=== PATIENT | female | born 1955 | race Caucasian/White ===

== ENCOUNTER → 2020-09-15 10:11 | Outpatient (BNVA) | payer MEDICARE, MEDICAID, SELFPAY | PROVIDERS: PCP Internal Medicine; Referring Provider Internal Medicine; Visit Provider Internal Medicine Cardiovascular Disease | DX: I48.0 Paroxysmal atrial fibrillation (principal) | CPT/HCPCS: 93005 ==

== ENCOUNTER 2020-10-06 10:48 | Outpatient (REF) | payer MEDICARE, MEDICAID, SELFPAY ==
[2020-10-06 12:03] LABS: Basophils Absolute Auto 0.1 X10*3/uL (0.0-0.2); Basophils Percent Auto 0.7 % (0-2); Eosinophils Absolute Auto 0.1 X10*3/uL (0.0-0.4); Eosinophils Percent Auto 1.8 % (0-4); Hematocrit 41.4 % (37-47); Imm Gran Abs Auto 0.02 X10*3/uL (0.00-0.03); Imm Gran Pct Auto 0.3 % (0.0-0.4); Lymphocytes Absolute Auto 2.5 X10*3/uL (1.2-4.9); Mean Corpuscular HGB Conc 31.4 g/dl (31.0-35.0); Mean Corpuscular Hemoglobin 28.4 pg (27.0-33.0); Mean Corpuscular Volume 90.4 fL (80-98); Mean Platelet Volume 13.5 fL (9.4-12.3); Monocytes Absolute Auto 0.9 X10*3/uL (0.1-1.2); Neutrophils Absolute Auto 3.6 X10*3/uL (2.0-8.3); Neutrophils Percent Auto 50.2 % (45-73); Red Blood Count 4.58 X10*6/uL (4.20-5.50); Red Cell Distribution Width 15.1 % (11.0-16.0)
[2020-10-06 12:21] LABS: Alanine Aminotransferase 34 U/L (0-31); Albumin Level 3.8 g/dL (3.5-5.0); Alkaline Phosphatase 92 U/L (39-117); Anion Gap 13 (12-20); Aspartate Amino Transferase 33 U/L (5-31); Bilirubin Total 0.4 mg/dL (0.0-1.0); Blood Urea Nitrogen 11 mg/dL (9-16); C Reactive Protein 0.06 mg/dL (< or = 0.50); Calcium 9.3 mg/dL (8.4-10.2); Carbon Dioxide 27 mmol/L (22-29); Chloride 107 mmol/L (96-108); Cholesterol 120 mg/dL; Estimated Glomerular Filt Rate > 60; Glucose Fasting 103 mg/dL (60-99); HDL Cholesterol 40 mg/dL; LDL Cholesterol Calculated 57 mg/dl; Potassium 4.7 mmol/l (3.3-5.1); Sodium 142 mmol/L (135-145); Total Protein 7.7 g/dL (6.5-8.0); Triglycerides 115 mg/dL
[2020-10-06 12:24] LABS: SCAN SMEAR FLAG N[; White Blood Count 7.1 X10*3/uL (4.8-10.8)
[2020-10-06 12:25] LABS: MANUAL DIFF FLAG SCAN; SLIDE REVIEW VERIFIED
[2020-10-06 12:41] LABS: Erythrocyte Sedimentation Rate 33 MM/HR (0-20)
== END 2020-10-06 10:49 | disposition home or self-care (01) ==
LOC: HO.LAB 10:48
PROVIDERS: Absent Provider Internal Medicine; PCP Internal Medicine; Visit Provider Student in an Organized Health Care Education/Training Program
DX: E78.00 Pure hypercholesterolemia, unspecified (principal); I48.0 Paroxysmal atrial fibrillation; M06.9 Rheumatoid arthritis, unspecified
CPT/HCPCS: 36415; 80053; 80061; 85025; 85652; 86140; 99212

== ENCOUNTER → 2020-12-17 09:26 | Outpatient (REF) | payer MEDICARE, MEDICAID, SELFPAY ==
--- NOTE | 2020-12-17 09:50 | CA_ITS ---
Transthoracic Echocardiogram Patient (Last, First, Middle): Leeanne Lozada, Gender: Female Date of : 1955 Age: 65 Procedure Date: 12/17/2020 Procedure Type: Transthoracic Echocardiogram Location: OP Height: 149.86 cm Weight: 77.11 kg BSA: 1.72 m2 Heart Rate: bpm BP: 110 / 70 mmHg Asp Net Developer: MONICA Referring MD: Noah Montoya MD Symptoms: AFIB Study Quality: Good ECG Rhythm: Sinus Conclusions: - The left ventricular systolic function is normal. The visually estimated ejection fraction is between 60-65%. - The left atrium is moderately dilated. - There is mild calcification of the aortic valve. - There is severe mitral annular calcification. Findings Left Ventricle Normal left ventricular cavity size. There is mildly increased left ventricular wall thickness. The left ventricular systolic function is normal. The visually estimated ejection fraction is between 60-65%. There is no evidence of regional wall motion abnormalities. E/E prime ratio is >15, consistent with elevated filling pressures. Evidence suggests grade I (mild) diastolic dysfunction. There is mild septal and mild basal asymmetric hypertrophy. Right Ventricle Normal right ventricular cavity size and systolic function. Atria The left atrium is moderately dilated. The right atrium is normal in size. Aortic Valve There is a normal trileaflet aortic valve. There is mild calcification of the aortic valve. There is no aortic valve stenosis. There is no aortic valve regurgitation. Mitral Valve There is severe mitral annular calcification. There is trace mitral valve regurgitation. There is no mitral valve stenosis. Pulmonic Valve The pulmonic valve was not well visualized. Tricuspid Valve Normal tricuspid valve structure. There is mild tricuspid valve regurgitation. The pulmonary artery systolic pressure is normal. Great Vessels The aortic annulus, sinuses of valsalva, asc aorta, and aortic arch are normal in size. Venous The inferior vena cava is normal in size and collapses greater than 50% with inspiration. Pericardium/Pleural There is no evidence of pericardial effusion. Prior Study Comparison No significant change compared to prior study dated: 11/20/2019. Measurements 2D Linear Measurements IVSd: 1.03 0.6-0.9/0.6-1.0 cm LVIDd: 3.54 3.9-5.3/4.2-5.9 cm LVIDd Index: 2.06 2.4-3.2/2.2-3.1 cm/m2 LVIDs: 2.26 2.0-3.6 cm LVPWd: 1.05 0.7-1.1 cm Ao Root: 2.90 2.1-3.5 cm LA Diam: 3.80 2.7-3.8/3.0-4.0 cm LAIDs Index: 2.21 1.5-2.3 cm/m2 LV Mass: 138.47 67-162/88-224 g LV Mass Index: 80.50 43-95/49-115 g/m2 LVOT Diam: 1.90 3.0+(-)1.3 cm 2D Systolic Function EF 4C: 51.30 >55% EF 2C: 55.60 >55% EF BiP: 53.10 >55% Mitral Valve MV VTI: 0.47 MV Pk Latrell: 1.50 MV Mn Latrell: 0.82 MV Pk Grad: 9.00 MV Mn Grad: 3.00 MV Pk E: 0.98 MV PK A: 1.41 MV Decel Time: 422.00 E/A: 0.70 E'Lateral: 5.77 E'Medial: 4.35 E/E' Med: 22.50 E/E' Lat: 17.00 PHT: 109.00 MVA PHT: 2.02 MVA Continuity: 1.93 Decel [place]: 2.78 Aortic Valve AoV Pk Latrell: 1.61 AoV Mn Latrell: 1.06 AoV VTI: 0.36 AoV Pk Grad: 10.00 Aov Mn Grad: 5.00 RICHARD Cont.VTI: 2.51 LVOT LVOT Pk Latrell: 1.31 LVOT Mn Latrell: 0.95 LVOT VTI: 0.32 LVOT Pk Grad: 7.00 LVOT Mn Grad: 4.00 LVOT Diam: 1.90 LVOT Area: 2.84 Diastolic Function MV Pk E: 0.98 MV Pk A: 1.41 E/A: 0.70 E'Medial: 4.35 E/E' Med: 22.50 E' Laterial: 5.77 E/E' Lat: 17.00 Tricuspid Valve TR Pk Latrell: 2.23 TR Pk Grad: 20.00 RA Press: 3.00 RVSP: 23.00 Great Vessels Aorta Ao Root-2D: 2.90 2.0-3.7 cm Ao Asc: 3.20 2.1-3.4 cm Ao Arch: 2.70 Updated in Other Vendor System with Status of Final Chuy Frederick MD electronically signed on 12/19/2020 1:11:44 PM with status of Final
== END ==
LOC: HO.CARD 09:26
PROVIDERS: PCP Internal Medicine; Visit Provider Internal Medicine Cardiovascular Disease
DX: I48.0 Paroxysmal atrial fibrillation (principal); I11.9 Hypertensive heart disease without heart failure
CPT/HCPCS: 93306

== ENCOUNTER → 2020-12-23 08:58 | Outpatient (BNVA) | payer MEDICARE, MEDICAID, SELFPAY | PROVIDERS: PCP Internal Medicine; Visit Provider Nurse Practitioner Family | DX: I48.0 Paroxysmal atrial fibrillation (principal); I44.1 Atrioventricular block, second degree; I10 Essential (primary) hypertension; I51.89 Other ill-defined heart diseases; G47.33 Obstructive sleep apnea (adult) (pediatric); Z99.89 Dependence on other enabling machines and devices | CPT/HCPCS: 93005; 99212 ==

== ENCOUNTER → 2021-01-06 09:31 | Outpatient (REF) | payer MEDICARE, MEDICAID, SELFPAY ==
--- NOTE | 2021-01-07 14:59 | ECG_ITS ---
Hook-up date: 2021-01-06 10:46:00 Duration: 28:39:00 Test Indications: PAF Medications: [id number] QRS complexes 10 Ventricular ectopics which represent <1 % of total QRS comp. 230 Supraventricular ectopics which represent <1 % of total QRS comp. * Paced QRS complexs which represent % of total QRS comp. VENTRICULAR ECTOPY 10 Isolated 0 Bigeminal Cycles 0 Couplets 0 Runs 0 Beats in Runs * Beats LONGEST at * BPM at :: -- * Beats FASTEST at * BPM at :: -- SUPRAVENTRICULAR ECTOPY 201 Isolated 5 Couplets 3 Runs 19 Beats in Runs 13 Beats LONGEST at 78 BPM at 01:22:11 2021-01-07 3 Beats FASTEST at 130 BPM at 15:54:15 2021-01-06 HEART RATES 48 MIN at 00:30:08 2021-01-07 73 AVG 97 MAX at 14:12:38 2021-01-06 LONGEST RR 1.3040 secs at 04:35:01 2021-01-07 S-T LEVELS Channel 1 - 128 mm at 10:46:00 2021-01-06 - 128 mm at 10:46:00 2021-01-06 Channel 2 - 128 mm at 10:46:00 2021-01-06 - 128 mm at 10:46:00 2021-01-06 Channel 3 - 128 mm at 03:00:51 -- - 128 mm at 03:00:51 Basic rhythm Normal sinus rhythm No long pause or profound bradycardia Occasional Premature atrial complexes No sustained Atrial fibrillation No diary submitted Referred By: Malorie Wright Overread By: PARIS RAIN MD
== END ==
LOC: HO.CARD 09:31
PROVIDERS: Visit Provider Nurse Practitioner Family
DX: I44.1 Atrioventricular block, second degree (principal); I48.0 Paroxysmal atrial fibrillation
CPT/HCPCS: 93226

== ENCOUNTER → 2021-02-03 09:42 | Outpatient (BNVA) | payer MEDICARE, MEDICAID, SELFPAY | PROVIDERS: Visit Provider Nurse Practitioner Family | DX: I48.0 Paroxysmal atrial fibrillation (principal); I44.1 Atrioventricular block, second degree; I11.9 Hypertensive heart disease without heart failure; G47.33 Obstructive sleep apnea (adult) (pediatric); Z99.89 Dependence on other enabling machines and devices; Z79.899 Other long term (current) drug therapy; Z87.891 Personal history of nicotine dependence | CPT/HCPCS: 93005; 99212 ==

== ENCOUNTER 2021-02-09 14:12 | Outpatient (REF) | payer MEDICARE, MEDICAID, SELFPAY ==
--- NOTE | ~2021-02-09 | US_ITS ---
EXAMINATION: US DIAGNOSTIC ULTRASOUND BREAST, LEFT CLINICAL INFORMATION: Left breast pain. COMPARISON: Mammography of same day. TECHNIQUE: Ultrasound of the breast is performed with real-time farris scale imaging and color Doppler. FINDINGS: Targeted left breast ultrasound demonstrated a minimally complex cyst about the some clot position 6 cm from the nipple measuring 4 x 4 by 3 mm in size. No suspicious solid mass or region of abnormal distal sound shadowing identified in region of patient's pain. Results are provided to the patient at time of visit by the technologist. US/US breast LT limited IMPRESSION: No mammographic or ultrasound findings to suggest malignancy. ASSESSMENT: BI-RADS 2: Benign RECOMMENDATION: Routine annual mammography screening due in 12 months.
--- NOTE | ~2021-02-09 | MM_ITS ---
EXAMINATION: MM DIAGNOSTIC DIGITAL BREAST TOMOSYNTHESIS, BILATERAL TARGETED LEFT BREAST ULTRASOUND CLINICAL INFORMATION: Mastodynia. The lifetime risk of breast cancer based on the Tyrer-Cuzick Model is 5.8%. COMPARISON: Mammography: None. TECHNIQUE: Digital breast tomosynthesis is performed in both the craniocaudal and mediolateral oblique views along with computer-aided detection (CAD). Synthesized 2D images are generated from the tomosynthesis. Targeted left breast ultrasound. FINDINGS: The breasts are almost entirely fatty (ACR BI-RADS breast composition Category a). The right breast appears unremarkable without abnormal dominant mass or suspicious grouping of microcalcifications. There is symmetric prominent retroareolar breast ducts present. Within the medial aspect of the left breast there is a mildly lobulated well-circumscribed 5 x 3 mm density approximately 6 cm from the nipple. There are some prominent retroareolar ducts. No suspicious grouping of microcalcifications. Targeted left breast ultrasound demonstrated a minimally complex cyst about the 7 o'clock position 6 cm from the nipple measuring 4 x 4 x 3 mm in size. No suspicious solid mass or region of abnormal distal sound shadowing identified in region of patient's pain. Results are provided to the patient at time of visit by the technologist. MM/MM tomosynthesis diagnostic BI IMPRESSION: No mammographic or ultrasound findings to suggest malignancy. ASSESSMENT: BI-RADS 2: Benign. RECOMMENDATION: Routine annual mammography screening due in 12 months. This patient's information was entered into a reminder system with a target due date for their next mammogram.
== END 2021-02-09 14:13 | disposition home or self-care (01) ==
LOC: HO.MAMMO 14:12
PROVIDERS: Visit Provider Internal Medicine
DX: N64.4 Mastodynia (principal)
CPT/HCPCS: 76642; 77062; 77066

== ENCOUNTER → 2021-03-03 09:58 | Outpatient (BNVA) | payer MEDICARE, MEDICAID, SELFPAY | PROVIDERS: PCP Internal Medicine; Visit Provider Nurse Practitioner Family | DX: I48.0 Paroxysmal atrial fibrillation (principal); I44.1 Atrioventricular block, second degree; I11.9 Hypertensive heart disease without heart failure; G47.33 Obstructive sleep apnea (adult) (pediatric); Z99.89 Dependence on other enabling machines and devices; Z79.899 Other long term (current) drug therapy | CPT/HCPCS: 93005; 99212 ==

== ENCOUNTER 2021-04-07 09:01 | Outpatient (REF) | payer MEDICARE, MEDICAID, SELFPAY ==
[2021-04-07 10:52] LABS: Basophils Percent Auto 0.5 % (0-2); Eosinophils Absolute Auto 0.1 X10*3/uL (0.0-0.4); Eosinophils Percent Auto 1.9 % (0-4); Hematocrit 44.1 % (37-47); Imm Gran Abs Auto 0.01 X10*3/uL (0.00-0.03); Imm Gran Pct Auto 0.2 % (0.0-0.4); Lymphocytes Absolute Auto 1.8 X10*3/uL (1.2-4.9); Lymphocytes Percent Auto 29.2 % (20-40); MANUAL DIFF FLAG SCAN; Mean Corpuscular HGB Conc 31.7 g/dl (31.0-35.0); Mean Corpuscular Hemoglobin 27.5 pg (27.0-33.0); Mean Corpuscular Volume 86.6 fL (80-98); Monocytes Absolute Auto 0.6 X10*3/uL (0.1-1.2); Monocytes Percent Auto 9.7 % (2-11); Neutrophils Absolute Auto 3.7 X10*3/uL (2.0-8.3); Neutrophils Percent Auto 58.5 % (45-73); PLT CLUMP 1; Red Blood Count 5.09 X10*6/uL (4.20-5.50); Red Cell Distribution Width 15.9 % (11.0-16.0); SCAN SMEAR FLAG 1
[2021-04-07 11:13] LABS: White Blood Count 6.3 X10*3/uL (4.8-10.8)
[2021-04-07 11:15] LABS: SLIDE REVIEW VERIFIED
[2021-04-07 11:16] LABS: Alanine Aminotransferase 28 U/L (0-31); Albumin Level 3.8 g/dL (3.5-5.0); Alkaline Phosphatase 86 U/L (39-117); Anion Gap 13 (12-20); Aspartate Amino Transferase 40 U/L (5-31); Bilirubin Total 0.5 mg/dL (0.0-1.0); Blood Urea Nitrogen 11 mg/dL (9-16); C Reactive Protein 0.69 mg/dL (< or = 0.50); Calcium 9.4 mg/dL (8.4-10.2); Carbon Dioxide 22 mmol/L (22-29); Chloride 108 mmol/L (96-108); Estimated Glomerular Filt Rate > 60; Glucose Random 84 mg/dL (60-115); Potassium 4.8 mmol/L (3.3-5.1); Sodium 138 mmol/L (135-145); Total Protein 8.5 g/dL (6.5-8.0)
[2021-04-07 11:45] LABS: Erythrocyte Sedimentation Rate 64 MM/HR (0-20)
== END 2021-04-07 09:02 | disposition home or self-care (01) ==
LOC: HO.LAB 09:01
PROVIDERS: PCP Internal Medicine; Visit Provider Student in an Organized Health Care Education/Training Program
DX: M05.9 Rheumatoid arthritis with rheumatoid factor, unspecified (principal)
CPT/HCPCS: 36415; 80053; 85025; 85652; 86140

== ENCOUNTER 2021-04-15 08:45 | Inpatient (IN) | payer MEDICARE, MEDICAID, SELFPAY ==
[2021-04-15] VITALS (15 sets, daily range): BP systolic 98–132; BP diastolic 55–79; PULSE 69–93; RESP 18–28; TEMP 36.2–37.6; O2SAT 87–96; BMI 33.1; BMI 32.8
--- NOTE | ~2021-04-15 | XR_ITS ---
EXAMINATION: XR CHEST CLINICAL INFORMATION: SOB. COMPARISON: Chest 11/24/2018 TECHNIQUE: Frontal view of the chest was obtained. FINDINGS: The lungs are expanded diffuse patchy opacity seen in both lower lobes and midline area suggestive interstitial pneumonitis or edema. No pleural effusion. No confluent opacity to suspect any consolidation or pneumonia seen. Heart size is normal. Pulmonary vascularity is mildly prominent.. No gross bony abnormality seen except for a total left left shoulder prosthesis XR/XR chest 1V IMPRESSION: New bilateral midlung and lower lobe interstitial pneumonitis/edema.
--- NOTE | ~2021-04-15 | XR_ITS ---
EXAMINATION: XR CHEST CLINICAL INFORMATION: Tachycardia. Question pneumonia. COMPARISON: Chest x-ray April 15, 2021 TECHNIQUE: Frontal view of the chest was obtained. FINDINGS: Extensive patchy bilateral airspace opacities appear similar. No gross lobar consolidation identified. No pleural effusion or pneumothorax. Partially visualized left shoulder prosthesis. XR/XR chest 1V IMPRESSION: Similar patchy bilateral airspace disease, nonspecific.
--- NOTE | 2021-04-15 09:50 | ECG_ITS ---
Test Reason : DYSPNEA Blood Pressure : / mmHG Vent. Rate : 070 BPM Atrial Rate : 070 BPM P-R Int : 160 ms QRS Dur : 070 ms QT Int : 426 ms P-R-T Axes : 016 020 058 degrees QTc Int : 460 ms Normal sinus rhythm Normal ECG When compared with ECG of 24-NOV-2018 07:22, No significant change was found Referred By: Katarina Loza Electronically Signed By:Brian Pacheco
--- NOTE | 2021-04-15 09:53 | ED_ITS ---
HPI - SOB/Dyspnea General Chief Complaint: Dyspnea Stated Complaint: DIFF BREATHING Time Seen by Provider: 04/15/21 09:50 History of Present Illness HPI Narrative: Patient is a 66-year-old female history of CVA, atrial fibrillation. Patient is on anticoagulation. Patient complaining of increasing shortness of breath. She is also on Xarelto. Patient previous history of smoking. Patient claims she got the vaccine. No history of congestive heart failure. Patient denies any acute change in medication. No coughing or congestion or upper respiratory symptoms. Patient from home. No vomiting. No chest pain. Feels weak and tired. Related Data Home Medications Medication Instructions Recorded Confirmed gabapentin 600 mg tablet 600 mg PO BID 08/25/20 04/15/21 atorvastatin 40 mg PO BEDTIME 04/15/21 04/15/21 Previous Rx's Medication Instructions Recorded adalimumab 40 mg/0.8 mL See Rx Instructions SUBCUT 09/18/20 subcutaneous pen kit .COMPLEX #1 ea rivaroxaban 20 mg tablet 20 mg PO DAILY #90 tab 12/11/20 atenolol 25 mg tablet 25 mg PO DAILY #30 tab 12/23/20 folic acid 1 mg tablet 1 mg PO DAILY #30 tab 01/07/21 dronedarone 400 mg tablet 400 mg PO BID 90 Days #180 tab 02/21/21 losartan 50 mg tablet 50 mg PO DAILY #90 tab 03/28/21 methotrexate sodium 2.5 mg tablet See Rx Instructions PO QWEEK #24 04/12/21 tab Allergies Allergy/AdvReac Type Severity Reaction Status Date / Time No Known Allergies Allergy Verified 03/03/21 10:08 [No Known Allergies*] Review of Systems Review of Systems: Constitutional: No Weight loss, No Fever, No Chills, No Night Sweats, No Fatigue, No Malaise ENT/Mouth: No Hearing loss, No Ear Pain, No Nasal Congestion, No Sinus Pain, No Hoarseness, No sore throat, No Rhinorrhea, No Swallowing Difficulty Eyes: No Eye Pain, No Swelling, No Redness, No Foreign Body, No Discharge, No Vision Changes Cardiovascular: No Chest Pain, positive shortness of breath, No Orthopnea, No Edema, No Palpitations Respiratory: No Cough, No Sputum, No Wheezing, No Smoke Exposure, No Dyspnea Gastrointestinal: No Nausea, No Vomiting, No Diarrhea, No Constipation, No abdominal Pain, No Hematochezia, No Melena Genitourinary: no irregular bleeding, No Dysuria, No Urinary Frequency, No Hematuria, No Urinary Incontinence, No Urgency, No Flank Pain, No Urinary Flow Changes, No Hesitancy Musculoskeletal: No joint pain, No Myalgias, No Joint Swelling Skin: No Skin Lesions, No rash Neuro: No Weakness, No Numbness, No Paresthesias, No Loss of Consciousness, No Dizziness, No Headache Psych: No Anxiety/Panic, No Depression, No SI/HI/AH/VH, No Social Issues, Heme/Lymph: No Bruising, No Bleeding,No Lymphadenopathy Endocrine: No Polyuria, No Polydipsia, No Temperature Intolerance Yes all other systems are reviewed and are negative [facility] Past Medical History Attestation statement: The following information was validated with the patient. Medical History Breast pain, left Chronic anticoagulation Diastolic dysfunction Essential hypertension GERD (gastroesophageal reflux disease) History of stroke Laryngitis Obstructive sleep apnea on CPAP Paroxysmal atrial fibrillation Pure hypercholesterolemia Rheumatoid arthritis Right hemiplegia Seropositive rheumatoid arthritis Surgical History History of foot surgery History of shoulder surgery Family History Family History Father No problems noted. Mother No problems noted. Brother Stomach cancer Social History Social History Alcohol intake: current Alcohol intake frequency: holidays/special occasions only Alcohol type: beer Patient Tobacco Use Status: Former Tobacco user Use of substances other than those prescribed or required for medical reasons: No Advance Directives: No Advance Directives Information Provided: No Physical Exam Vital Signs: Vital Signs: Last Vital Signs Temp 99.6 F 04/15/21 08:57 Pulse 75 04/15/21 11:32 Resp 24 H 04/15/21 11:32 BP 129/55 L 04/15/21 12:13 Pulse Ox 95 04/15/21 11:32 Body Mass Index 33.1 MDM - SOB/Dyspnea MDM Narrative Medical decision making narrative: Patient's chest x-ray consistent with congestive heart failure. With fluid in the lower half of the lung field. Patient's O2 sat drops to 89-88% on room air. With leg swelling. Patient BNP was elevated from baseline is in the 300s range baseline was 100. We will go and start patient on some Lasix. We will give her some nitro. Will admit for further evaluation. Medical Records Attestation: I reviewed the patient's medical records. Lab Data Attestation: I reviewed the patient's lab results. Result diagrams: 04/15/21 10:24 04/15/21 10:24 Labs: Lab Results 04/15/21 04/15/21 04/15/21 Range/Units 10:24 10:24 10:24 WBC 5.4 (4.8-10.8) X10*3/uL RBC 4.70 (4.20-5.50) X10*6/uL Hgb 12.8 (12.0-16.0) g/dl Hct 40.5 (37-47) % MCV 86.2 (80-98) fL MCH 27.2 (27.0-33.0) pg MCHC 31.6 (31.0-35.0) g/dl RDW 15.8 (11.0-16.0) % Plt Count 154 L (160-400) X10*3/uL MPV 12.9 H (9.4-12.3) fL Immature Gran % (Auto) 0.2 (0.0-0.4) % Neut % (Auto) 66.2 (45-73) % Lymph % (Auto) 25.4 (20-40) % [place] % (Auto) 6.5 (2-11) % Eos % (Auto) 1.5 (0-4) % Baso % (Auto) 0.2 (0-2) % Lymph # (Auto) 1.4 (1.2-4.9) X10*3/uL [place] # (Auto) 0.4 (0.1-1.2) X10*3/uL Eos # (Auto) 0.1 (0.0-0.4) X10*3/uL Baso # (Auto) 0.0 (0.0-0.2) X10*3/uL Abs Immat Gran (auto) 0.01 (0.00-0.03) X10*3/uL Absolute Neuts (auto) 3.6 (2.0-8.3) X10*3/uL Absolute Nucleated RBC 0.000 (0.0-0.012) X10*3/uL Nucleated RBC % (auto) 0.0 (0.0-0.2) /100WBC Hold Blue Top SEE NOTE Sodium (135-145) mmol/L Potassium (3.3-5.1) mmol/L Chloride (96-108) mmol/L Carbon Dioxide (22-29) mmol/L Anion Gap (12-20) BUN (9-16) mg/dL Creatinine (0.5-1.4) mg/dL Estim Creat Clear Calc Estimated GFR Random Glucose (60-115) mg/dL Calcium (8.4-10.2) mg/dL Troponin I High Sens 16.5 (<3.5-17.0) ng/L B-Natriuretic Peptide 351 H (<100) pg/mL TSH (0.32-4.0) uIU/mL Urine Color Urine Appearance Urine pH (5.0-8.0) Ur Specific Menard (1.005-1.025) Urine Protein (NEG-TRACE) MG/DL Urine Glucose (UA) (NEG) MG/DL Urine Ketones (NEG) MG/DL Urine Blood (NEG) Urine Nitrite (NEG) Ur Leukocyte Esterase (NEG) Coronavirus (PCR) (Negative) Influenza Type A (PCR) (Negative) Influenza Type B (PCR) (Negative) RSV RNA Qual (PCR) (Negative) 04/15/21 04/15/21 04/15/21 Range/Units 10:24 10:24 10:52 WBC (4.8-10.8) X10*3/uL RBC (4.20-5.50) X10*6/uL Hgb (12.0-16.0) g/dl Hct (37-47) % MCV (80-98) fL MCH (27.0-33.0) pg MCHC (31.0-35.0) g/dl RDW (11.0-16.0) % Plt Count (160-400) X10*3/uL MPV (9.4-12.3) fL Immature Gran % (Auto) (0.0-0.4) % Neut % (Auto) (45-73) % Lymph % (Auto) (20-40) % [place] % (Auto) (2-11) % Eos % (Auto) (0-4) % Baso % (Auto) (0-2) % Lymph # (Auto) (1.2-4.9) X10*3/uL [place] # (Auto) (0.1-1.2) X10*3/uL Eos # (Auto) (0.0-0.4) X10*3/uL Baso # (Auto) (0.0-0.2) X10*3/uL Abs Immat Gran (auto) (0.00-0.03) X10*3/uL Absolute Neuts (auto) (2.0-8.3) X10*3/uL Absolute Nucleated RBC (0.0-0.012) X10*3/uL Nucleated RBC % (auto) (0.0-0.2) /100WBC Hold Blue Top Sodium 137 (135-145) mmol/L Potassium 4.5 (3.3-5.1) mmol/L Chloride 107 (96-108) mmol/L Carbon Dioxide 22 (22-29) mmol/L Anion Gap 13 (12-20) BUN 13 (9-16) mg/dL Creatinine 0.81 (0.5-1.4) mg/dL Estim Creat Clear Calc 59.2 Estimated GFR > 60 Random Glucose 76 (60-115) mg/dL Calcium 8.9 (8.4-10.2) mg/dL Troponin I High Sens (<3.5-17.0) ng/L B-Natriuretic Peptide (<100) pg/mL TSH 1.14 (0.32-4.0) uIU/mL Urine Color YELLOW Urine Appearance CLEAR Urine pH 6.0 (5.0-8.0) Ur Specific [place]ard 1.020 (1.005-1.025) Urine Protein NEG (NEG-TRACE) MG/DL Urine Glucose (UA) NEG (NEG) MG/DL Urine Ketones NEG (NEG) MG/DL Urine Blood NEG (NEG) Urine Nitrite NEG (NEG) Ur Leukocyte Esterase NEG (NEG) Coronavirus (PCR) NEGATIVE (Negative) Influenza Type A (PCR) NEGATIVE (Negative) Influenza Type B (PCR) NEGATIVE (Negative) RSV RNA Qual (PCR) NEGATIVE (Negative) ECG Data Attestation: I personally reviewed and interpreted this ECG as follows: Interpretation: Patient's EKG showed a sinus pattern heart rate is 70 TN QRS QT within normal limits is no acute ST segment elevation noted. Discharge Plan Discharge Clinical Impression: Congestive heart failure Patient Disposition: Admitted As Inpatient
[2021-04-15 10:28] LABS: MANUAL DIFF FLAG NO
[2021-04-15 10:30] LABS: Basophils Percent Auto 0.2 % (0-2); Eosinophils Absolute Auto 0.1 X10*3/uL (0.0-0.4); Eosinophils Percent Auto 1.5 % (0-4); Hematocrit 40.5 % (37-47); Hemoglobin 12.8 g/dl (12.0-16.0); Imm Gran Abs Auto 0.01 X10*3/uL (0.00-0.03); Imm Gran Pct Auto 0.2 % (0.0-0.4); Lymphocytes Absolute Auto 1.4 X10*3/uL (1.2-4.9); Lymphocytes Percent Auto 25.4 % (20-40); Mean Corpuscular HGB Conc 31.6 g/dl (31.0-35.0); Mean Corpuscular Hemoglobin 27.2 pg (27.0-33.0); Mean Corpuscular Volume 86.2 fL (80-98); Mean Platelet Volume 12.9 fL (9.4-12.3); Monocytes Absolute Auto 0.4 X10*3/uL (0.1-1.2); Monocytes Percent Auto 6.5 % (2-11); Neutrophils Absolute Auto 3.6 X10*3/uL (2.0-8.3); Neutrophils Percent Auto 66.2 % (45-73); Platelet Count 154 X10*3/uL (160-400); Red Cell Distribution Width 15.8 % (11.0-16.0); White Blood Count 5.4 X10*3/uL (4.8-10.8)
--- NOTE | 2021-04-15 10:53 | PC.NURSE ---
patient up and ambulated to bathroom. upon return patient work of breathing increased. checkedo2 when return to room and sating in 80's. 2l o2 re applied and o2 up to 96% at this time. work of breathing decreased when patient resting in bed,
[2021-04-15 11:01] LABS: Anion Gap 13 (12-20); Blood Urea Nitrogen 13 mg/dL (9-16); Calcium 8.9 mg/dL (8.4-10.2); Carbon Dioxide 22 mmol/L (22-29); Chloride 107 mmol/L (96-108); Creatinine Clr Calc Pharmacy 59.2; Estimated Glomerular Filt Rate > 60; Glucose Random 76 mg/dL (60-115); Potassium 4.5 mmol/L (3.3-5.1); Sodium 137 mmol/L (135-145)
[2021-04-15 11:08] LABS: B Type Natriuretic Peptide 351 pg/mL (<100); Troponin-I High Sensitivity 16.5 ng/L (<3.5-17.0)
[2021-04-15 11:16] LABS: Glucose Urine UA NEG (NEG); Leukocyte Esterase Urine NEG (NEG); Nitrite Urine NEG (NEG); Urine Blood NEG (NEG); Urine Ketones NEG (NEG); Urine Protein NEG (NEG-TRACE)
[2021-04-15 11:17] LABS: Appearance Urine CLEAR; Color Urine YELLOW
[2021-04-15 11:20] LABS: Influenza A PCR NEGATIVE (Negative); Influenza B PCR NEGATIVE (Negative); Resp Syncy Virus RNA Qual PCR NEGATIVE (Negative); SARS COV2 PCR INHOUSE NEGATIVE (Negative)
[2021-04-15 11:23] LABS: TSH reflex Free T4 1.14 uIU/mL (0.32-4.0)
[2021-04-15] MEDS: Nitroglycerin 2 % Oint 1 GM Packet 0.5 INCH TRANSDERMA (11:31)
[2021-04-15] MEDS: Furosemide 40 MG/4 ML VIAL IVPUSH ×2 (11:31→20:54)
--- NOTE | 2021-04-15 15:17 | HP_ITS ---
DATE OF SERVICE: 04/15/2021 CHIEF COMPLAINT: Bilateral knee swelling and shortness of breath. HISTORY OF PRESENT ILLNESS: This is a 66-year-old female patient with multiple medical issues including history of diastolic dysfunction, essential hypertension, prior CVA on CPAP at night and on Xarelto for paroxysmal atrial fibrillation, presented to [facility] due to symptoms of bilateral knee swelling of 3 weeks duration, as well as shortness of breath with exertion of 2 weeks duration without associated chest pain. No PND or orthopnea. The patient has also been feeling fatigue and tiredness. In the emergency room, workup showed an elevated BNP of 351, troponin of 16.5. Chest x-ray showed new bilateral mid lung and lower lobe interstitial pneumonitis/edema. The patient denies any symptoms of fever or chills. No cough or sputum production. Denies any sick contacts. Lives alone at home. Status post COVID vaccine with a normal WBC count. Therefore, the patient was diagnosed to have congestive heart failure. There was no evidence of infection. The patient received 1 dose of IV Lasix and now being admitted to [facility] for continued monitoring and treatment. PAST MEDICAL HISTORY: 1. History of diastolic dysfunction. 2. History of essential hypertension. 3. History of GERD. 4. History of stroke with right hemiplegia. 5. History of obstructive sleep apnea, on CPAP. 6. History of paroxysmal atrial fibrillation. 7. History of hypercholesterolemia. 8. History of rheumatoid arthritis. 9. History of prior foot and shoulder surgery. FAMILY HISTORY: There is no family history of premature coronary artery disease. One brother has stomach cancer. SOCIAL HISTORY: The patient lives alone, ambulated with the help of a walker. She is a former smoker. Denies alcohol abuse or withdrawal symptoms. ALLERGIES: SHE HAS NO KNOWN DRUG ALLERGIES. MEDICATIONS: At home are: 1. Humira. She received her last shot on of this month. It has not been refilled by her PCP. 2. Atenolol 25 daily, Lipitor 40 mg at bedtime, Multaq 400 b.i.d., folic acid 1 mg daily, gabapentin 600 b.i.d., losartan 50 mg daily, methotrexate 2.5 mg 3 tablets at morning and 3 tablets at night and Xarelto 20 mg daily. REVIEW OF SYSTEMS: GATE WATCHMAN: Denies any headache. No dizziness. CVS: No chest pain. No palpitation. RESPIRATORY: Shortness of breath with exertion. No cough. No sputum production. GENERAL: No fever, no chills. SKIN: No rash. : No urinary symptoms of urgency or frequency. MUSCULOSKELETAL: Bilateral knee swelling and pain. PHYSICAL EXAMINATION: GENERAL: The patient is resting comfortably. Does not appear to be in acute distress. HEENT: Pupils equal, round, and reactive to light and accommodation. Anicteric sclerae. No nystagmus. NECK: Supple. No JVD. LUNGS: Clear to auscultation bilaterally. No crackles. No wheeze or rhonchi. No respiratory distress. HEART: Regular rate and rhythm. No murmurs. ABDOMEN: Soft, nontender. Bowel sounds are audible. EXTREMITIES: Without clubbing, cyanosis, or edema. Good peripheral pulses. NEURO EXAMINATION: Nonfocal. LABORATORY DATA: Showed WBC 5.4, hemoglobin 12.8, hematocrit 40.5, platelet count 154. Sodium 137, potassium 4.5, chloride 107, bicarb 22, BUN 13, and creatinine of 0.81, random blood sugar 76, calcium 8.9. BNP 351, 112 in 2019. Last echocardiogram in December of 2020 showed an EF of 60% to 65%, grade 1 diastolic dysfunction, and severe mitral calcification. ASSESSMENT AND PLAN: This is a 66-year-old female patient with history of paroxysmal atrial fibrillation on Xarelto, former smoker, history of obstructive sleep apnea on CPAP, presented to [facility] with 2 weeks history of shortness of breath with exertion and bilateral knee swelling. The patient will be admitted for continued monitoring and treatment for acute diastolic heart failure. 1. Acute on chronic diastolic congestive heart failure. The patient will be admitted to telemetry unit, will be treated with IV Lasix. Follow BMP and BNP. Follow I's and O's, daily weight. Strongly, recommend to follow a low-salt diet, since recently had an echocardiogram will hold off on repeat echo. If patient respond well to diuretic therapy, will discharge her home with addition of Lasix, will hold losartan to avoid hypotension since blood pressure is presently soft, Continue atenolol . 2. Obstructive sleep apnea with continued CPAP. 3. History of paroxysmally atrial fibrillation. The patient's ventricular rate is stable, currently in normal sinus rhythm. Continue Xarelto and atenolol. 4. Deep venous thrombosis prophylaxis, the patient is on Xarelto. 5. History of rheumatoid arthritis. The patient received last dose of Humira on 1st of this month. Needs to be followed by fire eater and primary care physician for continued use of Humira and methotrexate. MD ARJ Meadows/MICHAEL / [id number] MTDD
[2021-04-15] MEDS: Acetaminophen 325 MG TABLET 650 MG PO ×2 (16:41→22:24)
[2021-04-15] MEDS: 0.9 % Sodium Chloride Flush 3 ML SYRINGE IVFLUSH ×2 (16:41→20:54)
[2021-04-15] MEDS: Dronedarone HCl 400 MG TABLET PO (20:53)
[2021-04-15] MEDS: Gabapentin 600 MG TABLET PO (20:53)
[2021-04-16] VITALS (7 sets, daily range): BP systolic 90–125; BP diastolic 55–68; PULSE 65–80; RESP 18–20; TEMP 36.1–37.5; O2SAT 93–96
[2021-04-16 08:03] LABS: B Type Natriuretic Peptide 70 pg/mL (<100)
[2021-04-16 08:07] LABS: Blood Urea Nitrogen 20 mg/dL (9-16); Calcium 8.9 mg/dL (8.4-10.2); Creatinine Clr Calc Pharmacy 59.6; Estimated Glomerular Filt Rate > 60; Glucose Random 79 mg/dL (60-115)
[2021-04-16] MEDS: Dronedarone HCl 400 MG TABLET PO ×2 (08:23→20:21)
[2021-04-16] MEDS: Rivaroxaban 20 MG TABLET PO (08:23)
[2021-04-16] MEDS: atenoloL 25 MG TABLET PO (08:23)
[2021-04-16] MEDS: 0.9 % Sodium Chloride Flush 3 ML SYRINGE IVFLUSH ×3 (08:23→20:22)
[2021-04-16] MEDS: Furosemide 40 MG/4 ML VIAL IVPUSH ×2 (08:23→20:21)
[2021-04-16] MEDS: Gabapentin 600 MG TABLET PO ×2 (08:24→20:21)
[2021-04-16] MEDS: Folic Acid 1 MG TABLET PO (08:24)
[2021-04-16] MEDS: Omeprazole 20 MG CAPSULE.DR PO (08:24)
[2021-04-16 08:28] LABS: Anion Gap 17 (12-20); Carbon Dioxide 19 mmol/L (22-29); Chloride 105 mmol/L (96-108); Potassium 4.4 mmol/L (3.3-5.1); Sodium 137 mmol/L (135-145)
[2021-04-16 10:05] LABS: Troponin-I High Sensitivity 5.7 ng/L (<3.5-17.0)
[2021-04-16] MEDS: Acetaminophen 325 MG TABLET 650 MG PO ×2 (10:31→18:46)
--- NOTE | 2021-04-16 10:43 | MHC.CM.PN ---
CM met with Patient at bedside with a [facility] Auxiliary Equipment Tender and addressed IMM with Patient, providing her with the original and placing a copy on the chart. Patient lives alone in an apartment and requires no DME, nor O2 in the home. Home/no services is the goal and CM has initiated and will follow for dc planning. PCP is Dr. Dafne Pollard and Daughter/Leeanne is the HCP.
--- NOTE | 2021-04-16 14:21 | P.PNIM_ITS ---
Subjective Subjective Date of Service: 04/16/21 Interval History: history taken from pt in Telugu still with dyspnea + still on O2 2.5L NC edema improved no chest pain Physical Exam Vital Signs: Vital Signs: Last Vital Signs Temp 97.1 F 04/16/21 11:50 Pulse 65 04/16/21 11:50 Resp 20 04/16/21 11:50 BP 103/58 L 04/16/21 11:50 Pulse Ox 94 04/16/21 11:50 Body Mass Index 32.8 Gen: in no acute distress HEENT: sclera anicteric, moist mucus membranes Neck: supple Lungs: diminished at bases bilaterally Heart: regular rate and rhythm, no murmurs Abd: soft, non-tender, non-distended Ext: no edema Skin: warm/well-perfused Neuro: alert and oriented x3, no focal findings Psych: appropriate affect Objective Data Current Medications Generic Name Dose Route Start Last Admin Trade Name Freq PRN Reason Stop Dose Admin Acetaminophen 650 mg 04/15/21 12:38 04/16/21 10:31 Acetaminophen 325 Mg Tablet PO 650 mg Q6H PRN Administration Pain, Mild (Pain Scale 1-3) Atenolol 25 mg 04/16/21 09:00 04/16/21 08:23 Atenolol 25 Mg Tablet PO 25 mg DAILY RIAZ Administration Protocol Atorvastatin Calcium 40 mg 04/16/21 21:00 Atorvastatin Calcium 40 Mg Tablet PO BEDTIME RIAZ Dronedarone 400 mg 04/15/21 21:00 04/16/21 08:23 Dronedarone Hcl 400 Mg Tablet PO 400 mg BID RIAZ Administration Folic Acid 1 mg 04/16/21 09:00 04/16/21 08:24 Folic Acid 1 Mg Tablet PO 1 mg DAILY RIAZ Administration Furosemide 40 mg 04/15/21 19:00 04/16/21 08:23 Furosemide 40 Mg/4 Ml Vial IVPUSH 40 mg BID RIAZ Administration Protocol Gabapentin 600 mg 04/15/21 21:00 04/16/21 08:24 Gabapentin 600 Mg Tablet PO 600 mg BID RIAZ Administration Omeprazole 20 mg 04/16/21 09:00 04/16/21 08:24 Omeprazole 20 Mg Capsule.Dr PO 20 mg DAILY RIAZ Administration Ondansetron HCl 4 mg 04/15/21 12:38 Ondansetron Hcl 4 Mg/2 Ml Vial IVPUSH Q8H PRN Nausea and Vomiting Pharmacy Consult 1 each 04/15/21 11:24 Consult Rx Perform Med Rec MISCELLANE ONCE PRN Consult order Rivaroxaban 20 mg 04/16/21 09:00 04/16/21 08:23 Rivaroxaban 20 Mg Tablet PO 20 mg DAILY RIAZ Administration Sodium Chloride 3 ml 04/15/21 16:00 04/16/21 08:23 0.9 % Sodium Chloride Flush 3 Ml Syringe IVFLUSH 3 ml QSHIFT RIAZ Administration Labs CBC & Chem 7: 04/15/21 10:24 04/16/21 06:12 Assessment and Plan (1) Congestive heart failure: Status: Acute Assessment and Plan: hospital d#2 66yo F with pAF on rivaroxaban, HFpEF [grade 1 diastolic dysfunction Dec 2020], LOW on CPAP presented with 2 wk of LEDESMA + leg swelling, admitted for CHF exacerbation # acute/chronic HFpEF - continue IV furosemide, monitor I/O + BNP + BMP + Mg - restrict Na - hold losartan for low BP, continue atenolol # acute/chronic hypoxic resp failure - wean O2 as tolerated as she diureses # HTN - continue atenolol, hold losartan as above # pAF - continue atenolol - continue dronedarone - continue rivaroxaban # LOW - continue CPAP at night # RA - on adalimumab- f/u with Rheum as outpt and discuss whether this TNF-alpha inhibitor could be contributing to her CHF # VTE ppx - on rivaroxaban
[2021-04-16] MEDS: Atorvastatin Calcium 40 MG TABLET PO (20:21)
[2021-04-17] VITALS (11 sets, daily range): BP systolic 90–139; BP diastolic 54–78; PULSE 81–156; RESP 18–22; TEMP 36.2–38.4; O2SAT 92–97
--- NOTE | 2021-04-17 | ECG_ITS ---
Test Reason : CHECK RHYTHM Blood Pressure : / mmHG Vent. Rate : 137 BPM Atrial Rate : 137 BPM P-R Int : 368 ms QRS Dur : 072 ms QT Int : 310 ms P-R-T Axes : 000 029 036 degrees QTc Int : 468 ms Supraventricular tachycardia vs Atrial flutter Nonspecific ST and T wave abnormality Abnormal ECG When compared with ECG of 15-APR-2021 11:00, Vent. rate has increased BY 67 BPM Narrow complex tachycardia present Referred By: Miguelina Mata Electronically Signed By:Brian Pacheco
[2021-04-17] MEDS: HYDROcodone Bit/Acetam 5/325 TABLET 1 TAB PO ×2 (01:32→12:06)
[2021-04-17] MEDS: Acetaminophen 325 MG TABLET 650 MG PO ×3 (03:34→22:38)
--- NOTE | 2021-04-17 06:11 | PM.EVENT ---
Event Note Date of Service: 04/17/21 Event Note: pt developed tachycardia overnight. Sent cultures, lactic acid, as well as UA
[2021-04-17 07:04] LABS: Lactic Acid 1.1 mmol/L (0.5-2.0)
[2021-04-17 07:09] LABS: Anion Gap 15 (12-20); Blood Urea Nitrogen 29 mg/dL (9-16); Calcium 8.6 mg/dL (8.4-10.2); Carbon Dioxide 20 mmol/L (22-29); Chloride 103 mmol/L (96-108); Creatinine Clr Calc Pharmacy 36.4; Estimated Glomerular Filt Rate 40; Glucose Random 88 mg/dL (60-115); Magnesium 2.1 mg/dL (1.6-2.6); Sodium 134 mmol/L (135-145)
[2021-04-17 07:10] LABS: B Type Natriuretic Peptide 134 pg/mL (<100)
[2021-04-17] MEDS: 0.9 % Sodium Chloride Flush 3 ML SYRINGE IVFLUSH ×3 (08:29→20:51)
[2021-04-17] MEDS: Lactated Ringers 1,000 ML 999 ML IV ×2 (08:29→13:06)
[2021-04-17 08:33] LABS: Basophils Percent Auto 0.2 % (0-2); Hemoglobin 12.8 g/dl (12.0-16.0); MANUAL DIFF FLAG SCAN; Red Cell Distribution Width 15.5 % (11.0-16.0); SCAN SMEAR FLAG 1
[2021-04-17 08:35] LABS: Eosinophils Absolute Auto 0.1 X10*3/uL (0.0-0.4); Eosinophils Percent Auto 1.1 % (0-4); Hematocrit 40.1 % (37-47); Imm Gran Abs Auto 0.02 X10*3/uL (0.00-0.03); Imm Gran Pct Auto 0.2 % (0.0-0.4); Lymphocytes Percent Auto 35.5 % (20-40); Mean Corpuscular HGB Conc 31.9 g/dl (31.0-35.0); Mean Corpuscular Hemoglobin 27.1 pg (27.0-33.0); Mean Platelet Volume 13.1 fL (9.4-12.3); Monocytes Absolute Auto 0.7 X10*3/uL (0.1-1.2); Monocytes Percent Auto 8.1 % (2-11); Neutrophils Absolute Auto 4.6 X10*3/uL (2.0-8.3); Neutrophils Percent Auto 54.9 % (45-73); PLT CLUMP 1; Red Blood Count 4.72 X10*6/uL (4.20-5.50)
[2021-04-17 08:37] LABS: PLT ABN DIST 1
[2021-04-17 09:01] LABS: Platelet Count 190 X10*3/uL (160-400); White Blood Count 8.4 X10*3/uL (4.8-10.8)
[2021-04-17 09:02] LABS: SLIDE REVIEW VERIFIED
[2021-04-17 09:27] LABS: Procalcitonin 0.05 ng/mL
[2021-04-17] MEDS: vancomycin HCL 1,500 MG in 0.9 % Sodium Chloride 500 ML 333.33 MG IV (10:02)
[2021-04-17 11:07] LABS: Glucose Urine UA NEG (NEG); Leukocyte Esterase Urine 1+ (NEG); Nitrite Urine NEG (NEG); Urine Blood NEG (NEG); Urine Ketones NEG (NEG); Urine Protein NEG (NEG-TRACE)
[2021-04-17 11:29] LABS: Appearance Urine HAZY; Color Urine YELLOW
[2021-04-17 11:39] LABS: RBC Urine 0 /HPF (0)
[2021-04-17 11:40] LABS: Bacteria Urine TRACE /LPF; Granular Casts Urine 0-2 /LPF; Mucus Urine TRACE /LPF; Squamous Epithelial Cell Urine 1+ /LPF
--- NOTE | 2021-04-17 11:52 | PM.CNCAR ---
History of Present Illness History of Present Illness Date of Service: 04/17/21 Requesting physician: Kelli Zayas Chief complaint: Atrial flutter Narrative: 66-year-old female with background history of diastolic heart failure, hypertension, stroke, paroxysmal atrial fibrillation on Multaq and Xarelto, hyperlipidemia and gastroesophageal reflux disease who is here for body aches. She was admitted with concern for congestive heart failure. She has been noticed to have regular tachycardia on telemetry. We have been asked to help manage this. She is not complaining of any palpitations. She lost her IV access this morning and an IV was being put in and she was very emotional and in pain at the time of interview. She denied palpitations. She denies any chest pain or any other issues. She was lying completely flat in bed. [facility] Past Medical History Medical History Breast pain, left Chronic anticoagulation Diastolic dysfunction Essential hypertension GERD (gastroesophageal reflux disease) History of stroke Laryngitis Obstructive sleep apnea on CPAP Paroxysmal atrial fibrillation Pure hypercholesterolemia Rheumatoid arthritis Right hemiplegia Seropositive rheumatoid arthritis Family History Family History Father No problems noted. Mother No problems noted. Brother Stomach cancer Surgical History Surgical History History of foot surgery History of shoulder surgery Social History Social History Household Members: None Housing: House Do you presently have visiting nurse or other home services: No Alcohol intake: current Alcohol intake frequency: holidays/special occasions only Alcohol type: beer Patient Tobacco Use Status: Former Tobacco user Use of substances other than those prescribed or required for medical reasons: No Currently Displaying Signs/Symptoms of Drug Intoxication Withdrawal: No Any prior treatment program specific to substance use: No Have you been hit, kicked, punched, or otherwise hurt by someone within the past year? If so, by whom?: No Do you feel safe in your current relationship?: No Current Relationship Is there a partner from a previous relationship who is making you feel unsafe now?: No Are you made to feel afraid or neglected: No Advance Directives: No Advance Directives Information Provided: No Do you have thoughts of harming others: None Do you have a plan to hurt others: No Plan Recently lost weight without trying: No How much weight loss: Not applicable Eating poorly because of decreased appetite: No Nutrition screen score: 0 Nutrition Risks: No Nutritional Risk Patient : No : No Poor oral hygiene: No service: No Current occupational status: retired [employer] Allergies Allergy/AdvReac Type Severity Reaction Status Date / Time No Known Allergies Allergy Verified 03/03/21 10:08 [No Known Allergies*] Active Medications: Current Medications Generic Name Dose Route Start Last Admin Trade Name Freq PRN Reason Stop Dose Admin Acetaminophen 650 mg 04/15/21 12:38 04/17/21 03:34 Acetaminophen 325 Mg Tablet PO 650 mg Q6H PRN Administration Pain, Mild (Pain Scale 1-3) Hydrocodone Bitart/Acetaminophen 1 tab 04/16/21 18:49 04/17/21 01:32 Hydrocodone Bit/Acetam 5/325 Tablet PO 1 tab Q6H PRN Administration Pain, Moderate (Pain Scale 4-6 Amiodarone HCl 400 mg 04/17/21 15:00 Amiodarone Hcl 200 Mg Tablet PO TID RIAZ Atenolol 25 mg 04/16/21 09:00 04/16/21 08:23 Atenolol 25 Mg Tablet PO 25 mg DAILY RIAZ Administration Protocol Atorvastatin Calcium 40 mg 04/16/21 21:00 04/16/21 20:21 Atorvastatin Calcium 40 Mg Tablet PO 40 mg BEDTIME RIAZ Administration Folic Acid 1 mg 04/16/21 09:00 04/16/21 08:24 Folic Acid 1 Mg Tablet PO 1 mg DAILY RIAZ Administration Gabapentin 600 mg 04/15/21 21:00 04/16/21 20:21 Gabapentin 600 Mg Tablet PO 600 mg BID RIAZ Administration Piperacillin Sod/Tazobactam 50 mls @ 100 mls/hr 04/17/21 09:00 Sod 3.375 gm/ Sodium Chloride IV Q6H RIAZ Vancomycin HCl 1,000 mg/ 270 mls @ 270 mls/hr 04/18/21 09:00 Sodium Chloride IV Q24H RIAZ Lactated Ringer's 1,000 mls @ 999 mls/hr 04/17/21 11:00 Lr IV 04/17/21 12:00 .Q1H1M RIAZ Omeprazole 20 mg 04/16/21 09:00 04/16/21 08:24 Omeprazole 20 Mg Capsule. PO 20 mg DAILY RIAZ Administration Ondansetron HCl 4 mg 04/15/21 12:38 Ondansetron Hcl 4 Mg/2 Ml Vial IVPUSH Q8H PRN Nausea and Vomiting Pharmacy Consult 1 each 04/15/21 11:24 Consult Rx Perform Med Rec MISCELLANE ONCE PRN Consult order Pharmacy Consult 1 each 04/17/21 08:23 Consult Rx Vancomycin Dosing MISCELLANE DAILY PRN Consult order Rivaroxaban 20 mg 04/16/21 09:00 04/16/21 08:23 Rivaroxaban 20 Mg Tablet PO 20 mg DAILY RIAZ Administration Sodium Chloride 3 ml 04/15/21 16:00 04/17/21 08:29 0.9 % Sodium Chloride Flush 3 Ml Syringe IVFLUSH 3 ml QSHIFT RIAZ Administration Home Medications Medication Instructions Recorded Confirmed Last Taken Type gabapentin 600 mg tablet 600 mg PO BID 08/25/20 04/15/21 Unknown History atorvastatin 40 mg PO BEDTIME 04/15/21 04/15/21 Unknown History Physical Exam Vital Signs: Vital Signs: Last Vital Signs Temp 97.8 F 04/17/21 07:35 Pulse 139 H 04/17/21 07:35 Resp 20 04/17/21 07:35 BP 90/65 04/17/21 03:11 Pulse Ox 93 04/17/21 07:35 Body Mass Index 32.8 GENERAL APPEARANCE: Distressed and crying while getting IV access. NECK: no carotid bruit. SKIN: no suspicious lesions, warm and dry. HEART: no murmurs, regular tachycardia. LUNGS: clear to auscultation bilaterally. ABDOMEN: soft, nontender. EXTREMITIES: Mild edema. PERIPHERAL PULSES: equal. NEUROLOGIC: No gross deficits, AAO X 3 Results Labs and Meds Result diagrams: 04/17/21 08:10 04/17/21 05:42 Lab results: Laboratory Results - last 24 hr 04/17/21 04/17/21 04/17/21 05:42 05:42 05:42 WBC RBC Hgb Hct MCV MCH MCHC RDW Plt Count MPV Immature Gran % (Auto) Neut % (Auto) Lymph % (Auto) [place] % (Auto) Eos % (Auto) Baso % (Auto) Lymph # (Auto) [place] # (Auto) Eos # (Auto) Baso # (Auto) Abs Immat Gran (auto) Absolute Neuts (auto) Absolute Nucleated RBC Nucleated RBC % (auto) Smear Tech's Comments Sodium 134 L Potassium 4.0 Chloride 103 Carbon Dioxide 20 L Anion Gap 15 BUN 29 H Creatinine 1.31 Estim Creat Clear Calc 36.4 Estimated GFR 40 Random Glucose 88 Lactic Acid Calcium 8.6 Magnesium 2.1 B-Natriuretic Peptide 134 H Procalcitonin 0.05 Urine Color Urine Appearance Urine pH Ur Specific [place] Urine Protein Urine Glucose (UA) Urine Ketones Urine Blood Urine Nitrite Ur Leukocyte Esterase Urine RBC Urine WBC Ur Squamous Epith Cells Urine Bacteria Granular Casts Urine Mucus 04/17/21 04/17/21 04/17/21 06:31 08:10 10:45 WBC 8.4 RBC 4.72 Hgb 12.8 Hct 40.1 MCV 85.0 MCH 27.1 MCHC 31.9 RDW 15.5 Plt Count 190 MPV 13.1 H Immature Gran % (Auto) 0.2 Neut % (Auto) 54.9 Lymph % (Auto) 35.5 [place] % (Auto) 8.1 Eos % (Auto) 1.1 Baso % (Auto) 0.2 Lymph # (Auto) 3.0 [place] # (Auto) 0.7 Eos # (Auto) 0.1 Baso # (Auto) 0.0 Abs Immat Gran (auto) 0.02 Absolute Neuts (auto) 4.6 Absolute Nucleated RBC 0.000 Nucleated RBC % (auto) 0.0 Smear Tech's Comments VERIFIED Sodium Potassium Chloride Carbon Dioxide Anion Gap BUN Creatinine Estim Creat Clear Calc Estimated GFR Random Glucose Lactic Acid 1.1 Calcium Magnesium B-Natriuretic Peptide Procalcitonin Urine Color YELLOW Urine Appearance HAZY Urine pH 6.0 Ur Specific [place] 1.010 Urine Protein NEG Urine Glucose (UA) NEG Urine Ketones NEG Urine Blood NEG Urine Nitrite NEG Ur Leukocyte Esterase 1+ H Urine RBC 0 Urine WBC 5-9 H Ur Squamous Epith Cells 1+ Urine Bacteria TRACE Granular Casts 0-2 Urine Mucus TRACE Assessment and Plan (1) Atrial flutter: Status: Acute (2) Congestive heart failure: Status: Acute 66-year-old female with background of paroxysmal atrial fibrillation and diastolic heart failure. She is admitted for body aches and concern for congestive heart failure. She has developed narrow complex regular tachycardia. The differentials are SVT versus atrial flutter. I did vagal maneuvers including carotid sinus massage as well as Valsalva but she continues to be in narrow complex tachycardia. I think this is likely atrial flutter. She is on Multaq. We will stop the Multaq and put on amiodarone 400 mg twice a day. She has IV access. If she continues to be in flutter till tomorrow she may need cardioversion. Please keep her NPO and continue the Xarelto as before. Clinically right now does not look in bed heart failure. Laying flat in bed without any symptoms and not short of breath.. Thank you for allowing me to participate in the care of your patient. Please feel free to contact me if you have any questions. Procedures Date of Service Date of Service: 04/17/21
[2021-04-17] MEDS: Rivaroxaban 20 MG TABLET PO (12:06)
[2021-04-17] MEDS: Gabapentin 600 MG TABLET PO ×2 (12:06→20:51)
[2021-04-17] MEDS: Omeprazole 20 MG CAPSULE.DR PO (12:07)
[2021-04-17] MEDS: Folic Acid 1 MG TABLET PO (12:07)
--- NOTE | 2021-04-17 12:57 | HO.PM.IMPN ---
Subjective Subjective Date of Service: 04/17/21 Interval History: Overnight, pt developed regular narrow-complex tachycardia, which has accelerated from the 120s to the 150s now. She also developed low-grade fever of 100.8. This AM, she became hypotensive with SBP 77, improved to 90 after 1L of LR. Ongoing dyspnea and endorses dry cough as well. Still on O2 2.5L via NC. Denies chest pain or palpitations. Physical Exam Vital Signs: Vital Signs: Last Vital Signs Temp 97.8 F 04/17/21 07:35 Pulse 139 H 04/17/21 07:35 Resp 20 04/17/21 07:35 BP 90/65 04/17/21 03:11 Pulse Ox 93 04/17/21 07:35 Body Mass Index 32.8 Gen: anxious, upset HEENT: sclera anicteric, moist mucus membranes Neck: supple Lungs: diminished bilaterally Heart: regular tachycardia, no murmurs noted Abd: soft, non-tender, non-distended Ext: no edema Skin: warm/well-perfused Neuro: alert and oriented x3, no focal findings Psych: appropriate affect Objective Data Current Medications Generic Name Dose Route Start Last Admin Trade Name Freq PRN Reason Stop Dose Admin Acetaminophen 650 mg 04/15/21 12:38 04/17/21 03:34 Acetaminophen 325 Mg Tablet PO 650 mg Q6H PRN Administration Pain, Mild (Pain Scale 1-3) Hydrocodone Bitart/Acetaminophen 1 tab 04/16/21 18:49 04/17/21 12:06 Hydrocodone Bit/Acetam 5/325 Tablet PO 1 tab Q6H PRN Administration Pain, Moderate (Pain Scale 4-6 Amiodarone HCl 400 mg 04/17/21 15:00 Amiodarone Hcl 200 Mg Tablet PO TID RIAZ Atenolol 25 mg 04/16/21 09:00 04/17/21 12:06 Atenolol 25 Mg Tablet PO Not Given DAILY [facility] Protocol Atorvastatin Calcium 40 mg 04/16/21 21:00 04/16/21 20:21 Atorvastatin Calcium 40 Mg Tablet PO 40 mg BEDTIME RIAZ Administration Folic Acid 1 mg 04/16/21 09:00 04/17/21 12:07 Folic Acid 1 Mg Tablet PO 1 mg DAILY RIAZ Administration Gabapentin 600 mg 04/15/21 21:00 04/17/21 12:06 Gabapentin 600 Mg Tablet PO 600 mg BID RIAZ Administration Piperacillin Sod/Tazobactam 50 mls @ 100 mls/hr 04/17/21 09:00 Sod 3.375 gm/ Sodium Chloride IV Q6H RIAZ Vancomycin HCl 1,000 mg/ 270 mls @ 270 mls/hr 04/18/21 09:00 Sodium Chloride IV Q24H RIAZ Omeprazole 20 mg 04/16/21 09:00 04/17/21 12:07 Omeprazole 20 Mg Capsule.Dr PO 20 mg DAILY RIAZ Administration Ondansetron HCl 4 mg 04/15/21 12:38 Ondansetron Hcl 4 Mg/2 Ml Vial IVPUSH Q8H PRN Nausea and Vomiting Pharmacy Consult 1 each 04/15/21 11:24 Consult Rx Perform Med Rec MISCELLANE ONCE PRN Consult order Pharmacy Consult 1 each 04/17/21 08:23 Consult Rx Vancomycin Dosing MISCELLANE DAILY PRN Consult order Rivaroxaban 20 mg 04/16/21 09:00 04/17/21 12:06 Rivaroxaban 20 Mg Tablet PO 20 mg DAILY RIAZ Administration Sodium Chloride 3 ml 04/15/21 16:00 04/17/21 08:29 0.9 % Sodium Chloride Flush 3 Ml Syringe IVFLUSH 3 ml QSHIFT RIAZ Administration Labs CBC & Chem 7: 04/17/21 08:10 04/17/21 05:42 Labs: Laboratory Results - last 24 hr 04/17/21 04/17/21 04/17/21 05:42 05:42 05:42 WBC RBC Hgb Hct MCV MCH MCHC RDW Plt Count MPV Immature Gran % (Auto) Neut % (Auto) Lymph % (Auto) [place] % (Auto) Eos % (Auto) Baso % (Auto) Lymph # (Auto) [place] # (Auto) Eos # (Auto) Baso # (Auto) Abs Immat Gran (auto) Absolute Neuts (auto) Absolute Nucleated RBC Nucleated RBC % (auto) Smear Tech's Comments Sodium 134 L Potassium 4.0 Chloride 103 Carbon Dioxide 20 L Anion Gap 15 BUN 29 H Creatinine 1.31 Estim Creat Clear Calc 36.4 Estimated GFR 40 Random Glucose 88 Lactic Acid Calcium 8.6 Magnesium 2.1 B-Natriuretic Peptide 134 H Procalcitonin 0.05 Urine Color Urine Appearance Urine pH Ur Specific [place] Urine Protein Urine Glucose (UA) Urine Ketones Urine Blood Urine Nitrite Ur Leukocyte Esterase Urine RBC Urine WBC Ur Squamous Epith Cells Urine Bacteria Granular Casts Urine Mucus 04/17/21 04/17/21 04/17/21 06:31 08:10 10:45 WBC 8.4 RBC 4.72 Hgb 12.8 Hct 40.1 MCV 85.0 MCH 27.1 MCHC 31.9 RDW 15.5 Plt Count 190 MPV 13.1 H Immature Gran % (Auto) 0.2 Neut % (Auto) 54.9 Lymph % (Auto) 35.5 [place] % (Auto) 8.1 Eos % (Auto) 1.1 Baso % (Auto) 0.2 Lymph # (Auto) 3.0 [place] # (Auto) 0.7 Eos # (Auto) 0.1 Baso # (Auto) 0.0 Abs Immat Gran (auto) 0.02 Absolute Neuts (auto) 4.6 Absolute Nucleated RBC 0.000 Nucleated RBC % (auto) 0.0 Smear Tech's Comments VERIFIED Sodium Potassium Chloride Carbon Dioxide Anion Gap BUN Creatinine Estim Creat Clear Calc Estimated GFR Random Glucose Lactic Acid 1.1 Calcium Magnesium B-Natriuretic Peptide Procalcitonin Urine Color YELLOW Urine Appearance HAZY Urine pH 6.0 Ur Specific [place] 1.010 Urine Protein NEG Urine Glucose (UA) NEG Urine Ketones NEG Urine Blood NEG Urine Nitrite NEG Ur Leukocyte Esterase 1+ H Urine RBC 0 Urine WBC 5-9 H Ur Squamous Epith Cells 1+ Urine Bacteria TRACE Granular Casts 0-2 Urine Mucus TRACE Impressions Chest X-Ray 04/17/21 11:55 IMPRESSION: Similar patchy bilateral airspace disease, nonspecific. Assessment and Plan (1) Congestive heart failure: Status: Acute Assessment and Plan: hospital d#3 66yo F with pAF on rivaroxaban, HFpEF [grade 1 diastolic dysfunction Dec 2020], LOW on CPAP presented with 2 wk of LEDESMA + leg swelling, admitted for CHF exacerbation now with atrial flutter and hypotension and fever # atrial flutter/RVR - Cardiology consulted. d/c Multaq and start amiodarone PO. NPO after midnight in case cardioversion needed. continue anticoagulation with rivaroxaban. # hypotension, fluid-responsive # RICKI - hold diuresis and give another 1L LR. atenolol + losartan held. # fever - not, strictly speaking, septic; but suspect infection with either PNA or UTI and she is immunosuppressed on Humira. BCx + UCx sent and will start broad-spectrum coverage with vanco + pip/bhargav # acute/chronic HFpEF - was originally admitted for diuresis but now appears hypovolemic so getting fluids as above - holding ARB + [place] as above # acute/chronic hypoxic resp failure - wean O2 as tolerated # LOW - continue CPAP at night # RA - on adalimumab- f/u with Rheum as outpt and discuss whether this TNF-alpha inhibitor could be contributing to her CHF # VTE ppx - on rivaroxaban
[2021-04-17] MEDS: Piperacillin Sodium/Tazobactam 3.375 GM in 0.9 % Sodium Chloride 50 ML IV ×2 (14:34→20:51)
[2021-04-17] MEDS: Amiodarone HCL 200 MG TABLET 400 MG PO ×2 (14:34→20:51)
--- NOTE | 2021-04-17 18:12 | PC.NURSE ---
At 0645, patient noted to be in sinus tach/?a-flutter in the 120s to 140s. As of 0830, HR in the 150-160s. Ict Managers and hospitalist notified. BP in the 70s; patient denies s/s of hypotension, in t-[place]. IV access lost, [employer]ING [employer] performed US guided IV placement. 2 L LR given, amiodorone given with good effect. Patient back in SR around 1530, BP up to 103 systolic. Patient had temp of 101.2, tylenol given with good effect, temp WNL. No further issues.
[2021-04-17] MEDS: Atorvastatin Calcium 40 MG TABLET PO (20:51)
[2021-04-18] VITALS (7 sets, daily range): BP systolic 96–164; BP diastolic 50–75; PULSE 64–83; RESP 18–20; TEMP 36.2–37.4; O2SAT 90–96
--- NOTE | 2021-04-18 | ECG_ITS ---
Test Reason : CONVERTED TO NSR Blood Pressure : / mmHG Vent. Rate : 067 BPM Atrial Rate : 067 BPM P-R Int : 162 ms QRS Dur : 062 ms QT Int : 436 ms P-R-T Axes : 011 017 049 degrees QTc Int : 460 ms Normal sinus rhythm Normal ECG When compared with ECG of 17-APR-2021 03:27, Vent. rate has decreased BY 70 BPM Nonspecific T wave abnormality no longer evident in Lateral leads Normal sinus rhythm has replaced atrial flutter Referred By: Mike Storm Electronically Signed By:PARIS RAIN MD
[2021-04-18] MEDS: Piperacillin Sodium/Tazobactam 3.375 GM in 0.9 % Sodium Chloride 50 ML IV ×2 (03:31→09:45)
[2021-04-18 04:50] LABS: Hematocrit 36.7 % (37-47); Hemoglobin 11.6 g/dl (12.0-16.0); Mean Corpuscular HGB Conc 31.6 g/dl (31.0-35.0); Mean Corpuscular Hemoglobin 27.2 pg (27.0-33.0); Mean Corpuscular Volume 85.9 fL (80-98); Mean Platelet Volume 12.9 fL (9.4-12.3); Platelet Count 115 X10*3/uL (160-400); Red Blood Count 4.27 X10*6/uL (4.20-5.50); Red Cell Distribution Width 15.9 % (11.0-16.0); White Blood Count 5.6 X10*3/uL (4.8-10.8)
[2021-04-18 05:13] LABS: Anion Gap 11 (12-20); Blood Urea Nitrogen 17 mg/dL (9-16); Calcium 8.1 mg/dL (8.4-10.2); Carbon Dioxide 23 mmol/L (22-29); Chloride 110 mmol/L (96-108); Creatinine Clr Calc Pharmacy 60.4; Estimated Glomerular Filt Rate > 60; Glucose Random 83 mg/dL (60-115); Potassium 3.9 mmol/L (3.3-5.1); Sodium 140 mmol/L (135-145)
[2021-04-18 05:14] LABS: B Type Natriuretic Peptide 752 pg/mL (<100)
[2021-04-18] MEDS: vancomycin HCL 1,000 MG in 0.9 % Sodium Chloride 250 ML 270 MG IV (07:21)
[2021-04-18] MEDS: HYDROcodone Bit/Acetam 5/325 TABLET 1 TAB PO ×2 (07:21→13:48)
[2021-04-18] MEDS: Rivaroxaban 20 MG TABLET PO (07:22)
[2021-04-18] MEDS: Amiodarone HCL 200 MG TABLET 400 MG PO ×2 (07:22→20:23)
[2021-04-18] MEDS: atenoloL 25 MG TABLET PO (07:22)
[2021-04-18] MEDS: Folic Acid 1 MG TABLET PO (07:22)
[2021-04-18] MEDS: 0.9 % Sodium Chloride Flush 3 ML SYRINGE IVFLUSH ×3 (07:22→23:54)
[2021-04-18] MEDS: Omeprazole 20 MG CAPSULE.DR PO (07:22)
[2021-04-18] MEDS: Gabapentin 600 MG TABLET PO ×2 (07:23→20:23)
--- NOTE | 2021-04-18 10:59 | PM.PNCARD ---
Subjective Subjective Date of Service: 04/18/21 Principal diagnosis: AF Interval history: Patient converted to sinus rhythm yesterday at 16:00. No EKG performed. Still requiring high levels of oxygen. This is being tapered down. Receiving IV antibiotics for questionable pneumonia. BNP is further elevated today. Blood pressure is stable this morning Review of Systems Constitutional: Reports no additional constitutional complaints Cardiovascular: Denies chest pain, Denies palpitations and Reports dyspnea on exertion Respiratory: Reports dyspnea on exertion Gastrointestinal: Reports no additional gastrointestinal complaints Reports system reviewed and no additional complaints, except as documented Psychiatric: Reports no additional psychiatric complaints Endocrine: Reports no additional endocrine complaints and Denies palpitations Physical Exam Vital Signs: Last Vital Signs Temp 97.2 F 04/18/21 08:00 Pulse 64 04/18/21 08:00 Resp 20 04/18/21 08:00 BP 128/60 04/18/21 08:00 Pulse Ox 93 04/18/21 08:00 Body Mass Index 32.8 Const General: cooperative, comfortable, no acute distress, alert and awake Nutritional Appearance: obese Orientation/consciousness: patient oriented x3 Neck Neck: Yes trachea midline, Yes supple and Yes no JVD Resp Effort & Inspection: normal respiratory effort Auscultation: crackles (Right greater than left) Cardio Jugular venous distension: no JVD Palpation: normal PMI Rate: regular rate Rhythm: regular rhythm Heart sounds: S1 normal heart sound present and S2 normal heart sound present Skin General skin exam: no rashes or lesions noted Neuro General: patient oriented x3 and no focal motor deficits Extrem General: Yes no clubbing, cyanosis or edema Results Labs and Meds Result diagrams: 04/18/21 04:11 04/18/21 04:11 Lab results: Laboratory Results - last 24 hr 04/17/21 04/18/21 04/18/21 10:45 04:11 04:11 WBC 5.6 RBC 4.27 Hgb 11.6 L Hct 36.7 L MCV 85.9 MCH 27.2 MCHC 31.6 RDW 15.9 Plt Count 115 L D MPV 12.9 H Absolute Nucleated RBC 0.000 Nucleated RBC % (auto) 0.0 Sodium 140 Potassium 3.9 Chloride 110 H Carbon Dioxide 23 Anion Gap 11 L BUN 17 H Creatinine 0.79 Estim Creat Clear Calc 60.4 Estimated GFR > 60 Random Glucose 83 Calcium 8.1 L B-Natriuretic Peptide Urine Color YELLOW Urine Appearance HAZY Urine pH 6.0 Ur Specific [place] 1.010 Urine Protein NEG Urine Glucose (UA) NEG Urine Ketones NEG Urine Blood NEG Urine Nitrite NEG Ur Leukocyte Esterase 1+ H Urine RBC 0 Urine WBC 5-9 H Ur Squamous Epith Cells 1+ Urine Bacteria TRACE Granular Casts 0-2 Urine Mucus TRACE 04/18/21 04:11 WBC RBC Hgb Hct MCV MCH MCHC RDW Plt Count MPV Absolute Nucleated RBC Nucleated RBC % (auto) Sodium Potassium Chloride Carbon Dioxide Anion Gap BUN Creatinine Estim Creat Clear Calc Estimated GFR Random Glucose Calcium B-Natriuretic Peptide 752 H Urine Color Urine Appearance Urine pH Ur Specific [place] Urine Protein Urine Glucose (UA) Urine Ketones Urine Blood Urine Nitrite Ur Leukocyte Esterase Urine RBC Urine WBC Ur Squamous Epith Cells Urine Bacteria Granular Casts Urine Mucus Imaging Radiologist's impression: Impressions Chest X-Ray 04/17/21 11:55 IMPRESSION: Similar patchy bilateral airspace disease, nonspecific. Progress Note: A&P Assessment and plan (1) Atrial flutter: Status: Acute Assessment and Plan: Patient converted to sinus rhythm on amiodarone therapy. Continue amiodarone loading with 400 mg b.i.d. for 2 weeks. Follow up in the office in 2 weeks time. Continue full oral anticoagulation, currently on Xarelto. Hold off on atenolol. Low dose losartan to be started 25 mg daily. Continue to follow blood pressure closely. Discussed the management of atrial fibrillation/flutter with patient and patient's granddaughter at bedside with help of supervisor ride assembly. They understand the management well. (2) Congestive heart failure: Status: Acute Assessment and Plan: Hypoxia with finding suggestive elevated BNP and bilateral infiltrates on chest x-ray is most suggestive of heart failure. Clinically also appears to have bilateral rales. This could be due to rapid atrial fibrillation in the setting of underlying diastolic dysfunction. Gentle diuresis with Lasix 20 mg IV b.i.d.. Strict intake and output chart. Trend BMP and BNP tomorrow. Hopefully should lead to resolution for symptoms and no oxygen requirement. Will follow with you. Fall Risk Details Current Medications: Current Medications Generic Name Dose Route Start Last Admin Trade Name Freq PRN Reason Stop Dose Admin Acetaminophen 650 mg 04/15/21 12:38 04/17/21 22:38 Acetaminophen 325 Mg Tablet PO 650 mg Q6H PRN Administration Pain, Mild (Pain Scale 1-3) Hydrocodone Bitart/Acetaminophen 1 tab 04/16/21 18:49 04/18/21 07:21 Hydrocodone Bit/Acetam 5/325 Tablet PO 1 tab Q6H PRN Administration Pain, Moderate (Pain Scale 4-6 Amiodarone HCl 400 mg 04/18/21 09:00 04/18/21 08:26 Amiodarone Hcl 200 Mg Tablet PO Not Given BID RIAZ Atenolol 25 mg 04/16/21 09:00 04/18/21 07:22 Atenolol 25 Mg Tablet PO 25 mg DAILY RIAZ Administration Protocol Atorvastatin Calcium 40 mg 04/16/21 21:00 04/17/21 20:51 Atorvastatin Calcium 40 Mg Tablet PO 40 mg BEDTIME RIAZ Administration Folic Acid 1 mg 04/16/21 09:00 04/18/21 07:22 Folic Acid 1 Mg Tablet PO 1 mg DAILY RIAZ Administration Gabapentin 600 mg 04/15/21 21:00 04/18/21 07:23 Gabapentin 600 Mg Tablet PO 600 mg BID RIAZ Administration Piperacillin Sod/Tazobactam 50 mls @ 100 mls/hr 04/17/21 09:00 04/18/21 10:25 Sod 3.375 gm/ Sodium Chloride IV Infused Q6H RIAZ Infusion Vancomycin HCl 1,000 mg/ 270 mls @ 270 mls/hr 04/18/21 09:00 04/18/21 08:27 Sodium Chloride IV Infused Q24H RIAZ Infusion Omeprazole 20 mg 04/16/21 09:00 04/18/21 07:22 Omeprazole 20 Mg Capsule.Dr PO 20 mg DAILY RIAZ Administration Ondansetron HCl 4 mg 04/15/21 12:38 Ondansetron Hcl 4 Mg/2 Ml Vial IVPUSH Q8H PRN Nausea and Vomiting Pharmacy Consult 1 each 04/15/21 11:24 Consult Rx Perform Med Rec MISCELLANE ONCE PRN Consult order Pharmacy Consult 1 each 04/17/21 08:23 Consult Rx Vancomycin Dosing MISCELLANE DAILY PRN Consult order Rivaroxaban 20 mg 04/16/21 09:00 04/18/21 07:22 Rivaroxaban 20 Mg Tablet PO 20 mg DAILY RIAZ Administration Sodium Chloride 3 ml 04/15/21 16:00 04/18/21 07:22 0.9 % Sodium Chloride Flush 3 Ml Syringe IVFLUSH 3 ml QSHIFT RIAZ Administration Time Spent With Patient Time: Total time spent is greater than 50% in coordination of care (as documented) at patient's floor/unit and/or counseling patient: Time with patient: 25 - 35 minutes Procedures Date of Service Date of Service: 04/18/21
--- NOTE | 2021-04-18 12:43 | P.PNIM_ITS ---
Subjective Subjective Date of Service: 04/18/21 Interval History: Denies palpitation, no acute issues overnight converted to normal sinus rhythm yesterday. denies sob, no PND, no orthopnea. Gen no fevers, no chills [employer] no portillo, no dizziness GI no nausea, no vomiting Skin no rash, no itching Physical Exam Vital Signs: Vital Signs: Last Vital Signs Temp 97.2 F 04/18/21 11:26 Pulse 69 04/18/21 11:26 Resp 20 04/18/21 11:26 BP 121/63 04/18/21 11:26 Pulse Ox 96 04/18/21 11:26 Body Mass Index 32.8 Gen: awake alert no distress Neck: supple,no jvd Lungs: No respiratory distress,bibasilar rales Heart: regular tachycardia, no murmurs noted Abd: soft, non-tender, non-distended,bowl sound + Ext: no edema Skin: warm/well-perfused Neuro: alert and oriented x3, no focal findings Psych: appropriate affect Objective Data Current Medications Generic Name Dose Route Start Last Admin Trade Name Francisq PRN Reason Stop Dose Admin Acetaminophen 650 mg 04/15/21 12:38 04/17/21 22:38 Acetaminophen 325 Mg Tablet PO 650 mg Q6H PRN Administration Pain, Mild (Pain Scale 1-3) Hydrocodone Bitart/Acetaminophen 1 tab 04/16/21 18:49 04/18/21 07:21 Hydrocodone Bit/Acetam 5/325 Tablet PO 1 tab Q6H PRN Administration Pain, Moderate (Pain Scale 4-6 Amiodarone HCl 400 mg 04/18/21 09:00 04/18/21 08:26 Amiodarone Hcl 200 Mg Tablet PO Not Given BID RIAZ Atenolol 25 mg 04/16/21 09:00 04/18/21 07:22 Atenolol 25 Mg Tablet PO 25 mg DAILY RIAZ Administration Protocol Atorvastatin Calcium 40 mg 04/16/21 21:00 04/17/21 20:51 Atorvastatin Calcium 40 Mg Tablet PO 40 mg BEDTIME RIAZ Administration Folic Acid 1 mg 04/16/21 09:00 04/18/21 07:22 Folic Acid 1 Mg Tablet PO 1 mg DAILY RIAZ Administration Furosemide 20 mg 04/18/21 18:00 Furosemide 20 Mg/2 Ml Vial IVPUSH BID@0900,1800 RIAZ Protocol Gabapentin 600 mg 04/15/21 21:00 04/18/21 07:23 Gabapentin 600 Mg Tablet PO 600 mg BID RIAZ Administration Piperacillin Sod/Tazobactam 50 mls @ 100 mls/hr 04/17/21 09:00 04/18/21 10:25 Sod 3.375 gm/ Sodium Chloride IV Infused Q6H RIAZ Infusion Vancomycin HCl 1,000 mg/ 270 mls @ 270 mls/hr 04/18/21 09:00 04/18/21 08:27 Sodium Chloride IV Infused Q24H RIAZ Infusion Omeprazole 20 mg 04/16/21 09:00 04/18/21 07:22 Omeprazole 20 Mg Capsule.Dr PO 20 mg DAILY RIAZ Administration Ondansetron HCl 4 mg 04/15/21 12:38 Ondansetron Hcl 4 Mg/2 Ml Vial IVPUSH Q8H PRN Nausea and Vomiting Pharmacy Consult 1 each 04/15/21 11:24 Consult Rx Perform Med Rec MISCELLANE ONCE PRN Consult order Pharmacy Consult 1 each 04/17/21 08:23 Consult Rx Vancomycin Dosing MISCELLANE DAILY PRN Consult order Rivaroxaban 20 mg 04/16/21 09:00 04/18/21 07:22 Rivaroxaban 20 Mg Tablet PO 20 mg DAILY RIAZ Administration Sodium Chloride 3 ml 04/15/21 16:00 04/18/21 07:22 0.9 % Sodium Chloride Flush 3 Ml Syringe IVFLUSH 3 ml QSHIFT RIAZ Administration Labs CBC & Chem 7: 04/18/21 04:11 04/18/21 04:11 Microbiology Microbiology Results: Microbiology 04/17/21 06:31 Blood - Venous Blood Culture - Preliminary No growth after 24 hours. 04/17/21 06:31 Blood - Venous Blood Culture - Preliminary No growth after 24 hours. Assessment and Plan (1) Atrial flutter: Status: Acute (2) Congestive heart failure: Status: Acute (3) Seropositive rheumatoid arthritis: Status: Acute Assessment and Plan: 66yo F with pAF on rivaroxaban, HFpEF [grade 1 diastolic dysfunction Dec 2020], LOW on CPAP presented with 2 wk of LEDESMA + leg swelling, admitted for CHF exacerbation now with atrial flutter and hypotension and fever # atrial flutter/RVR - patient converted to NSR,will obtain ekg seen by cardiology they stopped Multaq and started amiodarone PO.continue anticoagulation with rivaroxaban.hold metoprolol # hypotension, resolved with fluids # fever - resolved no recurrence cxr showed no consolidation, and blood culture neg. will dc iv vanco and zosyn follow clinical course . # acute/chronic HFpEF - was originally admitted for diuresis ,later diuretics held due to rising creat and hypotension ,appears hypervolemic today with rales,elevated bnp likley due to iv fluids will treat with iv lasix and follow bnp,bmp and I/OS # acute/chronic hypoxic resp failure - wean O2 as tolerated # LOW - continue CPAP at night # RA - on adalimumab- f/u with Rheum as outpt and discuss whether this TNF-alpha inhibitor could be contributing to her CHF # VTE ppx - on rivaroxaban
[2021-04-18] MEDS: Furosemide 20 MG/2 ML VIAL IVPUSH (19:13)
[2021-04-18] MEDS: Acetaminophen 325 MG TABLET 650 MG PO (19:18)
[2021-04-18] MEDS: Atorvastatin Calcium 40 MG TABLET PO (20:23)
[2021-04-19 03:52] VITALS: BP 135/68; PULSE 72; RESP 18; TEMP 35.6; O2SAT 93
[2021-04-19] MEDS: HYDROcodone Bit/Acetam 5/325 TABLET 1 TAB PO ×2 (04:02→11:44)
[2021-04-19 07:03] VITALS: BP 126/60; PULSE 70; RESP 18; TEMP 36.1; O2SAT 94
[2021-04-19 07:03] LABS: Anion Gap 10 (12-20); Blood Urea Nitrogen 14 mg/dL (9-16); Calcium 8.7 mg/dL (8.4-10.2); Carbon Dioxide 26 mmol/L (22-29); Chloride 108 mmol/L (96-108); Creatinine Clr Calc Pharmacy 72.3; Estimated Glomerular Filt Rate > 60; Glucose Random 84 mg/dL (60-115); Potassium 3.9 mmol/L (3.3-5.1); Sodium 140 mmol/L (135-145)
[2021-04-19 07:06] LABS: B Type Natriuretic Peptide 177 pg/mL (<100)
[2021-04-19] MEDS: 0.9 % Sodium Chloride Flush 3 ML SYRINGE IVFLUSH (07:28)
[2021-04-19] MEDS: Acetaminophen 325 MG TABLET 650 MG PO (08:05)
[2021-04-19] MEDS: Furosemide 20 MG/2 ML VIAL IVPUSH (08:06)
[2021-04-19] MEDS: Omeprazole 20 MG CAPSULE.DR PO (08:07)
[2021-04-19] MEDS: atenoloL 25 MG TABLET PO (08:07)
[2021-04-19] MEDS: Gabapentin 600 MG TABLET PO (08:07)
[2021-04-19] MEDS: Folic Acid 1 MG TABLET PO (08:08)
[2021-04-19 08:09] VITALS: PULSE 70
[2021-04-19] MEDS: Amiodarone HCL 200 MG TABLET 400 MG PO (08:09)
[2021-04-19] MEDS: Rivaroxaban 20 MG TABLET PO (08:10)
--- NOTE | 2021-04-19 09:12 | PM.PNCARD ---
Subjective Subjective Date of Service: 04/19/21 Principal diagnosis: AF, CHF Interval history: Patient is feeling better today. Remains in sinus rhythm. Says her shortness of breath is improved. Her BNP is significantly improved today. She still requiring oxygen therapy Review of Systems Constitutional: Reports no additional constitutional complaints Cardiovascular: Reports no additional cardiovascular complaints, Denies chest pain, Denies lightheadedness, Denies Loss of Consciousness, Denies palpitations and Reports dyspnea on exertion Respiratory: Reports no additional respiratory complaints and Reports dyspnea on exertion Gastrointestinal: Reports no additional gastrointestinal complaints Genitourinary: Reports no additional female genitourinary complaints Reports system reviewed and no additional complaints, except as documented Psychiatric: Reports no additional psychiatric complaints Endocrine: Reports no additional endocrine complaints and Denies palpitations Hematologic/Lymphatic: Reports no additional hematologic/lymphatic complaints Physical Exam Vital Signs: Last Vital Signs Temp 97 F 04/19/21 07:03 Pulse 70 04/19/21 08:09 Resp 18 04/19/21 07:03 BP 126/60 04/19/21 07:03 Pulse Ox 94 04/19/21 07:03 Body Mass Index 32.8 Const General: cooperative, comfortable, no acute distress, alert and awake Nutritional Appearance: obese Orientation/consciousness: patient oriented x3 Limitations: no limitations Neck Neck: Yes trachea midline, Yes supple and Yes no JVD Resp Effort & Inspection: normal respiratory effort Auscultation: crackles (Coarse at right base) Cardio Jugular venous distension: no JVD Palpation: normal PMI Rate: regular rate Rhythm: regular rhythm Heart sounds: S1 normal heart sound present and S2 normal heart sound present GI Auscultation: normal bowel sounds Skin General skin exam: no rashes or lesions noted Neuro General: patient oriented x3 and no focal motor deficits Extrem General: Yes no clubbing, cyanosis or edema Psych Appearance: grossly normal Results Labs and Meds Result diagrams: 04/18/21 04:11 04/19/21 06:03 Lab results: Laboratory Results - last 24 hr 04/19/21 04/19/21 06:03 06:03 Sodium 140 Potassium 3.9 Chloride 108 Carbon Dioxide 26 Anion Gap 10 L BUN 14 Creatinine 0.66 Estim Creat Clear Calc 72.3 Estimated GFR > 60 Random Glucose 84 Calcium 8.7 D B-Natriuretic Peptide 177 H Progress Note: A&P Assessment and plan (1) Congestive heart failure: Status: Acute Assessment and Plan: Congestive heart failure which has improved with IV diuresis. BNP is significantly improved. Clinically still has coarse crackles at right base which appear to be secondary to atelectasis. Provide incentive spirometry now and at home and education regarding the same. Start on Lasix 20 mg daily. CHF education to be provided. Daily weight monitoring and avoidance of salt loading. Patient's oxygenation is adequate at room air can be discharged later today. Set up for outpatient follow-up. CHF most likely exacerbated by atrial fibrillation/flutter with rapid ventricular response and will pursue aggressively rhythm control approach. (2) Atrial flutter: Status: Acute Assessment and Plan: Atrial flutter, converted on amiodarone therapy. Continue amiodarone loading 400 mg b.i.d. for 2 weeks. Continue low-dose losartan therapy for blood pressure control. Advised to call me with recurrent rapid heart rate. Follow up in the clinic in 2 weeks time. Continue full oral anticoagulation, currently on Xarelto 20 mg daily. Will follow as outpatient in 2 weeks time. Thank you for allowing me to partake in her care Fall Risk Details Current Medications: Current Medications Generic Name Dose Route Start Last Admin Trade Name Freq PRN Reason Stop Dose Admin Acetaminophen 650 mg 04/15/21 12:38 04/19/21 08:05 Acetaminophen 325 Mg Tablet PO 650 mg Q6H PRN Administration Pain, Mild (Pain Scale 1-3) Hydrocodone Bitart/Acetaminophen 1 tab 04/16/21 18:49 04/19/21 04:02 Hydrocodone Bit/Acetam 5/325 Tablet PO 1 tab Q6H PRN Administration Pain, Moderate (Pain Scale 4-6 Amiodarone HCl 400 mg 04/18/21 09:00 04/19/21 08:09 Amiodarone Hcl 200 Mg Tablet PO 400 mg BID RIAZ Administration Atenolol 25 mg 04/16/21 09:00 04/19/21 08:07 Atenolol 25 Mg Tablet PO 25 mg DAILY RIAZ Administration Protocol Atorvastatin Calcium 40 mg 04/16/21 21:00 04/18/21 20:23 Atorvastatin Calcium 40 Mg Tablet PO 40 mg BEDTIME RIAZ Administration Folic Acid 1 mg 04/16/21 09:00 04/19/21 08:08 Folic Acid 1 Mg Tablet PO 1 mg DAILY RIAZ Administration Furosemide 20 mg 04/18/21 18:00 04/19/21 08:06 Furosemide 20 Mg/2 Ml Vial IVPUSH 20 mg BID@0900,1800 RIAZ Administration Protocol Gabapentin 600 mg 04/15/21 21:00 04/19/21 08:07 Gabapentin 600 Mg Tablet PO 600 mg BID RIAZ Administration Omeprazole 20 mg 04/16/21 09:00 04/19/21 08:07 Omeprazole 20 Mg Capsule.Dr PO 20 mg DAILY RIAZ Administration Ondansetron HCl 4 mg 04/15/21 12:38 Ondansetron Hcl 4 Mg/2 Ml Vial IVPUSH Q8H PRN Nausea and Vomiting Pharmacy Consult 1 each 04/15/21 11:24 Consult Rx Perform Med Rec MISCELLANE ONCE PRN Consult order Pharmacy Consult 1 each 04/17/21 08:23 Consult Rx Vancomycin Dosing MISCELLANE DAILY PRN Consult order Rivaroxaban 20 mg 04/16/21 09:00 04/19/21 08:10 Rivaroxaban 20 Mg Tablet PO 20 mg DAILY RIAZ Administration Sodium Chloride 3 ml 04/15/21 16:00 04/19/21 07:28 0.9 % Sodium Chloride Flush 3 Ml Syringe IVFLUSH 3 ml QSHIFT RIAZ Administration Time Spent With Patient Time: Total time spent is greater than 50% in coordination of care (as documented) at patient's floor/unit and/or counseling patient: Time with patient: 25 - 35 minutes Procedures Date of Service Date of Service: 04/19/21
[2021-04-19 11:13] VITALS: BP 102/62; PULSE 62; RESP 17; TEMP 36.6; O2SAT 92
[2021-04-19 13:37] VITALS: O2SAT 89
[2021-04-19 15:12] VITALS: BP 148/73; PULSE 64; RESP 20; TEMP 36.2; O2SAT 92
--- NOTE | 2021-04-19 15:37 | PM.DS ---
DS: Providers Provider Date of Service: 04/19/21 Date of admission: 04/15/21 12:38 Primary care physician: Dafne Pollard MD Consults: 04/17/21 11:29 Consult to Cardiology Routine Consulting Provider: Brian Pacheco Reason for consultation: new onset AF DS: Diagnosis Discharge Diagnosis (1) Congestive heart failure: Status: Acute (2) Atrial flutter: Status: Acute DS: Medications Discharge Medications Home Medications: Home Medications Medication Instructions Recorded Confirmed gabapentin 600 mg tablet 600 mg PO BID 08/25/20 04/15/21 atorvastatin 40 mg PO BEDTIME 04/15/21 04/15/21 Previous Rx's Medication Instructions Recorded adalimumab 40 mg/0.8 mL See Rx Instructions SUBCUT 09/18/20 subcutaneous pen kit .COMPLEX #1 ea rivaroxaban 20 mg tablet 20 mg PO DAILY #90 tab 12/11/20 folic acid 1 mg tablet 1 mg PO DAILY #30 tab 01/07/21 methotrexate sodium 2.5 mg tablet See Rx Instructions PO QWEEK #24 04/12/21 tab amiodarone 200 mg PO BID #60 tab 04/19/21 furosemide 20 mg PO DAILY #30 tab 04/19/21 losartan 25 mg PO DAILY #30 tab 04/19/21 DS: Summary Hospital Course Hospital Course: CHIEF COMPLAINT: Bilateral knee swelling and shortness of breath. HISTORY OF PRESENT ILLNESS: This is a 66-year-old female patient with multiple medical issues including history of diastolic dysfunction, essential hypertension, prior CVA on CPAP at night and on Xarelto for paroxysmal atrial fibrillation, presented to [facility] due to symptoms of bilateral knee swelling of 3 weeks duration, as well as shortness of breath with exertion of 2 weeks duration without associated chest pain. No PND or orthopnea. The patient has also been feeling fatigue and tiredness. In the emergency room, workup showed an elevated BNP of 351, troponin of 16.5. Chest x-ray showed new bilateral mid lung and lower lobe interstitial pneumonitis/edema. The patient denies any symptoms of fever or chills. No cough or sputum production. Denies any sick contacts. Lives alone at home. Status post COVID vaccine with a normal WBC count. Therefore, the patient was diagnosed to have congestive heart failure. There was no evidence of infection. The patient received 1 dose of IV Lasix and now being admitted to [facility] for continued monitoring and treatment. PAST MEDICAL HISTORY: 1. History of diastolic dysfunction. 2. History of essential hypertension. 3. History of GERD. 4. History of stroke with right hemiplegia. 5. History of obstructive sleep apnea, on CPAP. 6. History of paroxysmal atrial fibrillation. 7. History of hypercholesterolemia. 8. History of rheumatoid arthritis. 9. History of prior foot and shoulder surgery. Hospital course 66yo F with pAF on rivaroxaban, HFpEF [grade 1 diastolic dysfunction Dec 2020], LOW on CPAP presented with 2 wk of LEDESMA + leg swelling, admitted for CHF exacerbation, patient treated with IV Lasix with good response, subsequently developed atrial flutter with rapid ventricular rate, hypotension and fever, therefore Lasix was discontinued, patient seen by absorption and adsorption engineer Multaq was discontinued and patient started on amiodarone, anticoagulation with Xarelto was continued, patient responded to above treatment converted into normal sinus rhythm and remained in normal sinus rhythm, due to hypotension atenolol has been discontinued and dose of losartan reduced to 25 mg daily, patient was noted to have acute hypoxic respiratory failure likely due to heart failure and atelectasis patient had a home O2 eval she qualifies for 1 L of oxygen that is being arranged by respiratory therapy, patient had be fever with no recurrence chest x-ray showed no consolidation and blood cultures negative therefore antibiotics were discontinued. Patient has been started on Lasix 20 mg by mouth daily, In regard to obstructive sleep apnea she has been recommended to continue CPAP at night. Discharge diagnosis atrial flutter/RVR hypotension, resolved with fluids acute/chronic HFpEF acute/chronic hypoxic resp failure LOW continue CPAP at night RA on adalimumab recommend to f/u with Rheum as outpt and discuss whether this TNF-alpha inhibitor could be contributing to CHF. Time Spent with Patient Time attestation: Total time spent providing and/or coordinating discharge services: Discharge coordination time: Greater than 30 minutes Quality: Stroke Does the patient have a stroke diagnosis?: No Physical Exam Vital Signs: Vital Signs: Last Vital Signs Temp 97.1 F 04/19/21 15:12 Pulse 64 04/19/21 15:12 Resp 20 04/19/21 15:12 BP 148/73 H 04/19/21 15:12 Pulse Ox 92 04/19/21 15:12 Body Mass Index 32.8 Gen: awake alert no distress Neck: supple,no jvd Lungs: No respiratory distress,no rales Heart: regular tachycardia, no murmurs noted Abd: soft, non-tender, non-distended,bowl sound + Ext: no edema Skin: warm/well-perfused Neuro: alert and oriented x3, no focal findings Psych: appropriate affect DS: Data Data Completed and Pending Labs on day of discharge: Laboratory Results - last 24 hr 04/19/21 04/19/21 06:03 06:03 Sodium 140 Potassium 3.9 Chloride 108 Carbon Dioxide 26 Anion Gap 10 L BUN 14 Creatinine 0.66 Estim Creat Clear Calc 72.3 Estimated GFR > 60 Random Glucose 84 Calcium 8.7 D B-Natriuretic Peptide 177 H Preliminary micro results at discharge 04/17/21 06:31 Blood Culture - Preliminary Blood - Venous No growth after 48 hours. 04/17/21 06:31 Blood Culture - Preliminary Blood - Venous No growth after 48 hours. Discharge Plan Discharge Patient Disposition: Home Health Service Discharge Diagnosis: Atrial flutter with RVR Acute on chronic diastolic congestive heart failure Acute on chronic hypoxic respiratory failure Obstructive sleep apnea Rheumatoid arthritis Hypotension Referrals: Dafne Betancourt MD [Primary Care Provider] - 1 Week Discharge Medications: New losartan 25 mg Tablet 25 mg PO DAILY Qty: 30 RF: 0 furosemide 20 mg Tablet 20 mg PO DAILY Qty: 30 RF: 0 amiodarone 200 mg tablet 200 mg PO BID Qty: 60 RF: 0 Continued Humira Pen 40 mg/0.8 mL pen injector kit See Rx Instructions subcut .COMPLEX Qty: 1 RF: 4 rivaroxaban [Xarelto] 20 mg tablet 20 mg PO DAILY Qty: 90 RF: 2 folic acid 1 mg tablet 1 mg PO DAILY Qty: 30 RF: 5 methotrexate sodium 2.5 mg tablet See Rx Instructions PO QWEEK Qty: 24 RF: 3 atorvastatin 40 mg tablet 40 mg PO BEDTIME RF: 0 gabapentin 600 mg tablet 600 mg PO BID RF: 0 Discontinued Multaq 400 mg tablet 400 mg PO BID 90 Days Qty: 180 RF: 1 losartan 50 mg tablet 50 mg PO DAILY Qty: 90 RF: 3 atenolol 25 mg tablet 25 mg PO DAILY Qty: 30 RF: 5 Discharge Orders: Discharge Order (Routine); Ordered 04/19/21 Ordered By: Mike Storm Diet: low fat, low cholesterol and low salt diet Activity on Discharge: As tolerated Stand Alone Forms: Patient Portal Discharge page Care Plan Goals: diagnosed to have congestive heart failure and atrial flutter, take amiodarone 2 tablets of 200 mg each twice daily for 12 days followed by 200 mg 1 tablet twice daily, follow low-salt diet, take Lasix 20 mg once daily and follow-up with Cardiology You also noted to have low oxygen therefore you need 1 L of oxygen with activity and rest Health Concerns: Take all medications as prescribed, stop Multaq, atenolol and dose of losartan reduced to 25 mg Plan of Treatment: Outpatient follow-up with primary care physician and absorption and adsorption engineer Dr. Montoya in 2 weeks Assessment: As above
--- NOTE | 2021-04-19 15:44 | P.F2F_ITS ---
Service Date Service Date: 04/19/21 Encounter Date of encounter: 04/19/21 Reasons for Services Signs and symptoms assessed: Diastolic congestive heart failure with shortness of breath and atrial flutter, need VNA for medication compliance Reason for retirement: medication management, medication treatment and teach disease management Homebound: Leaving the home is medically contraindicated at this time without the asist of a device and/or another person due th the listed conditions above and below. Certification: Based on the above findings, I certify that this patient is confined to the home and needs intermittent retirement care, physical therapy and/or speech therapy, or continues to need occupational therapy. The patient is under my care, and I have initiated the establishment of the plan of care. The patient will be followed by a physician who will periodically review the plan of care.
--- NOTE | 2021-04-19 15:59 | MHC.CM.PN ---
pt dcd home today with formerly [facility] tita notified of pts dc family to transport home
== END 2021-04-19 16:07 | disposition home health service (06) | DRG 291 ==
LOC: HO.ED 11:29 → HO.EDOVER 13:04 → HO.IMC 13:51
PROVIDERS: Family Medicine; Internal Medicine; Admitting Provider Hospitalist; Emergency Provider Emergency Medicine Emergency Medical Services; PCP Internal Medicine; Visit Provider Hospitalist
DX: I11.0 Hypertensive heart disease with heart failure (principal); J96.21 Acute and chronic respiratory failure with hypoxia; I48.92 Unspecified atrial flutter; I69.951 Hemiplegia and hemiparesis following unspecified cerebrovascular disease affecting right dominant side; N17.9 Acute kidney failure, unspecified; J98.11 Atelectasis; K21.9 Gastro-esophageal reflux disease without esophagitis; I50.43 Acute on chronic combined systolic (congestive) and diastolic (congestive) heart failure; I48.0 Paroxysmal atrial fibrillation; E78.00 Pure hypercholesterolemia, unspecified; G47.33 Obstructive sleep apnea (adult) (pediatric); R00.0 Tachycardia, unspecified; J84.89 Other specified interstitial pulmonary diseases; I95.9 Hypotension, unspecified; M06.9 Rheumatoid arthritis, unspecified; Z20.822 Contact with and (suspected) exposure to COVID-19; Z87.891 Personal history of nicotine dependence; Z79.899 Other long term (current) drug therapy
CPT/HCPCS: 0241U; 36415; 71045; 80048; 81001; 81003; 83605; 83735; 83880; 84145; 84443; 84484; 85025; 85027; 87040; 93005; 94660; 96374; 99285; J1940; J2543; J3370

== ENCOUNTER 2021-04-21 14:25 | Outpatient (REF) | payer MEDICARE, MEDICAID, SELFPAY ==
--- NOTE | ~2021-04-21 | XR_ITS ---
EXAMINATION: XR knee LT 3V, XR knee RT 3V CLINICAL INFORMATION: Reason for Exam M06.9 - Rheumatoid arthritis, unspecified COMPARISON: None available at the time of this dictation. TECHNIQUE: frontal, lateral, tunnel and patella sunrise views FINDINGS: BONES: No fracture or dislocation is present. JOINTS: Narrowing of joint spaces and developed osteophytes from the edges of articular surfaces suggest degenerative osteoarthritis. SOFT TISSUE: Normal XR/XR knee RT 3V IMPRESSION: Mild bilateral degenerative osteoarthritis.
--- NOTE | ~2021-04-21 | XR_ITS ---
EXAMINATION: XR knee LT 3V, XR knee RT 3V CLINICAL INFORMATION: Reason for Exam M06.9 - Rheumatoid arthritis, unspecified COMPARISON: None available at the time of this dictation. TECHNIQUE: frontal, lateral, tunnel and patella sunrise views FINDINGS: BONES: No fracture or dislocation is present. JOINTS: Narrowing of joint spaces and developed osteophytes from the edges of articular surfaces suggest degenerative osteoarthritis. SOFT TISSUE: Normal XR/XR knee LT 3V IMPRESSION: Mild bilateral degenerative osteoarthritis.
== END 2021-04-21 14:26 | disposition home or self-care (01) ==
LOC: HO.XRAY 14:25
PROVIDERS: PCP Internal Medicine; Visit Provider Student in an Organized Health Care Education/Training Program
DX: M05.9 Rheumatoid arthritis with rheumatoid factor, unspecified (principal); Z79.899 Other long term (current) drug therapy
CPT/HCPCS: 73562; 99212

== ENCOUNTER → 2021-05-04 12:25 | Outpatient (BNVA) | payer MEDICARE, MEDICAID, SELFPAY | PROVIDERS: PCP Internal Medicine; Referring Provider Internal Medicine; Visit Provider Nurse Practitioner Family | DX: I11.0 Hypertensive heart disease with heart failure (principal); I50.30 Unspecified diastolic (congestive) heart failure; I48.0 Paroxysmal atrial fibrillation; I44.1 Atrioventricular block, second degree; I51.89 Other ill-defined heart diseases; G47.33 Obstructive sleep apnea (adult) (pediatric); Z99.89 Dependence on other enabling machines and devices | CPT/HCPCS: 93005; 99212 ==

== ENCOUNTER 2021-05-13 11:02 | Outpatient (REF) | payer MEDICARE, MEDICAID, SELFPAY ==
--- NOTE | ~2021-05-13 | XR_ITS ---
EXAMINATION: XR CHEST CLINICAL INFORMATION: Hypoxemia COMPARISON: Previous chest x-rays most recent 04/17/2021 TECHNIQUE: 2 views of the chest were obtained. FINDINGS: The cardiac silhouette is upper normal in size but stable. There is pulmonary venous redistribution. There are increased perihilar markings and attenuation. This appears improved from previous chest x-rays April 15 and 04/17/2021. Differential would include improving pulmonary edema and pneumonia. There may be new subsegmental atelectasis in both upper lobes. There is no pleural effusion or pneumothorax. There are degenerative changes of the spine. There is a left shoulder replacement. XR/XR chest 2V IMPRESSION: Improving bilateral perihilar infiltrates. Differential would include improving pulmonary edema and pneumonia. Clinical correlation recommended.
== END 2021-05-13 11:03 | disposition home or self-care (01) ==
LOC: HO.XRAY 11:02
PROVIDERS: Absent Provider Internal Medicine; PCP Internal Medicine; Visit Provider Hospitalist
DX: J18.9 Pneumonia, unspecified organism (principal); R91.8 Other nonspecific abnormal finding of lung field; R09.02 Hypoxemia; G47.33 Obstructive sleep apnea (adult) (pediatric); M05.79 Rheumatoid arthritis with rheumatoid factor of multiple sites without organ or systems involvement; Z87.891 Personal history of nicotine dependence; Z79.899 Other long term (current) drug therapy; Z99.89 Dependence on other enabling machines and devices
CPT/HCPCS: 71046; 99212

== ENCOUNTER 2021-06-15 08:52 | Outpatient (REF) | payer MEDICARE, MEDICAID, SELFPAY ==
[2021-06-15 10:35] LABS: MANUAL DIFF FLAG NO
[2021-06-15 10:48] LABS: Basophils Absolute Auto 0.1 X10*3/uL (0.0-0.2); Basophils Percent Auto 0.6 % (0-2); Eosinophils Absolute Auto 0.1 X10*3/uL (0.0-0.4); Eosinophils Percent Auto 1.2 % (0-4); Hematocrit 42.1 % (37-47); Hemoglobin 12.8 g/dl (12.0-16.0); Imm Gran Abs Auto 0.07 X10*3/uL (0.00-0.03); Imm Gran Pct Auto 0.8 % (0.0-0.4); Lymphocytes Absolute Auto 1.5 X10*3/uL (1.2-4.9); Lymphocytes Percent Auto 17.1 % (20-40); Mean Corpuscular HGB Conc 30.4 g/dl (31.0-35.0); Mean Corpuscular Hemoglobin 27.5 pg (27.0-33.0); Mean Corpuscular Volume 90.3 fL (80-98); Monocytes Absolute Auto 0.7 X10*3/uL (0.1-1.2); Monocytes Percent Auto 8.5 % (2-11); Neutrophils Absolute Auto 6.1 X10*3/uL (2.0-8.3); Neutrophils Percent Auto 71.8 % (45-73); Platelet Count 149 X10*3/uL (160-400); Red Blood Count 4.66 X10*6/uL (4.20-5.50); Red Cell Distribution Width 17.9 % (11.0-16.0); White Blood Count 8.5 X10*3/uL (4.8-10.8)
[2021-06-15 11:40] LABS: Erythrocyte Sedimentation Rate 43 MM/HR (0-20)
[2021-06-16 20:41] LABS: Immunoglobulin E 13 kU/L (<OR=114)
[2021-06-20 19:31] LABS: Asperg fumigatus Precip Abs NEGATIVE (NEGATIVE); Micropoly faeni Abs NEGATIVE (NEGATIVE); Pigeon serum Abs NEGATIVE (NEGATIVE); Saccharo pora viridis Abs NEGATIVE (NEGATIVE); Thermo candidus Abs NEGATIVE (NEGATIVE); Thermoa vulgaris #1 NEGATIVE (NEGATIVE)
== END 2021-06-15 08:53 | disposition home or self-care (01) ==
LOC: HO.LAB 08:52
PROVIDERS: Absent Provider Student in an Organized Health Care Education/Training Program; PCP Internal Medicine; Visit Provider Hospitalist
DX: J18.9 Pneumonia, unspecified organism (principal); R91.8 Other nonspecific abnormal finding of lung field
CPT/HCPCS: 36415; 82785; 85025; 85652; 86331; 86606; 86609

== ENCOUNTER → 2021-06-17 09:49 | Outpatient (BNVA) | payer MEDICARE, MEDICAID, SELFPAY | PROVIDERS: PCP Internal Medicine; Visit Provider Nurse Practitioner Family | DX: M05.9 Rheumatoid arthritis with rheumatoid factor, unspecified (principal); Z79.899 Other long term (current) drug therapy | CPT/HCPCS: 99212 ==

== ENCOUNTER → 2021-07-06 08:46 | Outpatient (BNVA) | payer MEDICARE, MEDICAID, SELFPAY | PROVIDERS: PCP Internal Medicine; Referring Provider Internal Medicine; Visit Provider Internal Medicine Cardiovascular Disease | DX: I50.30 Unspecified diastolic (congestive) heart failure (principal); I48.0 Paroxysmal atrial fibrillation; R00.2 Palpitations; R42 Dizziness and giddiness | CPT/HCPCS: 93005; 99212 ==

== ENCOUNTER → 2021-07-11 11:19 | Outpatient (REF) | payer MEDICARE, MEDICAID, SELFPAY ==
--- NOTE | 2021-07-11 11:24 | HM_ITS ---
Total monitoring time 6 days and 23 hours. Underlying rhythm is sinus. Minimum heart rate 45/Min. Maximum 131/Min. Average 79/Min. No significant bradycardia. About 10%, rate greater than 100/Min. Approximately 1% of the time, rhythm was atrial fibrillation. Longest episode was 33 minutes. Fastest rate 170/Min. No pauses or AV blocks. Frequent supraventricular ectopy with a burden of about 2%. No patient events. MTDD
== END ==
LOC: HO.CARD 11:19
PROVIDERS: Visit Provider Internal Medicine Cardiovascular Disease
DX: R00.2 Palpitations (principal)
CPT/HCPCS: 93242

== ENCOUNTER → 2021-07-15 11:23 | Outpatient (BNVA) | payer MEDICARE, MEDICAID, SELFPAY | PROVIDERS: PCP Internal Medicine; Visit Provider Hospitalist | DX: J18.9 Pneumonia, unspecified organism (principal); R09.02 Hypoxemia; R40.0 Somnolence; G47.33 Obstructive sleep apnea (adult) (pediatric); I10 Essential (primary) hypertension; I48.0 Paroxysmal atrial fibrillation; M06.9 Rheumatoid arthritis, unspecified; Z87.891 Personal history of nicotine dependence; Z86.79 Personal history of other diseases of the circulatory system; Z99.89 Dependence on other enabling machines and devices; Z79.52 Long term (current) use of systemic steroids; Z79.899 Other long term (current) drug therapy | CPT/HCPCS: 99212 ==

== ENCOUNTER 2021-07-27 08:57 | Outpatient (REF) | payer MEDICARE, MEDICAID, SELFPAY ==
[2021-07-27 10:43] LABS: MANUAL DIFF FLAG NO
[2021-07-27 10:48] LABS: Basophils Absolute Auto 0.1 X10*3/uL (0.0-0.2); Basophils Percent Auto 0.5 % (0-2); Eosinophils Absolute Auto 0.1 X10*3/uL (0.0-0.4); Eosinophils Percent Auto 0.5 % (0-4); Hematocrit 42.6 % (37-47); Hemoglobin 13.2 g/dl (12.0-16.0); Imm Gran Abs Auto 0.08 X10*3/uL (0.00-0.03); Imm Gran Pct Auto 0.9 % (0.0-0.4); Lymphocytes Absolute Auto 1.2 X10*3/uL (1.2-4.9); Lymphocytes Percent Auto 12.9 % (20-40); Mean Corpuscular Volume 90.4 fL (80-98); Mean Platelet Volume 12.8 fL (9.4-12.3); Monocytes Absolute Auto 0.7 X10*3/uL (0.1-1.2); Monocytes Percent Auto 7.5 % (2-11); Neutrophils Absolute Auto 7.2 X10*3/uL (2.0-8.3); Neutrophils Percent Auto 77.7 % (45-73); Platelet Count 191 X10*3/uL (160-400); Red Blood Count 4.71 X10*6/uL (4.20-5.50); Red Cell Distribution Width 17.2 % (11.0-16.0); White Blood Count 9.3 X10*3/uL (4.8-10.8)
[2021-07-27 11:11] LABS: Alanine Aminotransferase 26 U/L (0-31); Albumin Level 3.8 g/dL (3.5-5.0); Alkaline Phosphatase 75 U/L (39-117); Anion Gap 14 (12-20); Aspartate Amino Transferase 25 U/L (5-31); Bilirubin Total 0.7 mg/dL (0.0-1.0); Blood Urea Nitrogen 18 mg/dL (9-16); Calcium 9.6 mg/dL (8.4-10.2); Carbon Dioxide 25 mmol/L (22-29); Chloride 108 mmol/L (96-108); Estimated Glomerular Filt Rate 59; Glucose Random 85 mg/dL (60-115); Potassium 4.7 mmol/L (3.3-5.1); Sodium 142 mmol/L (135-145); Total Protein 7.1 g/dL (6.5-8.0)
[2021-07-27 11:28] LABS: Erythrocyte Sedimentation Rate 44 MM/HR (0-20)
== END 2021-07-27 08:58 | disposition home or self-care (01) ==
LOC: HO.LAB 08:57
PROVIDERS: Absent Provider Student in an Organized Health Care Education/Training Program; PCP Internal Medicine; Visit Provider Nurse Practitioner Family
DX: M05.9 Rheumatoid arthritis with rheumatoid factor, unspecified (principal); Z79.899 Other long term (current) drug therapy
CPT/HCPCS: 36415; 80053; 85025; 85652; 86140; 99212

== ENCOUNTER → 2021-09-07 09:25 | Outpatient (BNVA) | payer MEDICARE, MEDICAID, SELFPAY | PROVIDERS: PCP Internal Medicine; Referring Provider Internal Medicine; Visit Provider Internal Medicine Cardiovascular Disease | DX: I48.0 Paroxysmal atrial fibrillation (principal); I51.89 Other ill-defined heart diseases | CPT/HCPCS: 93005; 99212 ==

== ENCOUNTER 2021-09-12 08:50 | Outpatient (REF) | payer MEDICARE, MEDICAID, SELFPAY ==
--- NOTE | ~2021-09-12 | XR_ITS ---
EXAMINATION: XR CHEST CLINICAL INFORMATION: Pneumonia COMPARISON: 05/13/2021 TECHNIQUE: 2 views of the chest were obtained. FINDINGS: Left shoulder reverse arthroplasty. The lungs are well expanded. Bronchial wall thickening noted. Previous perihilar opacities have improved. Increased peripheral opacification at the left lower lung. No pleural effusion or pneumothorax. The cardiomediastinal silhouette is unchanged. XR/XR chest 2V IMPRESSION: Bronchial wall thickening noted which may be chronic. The previous perihilar opacities have improved. There is increased peripheral opacity at the left base which could represent atelectasis or pneumonia. Continued follow-up to resolution.
== END 2021-09-12 08:51 | disposition home or self-care (01) ==
LOC: HO.XRAY 08:50
PROVIDERS: PCP Internal Medicine; Visit Provider Hospitalist
DX: J18.9 Pneumonia, unspecified organism (principal)
CPT/HCPCS: 71046

== ENCOUNTER → 2021-09-15 10:39 | Outpatient (BNVA) | payer MEDICARE, MEDICAID, SELFPAY | PROVIDERS: PCP Internal Medicine; Visit Provider Hospitalist | DX: J18.9 Pneumonia, unspecified organism (principal) | CPT/HCPCS: 99212 ==

== ENCOUNTER 2021-09-15 11:20 | Outpatient (REF) | payer MEDICARE, MEDICAID, SELFPAY ==
[2021-09-15 12:30] LABS: Alanine Aminotransferase 28 U/L (0-31); Alkaline Phosphatase 77 U/L (39-117); Anion Gap 12 (12-20); Aspartate Amino Transferase 27 U/L (5-31); Bilirubin Total 0.4 mg/dL (0.0-1.0); Blood Urea Nitrogen 14 mg/dL (9-16); C Reactive Protein 0.46 mg/dL (< or = 0.50); Calcium 9.5 mg/dL (8.4-10.2); Carbon Dioxide 28 mmol/L (22-29); Chloride 108 mmol/L (96-108); Cholesterol 178 mg/dL; Estimated Glomerular Filt Rate > 60; Glucose Fasting 104 mg/dL (60-99); HDL Cholesterol 64 mg/dL; LDL Cholesterol Calculated 94 mg/dl; Potassium 5.1 mmol/L (3.3-5.1); Sodium 143 mmol/L (135-145); Total Protein 7.5 g/dL (6.5-8.0); Triglycerides 101 mg/dL
== END 2021-09-15 11:21 | disposition home or self-care (01) ==
LOC: HO.LAB 11:20
PROVIDERS: Nurse Practitioner Family; Visit Provider Nurse Practitioner Family
DX: Z13.1 Encounter for screening for diabetes mellitus (principal); M06.9 Rheumatoid arthritis, unspecified; E78.00 Pure hypercholesterolemia, unspecified
CPT/HCPCS: 36415; 80053; 80061; 86140; 99212

== ENCOUNTER → 2021-09-28 12:35 | Outpatient (REF) | payer MEDICARE, MEDICAID, SELFPAY | LOC: HO.SL 12:35 | PROVIDERS: PCP Internal Medicine; Visit Provider Hospitalist | DX: G47.33 Obstructive sleep apnea (adult) (pediatric) (principal); Z99.89 Dependence on other enabling machines and devices | CPT/HCPCS: 95806 ==

== ENCOUNTER 2021-10-19 10:47 | Outpatient (REF) | payer MEDICARE, MEDICAID, SELFPAY ==
--- NOTE | ~2021-10-19 | MM_ITS ---
EXAMINATION: BONE DENSITOMETRY CLINICAL INDICATION: Menopause. COMPARISON: This is the patient's baseline examination. TECHNIQUE: Using a [employer] DXA System (software version: 13.1) manufactured by [employer], dual-energy x-ray absorptiometry was performed of the lumbar spine and left hip. The images are of good technical quality. Summary results are attached. FINDINGS: AP SPINE L1-L4: BMD 0.725 g/cm2, Z-score -2.7, T-score -3.8, osteoporosis. LEFT FEMUR, NECK: BMD 0.642 g/cm2, Z-score -1.6, T-score -2.8, osteoporosis. LEFT FEMUR, TOTAL: BMD 0.813 g/cm2, Z-score -0.6, T-score -1.5, osteopenia. IDENTIFIED RISK FACTORS: Menopause, rheumatoid arthritis, history of fracture (adult), glucocorticoids (chronic), anticonvulsant. HISTORY OF FRACTURE: Shoulder. MEDICATIONS: None listed. MM/XR DEXA axial skeleton IMPRESSION: 1. DIAGNOSIS: Severe osteoporosis based on the lowest T-score value of -3.8 in the lumbar spine and history of fracture of shoulder applying World Health Organization criteria. 2. 10-YEAR FRACTURE RISK PREDICTION, FRAX: Major osteoporotic fracture (clinical spine, forearm, hip or shoulder) 28.0%. Hip fracture 9.2%. 3. Treatment Recommendations: NOF guidelines recommend consideration for treatment in postmenopausal women and men age 50 and older presenting with the following: -A hip or vertebral (clinical or morphometric) fracture. -T-score less than or equal to -2.5 at the femoral neck or spine after appropriate evaluation to exclude secondary causes. -Low bone mass at the hip or spine and a 10-year fracture probability by FRAX of greater than or equal to 3% for hip fracture or greater than or equal to 20% for major osteoporotic fracture based on the [place] adapted WHO algorithm. 4. Other Recommendations: All treatment decisions require clinical judgment and consideration of individual patient factors, including patient preferences, comorbidities, previous drug use, risk factors not captured in the FRAX model (e.g. frailty, falls, vitamin D deficiency, increased bone turnover, interval significant decline in bone density) and possible under or overestimation of fracture risk by FRAX. Additional medical evaluation for secondary cause of low bone mineral density may be appropriate. FUTURE SCAN RECOMMENDATION: People with diagnosed cases of osteoporosis or at high risk for fracture should have regular bone mineral density tests. For patients eligible for Medicare, routine testing is allowed once every 2 years. The testing frequency can be increased to one year for patients who have rapidly progressing disease, those who are receiving or discontinuing medical therapy to restore bone mass, or have additional risk factors.
== END 2021-10-19 10:48 | disposition home or self-care (01) ==
LOC: HO.MAMMO 10:47
PROVIDERS: PCP Internal Medicine; Visit Provider Nurse Practitioner Family
DX: Z13.820 Encounter for screening for osteoporosis (principal); M81.0 Age-related osteoporosis without current pathological fracture; Z78.0 Asymptomatic menopausal state; Z87.81 Personal history of (healed) traumatic fracture
CPT/HCPCS: 77080

== ENCOUNTER 2021-10-28 10:21 | Emergency (ER) | payer MEDICARE, MEDICAID, SELFPAY ==
--- NOTE | ~2021-10-28 | XR_ITS ---
EXAMINATION: XR HIP, LEFT CLINICAL INFORMATION: Fall COMPARISON: None TECHNIQUE: Two views of the left hip and one view of the pelvis. FINDINGS: Bone alignment is normal. No fracture or dislocation is seen. There is mild arthritis at both hip joints. There are soft tissue calcifications adjacent to the left greater trochanter. Bones of the pelvis are unremarkable. XR/XR hip LT w PEL1V IMPRESSION: No fracture or dislocation. Mild bilateral hip arthritis. Soft tissue calcifications adjacent to the left greater trochanter.
[2021-10-28 10:48] VITALS: BP 149/83; PULSE 62; RESP 18; TEMP 36.8; O2SAT 97; BMI 35.2
[2021-10-28] MEDS: Lidocaine 4 % Patch ADH..PATCH 1 PATCH TRANSDERMA (11:41)
[2021-10-28] MEDS: Cyclobenzaprine HCl 5 MG TABLET PO (11:41)
--- NOTE | 2021-10-28 13:02 | ED_ITS ---
HPI - Fall General Chief Complaint: Fall Stated Complaint: fall Time Seen by Provider: 10/28/21 11:24 Source: patient Mode of arrival: ambulatory History of Present Illness HPI Narrative: 66-year-old female with a past medical history of diastolic dysfunction, HTN, GERD, laryngitis, LOW on CPAP, hyperlipidemia, rheumatoid arthritis, presenting to the ED complaining of left buttock pain radiating down left lower extremity x1 week with mechanical fall this morning onto left buttock. Denies symptoms prior to fall. Denies head trauma or LOC. Has been ambulatory since incident with pain. Reports fall exacerbated symptoms. Denies numbness, tingling, weakness, urinary incontinence/retention complaint: fall Onset (ago): week(s) Related Data Home Medications Medication Instructions Recorded Confirmed atorvastatin 40 mg tablet 40 mg PO BEDTIME 04/15/21 09/14/21 gabapentin 600 mg tablet 600 mg PO TID 07/15/21 09/14/21 losartan 50 mg tablet 25 mg PO DAILY tab 09/07/21 09/14/21 omeprazole 20 mg capsule,delayed mg PO 09/15/21 release Previous Rx's Medication Instructions Recorded amiodarone 200 mg tablet 200 mg PO DAILY #90 tab 05/04/21 abatacept 125 mg/mL subcutaneous 125 mg SUBCUT QWEEK #4 ml 07/08/21 auto-injector ([employer]cia Click[employer]ect) prednisone 10 mg tablet 10 mg PO DAILY 30 Days #30 tab 07/15/21 atenolol 25 mg tablet 25 mg PO DAILY 30 Days #30 tab 07/19/21 folic acid 1 mg tablet 1 mg PO DAILY #30 tab 07/19/21 rivaroxaban 20 mg tablet (Xarelto) 20 mg PO DAILY #90 tab 07/23/21 methotrexate sodium 2.5 mg tablet See Rx Instructions PO QWEEK #24 08/11/21 tab acetaminophen 500 mg tablet 500 mg PO Q6H PRN #20 tab 10/28/21 (Tylenol Extra Strength) cyclobenzaprine 5 mg tablet 5 mg PO Q8H PRN 5 Days #14 tab 10/28/21 lidocaine 5 % topical patch 1 patch TOPICAL DAILY PRN #30 ea 10/28/21 (Lidoderm) MDD remove after 12 hours Allergies Allergy/AdvReac Type Severity Reaction Status Date / Time No Known Allergies Allergy Verified 10/28/21 10:48 [No Known Allergies*] Review of Systems Review of Systems: Constitutional: No Fever, No Chills ENT/Mouth: No Ear Pain, No Nasal Congestion, No sore throat, No Rhinorrhea, No Swallowing Difficulty Cardiovascular: No Chest Pain, No SOB Respiratory: No Cough Gastrointestinal: No Nausea, No Vomiting, No Diarrhea, No Constipation, No Abdominal pain Genitourinary:, No Dysuria, No Urinary Frequency, No Hematuria, No Urinary Incontinence/retention,No Flank Pain Musculoskeletal: + joint pain, No Myalgias, No Joint Swelling Skin: No Skin Lesions, No rash Neuro: No Weakness, No Numbness, No Paresthesias Yes all other systems are reviewed and are negative Neurologic: Denies Sensory deficit (Neuro) [facility] Past Medical History Attestation statement: The following information was validated with the patient. Medical History Breast pain, left Chronic anticoagulation Diastolic dysfunction Essential hypertension GERD (gastroesophageal reflux disease) History of stroke Hypoxia Laryngitis Obstructive sleep apnea on CPAP Paroxysmal atrial fibrillation Pneumonitis Pneumonitis Pure hypercholesterolemia Rheumatoid arthritis Right hemiplegia Seropositive rheumatoid arthritis Surgical History History of foot surgery History of shoulder surgery Family History Family History Father No problems noted. Mother No problems noted. Brother Stomach cancer Social History Social History Household Members: None Housing: House Do you presently have visiting nurse or other home services: No Alcohol intake: current Alcohol intake frequency: holidays/special occasions only Alcohol type: beer Patient Tobacco Use Status: Former Tobacco user Advance Directives: No Advance Directives Information Provided: Yes service: No Current occupational status: retired Physical Exam Vital Signs: Vital Signs: Last Vital Signs Temp 98.3 F 10/28/21 10:48 Pulse 62 10/28/21 10:48 Resp 18 10/28/21 10:48 BP 149/83 H 10/28/21 10:48 Pulse Ox 97 10/28/21 10:48 BMI result Body Mass Index 35.2 Const: General: cooperative, healthy appearing and no acute distress Orientation/consciousness: patient oriented x3 Limitations: no limitations HENMT: Head: Yes normal to inspection and Yes atraumatic Ears: hearing grossly normal bilaterally General nose exam: Normal external nose present Face and sinus: Yes normal facial exam Eyes: General: appearance normal, both eyes and all related structures EOM: EOMs intact bilaterally Neck: Other: No midline cervical spinous tenderness Neck: Yes normal visual inspection Resp: Effort & Inspection: normal respiratory effort and no respiratory distress Cardio: Rate: regular rate Peripheral pulses: dorsalis pedis present GI: Inspection: Yes normal to inspection Palpation (GI): Soft to palpation and nontender : General: Yes no CVA tenderness Back/Spine/Pelvis: Other: No midline thoracic/lumbar spinous tenderness/step- off or deformity. Left buttock tenderness to palpation Back: no CVA tenderness Skin: Rashes: no rashes Wounds: no wounds Neuro: Other: Strength intact throughout, no saddle anesthesia. Neurovascular intact distally. Ambulating with slight limping gait General: patient oriented x3, tone normal and moves all extremities Gait exam (Neuro): Normal gait present Motor exam (neuro): 5/5 motor strength present throughout and Normal motor muscle tone present throughout Sensory Exam: No Sensory deficit (Neuro) Extrem: Other: Left hip nontender. Full range of motion intact General: Yes normal to inspection Course Course Course Narrative: XR hip LT w PEL1V IMPRESSION: No fracture or dislocation. Mild bilateral hip arthritis. Soft tissue calcifications adjacent to the left greater trochanter >> results discussed with patient including needed follow-up with PCP MDM - Fall MDM Narrative Medical decision making narrative: 66-year-old female with a past medical history of diastolic dysfunction, HTN, GERD, laryngitis, LOW on CPAP, hyperlipidemia, rheumatoid arthritis, presenting to the ED complaining of left buttock pain radiating down left lower extremity x1 week with mechanical fall this morning onto left buttock. On exam vital signs stable, NAD/nontoxic- appearing, physical exam as above. Concern for sciatica vs MSK pain/strain Rule out fracture secondary to fall. Low concern for cauda quinine, cord compression, dislocation, or epidural abscess Plan: X-rays Medical Records Attestation: I reviewed the patient's medical records. Lab Data Attestation: I reviewed the patient's lab results. Discharge Plan Discharge Clinical Impression: Sciatica Qualifiers: Laterality: left Qualified Code(s): M54.32 - Sciatica, left side Patient Disposition: Home, Self-Care Instructions: Sciatica (ED) Additional Instructions: Your pain is likely musculoskeletal Flexeril is a muscle relaxer, take at night as it makes you drowsy, do not drive, drink alcohol, or operate machinery while taking it Lidoderm patches are numbing patches, apply to painful area In addition take Tylenol at home If symptoms persist or worsen, pain becomes unbearable, you developed urinary retention or incontinence, or weakness return to the ED Es probable que hanson dolor sea musculoesquel?jodi Flexeril es un relajante muscular, t?cagle por la noche ya que le produce somnolencia, no conduzca, no neida alcohol ni maneje maquinaria mientras lo nahum. Los parches de Lidoderm son parches que adormecen, se aplican al ?jermain dolorida Adem?s, tome Tylenol en casa. Si los s?ntomas persisten o empeoran, el dolor se vuelve insoportable, desarroll? retenci?n urinaria o incontinencia, o debilidad regrese al servicio de urgencias Prescriptions: New acetaminophen [Tylenol Extra Strength] 500 mg tablet 500 mg PO Q6H PRN (Reason: pain or fever) Qty: 20 RF: 0 lidocaine [Lidoderm] 5 % adhesive patch,medicated 1 patch topical DAILY MDD remove after 12 hours PRN (Reason: pain) Qty: 30 RF: 0 cyclobenzaprine 5 mg tablet 5 mg PO Q8H PRN (Reason: pain (scale score 7-10)) 5 Days Qty: 14 RF: 0 No Action O[employer]cia [employer] 125 mg/mL auto-injector 125 mg subcut QWEEK Qty: 4 RF: 3 folic acid 1 mg tablet 1 mg PO DAILY Qty: 30 RF: 5 atenolol 25 mg tablet 25 mg PO DAILY 30 Days Qty: 30 RF: 5 Xarelto 20 mg tablet 20 mg PO DAILY Qty: 90 RF: 2 methotrexate sodium 2.5 mg tablet See Rx Instructions PO QWEEK Qty: 24 RF: 3 atorvastatin 40 mg tablet 40 mg PO BEDTIME RF: 0 gabapentin 600 mg tablet 600 mg PO TID RF: 0 prednisone 10 mg tablet 10 mg PO DAILY 30 Days Qty: 30 RF: 6 amiodarone 200 mg tablet 200 mg PO DAILY Qty: 90 RF: 1 omeprazole 20 mg capsule,delayed release(DR/EC) PO RF: 0 losartan 50 mg tablet 25 mg PO DAILY RF: 0 Referrals: Dafne Betancourt MD [Primary Care Provider] - 2 days Interventions: ED Discharge Assessment Last Done: 10/28/21 13:17 Discharge Date/Time: 10/28/21 13:18 Print Language: Bengali
== END 2021-10-28 13:18 | disposition home or self-care (01) ==
PROVIDERS: Emergency Provider Emergency Medicine; PCP Internal Medicine
DX: M54.32 Sciatica, left side (principal); M25.552 Pain in left hip; I10 Essential (primary) hypertension; M79.605 Pain in left leg
CPT/HCPCS: 73502; 99283

== ENCOUNTER → 2021-10-31 10:07 | Outpatient (REF) | payer MEDICARE, MEDICAID, SELFPAY ==
[2021-10-31 10:22] LABS: MANUAL DIFF FLAG NO
[2021-10-31 10:58] LABS: Basophils Absolute Auto 0.1 X10*3/uL (0.0-0.2); Basophils Percent Auto 0.8 % (0-2); Eosinophils Absolute Auto 0.1 X10*3/uL (0.0-0.4); Eosinophils Percent Auto 0.9 % (0-4); Hemoglobin 13.2 g/dl (12.0-16.0); Imm Gran Pct Auto 1.1 % (0.0-0.4); Lymphocytes Absolute Auto 1.6 X10*3/uL (1.2-4.9); Lymphocytes Percent Auto 17.8 % (20-40); Mean Corpuscular HGB Conc 30.7 g/dl (31.0-35.0); Mean Corpuscular Hemoglobin 28.8 pg (27.0-33.0); Mean Corpuscular Volume 93.7 fL (80.0-98.0); Mean Platelet Volume 12.2 fL (9.4-12.3); Monocytes Absolute Auto 0.5 X10*3/uL (0.1-1.2); Monocytes Percent Auto 5.4 % (2-11); Neutrophils Absolute Auto 6.6 x10*3/uL (2.0-8.3); Platelet Count 217 X10*3/uL (160-400); Red Blood Count 4.59 X10*6/uL (4.20-5.50); Red Cell Distribution Width 15.9 % (11.0-16.0); White Blood Count 8.9 X10*3/uL (4.8-10.8)
[2021-10-31 11:47] LABS: Alanine Aminotransferase 34 U/L (0-31); Albumin Level 3.9 g/dL (3.5-5.0); Alkaline Phosphatase 73 U/L (39-117); Anion Gap 12 (12-20); Aspartate Amino Transferase 23 U/L (5-31); Bilirubin Total 0.4 mg/dL (0.0-1.0); Blood Urea Nitrogen 20 mg/dL (9-16); Calcium 9.6 mg/dL (8.4-10.2); Carbon Dioxide 26 mmol/L (22-29); Chloride 111 mmol/L (96-108); Estimated Glomerular Filt Rate > 60; Glucose Random 83 mg/dL (60-115); Potassium 4.6 mmol/L (3.3-5.1); Sodium 144 mmol/L (135-145); Total Protein 7.4 g/dL (6.5-8.0)
--- NOTE | 2021-10-31 11:51 | HM_ITS ---
Total monitoring time 6 days and 20 hours. Underlying rhythm is sinus. Average 71/Min. Atrial fibrillation burden 0.14%. Longest episode 13 minutes. Fastest 128/min. Occasional supraventricular ectopy but minimal burden. Rare ventricular ectopy with minimal burden. No patient events. MTDD
[2021-10-31 11:55] LABS: Erythrocyte Sedimentation Rate 23 MM/HR (0-20)
== END ==
LOC: HO.CARD 10:07
PROVIDERS: Nurse Practitioner Family; PCP Internal Medicine; Visit Provider Internal Medicine Cardiovascular Disease
DX: I48.0 Paroxysmal atrial fibrillation (principal); M06.9 Rheumatoid arthritis, unspecified; M54.30 Sciatica, unspecified side; Z79.899 Other long term (current) drug therapy
CPT/HCPCS: 36415; 80053; 85025; 85652; 86140; 93242; 99212

== ENCOUNTER 2021-11-17 10:18 | Outpatient (REF) | payer MEDICARE, MEDICAID, SELFPAY ==
--- NOTE | ~2021-11-17 | XR_ITS ---
EXAMINATION: XR CHEST CLINICAL INFORMATION: Interstitial pattern disease. COMPARISON: None. TECHNIQUE: 2 views of the chest were obtained. FINDINGS: The lungs are expanded with patchy opacity seen in the right upper lobe, bilateral middle lobes and left lower lobe suggestive of infiltrates. Heart size enlarged. Perivascular is normal. There is a left shoulder prosthesis. XR/XR chest 2V IMPRESSION: New increased patchy opacities in right upper lobe, left midlung and left lower lobe likely infiltrate or interstitial pneumonitis. No pleural effusion is suspected.
== END 2021-11-17 10:19 | disposition home or self-care (01) ==
LOC: HO.XRAY 10:18
PROVIDERS: PCP Internal Medicine; Visit Provider Hospitalist
DX: J18.9 Pneumonia, unspecified organism (principal); J84.9 Interstitial pulmonary disease, unspecified; G47.33 Obstructive sleep apnea (adult) (pediatric); M06.9 Rheumatoid arthritis, unspecified; M05.79 Rheumatoid arthritis with rheumatoid factor of multiple sites without organ or systems involvement; R63.5 Abnormal weight gain; Z79.52 Long term (current) use of systemic steroids; Z87.891 Personal history of nicotine dependence; Z79.899 Other long term (current) drug therapy; Z99.89 Dependence on other enabling machines and devices
CPT/HCPCS: 71046; 99212

== ENCOUNTER → 2021-11-29 09:18 | Outpatient (BNVA) | payer MEDICARE, MEDICAID, SELFPAY | PROVIDERS: PCP Internal Medicine; Referring Provider Internal Medicine; Visit Provider Internal Medicine Cardiovascular Disease | DX: I48.0 Paroxysmal atrial fibrillation (principal); I51.89 Other ill-defined heart diseases; Z79.01 Long term (current) use of anticoagulants; Z79.899 Other long term (current) drug therapy | CPT/HCPCS: 93005; 99212 ==

== ENCOUNTER → 2021-12-07 08:40 | Outpatient (REF) | payer MEDICARE, MEDICAID, SELFPAY | LOC: HO.CARD 08:40 | PROVIDERS: Visit Provider Internal Medicine Cardiovascular Disease | DX: Z13.89 Encounter for screening for other disorder (principal) | CPT/HCPCS: J0280; J2785 ==

== ENCOUNTER → 2021-12-21 09:30 | Outpatient (REF) | payer MEDICARE, MEDICAID, SELFPAY ==
--- NOTE | ~2021-12-21 | NM_ITS ---
Lexiscan Myocardial perfusion study Indication: Chest pain, assess for coronary disease and ischemia Technique: The patient was brought in for a Lexiscan perfusion study on 12/21/2021 and was injected 0.4 mg of Lexiscan intravenously. Within a minute of this injection 30 mCi of sestamibi was given intravenously. Images were obtained using the SPECT gamma camera interlaced with the gating device. Images were obtained in supine position. Resting perfusion study was performed on 12/26/2021. Patient was administered 30 mCi of sestamibi intravenously at rest. Images were then obtained in supine position. Total DLP 175mGy-cm. Images were processed with the software and compared side to side in short axis, horizontal long axis and vertical long axis views. Findings: Raw acquisition was reviewed. Arms by the patient's side. The stress perfusion study showed no significant perfusion abnormality. Both uncorrected as well as CT attenuation corrected images were reviewed. The gated study shows normal LV systolic function with calculated LVEF of > 70%. LV cavity is normal in size. The gated study shows normal wall thickening and contraction of segments. Resting study shows no significant perfusion abnormality. Gating at rest reveals normal wall motion with ejection fraction at > 70%. The findings are consistent with no reversible or fixed perfusion abnormality. NM/NM adonay perf SPECT rest & str Impression: 1. Myocardial perfusion imaging study shows normal myocardial perfusion. 2. Gated LVEF is > 70% during stress and rest. 3. Transient ischemic dilatation not present. EKG component of the test reported separately.
--- NOTE | 2021-12-21 09:39 | CA_ITS ---
Acquisition Time: 2021-12-21 09:41:23 Total Exercise Time: 00:02:00 Test Indications: chest pain Medications: See Office Note Protocol: LEXISCAN Max HR: 095 BPM 62% of Pred: 153 BPM Max BP: 176/076 mmHG Max Work Load: 1.0 METS Pharmacological stress test with Lexiscan injection, while sitting and kicking her legs, without anginal symptoms, without arrythmia, with normotensive response to injection, with nondiagnostic EKG for ischemia. Nuclear images pending. Test reviewed with Dr Pacheco. Referred By: Noah Montoya Overread By: KRISTY SUGGS
== END ==
LOC: HO.CARD 09:30
PROVIDERS: PCP Internal Medicine; Visit Provider Internal Medicine Cardiovascular Disease
DX: R07.89 Other chest pain (principal)
CPT/HCPCS: 78452; 93017; A9500; J0280; J2785

== ENCOUNTER 2022-02-01 10:08 | Outpatient (REF) | payer MEDICARE, MEDICAID, SELFPAY ==
[2022-02-01 12:04] LABS: MANUAL DIFF FLAG NO
[2022-02-01 12:34] LABS: Basophils Absolute Auto 0.1 X10*3/uL (0.0-0.2); Basophils Percent Auto 0.7 % (0-2); Eosinophils Absolute Auto 0.1 X10*3/uL (0.0-0.4); Eosinophils Percent Auto 0.7 % (0-4); Hematocrit 45.3 % (37.0-47.0); Hemoglobin 13.7 g/dl (12.0-16.0); Imm Gran Abs Auto 0.03 X10*3/uL (0.00-0.03); Imm Gran Pct Auto 0.4 % (0.0-0.4); Lymphocytes Absolute Auto 1.7 X10*3/uL (1.2-4.9); Lymphocytes Percent Auto 22.5 % (20-40); Mean Corpuscular HGB Conc 30.2 g/dl (31.0-35.0); Mean Corpuscular Hemoglobin 28.4 pg (27.0-33.0); Mean Corpuscular Volume 93.8 fL (80.0-98.0); Mean Platelet Volume 12.6 fL (9.4-12.3); Monocytes Absolute Auto 0.5 X10*3/uL (0.1-1.2); Monocytes Percent Auto 6.3 % (2-11); Neutrophils Absolute Auto 5.3 x10*3/uL (2.0-8.3); Neutrophils Percent Auto 69.4 % (45-73); Platelet Count 175 X10*3/uL (160-400); Red Blood Count 4.83 X10*6/uL (4.20-5.50); Red Cell Distribution Width 14.2 % (11.0-16.0); White Blood Count 7.7 X10*3/uL (4.8-10.8)
[2022-02-01 13:08] LABS: Erythrocyte Sedimentation Rate 26 MM/HR (0-20)
[2022-02-01 13:47] LABS: Alanine Aminotransferase 22 U/L (0-31); Alkaline Phosphatase 74 U/L (39-117); Anion Gap 13 (12-20); Aspartate Amino Transferase 22 U/L (5-31); Bilirubin Total 0.6 mg/dL (0.0-1.0); Blood Urea Nitrogen 11 mg/dL (9-16); C Reactive Protein 0.16 mg/dL (< or = 0.50); Calcium 9.9 mg/dL (8.4-10.2); Carbon Dioxide 27 mmol/L (22-29); Chloride 109 mmol/L (96-108); Estimated Glomerular Filt Rate > 60; Glucose Random 95 mg/dL (60-115); Potassium 5.1 mmol/L (3.3-5.1); Sodium 144 mmol/L (135-145); Total Protein 7.6 g/dL (6.5-8.0)
== END 2022-02-01 10:09 | disposition home or self-care (01) ==
LOC: HO.LAB 10:08
PROVIDERS: PCP Internal Medicine; Visit Provider Nurse Practitioner Family
DX: M05.9 Rheumatoid arthritis with rheumatoid factor, unspecified (principal); M54.30 Sciatica, unspecified side; R20.0 Anesthesia of skin; R20.2 Paresthesia of skin; Z79.899 Other long term (current) drug therapy
CPT/HCPCS: 36415; 80053; 85025; 85652; 86140; 99212

== ENCOUNTER → 2022-02-17 09:45 | Outpatient (BNVA) | payer MEDICARE, MEDICAID, SELFPAY | PROVIDERS: PCP Internal Medicine; Visit Provider Hospitalist | DX: J18.9 Pneumonia, unspecified organism (principal); G47.33 Obstructive sleep apnea (adult) (pediatric); Z99.89 Dependence on other enabling machines and devices; M05.79 Rheumatoid arthritis with rheumatoid factor of multiple sites without organ or systems involvement; Z79.899 Other long term (current) drug therapy | CPT/HCPCS: 94618; 94640; 99212 ==

== ENCOUNTER 2022-02-24 09:18 | Outpatient (REF) | payer MEDICARE, MEDICAID, SELFPAY ==
--- NOTE | ~2022-02-24 | CT_ITS ---
EXAMINATION: CT CHEST WITHOUT CONTRAST CLINICAL INFORMATION: Abnormal findings on diagnostic imaging. COMPARISON: Chest x-ray 11/17/2021. TECHNIQUE: Multidetector volumetric CT imaging of the chest was done. Axial MIP volume rendering provided. Sagittal and coronal reformatted images were obtained. This CT examination was performed using dose optimization techniques as appropriate, variously including the following: *Automated exposure control *Adjustment of mA and/or kV according to patient size (this includes techniques or standardized protocols for targeted exams where dose is matched to indication/reason for exam; i.e. extremities or head) *Use of iterative reconstruction technique DLP: 180 mGy-cm FINDINGS: COMM[employer] LINES UNDERWRITER: Well-inflated lungs. LUNGS: The lungs are well inflated with diffuse ground-glass attenuation, mild bronchiectasis and subpleural patchy opacities in both lower lobes and upper lobes, slightly more prominent -n the right lung. There are clusters of small cystic changes in the right upper lobe and apex with wall thickening. Mild increased reticular interstitial thickening seen in the intralobular and interlobular segments. The lungs are hyperinflated. There is no acute consolidation, large pulmonary nodules or masses. MEDIASTINUM: Thyroid lobes are symmetric and normal. The central trachea and the bronchi are widely patent. There are small shotty lymph nodes in the pretracheal space measuring 7 mm. There is no pericardial effusion. There is trace coronary artery and dense mitral valve calcification. The heart size and the great vessels are normal caliber. PLEURA: There is no pleural effusion. No pleural mass or thickening. AXILLA: There are small shotty lymph nodes in the axilla. The chest wall is unremarkable. UPPER ABDOMEN: Visualized liver, spleen, pancreas and adrenal glands are unremarkable. There is a small cyst upper pole right kidney. OSSEOUS STRUCTURES: No aggressive lytic or sclerotic changes. CT/CT chest wo con IMPRESSION: Bilateral diffuse interstitial thickening, ground-glass attenuation and subpleural patchy opacities most prominent in the right lung with bronchiectasis in both lower lobes. 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 Differential diagnoses includes hypersensitivity pneumonitis, drug-related or connective tissue disorder. Bilateral lower lobe bronchiectasis is suggestive of small airway disease involvement. There is no acute consolidation, pleural effusion or abnormal lymphadenopathy, less suggestive of sarcoidosis, pneumoconiosis and cryptogenic organizing pneumonia. Fleischner guidelines were followed.
== END 2022-02-24 09:19 | disposition home or self-care (01) ==
LOC: HO.CT 09:18
PROVIDERS: Visit Provider Hospitalist
DX: R93.89 Abnormal findings on diagnostic imaging of other specified body structures (principal)
CPT/HCPCS: 71250

== ENCOUNTER → 2022-03-06 09:24 | Outpatient (BNVA) | payer MEDICARE, MEDICAID, SELFPAY | PROVIDERS: PCP Internal Medicine; Referring Provider Internal Medicine; Visit Provider Internal Medicine Cardiovascular Disease | DX: J84.9 Interstitial pulmonary disease, unspecified (principal); I48.0 Paroxysmal atrial fibrillation; I50.30 Unspecified diastolic (congestive) heart failure | CPT/HCPCS: 93005; 99212 ==

== ENCOUNTER 2022-04-03 08:52 | Outpatient (REF) | payer MEDICARE, MEDICAID, SELFPAY ==
[2022-04-03 09:37] LABS: MANUAL DIFF FLAG NO
[2022-04-03 10:14] LABS: Basophils Absolute Auto 0.1 X10*3/uL (0.0-0.2); Basophils Percent Auto 0.6 % (0-2); Eosinophils Absolute Auto 0.1 X10*3/uL (0.0-0.4); Eosinophils Percent Auto 1.5 % (0-4); Hematocrit 43.6 % (37.0-47.0); Hemoglobin 13.6 g/dl (12.0-16.0); Imm Gran Abs Auto 0.04 X10*3/uL (0.00-0.03); Imm Gran Pct Auto 0.5 % (0.0-0.4); Lymphocytes Absolute Auto 1.3 X10*3/uL (1.2-4.9); Lymphocytes Percent Auto 15.9 % (20-40); Mean Corpuscular HGB Conc 31.2 g/dl (31.0-35.0); Mean Corpuscular Hemoglobin 28.3 pg (27.0-33.0); Mean Corpuscular Volume 90.6 fL (80.0-98.0); Monocytes Absolute Auto 0.6 X10*3/uL (0.1-1.2); Monocytes Percent Auto 7.4 % (2-11); Neutrophils Absolute Auto 6.1 x10*3/uL (2.0-8.3); Neutrophils Percent Auto 74.1 % (45-73); Platelet Count 143 X10*3/uL (160-400); Red Blood Count 4.81 X10*6/uL (4.20-5.50); Red Cell Distribution Width 14.6 % (11.0-16.0); White Blood Count 8.3 X10*3/uL (4.8-10.8)
[2022-04-03 10:58] LABS: Alanine Aminotransferase 25 U/L (0-31); Albumin Level 3.9 g/dL (3.5-5.0); Alkaline Phosphatase 84 U/L (39-117); Anion Gap 13 (12-20); Aspartate Amino Transferase 23 U/L (5-31); Bilirubin Total 0.5 mg/dL (0.0-1.0); Blood Urea Nitrogen 16 mg/dL (9-16); Calcium 9.3 mg/dL (8.4-10.2); Carbon Dioxide 25 mmol/L (22-29); Chloride 108 mmol/L (96-108); Estimated Glomerular Filt Rate > 60; Glucose Random 91 mg/dL (60-115); Potassium 4.2 mmol/L (3.3-5.1); Sodium 142 mmol/L (135-145); Total Protein 7.4 g/dL (6.5-8.0)
[2022-04-03 11:10] LABS: Erythrocyte Sedimentation Rate 23 MM/HR (0-20)
== END 2022-04-03 08:53 | disposition home or self-care (01) ==
LOC: HO.LAB 08:52
PROVIDERS: PCP Internal Medicine; Visit Provider Nurse Practitioner Family
DX: Z13.89 Encounter for screening for other disorder (principal)
CPT/HCPCS: 36415; 80053; 85025; 85652

== ENCOUNTER 2022-04-06 08:48 | Outpatient (REF) | payer MEDICARE, MEDICAID, SELFPAY ==
--- NOTE | 2022-04-06 | EMG_ITS ---
Right median and ulnar motor and sensory studies were performed. Right radial and sensory study was performed. Paraspinal muscles were tested. IMPRESSION: 1. Mild right median neuropathy across carpal tunnel. 2. Mild right ulnar neuropathy across cubital tunnel. MD DANN George/MICHAEL / [id number]
== END 2022-04-06 08:49 | disposition home or self-care (01) ==
LOC: HO.NEURO 08:48
PROVIDERS: Visit Provider Nurse Practitioner Family
DX: R20.0 Anesthesia of skin (principal); R20.2 Paresthesia of skin
CPT/HCPCS: 95886; 95909

== ENCOUNTER 2022-04-07 08:51 | Emergency (ER) | payer MEDICARE, MEDICAID, SELFPAY ==
[2022-04-07 09:07] VITALS: BP 132/81; PULSE 64; RESP 16; TEMP 35.6; O2SAT 96; BMI 36.3
[2022-04-07 10:42] LABS: IDNOW Serial# 08D9AD1C; Strep A Nucleic Acid Negative (Negative)
[2022-04-07 10:45] LABS: COVID-19 Test Negative (Negative); IDNOW Serial# 16C4AD1C; Influenza A Negative (Negative); Influenza B2 Negative (Negative)
--- NOTE | 2022-04-07 12:21 | ED.EAR ---
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 Patient denies any ear drainage, ear itching. She denies any fevers, chills, runny nose, nasal congestion, cough. No neck pain or stiffness. Patient reports a slight sore throat. No headache, vision changes on the outside. Patient denies any worsened pain with eating, chewing, touch. Related Data Home Medications Medication Instructions Recorded Confirmed atorvastatin 40 mg tablet 40 mg PO BEDTIME 04/15/21 03/06/22 omeprazole 20 mg capsule,delayed mg PO 09/15/21 03/06/22 release Previous Rx's Medication Instructions Recorded rivaroxaban 20 mg tablet (Xarelto) 20 mg PO DAILY #90 tab 07/23/21 acetaminophen 500 mg tablet 500 mg PO Q6H PRN #20 tab 10/28/21 (Tylenol Extra Strength) cyclobenzaprine 5 mg tablet 5 mg PO Q8H PRN 5 Days #14 tab 10/28/21 lidocaine 5 % topical patch 1 patch TOPICAL DAILY PRN #30 ea 10/28/21 (Lidoderm) MDD remove after 12 hours amiodarone 200 mg tablet 200 mg PO DAILY #90 tab 10/31/21 gabapentin 600 mg tablet 600 mg PO TID 90 Days #270 tab 12/15/21 folic acid 1 mg tablet 1 mg PO DAILY #30 tab 01/18/22 losartan 50 mg tablet 25 mg PO DAILY 90 Days #45 tab 02/09/22 atenolol 25 mg tablet 25 mg PO DAILY 30 Days #30 tab 02/10/22 albuterol sulfate 2.5 mg (3 mL) INHALATION BID 02/17/22 Days #180 ml budesonide 0.5 mg/2 mL suspension 0.5 mg (2 mL) INHALATION DAILY 02/17/22 for nebulization Days #60 ml prednisone 5 mg tablet 10 mg PO DAILY 30 Days #60 tab 02/20/22 abatacept 125 mg/mL subcutaneous 125 mg SUBCUT QWEEK #4 ml 03/16/22 auto-injector (Orencia ClickJect) Allergies Allergy/AdvReac Type Severity Reaction Status Date / Time No Known Allergies Allergy Verified 03/06/22 09:32 [No Known Allergies*] Review of Systems Review of Systems: Yes all other systems are reviewed and are negative Constitutional: Constitutional: Reports no additional constitutional complaints, Denies body ache(s), Denies chills, Denies fever(s), Denies headache(s) and Denies weakness Eyes: Eyes: Reports no additional eye complaints and Denies change in vision ENT: Reports system reviewed and no additional complaints, except as documented, Denies dizziness, Reports otalgia, Reports facial pain, Denies headache(s), Denies nasal congestion, Denies nasal discharge, Denies neck pain and Reports sore throat Cardiovascular: Cardiovascular: Reports no additional cardiovascular complaints, Denies chest pain, Denies leg edema and Denies dyspnea Respiratory: Respiratory: Reports no additional respiratory complaints, Denies cough and Denies dyspnea Gastrointestinal: Gastrointestinal: Reports no additional gastrointestinal complaints, Denies abdominal pain, Denies diarrhea, Denies nausea and Denies vomiting Genitourinary: Genitourinary: Reports no additional female genitourinary complaints and Denies urinary incontinence Musculoskeletal: Musculoskeletal: Reports no additional musculoskeletal complaints, Denies back pain, Denies arthralgias, Denies joint swelling, Denies neck pain, Denies numbness and Denies tingling Integumentary/Breasts: Skin/Breast: Reports system reviewed and no additional complaints, except as docu and Denies rash Neurologic: Reports system reviewed and no additional complaints, except as documented, Denies Abnormal speech present, Denies dizziness, Denies headache(s), Denies numbness, Denies tingling and Denies weakness [facility] Past Medical History Attestation statement: The following information was validated with the patient. Source: old records reviewed and nursing notes reviewed Medical History Abnormal chest x-ray Asthma-COPD overlap syndrome Breast pain, left Chronic anticoagulation Diastolic dysfunction Essential hypertension GERD (gastroesophageal reflux disease) History of CVA (cerebrovascular accident) (~2017) Hypoxia ILD (interstitial lung disease) Obesity Obstructive sleep apnea on CPAP Paroxysmal atrial fibrillation (~2017) Personal history of nicotine dependence Pneumonitis Post-menopausal Pure hypercholesterolemia Rheumatoid arthritis Right hemiplegia (~2017) Seropositive rheumatoid arthritis Surgical History History of appendectomy History of foot surgery History of shoulder surgery Family History Family History Father No problems noted. Mother No problems noted. Brother Stomach cancer Social History Social History Household Members: None Housing: House Do you presently have visiting nurse or other home services: No Alcohol intake: current Alcohol intake frequency: holidays/special occasions only Alcohol type: beer Patient Tobacco Use Status: Former Tobacco user Tobacco use type: Cigarette Years Smoked: 20 years Advance Directives: No Advance Directives Information Provided: No service: No Current occupational status: retired Physical Exam Vital Signs: Vital Signs: Last Vital Signs Temp 96.0 F L 04/07/22 09:07 Pulse 64 04/07/22 09:07 Resp 16 04/07/22 09:07 BP 132/81 04/07/22 09:07 Pulse Ox 96 04/07/22 09:07 BMI result Body Mass Index 36.3 Const: General: cooperative, healthy appearing, comfortable and no acute distress Orientation/consciousness: patient oriented x3 Limitations: no limitations HEENT: Head: Yes normal to inspection and No Temporal artery tenderness present Ears: hearing grossly normal bilaterally, TM's normal bilaterally, mastoids normal and no periauricular adenopathy General nose exam: Normal external nose present Face and sinus: Yes normal facial exam and No sinus tenderness Mouth: Normal oral and palatal mucosa present Throat: Yes posterior oropharynx normal, Yes uvula midline and Yes other (mild right tonsillar erythema with no exudate/swelling. Left normal. NO TEMPLER HEAD) Eyes: General: appearance normal, both eyes and all related structures Pupils: Equal, round and reactive pupils present Neck: Neck: Yes normal visual inspection, Yes full ROM, Yes no lymphadenopathy and Yes no meningeal signs Chest: Chest palpation & inspection: normal inspection of the chest Resp: Effort & Inspection: normal respiratory effort Auscultation: clear to auscultation bilaterally Cardio: Rate: regular rate Rhythm: regular rhythm Peripheral pulses: Peripheral pulses 2+ throughout GI: Inspection: Yes normal to inspection Palpation (GI): Soft to palpation and nontender Auscultation: normal bowel sounds Back/Spine/Pelvis: Thoracic/Lumbar Spine: thoracic and lumbar spine normal to inspection Skin: General skin exam: no rashes or lesions noted Neuro: General: patient oriented x3, no meningeal signs, no focal motor deficits and normal sensation to monofilament Cranial nerves: Yes Equal, round and reactive pupils present Cognition (Neuro): normal cognition Speech: No Abnormal speech present Gait exam (Neuro): Normal gait present Motor exam (neuro): 5/5 motor strength present throughout Extrem: General: Yes normal to inspection, Yes no pedal edema and Yes no calf tenderness Course Course Course Narrative: 67 yo female here with right ear pain and pain just in front of the ear on the face which extends down to the jaw. Exam is normal. The right ear is normal. There is no mastoid tenderness or periauricular lymphadenopathy. Full range of motion of the neck. There is some slight erythema to the right tonsillar area but no evidence of peritonsillar abscess or exudate. Uvula is midline. Patient has no temporal artery tenderness. She has no pain with touch or mastication. Will check testing for COVID, flu, strep. Will check labs including inflammatory markers Reevaluation(s) Reevaluation #1: 1200-Negative flu, strep and covid. Throat culture pending. Patient difficult to obtain labs from. Requires us to call phlebotomy who was successful after 2 attempts. Labs were sent at 1300 by phlebotomy. Reevaluation #2: Labs are pending. Patient very upset wanting to leave. Both nursing and myself have spoken to the patient at least 5 times during the course of her ED stay to explain the course of care. She does not want to wait. She left prior to me being able to discuss disposition. Time: 14:00 MDM - Ear MDM Narrative Medical decision making narrative: Temporal arteritis, trigeminal neuralgia, strep pharyngitis, otitis media, viral syndrome Medical Records Attestation: I reviewed the patient's medical records. Lab Data Attestation: I reviewed the patient's lab results. Result diagrams: 04/07/22 13:25 04/07/22 12:31 Labs: Lab Results 04/07/22 04/07/22 04/07/22 Range/Units 10:17 10:18 10:18 WBC (4.8-10.8) X10*3/uL RBC (4.20-5.50) X10*6/uL Hgb (12.0-16.0) g/dl Hct (37.0-47.0) % MCV (80.0-98.0) fL MCH (27.0-33.0) pg MCHC (31.0-35.0) g/dl RDW (11.0-16.0) % Plt Count (160-400) X10*3/uL MPV (9.4-12.3) fL Immature Gran % (Auto) (0.0-0.4) % Neut % (Auto) (45-73) % Lymph % (Auto) (20-40) % [place] % (Auto) (2-11) % Eos % (Auto) (0-4) % Baso % (Auto) (0-2) % Lymph # (Auto) (1.2-4.9) X10*3/uL [place] # (Auto) (0.1-1.2) X10*3/uL Eos # (Auto) (0.0-0.4) X10*3/uL Baso # (Auto) (0.0-0.2) X10*3/uL Abs Immat Gran (auto) (0.00-0.03) X10*3/uL Absolute Neuts (auto) (2.0-8.3) x10*3/uL Absolute Nucleated RBC (0.0-0.012) X10*3/uL Nucleated RBC % (auto) (0.0-0.2) /100WBC COVID-19 (GUERA) Negative (Negative) COVID-19 Clin Com See Note Influenza Type A (JANNA) Negative (Negative) Influenza Type B (JANNA) Negative (Negative) Influenza A & B Note See Note S. pyogenes GrpA JANNA Negative (Negative) 04/07/22 Range/Units 13:25 WBC 9.1 (4.8-10.8) X10*3/uL RBC 4.94 (4.20-5.50) X10*6/uL Hgb 14.2 (12.0-16.0) g/dl Hct 45.5 (37.0-47.0) % MCV 92.1 (80.0-98.0) fL MCH 28.7 (27.0-33.0) pg MCHC 31.2 (31.0-35.0) g/dl RDW 14.6 (11.0-16.0) % Plt Count 176 (160-400) X10*3/uL MPV 12.5 H (9.4-12.3) fL Immature Gran % (Auto) 0.3 (0.0-0.4) % Neut % (Auto) 76.7 H (45-73) % Lymph % (Auto) 16.6 L (20-40) % [place] % (Auto) 4.6 (2-11) % Eos % (Auto) 0.8 (0-4) % Baso % (Auto) 1.0 (0-2) % Lymph # (Auto) 1.5 (1.2-4.9) X10*3/uL [place] # (Auto) 0.4 (0.1-1.2) X10*3/uL Eos # (Auto) 0.1 (0.0-0.4) X10*3/uL Baso # (Auto) 0.1 (0.0-0.2) X10*3/uL Abs Immat Gran (auto) 0.03 (0.00-0.03) X10*3/uL Absolute Neuts (auto) 7.0 (2.0-8.3) x10*3/uL Absolute Nucleated RBC 0.000 (0.0-0.012) X10*3/uL Nucleated RBC % (auto) 0.0 (0.0-0.2) /100WBC COVID-19 (GUERA) (Negative) COVID-19 Clin Com Influenza Type A (JANNA) (Negative) Influenza Type B (JANNA) (Negative) Influenza A & B Note S. pyogenes GrpA JANNA (Negative) Discharge Plan Discharge Clinical Impression: Acute facial pain Patient Disposition: Elopement Prescriptions: No Action Xarelto 20 mg tablet 20 mg PO DAILY Qty: 90 2RF amiodarone 200 mg tablet 200 mg PO DAILY Qty: 90 1RF gabapentin 600 mg tablet 600 mg PO TID 90 Days Qty: 270 3RF folic acid 1 mg tablet 1 mg PO DAILY Qty: 30 5RF losartan 50 mg tablet 25 mg PO DAILY 90 Days Qty: 45 1RF atenolol 25 mg tablet 25 mg PO DAILY 30 Days Qty: 30 5RF prednisone 5 mg tablet 10 mg PO DAILY 30 Days Qty: 60 3RF Orencia ClickJect 125 mg/mL auto-injector 125 mg subcut QWEEK Qty: 4 1RF atorvastatin 40 mg tablet 40 mg PO BEDTIME 0RF acetaminophen [Tylenol Extra Strength] 500 mg tablet 500 mg PO Q6H PRN (Reason: pain or fever) Qty: 20 0RF lidocaine [Lidoderm] 5 % adhesive patch,medicated 1 patch topical DAILY MDD remove after 12 hours PRN (Reason: pain) Qty: 30 0RF Rx Instructions: leave on most painful area for up to 12 hrs cyclobenzaprine 5 mg tablet 5 mg PO Q8H PRN (Reason: pain (scale score 7-10)) 5 Days Qty: 14 0RF omeprazole 20 mg capsule,delayed release(DR/EC) PO 0RF albuterol sulfate 2.5 mg /3 mL (0.083 %) solution for nebulization 2.5 mg inhalation BID 30 Days Qty: 180 11RF budesonide 0.5 mg/2 mL suspension for nebulization 0.5 mg inhalation DAILY 30 Days Qty: 60 11RF Interventions: ED Discharge Assessment Last Done: 04/07/22 13:48 Discharge Date/Time: 04/07/22 13:50
[2022-04-07 13:34] LABS: MANUAL DIFF FLAG NO
[2022-04-07 13:35] LABS: Basophils Absolute Auto 0.1 X10*3/uL (0.0-0.2); Eosinophils Absolute Auto 0.1 X10*3/uL (0.0-0.4); Eosinophils Percent Auto 0.8 % (0-4); Hematocrit 45.5 % (37.0-47.0); Hemoglobin 14.2 g/dl (12.0-16.0); Imm Gran Abs Auto 0.03 X10*3/uL (0.00-0.03); Imm Gran Pct Auto 0.3 % (0.0-0.4); Lymphocytes Absolute Auto 1.5 X10*3/uL (1.2-4.9); Lymphocytes Percent Auto 16.6 % (20-40); Mean Corpuscular HGB Conc 31.2 g/dl (31.0-35.0); Mean Corpuscular Hemoglobin 28.7 pg (27.0-33.0); Mean Corpuscular Volume 92.1 fL (80.0-98.0); Mean Platelet Volume 12.5 fL (9.4-12.3); Monocytes Absolute Auto 0.4 X10*3/uL (0.1-1.2); Monocytes Percent Auto 4.6 % (2-11); Neutrophils Percent Auto 76.7 % (45-73); Platelet Count 176 X10*3/uL (160-400); Red Blood Count 4.94 X10*6/uL (4.20-5.50); Red Cell Distribution Width 14.6 % (11.0-16.0); White Blood Count 9.1 X10*3/uL (4.8-10.8)
--- NOTE | 2022-04-07 13:39 | PC.NURSE ---
PT VERY IMPATIENT ASKING HOW MUCH LONGER X 5. PT INFORMED WITH CHILD DEVELOPMENT INSTRUCTOR WE ARE WAITING ON BLOOD WORK RESULTS.
--- NOTE | 2022-04-07 13:48 | PC.NURSE ---
PT STATES SHE CANNOT WAIT ANY LONGER. PT ELOPED.
[2022-04-07 14:34] LABS: Erythrocyte Sedimentation Rate 24 MM/HR (0-20)
== END 2022-04-07 13:50 | disposition left against medical advice (07) ==
PROVIDERS: Nurse Practitioner Family; Emergency Provider Emergency Medicine; PCP Internal Medicine
DX: R51.9 Headache, unspecified (principal); H92.01 Otalgia, right ear; Z20.822 Contact with and (suspected) exposure to COVID-19; I10 Essential (primary) hypertension; E78.5 Hyperlipidemia, unspecified; I48.91 Unspecified atrial fibrillation; Z86.73 Personal history of transient ischemic attack (TIA), and cerebral infarction without residual deficits; Z79.01 Long term (current) use of anticoagulants; Z79.02 Long term (current) use of antithrombotics/antiplatelets; Z79.899 Other long term (current) drug therapy
CPT/HCPCS: 36415; 80048; 85025; 85652; 86140; 87071; 87502; 87635; 87651; 99282; 99283

== ENCOUNTER 2022-04-14 08:52 | Outpatient (REF) | payer MEDICARE, MEDICAID, SELFPAY ==
[2022-04-14 09:26] LABS: MANUAL DIFF FLAG NO
[2022-04-14 09:52] LABS: Basophils Absolute Auto 0.1 X10*3/uL (0.0-0.2); Basophils Percent Auto 0.6 % (0-2); Eosinophils Absolute Auto 0.2 X10*3/uL (0.0-0.4); Eosinophils Percent Auto 1.8 % (0-4); Hematocrit 43.1 % (37.0-47.0); Hemoglobin 13.2 g/dl (12.0-16.0); Imm Gran Abs Auto 0.03 X10*3/uL (0.00-0.03); Imm Gran Pct Auto 0.4 % (0.0-0.4); Lymphocytes Absolute Auto 1.4 X10*3/uL (1.2-4.9); Lymphocytes Percent Auto 16.6 % (20-40); Mean Corpuscular HGB Conc 30.6 g/dl (31.0-35.0); Mean Corpuscular Hemoglobin 27.7 pg (27.0-33.0); Mean Corpuscular Volume 90.5 fL (80.0-98.0); Mean Platelet Volume 12.4 fL (9.4-12.3); Monocytes Absolute Auto 0.6 X10*3/uL (0.1-1.2); Monocytes Percent Auto 6.9 % (2-11); Neutrophils Absolute Auto 6.1 x10*3/uL (2.0-8.3); Neutrophils Percent Auto 73.7 % (45-73); Platelet Count 176 X10*3/uL (160-400); Red Blood Count 4.76 X10*6/uL (4.20-5.50); Red Cell Distribution Width 14.4 % (11.0-16.0); White Blood Count 8.2 X10*3/uL (4.8-10.8)
[2022-04-14 10:05] LABS: INTERNATIONAL NORM RATIO 1.8 (0.9-1.1); Prothrombin Time 20.3 SEC (9.9-13.0)
[2022-04-14 10:32] LABS: Anion Gap 13 (12-20); Blood Urea Nitrogen 14 mg/dL (9-16); Calcium 9.4 mg/dL (8.4-10.2); Carbon Dioxide 27 mmol/L (22-29); Chloride 107 mmol/L (96-108); Estimated Glomerular Filt Rate > 60; Glucose Random 92 mg/dL (60-115); Potassium 4.6 mmol/L (3.3-5.1); Sodium 142 mmol/L (135-145)
== END 2022-04-14 08:53 | disposition home or self-care (01) ==
LOC: HO.LAB 08:52
PROVIDERS: PCP Internal Medicine; Visit Provider Internal Medicine Cardiovascular Disease
DX: I48.0 Paroxysmal atrial fibrillation (principal)
CPT/HCPCS: 36415; 80048; 85025; 85610

== ENCOUNTER → 2022-04-19 09:09 | Outpatient (REF) | payer MEDICARE, MEDICAID, SELFPAY ==
--- NOTE | 2022-04-19 09:15 | CA_ITS ---
Transthoracic Echocardiogram Patient (Last, First, Middle): Leeanne Lozada, Gender: Female Date of : 1955 Age: 67 Procedure Date: 04/19/2022 Procedure Type: Transthoracic Echocardiogram Location: OP Height: 149.86 cm Weight: 81.65 kg BSA: 1.76 m2 Heart Rate: bpm BP: 130 / 69 mmHg Thread Trimmer: TON Referring MD: Noah Montoya MD Symptoms: I50.30 - Unspecified diastolic (congestive) heart failure Study Quality: Fair/Contrast ECG Rhythm: Sinus Conclusions: - The left ventricular systolic function is normal. The visually estimated ejection fraction is between 65-70%. - Evidence suggests grade II (moderate) diastolic dysfunction. - The left atrium is severely dilated. - There is mild calcification of the aortic valve. - There is severe mitral annular calcification. Findings Procedure Information Contrast agent, definity, is being given per protocol without apparent complications. Left Ventricle Normal left ventricular cavity size. There is moderately increased left ventricular wall thickness. The left ventricular systolic function is normal. The visually estimated ejection fraction is between 65-70%. There is no evidence of regional wall motion abnormalities. E/E prime ratio is >15, consistent with elevated filling pressures. Evidence suggests grade II (moderate) diastolic dysfunction. There is moderate septal asymmetric hypertrophy. Right Ventricle Normal right ventricular cavity size and systolic function. Atria The left atrium is severely dilated. The right atrium is normal in size. Aortic Valve There is a normal trileaflet aortic valve. There is mild calcification of the aortic valve. There is no aortic valve stenosis. There is no aortic valve regurgitation. Mitral Valve There is severe mitral annular calcification. There is trace mitral valve regurgitation. There is no mitral valve stenosis. Pulmonic Valve The pulmonic valve is likely normal. Tricuspid Valve Normal tricuspid valve structure. There is mild tricuspid valve regurgitation. The pulmonary artery systolic pressure is normal. Great Vessels The asc aorta is normal in size. Small plaque is seen in the sino tubular ridge. Venous The inferior vena cava is normal in size and collapses greater than 50% with inspiration. Pericardium/Pleural There is no evidence of pericardial effusion. Prior Study Comparison No significant change compared to prior study dated: 12/17/2020. Measurements 2D Linear Measurements IVSd: 1.45 0.6-0.9/0.6-1.0 cm LVIDd: 4.43 3.9-5.3/4.2-5.9 cm LVIDd Index: 2.52 2.4-3.2/2.2-3.1 cm/m2 LVIDs: 2.53 2.0-3.6 cm LVPWd: 1.25 0.7-1.1 cm LA Diam: 4.40 2.7-3.8/3.0-4.0 cm LAIDs Index: 2.50 1.5-2.3 cm/m2 LV Mass: 286.55 67-162/88-224 g LV Mass Index: 162.81 43-95/49-115 g/m2 LVOT Diam: 1.90 3.0+(-)1.3 cm 2D Systolic Function EF 4C: 70.20 >55% EF 2C: 74.10 >55% EF BiP: 71.80 >55% Mitral Valve MV VTI: 0.44 MV Pk Latrell: 1.43 MV Mn Latrell: 0.69 MV Pk Grad: 8.00 MV Mn Grad: 2.00 MV Pk E: 1.49 MV PK A: 0.82 MV Decel Time: 275.00 E/A: 1.80 E'Lateral: 6.12 E'Medial: 3.92 E/E' Med: 38.00 E/E' Lat: 24.30 PHT: 80.00 MVA PHT: 2.75 MVA Continuity: 1.80 Decel Rincon: 5.44 Aortic Valve AoV Pk Latrell: 1.37 AoV Mn Latrell: 1.04 AoV VTI: 0.32 AoV Pk Grad: 8.00 Aov Mn Grad: 5.00 RICHARD Cont.VTI: 2.44 LVOT LVOT Pk Latrell: 1.13 LVOT Mn Latrell: 0.82 LVOT VTI: 0.28 LVOT Pk Grad: 5.00 LVOT Mn Grad: 3.00 LVOT Diam: 1.90 LVOT Area: 2.84 Diastolic Function MV Pk E: 1.49 MV Pk A: 0.82 E/A: 1.80 E'Medial: 3.92 E/E' Med: 38.00 E' Laterial: 6.12 E/E' Lat: 24.30 Tricuspid Valve TR Pk Latrell: 2.55 TR Pk Grad: 26.00 RA Press: 3.00 RVSP: 29.00 Great Vessels Aorta Sinus of Valsalva: 2.52 2.0-3.[address] Ridge: 2.33 1.7-3.4 cm Ao Asc: 3.10 2.1-3.4 cm Pulmonary Valve PV Pk Latrell: 0.76 Peak PV Grad: 2.00 Updated in Other Vendor System with Status of Final Chuy Frederick MD electronically signed on 04/22/2022 1:16:11 PM with status of Final
== END ==
LOC: HO.CARD 09:09
PROVIDERS: PCP Internal Medicine; Visit Provider Internal Medicine Cardiovascular Disease
DX: I50.30 Unspecified diastolic (congestive) heart failure (principal)
CPT/HCPCS: 93306; Q9957

== ENCOUNTER → 2022-04-21 09:29 | Outpatient (BNVA) | payer MEDICARE, MEDICAID, SELFPAY | PROVIDERS: PCP Internal Medicine; Visit Provider Nurse Practitioner Family | DX: M05.79 Rheumatoid arthritis with rheumatoid factor of multiple sites without organ or systems involvement (principal); I48.91 Unspecified atrial fibrillation; I50.9 Heart failure, unspecified; R20.0 Anesthesia of skin; R20.2 Paresthesia of skin; M54.30 Sciatica, unspecified side; J18.9 Pneumonia, unspecified organism; G47.33 Obstructive sleep apnea (adult) (pediatric); Z79.01 Long term (current) use of anticoagulants; Z79.899 Other long term (current) drug therapy; Z99.89 Dependence on other enabling machines and devices | CPT/HCPCS: 99212 ==

== ENCOUNTER 2022-05-09 10:53 | Outpatient (REF) | payer MEDICARE, MEDICAID, SELFPAY ==
[2022-05-09 12:07] LABS: Alanine Aminotransferase 19 U/L (0-31); Albumin Level 3.7 g/dL (3.5-5.0); Alkaline Phosphatase 96 U/L (39-117); Aspartate Amino Transferase 22 U/L (5-31); Bilirubin Direct 0.2 mg/dL (0.0-0.5); Bilirubin Total 0.5 mg/dL (0.0-1.0); C Reactive Protein 0.36 mg/dL (< or = 0.50); Total Protein 7.2 g/dL (6.5-8.0)
[2022-05-09 14:59] LABS: Erythrocyte Sedimentation Rate 30 MM/HR (0-20)
== END 2022-05-09 10:54 | disposition home or self-care (01) ==
LOC: HO.LAB 10:53
PROVIDERS: Absent Provider Hospitalist; PCP Internal Medicine; Visit Provider Nurse Practitioner Family
DX: M06.9 Rheumatoid arthritis, unspecified (principal)
CPT/HCPCS: 36415; 80076; 85652; 86140

== ENCOUNTER → 2022-05-16 08:19 | Outpatient (BNVA) | payer MEDICARE, MEDICAID, SELFPAY | PROVIDERS: PCP Internal Medicine; Visit Provider Orthopaedic Surgery | DX: G56.01 Carpal tunnel syndrome, right upper limb (principal); G56.21 Lesion of ulnar nerve, right upper limb; Z86.73 Personal history of transient ischemic attack (TIA), and cerebral infarction without residual deficits; Z79.01 Long term (current) use of anticoagulants | CPT/HCPCS: 99202 ==

== ENCOUNTER 2022-05-18 09:46 | Outpatient (REF) | payer MEDICARE, MEDICAID, SELFPAY ==
--- NOTE | ~2022-05-18 | XR_ITS ---
EXAMINATION: BILATERAL SHOULDER AND CHEST X-RAY. CLINICAL INFORMATION: Pain. COMPARISON: None TECHNIQUE: 3 views each shoulder. Chest 2 views FINDINGS: Right shoulder: There is loss of glenohumeral and AC joint space with mild periarticular spurring. No visible acute fracture, dislocation or subluxation seen. There are subchondral cystic changes along the humeral head. No soft tissue calcification or soft tissue swelling seen. Left shoulder: There is a total shoulder arthroplasty with prosthetic components in satisfactory alignment. No periprostatic fractures or loosening seen. Mild loss of left AC joint space is seen. There is osteopenia and areas of sclerosis in the left proximal humerus surrounding the proximal humeral prosthesis. CHEST: The lungs are well-expanded with increased pulmonary vascularity XR/XR shoulder RT min 2V IMPRESSION: Degenerative arthritic changes right hip joint and AC joint but no visible acute fracture. Left shoulder prosthesis is in good alignment with no visible fracture seen. There is a mixed osteopenia and sclerosis left proximal humerus. Mild degenerative changes left AC joint. Suspect mild CHF.
--- NOTE | ~2022-05-18 | XR_ITS ---
EXAMINATION: BILATERAL SHOULDER AND CHEST X-RAY. CLINICAL INFORMATION: Pain. COMPARISON: None TECHNIQUE: 3 views each shoulder. Chest 2 views FINDINGS: Right shoulder: There is loss of glenohumeral and AC joint space with mild periarticular spurring. No visible acute fracture, dislocation or subluxation seen. There are subchondral cystic changes along the humeral head. No soft tissue calcification or soft tissue swelling seen. Left shoulder: There is a total shoulder arthroplasty with prosthetic components in satisfactory alignment. No periprostatic fractures or loosening seen. Mild loss of left AC joint space is seen. There is osteopenia and areas of sclerosis in the left proximal humerus surrounding the proximal humeral prosthesis. CHEST: The lungs are well-expanded with increased pulmonary vascularity XR/XR chest 2V IMPRESSION: Degenerative arthritic changes right hip joint and AC joint but no visible acute fracture. Left shoulder prosthesis is in good alignment with no visible fracture seen. There is a mixed osteopenia and sclerosis left proximal humerus. Mild degenerative changes left AC joint. Suspect mild CHF.
--- NOTE | ~2022-05-18 | XR_ITS ---
EXAMINATION: BILATERAL SHOULDER AND CHEST X-RAY. CLINICAL INFORMATION: Pain. COMPARISON: None TECHNIQUE: 3 views each shoulder. Chest 2 views FINDINGS: Right shoulder: There is loss of glenohumeral and AC joint space with mild periarticular spurring. No visible acute fracture, dislocation or subluxation seen. There are subchondral cystic changes along the humeral head. No soft tissue calcification or soft tissue swelling seen. Left shoulder: There is a total shoulder arthroplasty with prosthetic components in satisfactory alignment. No periprostatic fractures or loosening seen. Mild loss of left AC joint space is seen. There is osteopenia and areas of sclerosis in the left proximal humerus surrounding the proximal humeral prosthesis. CHEST: The lungs are well-expanded with increased pulmonary vascularity XR/XR shoulder LT min 2V IMPRESSION: Degenerative arthritic changes right hip joint and AC joint but no visible acute fracture. Left shoulder prosthesis is in good alignment with no visible fracture seen. There is a mixed osteopenia and sclerosis left proximal humerus. Mild degenerative changes left AC joint. Suspect mild CHF.
[2022-05-18 10:14] LABS: MANUAL DIFF FLAG NO
[2022-05-18 11:05] LABS: Basophils Absolute Auto 0.1 X10*3/uL (0.0-0.2); Eosinophils Absolute Auto 0.1 X10*3/uL (0.0-0.4); Eosinophils Percent Auto 1.6 % (0-4); Hematocrit 44.5 % (37.0-47.0); Hemoglobin 13.7 g/dl (12.0-16.0); Imm Gran Abs Auto 0.02 X10*3/uL (0.00-0.03); Imm Gran Pct Auto 0.3 % (0.0-0.4); Lymphocytes Absolute Auto 1.5 X10*3/uL (1.2-4.9); Lymphocytes Percent Auto 20.9 % (20-40); Mean Corpuscular HGB Conc 30.8 g/dl (31.0-35.0); Mean Corpuscular Hemoglobin 27.4 pg (27.0-33.0); Mean Platelet Volume 12.5 fL (9.4-12.3); Monocytes Absolute Auto 0.7 X10*3/uL (0.1-1.2); Monocytes Percent Auto 9.5 % (2-11); Neutrophils Absolute Auto 4.9 x10*3/uL (2.0-8.3); Neutrophils Percent Auto 66.7 % (45-73); Platelet Count 191 X10*3/uL (160-400); Red Cell Distribution Width 13.9 % (11.0-16.0); White Blood Count 7.3 X10*3/uL (4.8-10.8)
[2022-05-18 11:09] LABS: INTERNATIONAL NORM RATIO 1.5 (0.9-1.1); Prothrombin Time 17.1 SEC (10.0-13.1)
[2022-05-18 11:14] LABS: Anion Gap 12 (12-20); Blood Urea Nitrogen 12 mg/dL (9-16); Calcium 9.2 mg/dL (8.4-10.2); Carbon Dioxide 26 mmol/L (22-29); Chloride 108 mmol/L (96-108); Estimated Glomerular Filt Rate > 60; Glucose Random 87 mg/dL (60-115); Potassium 4.4 mmol/L (3.3-5.1); Sodium 142 mmol/L (135-145)
== END 2022-05-18 09:47 | disposition home or self-care (01) ==
LOC: HO.LAB 09:46
PROVIDERS: Absent Provider Hospitalist; PCP Internal Medicine; Referring Provider Internal Medicine Cardiovascular Disease; Visit Provider Nurse Practitioner Family
DX: M25.511 Pain in right shoulder (principal); M25.512 Pain in left shoulder; J18.9 Pneumonia, unspecified organism; I48.0 Paroxysmal atrial fibrillation
CPT/HCPCS: 36415; 71046; 73030; 80048; 85025; 85610

== ENCOUNTER 2022-05-26 08:44 | Outpatient (REF) | payer MEDICARE, MEDICAID, SELFPAY ==
--- NOTE | 2022-05-26 13:09 | PFT_ITS ---
Spirometry: Forced vital capacity 61%, FEV1 of 68%, and FEV1/FVC ratio is 86, and FEF 25/75 of 91%. Lung volumes: The patient had great difficulty in performing adequate maneuver. Thus, the patient could not have accurate lung volumes and also diffusion capacity. The spirometry findings are consistent with possible moderately severe restrictive disorder, but no obstructive airway disorder. Clinical correlation is recommended. MD MARILEE Brown/MODL / [id number]
== END 2022-05-26 08:45 | disposition home or self-care (01) ==
LOC: HO.RESP 08:44
PROVIDERS: PCP Internal Medicine; Visit Provider Hospitalist
DX: Z13.89 Encounter for screening for other disorder (principal)

== ENCOUNTER → 2022-06-05 09:48 | Outpatient (BNVA) | payer MEDICARE, MEDICAID, SELFPAY | PROVIDERS: PCP Internal Medicine; Referring Provider Internal Medicine; Visit Provider Internal Medicine Cardiovascular Disease | DX: Z01.810 Encounter for preprocedural cardiovascular examination (principal); I48.0 Paroxysmal atrial fibrillation; I50.30 Unspecified diastolic (congestive) heart failure; Z79.01 Long term (current) use of anticoagulants | CPT/HCPCS: 93005; 99212 ==

== ENCOUNTER → 2022-06-08 10:23 | Outpatient (BNVA) | payer MEDICARE, MEDICAID, SELFPAY | PROVIDERS: PCP Internal Medicine; Visit Provider Hospitalist | DX: J18.9 Pneumonia, unspecified organism (principal); G47.33 Obstructive sleep apnea (adult) (pediatric); M05.79 Rheumatoid arthritis with rheumatoid factor of multiple sites without organ or systems involvement; Z99.89 Dependence on other enabling machines and devices | CPT/HCPCS: 99212 ==

== ENCOUNTER 2022-07-03 15:19 | Outpatient (REF) | payer MEDICARE, MEDICAID, SELFPAY ==
--- NOTE | ~2022-07-03 | CT_ITS ---
EXAMINATION: CT CHEST WITHOUT CONTRAST CLINICAL INFORMATION: Pneumonia COMPARISON: Previous chest CT February 2022 TECHNIQUE: Multidetector volumetric CT imaging of the chest was done. Axial MIP volume rendering provided. Sagittal and coronal reformatted images were obtained. This CT examination was performed using dose optimization techniques as appropriate, variously including the following: *Automated exposure control *Adjustment of mA and/or kV according to patient size (this includes techniques or standardized protocols for targeted exams where dose is matched to indication/reason for exam; i.e. extremities or head) *Use of iterative reconstruction technique DLP: 337 mGy-cm FINDINGS: COAL TRAMMER: LUNGS: There is evidence of emphysema. There are scattered areas of increased reticular interstitial markings and increased groundglass attenuation scattered throughout the lungs that appears increased. There is focal bronchiectasis and bronchial wall thickening, greatest in the inferior segment of the lingula and posterior medial right lower lobe. There are increasing small peripheral infiltrates. This is seen in the left upper lobe for example axial image 26 series 3. There is a nodular opacities seen in the more central left lower lobe for example 27 series 3. There is increasing infiltrate in the inferior segment of the lingula and posterior medial right lower lobe for example axial 35 series 3. There is a 3 mm left lower lobe nodule axial image 272 series 7 that is stable. No endobronchial or endotracheal lesion. MEDIASTINUM: There is shotty mediastinal lymphadenopathy that is stable. The heart does not appear enlarged. There is coronary artery and mitral annular calcification. No pericardial effusion. Normal caliber thoracic aorta. PLEURA: There is no pleural effusion. No pleural mass or thickening. AXILLA: No lymphadenopathy. UPPER ABDOMEN: Unremarkable. OSSEOUS STRUCTURES: Left shoulder replacement. Degenerative changes of the right shoulder joint. Degenerative changes of the spine. CT/CT chest wo con IMPRESSION: Emphysema. Worsening interstitial disease with increased peripheral reticular markings and groundglass attenuation and increasing peripheral infiltrates in the left upper lobe, lingula and right lower lobe. Fleischner guidelines were followed.
== END 2022-07-03 15:20 | disposition home or self-care (01) ==
LOC: HO.CT 15:19
PROVIDERS: Visit Provider Hospitalist
DX: J18.9 Pneumonia, unspecified organism (principal)
CPT/HCPCS: 71250

== ENCOUNTER → 2022-07-28 08:49 | Outpatient (REF) | payer MEDICARE, MEDICAID, SELFPAY ==
--- NOTE | 2022-07-28 09:02 | ECG_ITS ---
Test Reason : preop Blood Pressure : / mmHG Vent. Rate : 068 BPM Atrial Rate : 068 BPM P-R Int : 202 ms QRS Dur : 088 ms QT Int : 424 ms P-R-T Axes : 075 002 062 degrees QTc Int : 450 ms Normal sinus rhythm Normal ECG When compared with ECG of 18-APR-2021 12:55, QRS duration has increased Referred By: Rachelle Hoffman Electronically Signed By:LUCILLE LOPEZ
[2022-07-28 10:00] LABS: Hematocrit 43.1 % (37.0-47.0); Hemoglobin 13.3 g/dl (12.0-16.0); Mean Corpuscular HGB Conc 30.9 g/dl (31.0-35.0); Mean Corpuscular Hemoglobin 27.1 pg (27.0-33.0); Mean Platelet Volume 12.4 fL (9.4-12.3); Platelet Count 198 X10*3/uL (160-400); Red Cell Distribution Width 14.1 % (11.0-16.0); White Blood Count 7.2 X10*3/uL (4.8-10.8)
[2022-07-28 10:02] LABS: INTERNATIONAL NORM RATIO 1.4 (0.9-1.1); Prothrombin Time 16.3 SEC (10.0-13.1)
[2022-07-28 10:28] LABS: Anion Gap 15 (12-20); Blood Urea Nitrogen 10 mg/dL (9-16); Calcium 9.2 mg/dL (8.4-10.2); Carbon Dioxide 24 mmol/L (22-29); Chloride 108 mmol/L (96-108); Estimated Glomerular Filt Rate > 60; Glucose Random 89 mg/dL (60-115); Potassium 4.4 mmol/L (3.3-5.1); Sodium 143 mmol/L (135-145)
[2022-07-28 10:52] LABS: TSH reflex Free T4 0.51 uIU/mL (0.32-4.0)
== END ==
LOC: HO.CARD 08:49
PROVIDERS: PCP Internal Medicine; Visit Provider Nurse Practitioner Family
DX: Z01.818 Encounter for other preprocedural examination (principal); M05.9 Rheumatoid arthritis with rheumatoid factor, unspecified; R20.0 Anesthesia of skin; R20.2 Paresthesia of skin; M54.30 Sciatica, unspecified side; M19.011 Primary osteoarthritis, right shoulder; M19.012 Primary osteoarthritis, left shoulder
CPT/HCPCS: 36415; 80048; 84443; 85027; 85610; 93005; 99212

== ENCOUNTER → 2022-08-10 10:43 | Outpatient (BNVA) | payer MEDICARE, MEDICAID, SELFPAY | PROVIDERS: PCP Internal Medicine; Visit Provider Orthopaedic Surgery | DX: M19.011 Primary osteoarthritis, right shoulder (principal); M19.012 Primary osteoarthritis, left shoulder | CPT/HCPCS: 20610; 99202; J1100 ==

== ENCOUNTER 2022-08-11 09:56 | Outpatient (REF) | payer MEDICARE, MEDICAID, SELFPAY ==
--- NOTE | ~2022-08-11 | XR_ITS ---
EXAMINATION: XR CHEST CLINICAL INFORMATION: Interstitial lung disease COMPARISON: Previous chest x-ray most recent May [address] June 2022 TECHNIQUE: 2 views of the chest were obtained. FINDINGS: The cardiac and mediastinal contours are stable. The lung volumes are low. There are increased interstitial markings not appreciably changed from prior exams. There is no pleural effusion or pneumothorax. There is a left shoulder replacement. XR/XR chest 2V IMPRESSION: No appreciable change in interstitial disease from recent exams.
== END 2022-08-11 09:57 | disposition home or self-care (01) ==
LOC: HO.XRAY 09:56
PROVIDERS: Visit Provider Hospitalist
DX: Z01.811 Encounter for preprocedural respiratory examination (principal); J84.9 Interstitial pulmonary disease, unspecified; J44.9 Chronic obstructive pulmonary disease, unspecified; M05.79 Rheumatoid arthritis with rheumatoid factor of multiple sites without organ or systems involvement
CPT/HCPCS: 71046; 99212

== ENCOUNTER → 2022-08-15 09:08 | Outpatient (BNVA) | payer MEDICARE, MEDICAID, SELFPAY | PROVIDERS: PCP Internal Medicine; Visit Provider Orthopaedic Surgery | DX: G56.01 Carpal tunnel syndrome, right upper limb (principal); G56.21 Lesion of ulnar nerve, right upper limb | CPT/HCPCS: 99212 ==

== ENCOUNTER 2022-08-15 13:15 | Emergency (ER) | payer MEDICARE, MEDICAID, SELFPAY | END 2022-08-15 15:09 | disposition left against medical advice (07) | LOC: HO.ED 15:06 | PROVIDERS: Emergency Provider Emergency Medicine; PCP Internal Medicine | DX: R07.89 Other chest pain (principal) ==

== ENCOUNTER 2022-08-30 17:51 | Emergency (ER) | payer MEDICARE, MEDICAID, SELFPAY ==
--- NOTE | ~2022-08-30 | XR_ITS ---
EXAMINATION: XR SHOULDER, RIGHT CLINICAL INFORMATION: Pain, no trauma COMPARISON: Right shoulder radiographs 07/19/2022 TECHNIQUE: 3 views right shoulder of the right shoulder. FINDINGS: No acute fracture or dislocation. Mild glenohumeral joint space narrowing with subchondral sclerosis and small osteophytes. AC joint is congruent and intact with subchondral sclerosis and osteophyte formation. Large subacromial enthesophyte/spur. No periarticular soft tissue calcification. Coarse and increased reticular markings throughout the right lung, unchanged, consistent with chronic interstitial disease/mild fibrosis on prior chest CT. XR/XR shoulder RT min 2V IMPRESSION: 1. No acute osseous injury. 2. Mild glenohumeral joint osteoarthritis and acromioclavicular arthropathy. 3. Large subacromial enthesophyte/spur.
--- NOTE | ~2022-08-30 | XR_ITS ---
EXAMINATION: XR CHEST CLINICAL INFORMATION: Cough COMPARISON: Chest x-ray 08/11/2022 TECHNIQUE: Frontal view of the chest was obtained. FINDINGS: No dense airspace consolidation. Usually increased reticular interstitial markings bilaterally, unchanged.. No pleural effusion or pneumothorax. Cardiomediastinal silhouette is unchanged within normal limits. No cardiomegaly. No acute osseous injury. Left reverse total shoulder arthroplasty noted. XR/XR chest 1V IMPRESSION: 1. No acute pulmonary disease. 2. Unchanged mild diffuse interstitial prominence, likely chronic interstitial lung disease.
[2022-08-30 17:52] VITALS: PULSE 120; RESP 36; TEMP 37.2; O2SAT 91; BMI 36.3
[2022-08-30 18:04] VITALS: BP 206/103; PULSE 91; RESP 24; O2SAT 95
--- NOTE | 2022-08-30 18:07 | ECG_ITS ---
Test Reason : SOB Blood Pressure : / mmHG Vent. Rate : 085 BPM Atrial Rate : 085 BPM P-R Int : 206 ms QRS Dur : 094 ms QT Int : 398 ms P-R-T Axes : 058 021 061 degrees QTc Int : 473 ms Normal sinus rhythm Normal ECG When compared with ECG of 28-JUL-2022 09:14, No significant change was found Referred By: Cherelle Pagan Electronically Signed By:JOSE ANTONIO EARLY MD
[2022-08-30] MEDS: Morphine Sulfate 2 MG/ML CARTRIDGE 1 MG IM (18:38)
[2022-08-30] MEDS: Midazolam HCl/PF 2 MG/2 ML VIAL IM (18:38)
[2022-08-30 18:39] LABS: MANUAL DIFF FLAG NO
[2022-08-30 18:42] LABS: Basophils Absolute Auto 0.1 X10*3/uL (0.0-0.2); Basophils Percent Auto 0.8 % (0-2); Eosinophils Absolute Auto 0.2 X10*3/uL (0.0-0.4); Eosinophils Percent Auto 2.2 % (0-4); Hematocrit 41.4 % (37.0-47.0); Hemoglobin 12.9 g/dl (12.0-16.0); Imm Gran Abs Auto 0.02 X10*3/uL (0.00-0.03); Imm Gran Pct Auto 0.2 % (0.0-0.4); Lymphocytes Absolute Auto 3.5 X10*3/uL (1.2-4.9); Lymphocytes Percent Auto 37.1 % (20-40); Mean Corpuscular HGB Conc 31.2 g/dl (31.0-35.0); Mean Corpuscular Volume 86.8 fL (80.0-98.0); Mean Platelet Volume 11.9 fL (9.4-12.3); Monocytes Absolute Auto 0.9 X10*3/uL (0.1-1.2); Monocytes Percent Auto 8.9 % (2-11); Neutrophils Absolute Auto 4.8 x10*3/uL (2.0-8.3); Neutrophils Percent Auto 50.8 % (45-73); Platelet Count 180 X10*3/uL (160-400); Red Blood Count 4.77 X10*6/uL (4.20-5.50); Red Cell Distribution Width 14.2 % (11.0-16.0); White Blood Count 9.5 X10*3/uL (4.8-10.8)
[2022-08-30 18:42] LABS: Venous Blood Gas Refer to POC result
[2022-08-30 18:42] LABS: VBG Base Excess -1.8 mmol/L; VBG HCO3 22 mmol/L (22-26); VBG pCO2 36 mmHg; VBG pH 7.39 (7.32-7.43); VBG pO2 47 mmHg
[2022-08-30 18:53] LABS: Lactic Acid 1.8 mmol/L (0.5-2.0)
[2022-08-30 18:56] LABS: INTERNATIONAL NORM RATIO 1.4 (0.9-1.1); Prothrombin Time 16.2 SEC (10.0-13.1)
[2022-08-30 18:58] LABS: D Dimer High Sensitivity 246 NG/ML
[2022-08-30 18:59] LABS: B Type Natriuretic Peptide 120 pg/mL (<100); Troponin-I High Sensitivity < 3.5 ng/L (<3.5-17.0)
[2022-08-30 19:00] LABS: COVID-19 Test Negative (Negative)
[2022-08-30 19:26] LABS: Alanine Aminotransferase 16 U/L (0-31); Albumin Level 3.9 g/dL (3.5-5.0); Alkaline Phosphatase 114 U/L (39-117); Anion Gap 17 (12-20); Aspartate Amino Transferase 20 U/L (5-31); Bilirubin Direct < 0.2 mg/dL (0.0-0.5); Bilirubin Total 0.3 mg/dL (0.0-1.0); Blood Urea Nitrogen 16 mg/dL (9-16); Carbon Dioxide 23 mmol/L (22-29); Chloride 106 mmol/L (96-108); Creatinine Clr Calc Pharmacy 59.2; Estimated Glomerular Filt Rate > 60; Glucose Random 124 mg/dL (60-115); Magnesium 1.9 mg/dL (1.6-2.6); Potassium 3.9 mmol/L (3.3-5.1); Sodium 142 mmol/L (135-145); Total Protein 7.6 g/dL (6.5-8.0)
--- NOTE | 2022-08-30 19:45 | ED_ITS ---
HPI - General Adult General Chief complaint: Dyspnea Stated complaint: sob, issues with right arm Time Seen by Provider: 08/30/22 18:04 Source: patient Mode of arrival: ambulatory Limitations: no limitations History of Present Illness HPI narrative: Patient comes to emergency room complaining of severe right-sided shoulder pain and a panic attack. When patient arrived to the emergency room, patient had a panic attack. Patient was given 2 mg IM of Versed, 1 mg of morphine, then patient was able to calm down. Patient states that the severe pain in her shoulder was hurting. It has been hurting for several days. Denies any injury. According to the triage note, patient came in coughing blood, short of breath. Patient denies any respiratory issues Related Data Home Medications Medication Instructions Recorded Confirmed omeprazole 20 mg capsule,delayed mg PO 09/15/21 07/28/22 release ibuprofen 800 mg tablet 800 mg PO Q8H 04/21/22 07/28/22 flecainide 100 mg tablet 100 mg PO Q12H 06/05/22 07/28/22 Previous Rx's Medication Instructions Recorded lidocaine 5 % topical patch 1 patch topical DAILY PRN pain #30 10/28/21 (Lidoderm) ea gabapentin 600 mg tablet 600 mg PO TID 90 days #270 tabs 12/15/21 atenolol 25 mg tablet 25 mg PO DAILY 30 days #30 tabs 02/10/22 albuterol sulfate 2.5 mg/3 mL 2.5 mg (3 mL) inhalation BID 30 02/17/22 (0.083 %) solution for nebulization days #180 mL budesonide 0.5 mg/2 mL suspension 0.5 mg (2 mL) inhalation DAILY 30 02/17/22 for nebulization days #60 mL prednisone 5 mg tablet 10 mg PO DAILY 30 days #60 tabs 02/20/22 atorvastatin 40 mg tablet 40 mg PO DAILY 90 days #90 tabs 04/10/22 Cock up splint #1 ea 04/12/22 rivaroxaban 20 mg tablet (Xarelto) 20 mg PO DAILY #90 tabs 05/12/22 abatacept 125 mg/mL subcutaneous 125 mg subcut QWEEK #4 mL 07/26/22 auto-injector (Orencia ClickJect) acetaminophen 650 mg 650 mg PO Q8H PRN pain 30 days #90 08/11/22 tablet,extended release (Mapap tabs Arthritis Pain) fluticasone furoate 200 1 inh inhalation DAILY 30 days #60 08/11/22 mcg-vilanterol 25 mcg/dose ea inhalation powder (Breo Ellipta) losartan 50 mg tablet 25 mg PO DAILY 90 days #45 tabs 08/11/22 oxycodone 5 mg tablet 5 mg PO BID PRN pain #6 tabs 08/30/22 Allergies Allergy/AdvReac Type Severity Reaction Status Date / Time No Known Allergies Allergy Verified 08/15/22 09:17 [No Known Allergies*] Review of Systems Review of Systems: Constitutional : No Weight loss, No Fever, No Chills, No Night Sweats, No Fatigue, No Malaise ENT/Mouth : No Hearing loss, No Ear Pain, No Nasal Congestion, No Sinus Pain, No Hoarseness, No sore throat, No Rhinorrhea, No Swallowing Difficulty Eyes: No Eye Pain, No Swelling, No Redness, No Foreign Body, No Discharge, No Vision Changes Cardiovascular : No Chest Pain, No SOB, No Dyspnea on Exertion, No Orthopnea, No Edema, No Palpitations Respiratory : No Cough, No Sputum, No Wheezing, No Smoke Exposure, No Dyspnea Gastrointestinal : No Nausea, No Vomiting, No Diarrhea, No Constipation, No abdominal Pain, No Hematochezia, No Melena Genitourinary : no irregular bleeding, No Dysuria, No Urinary Frequency, No Hematuria, No Urinary Incontinence, No Urgency, No Flank Pain, No Urinary Flow Changes, No Hesitancy Musculoskeletal : Complaining of right shoulder pain with movement, No Myalgias, No Joint Swelling Skin : No Skin Lesions, No rash Neuro : No Weakness, No Numbness, No Paresthesias, No Loss of Consciousness, No Dizziness, No Headache Psych : Panic attack, No Depression, No SI/HI/AH/VH, No Social Issues, Heme/Lymph: No Bruising, No Bleeding,No Lymphadenopathy Endocrine : No Polyuria, No Polydipsia, No Temperature Intolerance [facility] Past Medical History Medical History Abnormal chest x-ray Asthma-COPD overlap syndrome Breast pain, left Chronic anticoagulation Diastolic dysfunction Essential hypertension GERD (gastroesophageal reflux disease) History of CVA (cerebrovascular accident) (~2017) Hypoxia ILD (interstitial lung disease) Obesity Obstructive sleep apnea on CPAP Osteoarthritis of shoulders, bilateral Paroxysmal atrial fibrillation (~2017) Personal history of nicotine dependence Pneumonitis Post-menopausal Pre-op chest exam Pure hypercholesterolemia Rheumatoid arthritis Right hemiplegia (~2017) Seropositive rheumatoid arthritis Surgical History History of appendectomy History of foot surgery History of shoulder surgery Family History Family History Father No problems noted. Mother No problems noted. Brother Stomach cancer Social History Social History Household Members: None Housing: House Do you presently have visiting nurse or other home services: No Alcohol intake: current Alcohol intake frequency: holidays/special occasions only Alcohol type: beer Patient Tobacco Use Status: Former Tobacco user Tobacco use type: Cigarette Years Smoked: 20 years e-Cigarette/Vaping Use: Never Used Second Hand Smoke Exposure: No Advance Directives: No service: No Current occupational status: retired Cognitive needs: No Hearing needs: No Vision needs: No Physical Exam ED Vital Signs: Vital Signs - 24 hr 08/30/22 17:52 08/30/22 18:04 Temperature 98.9 F Pulse Rate 120 H 91 Respiratory Rate 36 H 24 H Blood Pressure 206/103 H Pulse Oximetry 91 L 95 Oxygen Delivery Method Room Air Room Air BMI result Body Mass Index 36.3 Const Other: Appearance: Alert. Oriented X3. Having a panic attack Eyes: Pupils equal, round and reactive to light. ENT: Pharynx normal. Neck: Normal inspection. Neck supple. No lymph nodes noted. No crepitus CVS: Normal heart rate and rhythm. Pulses normal. Normal S1 and S2 Respiratory: Tachypneic, good air movement, no wheezing, no rales or crackles Abdomen: Soft and nontender. No rigidity. No distention. Skin: Skin warm and dry. Normal skin color. Normal skin turgor. Extremities: Screams hysterically when I barely touched her right shoulder with 1 finger Neuro: Oriented X 3. No motor deficit. No sensory deficit. Moving all extremities. No slurred speech. CN 2 through 12 grossly intact Psych: Very anxious, having a panic attack Course Course Course Narrative: Patient was given 2 mg of Versed IM, 1 mg of morphine, patient was able to calm down, now patient states that she feels well, has very mild right shoulder pain, only hurting with movement. Denies any chest pain or shortness of breath. Patient no longer anxious, normal affect Of patient's labs are baseline, chest x-ray of the shoulder and chest pending. Patient's D-dimer is 246, age adjusted is negative, for patient's age, a D-dimer of 680 would be positive. Wells criteria for pulmonary embolism is 0. Patient takes Xarelto as well for atrial flutter and states she is compliant. Patient's initial blood pressure was 206/103, however at this time patient was having a panic attack. After patient was able to relax , blood pressure decreased to 160/94 without any further treatment, other than the anxiolytic and the morphine Right shoulder and chest x-ray are x-ray negative. I discussed with the patient if she continues having pain of her right shoulder, she may need an orthopedics consult, she may need an MRI. Patient requesting 1 more dose of medication her shoulder. Patient states it only hurts when she lifts her arm up. Patient given 1 dose of oxycodone Also, I discussed with the patient and her granddaughter, the patient is to be evaluated further more for anxiety/panic attacks. Medical Decision Making Lab Data Result diagrams: 08/30/22 18:30 08/30/22 18:30 Labs: Lab Results 08/30/22 08/30/22 08/30/22 Range/Units 18:30 18:30 18:30 WBC 9.5 (4.8-10.8) X10*3/uL RBC 4.77 (4.20-5.50) X10*6/uL Hgb 12.9 (12.0-16.0) g/dl Hct 41.4 (37.0-47.0) % MCV 86.8 (80.0-98.0) fL MCH 27.0 (27.0-33.0) pg MCHC 31.2 (31.0-35.0) g/dl RDW 14.2 (11.0-16.0) % Plt Count 180 (160-400) X10*3/uL MPV 11.9 (9.4-12.3) fL Immature Gran % (Auto) 0.2 (0.0-0.4) % Neut % (Auto) 50.8 (45-73) % Lymph % (Auto) 37.1 (20-40) % Pacific % (Auto) 8.9 (2-11) % Eos % (Auto) 2.2 (0-4) % Baso % (Auto) 0.8 (0-2) % Lymph # (Auto) 3.5 (1.2-4.9) X10*3/uL Pacific # (Auto) 0.9 (0.1-1.2) X10*3/uL Eos # (Auto) 0.2 (0.0-0.4) X10*3/uL Baso # (Auto) 0.1 (0.0-0.2) X10*3/uL Abs Immat Gran (auto) 0.02 (0.00-0.03) X10*3/uL Absolute Neuts (auto) 4.8 (2.0-8.3) x10*3/uL Absolute Nucleated RBC 0.000 (0.0-0.012) X10*3/uL Nucleated RBC % (auto) 0.0 (0.0-0.2) /100WBC PT 16.2 H (10.0-13.1) SEC INR 1.4 H (0.9-1.1) D-Dimer High Sensitivty 246 NG/ML VBG pH (7.32-7.43) VBG pCO2 mmHg VBG pO2 mmHg VBG HCO3 (22-26) mmol/L VBG O2 Saturation % VBG Base Excess mmol/L Sodium 142 (135-145) mmol/L Potassium 3.9 (3.3-5.1) mmol/L Chloride 106 (96-108) mmol/L Carbon Dioxide 23 (22-29) mmol/L Anion Gap 17 (12-20) BUN 16 D (9-16) mg/dL Creatinine 0.84 (0.5-1.4) mg/dL Estim Creat Clear Calc 59.2 Estimated GFR > 60 Random Glucose 124 H (60-115) mg/dL Lactic Acid (0.5-2.0) mmol/L Calcium 9.0 (8.4-10.2) mg/dL Magnesium 1.9 (1.6-2.6) mg/dL Total Bilirubin 0.3 (0.0-1.0) mg/dL Direct Bilirubin < 0.2 (0.0-0.5) mg/dL AST 20 (5-31) U/L ALT 16 (0-31) U/L Alkaline Phosphatase 114 (39-117) U/L Troponin I High Sens (<3.5-17.0) ng/L B-Natriuretic Peptide (<100) pg/mL Total Protein 7.6 (6.5-8.0) g/dL Albumin 3.9 (3.5-5.0) g/dL COVID-19 (GUERA) (Negative) COVID-19 Clin Com 08/30/22 08/30/22 08/30/22 Range/Units 18:30 18:30 18:30 WBC (4.8-10.8) X10*3/uL RBC (4.20-5.50) X10*6/uL Hgb (12.0-16.0) g/dl Hct (37.0-47.0) % MCV (80.0-98.0) fL MCH (27.0-33.0) pg MCHC (31.0-35.0) g/dl RDW (11.0-16.0) % Plt Count (160-400) X10*3/uL MPV (9.4-12.3) fL Immature Gran % (Auto) (0.0-0.4) % Neut % (Auto) (45-73) % Lymph % (Auto) (20-40) % Pacific % (Auto) (2-11) % Eos % (Auto) (0-4) % Baso % (Auto) (0-2) % Lymph # (Auto) (1.2-4.9) X10*3/uL Pacific # (Auto) (0.1-1.2) X10*3/uL Eos # (Auto) (0.0-0.4) X10*3/uL Baso # (Auto) (0.0-0.2) X10*3/uL Abs Immat Gran (auto) (0.00-0.03) X10*3/uL Absolute Neuts (auto) (2.0-8.3) x10*3/uL Absolute Nucleated RBC (0.0-0.012) X10*3/uL Nucleated RBC % (auto) (0.0-0.2) /100WBC PT (10.0-13.1) SEC INR (0.9-1.1) D-Dimer High Sensitivty NG/ML VBG pH (7.32-7.43) VBG pCO2 mmHg VBG pO2 mmHg VBG HCO3 (22-26) mmol/L VBG O2 Saturation % VBG Base Excess mmol/L Sodium (135-145) mmol/L Potassium (3.3-5.1) mmol/L Chloride (96-108) mmol/L Carbon Dioxide (22-29) mmol/L Anion Gap (12-20) BUN (9-16) mg/dL Creatinine (0.5-1.4) mg/dL Estim Creat Clear Calc Estimated GFR Random Glucose (60-115) mg/dL Lactic Acid 1.8 (0.5-2.0) mmol/L Calcium (8.4-10.2) mg/dL Magnesium (1.6-2.6) mg/dL Total Bilirubin (0.0-1.0) mg/dL Direct Bilirubin (0.0-0.5) mg/dL AST (5-31) U/L ALT (0-31) U/L Alkaline Phosphatase (39-117) U/L Troponin I High Sens < 3.5 (<3.5-17.0) ng/L B-Natriuretic Peptide 120 H (<100) pg/mL Total Protein (6.5-8.0) g/dL Albumin (3.5-5.0) g/dL COVID-19 (GUERA) Negative (Negative) COVID-19 Clin Com See Note 08/30/22 Range/Units 18:37 WBC (4.8-10.8) X10*3/uL RBC (4.20-5.50) X10*6/uL Hgb (12.0-16.0) g/dl Hct (37.0-47.0) % MCV (80.0-98.0) fL MCH (27.0-33.0) pg MCHC (31.0-35.0) g/dl RDW (11.0-16.0) % Plt Count (160-400) X10*3/uL MPV (9.4-12.3) fL Immature Gran % (Auto) (0.0-0.4) % Neut % (Auto) (45-73) % Lymph % (Auto) (20-40) % Pacific % (Auto) (2-11) % Eos % (Auto) (0-4) % Baso % (Auto) (0-2) % Lymph # (Auto) (1.2-4.9) X10*3/uL Pacific # (Auto) (0.1-1.2) X10*3/uL Eos # (Auto) (0.0-0.4) X10*3/uL Baso # (Auto) (0.0-0.2) X10*3/uL Abs Immat Gran (auto) (0.00-0.03) X10*3/uL Absolute Neuts (auto) (2.0-8.3) x10*3/uL Absolute Nucleated RBC (0.0-0.012) X10*3/uL Nucleated RBC % (auto) (0.0-0.2) /100WBC PT (10.0-13.1) SEC INR (0.9-1.1) D-Dimer High Sensitivty NG/ML VBG pH 7.39 (7.32-7.43) VBG pCO2 36 mmHg VBG pO2 47 mmHg VBG HCO3 22 (22-26) mmol/L VBG O2 Saturation 75.0 % VBG Base Excess -1.8 mmol/L Sodium (135-145) mmol/L Potassium (3.3-5.1) mmol/L Chloride (96-108) mmol/L Carbon Dioxide (22-29) mmol/L Anion Gap (12-20) BUN (9-16) mg/dL Creatinine (0.5-1.4) mg/dL Estim Creat Clear Calc Estimated GFR Random Glucose (60-115) mg/dL Lactic Acid (0.5-2.0) mmol/L Calcium (8.4-10.2) mg/dL Magnesium (1.6-2.6) mg/dL Total Bilirubin (0.0-1.0) mg/dL Direct Bilirubin (0.0-0.5) mg/dL AST (5-31) U/L ALT (0-31) U/L Alkaline Phosphatase (39-117) U/L Troponin I High Sens (<3.5-17.0) ng/L B-Natriuretic Peptide (<100) pg/mL Total Protein (6.5-8.0) g/dL Albumin (3.5-5.0) g/dL COVID-19 (GUERA) (Negative) COVID-19 Clin Com Imaging Data Chest x-ray: Radiologist's impression: FINDINGS: No dense airspace consolidation. Usually increased reticular interstitial markings bilaterally, unchanged.. No pleural effusion or pneumothorax. Cardiomediastinal silhouette is unchanged within normal limits. No cardiomegaly. No acute osseous injury. Left reverse total shoulder arthroplasty noted. XR/XR chest 1V IMPRESSION: 1.? No acute pulmonary disease. 2.? Unchanged mild diffuse interstitial prominence, likely chronic interstitial lung disease. ? Right shoulder x-ray: Radiologist's impression: INDINGS: No acute fracture or dislocation. Mild glenohumeral joint space narrowing with subchondral sclerosis and small osteophytes. AC joint is congruent and intact with subchondral sclerosis and osteophyte formation. Large subacromial enthesophyte/spur. No periarticular soft tissue calcification. Coarse and increased reticular markings throughout the right lung, unchanged, consistent with chronic interstitial disease/mild fibrosis on prior chest CT.? XR/XR shoulder RT min 2V IMPRESSION: 1.? No acute osseous injury. 2.? Mild glenohumeral joint osteoarthritis and acromioclavicular arthropathy. 3.? Large subacromial enthesophyte/spur. Discharge Plan Discharge Clinical Impression: Panic attack, Acute pain of right shoulder Patient Disposition: Home, Self-Care Instructions: Shoulder Pain (ED), Panic Attack (ED) Additional Instructions: Please follow-up with your primary care physician tomorrow. If you have any worsening or new symptoms, please return to the emergency room or call 911 Prescriptions: New oxycodone 5 mg tablet 5 mg PO BID PRN (Reason: pain) Qty: 6 0RF Rx Instructions: Partial Fill upon patient request. Use only in case of severe pain. For [id number] pain use Tylenol No Action gabapentin 600 mg tablet 600 mg PO TID 90 Days Qty: 270 3RF atenolol 25 mg tablet 25 mg PO DAILY 30 Days Qty: 30 5RF prednisone 5 mg tablet 10 mg PO DAILY 30 Days Qty: 60 3RF atorvastatin 40 mg tablet 40 mg PO DAILY 90 Days Qty: 90 3RF (DME) Cock up splint See Rx Instructions .Route .MEDSUPPLY Qty: 1 0RF Rx Instructions: Wear on right wrist at night. Xarelto 20 mg tablet 20 mg PO DAILY Qty: 90 2RF Orencia ClickJect 125 mg/mL auto-injector 125 mg subcut QWEEK Qty: 4 1RF losartan 50 mg tablet 25 mg PO DAILY 90 Days Qty: 45 1RF acetaminophen [Mapap Arthritis Pain] 650 mg tablet extended release 650 mg PO Q8H PRN (Reason: pain) 30 Days Qty: 90 1RF lidocaine [Lidoderm] 5 % adhesive patch,medicated 1 patch topical DAILY MDD remove after 12 hours PRN (Reason: pain) Qty: 30 0RF Rx Instructions: leave on most painful area for up to 12 hrs omeprazole 20 mg capsule,delayed release(DR/EC) PO fluticasone furoate-vilanterol [Breo Ellipta] 200-25 mcg/dose blister with device 1 inh inhalation DAILY 30 Days Qty: 60 11RF albuterol sulfate 2.5 mg /3 mL (0.083 %) solution for nebulization 2.5 mg inhalation BID 30 Days Qty: 180 11RF budesonide 0.5 mg/2 mL suspension for nebulization 0.5 mg inhalation DAILY 30 Days Qty: 60 11RF ibuprofen 800 mg tablet 800 mg PO Q8H flecainide 100 mg tablet 100 mg PO Q12H
[2022-08-30 19:58] VITALS: BP 160/92; PULSE 82; RESP 18; O2SAT 96
--- NOTE | 2022-08-30 19:58 | PC.NURSE ---
patient states she feels better, she currently denies chest pain or discomfort. MD bedside now.
[2022-08-30] MEDS: oxyCODONE HCl Immed Release 5 MG TABLET PO (20:28)
== END 2022-08-30 20:35 | disposition home or self-care (01) ==
PROVIDERS: Emergency Provider Emergency Medicine; PCP Internal Medicine
DX: M25.511 Pain in right shoulder (principal); F41.0 Panic disorder [episodic paroxysmal anxiety]; Z20.822 Contact with and (suspected) exposure to COVID-19; I10 Essential (primary) hypertension; I48.0 Paroxysmal atrial fibrillation; E78.00 Pure hypercholesterolemia, unspecified; E66.9 Obesity, unspecified; Z68.36 Body mass index [BMI] 36.0-36.9, adult; Z86.73 Personal history of transient ischemic attack (TIA), and cerebral infarction without residual deficits; Z79.01 Long term (current) use of anticoagulants; Z79.899 Other long term (current) drug therapy; Z79.02 Long term (current) use of antithrombotics/antiplatelets; Z87.891 Personal history of nicotine dependence
CPT/HCPCS: 36415; 71045; 73030; 80048; 80076; 82803; 83605; 83735; 83880; 84484; 85025; 85379; 85610; 87040; 87635; 93005; 96372; 99284; J2250; J2270

== ENCOUNTER → 2022-10-27 14:34 | Outpatient (BNVA) | payer MEDICARE, MEDICAID, SELFPAY | PROVIDERS: PCP Internal Medicine; Visit Provider Nurse Practitioner Family | DX: M05.9 Rheumatoid arthritis with rheumatoid factor, unspecified (principal); R20.0 Anesthesia of skin; R20.2 Paresthesia of skin; Z79.899 Other long term (current) drug therapy | CPT/HCPCS: Q3014 ==

== ENCOUNTER → 2022-11-10 08:52 | Outpatient (BNVA) | payer MEDICARE, MEDICAID, SELFPAY | PROVIDERS: PCP Internal Medicine; Visit Provider Orthopaedic Surgery | DX: M25.511 Pain in right shoulder (principal) | CPT/HCPCS: 20610; 99212; J1100 ==

== ENCOUNTER → 2022-12-04 12:08 | Outpatient (BNVA) | payer MEDICARE, MEDICAID, SELFPAY | PROVIDERS: PCP Internal Medicine; Referring Provider Internal Medicine; Visit Provider Internal Medicine Cardiovascular Disease | DX: I48.0 Paroxysmal atrial fibrillation (principal); I50.30 Unspecified diastolic (congestive) heart failure | CPT/HCPCS: 93005; 99212 ==

== ENCOUNTER 2022-12-18 08:52 | Outpatient (REF) | payer OTHER, SELFPAY ==
--- NOTE | ~2022-12-18 | XR_ITS ---
EXAMINATION: XR CHEST CLINICAL INFORMATION: Pneumonia COMPARISON: 08/30/2022 TECHNIQUE: 2 views of the chest were obtained. FINDINGS: Left reverse total shoulder arthroplasty. The lungs are well expanded. There is no focal consolidation, edema, or effusion. Mild bronchial wall thickening. No pneumothorax. The cardiomediastinal silhouette is within normal limits. No acute osseous abnormality. XR/XR chest 2V IMPRESSION: No dense consolidation. Bronchial wall thickening can be seen with a small airways process such as asthma or atypical/viral infection.
== END 2022-12-18 08:53 | disposition home or self-care (01) ==
LOC: HO.XRAY 08:52
PROVIDERS: PCP Internal Medicine; Visit Provider Hospitalist
DX: J18.9 Pneumonia, unspecified organism (principal); G47.33 Obstructive sleep apnea (adult) (pediatric); Z99.89 Dependence on other enabling machines and devices; J45.909 Unspecified asthma, uncomplicated; M05.9 Rheumatoid arthritis with rheumatoid factor, unspecified; R20.0 Anesthesia of skin; R20.2 Paresthesia of skin; M81.0 Age-related osteoporosis without current pathological fracture
CPT/HCPCS: 71046; 94618; 99212

== ENCOUNTER 2022-12-29 09:06 | Outpatient (REF) | payer OTHER, SELFPAY ==
[2022-12-29 09:28] LABS: MANUAL DIFF FLAG NO
[2022-12-29 10:43] LABS: Basophils Absolute Auto 0.1 X10*3/uL (0.0-0.2); Basophils Percent Auto 1.1 % (0-2); Eosinophils Absolute Auto 0.1 X10*3/uL (0.0-0.4); Eosinophils Percent Auto 1.8 % (0-4); Hematocrit 42.3 % (37.0-47.0); Hemoglobin 13.1 g/dl (12.0-16.0); Imm Gran Abs Auto 0.03 X10*3/uL (0.00-0.03); Imm Gran Pct Auto 0.4 % (0.0-0.4); Lymphocytes Absolute Auto 2.1 X10*3/uL (1.2-4.9); Lymphocytes Percent Auto 27.9 % (20-40); Mean Corpuscular Hemoglobin 26.7 pg (27.0-33.0); Mean Corpuscular Volume 86.3 fL (80.0-98.0); Mean Platelet Volume 12.8 fL (9.4-12.3); Monocytes Absolute Auto 0.7 X10*3/uL (0.1-1.2); Monocytes Percent Auto 8.5 % (2-11); Neutrophils Absolute Auto 4.6 x10*3/uL (2.0-8.3); Neutrophils Percent Auto 60.3 % (45-73); Platelet Count 220 X10*3/uL (160-400); Red Cell Distribution Width 13.8 % (11.0-16.0); White Blood Count 7.6 X10*3/uL (4.8-10.8)
[2022-12-29 11:12] LABS: Alanine Aminotransferase 17 U/L (0-31); Albumin Level 3.9 g/dL (3.5-5.0); Alkaline Phosphatase 116 U/L (39-117); Anion Gap 16 (12-20); Aspartate Amino Transferase 19 U/L (5-31); Bilirubin Total 0.5 mg/dL (0.0-1.0); Blood Urea Nitrogen 11 mg/dL (9-16); Calcium 9.5 mg/dL (8.4-10.2); Carbon Dioxide 24 mmol/L (22-29); Chloride 109 mmol/L (96-108); Estimated Glomerular Filt Rate > 60; Glucose Random 81 mg/dL (60-115); Phosphorus 3.9 mg/dL (2.7-4.5); Potassium 4.5 mmol/L (3.3-5.1); Sodium 144 mmol/L (135-145); Total Protein 7.2 g/dL (6.5-8.0)
[2022-12-29 11:22] LABS: Erythrocyte Sedimentation Rate 58 MM/HR (0-20)
== END 2022-12-29 09:07 | disposition home or self-care (01) ==
LOC: HO.LAB 09:06
PROVIDERS: PCP Internal Medicine; Visit Provider Nurse Practitioner Family
DX: M06.9 Rheumatoid arthritis, unspecified (principal); M81.0 Age-related osteoporosis without current pathological fracture; Z79.899 Other long term (current) drug therapy
CPT/HCPCS: 36415; 80053; 84100; 85025; 85652; 86140

== ENCOUNTER → 2023-01-19 10:06 | Outpatient (BNVA) | payer OTHER, SELFPAY | PROVIDERS: PCP Internal Medicine; Visit Provider Nurse Practitioner Family ==

== ENCOUNTER 2023-02-09 09:00 | Outpatient (RCR) | payer OTHER, SELFPAY ==
--- NOTE | 2022-12-19 11:27 | MHC.PT.EP ---
[facility] [place] Office [place] Office [place] Office [address] Brittny Duque [address] [phone] F: [phone] F: [phone] F: [phone] F: [phone] Physical Therapy Plan of Care Date of Evaluation: Date of Surgery: N/A Diagnosis: pain in R shoulder (RC) Assessment: pt is a 67 y/o female presenting to physical therapy w/ referring diagnosis of M25.522 pain in right shoulder. pt presents w/ significant co-morbidities compounding to contribute to her R shoulder pain including CVA affecting R side, OP, and rheumatoid arthritis. From a postural perspective, she has significant anterior translation and internal rotation of the humeral head. This therapist appreciated some clicking of the shoulder w/ AROM movements most likely d/t poor humeral head posture. She also has severe carpal tunnel syndrome which contributes to poor shoulder posturing to relieve those symptoms. She has not tried OT and may benefit from a referral for splint and symptom management. Impairments include pain, decreased range of motion, decreased strength, impaired functional mobility, impaired postural awareness, and altered ambulation mechanics. pt is a good candidate for skilled PT due to age, potential remediation of impairments, typical disease/condition progression and prognosis, comorbidities, and motivation. pt would benefit from skilled PT intervention to provide a tailored strengthening and stretching exercise program, functional training, gait training, postural re-training, neuromuscular re-education, modalities as needed for pain, equipment safety demonstration. Frequency and Duration: The patient will be seen 2x/wk for 4 wks Short Term Goals: pt will be I w/ HEP to promote self-management of condition. pt will improve R shoulder flexion and abduction AROM by 10 degrees to promote ease in reaching for meal prep. 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 pt will improve R shoulder flexion strength to at least 3/5 to promote ease in ADLs. Treatment Plan: Modalities to reduce pain, spasms and effusion. Manual therapy to restore motion and function. Therapeutic exercise to improve strength and flexibility. Neuromuscular re-education for posture and balance. Therapeutic activities to return to functional activities of daily living. Electronically signed by: Maria Fernanda Boucher PT, DPT Please sign and return to therapist. Thank you for your referral.
--- NOTE | 2023-02-09 09:31 | MHC.PT.DC ---
[facility] [place] Office [place] Office [place] Office [address] Brittny Duque [address] [facility] [phone] F: [phone] F: [phone] F: [phone] F: [phone] Physical Therapy Discharge Report Diagnosis: pain in R shoulder (RC) Date of Surgery: N/A Date of Evaluation: 12/19/22 Date of Discharge: 02/09/23 Treatments to Date: 8 Cancellations to Date: 1 No Shows to Date: 0 Discharge Status: Recommend MD Follow-up Discharge Summary: The patient overall has made minimal progress in physical therapy at this time. Unfortunately, she has several comorbidities and factors compounding her right shoulder symptoms. When her shoulder is palpated with movement there is clunking and popping appreciated indicating the humerus is not sitting optimally in the glenoid. She continues to reported high pain intensities constantly. It has been difficult to progress her due to pain severity. She may be a candidate for occupational therapy to see if she can maximize her hand/wrist function. She did inform me she is supposed to be having carpal tunnel surgery to her right hand. Unfortunately, I cannot continue to recommend physical therapy at this time due to lack of progress. She is discharged from this physical therapy plan of care. Electronically signed by: Maria Fernanda Boucher PT, DPT Please sign and return to therapist. Thank you for your referral.
== END 2023-02-09 09:31 | disposition home or self-care (01) ==
LOC: HO.PT 09:00
PROVIDERS: PCP Internal Medicine; Visit Provider Internal Medicine
DX: M25.511 Pain in right shoulder (principal)
CPT/HCPCS: 97110; 97112; 97140; 97163

== ENCOUNTER 2023-03-12 08:50 | Outpatient (REF) | payer OTHER, SELFPAY ==
--- NOTE | ~2023-03-12 | MM_ITS ---
EXAMINATION: MM SCREENING DIGITAL BREAST TOMOSYNTHESIS, BILATERAL CLINICAL INFORMATION: Screening. Asymptomatic. The lifetime risk of breast cancer based on the Tyrer-Cuzick Model is 5%. COMPARISON: Mammography: 02/09/2021 (new baseline) TECHNIQUE: Digital breast tomosynthesis is performed in both the craniocaudal and mediolateral oblique views along with computer-aided detection (CAD). Synthesized 2D images are generated from the tomosynthesis. FINDINGS: There are scattered areas of fibroglandular density (ACR BI-RADS breast composition Category b). There are no significant masses, abnormal calcifications, or other abnormalities. Parenchymal pattern is similar to prior studies. There is no developing density or architectural abnormality. The axilla and skin contours are unremarkable. No significant changes. MM/MM tomosynthesis screening BI IMPRESSION: No mammographic evidence of malignancy. ASSESSMENT: BI-RADS 1: Negative RECOMMENDATION: Routine annual mammography screening. This patient's information was entered into a reminder system with a target due date for their next mammogram.
== END 2023-03-12 08:51 | disposition home or self-care (01) ==
LOC: HO.MAMMO 08:50
PROVIDERS: PCP Internal Medicine; Visit Provider Internal Medicine
DX: Z12.31 Encounter for screening mammogram for malignant neoplasm of breast (principal)
CPT/HCPCS: 77063; 77067

== ENCOUNTER → 2023-03-14 09:49 | Outpatient (BNVA) | payer OTHER, MEDICAID, SELFPAY | PROVIDERS: PCP Internal Medicine; Visit Provider Orthopaedic Surgery | DX: G56.01 Carpal tunnel syndrome, right upper limb (principal); G56.21 Lesion of ulnar nerve, right upper limb | CPT/HCPCS: 99212 ==

== ENCOUNTER → 2023-03-28 08:54 | Outpatient (BNVA) | payer OTHER, MEDICAID, SELFPAY | PROVIDERS: PCP Internal Medicine; Visit Provider Nurse Practitioner Family | DX: M05.9 Rheumatoid arthritis with rheumatoid factor, unspecified (principal); R20.0 Anesthesia of skin; R20.2 Paresthesia of skin; M81.0 Age-related osteoporosis without current pathological fracture; Z79.899 Other long term (current) drug therapy | CPT/HCPCS: 99212 ==

== ENCOUNTER 2023-03-29 07:02 | Day surgery (SDC) | payer OTHER, MEDICAID, SELFPAY ==
--- NOTE | 2023-03-13 14:15 | P.CONAN_ITS ---
Documented by User: Ariana Beltrán NP 03/28/23 08:29 HPI - Anesthesia Eval Consult details Narrative: 68yo F for Right Carpal Tunnel Release, Cubital Tunnel Release vs Transposition, 03/29/23 Medically cleared Cardiac cleared Pulmo optimized Xarelto for afib Prednisone 2.5mg daily for RA PMFSH Active Problems Active Problems: All Active Problems (Updated 01/30/23 @ 14:10 by Dafne Pollard MD) Left shoulder pain (Acute) Right wrist pain (Acute) Osteoporosis (Acute) Mild recurrent major depression (Acute) Right shoulder pain (Acute) Pre-op chest exam (Acute) Osteoarthritis of shoulders, bilateral (Acute) Obesity (BMI 30-39.9) (Acute) Preoperative clearance (Acute) Cubital tunnel syndrome on right (Acute) Carpal tunnel syndrome of right wrist (Acute) Asthma-COPD overlap syndrome (Acute) Abnormal chest x-ray (Acute) History of CVA (cerebrovascular accident) (Acute ~2017) Right hemiplegia (Acute ~2017) Diastolic heart failure (Acute) Diastolic dysfunction (Acute) Paroxysmal atrial fibrillation (Acute ~2017) Chronic anticoagulation (Acute) Mobitz I (Acute) Essential hypertension (Acute) Pure hypercholesterolemia (Acute) ILD (interstitial lung disease) (Acute) Pneumonitis (Acute) Hypoxia (Acute) Obstructive sleep apnea on CPAP (Acute) Personal history of nicotine dependence (Acute) GERD (gastroesophageal reflux disease) (Acute) Rheumatoid arthritis (Acute) assisted methotrexate user (Acute) Obesity (Acute) Breast pain, left (Acute) Post-menopausal (Acute) Past Medical History Medical History Abnormal chest x-ray Asthma-COPD overlap syndrome Breast pain, left Chronic anticoagulation Diastolic dysfunction Essential hypertension GERD (gastroesophageal reflux disease) History of CVA (cerebrovascular accident) (~2017) Hypoxia ILD (interstitial lung disease) Obesity Obstructive sleep apnea on CPAP Osteoarthritis of shoulders, bilateral Paroxysmal atrial fibrillation (~2017) Personal history of nicotine dependence Pneumonitis Post-menopausal Pre-op chest exam Pure hypercholesterolemia Rheumatoid arthritis Right hemiplegia (~2017) Seropositive rheumatoid arthritis Family History Family History Father No problems noted. Mother No problems noted. Brother Stomach cancer Surgical History Surgical History History of appendectomy History of foot surgery History of shoulder surgery Social History Social History Household Members: None Housing: House Do you presently have visiting nurse or other home services: No Alcohol intake: current Alcohol intake frequency: holidays/special occasions only Alcohol type: beer Patient Tobacco Use Status: Former Tobacco user Quit Date: 6 yrs ago Tobacco use type: Cigarette Years Smoked: 20 years e-Cigarette/Vaping Use: Never Used Second Hand Smoke Exposure: No Use of substances other than those prescribed or required for medical reasons: No Are you DNR?: No Advance Directives: No Advance Directives Information Provided: Yes service: No Current occupational status: retired Cognitive needs: No Hearing needs: No Vision needs: No Meds Allergies Allergy/AdvReac Type Severity Reaction Status Date / Time No Known Allergies Allergy Verified 03/28/23 10:22 [No Known Allergies*] Home Medications Medication Instructions Recorded Confirmed Last Taken Type prednisone 5 mg tablet See Rx Instructions PO DAILY 03/28/23 03/29/23 03/29/23 07:00 History abatacept 125 mg/mL subcutaneous 125 mg subcut QWEEK 03/29/23 03/29/23 Unknown History syringe (Orencia) Exam Exam Date and Time: March 13, 2023 1415 Pertinent Lab Results Pertinent Lab Results: Laboratory Tests 12/29/22 12/29/22 09:27 09:27 WBC 7.6 Hgb 13.1 Hct 42.3 Plt Count 220 Sodium 144 Potassium 4.5 Chloride 109 H Carbon Dioxide 24 BUN 11 Creatinine 0.77 Narrative Narrative: EKG 11/2022 sinus bradycardia at 55 beats per minute with normal axis and normal intervals ECHO 08/2022 1. technically difficult study with suboptimal views 2. Endocardial borders are limited in some views; therefore wall motion abnormalities cannot be accurately determined. 3. LV size is normal 4. Overall LV systolic function is normal with an EF 60-65% 5. Grade 2 DD with elevated LA pressure Assessment and Plan Assessment Anesthesia Assessment: Chart Reviewed Documented by User: Kaylie Cowan MD 03/29/23 11:09 [facility] Past Medical History Medical History Abnormal chest x-ray Asthma-COPD overlap syndrome Breast pain, left Chronic anticoagulation Diastolic dysfunction Essential hypertension GERD (gastroesophageal reflux disease) History of CVA (cerebrovascular accident) (~2016) Hypoxia ILD (interstitial lung disease) Obesity Obstructive sleep apnea on CPAP Osteoarthritis of shoulders, bilateral Paroxysmal atrial fibrillation (~2016) Personal history of nicotine dependence Pneumonitis Post-menopausal Pre-op chest exam Pure hypercholesterolemia Rheumatoid arthritis Right hemiplegia (~2016) Seropositive rheumatoid arthritis Family History Family History Father No problems noted. Mother No problems noted. Brother Stomach cancer Family history of problems with anesthesia: No Surgical History Surgical History History of appendectomy History of foot surgery History of shoulder surgery History of Problems with Anesthesia: No Social History Social History Household Members: None Housing: House Do you presently have visiting nurse or other home services: No Alcohol intake: current Alcohol intake frequency: holidays/special occasions only Alcohol type: beer Patient Tobacco Use Status: Former Tobacco user Quit Date: 6 yrs ago Tobacco use type: Cigarette Years Smoked: 20 years e-Cigarette/Vaping Use: Never Used Second Hand Smoke Exposure: No Use of substances other than those prescribed or required for medical reasons: No Are you DNR?: No Advance Directives: No Advance Directives Information Provided: Yes service: No Current occupational status: retired Cognitive needs: No Hearing needs: No Vision needs: No Meds Allergies Allergy/AdvReac Type Severity Reaction Status Date / Time No Known Allergies Allergy Verified 03/28/23 10:22 [No Known Allergies*] Home Medications Medication Instructions Recorded Confirmed Last Taken Type prednisone 5 mg tablet See Rx Instructions PO DAILY 03/28/23 03/29/23 03/29/23 07:00 History abatacept 125 mg/mL subcutaneous 125 mg subcut QWEEK 05/18/23 05/18/23 Unknown History syringe (Orencia) Exam Airway Mallampati Class: II TM Dist: >3cm Neck ROM: Full Heart: rrr Lungs: diminished sounds , wheezing on exertion Assessment and Plan Assessment Anesthesia Assessment: Anesthesia Plan Discussed Final Anesthetic Review Family History of Problems with Anesthesia: No History of Problems with Anesthesia: No NPO: Yes ASA Class: III Final Preanesthetic Review: No Changes in Pt Med Stat, Meds/Allgs Chart Reviewed, Consent Obtained/Reviewed and Anes Risks/Benef Reviewed Patient Risk: Intermediate Procedure Risk: Low Anesthetic Plan Anesthetic Plan: Regional Block Disposition: Standard PACU
[2023-03-27 10:19] VITALS: BMI 35.5
[2023-03-29 07:57] VITALS: BMI 35.5
[2023-03-29 08:36] VITALS: BP 144/73; PULSE 57; RESP 17; TEMP 35.7; O2SAT 95
[2023-03-29] MEDS: Lactated Ringers 1,000 ML 50 ML IVCONT (08:40)
--- NOTE | 2023-03-29 10:50 | MHC.SHP ---
Pre-Procedural Eval Section A Date of Service: 03/29/23 The patient is an INPATIENT: No Changes since office visit: No Cold of Flu in the past 2 weeks, No New Medical Problems, No Changes in Medication and No Patient answered all questions The History & Physical has been completed within 30 days and I have reviewed it.: Yes Section B Chief Complaint: Carpal tunnel right Lesion of ulnar nerve Allergies: Allergies Allergy/AdvReac Type Severity Reaction Status Date / Time No Known Allergies Allergy Verified 03/28/23 10:22 [No Known Allergies*] Plan I have reviewed the history and physical and performed a pertinent physical examination on my patient. No changes have occurred unless specified. Time Spent With Patient Time: Total time managing care of this patient today ____ minutes.
--- NOTE | 2023-03-29 10:51 | W.PM.OPN ---
Operative Note Operative Note Date of Service: 03/29/23 Narrative: Operative Note Narrative: Preop diagnosis: 1. Right Cubital tunnel syndrome 2. Right carpal tunnel syndrome Postop diagnosis: Same Procedure: 1. Right Cubital Tunnel Release 2. Right carpal tunnel release Surgeon: Elena Madrigal MD Anesthesia: regional block by Anesthesia Findings: Thickening and fibrosis about the ulnar nerve at the cubital tunnel Implants: none Tourniquet time: 10 minutes plus 9 minutes = 19 minutes EBL: 5.0 ml Specimen: none Drains: None Complications: None Disposition: Brought to the recovery room in stable condition Plan: Follow-up in 10-14 days for wound check, and suture removal Indications: The patient is 68 years old with right cubital and carpal tunnel syndrome . The risks and benefits of operative treatment, including but not limited to risk of damage to blood vessels, nerves, tendons, infection, recurrence, persistent pain or numbness, incomplete resolution of preoperative symptoms, or need for further surgery were discussed with the patient and they wished to proceed with surgery. Procedure: Once consent was obtained patient was brought back to the operating suite and placed in the operating table in a supine position. patient has a significant pulmonary disease. Perioperative antibiotics and a regional block and anesthesia was administered by the anesthesia team. The limb was prepped and draped in a standard surgical fashion, and a sterile tourniquet applied to the proximal aspect of the Right upper extremity. The limb was elevated exsanguinated with Esmarch bandage and the tourniquet inflated to 250 mm of mercury for a total tourniquet time of 19 minutes. Once assured that we had a good block, a 2.0 cm longitudinal incision was made centered over the right carpal tunnel. The incision was made through the skin to the subcutaneous tissues using a #15 blade. Dissection was made down to the level of the transverse carpal ligament with care being taken to protect the palmar cutaneous nerve. Once the transverse carpal ligament was clearly visualized, a longitudinal incision was made in the transverse carpal ligament 1st using a #15 blade, then using tenotomy scissors under direct visualization. Care was taken to look for and protect the motor branch of the median nerve when seen in this area. Once satisfied with our carpal tunnel release the wound was irrigated with normal saline. A 6 cm gently curved but longitudinally oriented incision was made centered over the cubital tunnel of the right upper extremity. Incision was made through the skin to the subcutaneous tissues using a # 15 Blade. I then dissected down to the level of the medial epicondyle and the cubital tunnel using tenotomy scissors. Care was taken to protect the lateral antebrachial cutaneous nerve. The ulnar nerve was identified just posterior to the medial intermuscular septum. The ulnar nerve was released in a proximal to distal direction using tenotomy in iris scissors while directly visualizing and protecting the ulnar nerve. Thickening and fibrosis was appreciated about the ulnar nerve as it passed through the cubital tunnel. The ulnar nerve was assessed as I passed the elbow through full flexion and extension and was found to remain stable within its groove. At this point the tourniquet was deflated and hemostasis obtained with a brief period of local pressure and bipolar electrocautery. The wound was copiously irrigated with normal saline. The subcutaneous layer was closed with 4-0 Vicryl suture, and the skin edges were reapproximated with 5-0 nylon suture. The wound was infiltrated with some 0.25% plain Marcaine for postop pain control and sterile dressings and a posterior splint was applied. The patient appears to have tolerated the procedure well and with no complications. All digits were well vascularized conclusion of the case.
[2023-03-29 12:18] VITALS: BP 145/91; PULSE 62; RESP 18; TEMP 36.1; O2SAT 93
[2023-03-29 12:33] VITALS: BP 147/78; PULSE 57; RESP 18; TEMP 36.1; O2SAT 97
== END 2023-03-29 13:05 | disposition home or self-care (01) ==
PROVIDERS: PCP Internal Medicine; Visit Provider Orthopaedic Surgery
PROC: (CPT 64721; principal; 2023-03-29 09:00)
PROC: (CPT 64718; 2023-03-29 09:00)
DX: G56.01 Carpal tunnel syndrome, right upper limb (principal); G56.21 Lesion of ulnar nerve, right upper limb; R20.0 Anesthesia of skin; R20.2 Paresthesia of skin; I11.0 Hypertensive heart disease with heart failure; I50.32 Chronic diastolic (congestive) heart failure; I48.0 Paroxysmal atrial fibrillation; E78.00 Pure hypercholesterolemia, unspecified; M05.9 Rheumatoid arthritis with rheumatoid factor, unspecified; J44.9 Chronic obstructive pulmonary disease, unspecified; G47.33 Obstructive sleep apnea (adult) (pediatric); E66.9 Obesity, unspecified; Z68.37 Body mass index [BMI] 37.0-37.9, adult; Z86.73 Personal history of transient ischemic attack (TIA), and cerebral infarction without residual deficits; Z79.01 Long term (current) use of anticoagulants; Z79.620 Long term (current) use of immunosuppressive biologic; Z79.899 Other long term (current) drug therapy; Z99.89 Dependence on other enabling machines and devices; Z87.891 Personal history of nicotine dependence
CPT/HCPCS: 64721; 64718; J0131; J0690; J2250; J2795

== ENCOUNTER → 2023-04-11 13:01 | Outpatient (BNVA) | payer OTHER, MEDICAID, SELFPAY | PROVIDERS: PCP Internal Medicine; Visit Provider Orthopaedic Surgery | DX: G56.01 Carpal tunnel syndrome, right upper limb (principal); G56.21 Lesion of ulnar nerve, right upper limb | CPT/HCPCS: 99212 ==

== ENCOUNTER 2023-05-28 10:28 | Outpatient (AMB) | payer OTHER, MEDICAID, SELFPAY ==
--- NOTE | 2023-05-28 10:44 | A.OFFVIS_ITS ---
Intake Vital Signs 05/28/23 10:45 Height 4 ft 11 in Weight 171 lb 15.369 oz BMI 34.7 BP 108/74 Blood Pressure Location Lt brachial Position Sitting Pulse 60 Intake Visit Reasons: 6 MON FUP Intake Note: 6 month follow-up feeling ok Card Decorator Required: Yes Card Decorator Name: Nik guerrero Allergies No Known Allergies [No Known Allergies*] Allergy (Verified 04/11/23 13:32) Medication List - Last Reconciled 05/28/23 by Noah Montoya MD abatacept (Orencia ClickJect) 125 mg subcut QWEEK acetaminophen ER (Mapap Arthritis Pain) 650 mg PO Q8H PRN 30 days albuterol sulfate 2.5 mg (3 mL) inhalation BID 30 days atenolol 25 mg PO DAILY 90 days atorvastatin 40 mg PO DAILY 90 days budesonide 0.5 mg (2 mL) inhalation DAILY 30 days [Cock up splint Wear on right wrist at night. ] flecainide 100 mg PO Q12H 90 days gabapentin 600 mg PO TID 90 days losartan 100 mg PO DAILY 90 days omeprazole 20 mg PO DAILY PRN 90 days oxycodone 5 mg PO Q6H PRN prednisone 1/2 tab every other day orally; rivaroxaban (Xarelto) 20 mg PO DAILY HPI HPI Comments History of Present Illness Details Leeanne comes for follow-up. She has been doing well from cardiac perspective. History was obtained with help of visitor information assistant. She has not had any significant worsening cardiac symptoms. No prolonged irregular heartbeat or palpitation. She occasionally gets palpitation but last only for few seconds. She denies any lightheadedness, syncope. No bleeding issues or neurologic events. No worsening respiratory symptoms with no orthopnea, PND, leg edema. Takes all her medications regularly. [facility] Medical History Abnormal chest x-ray Asthma-COPD overlap syndrome Breast pain, left Chronic anticoagulation Diastolic dysfunction Essential hypertension GERD (gastroesophageal reflux disease) History of CVA (cerebrovascular accident) (~2017) Hypoxia ILD (interstitial lung disease) Obesity Obstructive sleep apnea on CPAP Osteoarthritis of shoulders, bilateral Paroxysmal atrial fibrillation (~2017) Personal history of nicotine dependence Pneumonitis Post-menopausal Pre-op chest exam Pure hypercholesterolemia Rheumatoid arthritis Right hemiplegia (~2016) Seropositive rheumatoid arthritis Surgical History History of appendectomy History of foot surgery History of shoulder surgery Family History Father No problems noted. Mother No problems noted. Brother Stomach cancer Social History Household Members: None Housing: House Do you presently have visiting nurse or other home services: No Alcohol intake: current Alcohol intake frequency: holidays/special occasions only Alcohol type: beer Patient Tobacco Use Status: Former Tobacco user Quit Date: 6 yrs ago Tobacco use type: Cigarette Years Smoked: 20 years e-Cigarette/Vaping Use: Never Used Second Hand Smoke Exposure: No service: No Current occupational status: retired Cognitive needs: No Hearing needs: No Vision needs: No Review of Systems Const Denies chills, Denies fatigue, Denies fever(s), Denies frequent falls, Denies weakness, Denies weight gain and Denies weight loss ENT Denies dizziness Card Denies chest pain, Denies leg edema, Denies lightheadedness, Denies palpitations, Denies dyspnea, Denies dyspnea on exertion, Denies orthopnea and Denies other (loss of consciousness) Resp Denies cough, Denies dyspnea and Denies dyspnea on exertion GI Denies hematochezia and Denies change in stool character Musc Denies abnormal gait, Denies muscle weakness, Denies numbness, Denies radiating pain into limb and Denies tingling Neuro Denies abnormal gait, Denies dizziness, Denies frequent falls, Denies numbness, Denies tingling and Denies weakness Endo Denies fatigue and Denies palpitations Physical Exam Vital Signs: Last Vital Signs Pulse 60 05/28/23 10:45 BP 108/74 05/28/23 10:45 BMI result Body Mass Index 34.7 Const General: cooperative, comfortable, no acute distress, alert and awake Nutritional Appearance: obese Orientation/consciousness: patient oriented x3 Limitations: no limitations Neck Neck: Yes trachea midline, Yes supple and Yes no JVD Resp Effort & Inspection: normal respiratory effort Auscultation: clear to auscultation bilaterally and diminished lung sounds Cardio Jugular venous distension: no JVD Palpation: normal PMI Rate: regular rate Rhythm: regular rhythm Heart sounds: S1 normal heart sound present, S2 normal heart sound present, no click, no gallops, no murmurs, no rubs and Other heart sounds present (S4 present) GI Auscultation: normal bowel sounds Neuro General: patient oriented x3 and no focal motor deficits Office Procedures EKG Details: EKG shows normal sinus rhythm with normal EKG [id number], Complete Assessment & Plan Assessment & Plan (1) Paroxysmal atrial fibrillation: Onset Date: ~2016 Comment: (Dx 08/2017) Code(s): I48.0 - Paroxysmal atrial fibrillation Plan: Paroxysmal atrial fibrillation which has done extremely well with rhythm control approach. Currently suppressive flecainide therapy. Continue rhythm control approach. Continue flecainide therapy. Require concomitant rate slowing medications which should continue. Continue full oral anticoagulation, currently on Xarelto 20 mg daily. High risk for recurrent CVA. Continue to follow renal function every 6 months and CBC every 12 months. Continue aggressive weight loss program. Continue CPAP therapy. Continue aggressive control blood pressure which is currently well optimized. (2) Diastolic heart failure: Code(s): I50.30 - Unspecified diastolic (congestive) heart failure Plan: Prior history of diastolic heart failure with preserved ejection fraction setting of atrial fibrillation. Done well with rhythm control approach will continue pursue rhythm control approach. Continue aggressive management of blood pressure. Continue CPAP therapy. Currently not on any diuretics. Will follow up in the clinic in 6 months time after an echocardiogram. Thank you for allowing me to partake in her care Orders: Orders Basic Metabolic Panel Today I48.0 - Paroxysmal atrial fibrillation Coding Level of Care Code Est Pt Level 4 (37544) Diagnoses Paroxysmal atrial fibrillation I48.0 Diastolic heart failure I50.30 CPT Codes EKG - CPT: 27474-[id number], Complete ([id number])
[2023-05-28 10:45] VITALS: BP 108/74; PULSE 60; BMI 34.7
== END 2023-05-28 11:11 | disposition home or self-care (01) ==
PROVIDERS: Visit Provider Internal Medicine Cardiovascular Disease
DX: I48.0 Paroxysmal atrial fibrillation (principal); I50.30 Unspecified diastolic (congestive) heart failure
CPT/HCPCS: 93010; 99214

== ENCOUNTER 2023-05-28 10:28 | Outpatient (REF) | payer OTHER, SELFPAY ==
[2023-05-28 13:57] LABS: Anion Gap 16 (12-20); Blood Urea Nitrogen 12 mg/dL (9-16); Calcium 9.6 mg/dL (8.4-10.2); Carbon Dioxide 23 mmol/L (22-29); Chloride 109 mmol/L (96-108); Estimated Glomerular Filt Rate > 60; Glucose Random 81 mg/dL (60-115); Potassium 4.6 mmol/L (3.3-5.1); Sodium 143 mmol/L (135-145)
== END 2023-05-28 10:29 | disposition home or self-care (01) ==
LOC: HO.LAB 10:28
PROVIDERS: Visit Provider Internal Medicine Cardiovascular Disease
DX: I48.0 Paroxysmal atrial fibrillation (principal); I50.30 Unspecified diastolic (congestive) heart failure
CPT/HCPCS: 36415; 80048; 93005; 99212

== ENCOUNTER 2023-06-04 13:28 | Outpatient (AMB) | payer OTHER, SELFPAY ==
--- NOTE | 2023-06-04 13:30 | MHC.PC.OV ---
Vital Signs 06/04/23 13:32 06/04/23 13:58 Height 4 ft 11 in Weight 172 lb BMI 34.7 BP 140/86 H 138/80 Blood Pressure Location Lt brachial Lt brachial Position Sitting Sitting Intake Visit Reasons: bp Intake Note: Patient here for a follow up BP Actuarial Clerk Required: No Accompanied by: Self / Same As Patient Allergies No Known Allergies [No Known Allergies*] Allergy (Verified 06/04/23 13:41) Medication List - Last Reconciled 06/04/23 by Dafne Pollard MD abatacept (Orencia ClickJect) 125 mg subcut QWEEK acetaminophen ER (Mapap Arthritis Pain) 650 mg PO Q8H PRN 30 days albuterol sulfate 2.5 mg (3 mL) inhalation BID 30 days atenolol 25 mg PO DAILY 90 days atorvastatin 40 mg PO DAILY 90 days budesonide 0.5 mg (2 mL) inhalation DAILY 30 days [Cock up splint Wear on right wrist at night. ] flecainide 100 mg PO Q12H 90 days gabapentin 600 mg PO TID 90 days losartan 100 mg PO DAILY 90 days omeprazole 20 mg PO DAILY PRN 90 days prednisone 1/2 tab every other day orally; rivaroxaban (Xarelto) 20 mg PO DAILY Tobacco use date assessed: 11/21/22 Fall risk assessment: No Falls in past year Last assessed Fall Risk: 06/04/23 Dental Screening Dental Screen Date: 06/04/23 Did you have a dental visit in the last 12 months?: Yes Did you have a dental problem in the last 6 months where you did not have access to dental care?: No Was dental information given to patient?: Patient has dentist HPI HPI Comments History of Present Illness Details This is a 68-year-old female with hypertension, pure hypercholesterolemia, asthma-COPD overlap syndrome and atrial fibrillation that comes today for follow-up on her conditions. Blood pressure borderline stable. Lipid panel will be order. She use rescue inhaler once a month for her asthma-COPD overlap syndrome and is follow by pulmonology. On chronic anticoagulation for atrial fibrillation and denies any palpitations. No chest pain or shortness of breath. She also has rheumatoid arthritis and complains of diffuse joint pain and this is follow by Rheumatology. [facility] Medical History Abnormal chest x-ray Asthma-COPD overlap syndrome Breast pain, left Chronic anticoagulation Diastolic dysfunction Essential hypertension GERD (gastroesophageal reflux disease) History of CVA (cerebrovascular accident) (~2017) Hypoxia ILD (interstitial lung disease) Obesity Obstructive sleep apnea on CPAP Osteoarthritis of shoulders, bilateral Paroxysmal atrial fibrillation (~2017) Personal history of nicotine dependence Pneumonitis Post-menopausal Pre-op chest exam Pure hypercholesterolemia Rheumatoid arthritis Right hemiplegia (~2017) Seropositive rheumatoid arthritis Surgical History History of appendectomy History of foot surgery History of shoulder surgery Family History Father No problems noted. Mother No problems noted. Brother Stomach cancer Social History Household Members: None Housing: House Do you presently have visiting nurse or other home services: No Alcohol intake: current Alcohol intake frequency: holidays/special occasions only Alcohol type: beer Patient Tobacco Use Status: Former Tobacco user Quit Date: 6 yrs ago Tobacco use type: Cigarette Years Smoked: 20 years e-Cigarette/Vaping Use: Never Used Second Hand Smoke Exposure: No service: No Current occupational status: retired Cognitive needs: No Hearing needs: No Vision needs: No Questionnaire Thrive Questionnaire Date Thrive assessed: 11/21/22 GENNY-7 AMB Questionnaire GENNY-7 Date GENNY - 7 assessed: 11/21/22 Source: Developed by Drs. Kai Mejia, Jade Cheng, Neil Gannon and colleagues, with an educational phil from [employer]. Review of Systems Const All systems reviewed & are unremarkable except as noted in HPI and below Eyes Reports no additional complaints, Denies change in vision and Denies other visual disturbances Card Denies chest pain at rest, Denies chest pain with activity, Denies edema, Denies irregular heart rhythm, Denies claudication, Denies dyspnea, Denies dyspnea on exertion, Denies orthopnea, Denies paroxysmal nocturnal dyspnea and Denies slow heart rate Resp Denies cough, Denies dyspnea and Denies dyspnea on exertion GI Denies abdominal pain, Denies change in bowel habits, Denies excessive flatus, Denies nausea and Denies vomiting Denies urinary incontinence, Denies urinary hesitancy and Denies urinary urgency Musc Denies abnormal gait, Denies atrophy, Denies deformity and Denies limited range of motion Skin/Breast Denies bleeding lesions, Denies changing lesions and Denies rash Neuro Denies abnormal gait and Denies lack of coordination Physical exam (Primary Care) Vital Signs: Last Vital Signs BP 140/86 H 06/04/23 13:32 BMI result Body Mass Index 34.7 Tobacco/Smoking Status: Tobacco use Status Tobacco use date assessed 11/21/22 06/04/23 13:36 Patient Tobacco Use Status Former Tobacco user 06/04/23 13:36 Tobacco use type Cigarette 06/04/23 13:36 e-Cigarette/Vaping Use Never Used 06/04/23 13:36 Thrive Assessment: Date of Thrive Assessment Date Thrive assessed 11/21/22 06/04/23 13:36 Eyes General: appearance normal, both eyes and all related structures Eyelids: Yes eyelids normal Conjunctivae: conjunctivae normal Neck Neck: Yes normal visual inspection and Yes supple Resp Effort & Inspection: normal respiratory effort Auscultation: clear to auscultation bilaterally Cardio Jugular venous distension: no JVD Rate: regular rate Rhythm: regular rhythm Heart sounds: S1 normal heart sound present and S2 normal heart sound present Extrem General: Yes full ROM Assessment and Plan Assessment & Plan (1) Asthma-COPD overlap syndrome: Code(s): J44.9 - Chronic obstructive pulmonary disease, unspecified Plan: Continue budesonide. Follow-up with pulmonology (2) Paroxysmal atrial fibrillation: Onset Date: ~2016 Comment: (Dx 08/2017) Code(s): I48.0 - Paroxysmal atrial fibrillation Plan: Continue flecainide and Xarelto. (3) Essential hypertension: Code(s): I10 - Essential (primary) hypertension Plan: Continue losartan. Blood pressure goal is equal or less than 130/80 (4) Pure hypercholesterolemia: Code(s): E78.00 - Pure hypercholesterolemia, unspecified Plan: Continue statins. Repeat lipid panel. (5) Rheumatoid arthritis: Code(s): M06.9 - Rheumatoid arthritis, unspecified Qualifiers: Rheumatoid arthritis location: multiple sites Rheumatoid factor presence: with rheumatoid factor Qualified Code(s): M05.79 - Rheumatoid arthritis with rheumatoid factor of multiple sites without organ or systems involvement Plan: Continue Orencia. Follow-up with rheumatology. Orders: Orders Comprehensive [place]. Panel Fast 4 Months I50.30 - Unspecified diastolic (congestive) heart failure Lipid Panel 4 Months E78.5 - Hyperlipidemia, unspecified NT-proBNP 4 Months I50.30 - Unspecified diastolic (congestive) heart failure Coding Level of Care Code Est Pt Level 4 (99320) Diagnoses Asthma-COPD overlap syndrome J44.9 Paroxysmal atrial fibrillation I48.0 Essential hypertension I10 Pure hypercholesterolemia E78.00 Rheumatoid arthritis M05.79 Rheumatoid arthritis location: multiple sites Rheumatoid factor presence: with rheumatoid factor Time Spent (min) 22
[2023-06-04 13:32] VITALS: BP 140/86; BMI 34.7
[2023-06-04 13:58] VITALS: BP 138/80
== END 2023-06-04 13:58 | disposition home or self-care (01) ==
PROVIDERS: Visit Provider Internal Medicine
DX: J44.9 Chronic obstructive pulmonary disease, unspecified (principal); I48.0 Paroxysmal atrial fibrillation; I10 Essential (primary) hypertension; M05.79 Rheumatoid arthritis with rheumatoid factor of multiple sites without organ or systems involvement; E78.00 Pure hypercholesterolemia, unspecified
CPT/HCPCS: 99214

== ENCOUNTER 2023-06-26 10:44 | Outpatient (REF) | payer OTHER, SELFPAY ==
[2023-06-26 11:05] LABS: MANUAL DIFF FLAG NO
[2023-06-26 11:50] LABS: Basophils Absolute Auto 0.1 X10*3/uL (0.0-0.2); Basophils Percent Auto 0.7 % (0-2); Eosinophils Absolute Auto 0.1 X10*3/uL (0.0-0.4); Eosinophils Percent Auto 1.9 % (0-4); Hematocrit 42.8 % (37.0-47.0); Hemoglobin 13.1 g/dl (12.0-16.0); Imm Gran Abs Auto 0.02 X10*3/uL (0.00-0.03); Imm Gran Pct Auto 0.3 % (0.0-0.4); Lymphocytes Absolute Auto 1.3 X10*3/uL (1.2-4.9); Lymphocytes Percent Auto 19.2 % (20-40); Mean Corpuscular HGB Conc 30.6 g/dl (31.0-35.0); Mean Corpuscular Hemoglobin 26.9 pg (27.0-33.0); Mean Corpuscular Volume 87.9 fL (80.0-98.0); Monocytes Absolute Auto 0.4 X10*3/uL (0.1-1.2); Monocytes Percent Auto 5.8 % (2-11); Neutrophils Absolute Auto 4.9 x10*3/uL (2.0-8.3); Neutrophils Percent Auto 72.1 % (45-73); Platelet Count 184 X10*3/uL (160-400); Red Blood Count 4.87 X10*6/uL (4.20-5.50); Red Cell Distribution Width 14.2 % (11.0-16.0); White Blood Count 6.8 X10*3/uL (4.8-10.8)
[2023-06-26 12:25] LABS: Alanine Aminotransferase 17 U/L (0-31); Albumin Level 3.7 g/dL (3.5-5.0); Alkaline Phosphatase 67 U/L (39-117); Anion Gap 12 (12-20); Aspartate Amino Transferase 20 U/L (5-31); Bilirubin Total 0.4 mg/dL (0.0-1.0); Blood Urea Nitrogen 10 mg/dL (9-16); C Reactive Protein 0.56 mg/dL (< or = 0.50); Calcium 9.1 mg/dL (8.4-10.2); Carbon Dioxide 22 mmol/L (22-29); Chloride 110 mmol/L (96-108); Estimated Glomerular Filt Rate > 60; Glucose Random 120 mg/dL (60-115); Sodium 140 mmol/L (135-145); Total Protein 7.6 g/dL (6.5-8.0)
[2023-06-26 12:37] LABS: Erythrocyte Sedimentation Rate 59 MM/HR (0-20)
[2023-06-26 12:42] LABS: Vitamin D 25-OH Total 44.5 ng/mL (>30)
== END 2023-06-26 10:45 | disposition home or self-care (01) ==
LOC: HO.LAB 10:44
PROVIDERS: PCP Internal Medicine; Visit Provider Nurse Practitioner Family
DX: M06.9 Rheumatoid arthritis, unspecified (principal); M81.0 Age-related osteoporosis without current pathological fracture
CPT/HCPCS: 36415; 80053; 82306; 85025; 85652; 86140

== ENCOUNTER 2023-06-28 09:01 | Outpatient (AMB) | payer OTHER, MEDICAID, SELFPAY ==
--- NOTE | 2023-06-28 09:29 | A.OFFVIS_ITS ---
Intake Vital Signs 06/28/23 09:31 Height 4 ft 11 in Weight 172 lb 2.896 oz BMI 34.8 Temp 97 F Temp Source Skin Intake Visit Reasons: Rheumatoid arthritis Intake Note: Here for RA follow up. c/o geneva knee swelling, left index swelling, geneva wrist pain, right hand swelling Software Qa Manager Required: Yes Software Qa Manager Language: Railcar Carpenter Name: Kanu [id number] Information Interpreted: clinical only Accompanied by: Self / Same As Patient Allergies No Known Allergies [No Known Allergies*] Allergy (Verified 06/28/23 09:30) Medication List - Last Reconciled 06/28/23 by Rodney Buck MD abatacept (Orencia ClickJect) 125 mg subcut QWEEK acetaminophen ER (Mapap Arthritis Pain) 650 mg PO Q8H PRN 30 days albuterol sulfate 2.5 mg (3 mL) inhalation BID 30 days atenolol 25 mg PO DAILY 90 days atorvastatin 40 mg PO DAILY 90 days budesonide 0.5 mg (2 mL) inhalation DAILY 30 days [Cock up splint Wear on right wrist at night. ] flecainide 100 mg PO Q12H 90 days gabapentin 600 mg PO TID 90 days losartan 100 mg PO DAILY 90 days omeprazole 20 mg PO DAILY PRN 90 days prednisone 1/2 tab every other day orally; rivaroxaban (Xarelto) 20 mg PO DAILY sertraline 25 mg PO DAILY HPI HPI Comments History of Present Illness Details Patient returns for evaluation of her rheumatoid arthritis. We use the iPad translating service to obtain the history and facilitate the exam and treatment plan. She has difficulty hearing so often we had to have the hide and skin fleshing machine operator repeat the translations. She was last seen by Elena in March. She remains on Orencia 125 mg subcutaneously once a week, acetaminophen - two Arthritis Strength twice a day, gabapentin 600 mg 2-3 times a day, and 2.5 mg prednisone every other day. Prednisone is prescribed for the COPD/asthma that she has. She reports there still is stiffness and pain in her hands. There is also some low back pain but in general walking is limited more by her breathing than her joint pains. She still has back pain. She had a carpal tunnel and cubital tunnel release done back in March. She does not think that helped much her hand symptoms. There still is numbness in both hands. There may be fewer hand paresthesias however. We started her on Prolia in January without apparent side effects. She would be due again in July to receive another Prolia injection for her osteoporosis. She has a history of a left shoulder replacement. That surgery apparently relieved her pain but she is left with not very good range of motion. And now the right shoulder has limited motion and quite a bit pain. She did have an injection there last spring and wonders if she could have another one since it was helpful. The injection was done in Orthopedics. [facility] Medical History Abnormal chest x-ray Asthma-COPD overlap syndrome Breast pain, left Chronic anticoagulation Diastolic dysfunction Essential hypertension GERD (gastroesophageal reflux disease) History of CVA (cerebrovascular accident) (~2016) Hypoxia ILD (interstitial lung disease) Obesity Obstructive sleep apnea on CPAP Osteoarthritis of shoulders, bilateral Paroxysmal atrial fibrillation (~2016) Personal history of nicotine dependence Pneumonitis Post-menopausal Pre-op chest exam Pure hypercholesterolemia Rheumatoid arthritis Right hemiplegia (~2016) Seropositive rheumatoid arthritis Surgical History History of appendectomy History of foot surgery History of shoulder surgery Family History Father No problems noted. Mother No problems noted. Brother Stomach cancer Social History Household Members: None Housing: House Do you presently have visiting nurse or other home services: No Alcohol intake: current Alcohol intake frequency: holidays/special occasions only Alcohol type: beer Patient Tobacco Use Status: Former Tobacco user Quit Date: 6 yrs ago Tobacco use type: Cigarette Years Smoked: 20 years e-Cigarette/Vaping Use: Never Used Second Hand Smoke Exposure: No service: No Current occupational status: retired Cognitive needs: No Hearing needs: No Vision needs: No Review of Systems Const Details: She gets fatigued with walking although much of this is due to shortness of breath. Negative for appetite change, weight change, fever, chills, malaise Eyes Details: Negative for vision change, dry eyes,headaches and dizziness Card Details: Negative chest pain, edema and syncope Resp Details: She has chronic exertional dyspnea. This seems basically unchanged. Negative for sputum production, cough and wheezing GI Details: Negative indigestion/heartburn, nausea, abdominal pain, bowel changes, diarrhea, constipation and bloody stool. Skin/Breast Details: Negative for itching, rash, hives, Raynaud's symptoms, sun sensitivity, and skin cancer Endo Details: Negative for polyuria and polydypsia Enrique/Lymph Details: Negative for excessive bruising or bleeding. Physical Exam Vital Signs: Last Vital Signs Temp 97 F 06/28/23 09:31 BMI result Body Mass Index 34.8 APPEARANCE: Patient in no acute distress EYES no redness, pupils equal and reactive to light, eyelids normal. No temporal artery tenderness, redness or swelling. LUNG: Distant breath sounds. I do not hear any rales or rhonchi. There are rare expiratory wheezes. EXTREMITIES: No edema, no calf tenderness, normal peripheral pulses. JOINT EXAM: Cervical Spine:? Full range of motion with mild discomfort at the extremes. No tenderness. Thoracic Spine:? No tenderness on palpation. Lumbar Spine: Alignment normal.? Full range of motion with slight pain over lumbar spine with flexion. Hands: LEFT:? Normal pain-free range of motion with mild swelling over the 1st, 2nd, 3rd and 5th MCP joints. None of these seem to be tender today. There is early swan necking deformity of the 2nd through 4th PIP joints but none are tender. There is a boutonniere deformity at the 5th PIP which is slightly tender. There is some decreased sensation over the fingertips but no thenar atrophy. ? RIGHT:? Mild swelling and tenderness of the 1st 3 MCP joints. There is swan-neck deformity at the 2nd and 3rd PIP is without tenderness. No thenar atrophy. There is some see decreased sensation over the fingertips.? Wrists:? Right: Slight discomfort with flexion or extension at 75 degrees. No tenderness or swelling. Left: Normal pain-free range of motion without tenderness, swelling, increased warmth or erythema. Elbows: Normal pain-free range of motion without tenderness, swelling, increased warmth or erythema. Shoulders:? LEFT Limited range of motion, unable to abduct or extend greater than 45 degrees.? Slight tenderness over the AC joint.? Old scar from prior shoulder surgery in [place].? No erythema, swelling or increased warmth. ? RIGHT:? Mild to moderate pain with abduction at 90 degrees or with any attempted rotation. There is mild anterior, subacromial and posterior tenderness. There seems to be a large space between the acromion and the top of the humerus suggesting rotator cuff tear. No swelling, redness or warmth. Questionable abductor weakness but no adenopathy. Hips:? Full range of motion without pain. Hip bursa: No tenderness. Knees:? Mild patellofemoral crepitus but pain-free range of motion. There is no tenderness, effusion, redness or warmth. Ankles: Normal pain-free range of motion without tenderness, swelling, increased warmth or erythema. Feet:? Normal pain-free range of motion with mild 1st MTP bony enlargement. The area is not tender however. Other joints in the feet have no tenderness, swelling, increased warmth or erythema. Tender points:.? No tenderness to digital palpation at the occiput, trapezius, second rib, lateral epicondyle, knees, greater trochanter and gluteal area bilaterally. ? Results Reviewed Results Reviewed: Laboratory Tests 12/09/18 12/09/18 06/26/23 08:50 08:50 11:03 WBC 6.8 Hgb 13.1 ESR Rheumatoid Factor 1013.0 H Cycl Citrul Peptide IgG >250 H 06/26/23 11:03 WBC Hgb ESR 59 H Rheumatoid Factor Cycl Citrul Peptide IgG Laboratory Tests 06/26/23 11:03 Creatinine 0.84 AST 20 ALT 17 C-Reactive Protein 0.56 H Laboratory Tests 06/26/23 11:03 Creatinine 0.84 Calcium 9.1 Albumin 3.7 Assessment & Plan Assessment & Plan (1) Osteoarthritis of right glenohumeral joint: Code(s): M19.011 - Primary osteoarthritis, right shoulder (2) Osteoporosis: Comment: Prolia-1st dose 01/19/2023 Code(s): M81.0 - Age-related osteoporosis without current pathological fracture (3) Long-term use of immunosuppressant medication: Code(s): Z79.60 - care home (current) use of unspecified immunomodulators and immunosuppressants (4) Rheumatoid arthritis: Code(s): M06.9 - Rheumatoid arthritis, unspecified Qualifiers: Rheumatoid arthritis location: multiple sites Rheumatoid factor presence: with rheumatoid factor Qualified Code(s): M05.79 - Rheumatoid arthritis with rheumatoid factor of multiple sites without organ or systems involvement Plan Rheumatoid arthritis with some deformities in the hand but not a lot in the way of tenderness. I think most likely the inflammatory component of the RA is well controlled. She does have severe osteoarthritis in the right shoulder that was helped previously with orthopedic injection. We will see if she can go back there for another injection for some symptomatic relief. The left shoulder replacement seems to be helpful in that it she does not have any pain there most of the time. She does have osteoporosis and we should give her another Prolia injection next month. We will see if we can arrange that visit next month with the nurse to give her the Prolia.. She will continue with the Orencia as above. In spite of her COPD this does not seem to have caused her significant flare ups of the COPD or recent pulmonary infections. The visit today was rather lengthy because she kept having to ask the hide and skin fleshing machine operator to repeat his statements. The visit length was 34 minutes. Orders: Referrals Orthopedics Referral M19.011 - Primary osteoarthritis, right shoulder Medications: Changed From acetaminophen ER (Mapap Arthritis Pain) 650 mg PO Q8H 30 days PRN 90 tabs 1RF pain M19.011 - Primary osteoarthritis, right shoulder To acetaminophen ER (Mapap Arthritis Pain) 650 mg PO Q6-8H 30 days PRN 120 tabs 5RF pain M19.011 - Primary osteoarthritis, right shoulder Coding Level of Care Code Est Pt Level 4 (68627) Diagnoses Osteoarthritis of right glenohumeral joint M19.011 Osteoporosis M81.0 Long-term use of immunosuppressant medication Z79.60 Rheumatoid arthritis M05.79 Rheumatoid arthritis location: multiple sites Rheumatoid factor presence: with rheumatoid factor
[2023-06-28 09:31] VITALS: TEMP 36.1; BMI 34.8
== END 2023-06-28 10:33 | disposition home or self-care (01) ==
PROVIDERS: PCP Internal Medicine; Visit Provider Internal Medicine Rheumatology
DX: M19.011 Primary osteoarthritis, right shoulder (principal); M81.0 Age-related osteoporosis without current pathological fracture; Z79.60 Long term (current) use of unspecified immunomodulators and immunosuppressants; M05.79 Rheumatoid arthritis with rheumatoid factor of multiple sites without organ or systems involvement
CPT/HCPCS: 99214

== ENCOUNTER → 2023-06-28 09:01 | Outpatient (BNVA) | payer OTHER, MEDICAID, SELFPAY | PROVIDERS: PCP Internal Medicine; Visit Provider Internal Medicine Rheumatology | DX: M81.0 Age-related osteoporosis without current pathological fracture (principal); M19.011 Primary osteoarthritis, right shoulder; M05.79 Rheumatoid arthritis with rheumatoid factor of multiple sites without organ or systems involvement; Z79.60 Long term (current) use of unspecified immunomodulators and immunosuppressants | CPT/HCPCS: 99212 ==

== ENCOUNTER 2023-07-13 11:09 | Outpatient (AMB) | payer OTHER, MEDICAID, SELFPAY ==
--- NOTE | 2023-07-13 11:36 | A.OFFVIS_ITS ---
Intake Intake Visit Reasons: OV- OE B/L shoulder Intake Note: Leeanne is a 68 year old -- hand dominant female who presents today with complaints of bilateral shoulder pain. History of Partial Left TSA, right shoulder was last injected on 10/31/22. which was not helpful Allergies No Known Allergies [No Known Allergies*] Allergy (Verified 06/28/23 09:30) HPI OV- OE B/L shoulder HPI Details Leeanne is a 68 year old woman who presents with complaints of bilateral shoulder pain. She has a hx ofl left TSA, and a right shoulder injection on 11/10/22, which she says gave mild relief. She complains of pain with daily activity, worse with overhead reaching and trying to sleep. [facility] Medical History (Updated 07/13/23 @ 13:19 by Nickolas Joyce) Abnormal chest x-ray Asthma-COPD overlap syndrome Breast pain, left Chronic anticoagulation Diastolic dysfunction Essential hypertension GERD (gastroesophageal reflux disease) History of CVA (cerebrovascular accident) (~2017) Hypoxia ILD (interstitial lung disease) Obesity Obstructive sleep apnea on CPAP Osteoarthritis of shoulders, bilateral Paroxysmal atrial fibrillation (~2017) Personal history of nicotine dependence Pneumonitis Post-menopausal Pre-op chest exam Pure hypercholesterolemia Rheumatoid arthritis Right hemiplegia (~2017) Seropositive rheumatoid arthritis Surgical History History of appendectomy History of foot surgery History of shoulder surgery Family History Father No problems noted. Mother No problems noted. Brother Stomach cancer Social History Household Members: None Housing: House Do you presently have visiting nurse or other home services: No Alcohol intake: current Alcohol intake frequency: holidays/special occasions only Alcohol type: beer Patient Tobacco Use Status: Former Tobacco user Quit Date: 6 yrs ago Tobacco use type: Cigarette Years Smoked: 20 years e-Cigarette/Vaping Use: Never Used Second Hand Smoke Exposure: No service: No Current occupational status: retired Cognitive needs: No Hearing needs: No Vision needs: No Review of Systems Const All systems reviewed & are unremarkable except as noted in HPI and below Physical Exam Const General: no acute distress, alert and awake Orientation/consciousness: patient oriented x3 HEENT Head: Yes normocephalic and Yes atraumatic Eyes EOM: EOMs intact bilaterally Resp Effort & Inspection: normal respiratory effort and able to speak in complete sentences Cardio Jugular venous distension: no JVD Skin General skin exam: turgor normal Rashes: no rashes Neuro General: patient oriented x3 Extrem Other: Right Shoulder: 4/5 EC +H/N 50/90/130/L5 Psych Appearance: grossly normal Affect: normal affect Attitude: cooperative Office Procedures Joint Injection/Drain Joint Injection/Drain Details: Injected 1 mL of Decadron and 3 mL 1% lidocaine and 3 mL of 0.25% Marcaine. Si te was prepped using aseptic technique. Patient tolerated the procedure well. Primary Site: right shoulder Approach Used: posterolateral Coding - Large joint Procedure code (CPT) selection complete Results Reviewed Results Reviewed: 07/13/23 11:50 BUPivacaine MPF 0.25 % [Sensorcaine-MPF 0.25% 10 ML] 10 ml .ROUTE .STK-MED ONE Lidocaine HCl 2 % MPF [Xylocaine 2 % MPF] 5 ml .ROUTE .STK-MED ONE dexAMETHasone sod phosphate [Decadron] 4 mg .ROUTE .STK-MED ONE Assessment & Plan Assessment & Plan (1) Osteoarthritis of right glenohumeral joint: Code(s): M19.011 - Primary osteoarthritis, right shoulder Plan: Right shoulder OA, mild-moderate. Not a surgical candidate. We discussed this and elected to inject her shoulder today. She can return in 3 months for repeat injection if she wants. Should exhibit caution with repetitive overhead activity as this will worsen pain. Plan Scribed for Jacob Camara MD by Nickolas Joyce, medical office receptionist assistant, on 07/13/23 at 11:50 AM, EST. Coding Level of Care Code Est Pt Level 4 (70106) Diagnoses Osteoarthritis of right glenohumeral joint M19.011 CPT Codes Coding - Large joint: 11049 - Large joint ([id number])
== END 2023-07-13 12:00 | disposition home or self-care (01) ==
PROVIDERS: PCP Internal Medicine; Visit Provider Orthopaedic Surgery
DX: M19.011 Primary osteoarthritis, right shoulder (principal)
CPT/HCPCS: 20610; 99214

== ENCOUNTER → 2023-07-13 11:09 | Outpatient (BNVA) | payer OTHER, MEDICAID, SELFPAY | PROVIDERS: PCP Internal Medicine; Visit Provider Orthopaedic Surgery | DX: M19.011 Primary osteoarthritis, right shoulder (principal) | CPT/HCPCS: 20610; 99212; J1100 ==

== ENCOUNTER 2023-07-24 08:54 | Outpatient (AMB) | payer OTHER, MEDICAID, SELFPAY ==
[2023-07-24 10:19] VITALS: BP 132/88; PULSE 86; RESP 18
--- NOTE | 2023-07-24 10:19 | AM.OFFVISNUR ---
Intake Vital Signs 07/24/23 10:19 BP 132/88 Blood Pressure Location Lt brachial Position Sitting Respiration 18 Pulse 86 Pulse Source Pulse Oximeter Intake Visit Reasons: osteoporosis/prolia inj Janitor Caretaker Required: No Allergies No Known Allergies [No Known Allergies*] Allergy (Verified 07/24/23 10:20) Medication List - Last Reconciled 07/24/23 by Sona Aguiar RN abatacept (Orencia ClickJect) 125 mg subcut QWEEK acetaminophen ER (Mapap Arthritis Pain) 650 mg PO Q6-8H PRN 30 days albuterol sulfate 2.5 mg (3 mL) inhalation BID 30 days atenolol 25 mg PO DAILY 90 days atorvastatin 40 mg PO DAILY 90 days budesonide 0.5 mg (2 mL) inhalation DAILY 30 days [Cock up splint Wear on right wrist at night. ] flecainide 100 mg PO Q12H 90 days gabapentin 600 mg PO TID 90 days losartan 100 mg PO DAILY 90 days omeprazole 20 mg PO DAILY PRN 90 days prednisone 1/2 tab every other day orally; rivaroxaban (Xarelto) 20 mg PO DAILY sertraline 25 mg PO DAILY Nursing Note Patient here for continued Prolia injection. Patient states no new allergies or reactions. Verbal consent given, Prolia administered on R arm. Patient tolerated injection well. Office Meds Prolia 60 mg/mL subcutaneous syringe Performing Provider: Rell Perez MD Performing Location: [facility] Rheumatology Administered by: Sona Aguiar RN on 07/24/23 10:25 Dose Route Admin Location Dispensed Lot Number Expiration Date [facility] Machine Operator Hop Worker 60 mg subcut right arm 1 mL [id number] 11/11/25 49943-887-60 AMGEN Coding Level of Care Code Procedure Only Assessment & Plan Assessment & Plan Orders: Orders AMB Denosumab Injection Patient Supplied Today M81.0 - Age-related osteoporosis without current pathological fracture
== END 2023-07-24 09:57 | disposition home or self-care (01) ==
PROVIDERS: PCP Internal Medicine; Visit Provider Internal Medicine Rheumatology
DX: M81.0 Age-related osteoporosis without current pathological fracture (principal)

== ENCOUNTER → 2023-07-24 08:54 | Outpatient (BNVA) | payer OTHER, MEDICAID, SELFPAY | PROVIDERS: PCP Internal Medicine; Visit Provider Internal Medicine Rheumatology | DX: M81.0 Age-related osteoporosis without current pathological fracture (principal) | CPT/HCPCS: 96372; J0897 ==

== ENCOUNTER 2023-08-23 21:17 | Emergency (ER) | payer OTHER, SELFPAY ==
--- NOTE | ~2023-08-23 | CT_ITS ---
EXAMINATION: CT HEAD WITHOUT CONTRAST CLINICAL INFORMATION: Headache. Patient on Xarelto. COMPARISON: None available. TECHNIQUE: Contiguous axial imaging was performed from the skull base to vertex without intravenous administration of contrast. This CT examination was performed using dose optimization techniques as appropriate, variously including the following: *Automated exposure control *Adjustment of mA and/or kV according to patient size (this includes techniques or standardized protocols for targeted exams where dose is matched to indication/reason for exam; i.e. extremities or head) *Use of iterative reconstruction technique DLP: 579 mGy-cm FINDINGS: There is mild cerebral volume loss with prominence of the lateral and the third ventricle. The cortical sulci are widened appropriately. The fourth ventricle and basal cisterns are normally outlined. There is a left thalamic and basal ganglia old lacunar infarcts. There is a small inferior right cerebellar infarct. There is no acute territorial defect, hemorrhage or midline shift. The extra-axial spaces are unremarkable. Calvarium: Intact. Maxillofacial sinuses and mastoids: There is partial right mastoid opacification. Visualized maxillofacial sinuses and left mastoid are clear. CT/CT head/brain wo IV con IMPRESSION: Old left basal ganglia and thalamic lacunar infarcts. There is also old inferior right cerebellar infarct. No acute intracranial abnormality.
[2023-08-23 21:20] VITALS: BP 147/88; PULSE 50; O2SAT 96; BMI 38.5
--- NOTE | 2023-08-23 21:24 | ED.GENADULT ---
HPI - General Adult General Chief complaint: Headache Stated complaint: hypertension,headache,palpitations all day Time Seen by Provider: 08/23/23 21:20 Source: patient Mode of arrival: EMS Limitations: no limitations History of Present Illness HPI narrative: Patient is 68 years old with history of atrial flutter fibrillation hypertension congestive heart failure comes as she been having palpitation all day off and on with slight dizziness also had headache on the left side checked her blood was 198/98 at around 19:00 she took her extra losartan arrival patient blood pressure 138/68 with heart rate of 59 sinus rhythm headache has improved no shortness of breath patient was complaining of mid chest pain which is going on for months no leg edema no fever or chills no nausea no vomiting Patient blood pressure usually stable does not get headaches very often no photosensitivity no nausea vomiting Related Data Home Medications Medication Instructions Recorded Confirmed prednisone 5 mg tablet See Rx Instructions PO DAILY 03/28/23 07/24/23 Previous Rx's Medication Instructions Recorded albuterol sulfate 2.5 mg/3 mL 2.5 mg (3 mL) inhalation BID 30 02/17/22 (0.083 %) solution for nebulization days #180 mL Cock up splint #1 ea 04/12/22 atenolol 25 mg tablet 25 mg PO DAILY 90 days #90 tabs 12/07/22 atorvastatin 40 mg tablet 40 mg PO DAILY 90 days #90 tabs 12/07/22 budesonide 0.5 mg/2 mL suspension 0.5 mg (2 mL) inhalation DAILY 30 12/07/22 for nebulization days #60 mL gabapentin 600 mg tablet 600 mg PO TID 90 days #270 tabs 12/07/22 omeprazole 20 mg capsule,delayed 20 mg PO DAILY PRN heartburn 90 12/07/22 release days #90 caps rivaroxaban 20 mg tablet (Xarelto) 20 mg PO DAILY #90 tabs 12/07/22 flecainide 100 mg tablet 100 mg PO Q12H 90 days #180 tabs 03/26/23 abatacept 125 mg/mL subcutaneous 125 mg subcut QWEEK #4 mL 05/21/23 auto-injector (Orencia ClickJect) acetaminophen 650 mg 650 mg PO Q6-8H PRN pain 30 days 06/28/23 tablet,extended release (Mapap #120 tabs Arthritis Pain) losartan 100 mg tablet 100 mg PO DAILY 90 days #90 tabs 07/23/23 sertraline 25 mg tablet 25 mg PO DAILY 90 days #90 tabs 08/12/23 tramadol 50 mg tablet 50 mg PO Q6H PRN pain #20 tabs 08/23/23 Allergies Allergy/AdvReac Type Severity Reaction Status Date / Time No Known Allergies Allergy Verified 07/24/23 10:20 [No Known Allergies*] [facility] Past Medical History Medical History (Updated 08/23/23 @ 23:51 by Shay Carson MD) Pre-op chest exam Osteoarthritis of shoulders, bilateral Asthma-COPD overlap syndrome Abnormal chest x-ray Obesity Personal history of nicotine dependence History of CVA (cerebrovascular accident) (~2017) ILD (interstitial lung disease) Post-menopausal Pneumonitis Hypoxia Breast pain, left Seropositive rheumatoid arthritis Right hemiplegia (~2016) Chronic anticoagulation GERD (gastroesophageal reflux disease) Rheumatoid arthritis Diastolic dysfunction Obstructive sleep apnea on CPAP Essential hypertension Paroxysmal atrial fibrillation (~2016) Pure hypercholesterolemia Surgical History History of appendectomy History of foot surgery History of shoulder surgery Family History Family History Father No problems noted. Mother No problems noted. Brother Stomach cancer Social History Social History Household Members: None Housing: House Do you presently have visiting nurse or other home services: No Alcohol intake: current Alcohol intake frequency: holidays/special occasions only Alcohol type: beer Patient Tobacco Use Status: Former Tobacco user Quit Date: 6 yrs ago Tobacco use type: Cigarette Years Smoked: 20 years Smoked in Last 30 Days: No e-Cigarette/Vaping Use: Never Used Second Hand Smoke Exposure: No Advance Directives: No Advance Directives Information Provided: No service: No Current occupational status: retired Cognitive needs: No Hearing needs: No Vision needs: No Physical Exam ED Vital Signs: Vital Signs - 24 hr 08/23/23 22:47 Pulse Rate 60 Respiratory Rate 17 Blood Pressure 149/67 H Oxygen Delivery Method Room Air Oxygen Flow Rate 95 BMI result Body Mass Index 38.5 Appearance: Alert. Oriented X3. No acute distress. Eyes: PERRLA, No Nystagmus ENT: Pharynx normal. Oral Mucosa moist Neck: Normal inspection. Neck supple. CVS: Normal heart rate and rhythm. Pulses normal. Respiratory: No respiratory distress. Equal air entry bilateral, no wheezing/rales/rhonchi Abdomen: Soft and nontender. Bowel sounds are present, no mass palpable, no CVA tenderness Skin: Skin warm and dry. Normal skin color. Normal skin turgor. Extremities: No lower extremity edema. No calf tenderness Neuro: Oriented X 3. No motor deficit. No sensory deficit.No cerebellar signs , cranial nerves II-XII intact Medications Administered Discontinued Medications Generic Name Dose Route Start Last Admin Trade Name Freq PRN Reason Stop Dose Admin Morphine Sulfate 2 mg 08/23/23 23:16 08/23/23 23:22 Morphine Sulfate 4 Mg/Ml Cartridge IVPUSH 08/23/23 23:17 2 mg ONCE ONE Administration Protocol Medical Decision Making Medical Decision Making [facility] Narrative: Patient headache with hypertension etiology not clear CT scan negative for SAH possibly she has complex migraine headache. Will give her morphine as she is on Xarelto Differential Diagnosis Differential Diagnoses: The differential diagnosis associated with the presentation includes Accelerated hypertension/hypertensive urgency/SAH/migraine headache/temporal arteritis Admission/Observation Consideration of admission/observation: Escalation of care including admission/observation considered Lab Data [facility] Lab Attestation statement: I reviewed the patient's lab results. 08/23/23 21:35 08/23/23 21:35 Labs: Lab Results 08/23/23 Range/Units 21:35 WBC 8.0 (4.8-10.8) X10*3/uL RBC 4.73 (4.20-5.50) X10*6/uL Hgb 13.0 (12.0-16.0) g/dl Hct 41.2 (37.0-47.0) % MCV 87.1 (80.0-98.0) fL MCH 27.5 (27.0-33.0) pg MCHC 31.6 (31.0-35.0) g/dl RDW 14.0 (11.0-16.0) % Plt Count 206 (160-400) X10*3/uL MPV 11.5 (9.4-12.3) fL Absolute Nucleated RBC 0.000 (0.0-0.012) X10*3/uL Nucleated RBC % (auto) 0.0 (0.0-0.2) /100WBC PT 14.5 H (11.1-13.3) SEC INR 1.2 H (0.9-1.1) Sodium 139 (135-145) mmol/L Potassium 4.5 (3.3-5.1) mmol/L Chloride 108 (96-108) mmol/L Carbon Dioxide 21 L (22-29) mmol/L Anion Gap 15 (12-20) BUN 16 (9-16) mg/dL Creatinine 0.72 (0.5-1.4) mg/dL Estim Creat Clear Calc 61.6 Estimated GFR > 60 Random Glucose 86 (60-115) mg/dL Calcium 9.7 D (8.4-10.2) mg/dL Total Bilirubin 0.3 (0.0-1.0) mg/dL AST 22 (5-31) U/L ALT 13 (0-31) U/L Alkaline Phosphatase 73 (39-117) U/L Troponin I High Sens < 2.7 (<3.5-17.0) ng/L Total Protein 7.7 (6.5-8.0) g/dL Albumin 3.8 (3.5-5.0) g/dL Radiology Impression Discussion of test interpretation with radiology: I have reviewed the radiologist's reading. Radiologist Impression: [place] [id number] CT Scan Report Signed Patient: Leeanne Lozada MR#: [id number] : 1955 Acct:[id number] Age/Sex: 68 / F ADM Date: 08/23/23 Loc: HO.ED Attending Dr: Ordering Physician: Shay Carson MD Date of Service: 08/23/23 Procedure(s): CT head/brain wo IV con Accession Number(s): [id number] cc: Dafne Betancourt MD; Shay Carson MD~ EXAMINATION: CT HEAD WITHOUT CONTRAST CLINICAL INFORMATION: Headache. Patient on Xarelto. COMPARISON: None available. TECHNIQUE: Contiguous axial imaging was performed from the skull base to vertex without intravenous administration of contrast. This CT examination was performed using dose optimization techniques as appropriate, variously including the following: *Automated exposure control *Adjustment of mA and/or kV according to patient size (this includes techniques or standardized protocols for targeted exams where dose is matched to indication/reason for exam; i.e. extremities or head) *Use of iterative reconstruction technique DLP: 579 mGy-cm FINDINGS: There is mild cerebral volume loss with prominence of the lateral and the third ventricle. The cortical sulci are widened appropriately. The fourth ventricle and basal cisterns are normally outlined. There is a left thalamic and basal ganglia old lacunar infarcts. There is a small inferior right cerebellar infarct. There is no acute territorial defect, hemorrhage or midline shift. The extra-axial spaces are unremarkable. Calvarium: Intact. Maxillofacial sinuses and mastoids: There is partial right mastoid opacification. Visualized maxillofacial sinuses and left mastoid are clear. CT/CT head/brain wo IV con IMPRESSION: Old left basal ganglia and thalamic lacunar infarcts. There is also old inferior right cerebellar infarct. 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 Prescriptions: New tramadol 50 mg tablet 50 mg PO Q6H PRN (Reason: pain) Qty: 20 0RF No Action (DME) Cock up splint See Rx Instructions .Route .MEDSUPPLY Qty: 1 0RF Rx Instructions: Wear on right wrist at night. atenolol 25 mg tablet 25 mg PO DAILY 90 Days Qty: 90 5RF Rx Instructions: Keep appt on 12/04/[address] Montoya. atorvastatin 40 mg tablet 40 mg PO DAILY 90 Days Qty: 90 3RF budesonide 0.5 mg/2 mL suspension for nebulization 0.5 mg inhalation DAILY 30 Days Qty: 60 11RF gabapentin 600 mg tablet 600 mg PO TID 90 Days Qty: 270 3RF omeprazole 20 mg capsule,delayed release(DR/EC) 20 mg PO DAILY PRN (Reason: heartburn) 90 Days Qty: 90 1RF Xarelto 20 mg tablet 20 mg PO DAILY Qty: 90 2RF flecainide 100 mg tablet 100 mg PO Q12H 90 Days Qty: 180 0RF Orencia ClickJect 125 mg/mL auto-injector 125 mg subcut QWEEK Qty: 4 5RF losartan 100 mg tablet 100 mg PO DAILY 90 Days Qty: 90 1RF sertraline 25 mg tablet 25 mg PO DAILY 90 Days Qty: 90 1RF albuterol sulfate 2.5 mg /3 mL (0.083 %) solution for nebulization 2.5 mg inhalation BID 30 Days Qty: 180 11RF prednisone 5 mg tablet See Rx Instructions PO DAILY Rx Instructions: 1/2 tab every other day orally; acetaminophen [Mapap Arthritis Pain] 650 mg tablet extended release 650 mg PO Q6-8H PRN (Reason: pain) 30 Days Qty: 120 5RF Print Language: Sammarinese
--- NOTE | 2023-08-23 21:26 | ECG_ITS ---
Test Reason : PAPITETIONS Blood Pressure : / mmHG Vent. Rate : 059 BPM Atrial Rate : 059 BPM P-R Int : 188 ms QRS Dur : 070 ms QT Int : 438 ms P-R-T Axes : 016 009 059 degrees QTc Int : 433 ms Sinus bradycardia Otherwise normal ECG When compared with ECG of 30-AUG-2022 18:21, QRS duration has decreased Heart rate has decreased Referred By: Shay Carson Electronically Signed By:JOSE ANTONIO EARLY MD
[2023-08-23 21:40] LABS: Hematocrit 41.2 % (37.0-47.0); Mean Corpuscular HGB Conc 31.6 g/dl (31.0-35.0); Mean Corpuscular Hemoglobin 27.5 pg (27.0-33.0); Mean Corpuscular Volume 87.1 fL (80.0-98.0); Mean Platelet Volume 11.5 fL (9.4-12.3); Platelet Count 206 X10*3/uL (160-400); Red Blood Count 4.73 X10*6/uL (4.20-5.50)
[2023-08-23 21:45] LABS: INTERNATIONAL NORM RATIO 1.2 (0.9-1.1); Prothrombin Time 14.5 SEC (11.1-13.3)
[2023-08-23 21:56] LABS: Alanine Aminotransferase 13 U/L (0-31); Albumin Level 3.8 g/dL (3.5-5.0); Alkaline Phosphatase 73 U/L (39-117); Anion Gap 15 (12-20); Aspartate Amino Transferase 22 U/L (5-31); Bilirubin Total 0.3 mg/dL (0.0-1.0); Blood Urea Nitrogen 16 mg/dL (9-16); Calcium 9.7 mg/dL (8.4-10.2); Carbon Dioxide 21 mmol/L (22-29); Chloride 108 mmol/L (96-108); Creatinine Clr Calc Pharmacy 61.6; Estimated Glomerular Filt Rate > 60; Glucose Random 86 mg/dL (60-115); Potassium 4.5 mmol/L (3.3-5.1); Sodium 139 mmol/L (135-145); Total Protein 7.7 g/dL (6.5-8.0)
[2023-08-23 22:03] LABS: Troponin-I High Sensitivity < 2.7 ng/L (<3.5-17.0)
[2023-08-23 22:47] VITALS: BP 149/67; PULSE 60; RESP 17
[2023-08-23] MEDS: Morphine Sulfate 4 MG/ML CARTRIDGE 2 MG IVPUSH (23:22)
== END 2023-08-24 00:17 | disposition home or self-care (01) ==
PROVIDERS: Emergency Provider Internal Medicine; PCP Internal Medicine
DX: R51.9 Headache, unspecified (principal); I48.0 Paroxysmal atrial fibrillation; I11.0 Hypertensive heart disease with heart failure; I50.9 Heart failure, unspecified; E78.00 Pure hypercholesterolemia, unspecified; E66.9 Obesity, unspecified; Z68.38 Body mass index [BMI] 38.0-38.9, adult; Z87.891 Personal history of nicotine dependence; Z79.899 Other long term (current) drug therapy; Z86.73 Personal history of transient ischemic attack (TIA), and cerebral infarction without residual deficits
CPT/HCPCS: 36415; 70450; 80053; 84484; 85027; 85610; 93005; 96360; 99284; 99285; J2270

== ENCOUNTER 2023-10-10 11:54 | Outpatient (AMB) | payer OTHER, MEDICAID, SELFPAY ==
--- NOTE | 2023-10-10 12:37 | MHC.PC.OV ---
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 ] flecainide 100 mg PO Q12H 90 days gabapentin 600 mg PO TID 90 days losartan 100 mg PO DAILY 90 days omeprazole 20 mg PO DAILY PRN 90 days prednisone 10 mg (2 x 5 mg) PO DAILY rivaroxaban (Xarelto) 20 mg PO DAILY sertraline 25 mg PO DAILY 90 days tramadol 50 mg PO Q6H PRN Tobacco use date assessed: 11/21/22 Fall risk assessment: No Falls in past year Last assessed Fall Risk: 10/10/23 Dental Screening Dental Screen Date: 10/10/23 Did you have a dental visit in the last 12 months?: Yes Did you have a dental problem in the last 6 months where you did not have access to dental care?: No Was dental information given to patient?: Patient has dentist HPI HPI Comments History of Present Illness Details This is a 68-year-old female with rheumatoid arthritis, mild recurrent major depression, hypertension and pure hypercholesterolemia that comes today for follow-up on her conditions. On orencia for her rheumatoid arthritis and still has joint pain. Rheumatoid arthritis is follow by Rheumatology. Depression stable with SSRIs. Blood pressure well controlled with losartan. Cholesterol stable with statins. No chest pain or shortness of breath. [facility] Medical History (Updated 10/10/23 @ 13:38 by Dafne Pollard MD) Pre-op chest exam Osteoarthritis of shoulders, bilateral Asthma-COPD overlap syndrome Abnormal chest x-ray Obesity Personal history of nicotine dependence History of CVA (cerebrovascular accident) (~2017) ILD (interstitial lung disease) Post-menopausal Pneumonitis Hypoxia Breast pain, left Seropositive rheumatoid arthritis Right hemiplegia (~2017) Chronic anticoagulation GERD (gastroesophageal reflux disease) Rheumatoid arthritis Diastolic dysfunction Obstructive sleep apnea on CPAP Essential hypertension Paroxysmal atrial fibrillation (~2017) Pure hypercholesterolemia Surgical History History of appendectomy History of foot surgery History of shoulder surgery Family History Father No problems noted. Mother No problems noted. Brother Stomach cancer Social History Household Members: None Housing: House Do you presently have visiting nurse or other home services: No Alcohol intake: current Alcohol intake frequency: holidays/special occasions only Alcohol type: beer Patient Tobacco Use Status: Former Tobacco user Quit Date: 6 yrs ago Tobacco use type: Cigarette Years Smoked: 20 years e-Cigarette/Vaping Use: Never Used Second Hand Smoke Exposure: No service: No Current occupational status: retired Cognitive needs: No Hearing needs: No Vision needs: No Questionnaire Thrive Questionnaire Date Thrive assessed: 11/21/22 GENNY-7 AMB Questionnaire GENNY-7 Date GENNY - 7 assessed: 11/21/22 Source: Developed by Drs. Kai Mejia, Jade Cheng, Neil Gannon and colleagues, with an educational phil from [employer]. Review of Systems Const All systems reviewed & are unremarkable except as noted in HPI and below Eyes Reports no additional complaints, Denies change in vision and Denies other visual disturbances Card Denies chest pain at rest, Denies chest pain with activity, Denies edema, Denies irregular heart rhythm, Denies claudication, Denies dyspnea, Denies dyspnea on exertion, Denies orthopnea, Denies paroxysmal nocturnal dyspnea and Denies slow heart rate Resp Denies cough, Denies dyspnea and Denies dyspnea on exertion GI Denies abdominal pain, Denies change in bowel habits, Denies excessive flatus, Denies nausea and Denies vomiting Denies urinary incontinence, Denies urinary hesitancy and Denies urinary urgency Musc Denies abnormal gait, Denies atrophy, Denies deformity and Denies limited range of motion Skin/Breast Denies bleeding lesions, Denies changing lesions and Denies rash Neuro Denies abnormal gait and Denies lack of coordination Physical exam (Primary Care) Vital Signs: Last Vital Signs Pulse 71 10/10/23 12:38 BP 110/70 10/10/23 12:38 Pulse Ox 97 10/10/23 12:38 Oxygen Delivery Method Room Air 10/10/23 12:38 BMI result Body Mass Index 38.1 Tobacco/Smoking Status: Tobacco use Status Tobacco use date assessed 11/21/22 10/10/23 12:46 Patient Tobacco Use Status Former Tobacco user 10/10/23 12:46 Tobacco use type Cigarette 10/10/23 12:46 e-Cigarette/Vaping Use Never Used 10/10/23 12:46 Thrive Assessment: Date of Thrive Assessment Date Thrive assessed 11/21/22 10/10/23 12:46 Const Orientation/consciousness: patient oriented x3 Neck Neck: Yes normal visual inspection and Yes supple Resp Effort & Inspection: normal respiratory effort Auscultation: clear to auscultation bilaterally Cardio Jugular venous distension: no JVD Rate: regular rate Rhythm: regular rhythm Heart sounds: S1 normal heart sound present and S2 normal heart sound present Neuro General: patient oriented x3 and no focal motor deficits Extrem General: Yes full ROM Office Procedures Flu Questionnaire Does the patient have a severe egg allergy?: No Immunizations flu vacc [id number] 6mos up(PF) 60 mcg(15 mcgx4)/0.5 mL IM syringe Performing Provider: Dafne Pollard MD [facility] Documented (not given) by: DORINA Hyde on 10/10/23 13:51 Reason Not Given: Patient Refused Assessment and Plan Assessment & Plan (1) Mild recurrent major depression: Code(s): F33.0 - Major depressive disorder, recurrent, mild Plan: Continue SSRIs. (2) Rheumatoid arthritis: Code(s): M06.9 - Rheumatoid arthritis, unspecified Qualifiers: Rheumatoid arthritis location: multiple sites Rheumatoid factor presence: with rheumatoid factor Qualified Code(s): M05.79 - Rheumatoid arthritis with rheumatoid factor of multiple sites without organ or systems involvement Plan: Continue Orencia. Follow-up with rheumatology. (3) Essential hypertension: Code(s): I10 - Essential (primary) hypertension Plan: Continue losartan. Blood pressure goal is equal or less than 130/80 P (4) Pure hypercholesterolemia: Code(s): E78.00 - Pure hypercholesterolemia, unspecified Plan: Continue statins. Orders: Orders US abdomen complete Today R10.9 - Unspecified abdominal pain Influenza [id number] Immunization Today Z23 - Encounter for immunization Coding Level of Care Code Est Pt Level 4 (26267) Diagnoses Mild recurrent major depression F33.0 Rheumatoid arthritis involving multiple sites with positive rheumatoid factor M05.79 Rheumatoid arthritis location: multiple sites Rheumatoid factor presence: with rheumatoid factor Essential hypertension I10 Pure hypercholesterolemia E78.00 Time Spent (min) 20
[2023-10-10 12:38] VITALS: BP 110/70; PULSE 71; O2SAT 97; BMI 38.1
== END 2023-10-10 13:44 | disposition home or self-care (01) ==
PROVIDERS: PCP Internal Medicine; Visit Provider Internal Medicine
DX: I10 Essential (primary) hypertension (principal); F33.0 Major depressive disorder, recurrent, mild; M05.79 Rheumatoid arthritis with rheumatoid factor of multiple sites without organ or systems involvement; E78.00 Pure hypercholesterolemia, unspecified
CPT/HCPCS: 99214

== ENCOUNTER 2023-10-25 10:49 | Outpatient (REF) | payer OTHER, SELFPAY ==
[2023-10-25 12:06] LABS: MANUAL DIFF FLAG NO
[2023-10-25 12:49] LABS: Basophils Absolute Auto 0.1 X10*3/uL (0.0-0.2); Basophils Percent Auto 0.7 % (0-2); Eosinophils Absolute Auto 0.2 X10*3/uL (0.0-0.4); Eosinophils Percent Auto 2.2 % (0-4); Hematocrit 43.5 % (37.0-47.0); Hemoglobin 13.5 g/dl (12.0-16.0); Imm Gran Abs Auto 0.02 X10*3/uL (0.00-0.03); Imm Gran Pct Auto 0.2 % (0.0-0.4); Lymphocytes Absolute Auto 2.3 X10*3/uL (1.2-4.9); Lymphocytes Percent Auto 28.5 % (20-40); Mean Corpuscular Hemoglobin 27.7 pg (27.0-33.0); Mean Corpuscular Volume 89.1 fL (80.0-98.0); Mean Platelet Volume 12.8 fL (9.4-12.3); Monocytes Absolute Auto 0.7 X10*3/uL (0.1-1.2); Monocytes Percent Auto 8.4 % (2-11); Neutrophils Absolute Auto 4.9 x10*3/uL (2.0-8.3); Platelet Count 197 X10*3/uL (160-400); Red Blood Count 4.88 X10*6/uL (4.20-5.50); Red Cell Distribution Width 13.7 % (11.0-16.0); White Blood Count 8.2 X10*3/uL (4.8-10.8)
[2023-10-25 13:13] LABS: Alanine Aminotransferase 14 U/L (0-31); Alkaline Phosphatase 57 U/L (39-117); Anion Gap 14 (12-20); Aspartate Amino Transferase 20 U/L (5-31); Bilirubin Total 0.4 mg/dL (0.0-1.0); Blood Urea Nitrogen 15 mg/dL (9-16); C Reactive Protein 0.47 mg/dL (< or = 0.50); Calcium 9.6 mg/dL (8.4-10.2); Carbon Dioxide 25 mmol/L (22-29); Chloride 107 mmol/L (96-108); Estimated Glomerular Filt Rate > 60; Glucose Random 82 mg/dL (60-115); Potassium 4.3 mmol/L (3.3-5.1); Sodium 142 mmol/L (135-145)
[2023-10-25 13:45] LABS: Erythrocyte Sedimentation Rate 63 MM/HR (0-20)
== END 2023-10-25 10:50 | disposition home or self-care (01) ==
LOC: HO.LAB 10:49
PROVIDERS: Nurse Practitioner Family; PCP Internal Medicine; Visit Provider Internal Medicine Rheumatology
DX: M19.011 Primary osteoarthritis, right shoulder (principal); M81.0 Age-related osteoporosis without current pathological fracture; M05.79 Rheumatoid arthritis with rheumatoid factor of multiple sites without organ or systems involvement; Z79.60 Long term (current) use of unspecified immunomodulators and immunosuppressants; Z79.899 Other long term (current) drug therapy
CPT/HCPCS: 36415; 80053; 85025; 85652; 86140; 99212

== ENCOUNTER 2023-10-25 10:49 | Outpatient (AMB) | payer OTHER, SELFPAY ==
--- NOTE | 2023-10-25 11:08 | A.OFFVIS_ITS ---
Intake Vital Signs 10/25/23 11:09 Height 4 ft 8 in Weight 172 lb 6.424 oz BMI 38.6 BP 100/70 Blood Pressure Location Rt brachial Position Sitting Pulse 72 Pulse Source Pulse Oximeter Temp 97 F Temp Source Skin Pulse Oximetry (%) 97 Oxygen Delivery Method Room Air Intake Visit Reasons: ra, osteoporosis Intake Note: Patient present today for RA and Osteoporosis follow up visit. Legal Referee Required: Yes Legal Referee Language: Personal Financial Counselor Name: [id number] Garcia Information Interpreted: clinical only Accompanied by: Self / Same As Patient Allergies No Known Allergies [No Known Allergies*] Allergy (Verified 10/25/23 11:11) HPI HPI Comments History of Present Illness Details Ms. Fallon, 68 yoF Patient returns for follow-up of her rheumatoid arthritis. We use the [employer] translating service to obtain the history and facilitate the exam and treatment plan. She has difficulty hearing so often we had to have the water regulator and valve repairer repeat the translations. She was last seen June 2023. She remains on Orencia 125 mg subcutaneously once a week, acetaminophen - two Arthritis Strength twice a day, gabapentin 600 mg 2-3 times a day, and 2.5 mg prednisone every other day. Prednisone is prescribed for the COPD/asthma that she has. She denies RA related stiffness and pain in her hands but reports discomfort to touch of her right hand due to overensitivity secondary to former stroke. There is also some low back pain but in general walking is limited more by her breathing than her joint pains. She reports occasional pain to her knees. She had a carpal tunnel and cubital tunnel release done back in March 2023. She does not think that helped much her hand symptoms. There still is numbness in both hands. There may be fewer hand paresthesias however. We started her on Prolia in January 2023 without apparent side effects. She had the 2/2 in July 2023 for osteoporosis. She has a history of a left shoulder replacement. That surgery apparently relieved her pain but she is left with not very good range of motion. And now the right shoulder has limited motion and quite a bit pain. She follows with Orthopedic who did the injection. [facility] Medical History Pre-op chest exam Osteoarthritis of shoulders, bilateral Asthma-COPD overlap syndrome Abnormal chest x-ray Obesity Personal history of nicotine dependence History of CVA (cerebrovascular accident) (~2017) ILD (interstitial lung disease) Post-menopausal Pneumonitis Hypoxia Breast pain, left Seropositive rheumatoid arthritis Right hemiplegia (~2017) Chronic anticoagulation GERD (gastroesophageal reflux disease) Rheumatoid arthritis Diastolic dysfunction Obstructive sleep apnea on CPAP Essential hypertension Paroxysmal atrial fibrillation (~2017) Pure hypercholesterolemia Surgical History History of appendectomy History of foot surgery History of shoulder surgery Family History Father No problems noted. Mother No problems noted. Brother Stomach cancer Social History Household Members: None Housing: House Do you presently have visiting nurse or other home services: No Alcohol intake: current Alcohol intake frequency: holidays/special occasions only Alcohol type: beer Patient Tobacco Use Status: Former Tobacco user Quit Date: 6 yrs ago Tobacco use type: Cigarette Years Smoked: 20 years e-Cigarette/Vaping Use: Never Used Second Hand Smoke Exposure: No service: No Current occupational status: retired Cognitive needs: No Hearing needs: No Vision needs: No Review of Systems Const All systems reviewed & are unremarkable except as noted in HPI and below Physical Exam Vital Signs: Last Vital Signs Temp 97 F 10/25/23 11:09 Pulse 72 10/25/23 11:09 BP 100/70 10/25/23 11:09 Pulse Ox 97 10/25/23 11:09 Oxygen Delivery Method Room Air 10/25/23 11:09 BMI result Body Mass Index 38.6 APPEARANCE: Patient in no acute distress, groomed and appears nourished. EYES no redness, eyelids normal. No temporal artery tenderness, redness or swelling. LUNG: Distant breath sounds. I do not hear any rales or rhonchi. There are rare expiratory wheezes. EXTREMITIES: No edema, no calf tenderness, normal peripheral pulses. JOINT EXAM: Cervical Spine:? Full range of motion with mild discomfort at the extremes. No tenderness. Thoracic Spine:? No tenderness on palpation. Lumbar Spine: Alignment normal.? Full range of motion with slight pain over lumbar spine with flexion. Hands: LEFT:? Normal pain-free range of motion with no more mild swelling over the 1st, 2nd, 3rd and 5th MCP joints. None of these are tender today. There is early swan necking deformity of the 2nd through 4th PIP joints but none are tender. There is a boutonniere deformity at the 5th PIP which is slightly tender. There is some decreased sensation over the fingertips but no thenar atrophy. ? RIGHT:? Mild swelling and tenderness of the 1st 3 MCP joints. There is swan-neck deformity at the 2nd and 3rd PIP is without tenderness. No thenar atrophy. There is some see decreased sensation over the fingertips.? Wrists:? Right: Today No more slight discomfort with flexion or extension at 75 degrees. No tenderness or swelling. Left: Normal pain-free range of motion without tenderness, swelling, increased warmth or erythema. Elbows: Normal pain-free range of motion without tenderness, swelling, increased warmth or erythema. Shoulders:? LEFT Limited range of motion, unable to abduct or extend greater than 45 degrees.? Slight tenderness over the AC joint.? Old scar from prior shoulder surgery in [place].? No erythema, swelling or increased warmth. ? RIGHT:? Mild to moderate pain with abduction at 90 degrees or with any attempted rotation. There is mild anterior, subacromial and posterior tenderness. There seems to be a large space between the acromion and the top of the humerus suggesting rotator cuff tear. No swelling, redness or warmth. Questionable abductor weakness but no adenopathy. Hips:? Full range of motion without pain. Hip bursa: No tenderness. Knees:? Mild patellofemoral crepitus but pain-free range of motion. There is no tenderness, effusion, redness or warmth. Ankles: Normal pain-free range of motion without tenderness, swelling, increased warmth or erythema. Feet:? Normal pain-free range of motion with mild 1st MTP bony enlargement. The area is not tender however. Other joints in the feet have no tenderness, swelling, increased warmth or erythema. Tender points:.? No tenderness to digital palpation at the occiput, trapezius, second rib, lateral epicondyle, knees, greater trochanter and gluteal area bilaterally. ? Assessment & Plan Assessment & Plan (1) Osteoarthritis of right glenohumeral joint: Code(s): M19.011 - Primary osteoarthritis, right shoulder (2) Long-term use of immunosuppressant medication: Code(s): Z79.60 - long-term (current) use of unspecified immunomodulators and immunosuppressants (3) Osteoporosis: Comment: Prolia-1st dose 01/19/2023 Code(s): M81.0 - Age-related osteoporosis without current pathological fracture Qualifiers: Osteoporosis type: age-related Presence of current pathological fracture: without current pathological fracture Qualified Code(s): M81.0 - Age- related osteoporosis without current pathological fracture (4) Rheumatoid arthritis involving multiple sites with positive rheumatoid factor: Code(s): M05.79 - Rheumatoid arthritis with rheumatoid factor of multiple sites without organ or systems involvement Plan #RA/OA Shoulder: Mrs. Fallon is here for follow-up of Rheumatoid arthritis. She has no real complaints today continues on Orencia. No synovitis or tenderness appreciated on physical exam. The inflammatory component of the RA is well controlled. She does have severe osteoarthritis with calcific tendonitisin the right shoulder that was helped previously with orthopedic injection and will continue to follow with them. The left shoulder replacement seems to be helpful in that it she does not have any pain there most of the time. She will continue with the Orencia. #Osteoporosis: T-Score -3.8 on DEXA 10/2021. Her last Prolia was July 2023, Next january 2024. #Jail Use: She is due for updated labs, we will obtain today. I will also obtain labs in preparation for next Prolia injection and next follow-up in January. She denies side effects of medications. Iindividuals with chronic obstructive pulmonary disease (COPD) should be monitored closely as Orencia has been noted to increase the risk of COPD exacerbation.?In spite of her COPD this does not seem to have caused her significant flare ups or recent pulmonary infections. Orders: Orders Erythrocyte Sedimentation Rate Today M06.9 - Rheumatoid arthritis, unspecified, Z79.60 - long-term (current) use of unspecified immunomodulators and immunosuppressants C Reactive Protein Today M06.9 - Rheumatoid arthritis, unspecified, Z79.60 - long-term (current) use of unspecified immunomodulators and immunosuppressants Complete Blood Count Auto Diff Today M06.9 - Rheumatoid arthritis, unspecified, Z79.60 - termite exterminator helper (current) use of unspecified immunomodulators and immunosuppressants, Z79.899 - Other alf (current) drug therapy Comprehensive Met. Panel Today M06.9 - Rheumatoid arthritis, unspecified, Z79.60 - termite exterminator helper (current) use of unspecified immunomodulators and immunosuppressants XR DEXA axial skeleton Today M06.9 - Rheumatoid arthritis, unspecified, M81.0 - Age-related osteoporosis without current pathological fracture, Z79.60 - termite exterminator helper (current) use of unspecified immunomodulators and immunosuppressants Coding Level of Care Code Est Pt Level 4 (29517) Diagnoses Osteoarthritis of right glenohumeral joint M19.011 Long-term use of immunosuppressant medication Z79.60 Age-related osteoporosis without current pathological fracture M81.0 Osteoporosis type: age-related Presence of current pathological fracture: without current pathological fracture Rheumatoid arthritis involving multiple sites with positive rheumatoid factor M05.79
[2023-10-25 11:09] VITALS: BP 100/70; PULSE 72; TEMP 36.1; O2SAT 97; BMI 38.6
== END 2023-10-25 11:37 | disposition home or self-care (01) ==
PROVIDERS: PCP Internal Medicine; Visit Provider Internal Medicine Rheumatology
DX: M19.011 Primary osteoarthritis, right shoulder (principal); Z79.60 Long term (current) use of unspecified immunomodulators and immunosuppressants; M81.0 Age-related osteoporosis without current pathological fracture; M05.79 Rheumatoid arthritis with rheumatoid factor of multiple sites without organ or systems involvement
CPT/HCPCS: 99214

== ENCOUNTER → 2023-12-28 09:06 | Outpatient (REF) | payer OTHER, SELFPAY ==
--- NOTE | 2023-12-28 09:08 | CA_ITS ---
Transthoracic Echocardiogram Patient (Last, First, Middle): Leeanne Lozada, Gender: Female Date of : 1955 Age: 68 Procedure Date: 12/28/2023 Procedure Type: Transthoracic Echocardiogram Location: OP Height: 149. cm Weight: 76.21 kg BSA: 1.71 m2 Heart Rate: 53 bpm BP: 130 / 70 mmHg Wash Plant Operator: DOUGLAS Referring MD: Noah Montoya MD Symptoms: I50.30 - Unspecified diastolic (congestive) heart failure Study Quality: Adequate ECG Rhythm: Bradycardia Conclusions: - Normal left ventricular size and systolic function. There is moderately increased left ventricular wall thickness. The visually estimated ejection fraction is between 60-65%. There is no evidence of regional wall motion abnormalities. Diastolic function is indeterminate on the basis of available data. Reduced GLS -14.2 %. - There is mildly decreased right ventricular systolic function. RV size upper limit of normal. - The left atrium is severely dilated. The right atrium is moderately dilated. - There is severe mitral annular calcification. Findings Left Ventricle Normal left ventricular size and systolic function. There is moderately increased left ventricular wall thickness. The visually estimated ejection fraction is between 60-65%. There is no evidence of regional wall motion abnormalities. Diastolic function is indeterminate on the basis of available data. Reduced GLS -14.2 %. Right Ventricle There is mildly decreased right ventricular systolic function. RV size upper limit of normal. Atria The left atrium is severely dilated. The right atrium is moderately dilated. Aortic Valve There is a normal trileaflet aortic valve. There is mild calcification of the aortic valve. There is no aortic valve stenosis. There is no aortic valve regurgitation. Mitral Valve There is severe mitral annular calcification. There is trace mitral valve regurgitation. There is no mitral valve stenosis. Pulmonic Valve The pulmonic valve is likely normal. Tricuspid Valve Normal tricuspid valve structure. There is mild tricuspid valve regurgitation. Normal right atrial pressure. There is no evidence of pulmonary hypertension. Great Vessels All visible segments of the aorta are normal in size. Venous The inferior vena cava is normal in size and collapses greater than 50% with inspiration. Pericardium/Pleural There is no evidence of pericardial effusion. Measurements 2D Linear Measurements IVSd: 1.23 0.6-0.9/0.6-1.0 cm LVIDd: 3.68 3.9-5.3/4.2-5.9 cm LVIDd Index: 2.15 2.4-3.2/2.2-3.1 cm/m2 LVIDs: 3.26 2.0-3.6 cm LVPWd: 1.27 0.7-1.1 cm LA Diam: 4.50 2.7-3.8/3.0-4.0 cm LAIDs Index: 2.63 1.5-2.3 cm/m2 LV Mass: 193.64 67-162/88-224 g LV Mass Index: 113.24 43-95/49-115 g/m2 LVOT Diam: 1.90 3.0+(-)1.3 cm 2D Systolic Function EF 4C: 71.40 >55% EF 2C: 60.70 >55% Mitral Valve MV VTI: 0.52 MV Pk Latrell: 1.39 MV Mn Latrell: 0.76 MV Pk Grad: 8.00 MV Mn Grad: 3.00 MV Pk E: 1.58 MV PK A: 0.82 MV Decel Time: 308.00 E/A: 1.90 E'Lateral: 6.09 E'Medial: 4.90 E/E' Med: 32.20 E/E' Lat: 25.90 PHT: 90.00 MVA PHT: 2.44 MVA Continuity: 1.62 Decel [place]: 5.11 Aortic Valve AoV Pk Latrell: 1.32 AoV Mn Latrell: 0.92 AoV VTI: 0.34 AoV Pk Grad: 7.00 Aov Mn Grad: 4.00 RICHARD Cont.VTI: 2.50 LVOT LVOT Pk Latrell: 1.12 LVOT Mn Latrell: 0.83 LVOT VTI: 0.30 LVOT Pk Grad: 5.00 LVOT Mn Grad: 3.00 LVOT Diam: 1.90 LVOT Area: 2.84 Diastolic Function MV Pk E: 1.58 MV Pk A: 0.82 E/A: 1.90 E'Medial: 4.90 E/E' Med: 32.20 E' Laterial: 6.09 E/E' Lat: 25.90 Right Ventricle TAPSE (mm): 18.40 TVS' Latrell: 8.41 Tricuspid Valve TR Pk Latrell: 2.39 TR Pk Grad: 23.00 RA Press: 3.00 RVSP: 26.00 Great Vessels Aorta Sinus of Valsalva: 2.90 2.0-3.5 cm Ao Asc: 2.90 2.1-3.4 cm Pulmonary Valve PV Pk Latrell: 0.72 Peak PV Grad: 2.00 Updated in Other Vendor System with Status of Final Brian Pacheco MD electronically signed on 12/30/2023 1:17:07 PM with status of Final
== END ==
LOC: HO.CARD 09:06
PROVIDERS: PCP Internal Medicine; Visit Provider Internal Medicine Cardiovascular Disease
DX: I50.30 Unspecified diastolic (congestive) heart failure (principal)
CPT/HCPCS: 93306; 93356

== ENCOUNTER → 2023-12-28 09:08 | Outpatient (BNV) | payer OTHER, SELFPAY | PROVIDERS: PCP Internal Medicine; Visit Provider Internal Medicine Cardiovascular Disease | DX: I34.81 Nonrheumatic mitral (valve) annulus calcification (principal); I36.1 Nonrheumatic tricuspid (valve) insufficiency | CPT/HCPCS: 93306 ==

== ENCOUNTER 2024-01-01 09:58 | Outpatient (REF) | payer OTHER, SELFPAY ==
--- NOTE | ~2024-01-01 | MM_ITS ---
EXAMINATION: BONE DENSITOMETRY CLINICAL INDICATION: Age-related osteoporosis without current pathological fracture. COMPARISON: Baseline BD dated 10/19/2021. TECHNIQUE: Using a [employer]te DXA System (software version: 13.1) manufactured by [employer], dual-energy x-ray absorptiometry was performed of the lumbar spine and left hip. The images are of good technical quality. Summary results are attached. FINDINGS: LEFT FEMUR, NECK: Current: BMD 0.722 g/cm2, Z-score -0.9, T-score -2.3, osteopenia. Baseline: BMD 0.642 g/cm2. LEFT FEMUR, TOTAL: Current: BMD 0.829 g/cm2, Z-score -0.3, T-score -1.4, osteopenia, 2.0% increase from baseline (<5% change is not significant). Baseline: BMD 0.813 g/cm2. AP SPINE L1-L4: Current: BMD 0.863 g/cm2, Z-score -1.5, T-score -2.6, osteoporosis, 19.0% increase from baseline (<5% change is not significant). Baseline: BMD 0.725 g/cm2. IDENTIFIED RISK FACTORS: Anticonvulsant, parental hip fracture, glucocorticoids, history of fracture (adult), menopause, osteoporosis, rheumatoid arthritis. HISTORY OF FRACTURE: Shoulder. MEDICATIONS: None listed. MM/XR DEXA axial skeleton IMPRESSION: 1. DIAGNOSIS: Severe osteoporosis based on the lowest T-score value of -2.6 in the lumbar spine and history of fracture applying World Health Organization criteria. 2. 10-YEAR FRACTURE RISK PREDICTION, FRAX: According to the guidelines, FRAX calculation should only be performed on patients in the osteopenia bone density category. Therefore, FRAX was not performed on this patient. 3. Treatment Recommendations: NOF guidelines recommend consideration for treatment in postmenopausal women and men age 50 and older presenting with the following: -A hip or vertebral (clinical or morphometric) fracture. -T-score less than or equal to -2.5 at the femoral neck or spine after appropriate evaluation to exclude secondary causes. -Low bone mass at the hip or spine and a 10-year fracture probability by FRAX of greater than or equal to 3% for hip fracture or greater than or equal to 20% for major osteoporotic fracture based on the [place] adapted WHO algorithm. 4. Other Recommendations: All treatment decisions require clinical judgment and consideration of individual patient factors, including patient preferences, comorbidities, previous drug use, risk factors not captured in the FRAX model (e.g. frailty, falls, vitamin D deficiency, increased bone turnover, interval significant decline in bone density) and possible under or overestimation of fracture risk by FRAX. Additional medical evaluation for secondary cause of low bone mineral density may be appropriate. FUTURE SCAN RECOMMENDATION: People with diagnosed cases of osteoporosis or at high risk for fracture should have regular bone mineral density tests. For patients eligible for Medicare, routine testing is allowed once every 2 years. The testing frequency can be increased to one year for patients who have rapidly progressing disease, those who are receiving or discontinuing medical therapy to restore bone mass, or have additional risk factors.
== END 2024-01-01 09:59 | disposition home or self-care (01) ==
LOC: HO.MAMMO 09:58
PROVIDERS: PCP Internal Medicine; Visit Provider Nurse Practitioner Family
DX: M81.0 Age-related osteoporosis without current pathological fracture (principal); M06.9 Rheumatoid arthritis, unspecified; Z79.60 Long term (current) use of unspecified immunomodulators and immunosuppressants
CPT/HCPCS: 77080

== ENCOUNTER 2024-01-09 11:43 | Emergency (ER) | payer OTHER, SELFPAY ==
--- NOTE | ~2024-01-09 | XR_ITS ---
EXAMINATION: XR RIBS, RIGHT CLINICAL INFORMATION: Rib pain. COMPARISON: Chest 12/18/2022 TECHNIQUE: 3 views of the right ribs were obtained. FINDINGS: The lungs are somewhat expanded with increased interstitial markings both lungs slightly worse on the right side, likely pneumonitis. The heart size is enlarged with prominent pulmonary vascularity but congestion is not suspected. No pleural effusion or consolidation seen. There is mild degenerative changes right shoulder. There is a total left shoulder prosthesis. XR/XR ribs RT min 3V w CXR1V IMPRESSION: Increased bilateral interstitial markings slightly worse in the right side question pneumonitis, less likely interstitial edema or vascular congestion.
[2024-01-09 11:49] VITALS: BP 142/87; PULSE 75; RESP 16; TEMP 36.6; O2SAT 98; BMI 33.7
--- NOTE | 2024-01-09 11:49 | ED_ITS ---
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 Patient states that over the last week she has had right sided flank pain and pain with deep breathing. Patient denies any dizziness, lightheadedness, abdominal pain, nausea, vomiting, fever, chills, blurry vision, double vision, loss of vision, chest pain, difficulty breathing, shortness of breath, back pain, night sweats, pain with urination, increased urinary frequency, increased urinary urgency, blood in her urine or stool, syncope or a near syncopal episode, recent trauma or falls, bowel incontinence, bladder incontinence, bowel retention, bladder retention, or any other complaints at this time. Onset (ago): week(s) (1) Severity: mild Severity scale (1-10): 3 Quality: aching Pain Consistency: constant Relieving factors: none Exacerbating factors: none Associated symptoms: denies other symptoms Treatments prior to arrival: none Related Data Previous Rx's Medication Instructions Recorded albuterol sulfate 2.5 mg/3 mL 2.5 mg (3 mL) inhalation BID 30 02/17/22 (0.083 %) solution for nebulization days #180 mL Cock up splint #1 ea 04/12/22 atorvastatin 40 mg tablet 40 mg PO DAILY 90 days #90 tabs 12/07/22 gabapentin 600 mg tablet 600 mg PO TID 90 days #270 tabs 12/07/22 losartan 100 mg tablet 100 mg PO DAILY 90 days #90 tabs 07/23/23 sertraline 25 mg tablet 25 mg PO DAILY 90 days #90 tabs 08/12/23 tramadol 50 mg tablet 50 mg PO Q6H PRN pain #20 tabs 08/23/23 omeprazole 20 mg capsule,delayed 20 mg PO DAILY PRN heartburn 90 08/26/23 release days #90 caps cane #1 ea 08/30/23 cane #1 ea 09/05/23 prednisone 5 mg tablet 10 mg (2 x 5 mg) PO DAILY #60 ea 09/12/23 rivaroxaban 20 mg tablet (Xarelto) 20 mg PO DAILY #90 tabs 09/14/23 abatacept 125 mg/mL subcutaneous 125 mg subcut QWEEK #4 mL 10/17/23 auto-injector (Orencia ClickJect) atenolol 25 mg tablet 25 mg PO DAILY 90 days #90 tabs 12/16/23 flecainide 100 mg tablet 100 mg PO Q12H 90 days #180 tabs 12/16/23 acetaminophen 650 mg 650 mg PO Q6-8H PRN pain 30 days 12/18/23 tablet,extended release #120 tabs budesonide 0.5 mg/2 mL suspension 0.5 mg (2 mL) inhalation DAILY 30 01/01/24 for nebulization days #60 mL cefuroxime axetil 250 mg tablet 500 mg (2 x 250 mg) PO BID 7 days 01/09/24 #28 tabs Allergies Allergy/AdvReac Type Severity Reaction Status Date / Time No Known Allergies Allergy Verified 01/09/24 11:49 [No Known Allergies*] Review of Systems 2 Constitutional: Constitutional: Reports no additional constitutional complaints, Denies chills, Denies fever(s) and Denies night sweats Eyes: Eyes: Reports no additional eye complaints, Denies blurry vision, Denies change in vision, Denies diplopia, Denies eye discharge, Denies loss of vision and Denies eye pain ENT: Denies dizziness Cardiovascular: Cardiovascular: Reports no additional cardiovascular complaints, Denies chest pain, Denies lightheadedness, Denies Loss of Consciousness and Denies dyspnea Respiratory: Respiratory: Reports no additional respiratory complaints and Denies dyspnea Gastrointestinal: Gastrointestinal: Reports no additional gastrointestinal complaints, Denies abdominal pain, Denies melena, Denies hematochezia, Denies change in bowel habits and Denies change in stool character Genitourinary: Genitourinary: Denies hematuria, Denies urinary frequency, Denies dysuria, Denies urinary incontinence, Denies urinary hesitancy and Denies urinary urgency Comments: right flank pain Musculoskeletal: Musculoskeletal: Reports no additional musculoskeletal complaints, Denies numbness and Denies tingling Neurologic: Denies dizziness, Denies loss of vision, Denies numbness and Denies tingling Psychiatric: Psychiatric: Reports no additional psychiatric complaints Endocrine: Endocrine: Reports no additional endocrine complaints Hematologic/Lymphatic: Hematologic/Lymphatic: Reports no additional hematologic/lymphatic complaints Allergic/Immunologic: Allergic/Immunologic: Reports no additional allergic/immunologic complaints [facility] Past Medical History Attestation statement: The following information was validated with the patient. Source: old records reviewed and nursing notes reviewed Medical History Abdominal discomfort Left shoulder pain Right wrist pain Right shoulder pain Obesity (BMI 30-39.9) Preoperative clearance Abnormal chest x-ray Obesity Pneumonitis Breast pain, left Diastolic dysfunction Pre-op chest exam Osteoarthritis of shoulders, bilateral Asthma-COPD overlap syndrome Personal history of nicotine dependence History of CVA (cerebrovascular accident) (~2017) ILD (interstitial lung disease) Post-menopausal Hypoxia Seropositive rheumatoid arthritis Right hemiplegia (~2017) Chronic anticoagulation GERD (gastroesophageal reflux disease) Rheumatoid arthritis Obstructive sleep apnea on CPAP Essential hypertension Paroxysmal atrial fibrillation (~2017) Pure hypercholesterolemia Surgical History History of appendectomy History of foot surgery History of shoulder surgery Family History Family History Father No problems noted. Mother No problems noted. Brother Stomach cancer Social History Social History Household Members: None Housing: House Do you presently have visiting nurse or other home services: No Alcohol intake: current Alcohol intake frequency: holidays/special occasions only Alcohol type: beer Patient Tobacco Use Status: Former Tobacco user Quit Date: 6 yrs ago Tobacco use type: Cigarette Years Smoked: 20 years e-Cigarette/Vaping Use: Never Used Second Hand Smoke Exposure: No Advance Directives: No Advance Directives Information Provided: No service: No Current occupational status: retired Cognitive needs: No Hearing needs: No Vision needs: No Physical Exam ED Vital Signs: Vital Signs - 24 hr 01/09/24 11:49 Temperature 98 F Pulse Rate 75 Respiratory Rate 16 Blood Pressure 142/87 H Pulse Oximetry 98 BMI result Body Mass Index 33.7 Const General: cooperative, no acute distress, alert and awake Nutritional Appearance: well nourished Orientation/consciousness: patient oriented x3 Limitations: no limitations HENMT Head: Yes normal to inspection and Yes atraumatic Ears: hearing grossly normal bilaterally and external ears normal General nose exam: Normal external nose present, no nasal discharge noted and no epistaxis Face and sinus: Yes normal facial exam, No abrasion and No laceration Mouth: Normal oral and palatal mucosa present, no drooling and no muffled voice Eyes General: appearance normal, both eyes and all related structures Periorbital: periorbital findings normal Eyelids: Yes eyelids normal Conjunctivae: conjunctivae normal Pupils: Equal, round and reactive pupils present EOM: EOMs intact bilaterally Neck Neck: Yes normal visual inspection, Yes full ROM and Yes no lymphadenopathy Chest Chest palpation & inspection: normal inspection of the chest Resp Effort & Inspection: normal respiratory effort and able to speak in complete sentences GI Inspection: Yes normal to inspection Neuro General: patient oriented x3 and moves all extremities Cranial nerves: Yes Equal, round and reactive pupils present Cognition (Neuro): normal cognition Motor exam (neuro): 5/5 motor strength present throughout Sensory Exam: Normal double simultaneous stimulation for sensation Coordination: [id number] test normal Extrem General: Yes normal to inspection, Yes full ROM and Yes capillary refill normal Psych Appearance: grossly normal Mental Status: mental status grossly normal Affect: normal affect Attitude: cooperative Thought process: Normal thought process present Thought content: Normal thought content present Insight: Good insight present (Psych) Course Course Course Narrative: This is a rapid medical exam: Additional HPI, ROS, PE not included below will be deferred to primary provider. Patient is a 68-year-old female presenting to the emergency department with complaint of right mid back pain for the past week, worse with movement, palpation, and inspiration. She denies fall or other trauma. Plan: UA Medications Administered Discontinued Medications Generic Name Dose Route Start Last Admin Trade Name Freq PRN Reason Stop Dose Admin Sodium Chloride 1,000 mls @ 999 mls/hr 01/09/24 13:00 01/09/24 14:06 Ns IV 01/09/24 14:00 999 mls/hr .Q1H1M RIAZ Administration Medical Decision Making Medical Decision Making MDM Narrative: Patient is a 68 year old assigned female at with a history of asthma, CVA, and atrial fib presenting to the emergency department today with right flank pain. Patient's physical exam was unremarkable. Patient's blood work was unremarkable. Patient's urine showed a possible UTI, given patient's symptoms will treat. Patient's chest/right rib x-ray showed evidence of right sided pneumonitis. I explained my physical exam findings as well as all test results to the patient. I answered all questions asked by the patient. I stressed the importance of the patient taking her medication as prescribed. I stressed the importance of the patient following up with her primary care provider. I stressed the importance of the patient returning to the emergency department immediately if her symptoms were to worsen or if she were to develop any dizziness, shortness of breath, difficulty breathing, chest pain, blurry vision, loss of vision, nausea, vomiting, abdominal pain, fever, chills, back pain, or any other complaints. Patient verbalized agreement and understanding with this treatment plan and discharge. Differential Diagnosis Differential Diagnoses: The differential diagnosis associated with the presentation includes Pneuomnitis Rib pain Flank pain UTI Admission/Observation Consideration of admission/observation: Escalation of care including admission/observation considered Patient would have been admitted to the hospital had her work up had any findings where hospital admission was appropriate and her clinical presentation warranted hospital admission. Lab Data [facility] Lab Attestation statement: I reviewed the patient's lab results. My interpretation of these results are in the [facility] Rationale portion of this note. 01/09/24 13:55 01/09/24 13:55 Labs: Lab Results 01/09/24 01/09/24 Range/Units 13:15 13:55 WBC 8.3 (4.8-10.8) X10*3/uL RBC 4.70 (4.20-5.50) X10*6/uL Hgb 12.8 (12.0-16.0) g/dl Hct 41.2 (37.0-47.0) % MCV 87.7 (80.0-98.0) fL MCH 27.2 (27.0-33.0) pg MCHC 31.1 (31.0-35.0) g/dl RDW 14.0 (11.0-16.0) % Plt Count 205 (160-400) X10*3/uL MPV 11.7 (9.4-12.3) fL Immature Gran % (Auto) 0.2 (0.0-0.4) % Neut % (Auto) 75.9 H (45-73) % Lymph % (Auto) 17.5 L (20-40) % [place] % (Auto) 4.9 (2-11) % Eos % (Auto) 0.8 (0-4) % Baso % (Auto) 0.7 (0-2) % Lymph # (Auto) 1.5 (1.2-4.9) X10*3/uL [place] # (Auto) 0.4 (0.1-1.2) X10*3/uL Eos # (Auto) 0.1 (0.0-0.4) X10*3/uL Baso # (Auto) 0.1 (0.0-0.2) X10*3/uL Abs Immat Gran (auto) 0.02 (0.00-0.03) X10*3/uL Absolute Neuts (auto) 6.3 (2.0-8.3) x10*3/uL Absolute Nucleated RBC 0.000 (0.0-0.012) X10*3/uL Nucleated RBC % (auto) 0.0 (0.0-0.2) /100WBC Sodium 140 (135-145) mmol/L Potassium 4.1 (3.3-5.1) mmol/L Chloride 110 H (96-108) mmol/L Carbon Dioxide 24 (22-29) mmol/L Anion Gap 10 L (12-20) BUN 13 (9-16) mg/dL Creatinine 0.71 (0.5-1.4) mg/dL Estim Creat Clear Calc 66.3 Estimated GFR > 60 Random Glucose 103 (60-115) mg/dL Calcium 9.3 (8.4-10.2) mg/dL Magnesium 2.1 (1.6-2.6) mg/dL Total Bilirubin 0.3 (0.0-1.0) mg/dL AST 18 (5-31) U/L ALT 14 (0-31) U/L Alkaline Phosphatase 64 (39-117) U/L Total Protein 7.8 (6.5-8.0) g/dL Albumin 3.8 (3.5-5.0) g/dL Urine Color Dark Yellow Urine Appearance Cloudy Urine pH 5.5 (5.0-9.0) Ur Specific P[place] >= 1.030 H (1.005-1.025) Urine Protein Trace (Neg-Trace) mg/dL Urine Glucose (UA) Negative (Negative) mg/dL Urine Ketones Trace (Negative) mg/dL Urine Blood Negative (Negative) Urine Nitrite Negative (Negative) Ur Leukocyte Esterase Trace H (Negative) Urine RBC 0-2 (0-2) /HPF Urine WBC 0-5 (0-5) /HPF Ur Squamous Epith Cells 11-20 (0-2) /HPF Urine Bacteria Trace (None Seen) Hyaline Casts 0-2 (0-2) /LPF Independent Interpretation I performed an independent interpretation of an: Plain X-Ray Interpretation: My interpretation is in agreement with the radiologist's impression of this imaging study. - EXAMINATION: XR RIBS, RIGHT CLINICAL INFORMATION: Rib pain. COMPARISON: Chest 12/18/2022 TECHNIQUE: 3 views of the right ribs were obtained. FINDINGS: The lungs are somewhat expanded with increased interstitial markings both lungs slightly worse on the right side, likely pneumonitis. The heart size is enlarged with prominent pulmonary vascularity but congestion is not suspected. No pleural effusion or consolidation seen. There is mild degenerative changes right shoulder. There is a total left shoulder prosthesis. XR/XR ribs RT min 3V w CXR1V IMPRESSION: Increased bilateral interstitial markings slightly worse in the right side question pneumonitis, less likely interstitial edema or vascular congestion. Dictated By: Jimmie Liu MD Signed By: Electronically signed by Jimmie Liu MD 01/09/24 9400 Radiology Impression Discussion of test interpretation with radiology: I have reviewed the radiologist's reading. Prescription Management I considered prescription management with: Antibiotic (patient prescribed an antibiotic) Discharge Plan Discharge Clinical Impression: Pneumonitis, Acute flank pain, Acute UTI Patient Disposition: Home, Self-Care Instructions: Flank Pain (ED), Urinary Tract Infection in Older Adults (ED) Additional Instructions: Your chest x-ray shows evidence of penumonitis (inflammation of the lungs) and your urine shows a possible urinary tract infection. Please take the antibitioc prescribed for this. Follow up with your primary care provider. Return to the emergency department immediately if your symptoms worsen or if you develop any dizziness, shortness of breath, difficulty breathing, chest pain, blurry vision, loss of vision, nausea, vomiting, abdominal pain, fever, chills, back pain, or any other complaints. Jo radiograf?a de t?rax muestra evidencia de penumonitis (inflamaci?n de los pulmones) y jo orina muestra tyler posible infecci?n del tracto urinario. Centuria el antibi?jodi prescrito para ello. Carlo un seguimiento con jo proveedor de atenci?n primaria. Regrese al departamento de emergencias inmediatamente si curtis s?ntomas empeoran o si presenta mareos, dificultad para respirar, dificultad para respirar, dolor en el pecho, visi?n borrosa, p?rdida de la visi?n, n?useas, v?mitos, dolor abdominal, fiebre, escalofr?os, dolor de espalda o cualquier otras quejas. Prescriptions: New cefuroxime axetil 250 mg tablet 500 mg PO BID 7 Days Qty: 28 0RF No Action (DME) Cock up splint See Rx Instructions .Route .MEDSUPPLY Qty: 1 0RF Rx Instructions: Wear on right wrist at night. atorvastatin 40 mg tablet 40 mg PO DAILY 90 Days Qty: 90 3RF gabapentin 600 mg tablet 600 mg PO TID 90 Days Qty: 270 3RF losartan 100 mg tablet 100 mg PO DAILY 90 Days Qty: 90 1RF sertraline 25 mg tablet 25 mg PO DAILY 90 Days Qty: 90 1RF omeprazole 20 mg capsule,delayed release(DR/EC) 20 mg PO DAILY PRN (Reason: heartburn) 90 Days Qty: 90 1RF (DME) cane See Rx Instructions .Route .MEDSUPPLY Qty: 1 0RF Rx Instructions: As directed (DME) cane Device See Rx Instructions .Route Qty: 1 0RF Rx Instructions: As directed prednisone 5 mg tablet 10 mg PO DAILY Qty: 60 3RF Xarelto 20 mg tablet 20 mg PO DAILY Qty: 90 2RF Orencia ClickJect 125 mg/mL auto-injector 125 mg subcut QWEEK Qty: 4 5RF atenolol 25 mg tablet 25 mg PO DAILY 90 Days Qty: 90 5RF Rx Instructions: Keep appt on 12/04/[address] Montoya. flecainide 100 mg tablet 100 mg PO Q12H 90 Days Qty: 180 0RF acetaminophen 650 mg tablet extended release 650 mg PO Q6-8H PRN (Reason: pain) 30 Days Qty: 120 5RF budesonide 0.5 mg/2 mL suspension for nebulization 0.5 mg inhalation DAILY 30 Days Qty: 60 11RF tramadol 50 mg tablet 50 mg PO Q6H PRN (Reason: pain) Qty: 20 0RF albuterol sulfate 2.5 mg /3 mL (0.083 %) solution for nebulization 2.5 mg inhalation BID 30 Days Qty: 180 11RF Referrals: Dafne Betancourt MD [Primary Care Provider] - Print Language: Moldovan
[2024-01-09 13:24] LABS: Appearance Urine Cloudy; Color Urine Dark Yellow; Glucose Urine UA Negative (Negative); Leukocyte Esterase Urine Trace (Negative); Nitrite Urine Negative (Negative); PH 5.5 (5.0-9.0); Specific Gravity - Urine >= 1.030 (1.005-1.025); UMIC TRIGGER UACC YES; Urine Blood Negative (Negative); Urine Ketones Trace mg/dL (Negative); Urine Protein Trace mg/dL (Neg-Trace)
[2024-01-09 13:35] LABS: Bacteria Urine Trace (None Seen); Hyaline Casts Urine 0-2 /LPF (0-2); RBC Urine 0-2 /HPF (0-2); WBC Urine 0-5 /HPF (0-5)
[2024-01-09 13:59] LABS: MANUAL DIFF FLAG NO
[2024-01-09 14:06] LABS: Basophils Absolute Auto 0.1 X10*3/uL (0.0-0.2); Basophils Percent Auto 0.7 % (0-2); Eosinophils Absolute Auto 0.1 X10*3/uL (0.0-0.4); Eosinophils Percent Auto 0.8 % (0-4); Hematocrit 41.2 % (37.0-47.0); Hemoglobin 12.8 g/dl (12.0-16.0); Imm Gran Abs Auto 0.02 X10*3/uL (0.00-0.03); Imm Gran Pct Auto 0.2 % (0.0-0.4); Lymphocytes Absolute Auto 1.5 X10*3/uL (1.2-4.9); Lymphocytes Percent Auto 17.5 % (20-40); Mean Corpuscular HGB Conc 31.1 g/dl (31.0-35.0); Mean Corpuscular Hemoglobin 27.2 pg (27.0-33.0); Mean Corpuscular Volume 87.7 fL (80.0-98.0); Mean Platelet Volume 11.7 fL (9.4-12.3); Monocytes Absolute Auto 0.4 X10*3/uL (0.1-1.2); Monocytes Percent Auto 4.9 % (2-11); Neutrophils Absolute Auto 6.3 x10*3/uL (2.0-8.3); Neutrophils Percent Auto 75.9 % (45-73); Platelet Count 205 X10*3/uL (160-400); White Blood Count 8.3 X10*3/uL (4.8-10.8)
[2024-01-09] MEDS: 0.9 % Sodium Chloride 1,000 ML 999 ML IV (14:06)
[2024-01-09 14:16] LABS: Alanine Aminotransferase 14 U/L (0-31); Albumin Level 3.8 g/dL (3.5-5.0); Alkaline Phosphatase 64 U/L (39-117); Anion Gap 10 (12-20); Aspartate Amino Transferase 18 U/L (5-31); Bilirubin Total 0.3 mg/dL (0.0-1.0); Blood Urea Nitrogen 13 mg/dL (9-16); Calcium 9.3 mg/dL (8.4-10.2); Carbon Dioxide 24 mmol/L (22-29); Chloride 110 mmol/L (96-108); Creatinine Clr Calc Pharmacy 66.3; Estimated Glomerular Filt Rate > 60; Glucose Random 103 mg/dL (60-115); Magnesium 2.1 mg/dL (1.6-2.6); Potassium 4.1 mmol/L (3.3-5.1); Sodium 140 mmol/L (135-145); Total Protein 7.8 g/dL (6.5-8.0)
== END 2024-01-09 16:06 | disposition home or self-care (01) ==
PROVIDERS: Physician Assistant Medical; Emergency Provider Emergency Medicine; PCP Internal Medicine
DX: N39.0 Urinary tract infection, site not specified (principal); J98.4 Other disorders of lung; R10.9 Unspecified abdominal pain; J45.909 Unspecified asthma, uncomplicated; Z86.73 Personal history of transient ischemic attack (TIA), and cerebral infarction without residual deficits
CPT/HCPCS: 36415; 51798; 71101; 80053; 81001; 83735; 85025; 99283; 99284

== ENCOUNTER 2024-01-14 08:46 | Outpatient (REF) | payer OTHER, SELFPAY ==
[2024-01-14 10:05] LABS: Alanine Aminotransferase 19 U/L (0-31); Albumin Level 3.8 g/dL (3.5-5.0); Alkaline Phosphatase 59 U/L (39-117); Anion Gap 14 (12-20); Aspartate Amino Transferase 21 U/L (5-31); Bilirubin Total 0.5 mg/dL (0.0-1.0); Blood Urea Nitrogen 14 mg/dL (9-16); Carbon Dioxide 26 mmol/L (22-29); Chloride 107 mmol/L (96-108); Cholesterol 124 mg/dL (<200); Estimated Glomerular Filt Rate > 60; Glucose Fasting 91 mg/dL (60-99); HDL Cholesterol 35 mg/dL (>40); LDL Cholesterol Calculated 65 mg/dL (<100); Potassium 4.3 mmol/L (3.3-5.1); Sodium 143 mmol/L (135-145); Triglycerides 121 mg/dL (<150)
[2024-01-17 12:48] LABS: NT-proBNP 1062 pg/mL (<125)
== END 2024-01-14 08:47 | disposition home or self-care (01) ==
LOC: HO.LAB 08:46
PROVIDERS: PCP Internal Medicine; Visit Provider Internal Medicine
DX: E78.5 Hyperlipidemia, unspecified (principal); I50.30 Unspecified diastolic (congestive) heart failure
CPT/HCPCS: 36415; 80053; 80061; 83880

== ENCOUNTER 2024-01-17 10:29 | Outpatient (AMB) | payer OTHER, SELFPAY ==
[2024-01-17 10:39] VITALS: BP 108/70; PULSE 93; O2SAT 96; BMI 33.5
--- NOTE | 2024-01-17 10:39 | A.OFFPC_ITS ---
Vital Signs 01/17/24 10:39 Height 4 ft 11 in Weight 166 lb BMI 33.5 BP 108/70 Blood Pressure Location Lt brachial Position Sitting Pulse 93 Pulse Source Pulse Oximeter Pulse Oximetry (%) 96 Oxygen Delivery Method Room Air Intake Visit Reasons: Annual Exam Intake Note: Patient here for a physical exam Precision Instrument Maker Required: No Accompanied by: Self / Same As Patient Allergies No Known Allergies [No Known Allergies*] Allergy (Verified 01/17/24 11:03) Medication List - Last Reconciled 01/17/24 by Dafne Pollard MD abatacept (Orencia ClickJect) 125 mg subcut QWEEK acetaminophen ER 650 mg PO Q6-8H PRN 30 days albuterol sulfate 2.5 mg (3 mL) inhalation BID 30 days atenolol 25 mg PO DAILY 90 days atorvastatin 40 mg PO DAILY 90 days budesonide 0.5 mg (2 mL) inhalation DAILY 30 days [cane As directed] cane As directed [Cock up splint Wear on right wrist at night. ] flecainide 100 mg PO Q12H 90 days gabapentin 600 mg PO TID 90 days losartan 100 mg PO DAILY 90 days omeprazole 20 mg PO DAILY PRN 90 days prednisone 10 mg (2 x 5 mg) PO DAILY rivaroxaban (Xarelto) 20 mg PO DAILY sertraline 25 mg PO DAILY 90 days tramadol 50 mg PO Q6H PRN Tobacco use date assessed: 01/17/24 Fall risk assessment: No Falls in past year Last assessed Fall Risk: 01/17/24 Dental Screening Dental Screen Date: 01/17/24 Did you have a dental visit in the last 12 months?: No Did you have a dental problem in the last 6 months where you did not have access to dental care?: No Was dental information given to patient?: Patient has dentist HPI HPI Comments History of Present Illness Details This is a 68-year-old female with rheumatoid arthritis, asthma-COPD overlap syndrome, paroxysmal atrial fibrillation, diastolic heart failure, right hemiplegia as a residual deficit from old lacunar infarcts in 2017 and mild major depression that comes for her physical exam. On Orencia for her rheumatoid arthritis and still complains of pain. This is follow by R heumatology. Bone density test done recently shows severe osteoporosis and will see Rheumatology next week. Asthma-COPD overlap syndrome has been stable with long-acting inhaler and follow by pulmonology. On chronic anticoagulation for atrial fibrillation and is follow by cardiology. She denies any chest pain, shortness on breath or leg swelling. Diastolic heart failure is also follow by cardiology. Mild major depression has markedly improved with SSRIs. Last mammogram was done 2022. As per patient had a fit test this year by a nurse that came to her house and was negative. Declines colonoscopy for now. Walks with no assistive device. [facility] Medical History (Updated 01/17/24 @ 12:07 by Dafne Pollard MD) Abdominal discomfort Left shoulder pain Right wrist pain Right shoulder pain Obesity (BMI 30-39.9) Preoperative clearance Abnormal chest x-ray Obesity Pneumonitis Breast pain, left Diastolic dysfunction Pre-op chest exam Osteoarthritis of shoulders, bilateral Asthma-COPD overlap syndrome Personal history of nicotine dependence History of CVA (cerebrovascular accident) (~2016) ILD (interstitial lung disease) Post-menopausal Hypoxia Seropositive rheumatoid arthritis Right hemiplegia (~2016) Chronic anticoagulation GERD (gastroesophageal reflux disease) Rheumatoid arthritis Obstructive sleep apnea on CPAP Essential hypertension Paroxysmal atrial fibrillation (~2016) Pure hypercholesterolemia Surgical History History of appendectomy History of foot surgery History of shoulder surgery Family History Father No problems noted. Mother No problems noted. Brother Stomach cancer Social History Household Members: None Housing: House Do you presently have visiting nurse or other home services: No Alcohol intake: current Alcohol intake frequency: holidays/special occasions only Alcohol type: beer Patient Tobacco Use Status: Former Tobacco user Quit Date: 6 yrs ago Tobacco use type: Cigarette Years Smoked: 20 years e-Cigarette/Vaping Use: Never Used Second Hand Smoke Exposure: No service: No Current occupational status: retired Cognitive needs: No Hearing needs: No Vision needs: No Questionnaire PHQ-9 Over the last 2 weeks, how often have you been bothered by any of the following problems? 1. Little interest or pleasure in doing things: several days 2. Feeling down, depressed, or hopeless: several days 3. Trouble falling or staying asleep, or sleeping too much: several days 4. Feeling tired or having little energy: several days 5. Poor appetite or overeating: several days 6. Feeling bad about yourself - or that you are a failure or have let yourself or your family down: not at all 7. Trouble concentrating on things, such as reading the newspaper or watching television: not at all 8. Moving or speaking so slowly that other people could have noticed. Or the opposite - being so fidgety or restless that you have been moving around a lot more than usual: several days 9. Thoughts that you would be better off or of hurting yourself in some way: not at all Total score: 6 Depression Screening Interpretation: Positive Depression Screening Follow-up: Existing condition and In treatment Depression Screening Done: Yes 76758 - PHQ-9 Billing: Yes Source: Developed by Drs. Kai Mejia, Jade Cheng, Neil Gannon and colleagues, with an educational phil from [employer]. Thrive Questionnaire Date Thrive assessed: 01/17/24 I am a: Patient What is your living situation today?: I have a steady place to live Within the past 12 months, did the food you bought not last and you didn't have the money to get more?: Never true Within the past 12 months, did you worry whether your food would run out before you got money to buy more?: Never true Do you have trouble paying for medicines?: No Do you have trouble getting transportation to medical appointments?: No Do you have trouble paying your heating and electricity bill?: No Do you have trouble taking care of your child, family member or friend?: No Do you have trouble with day-to-day activities such as bathing, preparing meals, shopping, managing finances, etc.?: No Are you currently unemployed and looking for a job?: No Are you interested in more education?: No Please select the resources that you would like help with: None Currently or been in a relationship where the following occur: no concerns reported THRIVE Score: 0 AUDIT C Alcohol Use Questionnaire (AUDIT-C) 1. How often do you have a drink containing alcohol?: Monthly or less 2. How many drinks containing alcohol do you have on a typical day when you are drinking?: 1 or 2 3. How often do you have six or more drinks on one occasion?: Never Total Score: 1 Score Reviewed/Action Taken: No GENNY-7 AMB Questionnaire GENNY-7 Date GENNY - 7 assessed: 01/17/24 Feeling nervous, anxious, or on edge: 1 = Several days Not being able to stop or control worryin = Not at all Worrying too much about different things: 1 = Several days Trouble relaxin = Not at all Being so restless that it is hard to sit still: 0 = Not at all Becoming easily annoyed or irritable: 1 = Several days Feeling afraid as if something awful might happen: 0 = Not at all Total GENNY-7 score (0-4 normal; 5-9 mild; 10-14 moderate; 15-21 severe): 3 Source: Developed by Drs. Kai Mejia, Jade Cheng, Neil Gannon and colleagues, with an educational phil from [employer]. GENNY-7 Assessment Billing GENNY-7 Assessment Tool: GENNY-7 Assessment 76318 Review of Systems Const All systems reviewed & are unremarkable except as noted in HPI and below Eyes Reports no additional complaints, Denies change in vision and Denies other visual disturbances Card Denies chest pain at rest, Denies chest pain with activity, Denies edema, Denies irregular heart rhythm, Denies claudication, Denies dyspnea, Denies dyspnea on exertion, Denies orthopnea, Denies paroxysmal nocturnal dyspnea and Denies slow heart rate Resp Denies cough, Denies dyspnea and Denies dyspnea on exertion GI Denies abdominal pain, Denies change in bowel habits, Denies excessive flatus, Denies nausea and Denies vomiting Denies urinary incontinence, Denies urinary hesitancy and Denies urinary urgency Musc Denies abnormal gait, Denies atrophy, Denies deformity and Denies limited range of motion Skin/Breast Denies bleeding lesions, Denies changing lesions and Denies rash Neuro Denies abnormal gait, Denies behavioral changes and Denies lack of coordination Psych Denies behavioral changes Physical exam (Primary Care) Vital Signs: Last Vital Signs Pulse 93 01/17/24 10:39 BP 108/70 01/17/24 10:39 Pulse Ox 96 01/17/24 10:39 Oxygen Delivery Method Room Air 01/17/24 10:39 BMI result Body Mass Index 33.5 Tobacco/Smoking Status: Tobacco use Status Tobacco use date assessed 01/17/24 01/17/24 10:45 Patient Tobacco Use Status Former Tobacco user 01/17/24 10:45 Tobacco use type Cigarette 01/17/24 10:45 e-Cigarette/Vaping Use Never Used 01/17/24 10:45 PHQ-9: PHQ-9 Score PHQ-9: Total score 6 01/17/24 11:10 Depression Screening Interpretation: Positive Depression Screening Follow-up: Existing condition and In treatment Thrive Assessment: Date of Thrive Assessment Date Thrive assessed 01/17/24 01/17/24 10:45 Currently or been in a relationship where the following occur: no concerns reported HENMT Head: Yes normal to inspection, Yes normocephalic and Yes atraumatic Ears: external ears normal Eyes General: appearance normal, both eyes and all related structures Eyelids: Yes eyelids normal Conjunctivae: conjunctivae normal Neck Neck: Yes normal visual inspection and Yes supple Resp Effort & Inspection: normal respiratory effort Auscultation: clear to auscultation bilaterally Cardio Jugular venous distension: no JVD Rate: regular rate Rhythm: regular rhythm Heart sounds: S1 normal heart sound present and S2 normal heart sound present GI Inspection: Yes normal to inspection Palpation (GI): Soft to palpation and nontender Auscultation: normal bowel sounds Skin General skin exam: no rashes or lesions noted Neuro Motor exam (neuro): Abnormal motor strength present (4/5 in right side, 5/5 left side) Extrem General: Yes full ROM Psych Appearance: grossly normal Assessment and Plan Assessment & Plan (1) Physical exam: Code(s): Z00.00 - Encounter for general adult medical examination without abnormal findings Plan: Repeat in a year. (2) Diastolic heart failure: Code(s): I50.30 - Unspecified diastolic (congestive) heart failure Plan: Continue losartan. The goal is to not gain 5 lb in a week. Follow-up with Cardiology. (3) Mild recurrent major depression: Code(s): F33.0 - Major depressive disorder, recurrent, mild Plan: Continue SSRIs. (4) Asthma-COPD overlap syndrome: Code(s): J44.9 - Chronic obstructive pulmonary disease, unspecified Plan: Continue long-acting inhaler. Use rescue inhaler as needed. Follow-up with pulmonology. (5) Paroxysmal atrial fibrillation: Onset Date: ~2016 Comment: (Dx 08/2017) Code(s): I48.0 - Paroxysmal atrial fibrillation Plan: Continue flecainide and doac. Follow-up with Cardiology. (6) Right hemiplegia: Onset Date: ~2016 Code(s): G81.91 - Hemiplegia, unspecified affecting right dominant side Plan: Continue atorvastatin for LDL goal less than 70. (7) Rheumatoid arthritis: Code(s): M06.9 - Rheumatoid arthritis, unspecified Qualifiers: Rheumatoid arthritis location: multiple sites Rheumatoid factor presen ce: with rheumatoid factor Qualified Code(s): M05.79 - Rheumatoid arthritis with rheumatoid factor of multiple sites without organ or systems involvement Plan: Continue Orencia. Follow-up with rheumatology. Orders: Referrals 2 Ear/Nose/Throat Referral H91.90 - Unspecified hearing loss, unspecified ear Ophthalmology Referral H53.8 - Other visual disturbances Coding Level of Care Code Est Pt Prev Care >65y(62012) Diagnoses Physical exam Z00.00 Diastolic heart failure I50.30 Mild recurrent major depression F33.0 Asthma-COPD overlap syndrome J44.9 Paroxysmal atrial fibrillation I48.0 Right hemiplegia G81.91 Rheumatoid arthritis involving multiple sites with positive rheumatoid factor M05.79 Rheumatoid arthritis location: multiple sites Rheumatoid factor presence: with rheumatoid factor Additional Codes GENNY-7 Assessment Billing - GENNY-7 Assessment Tool: GENNY-7 Assessment 00902 ([id number]) Time Spent (min) 38
== END 2024-01-17 11:18 | disposition home or self-care (01) ==
PROVIDERS: PCP Internal Medicine; Visit Provider Internal Medicine
DX: Z00.00 Encounter for general adult medical examination without abnormal findings (principal); I50.30 Unspecified diastolic (congestive) heart failure; F33.0 Major depressive disorder, recurrent, mild; J44.9 Chronic obstructive pulmonary disease, unspecified; I48.0 Paroxysmal atrial fibrillation; G81.91 Hemiplegia, unspecified affecting right dominant side; M05.79 Rheumatoid arthritis with rheumatoid factor of multiple sites without organ or systems involvement
CPT/HCPCS: 99397

== ENCOUNTER 2024-01-18 08:15 | Outpatient (AMB) | payer OTHER, SELFPAY ==
[2024-01-18 08:42] VITALS: BP 104/72; PULSE 80; BMI 34.0
--- NOTE | 2024-01-18 08:42 | MHC.OFFVIS ---
Intake Vital Signs 01/18/24 08:42 Height 4 ft 11 in Weight 168 lb 6.931 oz BMI 34.0 BP 104/72 Blood Pressure Location Lt brachial Position Sitting Pulse 80 Pulse Source Monitor Intake Visit Reasons: r/s 6 mos followup Police Commanding Officer Required: Yes Police Commanding Officer Language: Mongolian Allergies No Known Allergies [No Known Allergies*] Allergy (Verified 01/18/24 08:44) Medication List - Last Reconciled 01/18/24 by Noah Montoya MD abatacept (Orencia ClickJect) 125 mg subcut QWEEK acetaminophen ER 650 mg PO Q6-8H PRN 30 days albuterol sulfate 2.5 mg (3 mL) inhalation BID 30 days atenolol 25 mg PO DAILY 90 days atorvastatin 40 mg PO DAILY 90 days budesonide 0.5 mg (2 mL) inhalation DAILY 30 days [cane As directed] cane As directed [Cock up splint Wear on right wrist at night. ] flecainide 100 mg PO Q12H 90 days gabapentin 600 mg PO TID 90 days losartan 100 mg PO DAILY 90 days rivaroxaban (Xarelto) 20 mg PO DAILY sertraline 25 mg PO DAILY 90 days HPI HPI Comments History of Present Illness Details Leeanne comes for follow-up. History was obtained with help of merchandise flow manager. She says over the last 2 weeks she has been feeling increasingly tired and fatigued. Denies orthopnea, PND, leg edema. She says she also has some lack of balance. She also complains of diffuse muscle aches. She has been taking all her medications regularly. Noted today to be in atrial flutter with controlled ventricular rate. This is new for her. She has been taking his Xarelto regularly. Her proBNP done recently is elevated as expected due to recurrent atrial flutter fibrillation. Creatinine is within normal limits. She denies any exertional chest pain. Denies any prolonged palpitations, lightheadedness, syncope. No bleeding issues or neurologic events [facility] Medical History Abdominal discomfort Left shoulder pain Right wrist pain Right shoulder pain Obesity (BMI 30-39.9) Preoperative clearance Abnormal chest x-ray Obesity Pneumonitis Breast pain, left Diastolic dysfunction Pre-op chest exam Osteoarthritis of shoulders, bilateral Asthma-COPD overlap syndrome Personal history of nicotine dependence History of CVA (cerebrovascular accident) (~2017) ILD (interstitial lung disease) Post-menopausal Hypoxia Seropositive rheumatoid arthritis Right hemiplegia (~2017) Chronic anticoagulation GERD (gastroesophageal reflux disease) Rheumatoid arthritis Obstructive sleep apnea on CPAP Essential hypertension Paroxysmal atrial fibrillation (~2017) Pure hypercholesterolemia Surgical History History of appendectomy History of foot surgery History of shoulder surgery Family History Father No problems noted. Mother No problems noted. Brother Stomach cancer Social History Household Members: None Housing: House Do you presently have visiting nurse or other home services: No Alcohol intake: current Alcohol intake frequency: holidays/special occasions only Alcohol type: beer Patient Tobacco Use Status: Former Tobacco user Quit Date: 6 yrs ago Tobacco use type: Cigarette Years Smoked: 20 years e-Cigarette/Vaping Use: Never Used Second Hand Smoke Exposure: No service: No Current occupational status: retired Cognitive needs: No Hearing needs: No Vision needs: No Review of Systems Const Reports fatigue and Reports lethargy ENT Reports dizziness Card Denies chest pain, Denies chest pain at rest, Denies chest pain with activity, Denies rapid heart rate, Denies pedal edema, Denies edema, Denies leg edema, Denies lightheadedness, Denies palpitations, Denies dyspnea, Denies dyspnea on exertion and Denies orthopnea Resp Denies cough, Denies dyspnea and Denies dyspnea on exertion GI Denies hematochezia and Denies change in stool character Musc Denies abnormal gait, Reports limited range of motion, Reports muscle cramps, Denies muscle weakness, Denies numbness, Denies radiating pain into limb, Denies stiffness and Denies tingling Neuro Denies abnormal gait, Reports dizziness, Denies numbness and Denies tingling Endo Reports fatigue and Denies palpitations Physical Exam Vital Signs: Last Vital Signs Pulse 80 01/18/24 08:42 BP 104/72 01/18/24 08:42 BMI result Body Mass Index 34.0 Const General: cooperative, comfortable, no acute distress, alert and awake Nutritional Appearance: obese Orientation/consciousness: patient oriented x3 Limitations: no limitations Neck Neck: Yes trachea midline, Yes supple and Yes no JVD Resp Effort & Inspection: normal respiratory effort Auscultation: clear to auscultation bilaterally and diminished lung sounds Cardio Jugular venous distension: no JVD Palpation: normal PMI Rhythm: abnormal rhythm irregularly irregular Heart sounds: S1 normal heart sound present, S2 normal heart sound present, no click, no gallops, no murmurs, no rubs and Other heart sounds present (S4 present) GI Auscultation: normal bowel sounds Neuro General: patient oriented x3 and no focal motor deficits Office Procedures EKG Details: EKG shows atrial flutter with variable conduction at 80 beats per minute [id number], Complete Assessment & Plan Assessment & Plan (1) Atrial flutter: Code(s): I48.92 - Unspecified atrial flutter Plan: Atrial flutter, persistent, new onset unclear duration but over the last few weeks. She would echocardiogram which shows severely dilated left ventricle. There is hypertensive heart disease with moderate LVH. I think this is what is causing her symptoms of exertional fatigue. She has done very well with rhythm control approach in the past with resolution of her heart failure syndrome. Will continue to pursue rhythm control approach. Given her LVH and well-controlled blood pressure without requiring much blood pressure need to evaluate for infiltrative disorder such as amyloidosis. Will pursue that after the next follow-up. Meanwhile will increase flecainide to 150 mg b.i.d. and schedule her next week for synchronized cardioversion. Discussed with her with help of merchandise flow manager the need for the procedure and risks, benefits, alternatives. She understands and agrees. Continue uninterrupted oral anticoagulation therapy with Xarelto. She is high risk for recurrent thromboembolic complication given her prior stroke. She understands management well. (2) Diastolic heart failure: Code(s): I50.30 - Unspecified diastolic (congestive) heart failure Plan: Prior history of diastolic heart failure in the setting of persistent atrial fibrillation. Has done well with rhythm control approach. ProBNP is elevated related to persistent atrial flutter fibrillation. Hopefully that will down trend and will check after maintaining rhythm. Follow up in the clinic in 4 weeks time. Thank you for allowing me to partake in the care Coding Level of Care Code Est Pt Level 4 (52301) Diagnoses Atrial flutter I48.92 Diastolic heart failure I50.30 CPT Codes EKG - CPT: 17915-[id number], Complete ([id number])
== END 2024-01-18 09:16 | disposition home or self-care (01) ==
PROVIDERS: PCP Internal Medicine; Visit Provider Internal Medicine Cardiovascular Disease
DX: I48.92 Unspecified atrial flutter (principal); I50.30 Unspecified diastolic (congestive) heart failure
CPT/HCPCS: 93010; 99214

== ENCOUNTER → 2024-01-18 08:15 | Outpatient (BNVA) | payer OTHER, SELFPAY | PROVIDERS: PCP Internal Medicine; Visit Provider Internal Medicine Cardiovascular Disease | DX: I48.92 Unspecified atrial flutter (principal); I50.30 Unspecified diastolic (congestive) heart failure | CPT/HCPCS: 93005; 99212 ==

== ENCOUNTER → 2024-01-23 08:57 | Day surgery (SDC) | payer OTHER, SELFPAY ==
--- NOTE | 2024-01-21 13:15 | HO.ANESPROP2 ---
HPI - Anesthesia Eval Consult details Narrative: 68yo F for Cardioversion Xarelto for afib Asthma, COPD, ILD, LOW. Last [facility] pulmo visit 12/2022 [facility] Active Problems Active Problems: All Active Problems (Updated 01/17/24 @ 12:07 by Dafne Pollard MD) Physical exam (Acute) Blurry vision (Acute) Hearing loss (Acute) Bursitis of right shoulder (Acute) Long-term use of immunosuppressant medication (Acute) Osteoarthritis of right glenohumeral joint (Acute) longterm methotrexate user (Acute) Mobitz I (Acute) Diastolic heart failure (Acute) Carpal tunnel syndrome of right wrist (Acute) Cubital tunnel syndrome on right (Acute) Mild recurrent major depression (Acute) Osteoporosis (Acute) Osteoarthritis of shoulders, bilateral (Acute) Asthma-COPD overlap syndrome (Acute) History of CVA (cerebrovascular accident) (Acute ~2017) Right hemiplegia (Acute ~2017) Paroxysmal atrial fibrillation (Acute ~2017) Chronic anticoagulation (Acute) Essential hypertension (Acute) Pure hypercholesterolemia (Acute) ILD (interstitial lung disease) (Acute) Hypoxia (Acute) Obstructive sleep apnea on CPAP (Acute) Personal history of nicotine dependence (Acute) GERD (gastroesophageal reflux disease) (Acute) Rheumatoid arthritis (Acute) Post-menopausal (Acute) Past Medical History Medical History Abdominal discomfort Left shoulder pain Right wrist pain Right shoulder pain Obesity (BMI 30-39.9) Preoperative clearance Abnormal chest x-ray Obesity Pneumonitis Breast pain, left Diastolic dysfunction Pre-op chest exam Osteoarthritis of shoulders, bilateral Asthma-COPD overlap syndrome Personal history of nicotine dependence History of CVA (cerebrovascular accident) (~2017) ILD (interstitial lung disease) Post-menopausal Hypoxia Seropositive rheumatoid arthritis Right hemiplegia (~2017) Chronic anticoagulation GERD (gastroesophageal reflux disease) Rheumatoid arthritis Obstructive sleep apnea on CPAP Essential hypertension Paroxysmal atrial fibrillation (~2017) Pure hypercholesterolemia Family History Family History Father No problems noted. Mother No problems noted. Brother Stomach cancer Family history of problems with anesthesia: No Surgical History Surgical History History of appendectomy History of foot surgery History of shoulder surgery History of Problems with Anesthesia: No Social History Social History Household Members: None Housing: House Do you presently have visiting nurse or other home services: No Alcohol intake: current Alcohol intake frequency: holidays/special occasions only Alcohol type: beer Patient Tobacco Use Status: Former Tobacco user Quit Date: 6 yrs ago Tobacco use type: Cigarette Years Smoked: 20 years e-Cigarette/Vaping Use: Never Used Second Hand Smoke Exposure: No service: No Current occupational status: retired Cognitive needs: No Hearing needs: No Vision needs: No Meds Allergies Allergy/AdvReac Type Severity Reaction Status Date / Time No Known Allergies Allergy Verified 01/18/24 08:44 [No Known Allergies*] Exam Pertinent Lab Results Pertinent Lab Results: Laboratory Tests 12/29/22 01/09/24 01/14/24 09:27 13:55 08:54 WBC 7.6 8.3 Hgb 13.1 12.8 Hct 42.3 41.2 Plt Count 220 205 Sodium 144 143 Potassium 4.5 4.3 Chloride 109 H 107 Carbon Dioxide 24 26 BUN 11 14 Creatinine 0.77 0.82 Narrative Narrative: EKG 01/2024 atrial flutter with variable conduction at 80 beats per minute ECHO 12/2023 Conclusions: - Normal left ventricular size and systolic function. There is moderately increased left ventricular wall thickness. The visually estimated ejection fraction is between 60-65%. There is no evidence of regional wall motion abnormalities. Diastolic function is indeterminate on the basis of available data. Reduced GLS -14.2 %. - There is mildly decreased right ventricular systolic function. RV size upper limit of normal. - The left atrium is severely dilated. The right atrium is moderately dilated. - There is severe mitral annular calcification. Assessment and Plan Assessment Anesthesia Assessment: Chart Reviewed Final Anesthetic Review Family History of Problems with Anesthesia: No History of Problems with Anesthesia: No
--- NOTE | 2024-01-23 09:22 | ECG_ITS ---
Test Reason : RHYTHM CHECK Blood Pressure : / mmHG Vent. Rate : 059 BPM Atrial Rate : 059 BPM P-R Int : 174 ms QRS Dur : 082 ms QT Int : 448 ms P-R-T Axes : 014 003 061 degrees QTc Int : 443 ms Sinus bradycardia Otherwise normal ECG When compared with ECG of 23-AUG-2023 21:27, No significant change was found Referred By: Noah Montoya Electronically Signed By:NOAH MONTOYA MD
--- NOTE | 2024-01-23 09:48 | PC.NURSE ---
Addendum entered by Evelyn Rodriguez RN 01/23/24 10:07: Dr Montoya at bedside, NSR confirmed from EKG. Caardioversion cancelled for today. Original Note: patient EK shows Sinus Bradycardia. Pateint still having some SOB, c/o chest pain more so after eating that last a few seconds . no c/o chest pain currently. Dr montoya aware.
== END ==
PROVIDERS: PCP Internal Medicine; Visit Provider Internal Medicine Cardiovascular Disease
DX: I48.92 Unspecified atrial flutter (principal); Z53.8 Procedure and treatment not carried out for other reasons
CPT/HCPCS: 93005

== ENCOUNTER → 2024-01-23 09:22 | Outpatient (BNV) | payer OTHER, SELFPAY | PROVIDERS: PCP Internal Medicine; Visit Provider Internal Medicine Cardiovascular Disease | DX: R00.1 Bradycardia, unspecified (principal) | CPT/HCPCS: 93010 ==

== ENCOUNTER 2024-01-25 10:20 | Outpatient (AMB) | payer OTHER, SELFPAY ==
--- NOTE | 2024-01-25 10:24 | MHC.OFFVIS ---
Intake Intake Visit Reasons: RA/Osteoporosis. prolia Intake Note: Patient last seen 10/25/23 by Pedro, presents today for Prolia injection and test results. Reports concerns with Orencia and its effectiveness c/o right hand pain and swelling as well as right arm limited ROM. Relish Maker Required: Yes Relish Maker Language: Zyglo Inspector Name: [id number] Information Interpreted: clinical only Accompanied by: Self / Same As Patient Allergies No Known Allergies [No Known Allergies*] Allergy (Verified 01/25/24 10:34) HPI HPI Comments History of Present Illness Details Today Ms. Fallon is complaining of right shoulder pain and swelling to bilateral 1st and 2nd MCP joints. She has not sure when it started but she says she has been having a lot of pain recently since last visit in October 2023. She continues to take her Orencia 125 mg q.week. she is also due for her Prolia today. She would also like an injection to her right shoulder. Prior Visit 10/25/2023 Ms. Fallon, 68 yoF Patient returns for follow-up of her rheumatoid arthritis. We use the [employer] translating service to obtain the history and facilitate the exam and treatment plan. She has difficulty hearing so often we had to have the ships or barges loader repeat the translations. She was last seen June 2023. She remains on Orencia 125 mg subcutaneously once a week, acetaminophen - two Arthritis Strength twice a day, gabapentin 600 mg 2-3 times a day, and 2.5 mg prednisone every other day. Prednisone is prescribed for the COPD/asthma that she has. She denies RA related stiffness and pain in her hands but reports discomfort to touch of her right hand due to overensitivity secondary to former stroke. There is also some low back pain but in general walking is limited more by her breathing than her joint pains. She reports occasional pain to her knees. She had a carpal tunnel and cubital tunnel release done back in March 2023. She does not think that helped much her hand symptoms. There still is numbness in both hands. There may be fewer hand paresthesias however. We started her on Prolia in January 2023 without apparent side effects. She had the 2/2 in July 2023 for osteoporosis. She has a history of a left shoulder replacement. That surgery apparently relieved her pain but she is left with not very good range of motion. And now the right shoulder has limited motion and quite a bit pain. She follows with Orthopedic who did the injection. PMH: asthma-COPD overlap syndrome, paroxysmal atrial fibrillation, diastolic heart failure, right hemiplegia as a residual deficit from old lacunar infarcts in 2017 and mild major depression [facility] Medical History (Updated 01/25/24 @ 10:58 by [facility]) Rheumatoid arthritis flare Abdominal discomfort Left shoulder pain Right wrist pain Right shoulder pain Obesity (BMI 30-39.9) Preoperative clearance Abnormal chest x-ray Obesity Pneumonitis Breast pain, left Diastolic dysfunction Pre-op chest exam Osteoarthritis of shoulders, bilateral Asthma-COPD overlap syndrome Personal history of nicotine dependence History of CVA (cerebrovascular accident) (~2016) ILD (interstitial lung disease) Post-menopausal Hypoxia Seropositive rheumatoid arthritis Right hemiplegia (~2017) Chronic anticoagulation GERD (gastroesophageal reflux disease) Rheumatoid arthritis Obstructive sleep apnea on CPAP Essential hypertension Paroxysmal atrial fibrillation (~2017) Pure hypercholesterolemia Surgical History History of appendectomy History of foot surgery History of shoulder surgery Family History Father No problems noted. Mother No problems noted. Brother Stomach cancer Social History Household Members: None Housing: House Do you presently have visiting nurse or other home services: No Alcohol intake: current Alcohol intake frequency: does not drink Alcohol type: beer Patient Tobacco Use Status: Former Tobacco user Quit Date: 6 yrs ago Tobacco use type: Cigarette Years Smoked: 20 years e-Cigarette/Vaping Use: Never Used Second Hand Smoke Exposure: No service: No Current occupational status: retired Cognitive needs: No Hearing needs: No Vision needs: No Office Procedures Joint Injection/Drain Joint Injection/Drain Primary Site: right shoulder Prep: site was prepped using aseptic technique Injected: 40 mg of, with 1 mL of and 1% plain lidocaine Approach Used: anterolateral Procedure: The patient tolerated the procedure well Coding 10945 - Large joint - Acromioclavicular Procedure code (CPT) selection complete Results Reviewed Results Reviewed: Ms. Fallon, Laboratory Tests 10/25/23 10/25/23 01/09/24 12:05 12:05 13:55 WBC 8.3 RBC 4.70 Hgb 12.8 Hct 41.2 ESR 63 H BUN Creatinine AST ALT C-Reactive Protein 0.47 01/14/24 01/14/24 08:54 08:54 WBC RBC Hgb Hct ESR BUN 14 Creatinine 0.82 AST 21 ALT 19 C-Reactive Protein Assessment & Plan Assessment & Plan (1) Long-term use of immunosuppressant medication: Code(s): Z79.60 - FDC (current) use of unspecified immunomodulators and immunosuppressants (2) Osteoporosis: Comment: Prolia-1st dose 01/19/2023 Code(s): M81.0 - Age-related osteoporosis without current pathological fracture Qualifiers: Osteoporosis type: age-related Presence of current pathological fracture: without current pathological fracture Qualified Code(s): M81.0 - Age-related osteoporosis without current pathological fracture (3) Rheumatoid arthritis involving multiple sites with positive rheumatoid factor: Code(s): M05.79 - Rheumatoid arthritis with rheumatoid factor of multiple sites without organ or systems involvement (4) Bursitis of right shoulder: Code(s): M75.51 - Bursitis of right shoulder Plan #RA/OA Shoulder bursitis: Mrs. Fallon is here for follow-up of Rheumatoid arthritis. Today she has swelling to bilateral MCP 1 and 2. There is also right shoulder pain with decreased range of motion - I think it is reasonable to give her a corticosteroid injection today. The patient is now saying today that whenever she comes to the office her joints usually are okay but she has been having more swelling and tenderness at home. A review of her labs does show that her ESR is consistently trending up so 1 wonders if there is adequate coverage for the RA. I will prescribe her a course of prednisone to get rid of the current flare and also leflunomide 10 mg q.d. to her regimen. I suspected she was stopped from using methotrexate because of deteriorating respiratory concerns, and evidence of ILD. Additionally her cardiac issues seem to be worsening based on review of cardiac visit notes. She will continue with the Orencia 125 mg QW. #Osteoporosis: Repeat DEXA scan January 2024 shows significant improvement in bone density. Lowest T-score -2.6 up from T-Score -3.8 on DEXA 10/2021. She receives a Prolia today and next one is scheduled for July 2024. #Sap Bi Architect Use: Her CBC, liver and kidney studies are good for Prolia today and to continue Orencia and add leflunomide. She denies side effects of medications. Individuals with chronic obstructive pulmonary disease (COPD) should be monitored closely as Orencia has been noted to increase the risk of COPD exacerbation.?In spite of her COPD this does not seem to have caused her significant flare ups or recent pulmonary infections. I spent 30 minutes reviewing history, evaluating patient and documenting Follow-up in 3 months to assess improvement on leflunomide, resolution of RA flare with prednisone and effectiveness of shoulder injection. Orders: Orders Comprehensive Met. Panel Today M06.9 - Rheumatoid arthritis, unspecified, Z79.60 - intermediate frame tender (current) use of unspecified immunomodulators and immunosuppressants Complete Blood Count Auto Diff Today M06.9 - Rheumatoid arthritis, unspecified, Z79.60 - intermediate frame tender (current) use of unspecified immunomodulators and immunosuppressants C Reactive Protein Today M06.9 - Rheumatoid arthritis, unspecified, Z79.60 - intermediate frame tender (current) use of unspecified immunomodulators and immunosuppressants Erythrocyte Sedimentation Rate Today M06.9 - Rheumatoid arthritis, unspecified, Z79.60 - intermediate frame tender (current) use of unspecified immunomodulators and immunosuppressants AMB Joint Injection/Aspiration Today M75.51 - Bursitis of right shoulder Medications: New prednisone 2 tablets per day x 14 days then 1 tablet per day x 14 days 45 tabs 0RF M06.9 - Rheumatoid arthritis, unspecified leflunomide 10 mg PO DAILY 30 tabs 2RF M06.9 - Rheumatoid arthritis, unspecified Coding Level of Care Code Est Pt Level 4 (97104) Diagnoses Long-term use of immunosuppressant medication Z79.60 Age-related osteoporosis without current pathological fracture M81.0 Osteoporosis type: age-related Presence of current pathological fracture: without current pathological fracture Rheumatoid arthritis involving multiple sites with positive rheumatoid factor M05.79 Bursitis of right shoulder M75.51 CPT Codes Coding - 29631 Large joint: 66294 - Large joint ([id number]) Coding - Joint 5: 40465 - Acromioclavicular ([id number])
== END 2024-01-25 11:01 | disposition home or self-care (01) ==
PROVIDERS: PCP Internal Medicine; Visit Provider Nurse Practitioner Family
DX: M05.79 Rheumatoid arthritis with rheumatoid factor of multiple sites without organ or systems involvement (principal); M81.0 Age-related osteoporosis without current pathological fracture; M75.51 Bursitis of right shoulder; Z79.60 Long term (current) use of unspecified immunomodulators and immunosuppressants
CPT/HCPCS: 20610; 99214

== ENCOUNTER → 2024-01-25 10:20 | Outpatient (BNVA) | payer OTHER, SELFPAY | PROVIDERS: PCP Internal Medicine; Visit Provider Nurse Practitioner Family | DX: M81.0 Age-related osteoporosis without current pathological fracture (principal); M75.51 Bursitis of right shoulder; M05.79 Rheumatoid arthritis with rheumatoid factor of multiple sites without organ or systems involvement; Z79.60 Long term (current) use of unspecified immunomodulators and immunosuppressants | CPT/HCPCS: 20610; 96372; 99212; J0897; J3301 ==

== ENCOUNTER → 2024-02-06 11:45 | Outpatient (REF) | payer OTHER, SELFPAY ==
--- NOTE | 2024-02-06 11:49 | HM_ITS ---
* Total monitoring time 3 days. * Underlying rhythm is sinus with an average rate of 86/Min. * Episodes of atrial fibrillation with rapid ventricular response noted. Fastest 181/Min. Longest about 2 days. Total burden 68%. * Rare ventricular ectopy. Rare supraventricular ectopy. * One sleep time pause of 2.5 seconds. During atrial fibrillation. Not significant. * No patient markers or diary events. MTDD
[2024-02-06 11:57] LABS: MANUAL DIFF FLAG NO
[2024-02-06 12:57] LABS: Basophils Absolute Auto 0.1 X10*3/uL (0.0-0.2); Basophils Percent Auto 0.6 % (0-2); Eosinophils Absolute Auto 0.1 X10*3/uL (0.0-0.4); Eosinophils Percent Auto 1.3 % (0-4); Hematocrit 43.4 % (37.0-47.0); Hemoglobin 13.5 g/dl (12.0-16.0); Imm Gran Abs Auto 0.04 X10*3/uL (0.00-0.03); Imm Gran Pct Auto 0.4 % (0.0-0.4); Lymphocytes Absolute Auto 1.7 X10*3/uL (1.2-4.9); Mean Corpuscular HGB Conc 31.1 g/dl (31.0-35.0); Mean Corpuscular Hemoglobin 27.6 pg (27.0-33.0); Mean Corpuscular Volume 88.6 fL (80.0-98.0); Mean Platelet Volume 12.6 fL (9.4-12.3); Monocytes Absolute Auto 0.8 X10*3/uL (0.1-1.2); Monocytes Percent Auto 7.8 % (2-11); Neutrophils Absolute Auto 7.9 x10*3/uL (2.0-8.3); Neutrophils Percent Auto 73.9 % (45-73); Platelet Count 175 X10*3/uL (160-400); Red Cell Distribution Width 14.3 % (11.0-16.0); White Blood Count 10.7 X10*3/uL (4.8-10.8)
[2024-02-06 13:24] LABS: Alanine Aminotransferase 16 U/L (0-31); Albumin Level 3.8 g/dL (3.5-5.0); Alkaline Phosphatase 78 U/L (39-117); Anion Gap 13 (12-20); Aspartate Amino Transferase 17 U/L (5-31); Bilirubin Total 0.4 mg/dL (0.0-1.0); Blood Urea Nitrogen 21 mg/dL (9-16); C Reactive Protein 0.25 mg/dL (< or = 0.50); Calcium 9.1 mg/dL (8.4-10.2); Carbon Dioxide 23 mmol/L (22-29); Chloride 110 mmol/L (96-108); Estimated Glomerular Filt Rate > 60; Glucose Random 88 mg/dL (60-115); Potassium 4.2 mmol/L (3.3-5.1); Sodium 142 mmol/L (135-145); Total Protein 7.9 g/dL (6.5-8.0)
[2024-02-06 14:04] LABS: Erythrocyte Sedimentation Rate 52 MM/HR (0-20)
== END ==
LOC: HO.CARD 11:45
PROVIDERS: Absent Provider Nurse Practitioner Family; PCP Internal Medicine; Visit Provider Internal Medicine Cardiovascular Disease
DX: I48.92 Unspecified atrial flutter (principal); M06.9 Rheumatoid arthritis, unspecified; Z79.60 Long term (current) use of unspecified immunomodulators and immunosuppressants
CPT/HCPCS: 36415; 80053; 85025; 85652; 86140; 93242

== ENCOUNTER → 2024-02-06 11:49 | Outpatient (BNV) | payer OTHER, SELFPAY | PROVIDERS: Absent Provider Nurse Practitioner Family; PCP Internal Medicine; Visit Provider Internal Medicine | DX: I48.92 Unspecified atrial flutter (principal) | CPT/HCPCS: 93244 ==

== ENCOUNTER 2024-03-21 09:22 | Inpatient (IN) | payer OTHER, SELFPAY ==
[2024-03-21] VITALS (20 sets, daily range): BP systolic 93–152; BP diastolic 43–91; PULSE 68–147; RESP 12–20; TEMP 36.6–36.7; O2SAT 94–100; BMI 38.0
--- NOTE | ~2024-03-21 | XR_ITS ---
EXAMINATION: XR CHEST CLINICAL INFORMATION: Reason for Exam chest pain COMPARISON: Chest radiograph 03/21/2024 TECHNIQUE: One view of the chest FINDINGS: Lines and tubes: EKG leads overlie the patient. Reverse left shoulder arthroplasty. Clear lungs. No pleural effusion. No pneumothorax. Unchanged cardiomediastinal silhouette. Osteoarthritis of the right shoulder. XR/XR chest 1V IMPRESSION: * Clear lungs.
--- NOTE | ~2024-03-21 | XR_ITS ---
EXAMINATION: XR CHEST CLINICAL INFORMATION: Chest pain. COMPARISON: Chest radiograph 01/09/2024. TECHNIQUE: 2 views of the chest were obtained. FINDINGS: Stable cardiomegaly. Increased interstitial markings with no focal consolidation. No pleural effusion or pneumothorax. Partially seen reverse left shoulder arthroplasty. Moderate to severe degenerative changes in the right shoulder. Thoracic spondylosis with kyphosis. No acute osseous findings. XR/XR chest 2V IMPRESSION: Increased bronchovascular markings that could be related with pulmonary edema, atypical/viral infection, small airways disease or underlying interstitial lung abnormality. Recommend short-term follow-up.
--- NOTE | 2024-03-21 09:34 | ECG_ITS ---
Test Reason : cp Blood Pressure : / mmHG Vent. Rate : 121 BPM Atrial Rate : 352 BPM P-R Int : 000 ms QRS Dur : 072 ms QT Int : 334 ms P-R-T Axes : 000 009 072 degrees QTc Int : 474 ms Atrial flutter with variable A-V block Abnormal ECG When compared with ECG of 23-JAN-2024 09:26, Atrial flutter has replaced Sinus rhythm Vent. rate has increased BY 62 BPM Referred By: Generic ED Physician Electronically Signed By:Brian Pacheco
--- NOTE | 2024-03-21 09:50 | ED.CHESTPAIN ---
HPI - Chest Pain General Chief Complaint: Chest Pain Stated Complaint: chest pain Time Seen by Provider: 03/21/24 09:49 Source: patient and elevator troubleshooter (all interactions with this patient were facilitated by an [facility] critical care clinical nurse specialist) Mode of arrival: ambulatory Limitations: language barrier (all interactions with this patient were facilitated by an [facility] critical care clinical nurse specialist) History of Present Illness HPI narrative: Patient is a 69 year old assigned female at with a history of RA, Mobitz I, diastolic heart failure, asthma-COPD, paroxysmal atrial fib, HTN, GERD, and chronic xarelto use presenting to the emergency department today with chest pain and jaw pain. Patient states that she woke up this morning with left sided chest pain and jaw pain. Patient denies any dizziness, lightheadedness, abdominal pain, nausea, vomiting, fever, chills, blurry vision, double vision, loss of vision, difficulty breathing, shortness of breath, back pain, night sweats, pain with urination, increased urinary frequency, increased urinary urgency, blood in her urine or stool, syncope or a near syncopal episode, recent trauma or falls, bowel incontinence, bladder incontinence, bowel retention, bladder retention, or any other complaints at this time. Pain radiation: jaw/teeth Severity: mild Exacerbating factors: nothing Treatment prior to arrival: none Related Data Home Medications ?Medication ?Instructions ?Recorded ?Confirmed denosumab 60 mg/mL subcutaneous mg subcut 01/25/24 syringe (Prolia) Previous Rx's ?Medication ?Instructions ?Recorded albuterol sulfate 2.5 mg/3 mL 2.5 mg (3 mL) inhalation BID 30 02/17/22 (0.083 %) solution for nebulization days #180 mL Cock up splint #1 ea 04/12/22 gabapentin 600 mg tablet 600 mg PO TID 90 days #270 tabs 12/07/22 cane #1 ea 08/30/23 cane #1 ea 09/05/23 rivaroxaban 20 mg tablet (Xarelto) 20 mg PO DAILY #90 tabs 09/14/23 atenolol 25 mg tablet 25 mg PO DAILY 90 days #90 tabs 12/16/23 flecainide 100 mg tablet 100 mg PO Q12H 90 days #180 tabs 12/16/23 acetaminophen 650 mg 650 mg PO Q6-8H PRN pain 30 days 12/18/23 tablet,extended release #120 tabs budesonide 0.5 mg/2 mL suspension 0.5 mg (2 mL) inhalation DAILY 30 01/01/24 for nebulization days #60 mL atorvastatin 40 mg tablet 40 mg PO DAILY 90 days #90 tabs 01/16/24 losartan 100 mg tablet 100 mg PO DAILY 90 days #90 tabs 01/18/24 leflunomide 10 mg tablet 10 mg PO DAILY #30 tabs 01/25/24 prednisone 5 mg tablet See Rx Instructions PO DAILY #45 01/25/24 tabs sertraline 25 mg tablet 25 mg PO DAILY 90 days #90 tabs 02/10/24 omeprazole 20 mg capsule,delayed 20 mg PO DAILY 90 days #90 caps 02/21/24 release abatacept 125 mg/mL subcutaneous 125 mg subcut QWEEK #4 mL 03/11/24 auto-injector (Orencia ClickJect) Allergies Allergy/AdvReac Type Severity Reaction Status Date / Time No Known Allergies Allergy Verified 03/21/24 09:32 [No Known Allergies*] Review of Systems Constitutional: Constitutional: Reports no additional constitutional complaints, Denies chills, Denies fever(s) and Denies night sweats Eyes: Eyes: Reports no additional eye complaints, Denies blurry vision, Denies change in vision, Denies diplopia, Denies eye discharge, Denies loss of vision and Denies eye pain ENT: Denies dizziness Comments: left sided jaw pain Cardiovascular: Cardiovascular: Reports no additional cardiovascular complaints, Reports chest pain, Denies lightheadedness, Denies Loss of Consciousness and Denies dyspnea Respiratory: Respiratory: Reports no additional respiratory complaints and Denies dyspnea Gastrointestinal: Gastrointestinal: Reports no additional gastrointestinal complaints, Denies abdominal pain, Denies melena, Denies hematochezia, Denies change in bowel habits and Denies change in stool character Genitourinary: Genitourinary: Denies hematuria, Denies urinary frequency, Denies dysuria, Denies urinary incontinence, Denies urinary hesitancy and Denies urinary urgency Musculoskeletal: Musculoskeletal: Reports no additional musculoskeletal complaints, Denies numbness and Denies tingling Neurologic: Denies dizziness, Denies loss of vision, Denies numbness and Denies tingling Psychiatric: Psychiatric: Reports no additional psychiatric complaints Endocrine: Endocrine: Reports no additional endocrine complaints Hematologic/Lymphatic: Hematologic/Lymphatic: Reports no additional hematologic/lymphatic complaints Allergic/Immunologic: Allergic/Immunologic: Reports no additional allergic/immunologic complaints [facility] Past Medical History Attestation statement: The following information was validated with the patient. Source: old records reviewed and nursing notes reviewed Medical History Rheumatoid arthritis flare Abdominal discomfort Left shoulder pain Right wrist pain Right shoulder pain Obesity (BMI 30-39.9) Preoperative clearance Abnormal chest x-ray Obesity Pneumonitis Breast pain, left Diastolic dysfunction Pre-op chest exam Osteoarthritis of shoulders, bilateral Asthma-COPD overlap syndrome Personal history of nicotine dependence History of CVA (cerebrovascular accident) (~2016) ILD (interstitial lung disease) Post-menopausal Hypoxia Seropositive rheumatoid arthritis Right hemiplegia (~2016) Chronic anticoagulation GERD (gastroesophageal reflux disease) Rheumatoid arthritis Obstructive sleep apnea on CPAP Essential hypertension Paroxysmal atrial fibrillation (~2016) Pure hypercholesterolemia Surgical History History of appendectomy History of foot surgery History of shoulder surgery Family History Family History Father No problems noted. Mother No problems noted. Brother Stomach cancer Social History Social History Household Members: None Housing: House Do you presently have visiting nurse or other home services: No Alcohol intake: current Alcohol intake frequency: does not drink Alcohol type: beer Patient Tobacco Use Status: Former Tobacco user Quit Date: 6 yrs ago Tobacco use type: Cigarette Years Smoked: 20 years Smoked in Last 30 Days: No e-Cigarette/Vaping Use: Never Used Second Hand Smoke Exposure: No Use of substances other than those prescribed or required for medical reasons: No Advance Directives: No Advance Directives Information Provided: No service: No Current occupational status: retired Cognitive needs: No Hearing needs: No Vision needs: No Physical Exam Vital Signs: Vital Signs: Last Vital Signs Temp 97.8 F 03/21/24 13:05 Pulse 74 03/21/24 13:10 Resp 18 03/21/24 13:10 BP 125/79 03/21/24 13:05 Pulse Ox 97 03/21/24 13:10 O2 Del Method Room Air 05/10/24 13:10 O2 Flow Rate 2 03/21/24 12:57 Oxygen Flow Rate 2 03/21/24 12:35 BMI result Body Mass Index 38.0 Const: General: cooperative, no acute distress, alert and awake Nutritional Appearance: well nourished Orientation/consciousness: patient oriented x3 Limitations: no limitations HEENT: Head: Yes normal to inspection and Yes atraumatic Ears: hearing grossly normal bilaterally and external ears normal General nose exam: Normal external nose present, no nasal discharge noted and no epistaxis Face and sinus: Yes normal facial exam, No abrasion and No laceration Mouth: Normal oral and palatal mucosa present, no drooling and no muffled voice Eyes: General: appearance normal, both eyes and all related structures Periorbital: periorbital findings normal Eyelids: Yes eyelids normal Conjunctivae: conjunctivae normal Pupils: Equal, round and reactive pupils present EOM: EOMs intact bilaterally Neck: Neck: Yes normal visual inspection, Yes full ROM and Yes no lymphadenopathy Chest: Chest palpation & inspection: normal inspection of the chest Resp: Effort & Inspection: normal respiratory effort and able to speak in complete sentences Auscultation: clear to auscultation bilaterally Cardio: Rate: tachycardic Rhythm: abnormal rhythm irregularly irregular GI: Inspection: Yes normal to inspection Neuro: General: patient oriented x3 and moves all extremities Cranial nerves: Yes Equal, round and reactive pupils present Cognition (Neuro): normal cognition Motor exam (neuro): 5/5 motor strength present throughout Sensory Exam: Normal double simultaneous stimulation for sensation Coordination: [id number] test normal Extrem: General: Yes normal to inspection, Yes full ROM and Yes capillary refill normal Psych: Appearance: grossly normal Mental Status: mental status grossly normal Affect: normal affect Attitude: cooperative Thought process: Normal thought process present Thought content: Normal thought content present Insight: Good insight present (Psych) Medications Administered Discontinued Medications Generic Name Dose Route Start Last Admin Trade Name Francisq PRN Reason Stop Dose Admin Fentanyl 50 mcg 03/21/24 12:58 03/21/24 12:35 Fentanyl Citrate/Pf 100 Mcg/2 Ml Vial IVPUSH 03/21/24 12:59 50 mcg ONCE ONE Administration Protocol Midazolam HCl 4 mg 03/21/24 12:11 03/21/24 12:35 Midazolam Hcl/Pf 2 Mg/2 Ml Vial IVPUSH 05/10/24 12:12 4 mg ONCE ONE Administration Procedures Procedure Narrative Procedure Narrative: Please see cardioversion procedure narrative in the MDM Rationale portion of this note. Dr. Barahona performed the conscious sedation as noted. Procedural Sedation ASA Class: II Mallampati Class: II Time of Last PO Intake: 00:00 Preparation: textile converter applied, pulse oximeter, capnometry used, supplemental O2 applied, suction/airway equipment at bedside and IV secured Fentanyl: IV (50mg) Fentanyl dose (mcg): 50 Midazolam: IV Midazolam dose (mg): 4 Patient Tolerated Procedure: well Complications: none Interventions: oxygen applied Medical Decision Making Medical Decision Making MDM Narrative: Patient is a 69 year old assigned female at with a history of RA, Mobitz I, diastolic heart failure, asthma-COPD, paroxysmal atrial fib, HTN, GERD, and chronic xarelto use presenting to the emergency department today with left sided chest pain and jaw pain. Patient's physical exam showed irregularly irregular tachycardia. Patient's blood work showed a minimally elevated BNP of 231 but were otherwise unremarkable. Patient's initial EKG showed rapid atrial flutter. Patient's chest x-ray showed increased bronchovascular markings but was otherwise unremarkable. I spoke to Dr. Pacheco who came down and evaluated the patient. After evaluation, he recommended cardioversion given the patient's presentation and coagulated status. I explained my physical exam findings as well as all test results to the patient. I answered all questions asked by the patient. Patient was sedated with IV Fentanyl and IV Versed with Dr. Barahona and RT at the bed side. Patient was attached to the cardioversion pads, the defibrillator synched, charged to 120J, confirmed everyone was clear of the patient and the bed, and the patient was shocked. Patient's rapid atrial flutter persisted. Procedure was repeated at 200J. Patient remained in rapid atrial flutter. I spoke to Dr. Pacheco who came to the bed side, adjusted the cardioversion pads, and repeated the cardioversion at 200J. Patient converted into NSR. Shortly after converting into NSR, the patient converted back into atrial flutter. Spoke with Dr. Pacheco again who recommended 150mg of Flecainide and admission for continued monitoring. I spoke to the hospitalist team who agreed to admission. Patient verbalized agreement and understanding with this treatment plan and admission. Differential Diagnosis Differential Diagnoses: The differential diagnosis associated with the presentation includes Atrial flutter with RVR Atrial fibrillation with RVR Persistent atrial flutter Chest pain NSTEMI STEMI Admission/Observation Consideration of admission/observation: Escalation of care including admission/observation considered Patient admitted. Consult Healthcare Provider Management of the patient was discussed with: Hospitalist (agreed to admission as noted in the MDM Rationale portion of this note.) and Photographer'S Model (consulted with cardiology as noted in the MDM Rationale portion of this note.) Lab Data [facility] Lab Attestation statement: I reviewed the patient's lab results. My interpretation of these results are in the MDM Rationale portion of this note. 03/21/24 09:50 03/21/24 09:50 Labs: Lab Results 03/21/24 03/21/24 03/21/24 Range/Units 09:50 09:55 11:01 WBC 8.3 (4.8-10.8) X10*3/uL RBC 4.73 (4.20-5.50) X10*6/uL Hgb 13.2 (12.0-16.0) g/dl Hct 41.2 (37.0-47.0) % MCV 87.1 (80.0-98.0) fL MCH 27.9 (27.0-33.0) pg MCHC 32.0 (31.0-35.0) g/dl RDW 14.9 (11.0-16.0) % Plt Count 187 (160-400) X10*3/uL MPV 11.9 (9.4-12.3) fL Immature Gran % (Auto) 0.2 (0.0-0.4) % Neut % (Auto) 65.9 (45-73) % Lymph % (Auto) 20.6 (20-40) % [place] % (Auto) 11.5 H (2-11) % Eos % (Auto) 1.3 (0-4) % Baso % (Auto) 0.5 (0-2) % Lymph # (Auto) 1.7 (1.2-4.9) X10*3/uL [place] # (Auto) 1.0 (0.1-1.2) X10*3/uL Eos # (Auto) 0.1 (0.0-0.4) X10*3/uL Baso # (Auto) 0.0 (0.0-0.2) X10*3/uL Abs Immat Gran (auto) 0.02 (0.00-0.03) X10*3/uL Absolute Neuts (auto) 5.5 (2.0-8.3) x10*3/uL Absolute Nucleated RBC 0.000 (0.0-0.012) X10*3/uL Nucleated RBC % (auto) 0.0 (0.0-0.2) /100WBC PT 20.7 H D (11.1-13.3) SEC INR 1.7 H (0.9-1.1) Sodium 141 (135-145) mmol/L Potassium 4.6 (3.3-5.1) mmol/L Chloride 113 H (96-108) mmol/L Carbon Dioxide 17 L (22-29) mmol/L Anion Gap 16 (12-20) BUN 11 (9-16) mg/dL Creatinine 0.76 (0.5-1.4) mg/dL Estim Creat Clear Calc 65.2 Estimated GFR > 60 Random Glucose 84 (60-115) mg/dL Calcium 8.9 (8.4-10.2) mg/dL Magnesium 2.2 (1.6-2.6) mg/dL Total Bilirubin 0.5 (0.0-1.0) mg/dL AST 32 H (5-31) U/L ALT 20 (0-31) U/L Alkaline Phosphatase 51 (39-117) U/L Troponin I High Sens 3.1 3.8 (<3.5-17.0) ng/L B-Natriuretic Peptide 231 H (<100) pg/mL Total Protein 7.8 (6.5-8.0) g/dL Albumin 3.6 (3.5-5.0) g/dL Independent Interpretation I performed an independent interpretation of an: EKG and Plain X-Ray Interpretation: My interpretation is in agreement with the radiologist's impression of this imaging study. EXAMINATION: XR CHEST CLINICAL INFORMATION: Chest pain. COMPARISON: Chest radiograph 01/09/2024. TECHNIQUE: 2 views of the chest were obtained. FINDINGS: Stable cardiomegaly. Increased interstitial markings with no focal consolidation. No pleural effusion or pneumothorax. Partially seen reverse left shoulder arthroplasty. Moderate to severe degenerative changes in the right shoulder. Thoracic spondylosis with kyphosis. No acute osseous findings. XR/XR chest 2V IMPRESSION: Increased bronchovascular markings that could be related with pulmonary edema, atypical/viral infection, small airways disease or underlying interstitial lung abnormality. Recommend short-term follow-up. Dictated By: Trisha Lynne Signed By: Electronically signed by Trisha Lynne 03/21/24 1016 Vent. Rate: 121 BPM Atrial Rate: 352 BPM P-R Int: 000 ms QRS Dur: 072 ms QT Int: 334 ms P-R-T Axes: 000 009 072 degrees QTc Int: 474 ms Atrial flutter with variable A-V block Abnormal ECG When compared with ECG of 23-JAN-2024 09:26, Atrial flutter has replaced Sinus rhythm Vent. rate has increased BY 62 BPM DD/ 925 Vent. Rate: 069 BPM Atrial Rate: 069 BPM P-R Int: 170 ms QRS Dur: 064 ms QT Int: 394 ms P-R-T Axes: 030 -07 055 degrees QTc Int: 422 ms Normal sinus rhythm Normal ECG When compared with ECG of 21-MAR-2024 09:25, Sinus rhythm has replaced Atrial flutter Vent. rate has decreased BY 52 BPM DD/ 1245 Vent. Rate: 142 BPM Atrial Rate: 300 BPM P-R Int: 000 ms QRS Dur: 072 ms QT Int: 306 ms P-R-T Axes: 000 022 140 degrees QTc Int: 470 ms Atrial flutter with variable A-V block Nonspecific ST and T wave abnormality Abnormal ECG When compared with ECG of 21-MAR-2024 12:45, Atrial flutter has replaced Sinus rhythm Vent. rate has increased BY 73 BPM Nonspecific T wave abnormality now evident in Inferior leads Nonspecific T wave abnormality now evident in Lateral leads DD/ 1303 Radiology Impression Discussion of test interpretation with radiology: I have reviewed the radiologist's reading. Critical Care Time Critical Care Time Critical Care Time: Yes Total Critical Care Time: 139 Attestation: I spent 139 minutes of Critical Care Time with this patient. This does not include time spent on separately reported billable procedures. Discharge Plan Discharge Clinical Impression: Atrial flutter with rapid ventricular response Patient Disposition: Admitted As Inpatient Prescriptions: No Action (DME) Cock up splint See Rx Instructions .Route .MEDSUPPLY Qty: 1 0RF Rx Instructions: Wear on right wrist at night. gabapentin 600 mg tablet 600 mg PO TID 90 Days Qty: 270 3RF (DME) cane See Rx Instructions .Route .MEDSUPPLY Qty: 1 0RF Rx Instructions: As directed (DME) cane Device See Rx Instructions .Route Qty: 1 0RF Rx Instructions: As directed Xarelto 20 mg tablet 20 mg PO DAILY Qty: 90 2RF atenolol 25 mg tablet 25 mg PO DAILY 90 Days Qty: 90 5RF Rx Instructions: Keep appt on 12/04/[address] Montoya. flecainide 100 mg tablet 100 mg PO Q12H 90 Days Qty: 180 0RF acetaminophen 650 mg tablet extended release 650 mg PO Q6-8H PRN (Reason: pain) 30 Days Qty: 120 5RF budesonide 0.5 mg/2 mL suspension for nebulization 0.5 mg inhalation DAILY 30 Days Qty: 60 11RF atorvastatin 40 mg tablet 40 mg PO DAILY 90 Days Qty: 90 3RF losartan 100 mg tablet 100 mg PO DAILY 90 Days Qty: 90 1RF sertraline 25 mg tablet 25 mg PO DAILY 90 Days Qty: 90 1RF omeprazole 20 mg capsule,delayed release(DR/EC) 20 mg PO DAILY 90 Days Qty: 90 1RF Orencia ClickJect 125 mg/mL auto-injector 125 mg subcut QWEEK Qty: 4 2RF albuterol sulfate 2.5 mg /3 mL (0.083 %) solution for nebulization 2.5 mg inhalation BID 30 Days Qty: 180 11RF Prolia 60 mg/mL syringe subcut prednisone 5 mg tablet See Rx Instructions PO DAILY Qty: 45 0RF Rx Instructions: 2 tablets per day x 14 days then 1 tablet per day x 14 days leflunomide 10 mg tablet 10 mg PO DAILY Qty: 30 2RF Print Language: Belgian
[2024-03-21 09:53] LABS: MANUAL DIFF FLAG NO
[2024-03-21 09:54] LABS: Basophils Percent Auto 0.5 % (0-2); Eosinophils Absolute Auto 0.1 X10*3/uL (0.0-0.4); Eosinophils Percent Auto 1.3 % (0-4); Hematocrit 41.2 % (37.0-47.0); Hemoglobin 13.2 g/dl (12.0-16.0); Imm Gran Abs Auto 0.02 X10*3/uL (0.00-0.03); Imm Gran Pct Auto 0.2 % (0.0-0.4); Lymphocytes Absolute Auto 1.7 X10*3/uL (1.2-4.9); Lymphocytes Percent Auto 20.6 % (20-40); Mean Corpuscular Hemoglobin 27.9 pg (27.0-33.0); Mean Corpuscular Volume 87.1 fL (80.0-98.0); Mean Platelet Volume 11.9 fL (9.4-12.3); Monocytes Percent Auto 11.5 % (2-11); Neutrophils Absolute Auto 5.5 x10*3/uL (2.0-8.3); Neutrophils Percent Auto 65.9 % (45-73); Platelet Count 187 X10*3/uL (160-400); Red Blood Count 4.73 X10*6/uL (4.20-5.50); Red Cell Distribution Width 14.9 % (11.0-16.0); White Blood Count 8.3 X10*3/uL (4.8-10.8)
[2024-03-21 10:01] LABS: INTERNATIONAL NORM RATIO 1.7 (0.9-1.1); Prothrombin Time 20.7 SEC (11.1-13.3)
--- NOTE | 2024-03-21 10:01 | PC.NURSE ---
pt to ED with chest pain and bilateral shoulder /upper arm pain since this morning when she was having breakfast. denies SOB, N/V. EKG done in triage. IV inserted, labs drawn. Aflutter on EKG and tele monitor. pt to xray
[2024-03-21 10:14] LABS: Troponin-I High Sensitivity 3.1 ng/L (<3.5-17.0)
[2024-03-21 10:20] LABS: Alanine Aminotransferase 20 U/L (0-31); Albumin Level 3.6 g/dL (3.5-5.0); Alkaline Phosphatase 51 U/L (39-117); Anion Gap 16 (12-20); Aspartate Amino Transferase 32 U/L (5-31); Bilirubin Total 0.5 mg/dL (0.0-1.0); Blood Urea Nitrogen 11 mg/dL (9-16); Calcium 8.9 mg/dL (8.4-10.2); Carbon Dioxide 17 mmol/L (22-29); Chloride 113 mmol/L (96-108); Creatinine Clr Calc Pharmacy 65.2; Estimated Glomerular Filt Rate > 60; Glucose Random 84 mg/dL (60-115); Magnesium 2.2 mg/dL (1.6-2.6); Potassium 4.6 mmol/L (3.3-5.1); Sodium 141 mmol/L (135-145); Total Protein 7.8 g/dL (6.5-8.0)
[2024-03-21 10:21] LABS: B Type Natriuretic Peptide 231 pg/mL (<100)
[2024-03-21 11:28] LABS: Troponin-I High Sensitivity 3.8 ng/L (<3.5-17.0)
--- NOTE | 2024-03-21 12:14 | P.CONCA_ITS ---
History of Present Illness History of Present Illness Date of Service: 03/21/24 Requesting physician: Nelli Welsh Chief complaint: chest pain, atrial flutter Narrative: 69-year-old female with background history of diastolic heart failure and atrial flutter presenting for chest and jaw discomfort. She was taking her medications and noticed some jaw discomfort and chest discomfort today. She came to the ER and was noticed to be in atrial flutter. She has been taking Xarelto regularly. She is on flecainide 100 mg twice a day along with atenolol 25 mg daily. Currently pain-free. High sensitivity troponin levels are 3.1 and 3.8. Clinically not in heart failure. [facility] Past Medical History Medical History (Updated 01/25/24 @ 10:58 by JOSE E Oseguera) Rheumatoid arthritis flare Abdominal discomfort Left shoulder pain Right wrist pain Right shoulder pain Obesity (BMI 30-39.9) Preoperative clearance Abnormal chest x-ray Obesity Pneumonitis Breast pain, left Diastolic dysfunction Pre-op chest exam Osteoarthritis of shoulders, bilateral Asthma-COPD overlap syndrome Personal history of nicotine dependence History of CVA (cerebrovascular accident) (~2017) ILD (interstitial lung disease) Post-menopausal Hypoxia Seropositive rheumatoid arthritis Right hemiplegia (~2017) Chronic anticoagulation GERD (gastroesophageal reflux disease) Rheumatoid arthritis Obstructive sleep apnea on CPAP Essential hypertension Paroxysmal atrial fibrillation (~2017) Pure hypercholesterolemia Family History Family History Father No problems noted. Mother No problems noted. Brother Stomach cancer Surgical History Surgical History History of appendectomy History of foot surgery History of shoulder surgery Social History Social History Household Members: None Housing: House Do you presently have visiting nurse or other home services: No Alcohol intake: current Alcohol intake frequency: does not drink Alcohol type: beer Patient Tobacco Use Status: Former Tobacco user Quit Date: 6 yrs ago Tobacco use type: Cigarette Years Smoked: 20 years Smoked in Last 30 Days: No e-Cigarette/Vaping Use: Never Used Second Hand Smoke Exposure: No Use of substances other than those prescribed or required for medical reasons: No Advance Directives: No Advance Directives Information Provided: No service: No Current occupational status: retired Cognitive needs: No Hearing needs: No Vision needs: No Meds Allergies Allergy/AdvReac Type Severity Reaction Status Date / Time No Known Allergies Allergy Verified 03/21/24 09:32 [No Known Allergies*] Home Medications ?Medication ?Instructions ?Recorded ?Confirmed ?Last Taken ?Type denosumab 60 mg/mL subcutaneous mg subcut 01/25/24 Unknown History syringe (Prolia) Physical Exam 2 Vital Signs: Vital Signs: Last Vital Signs Temp 97.8 F 03/21/24 09:31 Pulse 103 H 03/21/24 11:47 Resp 16 03/21/24 11:47 BP 128/91 H 03/21/24 11:47 Pulse Ox 97 03/21/24 11:47 O2 Del Method Room Air 03/21/24 11:47 BMI result Body Mass Index 38.0 GENERAL APPEARANCE: in no acute distress, pleasant. NECK: no carotid bruit, no jugular venous distention. SKIN: no suspicious lesions, warm and dry. HEART: no murmurs, regular rate and rhythm. Tachycardic. LUNGS: clear to auscultation bilaterally. ABDOMEN: soft, nontender. EXTREMITIES: no edema. PERIPHERAL PULSES: equal. NEUROLOGIC: No gross deficits, AAO X 3 Objective Labs and Meds 03/21/24 09:50 03/21/24 09:50 Lab results: Laboratory Results - last 24 hr 03/21/24 03/21/24 03/21/24 09:50 09:55 11:01 WBC 8.3 RBC 4.73 Hgb 13.2 Hct 41.2 MCV 87.1 MCH 27.9 MCHC 32.0 RDW 14.9 Plt Count 187 MPV 11.9 Immature Gran % (Auto) 0.2 Neut % (Auto) 65.9 Lymph % (Auto) 20.6 [place] % (Auto) 11.5 H Eos % (Auto) 1.3 Baso % (Auto) 0.5 Lymph # (Auto) 1.7 [place] # (Auto) 1.0 Eos # (Auto) 0.1 Baso # (Auto) 0.0 Abs Immat Gran (auto) 0.02 Absolute Neuts (auto) 5.5 Absolute Nucleated RBC 0.000 Nucleated RBC % (auto) 0.0 PT 20.7 H D INR 1.7 H Sodium 141 Potassium 4.6 Chloride 113 H Carbon Dioxide 17 L Anion Gap 16 BUN 11 Creatinine 0.76 Estim Creat Clear Calc 65.2 Estimated GFR > 60 Random Glucose 84 Calcium 8.9 Magnesium 2.2 Total Bilirubin 0.5 AST 32 H ALT 20 Alkaline Phosphatase 51 Troponin I High Sens 3.1 3.8 B-Natriuretic Peptide 231 H Total Protein 7.8 Albumin 3.6 Imaging Radiologist's impression: Impressions Chest X-Ray 03/21/24 10:09 IMPRESSION: Increased bronchovascular markings that could be related with pulmonary edema, atypical/viral infection, small airways disease or underlying interstitial lung abnormality. Recommend short-term follow-up. Assessment and Plan (1) Atrial flutter: Status: Resolved Plan Pleasant 69-year-old lady with background of diastolic heart failure and atrial flutter presenting for chest and jaw discomfort and atrial flutter with rapid response. She was previously planned to undergo cardioversion but broke out of atrial flutter. She has been taking Xarelto regularly and has not missed any doses over the last month. She is also on flecainide which she took this morning 100 mg and she is on 100 b.i.d. along with atenolol. I discussed with the patient and her daughter in detail using bilingual interpreter about doing cardioversion. Pros and cons were discussed and the patient and her daughter are agreeable for cardioversion. I have discussed with the ER team who will to the synchronized cardioversion. If stable after cardioversion then can be discharged home on same medications. We will pursue discussion about flutter ablation as outpatient. Thank you for allowing me to participate in the care of your patient. Please feel free to contact me if you have any questions. Procedures Date of Service Date of Service: 03/21/24
[2024-03-21] MEDS: fentaNYL citrate/PF 100 MCG/2 ML VIAL 50 MCG IVPUSH (12:35)
[2024-03-21] MEDS: Midazolam HCl/PF 2 MG/2 ML VIAL 4 MG IVPUSH (12:35)
--- NOTE | 2024-03-21 12:47 | ECG_ITS ---
Test Reason : repeat Blood Pressure : / mmHG Vent. Rate : 069 BPM Atrial Rate : 069 BPM P-R Int : 170 ms QRS Dur : 064 ms QT Int : 394 ms P-R-T Axes : 030 -07 055 degrees QTc Int : 422 ms Normal sinus rhythm Normal ECG When compared with ECG of 21-MAR-2024 09:25, Sinus rhythm has replaced Atrial flutter Vent. rate has decreased BY 52 BPM Referred By: Nelli Welsh Electronically Signed By:Brian Pacheco
--- NOTE | 2024-03-21 12:52 | ECG_ITS ---
Test Reason : repeat Blood Pressure : / mmHG Vent. Rate : 142 BPM Atrial Rate : 300 BPM P-R Int : 000 ms QRS Dur : 072 ms QT Int : 306 ms P-R-T Axes : 000 022 140 degrees QTc Int : 470 ms Atrial flutter with variable A-V block Nonspecific ST and T wave abnormality Abnormal ECG When compared with ECG of 21-MAR-2024 12:45, Atrial flutter has replaced Sinus rhythm Vent. rate has increased BY 73 BPM Nonspecific T wave abnormality now evident in Inferior leads Nonspecific T wave abnormality now evident in Lateral leads Referred By: Nelli Welsh Electronically Signed By:Brian Pacheco
--- NOTE | 2024-03-21 13:44 | P.HPHOSP_ITS ---
History of Present Illness Date of Service: 03/21/24 Attending physician on admission: Mike Storm Chief Complaint: Chest pain Pt is a 69-year-old Macedonian-speaking female with a PMH significant for?paroxysmal AFib on Xarelto, HFpEF, asthma/COPD overlap syndrome, rheumatoid arthritis, hx of CVA (2017), HTN, GERD, and mood disorder who presents to the ED for evaluation of left-sided chest and?jaw pain since this morning. Patient reports has been taking her medications as prescribed, but this morning experienced lightheadedness, dizziness, and left-sided jaw pain that radiated to the left side of her chest while sitting. Discomfort lasted for approximately 15 minutes. Patient called her daughter who brought her to the ED for further examination where she was noted to be in atrial flutter with RVR. ED consulted Dr. Pacheco in Cardiology who recommended cardioversion in the ED given patient's symptomatic presentation and anticoagulated status. Cardioversion was attempted in the ED x3; on 3rd attempt patient was converted into normal sinus rhythm, though she quickly reverted back into atrial flutter. Cardiology then recommended patient be admitted to the medical floor for additional treatment and observation. Since cardioversion patient has gone in and out of normal sinus rhythm at least 3 times. Currently denies chest pain/pressure, palpitations. No jaw discomfort. Chronic SOB around baseline. Reports had some nausea and vomiting 1-2 days ago. No fever, chills, or abdominal pain. In the ED pt was tachycardic up to 147, vitals otherwise largely stable WNL. Labs were significant for a mildly elevated BNP of 231, otherwise grossly unremarkable. Initial troponin 3.1 with repeat flat at 3.8 No leukocytosis. Stable H&H. No significant electrolyte abnormalities. Renal and hepatic function WNL. Albumin 3.6. CXR showed nonspecific increased bronchovascular markings that could be related to pulmonary edema, atypical/viral infection, small airway disease, or underlying interstitial lung abnormality. Initial EKG demonstrated atrial flutter with variable AV block but no evidence of significant ST elevations or depressions. Repeat EKG showed normal sinus rhythm and third EKG showed pt was agin in atrial flutter with variable AV block. Pt was treated with fentanyl, Versed, and flecainide. Pt will be admitted to the hospital for treatment and further evaluation of symptomatic atrial flutter with RVR. Review of Systems 2 Review of Systems: Left-sided jaw and chest pain Lightheadedness and dizziness Chronic SOB at baseline Episode nausea and 1-2 days prior Denies abdominal pain No fever, chills [facility] Medical History Rheumatoid arthritis flare Abdominal discomfort Left shoulder pain Right wrist pain Right shoulder pain Obesity (BMI 30-39.9) Preoperative clearance Abnormal chest x-ray Obesity Pneumonitis Breast pain, left Diastolic dysfunction Pre-op chest exam Osteoarthritis of shoulders, bilateral Asthma-COPD overlap syndrome Personal history of nicotine dependence History of CVA (cerebrovascular accident) (~2016) ILD (interstitial lung disease) Post-menopausal Hypoxia Seropositive rheumatoid arthritis Right hemiplegia (~2016) Chronic anticoagulation GERD (gastroesophageal reflux disease) Rheumatoid arthritis Obstructive sleep apnea on CPAP Essential hypertension Paroxysmal atrial fibrillation (~2016) Pure hypercholesterolemia Family History Father No problems noted. Mother No problems noted. Brother Stomach cancer Surgical History History of appendectomy History of foot surgery History of shoulder surgery Social History Household Members: None Housing: House Do you presently have visiting nurse or other home services: No Alcohol intake: current Alcohol intake frequency: does not drink Alcohol type: beer Patient Tobacco Use Status: Former Tobacco user Quit Date: 6 yrs ago Tobacco use type: Cigarette Years Smoked: 20 years Smoked in Last 30 Days: No e-Cigarette/Vaping Use: Never Used Second Hand Smoke Exposure: No Use of substances other than those prescribed or required for medical reasons: No Advance Directives: No Advance Directives Information Provided: No service: No Current occupational status: retired Cognitive needs: No Hearing needs: No Vision needs: No Meds Allergies Allergy/AdvReac Type Severity Reaction Status Date / Time No Known Allergies Allergy Verified 03/21/24 09:32 [No Known Allergies*] Home Medications ?Medication ?Instructions ?Recorded ?Confirmed ?Last Taken ?Type abatacept 125 mg/mL subcutaneous 125 mg subcut WE 03/21/24 03/21/24 03/19/24 History auto-injector (Orencia ClickJect) acetaminophen 650 mg 1,300 mg PO DAILY pain 03/21/24 03/21/24 Unknown History tablet,extended release albuterol sulfate 2.5 mg/3 mL 2.5 mg inhalation BID PRN 03/21/24 03/21/24 Unknown History (0.083 %) solution for nebulization Shortness Of Breath Or Wheezing atorvastatin 40 mg tablet 40 mg PO BEDTIME 03/21/24 03/21/24 03/20/24 History gabapentin 600 mg tablet 600 mg PO BID 03/21/24 03/21/24 03/21/24 History prednisone 5 mg tablet 5 mg PO DAILY 03/21/24 03/21/24 03/21/24 History Physical Exam 2 Vital Signs and Narrative: Vital Signs: Last Vital Signs Temp 97.8 F 03/21/24 13:05 Pulse 74 03/21/24 13:25 Resp 17 03/21/24 13:25 BP 117/79 03/21/24 13:25 Pulse Ox 98 03/21/24 13:25 O2 Del Method Room Air 03/21/24 13:25 O2 Flow Rate 2 03/21/24 12:57 Oxygen Flow Rate 2 03/21/24 12:35 BMI result Body Mass Index 38.0 Constitutional: Alert, in no acute distress. Mental Status: Oriented to person, place and time. Eyes: Pupils are equal, round, and reactive to light. Ear, Nose, and Throat: Oropharynx clear, mucous membranes moist. Ears and nose without deformities. Trachea midline. Respiratory: Clear to auscultation bilaterally. No wheezing, rales, or rhonchi. Cardiovascular: Irregularly irregular rhythm, tachycardic. Gastrointestinal: Abdomen soft, non-tender, non-distended. Normal bowel sounds. Neurologic: Cranial nerves II-XII are grossly intact bilaterally. No focal neurological deficits. Moves all extremities spontaneously. Skin: Warm, dry. Extremities: No edema. Psychiatric: Normal mood and affect. Results Labs 03/21/24 09:50 03/21/24 09:50 Labs: Laboratory Results - last 24 hr 03/21/24 03/21/24 03/21/24 09:50 09:55 11:01 MCV 87.1 MCH 27.9 MCHC 32.0 RDW 14.9 Plt Count 187 MPV 11.9 Immature Gran % (Auto) 0.2 Neut % (Auto) 65.9 Lymph % (Auto) 20.6 [place] % (Auto) 11.5 H Eos % (Auto) 1.3 Baso % (Auto) 0.5 Lymph # (Auto) 1.7 [place] # (Auto) 1.0 Eos # (Auto) 0.1 Baso # (Auto) 0.0 Abs Immat Gran (auto) 0.02 Absolute Neuts (auto) 5.5 Absolute Nucleated RBC 0.000 Nucleated RBC % (auto) 0.0 PT 20.7 H D INR 1.7 H Anion Gap 16 Estim Creat Clear Calc 65.2 Estimated GFR > 60 Random Glucose 84 Calcium 8.9 Magnesium 2.2 Total Bilirubin 0.5 AST 32 H ALT 20 Alkaline Phosphatase 51 Troponin I High Sens 3.1 3.8 B-Natriuretic Peptide 231 H Total Protein 7.8 Albumin 3.6 Imaging Radiologist's Impressions: Impressions Chest X-Ray 03/21/24 10:09 IMPRESSION: Increased bronchovascular markings that could be related with pulmonary edema, atypical/viral infection, small airways disease or underlying interstitial lung abnormality. Recommend short-term follow-up. Assessment and Plan (1) Atrial flutter with rapid ventricular response: Status: Acute Plan Pt is a 69-year-old Macedonian-speaking female with a PMH significant for?paroxysmal AFib on Xarelto, HFpEF, asthma/COPD overlap syndrome, rheumatoid arthritis, hx of CVA (2017), HTN, GERD, and mood disorder who presents to the ED for evaluation of left-sided chest and?jaw pain since this morning. Symptomatic rapid atrial flutter Pt with left-sided chest and jaw discomfort Unsuccessful cardioversion attempts x3 in the ED Pt has been briefly going in and out of NSR since cardioversion attempts Currently in rapid a flutter in the 140-150s Will increase flecainide to 150mg b.i.d. Will treat with metoprolol 25 mg b.i.d.; hold atenolol Continue Xarelto Cardiology consult Rojelioor on telemetry HTN BP has been a little soft, hold losartan for now Resume as indicated Rheumatoid arthritis Continue leflunomide, prednisone Asthma/COPD overlap syndrome Not in acute exacerbation Continue home inhalers HLD Continue statin Full Code Attending:?Dr. Storm DVT Prophylaxis: On Xarelto Pt will require a hospitalization of at least two nights for treatment of?asymptomatic rapid atrial flutter. Given that patient has failed cardioversion in the ED, patient will require hospitalization for close cardiac monitoring, administration of medications for rhythm and rate control, and specialist consultation with Cardiology. Quality Stroke Does the patient have a stroke diagnosis?: No VTE Prior VTE?: No VTE Risk Level:: Medical - moderate - high VTE Device Contraindication: Treatment Not Indicated VTE Drug Contraindication: N/A - Med Ordered
[2024-03-21] MEDS: Flecainide Acetate 50 MG TABLET 150 MG PO ×2 (14:13→22:25)
[2024-03-21] MEDS: Metoprolol Tartrate 25 MG TABLET PO ×2 (14:26→22:58)
--- NOTE | 2024-03-21 15:07 | PHA.MEDREC ---
Pharmacy Consult ? Medication Reconciliation Pharmacy has completed the medication reconciliation. Patient has current med list with her, spoke to patient via tone artist apprentice and confirmed med list. She says she takes Orencia on sunday, gabapentin 600 mg bid and prednisone 5 mg qd.
--- NOTE | 2024-03-21 16:06 | PC.NURSE ---
late entry - pt cardioverted in ED. Since cardioversion, pt goes in and out of NSR, approximate 4 times since the procedure. Pt will enter NSR in the 70s, and then go back to a rapid flutter in 140s. Hospitalist and ED team aware.
[2024-03-21] MEDS: 0.9 % Sodium Chloride Flush 3 ML SYRINGE IVFLUSH ×2 (18:40→22:26)
[2024-03-21] MEDS: Atorvastatin Calcium 40 MG TABLET PO (22:23)
[2024-03-21] MEDS: Gabapentin 600 MG TABLET PO (22:25)
[2024-03-22] VITALS (12 sets, daily range): BP systolic 102–142; BP diastolic 68–88; PULSE 60–140; RESP 16–20; TEMP 36.1–37.1; O2SAT 94–97
[2024-03-22] MEDS: Flecainide Acetate 50 MG TABLET 150 MG PO ×2 (08:15→22:25)
[2024-03-22] MEDS: Leflunomide 10 MG TABLET PO (08:15)
[2024-03-22] MEDS: Acetaminophen 325 MG TABLET 650 MG PO ×3 (08:16→22:25)
[2024-03-22] MEDS: Sertraline HCL 25 MG TABLET PO (08:16)
[2024-03-22] MEDS: Metoprolol Tartrate 25 MG TABLET PO ×3 (08:16→22:26)
[2024-03-22] MEDS: 0.9 % Sodium Chloride Flush 3 ML SYRINGE IVFLUSH ×2 (08:16→16:25)
[2024-03-22] MEDS: Gabapentin 600 MG TABLET PO ×2 (08:16→22:25)
[2024-03-22] MEDS: predniSONE 5 MG TABLET PO (08:16)
--- NOTE | 2024-03-22 10:54 | HO.PM.IMPN ---
Subjective Subjective Date of Service: 03/22/24 Interval History: History obtained via welding machine operator Patient offers no acute complaints she denies lightheadedness or dizziness ambulated to bathroom, without shortness of breath, no chest pain, no palpitations tele monitor showed atrial fibrillation with fluctuating ventricular rate 90-120. Review of Systems All other system reviewed and negative Physical Exam Vital Signs: Vital Signs: Last Vital Signs Temp 97.9 F 03/22/24 08:00 Pulse 135 H 03/22/24 08:16 Resp 16 03/22/24 08:10 BP 102/85 03/22/24 08:16 Pulse Ox 95 03/22/24 08:00 O2 Del Method Room Air 03/22/24 08:00 O2 Flow Rate 2 03/21/24 12:57 Oxygen Flow Rate 2 03/21/24 12:35 BMI result Body Mass Index 38.0 Const: Other: General awake alert x3, resting comfortably in no acute distress. Anicteric sclera Neck supple no JVD. CVS irregular rate rhythm, Respiratory lungs clear to auscultation, no respiratory distress, no wheeze, no rhonchi. Gastrointestinal abdomen soft, non tender, bowel sounds audible Extremities no edema. Neuro non focal Skin no rash Appropriate affect Objective Data Active Medications Acetaminophen (Acetaminophen 325 Mg Tablet) 650 mg PO Q6H PRN PRN Reason: Pain, Mild (Pain Scale 1-3) Last Admin: 03/22/24 08:16 Dose: 650 mg Documented By: KAVITA Albuterol Sulfate (Albuterol Sulfate (0.083%) 2.5 Mg/3 Ml Vial.Neb) 2.5 mg INHALE BID PRN PRN Reason: Shortness Of Breath Or Wheezing Atorvastatin Calcium (Atorvastatin Calcium 40 Mg Tablet) 40 mg PO BEDTIME [facility] Last Admin: 03/21/24 22:23 Dose: 40 mg Documented By: LAFLAMC Benzonatate (Benzonatate 100 Mg Capsule) 100 mg PO TID PRN PRN Reason: Cough Digoxin (Digoxin 0.5 Mg/2 Ml Ampul) 0.25 mg IVPUSH Q6H [facility] Stop: 03/22/24 22:01 Docusate Sodium (Docusate Sodium 100 Mg Capsule) 100 mg PO DAILY PRN PRN Reason: Constipation Flecainide Acetate (Flecainide Acetate 50 Mg Tablet) 150 mg PO BID [facility] Last Admin: 03/22/24 08:15 Dose: 150 mg Documented By: KAVITA Gabapentin (Gabapentin 600 Mg Tablet) 600 mg PO BID [facility] Last Admin: 03/22/24 08:16 Dose: 600 mg Documented By: KAVITA Leflunomide (Leflunomide 10 Mg Tablet) 10 mg PO DAILY [facility] Last Admin: 03/22/24 08:15 Dose: 10 mg Documented By: KAVITA Melatonin (Melatonin 3 Mg Tablet) 6 mg PO BEDTIME PRN PRN Reason: Insomnia Metoprolol Tartrate (Metoprolol Tartrate 25 Mg Tablet) 25 mg PO TID [facility]; Protocol Prednisone (Prednisone 5 Mg Tablet) 5 mg PO DAILY [facility] Last Admin: 03/22/24 08:16 Dose: 5 mg Documented By: KAVITA Rivaroxaban (Rivaroxaban 20 Mg Tablet) 20 mg PO DAILY@1700 [facility] Sertraline HCl (Sertraline Hcl 25 Mg Tablet) 25 mg PO DAILY [facility] Last Admin: 03/22/24 08:16 Dose: 25 mg Documented By: KAVITA Sodium Chloride (0.9 % Sodium Chloride Flush 3 Ml Syringe) 3 ml IVFLUSH QSHIFT [facility] Last Admin: 03/22/24 08:16 Dose: 3 ml Documented By: KAVITA Labs 03/21/24 09:50 03/21/24 09:50 Labs: Laboratory Results - last 24 hr 03/21/24 11:01 Troponin I High Sens 3.8 Assessment and Plan (1) Atrial flutter with rapid ventricular response: Status: Acute Plan 69-year-old Mohawk-speaking female with a PMH significant for?paroxysmal AFib on Xarelto, HFpEF, asthma/COPD overlap syndrome, rheumatoid arthritis, hx of CVA (2017), HTN, GERD, and mood disorder who presents to the ED for evaluation of left-sided chest and?jaw pain since this morning. Symptomatic rapid atrial flutter Admitted with left-sided chest and jaw discomfort, all symptoms resolved Unsuccessful cardioversion attempts x3 in the ED Remains at atrial fibrillation with fluctuating ventricular rate/troponin flat, BNP 231 no evidence of CHF,/will check TSH Continue flecainide 150 mg b.i.d. increased from home dose of 100 b.i.d., added metoprolol 25 mg t.i.d., home dose atenolol discontinued. Continue Xarelto Continue tele monitor Being followed by Cardiology HTN BP soft, hold losartan for now. Rheumatoid arthritis Continue leflunomide, prednisone Asthma/COPD overlap syndrome Not in acute exacerbation, Continue home inhalers HLD Continue statin Full Code DVT Prophylaxis: On Xarelto Pt will require continued inpatient hospitalization for monitoring of symptomatic rapid atrial flutter requiring medication adjustment for better heart rate control, treatment can not be provided in less acute setting.. Quality Stroke Does the patient have a stroke diagnosis?: No VTE Prior VTE?: No VTE Risk Level:: Medical - moderate - high VTE Device Contraindication: Treatment Not Indicated VTE Drug Contraindication: N/A - Med Ordered
--- NOTE | 2024-03-22 11:02 | PM.PNCARD ---
Subjective Subjective Date of Service: 03/22/24 Interval history: Seen examined at bedside with labor relations officer. Feeling good. Continues to be in and out of atrial flutter. Physical Exam Vital Signs: Last Vital Signs Temp 97.9 F 03/22/24 08:00 Pulse 135 H 03/22/24 08:16 Resp 16 03/22/24 08:10 BP 102/85 03/22/24 08:16 Pulse Ox 95 03/22/24 08:00 O2 Del Method Room Air 03/22/24 08:00 O2 Flow Rate 2 03/21/24 12:57 Oxygen Flow Rate 2 03/21/24 12:35 BMI result Body Mass Index 38.0 GENERAL APPEARANCE: in no acute distress, pleasant. NECK: no carotid bruit, no jugular venous distention. SKIN: no suspicious lesions, warm and dry. HEART: no murmurs, regular rate and rhythm. LUNGS: clear to auscultation bilaterally. ABDOMEN: soft, nontender. EXTREMITIES: no edema. PERIPHERAL PULSES: equal. NEUROLOGIC: No gross deficits, AAO X 3 Objective Labs and Meds 03/21/24 09:50 03/21/24 09:50 Lab results: Laboratory Results - last 24 hr 03/21/24 11:01 Troponin I High Sens 3.8 Progress Note: A&P Assessment and plan (1) Atrial flutter with rapid ventricular response: Status: Acute Plan Pleasant 69-year-old female who presented with atrial flutter and chest and jaw discomfort. She was taking anticoagulation regularly and we decided to cardioversion which was successful but she later went back into atrial flutter. Her flecainide dose was increased to 150 mg twice a day and she was admitted for further management. Change her from atenolol to metoprolol and we are titrating the dose of metoprolol. If she has uncontrolled heart rates with borderline blood pressure then can try digoxin load 250 mcg times 2, 6 hours apart. Thank you for allowing me to participate in the care of your patient. Please feel free to contact me if you have any questions. Time Spent With Patient Time: Total time managing care of this patient today ____ minutes. Progress Note: Quality Stroke Does the patient have a stroke diagnosis?: No Procedures Date of Service Date of Service: 03/22/24
[2024-03-22] MEDS: Rivaroxaban 20 MG TABLET PO (16:25)
[2024-03-22] MEDS: Melatonin 3 MG TABLET 6 MG PO (22:25)
[2024-03-22] MEDS: Atorvastatin Calcium 40 MG TABLET PO (22:33)
[2024-03-23 03:34] VITALS: BP 149/80; PULSE 62; RESP 20; TEMP 36.7; O2SAT 97
[2024-03-23 06:56] LABS: Anion Gap 15 (12-20); Blood Urea Nitrogen 11 mg/dL (9-16); Calcium 9.5 mg/dL (8.4-10.2); Carbon Dioxide 22 mmol/L (22-29); Chloride 110 mmol/L (96-108); Estimated Glomerular Filt Rate > 60; Glucose Random 79 mg/dL (60-115); Potassium 4.1 mmol/L (3.3-5.1); Sodium 143 mmol/L (135-145)
[2024-03-23 07:13] LABS: Thyroid Stimulating Hormone 0.59 uIU/mL (0.32-4.0)
[2024-03-23 07:40] VITALS: BP 130/83; PULSE 77; RESP 18; TEMP 36.4; O2SAT 97
[2024-03-23 08:48] LABS: Magnesium 2.3 mg/dL (1.6-2.6)
[2024-03-23] MEDS: Flecainide Acetate 50 MG TABLET 150 MG PO (09:18)
[2024-03-23] MEDS: Leflunomide 10 MG TABLET PO (09:18)
[2024-03-23] MEDS: Acetaminophen 325 MG TABLET 650 MG PO ×2 (09:18→20:14)
[2024-03-23] MEDS: Gabapentin 600 MG TABLET PO ×2 (09:18→20:14)
[2024-03-23] MEDS: predniSONE 5 MG TABLET PO (09:19)
[2024-03-23] MEDS: Metoprolol Tartrate 25 MG TABLET PO ×3 (09:19→20:14)
[2024-03-23] MEDS: 0.9 % Sodium Chloride Flush 3 ML SYRINGE IVFLUSH ×3 (09:19→20:16)
[2024-03-23] MEDS: Sertraline HCL 25 MG TABLET PO (09:19)
[2024-03-23] MEDS: Flecainide Acetate 50 MG TABLET 200 MG PO ×2 (09:30→20:14)
--- NOTE | 2024-03-23 09:33 | PM.PNCARD ---
Subjective Subjective Date of Service: 03/23/24 Interval history: Seen and examined at bedside. Feeling anxious and is in atrial flutter currently. Physical Exam Vital Signs: Last Vital Signs Temp 97.5 F 03/23/24 07:40 Pulse 77 03/23/24 07:40 Resp 18 03/23/24 07:40 BP 130/83 03/23/24 07:40 Pulse Ox 97 03/23/24 07:40 O2 Del Method Room Air 03/23/24 07:40 O2 Flow Rate 2 03/21/24 12:57 Oxygen Flow Rate 2 03/21/24 12:35 BMI result Body Mass Index 38.0 GENERAL APPEARANCE: in no acute distress, pleasant. NECK: no carotid bruit, no jugular venous distention. SKIN: no suspicious lesions, warm and dry. HEART: no murmurs, regular rate and rhythm. Tachycardic. LUNGS: clear to auscultation bilaterally. ABDOMEN: soft, nontender. EXTREMITIES: no edema. PERIPHERAL PULSES: equal. NEUROLOGIC: No gross deficits, AAO X 3 Objective Labs and Meds 03/21/24 09:50 03/23/24 05:50 Lab results: Laboratory Results - last 24 hr 03/23/24 05:50 Sodium 143 Potassium 4.1 Chloride 110 H Carbon Dioxide 22 Anion Gap 15 BUN 11 Creatinine 0.62 Estim Creat Clear Calc 80.0 Estimated GFR > 60 Random Glucose 79 Calcium 9.5 D Magnesium 2.3 TSH 0.59 Progress Note: A&P Assessment and plan (1) Atrial flutter with rapid ventricular response: Status: Acute Plan 69-year-old female with paroxysmal atrial flutter. She is symptomatic. Not in heart failure. Would titrate flecainide to 200 mg twice a day. If she continues to get breakthrough atrial flutter then we may have to change flecainide to a different agent. Given heart failure Multaq is not a choice. She may need amiodarone in that case. Can change metoprolol to Toprol-XL 75 mg daily. Thank you for allowing me to participate in the care of your patient. Please feel free to contact me if you have any questions. Time Spent With Patient Time: Total time managing care of this patient today ____ minutes. Progress Note: Quality Stroke Does the patient have a stroke diagnosis?: No Procedures Date of Service Date of Service: 03/23/24
[2024-03-23 11:39] VITALS: BP 119/68; PULSE 66; RESP 18; TEMP 36.3; O2SAT 97
[2024-03-23 15:35] VITALS: BP 114/66; PULSE 71; RESP 18; TEMP 36.4; O2SAT 92
--- NOTE | 2024-03-23 15:48 | HO.PM.IMPN ---
Subjective Subjective Date of Service: 03/23/24 Interval History: This history was taken in Persian from the patient. Still having paroxysmal A-flutter as high as 160s though no symptoms no lightheadedness, palpitations, dyspnea, or chest pain Review of Systems Review of Systems: Yes all other systems are reviewed and are negative Physical Exam Vital Signs: Vital Signs: Last Vital Signs Temp 97.6 F 03/23/24 15:35 Pulse 71 03/23/24 15:35 Resp 18 03/23/24 15:35 BP 114/66 03/23/24 15:35 Pulse Ox 92 03/23/24 15:35 O2 Del Method Room Air 03/23/24 15:35 O2 Flow Rate 2 03/21/24 12:57 Oxygen Flow Rate 2 03/21/24 12:35 BMI result Body Mass Index 38.0 Gen: in no acute distress HEENT: sclera anicteric, moist mucus membranes Neck: supple Lungs: clear to auscultation bilaterally Heart: regular rate and rhythm, no murmurs Abd: soft, non-tender, non-distended Ext: no edema Skin: warm/well-perfused Neuro: alert and oriented x3, no focal findings Psych: appropriate affect Objective Data Active Medications Acetaminophen (Acetaminophen 325 Mg Tablet) 650 mg PO Q6H PRN PRN Reason: Pain, Mild (Pain Scale 1-3) Last Admin: 03/23/24 09:18 Dose: 650 mg Documented By: KELBY Albuterol Sulfate (Albuterol Sulfate (0.083%) 2.5 Mg/3 Ml Vial.Neb) 2.5 mg INHALE BID PRN PRN Reason: Shortness Of Breath Or Wheezing Atorvastatin Calcium (Atorvastatin Calcium 40 Mg Tablet) 40 mg PO BEDTIME [facility] Last Admin: 03/22/24 22:33 Dose: 40 mg Documented By: LAFLAMC Benzonatate (Benzonatate 100 Mg Capsule) 100 mg PO TID PRN PRN Reason: Cough Docusate Sodium (Docusate Sodium 100 Mg Capsule) 100 mg PO DAILY PRN PRN Reason: Constipation Flecainide Acetate (Flecainide Acetate 50 Mg Tablet) 200 mg PO BID [facility] Last Admin: 03/23/24 09:30 Dose: 50 mg Documented By: KELBY Comments: previously given 150mg. 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 Gabapentin (Gabapentin 600 Mg Tablet) 600 mg PO BID [facility] Last Admin: 03/23/24 09:18 Dose: 600 mg Documented By: KELBY Leflunomide (Leflunomide 10 Mg Tablet) 10 mg PO DAILY [facility] Last Admin: 03/23/24 09:18 Dose: 10 mg Documented By: KELBY Melatonin (Melatonin 3 Mg Tablet) 6 mg PO BEDTIME PRN PRN Reason: Insomnia Last Admin: 03/22/24 22:25 Dose: 6 mg Documented By: BLAIRE Metoprolol Tartrate (Metoprolol Tartrate 25 Mg Tablet) 25 mg PO Q6H [facility]; Protocol Last Admin: 03/23/24 09:19 Dose: 25 mg Documented By: KELBY Prednisone (Prednisone 5 Mg Tablet) 5 mg PO DAILY [facility] Last Admin: 03/23/24 09:19 Dose: 5 mg Documented By: KELBY Rivaroxaban (Rivaroxaban 20 Mg Tablet) 20 mg PO DAILY@1700 [facility] Last Admin: 03/22/24 16:25 Dose: 20 mg Documented By: KAVITA Sertraline HCl (Sertraline Hcl 25 Mg Tablet) 25 mg PO DAILY [facility] Last Admin: 03/23/24 09:19 Dose: 25 mg Documented By: KELBY Sodium Chloride (0.9 % Sodium Chloride Flush 3 Ml Syringe) 3 ml IVFLUSH QSHIFT [facility] Last Admin: 03/23/24 09:19 Dose: 3 ml Documented By: KELBY Labs 03/21/24 09:50 03/23/24 05:50 Labs: Laboratory Results - last 24 hr 03/23/24 05:50 Anion Gap 15 Estim Creat Clear Calc 80.0 Estimated GFR > 60 Random Glucose 79 Calcium 9.5 D Magnesium 2.3 TSH 0.59 Assessment and Plan (1) Atrial flutter with rapid ventricular response: Status: Acute Plan d3 69yo F with pAF on rivaroxaban, HFpEF, asthma/COPD overlap, RA, hx CVA, HTN, GERD, mood disorder presenting with L-sided chest/jaw pain, found to have rapid atrial flutter atrial flutter/RVR - all symptoms resolved - unsuccessful cardioversion x3 in ED - flecainide increased by Cardiology to 200 mg bid; metoprolol increased from 25 mg tid to 25 mg q6h; home atenolol discontinued - continue rivaroxaban HTN - hold losartan RA - continue leflunomide + prednisone asthma/COPD overlap - continue prn albuterol HLD - statin mood disorder - sertraline VTE ppx - rivaroxaban dispo - eventual home In my clinical judgment, the patient requires continued inpatient hospitalization for the following reasons: rate control Total time managing care of this patient today: 35 minutes. Quality Stroke Does the patient have a stroke diagnosis?: No VTE Prior VTE?: No VTE Risk Level:: Medical - moderate - high VTE Device Contraindication: Treatment Not Indicated VTE Drug Contraindication: N/A - Med Ordered
[2024-03-23] MEDS: Rivaroxaban 20 MG TABLET PO (15:50)
--- NOTE | 2024-03-23 16:20 | MHC.CM.PN ---
CM MET WITH PT WITH [facility] [place] [facility] SHE LIVES ALONE AND HAS DAILY INDUSTRIAL ENGINEERING TECHNICIAN SERVICES HER DAUGHTER IS HER INDUSTRIAL ENGINEERING TECHNICIAN SHE SAYS SHE USES A ROLLATOR FOR MOBILITY AND HAS A CPAP, BUT FEELS SHE NEEDS A NEW ONE COPY OF HCP REQUESTED, SHE SAYS IT IS HER DAUGHTER PCP: [facility] DELIVERED DCP: HOME RESUME INDUSTRIAL ENGINEERING TECHNICIAN SERVICES DAUGHTER TO TRANSPORT
[2024-03-23 20:00] VITALS: BP 119/81; PULSE 120; RESP 16; TEMP 36; O2SAT 97
[2024-03-23 20:14] VITALS: BP 119/81; PULSE 81
[2024-03-23] MEDS: Atorvastatin Calcium 40 MG TABLET PO (20:14)
[2024-03-23] MEDS: Melatonin 3 MG TABLET 6 MG PO (20:15)
--- NOTE | 2024-03-23 23:18 | PC.RT ---
Pt refusing to wear CPAP for NOC support
[2024-03-24] VITALS (12 sets, daily range): BP systolic 101–161; BP diastolic 60–76; PULSE 55–162; RESP 16–20; TEMP 36–36.4; O2SAT 93–98
--- NOTE | 2024-03-24 | ECG_ITS ---
Test Reason : irregular rhythm Blood Pressure : / mmHG Vent. Rate : 061 BPM Atrial Rate : 061 BPM P-R Int : 192 ms QRS Dur : 086 ms QT Int : 452 ms P-R-T Axes : 061 -02 061 degrees QTc Int : 455 ms Normal sinus rhythm Low voltage QRS Borderline ECG When compared with ECG of 24-MAR-2024 09:05, Sinus rhythm has replaced Ectopic atrial rhythm Referred By: Noah Montoya Electronically Signed By:NOAH MONTOYA MD
[2024-03-24] MEDS: Leflunomide 10 MG TABLET PO (07:58)
[2024-03-24] MEDS: Flecainide Acetate 50 MG TABLET 200 MG PO (07:59)
[2024-03-24] MEDS: Gabapentin 600 MG TABLET PO ×2 (07:59→21:00)
[2024-03-24] MEDS: 0.9 % Sodium Chloride Flush 3 ML SYRINGE IVFLUSH ×3 (07:59→21:01)
[2024-03-24] MEDS: Sertraline HCL 25 MG TABLET PO (07:59)
[2024-03-24] MEDS: predniSONE 5 MG TABLET PO (07:59)
[2024-03-24] MEDS: Metoprolol Tartrate 25 MG TABLET PO ×3 (07:59→21:01)
[2024-03-24] MEDS: Metoprolol Tartrate 5 MG/5 ML VIAL IVPUSH ×2 (08:11→21:52)
--- NOTE | 2024-03-24 09:05 | ECG_ITS ---
Test Reason : rhythm change Blood Pressure : / mmHG Vent. Rate : 079 BPM Atrial Rate : 111 BPM P-R Int : 000 ms QRS Dur : 088 ms QT Int : 396 ms P-R-T Axes : 000 001 057 degrees QTc Int : 454 ms Sinus tachycardia or Unusual P axis, possible ectopic atrial tachycardia with 2nd degree A-V block (Mobitz I) Abnormal ECG When compared with ECG of 21-MAR-2024 13:03, Sinus rhythm / Ectopic atrial rhythm has replaced Atrial flutter Vent. rate has decreased BY 63 BPM Non-specific change in ST segment in Inferior leads ST elevation has replaced ST depression in Anterior leads Nonspecific T wave abnormality, improved in Inferior leads Nonspecific T wave abnormality no longer evident in Lateral leads Referred By: Noah Montoya Electronically Signed By:NOAH MONTOYA MD
--- NOTE | 2024-03-24 10:21 | PM.PNCARD ---
Subjective Subjective Date of Service: 03/24/24 Principal diagnosis: Paroxysmal atrial flutter with rapid ventricular response. Interval history: Patient converted to sinus rhythm then converted to what appears to be ectopic atrial tachycardia with Mobitz type 1 second-degree AV block. During this arrhythmias tried to walk the patient she was lightheaded. Denies any worsening shortness of breath. No chest pain. Feels palpitations intermittently. She was increased and flecainide to 200 mg b.i.d.. Denies any syncopal episodes. No chest pain. Review of Systems Constitutional: Reports no additional constitutional complaints Cardiovascular: Denies chest pain, Denies leg edema, Reports lightheadedness, Reports palpitations and Reports dyspnea on exertion Respiratory: Reports no additional respiratory complaints and Reports dyspnea on exertion Genitourinary: Reports no additional female genitourinary complaints Skin/Breast: Reports system reviewed and no additional complaints, except as docu Reports system reviewed and no additional complaints, except as documented Endocrine: Reports palpitations Physical Exam Vital Signs: Last Vital Signs Temp 97.2 F 03/24/24 07:21 Pulse 77 03/24/24 08:15 Resp 16 03/24/24 08:15 BP 155/73 H 03/24/24 07:59 Pulse Ox 96 03/24/24 07:21 O2 Del Method Room Air 03/24/24 07:21 O2 Flow Rate 2 03/21/24 12:57 Oxygen Flow Rate 2 03/21/24 12:35 BMI result Body Mass Index 38.0 GENERAL APPEARANCE: in no acute distress, pleasant. NECK: no carotid bruit, no jugular venous distention. SKIN: no suspicious lesions, warm and dry. HEART: no murmurs, regular rate and rhythm. Tachycardic. LUNGS: clear to auscultation bilaterally. ABDOMEN: soft, nontender. EXTREMITIES: no edema. PERIPHERAL PULSES: equal. NEUROLOGIC: No gross deficits, AAO X 3 Objective Labs and Meds 03/21/24 09:50 03/23/24 05:50 Progress Note: A&P Assessment and plan (1) Atrial flutter with rapid ventricular response: Status: Acute Assessment and Plan: Symptomatic atrial flutter with rapid ventricular response with increased dose of flecainide having weird atrial arrhythmias with atrial tachycardia with Mobitz type 1 second-degree AV block. At this point time I would suggest to discontinue flecainide therapy. She will require an alternative antiarrhythmic to flecainide therapy. 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 tomorrow. Tikosyn protocol with EKGs to monitor for QT prolongation. Discussed with her that she require at least hospitalization for 3 days. Can use metoprolol intermittently for rate control. If she remains in atrial flutter after Tikosyn loading will proceed with synchronized cardioversion. Continue full oral anticoagulation, currently on Xarelto 20 mg daily. Will follow with you. Time Spent With Patient Time: Total time managing care of this patient today ____ minutes. Progress Note: Quality Stroke Does the patient have a stroke diagnosis?: No Procedures Date of Service Date of Service: 03/24/24
--- NOTE | 2024-03-24 12:10 | HO.PM.IMPN ---
Subjective Subjective Date of Service: 03/24/24 Interval History: This history was taken in Romansh from the patient. Was in rapid atrial flutter this AM then NSR then ectopic atrial tachycardia with Mobitz type 1 block. Lightheaded with ambulation. Review of Systems Review of Systems: Yes all other systems are reviewed and are negative Physical Exam Vital Signs: Vital Signs: Last Vital Signs Temp 97.5 F 03/24/24 10:46 Pulse 60 03/24/24 10:46 Resp 20 03/24/24 10:46 BP 101/71 03/24/24 10:46 Pulse Ox 97 03/24/24 10:46 O2 Del Method Room Air 03/24/24 07:21 O2 Flow Rate 2 03/21/24 12:57 Oxygen Flow Rate 2 03/21/24 12:35 BMI result Body Mass Index 38.0 Gen: in no acute distress HEENT: sclera anicteric, moist mucus membranes Neck: supple Lungs: clear to auscultation bilaterally Heart: regular rate and rhythm, no murmurs Abd: soft, non-tender, non-distended Ext: no edema Skin: warm/well-perfused Neuro: alert and oriented x3, no focal findings Psych: appropriate affect Objective Data Active Medications Acetaminophen (Acetaminophen 325 Mg Tablet) 650 mg PO Q6H PRN PRN Reason: Pain, Mild (Pain Scale 1-3) Last Admin: 03/23/24 20:14 Dose: 650 mg Documented By: AUBREE Albuterol Sulfate (Albuterol Sulfate (0.083%) 2.5 Mg/3 Ml Vial.Neb) 2.5 mg INHALE BID PRN PRN Reason: Shortness Of Breath Or Wheezing Atorvastatin Calcium (Atorvastatin Calcium 40 Mg Tablet) 40 mg PO BEDTIME [facility] [place] Last Admin: 03/23/24 20:14 Dose: 40 mg Documented By: AUBREE Benzonatate (Benzonatate 100 Mg Capsule) 100 mg PO TID PRN PRN Reason: Cough Docusate Sodium (Docusate Sodium 100 Mg Capsule) 100 mg PO DAILY PRN PRN Reason: Constipation Gabapentin (Gabapentin 600 Mg Tablet) 600 mg PO BID [facility] [place] Last Admin: 03/24/24 07:59 Dose: 600 mg Documented By: GRACE Leflunomide (Leflunomide 10 Mg Tablet) 10 mg PO DAILY [facility] [place] Last Admin: 03/24/24 07:58 Dose: 10 mg Documented By: GRACE Melatonin (Melatonin 3 Mg Tablet) 6 mg PO BEDTIME PRN PRN Reason: Insomnia Last Admin: 03/23/24 20:15 Dose: 6 mg Documented By: AUBREE Metoprolol Tartrate (Metoprolol Tartrate 25 Mg Tablet) 25 mg PO Q6H [facility] [place]; Protocol Last Admin: 03/24/24 07:59 Dose: 25 mg Documented By: GRACE Prednisone (Prednisone 5 Mg Tablet) 5 mg PO DAILY [facility] [place] Last Admin: 03/24/24 07:59 Dose: 5 mg Documented By: GRACE Rivaroxaban (Rivaroxaban 20 Mg Tablet) 20 mg PO DAILY@1700 [facility] [place] Last Admin: 03/23/24 15:50 Dose: 20 mg Documented By: KELBY Sertraline HCl (Sertraline Hcl 25 Mg Tablet) 25 mg PO DAILY [facility] [place] Last Admin: 03/24/24 07:59 Dose: 25 mg Documented By: GRACE Sodium Chloride (0.9 % Sodium Chloride Flush 3 Ml Syringe) 3 ml IVFLUSH QSHIFT [facility] [place] Last Admin: 03/24/24 07:59 Dose: 3 ml Documented By: GRACE Labs 03/21/24 09:50 03/23/24 05:50 Assessment and Plan (1) Atrial flutter with rapid ventricular response: Status: Acute Plan d4 69yo F with pAF on rivaroxaban, HFpEF, asthma/COPD overlap, RA, hx CVA, HTN, GERD, mood disorder presenting with L-sided chest/jaw pain, found to have rapid atrial flutter atrial flutter/RVR - unsuccessful cardioversion x3 in ED - d/c flecainide, likely causing her ectopic atrial arrhythmia + block - to start dofetilide tomorrow, will require 72h load inpt - continue metoprolol - continue rivaroxaban HTN - hold losartan RA - continue leflunomide + prednisone asthma/COPD overlap - continue prn albuterol HLD - statin mood disorder - sertraline VTE ppx - rivaroxaban dispo - eventual home In my clinical judgment, the patient requires continued inpatient hospitalization for the following reasons: rate + rhythm control Total time managing care of this patient today: 35 minutes. Quality Stroke Does the patient have a stroke diagnosis?: No VTE Prior VTE?: No VTE Risk Level:: Medical - moderate - high VTE Device Contraindication: Treatment Not Indicated VTE Drug Contraindication: N/A - Med Ordered
[2024-03-24] MEDS: Rivaroxaban 20 MG TABLET PO (15:40)
--- NOTE | 2024-03-24 17:30 | ECG_ITS ---
Test Reason : CP Blood Pressure : / mmHG Vent. Rate : 111 BPM Atrial Rate : 000 BPM P-R Int : 000 ms QRS Dur : 078 ms QT Int : 296 ms P-R-T Axes : 000 030 058 degrees QTc Int : 402 ms Unusual P axis, possible ectopic atrial tachycardia with Possible AV dissociation. Low voltage QRS Abnormal ECG When compared with ECG of 24-MAR-2024 09:50, Unusual P axis, possible ectopic atrial tachycardia has replaced Sinus rhythm Vent. rate has increased BY 50 BPM Referred By: Kelli Zayas Electronically Signed By:PARIS RAIN MD
[2024-03-24] MEDS: Acetaminophen 325 MG TABLET 650 MG PO (21:00)
[2024-03-24] MEDS: Melatonin 3 MG TABLET 6 MG PO (21:00)
[2024-03-24] MEDS: Atorvastatin Calcium 40 MG TABLET PO (21:00)
--- NOTE | 2024-03-24 22:55 | PC.RT ---
still refusing CPAP
[2024-03-25] VITALS (15 sets, daily range): BP systolic 85–142; BP diastolic 53–78; PULSE 57–160; RESP 17–20; TEMP 36.2–36.7; O2SAT 94–97
--- NOTE | 2024-03-25 | ECG_ITS ---
Test Reason : tachycardia Blood Pressure : / mmHG Vent. Rate : 155 BPM Atrial Rate : 310 BPM P-R Int : 000 ms QRS Dur : 070 ms QT Int : 294 ms P-R-T Axes : 000 042 035 degrees QTc Int : 472 ms Atrial flutter with 2:1 A-V conduction Abnormal ECG When compared with ECG of 25-MAR-2024 13:12, Atrial flutter has replaced Sinus rhythm Vent. rate has increased BY 96 BPM Nonspecific T wave abnormality now evident in Inferior leads Referred By: Tila Cao Electronically Signed By:PARIS RAIN MD
--- NOTE | 2024-03-25 | ECG_ITS ---
Test Reason : qtc check Blood Pressure : / mmHG Vent. Rate : 067 BPM Atrial Rate : 067 BPM P-R Int : 184 ms QRS Dur : 064 ms QT Int : 410 ms P-R-T Axes : 009 -05 052 degrees QTc Int : 433 ms Sinus rhythm with Premature atrial complexes in a pattern of bigeminy Otherwise normal ECG When compared with ECG of 24-MAR-2024 17:30, Sinus rhythm has replaced Atrial fibrillation Vent. rate has decreased BY 44 BPM Referred By: Kelli Zayas Electronically Signed By:PARIS RAIN MD
[2024-03-25] MEDS: Metoprolol Tartrate 25 MG TABLET PO ×2 (02:20→09:42)
[2024-03-25] MEDS: predniSONE 5 MG TABLET PO (09:41)
[2024-03-25] MEDS: Gabapentin 600 MG TABLET PO ×2 (09:41→21:15)
[2024-03-25] MEDS: Leflunomide 10 MG TABLET PO (09:41)
[2024-03-25] MEDS: 0.9 % Sodium Chloride Flush 3 ML SYRINGE IVFLUSH ×3 (09:42→21:16)
[2024-03-25] MEDS: Sertraline HCL 25 MG TABLET PO (09:42)
[2024-03-25] MEDS: Metoprolol Tartrate 5 MG/5 ML VIAL IVPUSH ×3 (09:43→21:17)
[2024-03-25] MEDS: Dofetilide 125 MCG CAPSULE 250 MCG PO ×2 (10:50→21:13)
--- NOTE | 2024-03-25 10:59 | PM.PNCARD ---
Subjective Subjective Date of Service: 03/25/24 Principal diagnosis: Paroxysmal atrial flutter with rapid ventricular response. Interval history: Patient having intermittent symptoms of palpitations and with palpitation does get short of breath and lightheaded. Noted to have episodes of atrial flutter with rapid ventricular response also ectopic atrial tachycardia with possible AV dissociation and/or Mobitz type 1 second-degree AV block. Intermittent sinus rhythm with PACs. Patient was given metoprolol with conversion to sinus rhythm this morning. Blood pressure is okay. Flecainide has been discontinued. Review of Systems Constitutional: Reports no additional constitutional complaints Cardiovascular: Reports lightheadedness (With palpitations), Reports palpitations and Reports dyspnea Respiratory: Reports no additional respiratory complaints and Reports dyspnea Gastrointestinal: Reports no additional gastrointestinal complaints Genitourinary: Reports no additional female genitourinary complaints Musculoskeletal: Reports no additional musculoskeletal complaints Endocrine: Reports palpitations Physical Exam Vital Signs: Last Vital Signs Temp 97.9 F 03/25/24 07:24 Pulse 144 H 03/25/24 09:42 Resp 18 03/25/24 07:24 BP 135/70 03/25/24 09:42 Pulse Ox 96 03/25/24 07:24 O2 Del Method Room Air 03/25/24 07:24 O2 Flow Rate 2 03/21/24 12:57 Oxygen Flow Rate 2 03/21/24 12:35 BMI result Body Mass Index 38.0 GENERAL APPEARANCE: in no acute distress, pleasant. NECK: no carotid bruit, no jugular venous distention. SKIN: no suspicious lesions, warm and dry. HEART: no murmurs, regular rate and rhythm. Tachycardic. LUNGS: clear to auscultation bilaterally. ABDOMEN: soft, nontender. EXTREMITIES: no edema. PERIPHERAL PULSES: equal. NEUROLOGIC: No gross deficits, AAO X 3 Objective Labs and Meds 03/21/24 09:50 03/23/24 05:50 Progress Note: A&P Assessment and plan (1) Atrial flutter with rapid ventricular response: Status: Acute Assessment and Plan: Atrial flutter causing heart failure in the past. Continues to have intermittent episode of atrial flutter. Will switch her antiarrhythmic drug therapy to Tikosyn. Continue Tikosyn protocol. Require loading for 72 hours. If remains in atrial flutter after complete loading, will schedule for synchronized cardioversion. Start with 250 mcg p.o. b.i.d.. EKGs to be performed as per protocol and if stable QTC will increase to 500 mcg b.i.d. starting tomorrow. P.r.n. metoprolol. Continue Xarelto for oral anticoagulation. Management was discussed with her with help of a cook room supervisor. Time Spent With Patient Time: Total time managing care of this patient today ____ minutes. Progress Note: Quality Stroke Does the patient have a stroke diagnosis?: No Procedures Date of Service Date of Service: 03/25/24
--- NOTE | 2024-03-25 11:03 | PM.PNCARD ---
Subjective Subjective Date of Service: 03/26/24 Principal diagnosis: Paroxysmal atrial flutter with rapid ventricular response. Interval history: Patient had arrhythmias last night with rapid atrial flutter requiring metoprolol. This morning in sinus rhythm. Tikosyn dose was increased to 500 mcg today given borderline QTC interval. Patient this morning is feeling well said last night did not feel well. Review of Systems Constitutional: Reports no additional constitutional complaints Cardiovascular: Reports lightheadedness (With palpitations), Reports palpitations and Reports dyspnea Respiratory: Reports no additional respiratory complaints and Reports dyspnea Gastrointestinal: Reports no additional gastrointestinal complaints Genitourinary: Reports no additional female genitourinary complaints Musculoskeletal: Reports no additional musculoskeletal complaints Endocrine: Reports palpitations Physical Exam Vital Signs: Last Vital Signs Temp 97.2 F 03/25/24 10:58 Pulse 144 H 03/25/24 10:58 Resp 18 03/25/24 10:58 BP 105/74 03/25/24 10:58 Pulse Ox 97 03/25/24 10:58 O2 Del Method Room Air 03/25/24 10:58 O2 Flow Rate 2 03/21/24 12:57 Oxygen Flow Rate 2 03/21/24 12:35 BMI result Body Mass Index 38.0 Const General: cooperative, comfortable and no acute distress Nutritional Appearance: obese Orientation/consciousness: patient oriented x3 Neck Neck: Yes trachea midline, Yes supple and Yes no JVD Resp Effort & Inspection: normal respiratory effort Auscultation: clear to auscultation bilaterally Cardio Jugular venous distension: no JVD Palpation: normal PMI Rate: regular rate Rhythm: regular rhythm Heart sounds: S1 normal heart sound present, S2 normal heart sound present, no click, no gallops, no murmurs and no rubs GI Auscultation: normal bowel sounds Skin General skin exam: no rashes or lesions noted Neuro General: patient oriented x3 and no focal motor deficits Extrem General: Yes no clubbing, cyanosis or edema Objective Labs and Meds 03/21/24 09:50 03/26/24 06:20 Progress Note: A&P Assessment and plan (1) Atrial flutter with rapid ventricular response: Status: Acute Assessment and Plan: Atrial flutter with rapid ventricular response, highly symptomatic. Currently being loaded with Tikosyn therapy. Will increase and maximize it. Continue monitor EKGs. Continue intermittent in her metoprolol. Continue Xarelto therapy. Continue to monitor blood pressure closely. She has labile blood pressure. Probably related to cardiac arrhythmias. Will follow with you Time Spent With Patient Time: Total time managing care of this patient today ____ minutes. Progress Note: Quality Stroke Does the patient have a stroke diagnosis?: No Procedures Date of Service Date of Service: 03/26/24
--- NOTE | 2024-03-25 12:00 | ECG_ITS ---
Test Reason : ekg check Blood Pressure : / mmHG Vent. Rate : 061 BPM Atrial Rate : 061 BPM P-R Int : 158 ms QRS Dur : 064 ms QT Int : 448 ms P-R-T Axes : 014 016 083 degrees QTc Int : 450 ms Sinus rhythm with Premature atrial complexes Otherwise normal ECG When compared with ECG of 25-MAR-2024 08:12, No significant change was found Referred By: Kelli Zayas Electronically Signed By:PARIS RAIN MD
--- NOTE | 2024-03-25 12:41 | HO.PM.IMPN ---
Subjective Subjective Date of Service: 03/25/24 Interval History: This history was taken in Slovenian from the patient. Has palpitations at times. Telemetry unstable, going between NSR, atrial flutter/RVR, and ectopic AT with either AV disocciation or 2nd degree Mobitz type 1 block No chest pain Review of Systems Review of Systems: Yes all other systems are reviewed and are negative Physical Exam Vital Signs: Vital Signs: Last Vital Signs Temp 97.2 F 03/25/24 10:58 Pulse 144 H 03/25/24 10:58 Resp 18 03/25/24 10:58 BP 105/74 03/25/24 10:58 Pulse Ox 97 03/25/24 10:58 O2 Del Method Room Air 03/25/24 10:58 O2 Flow Rate 2 03/21/24 12:57 Oxygen Flow Rate 2 03/21/24 12:35 BMI result Body Mass Index 38.0 Gen: in no acute distress HEENT: sclera anicteric, moist mucus membranes Neck: supple Lungs: clear to auscultation bilaterally Heart: regular, rapid, no murmurs Abd: soft, non-tender, non-distended Ext: no edema Skin: warm/well-perfused Neuro: alert and oriented x3, no focal findings Psych: appropriate affect Objective Data Active Medications Acetaminophen (Acetaminophen 325 Mg Tablet) 650 mg PO Q6H PRN PRN Reason: Pain, Mild (Pain Scale 1-3) Last Admin: 03/24/24 21:00 Dose: 650 mg Documented By: AUBREE Albuterol Sulfate (Albuterol Sulfate (0.083%) 2.5 Mg/3 Ml Vial.Neb) 2.5 mg INHALE BID PRN PRN Reason: Shortness Of Breath Or Wheezing Atorvastatin Calcium (Atorvastatin Calcium 40 Mg Tablet) 40 mg PO BEDTIME [facility] Last Admin: 03/24/24 21:00 Dose: 40 mg Documented By: AUBREE Benzonatate (Benzonatate 100 Mg Capsule) 100 mg PO TID PRN PRN Reason: Cough Docusate Sodium (Docusate Sodium 100 Mg Capsule) 100 mg PO DAILY PRN PRN Reason: Constipation Dofetilide (Dofetilide 125 Mcg Capsule) 250 mcg PO Q12H [facility] Last Admin: 03/25/24 10:50 Dose: 250 mcg Documented By: GRACE Gabapentin (Gabapentin 600 Mg Tablet) 600 mg PO BID [facility] Last Admin: 03/25/24 09:41 Dose: 600 mg Documented By: GRACE Leflunomide (Leflunomide 10 Mg Tablet) 10 mg PO DAILY [facility] Last Admin: 03/25/24 09:41 Dose: 10 mg Documented By: GRACE Melatonin (Melatonin 3 Mg Tablet) 6 mg PO BEDTIME PRN PRN Reason: Insomnia Last Admin: 03/24/24 21:00 Dose: 6 mg Documented By: AUBREE Metoprolol Tartrate (Metoprolol Tartrate 25 Mg Tablet) 25 mg PO Q6H [facility]; Protocol Last Admin: 03/25/24 09:42 Dose: 25 mg Documented By: RGACE Prednisone (Prednisone 5 Mg Tablet) 5 mg PO DAILY [facility] Last Admin: 03/25/24 09:41 Dose: 5 mg Documented By: GRACE Rivaroxaban (Rivaroxaban 20 Mg Tablet) 20 mg PO DAILY@1700 [facility] Last Admin: 03/24/24 15:40 Dose: 20 mg Documented By: GRACE Sertraline HCl (Sertraline Hcl 25 Mg Tablet) 25 mg PO DAILY [facility] Last Admin: 03/25/24 09:42 Dose: 25 mg Documented By: GRACE Sodium Chloride (0.9 % Sodium Chloride Flush 3 Ml Syringe) 3 ml IVFLUSH QSHIFT [facility] Last Admin: 03/25/24 09:42 Dose: 3 ml Documented By: GRACE Labs 03/21/24 09:50 03/23/24 05:50 Assessment and Plan (1) Atrial flutter with rapid ventricular response: Status: Acute Plan d5 69yo F with pAF on rivaroxaban, HFpEF, asthma/COPD overlap, RA, hx CVA, HTN, GERD, mood disorder presenting with L-sided chest/jaw pain, found to have rapid atrial flutter atrial flutter/RVR - unsuccessful cardioversion x3 in ED - d/c'ed flecainide, likely was causing her ectopic atrial arrhythmia + block - starting 72hr dofetilide load today. Check EKG 2-3hr after each dose. If QTc >500ms will discontinue medication. If QTc acceptable, to increase dose from 250 mcg to 500 mcg bid tomorrow - continue metoprolol - continue rivaroxaban HTN - hold losartan RA - continue leflunomide + prednisone asthma/COPD overlap - continue prn albuterol HLD - statin mood disorder - sertraline VTE ppx - rivaroxaban dispo - eventual home In my clinical judgment, the patient requires continued inpatient hospitalization for the following reasons: rate + rhythm control Total time managing care of this patient today: 50 minutes. Quality Stroke Does the patient have a stroke diagnosis?: No VTE Prior VTE?: No VTE Risk Level:: Medical - moderate - high VTE Device Contraindication: Treatment Not Indicated VTE Drug Contraindication: N/A - Med Ordered
--- NOTE | 2024-03-25 13:16 | ECG_ITS ---
Test Reason : ekg check Blood Pressure : / mmHG Vent. Rate : 059 BPM Atrial Rate : 059 BPM P-R Int : 164 ms QRS Dur : 062 ms QT Int : 448 ms P-R-T Axes : 020 001 078 degrees QTc Int : 443 ms Sinus bradycardia with Premature supraventricular complexes Otherwise normal ECG When compared with ECG of 25-MAR-2024 11:57, No significant change was found Referred By: Kelli Zayas Electronically Signed By:PARIS RAIN MD
[2024-03-25] MEDS: Rivaroxaban 20 MG TABLET PO (17:35)
[2024-03-25] MEDS: Atorvastatin Calcium 40 MG TABLET PO (21:13)
[2024-03-25] MEDS: Metoprolol Succinate ER 25 MG TAB.ER.24H PO (21:13)
[2024-03-25] MEDS: Famotidine 20 MG TABLET PO (21:15)
[2024-03-25] MEDS: 0.9 % Sodium Chloride 1,000 ML 999 ML IV (21:30)
--- NOTE | 2024-03-25 22:50 | ECG_ITS ---
Test Reason : Please check EKG 2 hr after each dose of Tikosyn Blood Pressure : / mmHG Vent. Rate : 063 BPM Atrial Rate : 063 BPM P-R Int : 156 ms QRS Dur : 064 ms QT Int : 450 ms P-R-T Axes : 020 015 071 degrees QTc Int : 460 ms Poor data quality, interpretation may be adversely affected Sinus rhythm with Premature atrial complexes Otherwise normal ECG When compared with ECG of 25-MAR-2024 20:49, Sinus rhythm has replaced Atrial flutter Vent. rate has decreased BY 92 BPM Nonspecific T wave abnormality no longer evident in Inferior leads Referred By: Kelli Zayas Electronically Signed By:
--- NOTE | 2024-03-25 22:51 | ECG_ITS ---
Test Reason : Please check EKG 2 hr after each dose of Tikosyn Blood Pressure : / mmHG Vent. Rate : 061 BPM Atrial Rate : 061 BPM P-R Int : 156 ms QRS Dur : 064 ms QT Int : 452 ms P-R-T Axes : 012 014 069 degrees QTc Int : 455 ms Sinus rhythm with Premature atrial complexes Otherwise normal ECG When compared to the previous EKG of Normal sinus rhythm has replaced Atrial flutter with 2 to 1 block Referred By: Kelli Zayas Electronically Signed By:PARIS RAIN MD
[2024-03-26] VITALS (9 sets, daily range): BP systolic 94–148; BP diastolic 62–96; PULSE 56–165; RESP 18–20; TEMP 36.1–36.6; O2SAT 94–98
--- NOTE | 2024-03-26 | ECG_ITS ---
Test Reason : QTc Blood Pressure : / mmHG Vent. Rate : 063 BPM Atrial Rate : 063 BPM P-R Int : 166 ms QRS Dur : 064 ms QT Int : 484 ms P-R-T Axes : 019 008 075 degrees QTc Int : 495 ms Sinus rhythm with Premature supraventricular complexes Prolonged QT Abnormal ECG When compared to the previous EKG of No significant changes seen Referred By: Kelli Zayas Electronically Signed By:PARIS RAIN MD
[2024-03-26] MEDS: Metoprolol Succinate ER 25 MG TAB.ER.24H PO (05:35)
[2024-03-26] MEDS: Metoprolol Tartrate 5 MG/5 ML VIAL IVPUSH (05:37)
--- NOTE | 2024-03-26 06:40 | PM.EVENT ---
Event Note Date of Service: 03/26/24 Event Note: 03/25/24 - 8:10 PM - Patient had an event of atrial flutter with rapid ventricular response (HR 160s). Received metoprolol IV, PO and scheduled Tikosyn. These interventions successfully converted rhythm to NSR. Patient also received 1 L of LR as she has been having watery diarrhea. 03/26/24 - 5:15 AM - HR increased to 166 bpm. Metoprolol 5 mg IV given as well as scheduled PO metoprolol (instead of 9 am). Again, these interventions successfully converted the rhythm to NSR. Time Spent With Patient Time: Total time managing care of this patient today ____ minutes.
[2024-03-26 06:48] LABS: Anion Gap 15 (12-20); Blood Urea Nitrogen 13 mg/dL (9-16); Calcium 9.5 mg/dL (8.4-10.2); Carbon Dioxide 22 mmol/L (22-29); Chloride 110 mmol/L (96-108); Creatinine Clr Calc Pharmacy 66.1; Estimated Glomerular Filt Rate > 60; Glucose Random 82 mg/dL (60-115); Magnesium 2.1 mg/dL (1.6-2.6); Potassium 4.1 mmol/L (3.3-5.1); Sodium 143 mmol/L (135-145)
[2024-03-26] MEDS: Famotidine 20 MG TABLET PO ×2 (08:57→21:02)
[2024-03-26] MEDS: Sertraline HCL 25 MG TABLET PO (08:57)
[2024-03-26] MEDS: Leflunomide 10 MG TABLET PO (08:57)
[2024-03-26] MEDS: Dofetilide 125 MCG CAPSULE 500 MCG PO ×2 (08:57→19:28)
[2024-03-26] MEDS: Gabapentin 600 MG TABLET PO ×2 (08:57→21:02)
[2024-03-26] MEDS: predniSONE 5 MG TABLET PO (08:57)
[2024-03-26] MEDS: 0.9 % Sodium Chloride Flush 3 ML SYRINGE IVFLUSH ×3 (08:58→21:03)
[2024-03-26] MEDS: Metoprolol Succinate ER 50 MG TAB.ER.24H PO ×2 (09:10→21:06)
[2024-03-26] MEDS: Acetaminophen 325 MG TABLET 650 MG PO ×2 (09:11→17:21)
--- NOTE | 2024-03-26 11:20 | ECG_ITS ---
Test Reason : qtc check Blood Pressure : / mmHG Vent. Rate : 072 BPM Atrial Rate : 072 BPM P-R Int : 168 ms QRS Dur : 062 ms QT Int : 428 ms P-R-T Axes : 017 003 085 degrees QTc Int : 468 ms Sinus rhythm with Premature atrial complexes Possible Left atrial enlargement Borderline ECG When compared with ECG of 25-MAR-2024 22:51, No significant change was found Referred By: Kelli Zayas Electronically Signed By:PARIS RAIN MD
--- NOTE | 2024-03-26 11:24 | ECG_ITS ---
Test Reason : QTC CHECK Blood Pressure : / mmHG Vent. Rate : 057 BPM Atrial Rate : 057 BPM P-R Int : 170 ms QRS Dur : 064 ms QT Int : 512 ms P-R-T Axes : 020 012 073 degrees QTc Int : 498 ms Sinus bradycardia with Premature atrial complexes Prolonged QT Abnormal ECG When compared with ECG of 26-MAR-2024 09:24, QT has lengthened Referred By: Kelli Zayas Electronically Signed By:PARIS RAIN MD
--- NOTE | 2024-03-26 12:12 | MHC.CM.PN ---
EMR reviewed and per MD rounds, pt is not medically cleared for discharge due to management of symptomatic rapid atrial flutter, anticipating pt will likely discharge in 1 or 2 more days.
--- NOTE | 2024-03-26 12:31 | P.PNIM_ITS ---
Subjective Subjective Date of Service: 03/26/24 Interval History: had multiple runs of atrial flutter/RVR and got several doses of IV metoprolol currently in NSR and feeling well except c/o watery diarrhea This history was taken in Eritrean from the patient. Review of Systems Review of Systems: Yes all other systems are reviewed and are negative Physical Exam 2 Vital Signs: Vital Signs: Last Vital Signs Temp 96.9 F 03/26/24 10:51 Pulse 61 03/26/24 10:51 Resp 19 03/26/24 10:51 BP 105/62 03/26/24 10:51 Pulse Ox 97 03/26/24 10:51 O2 Del Method Room Air 03/26/24 10:51 O2 Flow Rate 2 03/21/24 12:57 Oxygen Flow Rate 2 03/21/24 12:35 BMI result Body Mass Index 38.0 Gen: in no acute distress HEENT: sclera anicteric, moist mucus membranes Neck: supple Lungs: clear to auscultation bilaterally Heart: regular, no murmurs Abd: soft, non-tender, non-distended Ext: no edema Skin: warm/well-perfused Neuro: alert and oriented x3, no focal findings Psych: appropriate affect Objective Data Active Medications Acetaminophen (Acetaminophen 325 Mg Tablet) 650 mg PO Q6H PRN PRN Reason: Pain, Mild (Pain Scale 1-3) Last Admin: 03/26/24 09:11 Dose: 650 mg Documented By: GRACE Albuterol Sulfate (Albuterol Sulfate (0.083%) 2.5 Mg/3 Ml Vial.Neb) 2.5 mg INHALE BID PRN PRN Reason: Shortness Of Breath Or Wheezing Atorvastatin Calcium (Atorvastatin Calcium 40 Mg Tablet) 40 mg PO BEDTIME [facility] Last Admin: 03/25/24 21:13 Dose: 40 mg Documented By: BISHNU Benzonatate (Benzonatate 100 Mg Capsule) 100 mg PO TID PRN PRN Reason: Cough Docusate Sodium (Docusate Sodium 100 Mg Capsule) 100 mg PO DAILY PRN PRN Reason: Constipation Dofetilide (Dofetilide 125 Mcg Capsule) 500 mcg PO Q12H [facility] Last Admin: 03/26/24 08:57 Dose: 500 mcg Documented By: GRACE Famotidine (Famotidine 20 Mg Tablet) 20 mg PO BID [facility] Last Admin: 03/26/24 08:57 Dose: 20 mg Documented By: GRACE Gabapentin (Gabapentin 600 Mg Tablet) 600 mg PO BID [facility] Last Admin: 03/26/24 08:57 Dose: 600 mg Documented By: GRACE Leflunomide (Leflunomide 10 Mg Tablet) 10 mg PO DAILY [facility] Last Admin: 03/26/24 08:57 Dose: 10 mg Documented By: GRACE Loperamide HCl (Loperamide Hcl 2 Mg Capsule) 2 mg PO Q4H PRN PRN Reason: Diarrhea Melatonin (Melatonin 3 Mg Tablet) 6 mg PO BEDTIME PRN PRN Reason: Insomnia Last Admin: 03/24/24 21:00 Dose: 6 mg Documented By: AUBREE Metoprolol Succinate (Metoprolol Succinate Er 50 Mg Tab.Er.24h) 50 mg PO BID [facility]; Protocol Last Admin: 03/26/24 09:10 Dose: 25 mg Documented By: GRACE Comments: Give 25 mg po as per Dr. Zayas order as pt had 25 mg po earlier this am Prednisone (Prednisone 5 Mg Tablet) 5 mg PO DAILY [facility] Last Admin: 03/26/24 08:57 Dose: 5 mg Documented By: GRACE Rivaroxaban (Rivaroxaban 20 Mg Tablet) 20 mg PO DAILY@1700 [facility] Last Admin: 03/25/24 17:35 Dose: 20 mg Documented By: GRACE Sertraline HCl (Sertraline Hcl 25 Mg Tablet) 25 mg PO DAILY [facility] Last Admin: 03/26/24 08:57 Dose: 25 mg Documented By: GRACE Sodium Chloride (0.9 % Sodium Chloride Flush 3 Ml Syringe) 3 ml IVFLUSH QSHIFT [facility] Last Admin: 03/26/24 08:58 Dose: 3 ml Documented By: GRACE Labs 03/21/24 09:50 03/26/24 06:20 Labs: Laboratory Results - last 24 hr 03/26/24 06:20 Hold Purple Top SEE NOTE Anion Gap 15 Estim Creat Clear Calc 66.1 Estimated GFR > 60 Random Glucose 82 Calcium 9.5 Magnesium 2.1 Assessment and Plan (1) Atrial flutter with rapid ventricular response: Status: Acute Plan d6 69yo F with pAF on rivaroxaban, HFpEF, asthma/COPD overlap, RA, hx CVA, HTN, GERD, mood disorder presenting with L-sided chest/jaw pain, found to have rapid atrial flutter atrial flutter/RVR - unsuccessful cardioversion x3 in ED - d/c'ed flecainide, likely was causing her ectopic atrial arrhythmia + block - started 72hr dofetilide load 03/25/24. Check EKG 2-3hr after each dose. If QTc >500ms will discontinue medication. Dose increased from 250 mcg to 500 mcg bid today. - continue metoprolol succinate - continue rivaroxaban diarrhea - GI panel, Cdiff assay, prn loperamide HTN - hold losartan RA - continue leflunomide + prednisone asthma/COPD overlap - continue prn albuterol HLD - statin mood disorder - sertraline VTE ppx - rivaroxaban dispo - eventual home In my clinical judgment, the patient requires continued inpatient hospitalization for the following reasons: rate + rhythm control Total time managing care of this patient today: 35 minutes. Quality Stroke Does the patient have a stroke diagnosis?: No VTE Prior VTE?: No VTE Risk Level:: Medical - moderate - high VTE Device Contraindication: Treatment Not Indicated VTE Drug Contraindication: N/A - Med Ordered
[2024-03-26] MEDS: Rivaroxaban 20 MG TABLET PO (17:16)
[2024-03-26] MEDS: Melatonin 3 MG TABLET 6 MG PO (21:02)
[2024-03-26] MEDS: Atorvastatin Calcium 40 MG TABLET PO (21:03)
[2024-03-27] VITALS (8 sets, daily range): BP systolic 123–138; BP diastolic 68–83; PULSE 50–76; RESP 17–20; TEMP 36–36.8; O2SAT 89–98
--- NOTE | 2024-03-27 | ECG_ITS ---
Test Reason : medication dosing Blood Pressure : / mmHG Vent. Rate : 056 BPM Atrial Rate : 056 BPM P-R Int : 170 ms QRS Dur : 064 ms QT Int : 512 ms P-R-T Axes : 018 019 072 degrees QTc Int : 494 ms Sinus bradycardia with Premature atrial complexes Prolonged QT Abnormal ECG When compared with ECG of 27-MAR-2024 10:57, No significant change was found Referred By: Kelil Zayas Electronically Signed By:PARIS RAIN MD
[2024-03-27 00:33] LABS: CDiff Gene PCR NEGATIVE (Negative)
[2024-03-27] MEDS: Acetaminophen 325 MG TABLET 650 MG PO ×2 (06:18→22:05)
[2024-03-27] MEDS: Metoprolol Succinate ER 50 MG TAB.ER.24H PO (08:25)
[2024-03-27] MEDS: Gabapentin 600 MG TABLET PO ×2 (08:25→22:05)
[2024-03-27] MEDS: Sertraline HCL 25 MG TABLET PO (08:26)
[2024-03-27] MEDS: Leflunomide 10 MG TABLET PO (08:26)
[2024-03-27] MEDS: predniSONE 5 MG TABLET PO (08:26)
[2024-03-27] MEDS: Famotidine 20 MG TABLET PO ×2 (08:26→22:05)
[2024-03-27] MEDS: Dofetilide 125 MCG CAPSULE 500 MCG PO (08:26)
[2024-03-27] MEDS: 0.9 % Sodium Chloride Flush 3 ML SYRINGE IVFLUSH ×2 (08:32→16:31)
--- NOTE | 2024-03-27 10:39 | P.PNIM_ITS ---
Subjective Subjective Date of Service: 03/27/24 Interval History: This history was taken in Urdu from the patient. Tolerating dofetilide. No runs of AF/RVR overnight. Ongoing diarrhea. Review of Systems Review of Systems: Yes all other systems are reviewed and are negative Physical Exam 2 Vital Signs: Vital Signs: Last Vital Signs Temp 96.8 F 03/27/24 07:41 Pulse 57 03/27/24 07:41 Resp 17 03/27/24 07:41 BP 123/83 03/27/24 07:41 Pulse Ox 95 03/27/24 07:41 O2 Del Method Room Air 03/27/24 07:41 O2 Flow Rate 2 03/21/24 12:57 Oxygen Flow Rate 2 03/21/24 12:35 BMI result Body Mass Index 38.0 Gen: in no acute distress HEENT: sclera anicteric, moist mucus membranes Neck: supple Lungs: clear to auscultation bilaterally Heart: slightly slow rate, regular rhythm, no murmurs Abd: soft, non-tender, non-distended Ext: no edema Skin: warm/well-perfused Neuro: alert and oriented x3, no focal findings Psych: appropriate affect Objective Data Active Medications Acetaminophen (Acetaminophen 325 Mg Tablet) 650 mg PO Q6H PRN PRN Reason: Pain, Mild (Pain Scale 1-3) Last Admin: 03/27/24 06:18 Dose: 650 mg Documented By: BLAIRE Albuterol Sulfate (Albuterol Sulfate (0.083%) 2.5 Mg/3 Ml Vial.Neb) 2.5 mg INHALE BID PRN PRN Reason: Shortness Of Breath Or Wheezing Atorvastatin Calcium (Atorvastatin Calcium 40 Mg Tablet) 40 mg PO BEDTIME [facility] Last Admin: 03/26/24 21:03 Dose: 40 mg Documented By: BLAIRE Benzonatate (Benzonatate 100 Mg Capsule) 100 mg PO TID PRN PRN Reason: Cough Docusate Sodium (Docusate Sodium 100 Mg Capsule) 100 mg PO DAILY PRN PRN Reason: Constipation Dofetilide (Dofetilide 125 Mcg Capsule) 500 mcg PO Q12H [facility] Last Admin: 03/27/24 08:26 Dose: 500 mcg Documented By: KELBY Famotidine (Famotidine 20 Mg Tablet) 20 mg PO BID [facility] Last Admin: 03/27/24 08:26 Dose: 20 mg Documented By: KELBY Gabapentin (Gabapentin 600 Mg Tablet) 600 mg PO BID [facility] Last Admin: 03/27/24 08:25 Dose: 600 mg Documented By: KELBY Leflunomide (Leflunomide 10 Mg Tablet) 10 mg PO DAILY [facility] Last Admin: 03/27/24 08:26 Dose: 10 mg Documented By: KELBY Loperamide HCl (Loperamide Hcl 2 Mg Capsule) 2 mg PO Q4H PRN PRN Reason: Diarrhea Melatonin (Melatonin 3 Mg Tablet) 6 mg PO BEDTIME PRN PRN Reason: Insomnia Last Admin: 03/26/24 21:02 Dose: 6 mg Documented By: JERAMIELAMMaria Antonia Metoprolol Succinate (Metoprolol Succinate Er 50 Mg Tab.Er.24h) 50 mg PO BID [facility]; Protocol Last Admin: 03/27/24 08:25 Dose: 50 mg Documented By: KELBY Prednisone (Prednisone 5 Mg Tablet) 5 mg PO DAILY [facility] Last Admin: 03/27/24 08:26 Dose: 5 mg Documented By: KELBY Rivaroxaban (Rivaroxaban 20 Mg Tablet) 20 mg PO DAILY@1700 [facility] Last Admin: 03/26/24 17:16 Dose: 20 mg Documented By: GRACE Sertraline HCl (Sertraline Hcl 25 Mg Tablet) 25 mg PO DAILY [facility] Last Admin: 03/27/24 08:26 Dose: 25 mg Documented By: KELBY Sodium Chloride (0.9 % Sodium Chloride Flush 3 Ml Syringe) 3 ml IVFLUSH QSHIFT [facility] Last Admin: 03/27/24 08:32 Dose: 3 ml Documented By: KELBY Labs 03/21/24 09:50 03/26/24 06:20 Labs: Laboratory Results - last 24 hr 03/26/24 21:55 C. difficile Tox B Gene NEGATIVE Assessment and Plan (1) Atrial flutter with rapid ventricular response: Status: Acute Plan d7 69yo F with pAF on rivaroxaban, HFpEF, asthma/COPD overlap, RA, hx CVA, HTN, GERD, mood disorder presenting with L-sided chest/jaw pain, found to have rapid atrial flutter atrial flutter/RVR - unsuccessful cardioversion x3 in ED - d/c'ed flecainide as it was likely was causing her ectopic atrial arrhythmia + block - started 72hr dofetilide load 03/25/24. Checking EKG 2-3hr after each dose. If QTc >500ms will discontinue medication. Dose increased from 250 mcg to 500 mcg 03/26. Last QTc overnight was 487 ms. - continue metoprolol succinate - continue rivaroxaban diarrhea - Cdiff negative, GI panel pending, continue prn loperamide HTN - hold losartan RA - continue leflunomide + prednisone asthma/COPD overlap - continue prn albuterol HLD - statin mood disorder - sertraline VTE ppx - rivaroxaban dispo - PT eval In my clinical judgment, the patient requires continued inpatient hospitalization for the following reasons: rate + rhythm control Total time managing care of this patient today: 35 minutes. Quality Stroke Does the patient have a stroke diagnosis?: No VTE Prior VTE?: No VTE Risk Level:: Medical - moderate - high VTE Device Contraindication: Treatment Not Indicated VTE Drug Contraindication: N/A - Med Ordered
[2024-03-27 11:45] LABS: Adenovirus F 40/41 Not Detected (Not Detect.); Astrovirus Not Detected (Not Detect.); Campylobacter Not Detected (Not Detect.); Cryptosporidium Not Detected (Not Detect.); Cyclospora cayetanensis Not Detected (Not Detect.); E. coli EAEC Not Detected (Not Detect.); E. coli EPEC Not Detected (Not Detect.); E. coli ETEC Not Detected (Not Detect.); E. coli STEC Not Detected (Not Detect.); Entamoeba histolytica Not Detected (Not Detect.); Giardia lamblia Not Detected (Not Detect.); Norovirus GI/GII Not Detected (Not Detect.); Plesiomonas shigelloides Not Detected (Not Detect.); Rotavirus A Not Detected (Not Detect.); Salmonella Not Detected (Not Detect.); Sapovirus Not Detected (Not Detect.); Shigella sp./EIEC Not Detected (Not Detect.); Vibrio Not Detected (Not Detect.); Vibrio Cholerae Not Detected (Not Detect.); Yersinia enterocolitica Not Detected (Not Detect.)
--- NOTE | 2024-03-27 11:49 | PM.PNCARD ---
Subjective Subjective Date of Service: 03/27/24 Principal diagnosis: Paroxysmal atrial flutter with rapid ventricular response. Interval history: Patient with suppressed atrial flutter. Feeling a lot better. Although with increase in Tikosyn QT interval has increased. Denies any lightheadedness, syncope. No ventricular arrhythmias noted. Hemodynamically stable. No breathing issues. Review of Systems Review of Systems Yes all other systems are reviewed and are negative Physical Exam Vital Signs: Last Vital Signs Temp 96.9 F 03/27/24 11:17 Pulse 53 03/27/24 11:17 Resp 20 03/27/24 11:17 BP 127/76 03/27/24 11:17 Pulse Ox 97 03/27/24 11:17 O2 Del Method Room Air 03/27/24 11:17 O2 Flow Rate 2 03/21/24 12:57 Oxygen Flow Rate 2 03/21/24 12:35 BMI result Body Mass Index 38.0 Const General: cooperative, comfortable and no acute distress Nutritional Appearance: obese Orientation/consciousness: patient oriented x3 Neck Neck: Yes trachea midline, Yes supple and Yes no JVD Resp Effort & Inspection: normal respiratory effort Auscultation: clear to auscultation bilaterally Cardio Jugular venous distension: no JVD Palpation: normal PMI Rate: regular rate Rhythm: regular rhythm Heart sounds: S1 normal heart sound present, S2 normal heart sound present, no click, no gallops, no murmurs and no rubs GI Auscultation: normal bowel sounds Skin General skin exam: no rashes or lesions noted Neuro General: patient oriented x3 and no focal motor deficits Extrem General: Yes no clubbing, cyanosis or edema Objective Labs and Meds 03/21/24 09:50 03/26/24 06:20 Lab results: Laboratory Results - last 24 hr 03/26/24 21:55 C. difficile Tox B Gene NEGATIVE Progress Note: A&P Assessment and plan (1) Atrial flutter with rapid ventricular response: Status: Acute Assessment and Plan: Atrial flutter with rapid ventricular response with left atrial enlargement with failure of flecainide therapy. Currently doing well with rhythm control approach with Tikosyn therapy. Given her underlying prior connective tissue disease and possible interstitial lung disease, not a great candidate for amiodarone therapy although may be required. May need to consider ablation therapy as outpatient. Reduce Tikosyn to 250 mcg b.i.d. given mildly prolonged QTC interval. Also consider reducing metoprolol to 25 mg b.i.d. given her sinus bradycardia. Avoidance of stimulants was discussed. Continue full oral anticoagulation, currently on Xarelto with high risk for thromboembolic complication. (2) Diastolic heart failure: Status: Acute Assessment and Plan: Diastolic heart failure has done well with rhythm control approach. Will continue pursue rhythm control approach. Continue management as above. Currently not on any diuretic regimen. Signs and symptoms of heart failure were discussed. Probable discharge tomorrow. Time Spent With Patient Time: Total time managing care of this patient today ____ minutes. Progress Note: Quality Stroke Does the patient have a stroke diagnosis?: No Procedures Date of Service Date of Service: 03/27/24
--- NOTE | 2024-03-27 12:00 | ECG_ITS ---
Test Reason : Please check EKG 2 hr after each dose of Tikosyn Blood Pressure : / mmHG Vent. Rate : 055 BPM Atrial Rate : 055 BPM P-R Int : 166 ms QRS Dur : 064 ms QT Int : 510 ms P-R-T Axes : 015 010 065 degrees QTc Int : 487 ms Sinus bradycardia Otherwise normal ECG When compared to the previous EKG of No significant changes seen Referred By: Kelli Zayas Electronically Signed By:PARIS RAIN MD
[2024-03-27] MEDS: Loperamide HCl 2 MG CAPSULE 4 MG PO (12:18)
[2024-03-27] MEDS: Rivaroxaban 20 MG TABLET PO (16:31)
[2024-03-27] MEDS: Dofetilide 125 MCG CAPSULE 250 MCG PO (22:05)
[2024-03-27] MEDS: Melatonin 3 MG TABLET 6 MG PO (22:06)
[2024-03-27] MEDS: Atorvastatin Calcium 40 MG TABLET PO (22:06)
--- NOTE | 2024-03-27 22:38 | ECG_ITS ---
Test Reason : ck qt Blood Pressure : / mmHG Vent. Rate : 055 BPM Atrial Rate : 055 BPM P-R Int : 170 ms QRS Dur : 060 ms QT Int : 524 ms P-R-T Axes : 014 013 076 degrees QTc Int : 501 ms Sinus bradycardia with Premature supraventricular complexes Otherwise normal ECG When compared with ECG of 27-MAR-2024 10:17, No significant change was found Referred By: Kelli Zayas Electronically Signed By:PARIS RAIN MD
[2024-03-28] VITALS (8 sets, daily range): BP systolic 112–183; BP diastolic 62–95; PULSE 56–169; RESP 16–22; TEMP 36.1–36.5; O2SAT 96–100
--- NOTE | 2024-03-28 | ECG_ITS ---
Test Reason : chest pain Blood Pressure : / mmHG Vent. Rate : 076 BPM Atrial Rate : 076 BPM P-R Int : 152 ms QRS Dur : 062 ms QT Int : 428 ms P-R-T Axes : 009 017 070 degrees QTc Int : 481 ms Sinus rhythm Premature atrial complexes with intermittent aberrant ventricular conduction Otherwise normal ECG Premature ventricular complexes are now Present Referred By: Kelli Zayas Electronically Signed By:PARIS RAIN MD
[2024-03-28] MEDS: 0.9 % Sodium Chloride Flush 3 ML SYRINGE IVFLUSH ×3 (07:13→15:58)
[2024-03-28] MEDS: Metoprolol Succinate ER 50 MG TAB.ER.24H PO (08:55)
[2024-03-28] MEDS: Sertraline HCL 25 MG TABLET PO (08:56)
[2024-03-28] MEDS: Famotidine 20 MG TABLET PO ×2 (08:56→21:34)
[2024-03-28] MEDS: Leflunomide 10 MG TABLET PO (08:56)
[2024-03-28] MEDS: Gabapentin 600 MG TABLET PO ×2 (08:56→21:34)
[2024-03-28] MEDS: predniSONE 5 MG TABLET PO (08:56)
[2024-03-28 09:37] LABS: Anion Gap 14 (12-20); B Type Natriuretic Peptide 179 pg/mL (<100); Blood Urea Nitrogen 10 mg/dL (9-16); Calcium 8.8 mg/dL (8.4-10.2); Carbon Dioxide 21 mmol/L (22-29); Chloride 112 mmol/L (96-108); Creatinine Clr Calc Pharmacy 78.7; Estimated Glomerular Filt Rate > 60; Glucose Random 76 mg/dL (60-115); Magnesium 2.2 mg/dL (1.6-2.6); Potassium 3.9 mmol/L (3.3-5.1); Sodium 143 mmol/L (135-145)
[2024-03-28 09:44] LABS: Troponin-I High Sensitivity 3.6 ng/L (<3.5-17.0)
[2024-03-28] MEDS: Metoprolol Tartrate 5 MG/5 ML VIAL IVPUSH (09:45)
[2024-03-28] MEDS: Dofetilide 125 MCG CAPSULE 250 MCG PO ×2 (09:45→11:56)
--- NOTE | 2024-03-28 10:38 | ECG_ITS ---
Test Reason : 2 hr med follow up Blood Pressure : / mmHG Vent. Rate : 052 BPM Atrial Rate : 052 BPM P-R Int : 162 ms QRS Dur : 062 ms QT Int : 462 ms P-R-T Axes : 018 015 075 degrees QTc Int : 429 ms Sinus bradycardia Otherwise normal ECG When compared with ECG of 28-MAR-2024 07:58, Premature ventricular complexes are no longer Present Premature atrial complexes are no longer Present QT has shortened Referred By: Kelli Zayas Electronically Signed By:PARIS RAIN MD
--- NOTE | 2024-03-28 11:23 | PM.PNCARD ---
Subjective Subjective Date of Service: 03/28/24 Principal diagnosis: Paroxysmal atrial flutter with rapid ventricular response. Interval history: Patient's Tikosyn was reduced yesterday to mildly QT prolongation. Overnight has had episodes of atrial flutter with rapid ventricular response quite symptomatic. Each lasting 10 minutes. Blood pressure is significantly elevated today. Review of Systems Constitutional: Reports no additional constitutional complaints Cardiovascular: Reports lightheadedness, Reports palpitations and Reports dyspnea Respiratory: Reports no additional respiratory complaints and Reports dyspnea Gastrointestinal: Reports no additional gastrointestinal complaints Genitourinary: Reports no additional female genitourinary complaints Endocrine: Reports palpitations Physical Exam Vital Signs: Last Vital Signs Temp 97.1 F 03/28/24 08:00 Pulse 76 03/28/24 08:00 Resp 22 H 03/28/24 08:00 BP 183/92 H 03/28/24 08:00 Pulse Ox 97 03/28/24 08:00 O2 Del Method Room Air 03/28/24 08:00 O2 Flow Rate 2 03/21/24 12:57 Oxygen Flow Rate 2 03/21/24 12:35 BMI result Body Mass Index 38.0 Const General: cooperative, comfortable and no acute distress Nutritional Appearance: obese Orientation/consciousness: patient oriented x3 Neck Neck: Yes trachea midline, Yes supple and Yes no JVD Resp Effort & Inspection: normal respiratory effort Auscultation: clear to auscultation bilaterally Cardio Jugular venous distension: no JVD Palpation: normal PMI Rate: regular rate Rhythm: regular rhythm Heart sounds: S1 normal heart sound present, S2 normal heart sound present, no click, no gallops, no murmurs and no rubs GI Auscultation: normal bowel sounds Skin General skin exam: no rashes or lesions noted Neuro General: patient oriented x3 and no focal motor deficits Extrem General: Yes no clubbing, cyanosis or edema Objective Labs and Meds 03/21/24 09:50 03/28/24 08:29 Lab results: Laboratory Results - last 24 hr 03/26/24 03/28/24 21:55 08:29 Sodium 143 Potassium 3.9 Chloride 112 H Carbon Dioxide 21 L Anion Gap 14 BUN 10 Creatinine 0.63 Estim Creat Clear Calc 78.7 Estimated GFR > 60 Random Glucose 76 Calcium 8.8 D Magnesium 2.2 Troponin I High Sens 3.6 B-Natriuretic Peptide 179 H Stl C. cayetanensis PCR Not Detected Stool Rotavirus A PCR Not Detected Stl Adenov F 40/41 PCR Not Detected Stool Astrovirus (PCR) Not Detected Stool Campylobacter PCR Not Detected Stool Cryptosporidium PCR Not Detected Stl Sh Tox Pr E STEC PCR Not Detected Stool E coli O157 PCR Not applicable Stl Enterotoxigenic E PCR Not Detected Stool EPEC (PCR) Not Detected Stool EAEC (PCR) Not Detected Stl E. histolytica PCR Not Detected Stool Giardia Lamblia PCR Not Detected Stl P. shigelloides PCR Not Detected Stool Salmonella PCR Not Detected Stool Sapovirus (PCR) Not Detected Stl Shigella/EIEC PCR Not Detected St Y.enterocolitica PCR Not Detected Stool Vibrio (PCR) Not Detected Stl Vibrio cholerae PCR Not Detected Stl Norovirus GI/GII PCR Not Detected Progress Note: A&P Assessment and plan (1) Atrial flutter with rapid ventricular response: Status: Acute Assessment and Plan: Atrial flutter with rapid ventricular response which is highly symptomatic. Patient did well with no recurrent arrhythmias on higher dose of Tikosyn. Will try to increase Tikosyn again to 500 mcg b.i.d. and follow-up QTC interval closely. Continue metoprolol 50 mg b.i.d.. Blood pressure is elevated today and consider adding spironolactone 25 mg to her regimen. Will continue monitor her closely. Will continue to follow with you. Time Spent With Patient Time: Total time managing care of this patient today ____ minutes. Progress Note: Quality Stroke Does the patient have a stroke diagnosis?: No Procedures Date of Service Date of Service: 03/28/24
--- NOTE | 2024-03-28 14:00 | ECG_ITS ---
Test Reason : 2 hr p 250 mcg Tikosyn Blood Pressure : / mmHG Vent. Rate : 063 BPM Atrial Rate : 063 BPM P-R Int : 162 ms QRS Dur : 060 ms QT Int : 452 ms P-R-T Axes : 015 016 070 degrees QTc Int : 462 ms Normal sinus rhythm Normal ECG When compared with ECG of 28-MAR-2024 11:47, No significant change was found Referred By: Kelli Zayas Electronically Signed By:PARIS RAIN MD
--- NOTE | 2024-03-28 14:33 | P.PNIM_ITS ---
Subjective Subjective Date of Service: 03/28/24 Interval History: several episodes of rapid atrial flutter this AM with symptoms; now sinus This history was taken in [place] from the patient. Review of Systems Review of Systems: Yes all other systems are reviewed and are negative Physical Exam 2 Vital Signs: Vital Signs: Last Vital Signs Temp 97.0 F 03/28/24 12:00 Pulse 59 03/28/24 12:00 Resp 20 03/28/24 12:00 BP 112/62 03/28/24 12:00 Pulse Ox 97 03/28/24 12:00 O2 Del Method Room Air 03/28/24 12:00 O2 Flow Rate 2 03/21/24 12:57 Oxygen Flow Rate 2 03/21/24 12:35 BMI result Body Mass Index 38.0 Gen: in no acute distress HEENT: sclera anicteric, moist mucus membranes Neck: supple Lungs: clear to auscultation bilaterally Heart: slightly slow rate, regular rhythm, no murmurs Abd: soft, non-tender, non-distended Ext: no edema Skin: warm/well-perfused Neuro: alert and oriented x3, no focal findings Psych: appropriate affect Objective Data Active Medications Acetaminophen (Acetaminophen 325 Mg Tablet) 650 mg PO Q6H PRN PRN Reason: Pain, Mild (Pain Scale 1-3) Last Admin: 03/27/24 22:05 Dose: 650 mg Documented By: ARTEM Albuterol Sulfate (Albuterol Sulfate (0.083%) 2.5 Mg/3 Ml Vial.Neb) 2.5 mg INHALE BID PRN PRN Reason: Shortness Of Breath Or Wheezing Atorvastatin Calcium (Atorvastatin Calcium 40 Mg Tablet) 40 mg PO BEDTIME COUNT INCLUDES THE [facility] Last Admin: 03/27/24 22:06 Dose: 40 mg Documented By: ARTEM Benzonatate (Benzonatate 100 Mg Capsule) 100 mg PO TID PRN PRN Reason: Cough Docusate Sodium (Docusate Sodium 100 Mg Capsule) 100 mg PO DAILY PRN PRN Reason: Constipation Dofetilide (Dofetilide 125 Mcg Capsule) 500 mcg PO Q12H COUNT INCLUDES THE [facility] Famotidine (Famotidine 20 Mg Tablet) 20 mg PO BID COUNT INCLUDES THE [facility] Last Admin: 03/28/24 08:56 Dose: 20 mg Documented By: KELBY Gabapentin (Gabapentin 600 Mg Tablet) 600 mg PO BID COUNT INCLUDES THE [facility] Last Admin: 03/28/24 08:56 Dose: 600 mg Documented By: KELBY Leflunomide (Leflunomide 10 Mg Tablet) 10 mg PO DAILY COUNT INCLUDES THE [facility] Last Admin: 03/28/24 08:56 Dose: 10 mg Documented By: KELBY Loperamide HCl (Loperamide Hcl 2 Mg Capsule) 4 mg PO Q4H PRN PRN Reason: Diarrhea Last Admin: 03/27/24 12:18 Dose: 4 mg Documented By: KELBY Melatonin (Melatonin 3 Mg Tablet) 6 mg PO BEDTIME PRN PRN Reason: Insomnia Last Admin: 03/27/24 22:06 Dose: 6 mg Documented By: ARTEM Metoprolol Succinate (Metoprolol Succinate Er 50 Mg Tab.Er.24h) 50 mg PO BID COUNT INCLUDES THE [facility]; Protocol Last Admin: 03/28/24 08:55 Dose: 25 mg Documented By: KELBY Comments: previously given 25mg Prednisone (Prednisone 5 Mg Tablet) 5 mg PO DAILY COUNT INCLUDES THE [facility] Last Admin: 03/28/24 08:56 Dose: 5 mg Documented By: KELBY Rivaroxaban (Rivaroxaban 20 Mg Tablet) 20 mg PO DAILY@1700 COUNT INCLUDES THE [facility] Last Admin: 03/27/24 16:31 Dose: 20 mg Documented By: KELBY Sertraline HCl (Sertraline Hcl 25 Mg Tablet) 25 mg PO DAILY COUNT INCLUDES THE [facility] Last Admin: 03/28/24 08:56 Dose: 25 mg Documented By: KELBY Sodium Chloride (0.9 % Sodium Chloride Flush 3 Ml Syringe) 3 ml IVFLUSH QSHIFT COUNT INCLUDES THE [facility] Last Admin: 03/28/24 08:56 Dose: 3 ml Documented By: KELBY Labs 03/21/24 09:50 03/28/24 08:29 Labs: Laboratory Results - last 24 hr 03/28/24 08:29 Anion Gap 14 Estim Creat Clear Calc 78.7 Estimated GFR > 60 Random Glucose 76 Calcium 8.8 D Magnesium 2.2 Troponin I High Sens 3.6 B-Natriuretic Peptide 179 H Assessment and Plan (1) Atrial flutter with rapid ventricular response: Status: Acute Plan d8 69yo F with pAF on rivaroxaban, HFpEF, asthma/COPD overlap, RA, hx CVA, HTN, GERD, mood disorder presenting with L-sided chest/jaw pain, found to have rapid atrial flutter atrial flutter/RVR - unsuccessful cardioversion x3 in ED - d/c'ed flecainide as it was likely was causing her ectopic atrial arrhythmia + block - started 72hr dofetilide load 03/25/24. Checking EKG 2-3hr after each dose. Dose increased from 250 mcg to 500 mcg 03/26. On EKG am of 03/27, QTc was 501 ms, so dose was decreased to 250 mcg. QTc after last night's dose was borderline at 501 ms. Control of her AF was much more effective at the higher dose of 500 mcg, so she was increased back to 500 mcg this AM. Fortunately, QTc was 462 ms - continue metoprolol succinate 50 mg bid - continue rivaroxaban diarrhea - Cdiff negative, GI panel negative continue prn loperamide HTN - hold losartan, start spironolactone RA - continue leflunomide + prednisone asthma/COPD overlap - continue prn albuterol HLD - statin mood disorder - sertraline VTE ppx - rivaroxaban dispo - eventual home In my clinical judgment, the patient requires continued inpatient hospitalization for the following reasons: rate + rhythm control Total time managing care of this patient today: 50 minutes. Quality Stroke Does the patient have a stroke diagnosis?: No VTE Prior VTE?: No VTE Risk Level:: Medical - moderate - high VTE Device Contraindication: Treatment Not Indicated VTE Drug Contraindication: N/A - Med Ordered
[2024-03-28] MEDS: Spironolactone 25 MG TABLET PO (15:57)
[2024-03-28] MEDS: Rivaroxaban 20 MG TABLET PO (15:58)
[2024-03-28] MEDS: Atorvastatin Calcium 40 MG TABLET PO (21:34)
[2024-03-28] MEDS: Melatonin 3 MG TABLET 6 MG PO (21:36)
[2024-03-28] MEDS: Dofetilide 125 MCG CAPSULE 500 MCG PO (21:40)
--- NOTE | 2024-03-28 23:00 | ECG_ITS ---
Test Reason : Check QTc 2-3 hr after each Tikosyn dose Blood Pressure : / mmHG Vent. Rate : 000 BPM Atrial Rate : 000 BPM P-R Int : 000 ms QRS Dur : 000 ms QT Int : 000 ms P-R-T Axes : 000 000 000 degrees QTc Int : 000 ms No QRS complexes found, no ECG analysis possible When compared with ECG of 29-MAR-2024 00:22, Current undetermined rhythm precludes rhythm comparison, needs review Referred By: Kelli Zayas Electronically Signed By:
[2024-03-29] VITALS: BP 164/80; PULSE 58; RESP 16; TEMP 36.1; O2SAT 92
[2024-03-29 04:00] VITALS: BP 137/78; PULSE 58; RESP 17; TEMP 36.7; O2SAT 97
[2024-03-29 07:54] VITALS: BP 145/67; PULSE 56; RESP 18; TEMP 36.3
[2024-03-29] MEDS: 0.9 % Sodium Chloride Flush 3 ML SYRINGE IVFLUSH (08:21)
[2024-03-29] MEDS: Dofetilide 125 MCG CAPSULE 500 MCG PO (08:21)
[2024-03-29] MEDS: Gabapentin 600 MG TABLET PO (08:22)
[2024-03-29] MEDS: Leflunomide 10 MG TABLET PO (08:22)
[2024-03-29] MEDS: Spironolactone 25 MG TABLET PO (08:22)
[2024-03-29] MEDS: Sertraline HCL 25 MG TABLET PO (08:22)
[2024-03-29] MEDS: Famotidine 20 MG TABLET PO (08:22)
[2024-03-29] MEDS: predniSONE 5 MG TABLET PO (08:22)
[2024-03-29] MEDS: Acetaminophen 325 MG TABLET 650 MG PO (08:30)
--- NOTE | 2024-03-29 11:00 | ECG_ITS ---
Test Reason : Check QTc 2-3 hr after each Tikosyn dose Blood Pressure : / mmHG Vent. Rate : 056 BPM Atrial Rate : 056 BPM P-R Int : 160 ms QRS Dur : 062 ms QT Int : 508 ms P-R-T Axes : 012 016 066 degrees QTc Int : 490 ms Sinus bradycardia Prolonged QT Abnormal ECG When compared to the previous EKG of QT has lengthened Referred By: Kelli Zayas Electronically Signed By:PARIS RAIN MD
[2024-03-29 11:49] VITALS: BP 136/65; RESP 18; TEMP 36.4; O2SAT 97
--- NOTE | 2024-03-29 12:57 | P.DS_ITS ---
DS: Providers Provider Date of Service: 03/29/24 Date of admission: 03/21/24 14:56 Primary care physician: Dafne Pollard MD Consults: 03/21/24 11:52 Consult to Cardiology Stat Consulting Provider: [facility] Cardi[facility] Services Reason for consultation: atrial flutter RVR / on flecanide, elevated BNP Has provider been notified: Yes DS: Diagnosis Discharge Diagnosis (1) Atrial flutter with rapid ventricular response: Status: Acute DS: Summary Hospital Course Hospital Course: History of presenting illness: Date of Service: 03/21/24 Attending physician on admission: Mike Storm Chief Complaint: Chest pain Pt is a 69-year-old [place]ican-speaking female with a PMH significant for?paroxysmal AFib on Xarelto, HFpEF, asthma/COPD overlap syndrome, rheumatoid arthritis, hx of CVA (2017), HTN, GERD, and mood disorder who presents to the ED for evaluation of left-sided chest and?jaw pain since this morning. Patient reports has been taking her medications as prescribed, but this morning experienced lightheadedness, dizziness, and left-sided jaw pain that radiated to the left side of her chest while sitting. Discomfort lasted for approximately 15 minutes. Patient called her daughter who brought her to the ED for further examination where she was noted to be in atrial flutter with RVR. ED consulted Dr. Pacheco in Cardiology who recommended cardioversion in the ED given patie nt's symptomatic presentation and anticoagulated status. Cardioversion was attempted in the ED x3; on 3rd attempt patient was converted into normal sinus rhythm, though she quickly reverted back into atrial flutter. Cardiology then recommended patient be admitted to the medical floor for additional treatment and observation. Since cardioversion patient has gone in and out of normal sinus rhythm at least 3 times. Currently denies chest pain/pressure, palpitations. No jaw discomfort. Chronic SOB around baseline. Reports had some nausea and vomiting 1-2 days ago. No fever, chills, or abdominal pain. In the ED pt was tachycardic up to 147, vitals otherwise largely stable WNL. Labs were significant for a mildly elevated BNP of 231, otherwise grossly unremarkable. Initial troponin 3.1 with repeat flat at 3.8 No leukocytosis. Stable H&H. No significant electrolyte abnormalities. Renal and hepatic function WNL. Albumin 3.6. CXR showed nonspecific increased bronchovascular markings that could be related to pulmonary edema, atypical/viral infection, small airway disease, or underlying interstitial lung abnormality. Initial EKG demonstrated atrial flutter with variable AV block but no evidence of significant ST elevations or depressions. Repeat EKG showed normal sinus rhythm and third EKG showed pt was agin in atrial flutter with variable AV block. Pt was treated with fentanyl, Versed, and flecainide. Pt will be admitted to the hospital for treatment and further evaluation of symptomatic atrial flutter with RVR. Hospital course: 69yo F with paroxysmal atrial fibrillation on rivaroxaban, HFpEF, asthma/COPD overlap, RA, hx CVA, HTN, GERD, mood disorder, presenting with L-sided chest/jaw pain, found to have rapid atrial flutter, underwent unsuccessful cardioversion x3 in the emergency room ,flecainide was discontinued as it was likely was causing her ectopic atrial arrhythmia + block, patient started on 72hr dofetilide load 03/25/24, EKG was followed closely, 2-3hr after each dose, dose dofetilide was adjusted according to QTC, patient is currently on 500 mcg b.i.d. with normal sinus rhythm , QTC slightly elevated 520 milliseconds, recommended close outpatient follow-up with materials clerk Dr. Cano patient will have outpatient Holter monitor and will be referred to EP study, diastolic heart failure remained stable, patient is being discharged home on dofetilide ,metoprolol, and Xarelto During hospitalization noted to have diarrhea, C diff and GI panel was negative, patient treated with as needed loperamide, diarrhea resolved. HTN stable blood pressure continue metoprolol and spironolactone In regard to history of rheumatoid arthritis recommend to continue leflunomide + prednisone. asthma/COPD overlap no acute exacerbation noted, continue prn albuterol. Time Attestation Discharge Coordination Time (in mins): 38 Quality: Safe Use of Opioids Does Pt have an Active Cancer Diagnosis on the Problem List?: No Quality: Stroke Does the patient have a stroke diagnosis?: No Physical Exam Vital Signs: Vital Signs: Last Vital Signs Temp 97.6 F 03/29/24 11:49 Pulse 56 03/29/24 07:54 Resp 18 03/29/24 11:49 BP 136/65 03/29/24 11:49 Pulse Ox 97 03/29/24 11:49 O2 Del Method Room Air 03/29/24 11:49 O2 Flow Rate 2 03/21/24 12:57 Oxygen Flow Rate 2 03/21/24 12:35 BMI result Body Mass Index 38.0 Const: Other: Gen: Awake alert x3, in no acute distress HEENT: sclera anicteric, moist mucus membranes Neck: supple Lungs: clear to auscultation bilaterally Heart: regular rhythm, no murmurs Abd: soft, non-tender, non-distended, bowel sounds audible Ext: no edema Skin: warm/well-perfused Neuro: alert and oriented x3, no focal findings. Psych: appropriate affect DS: Data Data Completed and Pending Completed studies during hospitalization [Text1]: Procedures Assistance with Respiratory Ventilation, Less than 24 Consecutive Hours, Continuous Positive Airway Pressure (04/15/21) Discharge Plan Discharge Anticipated Discharge Date/Time: 03/29/24 12:54 Patient Disposition: Home, Self-Care Discharge Diagnosis: Symptomatic atrial flutter Referrals: Dafne Betancourt MD [Primary Care Provider] - 1 Week Discharge Medications: New metoprolol succinate 50 mg Tablet Extended Release 24 Hr 50 mg PO BID Qty: 60 0RF Protocol: Hold for SBP/HR < HOLD for SBP < : 90 HOLD for HR < : 60 dofetilide 500 mcg capsule 500 mcg PO Q12H Qty: 60 0RF Continued (DME) Cock up splint See Rx Instructions .Route .MEDSUPPLY Qty: 1 0RF Rx Instructions: Wear on right wrist at night. (DME) cane See Rx Instructions .Route .MEDSUPPLY Qty: 1 0RF Rx Instructions: As directed Xarelto 20 mg tablet 20 mg PO DAILY Qty: 90 2RF sertraline 25 mg tablet 25 mg PO DAILY 90 Days Qty: 90 1RF spironolactone 25 mg tablet 25 mg PO DAILY 90 Days Qty: 90 0RF Protocol: Hold for SBP< HOLD for SBP < : 90 atorvastatin 40 mg tablet 40 mg PO BEDTIME gabapentin 600 mg tablet 600 mg PO BID albuterol sulfate 2.5 mg /3 mL (0.083 %) solution for nebulization 2.5 mg inhalation BID PRN (Reason: Shortness Of Breath Or Wheezing) acetaminophen 650 mg tablet extended release 1,300 mg PO DAILY O[employer]cia Click[employer]ect 125 mg/mL auto-injector 125 mg subcut WE prednisone 5 mg tablet 5 mg PO DAILY leflunomide 10 mg tablet 10 mg PO DAILY Qty: 30 2RF Discontinued atenolol 25 mg tablet 25 mg PO DAILY 90 Days Qty: 90 5RF flecainide 100 mg tablet 100 mg PO Q12H 90 Days Qty: 180 0RF losartan 100 mg tablet 100 mg PO DAILY 90 Days Qty: 90 1RF No Action (DME) cane Device See Rx Instructions .Route Qty: 1 0RF Rx Instructions: As directed Discharge Orders: Discharge Order (Routine); Ordered 03/29/24 Ordered By: Mike Storm Diet: Low fat, low cholesterol Activity on Discharge: As tolerated Stand Alone Forms: Patient Portal Discharge page Print Language: Moz[place]ican Care Plan Goals: Take dofetilide 500 mcg 1 tablet twice daily Take metoprolol 1 tablet twice daily Discontinue flecainide, losartan and atenolol Return to check with recurrent episodes of chest pain, palpitations/or shortness breath. Health Concerns: Continue all other medications as above Plan of Treatment: Outpatient follow-up with materials clerk Dr. Cano call for appointment Assessment: As above Discharge Date/Time: 03/29/24 13:30
--- NOTE | 2024-03-29 13:49 | P.PNCA_ITS ---
Subjective Subjective Date of Service: 03/29/24 Principal diagnosis: Paroxysmal atrial flutter with rapid ventricular response. Interval history: Patient feeling better. Overnight has remained in sinus rhythm. No recurrent episode of atrial flutter. Feels well. QTC is mildly prolonged at 05:20 milliseconds Review of Systems Review of Systems Yes all other systems are reviewed and are negative Physical Exam Vital Signs: Last Vital Signs Temp 97.6 F 03/29/24 11:49 Pulse 56 03/29/24 07:54 Resp 18 03/29/24 11:49 BP 136/65 03/29/24 11:49 Pulse Ox 97 03/29/24 11:49 O2 Del Method Room Air 03/29/24 11:49 O2 Flow Rate 2 03/21/24 12:57 Oxygen Flow Rate 2 03/21/24 12:35 BMI result Body Mass Index 38.0 Const Other: Gen: Awake alert x3, in no acute distress HEENT: sclera anicteric, moist mucus membranes Neck: supple Lungs: clear to auscultation bilaterally Heart: regular rhythm, no murmurs Abd: soft, non-tender, non-distended, bowel sounds audible Ext: no edema Skin: warm/well-perfused Neuro: alert and oriented x3, no focal findings. Psych: appropriate affect Objective Labs and Meds 03/21/24 09:50 03/28/24 08:29 Imaging Radiologist's impression: Impressions Chest X-Ray 03/28/24 09:15 IMPRESSION: * Clear lungs. Progress Note: A&P Assessment and plan (1) Atrial flutter with rapid ventricular response: Status: Acute Assessment and Plan: Highly symptomatic atrial flutter finally suppressed on Tikosyn at 500 mcg b.i.d.. Continue the same. Currently on low-dose of metoprolol. Will follow- up with outpatient Holter monitor. Continue full oral anticoagulation with Xarelto. Difficult control. Will refer to EPS as outpatient. Follow up in the clinic (2) Diastolic heart failure: Status: Acute Assessment and Plan: Diastolic heart failure setting of atrial flutter. Clinically currently without any heart failure. Blood pressure is well optimized. Continue rhythm control approach. Started on spironolactone therapy as well. Continue the same. Advised to monitor blood pressure at home maintain a log. Low-salt diet was discussed. Will follow up in the clinic in 4 weeks time. Thank you for allowing me to partake in the care Time Spent With Patient Time: Total time managing care of this patient today ____ minutes. Progress Note: Quality Stroke Does the patient have a stroke diagnosis?: No Procedures Date of Service Date of Service: 03/29/24
--- NOTE | 2024-03-29 14:44 | MHC.CM.PN ---
Pt is medically cleared for discharge home self-care, pts daughter to transport her home.
--- NOTE | 2024-03-29 23:00 | ECG_ITS ---
Test Reason : Check QTc 2-3 hr after each Tikosyn dose Blood Pressure : / mmHG Vent. Rate : 057 BPM Atrial Rate : 057 BPM P-R Int : 174 ms QRS Dur : 062 ms QT Int : 510 ms P-R-T Axes : 019 014 063 degrees QTc Int : 496 ms Sinus bradycardia Prolonged QT Abnormal ECG When compared with ECG of 29-MAR-2024 10:56, Previous ECG has undetermined rhythm, needs review Referred By: Kelli Zayas Electronically Signed By:PARIS RAIN MD
== END 2024-03-29 13:30 | disposition home or self-care (01) | DRG 309 ==
LOC: HO.ED 13:30 → HO.EDOVER 15:17 → HO.IMC 19:33
PROVIDERS: Family Medicine; Physician Assistant Medical; Student in an Organized Health Care Education/Training Program; Admitting Provider Student in an Organized Health Care Education/Training Program; Emergency Provider Student in an Organized Health Care Education/Training Program; PCP Internal Medicine; Visit Provider Hospitalist
DX: I48.92 Unspecified atrial flutter (principal); I50.32 Chronic diastolic (congestive) heart failure; I47.19 Other supraventricular tachycardia; I44.1 Atrioventricular block, second degree; F39 Unspecified mood [affective] disorder; R94.31 Abnormal electrocardiogram [ECG] [EKG]; M05.10 Rheumatoid lung disease with rheumatoid arthritis of unspecified site; T46.2X5A Adverse effect of other antidysrhythmic drugs, initial encounter; J44.9 Chronic obstructive pulmonary disease, unspecified; R19.7 Diarrhea, unspecified; E78.5 Hyperlipidemia, unspecified; I48.0 Paroxysmal atrial fibrillation; I11.0 Hypertensive heart disease with heart failure; Z79.01 Long term (current) use of anticoagulants; Z87.891 Personal history of nicotine dependence; Z79.899 Other long term (current) drug therapy
CPT/HCPCS: 36415; 71045; 71046; 80048; 80053; 83735; 83880; 84443; 84484; 85025; 85610; 87493; 87507; 93005; 94660; 97162; 99285; J2250; J3010

== ENCOUNTER → 2024-03-21 10:36 | Outpatient (BNV) | payer OTHER, SELFPAY | PROVIDERS: Emergency Provider Student in an Organized Health Care Education/Training Program; Visit Provider Internal Medicine Cardiovascular Disease | DX: I48.92 Unspecified atrial flutter (principal) | CPT/HCPCS: 93010; 99223; 99232; 99233 ==

== ENCOUNTER 2024-03-21 14:56 | Outpatient (BNV) | payer OTHER, SELFPAY | END 2024-03-27 12:00 | PROVIDERS: Admitting Provider Student in an Organized Health Care Education/Training Program; Emergency Provider Student in an Organized Health Care Education/Training Program; PCP Internal Medicine; Visit Provider Internal Medicine Cardiovascular Disease | DX: I49.3 Ventricular premature depolarization (principal) | CPT/HCPCS: 93010 ==

== ENCOUNTER 2024-03-21 14:56 | Outpatient (BNV) | payer OTHER, SELFPAY | END 2024-03-24 09:05 | PROVIDERS: Admitting Provider Student in an Organized Health Care Education/Training Program; Emergency Provider Student in an Organized Health Care Education/Training Program; Visit Provider Internal Medicine Cardiovascular Disease | DX: R94.31 Abnormal electrocardiogram [ECG] [EKG] (principal) | CPT/HCPCS: 93010 ==

== ENCOUNTER 2024-03-21 14:56 | Outpatient (BNV) | payer OTHER, SELFPAY | END 2024-03-29 11:00 | PROVIDERS: Admitting Provider Student in an Organized Health Care Education/Training Program; Emergency Provider Student in an Organized Health Care Education/Training Program; PCP Internal Medicine; Visit Provider Internal Medicine Cardiovascular Disease | DX: R00.1 Bradycardia, unspecified (principal) | CPT/HCPCS: 93010 ==

== ENCOUNTER 2024-03-21 14:56 | Outpatient (BNV) | payer OTHER, SELFPAY | END 2024-03-25 08:12 | PROVIDERS: Admitting Provider Student in an Organized Health Care Education/Training Program; Emergency Provider Student in an Organized Health Care Education/Training Program; PCP Internal Medicine; Visit Provider Internal Medicine Cardiovascular Disease | DX: I49.1 Atrial premature depolarization (principal) | CPT/HCPCS: 93010 ==

== ENCOUNTER 2024-03-21 14:56 | Outpatient (BNV) | payer OTHER, SELFPAY | END 2024-03-28 10:38 | PROVIDERS: Admitting Provider Student in an Organized Health Care Education/Training Program; Emergency Provider Student in an Organized Health Care Education/Training Program; PCP Internal Medicine; Visit Provider Internal Medicine Cardiovascular Disease | DX: I49.1 Atrial premature depolarization (principal); R00.1 Bradycardia, unspecified; Z51.81 Encounter for therapeutic drug level monitoring | CPT/HCPCS: 93010 ==

== ENCOUNTER 2024-03-21 14:56 | Outpatient (BNV) | payer OTHER, SELFPAY | END 2024-03-26 11:20 | PROVIDERS: Admitting Provider Student in an Organized Health Care Education/Training Program; Emergency Provider Student in an Organized Health Care Education/Training Program; PCP Internal Medicine; Visit Provider Internal Medicine Cardiovascular Disease | DX: I49.3 Ventricular premature depolarization (principal) | CPT/HCPCS: 93010 ==

== ENCOUNTER → 2024-03-21 14:56 | Outpatient (BNV) | payer OTHER, SELFPAY | PROVIDERS: Admitting Provider Student in an Organized Health Care Education/Training Program; Emergency Provider Student in an Organized Health Care Education/Training Program; Visit Provider Hospitalist | DX: I48.92 Unspecified atrial flutter (principal) | CPT/HCPCS: 99223; 99232; 99233; 99239; 99499 ==

== ENCOUNTER 2024-04-11 08:11 | Observation (INO) | payer OTHER, SELFPAY ==
[2024-04-11] VITALS (10 sets, daily range): BP systolic 110–132; BP diastolic 67–85; PULSE 71–96; RESP 17–20; TEMP 36.9–37.7; O2SAT 95–100; BMI 32.7
--- NOTE | ~2024-04-11 | XR_ITS ---
EXAMINATION: XR CHEST CLINICAL INFORMATION: Chest pain. COMPARISON: 03/28/2024 TECHNIQUE: Frontal view of the chest was obtained. FINDINGS: The lungs are well expanded. No focal consolidation. Small right pleural effusion. Cardiac silhouette is unchanged. Severe degenerative changes of the right shoulder with severe subacromial joint space narrowing. Status post left total shoulder arthroplasty. XR/XR chest 1V IMPRESSION: Small right pleural effusion.
--- NOTE | 2024-04-11 08:12 | ECG_ITS ---
Test Reason : chest pain Blood Pressure : / mmHG Vent. Rate : 099 BPM Atrial Rate : 099 BPM P-R Int : 152 ms QRS Dur : 064 ms QT Int : 354 ms P-R-T Axes : 035 000 059 degrees QTc Int : 454 ms Normal sinus rhythm Normal ECG When compared with ECG of 29-MAR-2024 11:00, Vent. rate has increased BY 42 BPM T wave amplitude has increased in Anterolateral leads Referred By: Generic ED Physician Electronically Signed By:FLETCHER SCHWARZ
[2024-04-11 08:29] LABS: MANUAL DIFF FLAG NO
[2024-04-11 08:32] LABS: Basophils Absolute Auto 0.1 X10*3/uL (0.0-0.2); Basophils Percent Auto 0.7 % (0-2); Eosinophils Absolute Auto 0.2 X10*3/uL (0.0-0.4); Eosinophils Percent Auto 1.7 % (0-4); Hematocrit 43.3 % (37.0-47.0); Hemoglobin 13.6 g/dl (12.0-16.0); Imm Gran Abs Auto 0.03 X10*3/uL (0.00-0.03); Imm Gran Pct Auto 0.3 % (0.0-0.4); Lymphocytes Absolute Auto 1.6 X10*3/uL (1.2-4.9); Lymphocytes Percent Auto 18.3 % (20-40); Mean Corpuscular HGB Conc 31.4 g/dl (31.0-35.0); Mean Corpuscular Hemoglobin 27.9 pg (27.0-33.0); Mean Corpuscular Volume 88.9 fL (80.0-98.0); Monocytes Absolute Auto 0.8 X10*3/uL (0.1-1.2); Monocytes Percent Auto 8.7 % (2-11); Neutrophils Absolute Auto 6.1 x10*3/uL (2.0-8.3); Neutrophils Percent Auto 70.3 % (45-73); Platelet Count 202 X10*3/uL (160-400); Red Blood Count 4.87 X10*6/uL (4.20-5.50); Red Cell Distribution Width 14.5 % (11.0-16.0); White Blood Count 8.6 X10*3/uL (4.8-10.8)
--- NOTE | 2024-04-11 08:46 | PC.NURSE ---
Pt presents to ED from home, medical conference translator utilized. Pt reports she woke up at 5AM this morning with dizziness, heart pounding and severe chest pain. Checked her HR and it was in the 180s. Pt reports since then the chest pain has subsided to a 5/10, cannot describe it. Denies fall, LOC, N/V/D, ABD pain, fever, cough. Alert and oriented, breathing even and unlabored, skin warm and dry. On bedside playground monitor, NSR. LANDRY.
[2024-04-11 08:50] LABS: Troponin-I High Sensitivity 10.4 ng/L (<3.5-17.0)
--- NOTE | 2024-04-11 08:56 | ED.CHESTPAIN ---
HPI - Chest Pain General Chief Complaint: Chest Pain Stated Complaint: CP Time Seen by Provider: 04/11/24 08:32 Source: patient, old records reviewed and insurance counselor Mode of arrival: ambulatory Limitations: no limitations History of Present Illness ED Provider: ZI CORTEZ narrative: 69 yo female with PMH of paroxysmal afib just cardioverted this month currently on xarelto, metoprolol and dofetilide, CHF, asthma/COPD overlap syndrome, RA, CVA, HTN, GERD, mood disorder who presents again with same complaint of dizziness, chest pain radiating to left chest while making coffee felt her heart rate go up to 180s but no n/v or dyspnea. She sat down took her AM medications drank some water and now it is better. She has had this multiple times before and her most recent holter in January shows her afib flutter goes to 180. She has no symptoms now. MD complaint: chest pain Pertinent past history: other (afib) Onset (ago): hour(s) (530am today) Timing of current episode: now resolved Prior episodes: Yes Onset: during rest Pain location: substernal Pain radiation: other (left chest) Severity: moderate Quality: heaviness Relieving factors: other (sitting down, water, medications) Exacerbating factors: nothing Context: other (similar episodes) Associated symptoms: palpitations Treatment prior to arrival: other (AM meds) Related Data Home Medications ?Medication ?Instructions ?Recorded ?Confirmed abatacept 125 mg/mL subcutaneous 125 mg subcut WE 03/21/24 03/21/24 auto-injector (Orencia ClickJect) acetaminophen 650 mg 1,300 mg PO DAILY pain 03/21/24 03/21/24 tablet,extended release albuterol sulfate 2.5 mg/3 mL 2.5 mg inhalation BID PRN 03/21/24 03/21/24 (0.083 %) solution for nebulization Shortness Of Breath Or Wheezing atorvastatin 40 mg tablet 40 mg PO BEDTIME 03/21/24 03/21/24 gabapentin 600 mg tablet 600 mg PO BID 03/21/24 03/21/24 prednisone 5 mg tablet 5 mg PO DAILY 03/21/24 03/21/24 Previous Rx's ?Medication ?Instructions ?Recorded Cock up splint #1 ea 04/12/22 cane #1 ea 10/19/23 rivaroxaban 20 mg tablet (Xarelto) 20 mg PO DAILY #90 tabs 09/14/23 sertraline 25 mg tablet 25 mg PO DAILY 90 days #90 tabs 02/10/24 dofetilide 500 mcg capsule 500 mcg PO Q12H #60 caps 03/29/24 metoprolol succinate 50 mg 50 mg PO BID #60 tabs 03/29/24 tablet,extended release 24 hr cane #1 ea 04/01/24 spironolactone 25 mg tablet 25 mg PO DAILY 90 days #90 tabs 04/01/24 leflunomide 10 mg tablet 10 mg PO DAILY #30 tabs 04/03/24 Allergies Allergy/AdvReac Type Severity Reaction Status Date / Time No Known Allergies Allergy Verified 04/11/24 08:37 [No Known Allergies*] Review of Systems Review of Systems: Constitutional : No Weight loss, No Fever, No Chills ENT/Mouth : No sore throat, No Rhinorrhea Eyes: No Eye Pain, No Swelling Cardiovascular : pos Chest Pain, no SOB, no Dyspnea on Exertion, No Orthopnea, No Edema, pos Palpitations Respiratory : No Cough, No Sputum Gastrointestinal : no Nausea, No Vomiting, No Diarrhea, No abdominal Pain, No Hematochezia, No Melena Genitourinary : No Dysuria, No Urinary Frequency Musculoskeletal : No joint pain, No Myalgias, No Joint Swelling Skin : No Skin Lesions, No rash Neuro : No Weakness, No Numbness, pos Dizziness, No Headache Psych : No Anxiety/Panic, No Depression All other systems reviewed and are negative [facility] Past Medical History Attestation statement: The following information was validated with the patient. Source: old records reviewed Medical History Diastolic heart failure Rheumatoid arthritis flare Abdominal discomfort Left shoulder pain Right wrist pain Right shoulder pain Obesity (BMI 30-39.9) Preoperative clearance Abnormal chest x-ray Obesity Pneumonitis Breast pain, left Diastolic dysfunction Pre-op chest exam Osteoarthritis of shoulders, bilateral Asthma-COPD overlap syndrome Personal history of nicotine dependence History of CVA (cerebrovascular accident) (~2016) ILD (interstitial lung disease) Post-menopausal Hypoxia Seropositive rheumatoid arthritis Right hemiplegia (~2016) Chronic anticoagulation GERD (gastroesophageal reflux disease) Rheumatoid arthritis Obstructive sleep apnea on CPAP Essential hypertension Paroxysmal atrial fibrillation (~2016) Pure hypercholesterolemia Surgical History History of appendectomy History of foot surgery History of shoulder surgery Family History Family History Father No problems noted. Mother No problems noted. Brother Stomach cancer Social History Social History Household Members: None Housing: Apartment Do you presently have visiting nurse or other home services: No Alcohol intake: current Alcohol intake frequency: does not drink Alcohol type: beer Patient Tobacco Use Status: Former Tobacco user Tobacco use type: Cigarette Years Smoked: 20 years Smoked in Last 30 Days: No e-Cigarette/Vaping Use: Never Used Second Hand Smoke Exposure: No Use of substances other than those prescribed or required for medical reasons: No Advance Directives: No Advance Directives Information Provided: Yes service: No Current occupational status: retired Cognitive needs: No Hearing needs: No Vision needs: No Physical Exam Vital Signs: Vital Signs: Last Vital Signs Temp 98.4 F 04/11/24 11:20 Pulse 73 04/11/24 11:20 Resp 17 04/11/24 11:20 BP 111/85 04/11/24 11:20 Pulse Ox 100 04/11/24 11:20 O2 Del Method Room Air 04/11/24 11:20 BMI result Body Mass Index 32.7 Appearance: Alert. Oriented X3. No acute distress. Eyes: Pupils equal, round and reactive to light. ENT: Pharynx normal. Neck: Normal inspection. Neck supple. CVS: Normal heart rate and rhythm. Pulses normal. Respiratory: No respiratory distress. Breath sounds normal. Abdomen: Soft and nontender. Skin: Skin warm and dry. Normal skin color. Normal skin turgor. Extremities: No lower extremity edema. No calf ttp Neuro: Oriented X 3. No motor deficit. No sensory deficit. Medical Decision Making Medical Decision Making MDM Narrative: 69 yo female with PMH of paroxysmal afib just cardioverted this month currently on xarelto, metoprolol and dofetilide, CHF, asthma/COPD overlap syndrome, RA, CVA, HTN, GERD, mood disorder here with c/o dizziness, palpitations HR up to 180s and chest pain. Has had similar episodes in the past with afib and flutter and that is what I suspect happened will obtain labs, trop x 2, ortho VS - on xarelto doubt VTE will monitor and tele and reassess. It seems her symptoms went away after her AM medications. Differential Diagnosis Differential Diagnoses: The differential diagnosis associated with the presentation includes afib flutter, atypical chest pain, acs, doubt VTE on xarelto Admission/Observation Consideration of admission/observation: Escalation of care including admission/observation considered jonnie recommends admission with monitoring overnight Consult Healthcare Provider Management of the patient was discussed with: Secured Entrance Monitor message sent to Jonnie patient now states she has a little bit of pain at this time elevated troponin on 2nd check 120pm Lab Data MDM Lab Attestation statement: I reviewed the patient's lab results. 04/11/24 08:21 04/11/24 08:21 Labs: Lab Results 04/11/24 04/11/24 04/11/24 Range/Units 08:21 10:18 12:40 WBC 8.6 (4.8-10.8) X10*3/uL RBC 4.87 (4.20-5.50) X10*6/uL Hgb 13.6 (12.0-16.0) g/dl Hct 43.3 (37.0-47.0) % MCV 88.9 (80.0-98.0) fL MCH 27.9 (27.0-33.0) pg MCHC 31.4 (31.0-35.0) g/dl RDW 14.5 (11.0-16.0) % Plt Count 202 (160-400) X10*3/uL MPV 12.0 (9.4-12.3) fL Immature Gran % (Auto) 0.3 (0.0-0.4) % Neut % (Auto) 70.3 (45-73) % Lymph % (Auto) 18.3 L (20-40) % [place] % (Auto) 8.7 (2-11) % Eos % (Auto) 1.7 (0-4) % Baso % (Auto) 0.7 (0-2) % Lymph # (Auto) 1.6 (1.2-4.9) X10*3/uL [place] # (Auto) 0.8 (0.1-1.2) X10*3/uL Eos # (Auto) 0.2 (0.0-0.4) X10*3/uL Baso # (Auto) 0.1 (0.0-0.2) X10*3/uL Abs Immat Gran (auto) 0.03 (0.00-0.03) X10*3/uL Absolute Neuts (auto) 6.1 (2.0-8.3) x10*3/uL Absolute Nucleated RBC 0.000 (0.0-0.012) X10*3/uL Nucleated RBC % (auto) 0.0 (0.0-0.2) /100WBC Sodium 141 (135-145) mmol/L Potassium 4.0 (3.3-5.1) mmol/L Chloride 110 H (96-108) mmol/L Carbon Dioxide 19 L (22-29) mmol/L Anion Gap 16 (12-20) BUN 15 (9-16) mg/dL Creatinine 0.69 (0.5-1.4) mg/dL Estim Creat Clear Calc 66.1 Estimated GFR > 60 Random Glucose 88 (60-115) mg/dL Calcium 9.4 D (8.4-10.2) mg/dL Total Bilirubin 0.5 (0.0-1.0) mg/dL Direct Bilirubin 0.2 (0.0-0.5) mg/dL AST 24 (5-31) U/L ALT 20 (0-31) U/L Alkaline Phosphatase 51 (39-117) U/L Troponin I High Sens 10.4 D 25.1 H D (<3.5-17.0) ng/L Total Protein 7.8 (6.5-8.0) g/dL Albumin 3.8 (3.5-5.0) g/dL Lipase 167 H (8-78) U/L Urine Color Yellow Urine Appearance Clear Urine pH 5.5 (5.0-9.0) Ur Specific [place] 1.020 (1.005-1.025) Urine Protein Negative (Neg-Trace) mg/dL Urine Glucose (UA) Negative (Negative) mg/dL Urine Ketones Negative (Negative) mg/dL Urine Blood Negative (Negative) Urine Nitrite Negative (Negative) Ur Leukocyte Esterase Negative (Negative) Independent Interpretation I performed an independent interpretation of an: EKG and Plain X-Ray (small effusion) Interpretation: Rate: 99 Rhythm: NSR [place]: normal Normal P waves. Normal HARI. Normal QRS complex. ST T wave : no VINNIE, nonspecific ST T wave changes aVL qTC: 454 prior studies: no acute ischemia The study has been interpreted contemporaneously by me. . Radiology Impression Discussion of test interpretation with radiology: I have reviewed the radiologist's reading. External Record Review External record reviewed: Inpatient record Discharge Plan Discharge Clinical Impression: Chest pain, Elevated troponin Patient Disposition: Admitted As Inpatient Prescriptions: No Action (DME) Cock up splint See Rx Instructions .Route .MEDSUPPLY Qty: 1 0RF Rx Instructions: Wear on right wrist at night. (DME) cane See Rx Instructions .Route .MEDSUPPLY Qty: 1 0RF Rx Instructions: As directed Xarelto 20 mg tablet 20 mg PO DAILY Qty: 90 2RF sertraline 25 mg tablet 25 mg PO DAILY 90 Days Qty: 90 1RF spironolactone 25 mg tablet 25 mg PO DAILY 90 Days Qty: 90 0RF Protocol: Hold for SBP< HOLD for SBP < : 90 (DME) cane Device See Rx Instructions .Route Qty: 1 0RF Rx Instructions: As directed leflunomide 10 mg tablet 10 mg PO DAILY Qty: 30 0RF atorvastatin 40 mg tablet 40 mg PO BEDTIME gabapentin 600 mg tablet 600 mg PO BID albuterol sulfate 2.5 mg /3 mL (0.083 %) solution for nebulization 2.5 mg inhalation BID PRN (Reason: Shortness Of Breath Or Wheezing) acetaminophen 650 mg tablet extended release 1,300 mg PO DAILY Orencia ClickJect 125 mg/mL auto-injector 125 mg subcut WE prednisone 5 mg tablet 5 mg PO DAILY metoprolol succinate 50 mg Tablet Extended Release 24 Hr 50 mg PO BID Qty: 60 0RF Protocol: Hold for SBP/HR < HOLD for SBP < : 90 HOLD for HR < : 60 dofetilide 500 mcg capsule 500 mcg PO Q12H Qty: 60 0RF Print Language: Macedonian
[2024-04-11 08:57] LABS: Alanine Aminotransferase 20 U/L (0-31); Albumin Level 3.8 g/dL (3.5-5.0); Alkaline Phosphatase 51 U/L (39-117); Anion Gap 16 (12-20); Aspartate Amino Transferase 24 U/L (5-31); Bilirubin Direct 0.2 mg/dL (0.0-0.5); Bilirubin Total 0.5 mg/dL (0.0-1.0); Blood Urea Nitrogen 15 mg/dL (9-16); Calcium 9.4 mg/dL (8.4-10.2); Carbon Dioxide 19 mmol/L (22-29); Chloride 110 mmol/L (96-108); Creatinine Clr Calc Pharmacy 66.1; Estimated Glomerular Filt Rate > 60; Glucose Random 88 mg/dL (60-115); Lipase 167 U/L (8-78); Sodium 141 mmol/L (135-145); Total Protein 7.8 g/dL (6.5-8.0)
[2024-04-11 10:26] LABS: Appearance Urine Clear; Color Urine Yellow; Glucose Urine UA Negative (Negative); Leukocyte Esterase Urine Negative (Negative); Nitrite Urine Negative (Negative); PH 5.5 (5.0-9.0); Urine Blood Negative (Negative); Urine Ketones Negative (Negative); Urine Protein Negative (Neg-Trace)
[2024-04-11 13:08] LABS: Troponin-I High Sensitivity 25.1 ng/L (<3.5-17.0)
--- NOTE | 2024-04-11 13:22 | CA_ITS ---
Transthoracic Echocardiogram Patient (Last, First, Middle): Leeanne Lozada, Gender: Female Date of : 1955 Age: 69 Procedure Date: 04/11/2024 Procedure Type: Transthoracic Echocardiogram Location: ER Height: 149.86 cm Weight: 74.84 kg BSA: 1.70 m2 Heart Rate: 73 bpm BP: 112 / 83 mmHg Service Tech/Welder: Referring MD: Chuy Frederick MD Symptoms: chest pain, elevated trops Study Quality: Adequate w contrast ECG Rhythm: Sinus Conclusions: - The left ventricular systolic function is hyperdynamic. The visually estimated ejection fraction is >70%. - There is moderately increased left ventricular wall thickness. - The left atrium is severely dilated. - There is severe mitral annular calcification. Findings Procedure Information Contrast agent, definity, is being given per protocol without apparent complications. Left Ventricle Normal left ventricular cavity size. There is moderately increased left ventricular wall thickness. The left ventricular systolic function is hyperdynamic. The visually estimated ejection fraction is >70%. There is no evidence of regional wall motion abnormalities. Evidence suggests grade I (mild) diastolic dysfunction. Right Ventricle Normal right ventricular cavity size and systolic function. Atria The left atrium is severely dilated. The right atrium is normal in size. Aortic Valve There is a normal trileaflet aortic valve. There is mild calcification of the aortic valve. There is no aortic valve stenosis. There is no aortic valve regurgitation. Mitral Valve There is severe mitral annular calcification. There is no mitral valve regurgitation. There is no mitral valve stenosis. Pulmonic Valve The pulmonic valve is likely normal. Tricuspid Valve Normal tricuspid valve structure. There is trace tricuspid valve regurgitation. There is no evidence of pulmonary hypertension. Great Vessels The asc aorta is normal in size. Venous The inferior vena cava is normal in size and collapses greater than 50% with inspiration. Pericardium/Pleural There is no evidence of pericardial effusion. Prior Study Comparison No significant change compared to prior study dated: 12/28/2023. Measurements 2D Linear Measurements IVSd: 1.39 0.6-0.9/0.6-1.0 cm LVIDd: 2.88 3.9-5.3/4.2-5.9 cm LVIDd Index: 1.69 2.4-3.2/2.2-3.1 cm/m2 LVIDs: 1.75 2.0-3.6 cm LVPWd: 1.46 0.7-1.1 cm Ao Root: 2.80 2.1-3.5 cm LA Diam: 3.80 2.7-3.8/3.0-4.0 cm LAIDs Index: 2.24 1.5-2.3 cm/m2 LV Mass: 170.81 67-162/88-224 g LV Mass Index: 100.48 43-95/49-115 g/m2 LVOT Diam: 2.10 3.0+(-)1.3 cm 2D Systolic Function EF 4C: 77.80 >55% EF 2C: 77.00 >55% EF BiP: 76.80 >55% Mitral Valve MV VTI: 0.42 MV Pk Latrell: 1.59 MV Mn Latrell: 0.94 MV Pk Grad: 10.00 MV Mn Grad: 4.00 MV Pk E: 0.92 MV PK A: 1.47 MV Decel Time: 412.00 E/A: 0.60 E'Lateral: 3.70 E'Medial: 3.26 E/E' Med: 28.30 E/E' Lat: 24.90 PHT: 121.00 MVA PHT: 1.82 MVA Continuity: 2.28 Decel [place]: 2.24 Aortic Valve AoV Pk Latrell: 1.56 AoV Mn Latrell: 0.92 AoV VTI: 0.29 AoV Pk Grad: 10.00 Aov Mn Grad: 4.00 RICHARD Cont.VTI: 3.40 LVOT LVOT Pk Latrell: 1.43 LVOT Mn Latrell: 1.00 LVOT VTI: 0.28 LVOT Pk Grad: 8.00 LVOT Mn Grad: 5.00 LVOT Diam: 2.10 LVOT Area: 3.46 Diastolic Function MV Pk E: 0.92 MV Pk A: 1.47 E/A: 0.60 E'Medial: 3.26 E/E' Med: 28.30 E' Laterial: 3.70 E/E' Lat: 24.90 Right Ventricle TAPSE (mm): 22.00 TVS' Latrell: 12.50 Tricuspid Valve TR Pk Latrell: 2.21 TR Pk Grad: 20.00 RA Press: 3.00 RVSP: 23.00 Great Vessels Aorta Ao Root-2D: 2.80 2.0-3.7 cm Ao Asc: 3.00 2.1-3.4 cm Pulmonary Valve PV Pk Latrell: 0.77 Peak PV Grad: 2.00 Updated in Other Vendor System with Status of Final Cuhy Frederick MD electronically signed on 04/11/2024 3:55:59 PM with status of Final
[2024-04-11] MEDS: Morphine Sulfate 2 MG/ML CARTRIDGE IVPUSH (14:03)
--- NOTE | 2024-04-11 15:16 | PHA.MEDREC ---
Pharmacy Consult ? Medication Reconciliation Pharmacy has completed the medication reconciliation. Confirmed medications with an shell fisherman and was able to confirm medications with patient and daughter came in mid way through and was able to help with the rest of them. Patient takes Orencia ClickJet injections every Sunday; patient confirmed she took dose this past Sunday. Patient also confirmed they are taking Xarelto.
--- NOTE | 2024-04-11 16:38 | P.HPHOSP_ITS ---
History of Present Illness Date of Service: 04/11/24 Attending physician on admission: Theresa Donaldson Chief Complaint: Chest pain and palpitations 69yo F with pAF on rivaroxaban, HFpEF, asthma/COPD overlap, RA, hx CVA, HTN, GERD, mood disorder-had recent admission for chest pain and AFib with RVR for which patient received patient was started on dofetilide and monitored -patient went home on 500 mg p.o. b.i.d. Tikosyn as well as recommended close outpatient follow-up with reeling machine setup operator-patient will have outpatient Holter monitor and will be referred to EP study. Patient came today because started having chest pain-she says she has intermittent left-sided chest pain, like something is pricking, reproducible, sometimes stays 4 days, denies any radiation currently. She said she started having chest pain when she was trying to make coffee, then she said down took her a.m. medications, and drink some water and feeling better afterwards, also had palpitations(as per ed note hr of 180's) as well as had some dizziness. CBC and BMP seems fine, troponin 10.4-25.1 -will add another trops.cxr :Small right pleural effusion. Denies any new complaint of shortness of breath or abdominal pain or fever or chills or nausea or vomiting or cough or any weakness or numbness. ekg-nsr ,qtc 454 ms. echo: Conclusions: - The left ventricular systolic function is hyperdynamic. The visually estimated ejection fraction is >70%. - There is moderately increased left ventricular wall thickness. - The left atrium is severely dilated. - There is severe mitral annular calcification. Review of Systems 2 Review of Systems: as above. Yes all other systems are reviewed and are negative [facility] Medical History Diastolic heart failure Rheumatoid arthritis flare Abdominal discomfort Left shoulder pain Right wrist pain Right shoulder pain Obesity (BMI 30-39.9) Preoperative clearance Abnormal chest x-ray Obesity Pneumonitis Breast pain, left Diastolic dysfunction Pre-op chest exam Osteoarthritis of shoulders, bilateral Asthma-COPD overlap syndrome Personal history of nicotine dependence History of CVA (cerebrovascular accident) (~2017) ILD (interstitial lung disease) Post-menopausal Hypoxia Seropositive rheumatoid arthritis Right hemiplegia (~2017) Chronic anticoagulation GERD (gastroesophageal reflux disease) Rheumatoid arthritis Obstructive sleep apnea on CPAP Essential hypertension Paroxysmal atrial fibrillation (~2017) Pure hypercholesterolemia Family History Father No problems noted. Mother No problems noted. Brother Stomach cancer Surgical History History of appendectomy History of foot surgery History of shoulder surgery Social History Household Members: None Housing: Apartment Do you presently have visiting nurse or other home services: No Alcohol intake: current Alcohol intake frequency: does not drink Alcohol type: beer Patient Tobacco Use Status: Former Tobacco user Tobacco use type: Cigarette Years Smoked: 20 years Smoked in Last 30 Days: No e-Cigarette/Vaping Use: Never Used Second Hand Smoke Exposure: No Use of substances other than those prescribed or required for medical reasons: No Advance Directives: No Advance Directives Information Provided: Yes service: No Current occupational status: retired Cognitive needs: No Hearing needs: No Vision needs: No Meds Allergies Allergy/AdvReac Type Severity Reaction Status Date / Time No Known Allergies Allergy Verified 04/11/24 08:37 [No Known Allergies*] Active Medications: Current Medications Atorvastatin Calcium (Atorvastatin Calcium 40 Mg Tablet) 40 mg PO BEDTIME [facility] Leflunomide (Leflunomide 10 Mg Tablet) 10 mg PO DAILY [facility] Metoprolol Succinate (Metoprolol Succinate Er 50 Mg Tab.Er.24h) 50 mg PO BID RIAZ; Protocol Non-Formulary Medication (Abatacept [Orencia Clickject]) 125 mg SUBCUT WE [facility] Non-Formulary Medication (Dofetilide) 500 mcg PO Q12H [facility] Prednisone (Prednisone 5 Mg Tablet) 5 mg PO DAILY [facility] Rivaroxaban (Rivaroxaban 20 Mg Tablet) 20 mg PO DAILY [facility] Sertraline HCl (Sertraline Hcl 25 Mg Tablet) 25 mg PO DAILY [facility] Sodium Chloride (0.9 % Sodium Chloride Flush 3 Ml Syringe) 3 ml IVFLUSH QSHIFT [facility] Spironolactone (Spironolactone 25 Mg Tablet) 25 mg PO DAILY RIAZ; Protocol Home Medications ?Medication ?Instructions ?Recorded ?Confirmed ?Last Taken ?Type abatacept 125 mg/mL subcutaneous 125 mg subcut WE 0504/11/24 04/09/24 History auto-injector (Orencia ClickJect) atorvastatin 40 mg tablet 40 mg PO BEDTIME 03/21/24 04/11/24 04/10/24 History gabapentin 600 mg tablet 600 mg PO DAILY PRN Pain 03/21/24 04/11/24 04/11/24 06:00 History prednisone 5 mg tablet 5 mg PO DAILY 03/21/24 04/11/24 04/11/24 06:00 History Physical Exam 2 Vital Signs and Narrative: Vital Signs: Last Vital Signs Temp 98.7 F 04/11/24 16:35 Pulse 84 04/11/24 16:35 Resp 19 04/11/24 16:35 BP 110/67 04/11/24 16:35 Pulse Ox 97 04/11/24 16:35 O2 Del Method Room Air 04/11/24 16:35 BMI result Body Mass Index 32.7 Appearance: Alert.? Oriented X3.? cvs: rrr, [id number] res: clear to auscultation ,no rhonchii or wheezing abd: no rebound or guarding ,nt, bs present. ext pulses present , no cyanosis , neuro: axo3 , nonfocal. Results Labs 04/11/24 08:21 04/11/24 08:21 Labs: Laboratory Results - last 24 hr 04/11/24 04/11/24 04/11/24 08:21 10:18 12:40 MCV 88.9 MCH 27.9 MCHC 31.4 RDW 14.5 Plt Count 202 MPV 12.0 Immature Gran % (Auto) 0.3 Neut % (Auto) 70.3 Lymph % (Auto) 18.3 L [place] % (Auto) 8.7 Eos % (Auto) 1.7 Baso % (Auto) 0.7 Lymph # (Auto) 1.6 [place] # (Auto) 0.8 Eos # (Auto) 0.2 Baso # (Auto) 0.1 Abs Immat Gran (auto) 0.03 Absolute Neuts (auto) 6.1 Absolute Nucleated RBC 0.000 Nucleated RBC % (auto) 0.0 Anion Gap 16 Estim Creat Clear Calc 66.1 Estimated GFR > 60 Random Glucose 88 Calcium 9.4 D Total Bilirubin 0.5 Direct Bilirubin 0.2 AST 24 ALT 20 Alkaline Phosphatase 51 Troponin I High Sens 10.4 D 25.1 H D Total Protein 7.8 Albumin 3.8 Lipase 167 H Urine Color Yellow Urine Appearance Clear Urine pH 5.5 Ur Specific [place] 1.020 Urine Protein Negative Urine Glucose (UA) Negative Urine Ketones Negative Urine Blood Negative Urine Nitrite Negative Ur Leukocyte Esterase Negative Imaging Radiologist's Impressions: Impressions Chest X-Ray 04/11/24 09:25 IMPRESSION: Small right pleural effusion. Assessment and Plan (1) Chest pain: Qualifiers: Chest pain type: unspecified Qualified Code(s): R07.9 - Chest pain, unspecified Status: Acute (2) Elevated troponin: Status: Acute Plan 69yo F with pAF on rivaroxaban, HFpEF, asthma/COPD overlap, RA, hx CVA, HTN, GERD-came for chest pain and palpitations Chest pain Mildly elevated troponin Also had elevated heart rate as per ED documentation-which seems to be improved Currently patient says that chest pain improved significantly Will trend troponin( 09-05 -next added.) echo -seems fine -ef 70%, no wma continue statin,rivaraxaban. ed d/w cardiology-recomended to moniter overnight since patient has recurrent symptoms. cardiology eval. Paf : As per ED documentation had palpitation, also elevated heart rate. Seems to be improved, we will continue home metoprolol and Tikosyn. Monitor on tele cardiology eval. HTN: stable - metoprolol, spironolactone. HFpEF: stable,seems euvolemic-continue metoprolol, spironolactone. RA- continue leflunomide + prednisone asthma/COPD overlap- continue prn albuterol HLD- statin mood disorder- sertraline VTE ppx- rivaroxaban. Obesity: Encouraged to lose weight and cutdown calories. Patient will benefit from observation stay- for workup for chest pain/palpitation symptomatic-hx of aflutter with reccurrent symptoms , cardiology input. Above management discussed with the patient in detail length with the help of spanish interpreter, she understand and in agreement with the above plan, time spent 70 minute, patient is full code. Quality Stroke Does the patient have a stroke diagnosis?: No VTE Prior VTE?: No VTE Risk Level:: Medical - moderate - high VTE Device Contraindication: N/A - Device Ordered VTE Drug Contraindication: N/A - Med Ordered
[2024-04-11 18:02] LABS: Troponin-I High Sensitivity 23.5 ng/L (<3.5-17.0)
[2024-04-11] MEDS: Metoprolol Succinate ER 50 MG TAB.ER.24H PO (22:27)
[2024-04-11] MEDS: Atorvastatin Calcium 40 MG TABLET PO (22:28)
[2024-04-11] MEDS: Melatonin 3 MG TABLET 6 MG PO (23:27)
[2024-04-11] MEDS: Acetaminophen 325 MG TABLET 975 MG PO (23:27)
[2024-04-11] MEDS: 0.9 % Sodium Chloride Flush 3 ML SYRINGE IVFLUSH (23:29)
[2024-04-12] MEDS: Omeprazole 20 MG CAPSULE.DR PO (06:25)
[2024-04-12 07:32] VITALS: BP 122/68; PULSE 71; RESP 18; TEMP 36.1; O2SAT 97
--- NOTE | 2024-04-12 09:13 | PM.CNCAR ---
History of Present Illness History of Present Illness Date of Service: 04/12/24 Chief complaint: Chest pain/palpatations Narrative: This is a cardiology consultation regarding elevated troponins. Patient was seen in the hospital recently by Dr. Montoya. According to his last note, highly symptomatic atrial flutter, suppressed with Tikosyn. Also kept on low-dose beta-blockers. She was supposed to be having an outpatient Holter monitor and then followed up with electrophysiology for consideration of ablation. Additionally, has diastolic congestive heart failure. She states that as today, all of a sudden she felt as though her heart was going very fast. There was a question of heart rate in the 180s but not clear how that information came about. Additionally, chest pain around that time. Then she came to the ER but at that time she was back to normal sinus rhythm. There was small bump in troponins. Eventually, she was admitted for further care. Today, she states she feels fine. Review of Systems Review of Systems: Yes all other systems are reviewed and are negative Constitutional: Constitutional: Reports as per HPI and Reports no additional constitutional complaints Eyes: Eyes: Reports as per HPI and Denies no additional eye complaints ENT: Denies system reviewed and no additional complaints, except as documented and Reports as per HPI Cardiovascular: Cardiovascular: Reports as per HPI, Reports no additional cardiovascular complaints, Denies acrocyanosis, Denies cool extremities, Denies chest pain, Denies leg edema, Denies lightheadedness, Denies palpitations and Denies dyspnea Respiratory: Respiratory: Reports as per HPI, Denies no additional respiratory complaints and Denies dyspnea Gastrointestinal: Gastrointestinal: Reports as per HPI and Denies no additional gastrointestinal complaints Genitourinary: Genitourinary: Reports as per HPI Musculoskeletal: Musculoskeletal: Reports no additional musculoskeletal complaints and Reports as per HPI Integumentary/Breasts: Skin/Breast: Reports system reviewed and no additional complaints, except as docu Neurologic: Reports system reviewed and no additional complaints, except as documented and Reports as per HPI Psychiatric: Psychiatric: Reports no additional psychiatric complaints and Reports as per HPI Endocrine: Endocrine: Reports no additional endocrine complaints, Reports as per HPI and Denies palpitations Hematologic/Lymphatic: Hematologic/Lymphatic: Reports no additional hematologic/lymphatic complaints and Reports as per HPI Allergic/Immunologic: Allergic/Immunologic: Reports no additional allergic/immunologic complaints and Reports as per HPI FOR[facility]LY [facility], [facility] Past Medical History Medical History Diastolic heart failure Rheumatoid arthritis flare Abdominal discomfort Left shoulder pain Right wrist pain Right shoulder pain Obesity (BMI 30-39.9) Preoperative clearance Abnormal chest x-ray Obesity Pneumonitis Breast pain, left Diastolic dysfunction Pre-op chest exam Osteoarthritis of shoulders, bilateral Asthma-COPD overlap syndrome Personal history of nicotine dependence History of CVA (cerebrovascular accident) (~2017) ILD (interstitial lung disease) Post-menopausal Hypoxia Seropositive rheumatoid arthritis Right hemiplegia (~2017) Chronic anticoagulation GERD (gastroesophageal reflux disease) Rheumatoid arthritis Obstructive sleep apnea on CPAP Essential hypertension Paroxysmal atrial fibrillation (~2017) Pure hypercholesterolemia Family History Family History Father No problems noted. Mother No problems noted. Brother Stomach cancer Surgical History Surgical History History of appendectomy History of foot surgery History of shoulder surgery Social History Social History Household Members: None Housing: Apartment Do you presently have visiting nurse or other home services: Yes Alcohol intake: current Alcohol intake frequency: does not drink Alcohol type: beer Patient Tobacco Use Status: Former Tobacco user Tobacco use type: Cigarette Years Smoked: 20 years e-Cigarette/Vaping Use: Never Used Second Hand Smoke Exposure: No service: No Current occupational status: retired Cognitive needs: No Hearing needs: No Vision needs: No Meds Allergies Allergy/AdvReac Type Severity Reaction Status Date / Time No Known Allergies Allergy Verified 04/11/24 08:37 [No Known Allergies*] Active Medications: Current Medications Acetaminophen (Acetaminophen 325 Mg Tablet) 975 mg PO Q6H PRN PRN Reason: mild pain, headache or fever Last Admin: 04/11/24 23:27 Dose: 975 mg Atorvastatin Calcium (Atorvastatin Calcium 40 Mg Tablet) 40 mg PO BEDTIME RIAZ Last Admin: 04/11/24 22:28 Dose: 40 mg Leflunomide (Leflunomide 10 Mg Tablet) 10 mg PO DAILY RIAZ Melatonin (Melatonin 3 Mg Tablet) 6 mg PO BEDTIME PRN PRN Reason: Insomnia Last Admin: 04/11/24 23:27 Dose: 6 mg Metoprolol Succinate (Metoprolol Succinate Er 50 Mg Tab.Er.24h) 50 mg PO BID [facility]; Protocol Last Admin: 04/11/24 22:27 Dose: 50 mg Non-Formulary Medication (Abatacept [Orencia Clickject]) 125 mg SUBCUT WE [facility] Pt Own (Dofetilide (500 Mcg Capsule)) 500 mcg PO Q12H [facility] Last Admin: 04/12/24 06:25 Dose: 500 mcg Omeprazole (Omeprazole 20 Mg Capsule.Dr) 20 mg PO DAILY@0630 [facility] Last Admin: 04/12/24 06:25 Dose: 20 mg Prednisone (Prednisone 5 Mg Tablet) 5 mg PO DAILY [facility] Rivaroxaban (Rivaroxaban 20 Mg Tablet) 20 mg PO DAILY [facility] Sertraline HCl (Sertraline Hcl 25 Mg Tablet) 25 mg PO DAILY [facility] Sodium Chloride (0.9 % Sodium Chloride Flush 3 Ml Syringe) 3 ml IVFLUSH QSHIFT [facility] Last Admin: 04/11/24 23:29 Dose: 3 ml Spironolactone (Spironolactone 25 Mg Tablet) 25 mg PO DAILY [facility]; Protocol Home Medications ?Medication ?Instructions ?Recorded ?Confirmed ?Last Taken ?Type abatacept 125 mg/mL subcutaneous 125 mg subcut WE 03/21/24 04/11/24 04/09/24 History auto-injector (Orencia ClickJect) atorvastatin 40 mg tablet 40 mg PO BEDTIME 03/21/24 04/11/24 04/10/24 History gabapentin 600 mg tablet 600 mg PO DAILY PRN Pain 03/21/24 04/11/24 04/11/24 06:00 History prednisone 5 mg tablet 5 mg PO DAILY 03/21/24 04/11/24 04/11/24 06:00 History Physical Exam Vital Signs: Vital Signs: Last Vital Signs Temp 97.0 F 04/12/24 07:32 Pulse 71 04/12/24 07:32 Resp 18 04/12/24 07:32 BP 122/68 04/12/24 07:32 Pulse Ox 97 04/12/24 07:32 O2 Del Method Room Air 04/12/24 07:32 BMI result Body Mass Index 32.7 Const: General: comfortable and no acute distress Orientation/consciousness: patient oriented x3 HEENT: Other: Unremarkable Head: Yes normal to inspection Neck: Neck: Yes normal visual inspection Chest: Chest palpation & inspection: normal inspection of the chest Resp: Auscultation: clear to auscultation bilaterally Cardio: Palpation: normal PMI Heart sounds: S1 normal heart sound present, S2 normal heart sound present, no gallops, no murmurs and no rubs GI: Palpation (GI): Soft to palpation Back/Spine/Pelvis: Other: unremarkable Skin: General skin exam: no rashes or lesions noted Neuro: General: patient oriented x3 Extrem: General: Yes normal to inspection Psych: Mental Status: mental status grossly normal Objective Labs and Meds 04/11/24 08:21 04/11/24 08:21 Lab results: Laboratory Results - last 24 hr 04/11/24 04/11/24 04/11/24 10:18 12:40 17:26 Troponin I High Sens 25.1 H D 23.5 H Urine Color Yellow Urine Appearance Clear Urine pH 5.5 Ur Specific [place] 1.020 Urine Protein Negative Urine Glucose (UA) Negative Urine Ketones Negative Urine Blood Negative Urine Nitrite Negative Ur Leukocyte Esterase Negative ECG Interpretation: EKG with sinus rhythm at 99/Min; no significant ST-T changes to suggest ischemia or infarction. Normal NM and corrected QT. Imaging Radiologist's impression: Impressions Chest X-Ray 04/11/24 09:25 IMPRESSION: Small right pleural effusion. Assessment and Plan (1) Paroxysmal atrial flutter: Status: Acute (2) Elevated troponin: Status: Acute (3) Visit for monitoring Tikosyn therapy: Status: Acute Plan High sensitive troponin levels are 10 followed by 25 and 23. Borderline elevation. EKG is not showing any ischemic findings or atrial arrhythmias or QT prolongation. Telemetry is unremarkable. Unclear if she had an episode of atrial flutter with rapid rate at again at home causing symptoms. Any case, no overt findings during the last 24 hours. We can arrange outpatient Holter and then follow-up in the clinic. Discussed with Dr. Donaldson. Procedures Date of Service Date of Service: 04/12/24
--- NOTE | 2024-04-12 09:46 | PM.DS ---
DS: Providers Provider Date of Service: 04/12/24 Date of admission: 04/11/24 16:26 Date of discharge: 04/12/24 Primary care physician: Dafne Pollard MD Consults: 04/11/24 13:41 Consult to Cardiology Stat Consulting Provider: [facility] Reason for consultation: elevated troponin, pain Has provider been notified: Yes 04/11/24 17:04 Consult to Cardiology Routine Consulting Provider: [facility] Reason for consultation: chest pain/palpatations Has provider been notified: No Attending physician on discharge: Theresa Donaldson Discharging clinician: Theresa Donaldson DS: Diagnosis Discharge Diagnosis (1) Chest pain: Status: Acute (2) Elevated troponin: Status: Acute DS: Summary Hospital Course Hospital Course: 69-year-old Andorran-speaking female with a PMH significant for?paroxysmal AFib on Xarelto, HFpEF, asthma/COPD overlap syndrome, rheumatoid arthritis, hx of CVA (2017), HTN, GERD, and mood disorder who presents to the ED for evaluation of left-sided chest and?jaw pain since this morning. Patient reports has been taking her medications as prescribed, but this morning experienced lightheadedness, dizziness, and left-sided jaw pain that radiated to the left side of her chest while sitting. Discomfort lasted for approximately 15 minutes. Patient called her daughter who brought her to the ED for further examination where she was noted to be in atrial flutter with RVR. ED consulted Dr. Pacheco in Cardiology who recommended cardioversion in the ED given patient's symptomatic presentation and anticoagulated status. Cardioversion was attempted in the ED x3; on 3rd attempt patient was converted into normal sinus rhythm, though she quickly reverted back into atrial flutter. Cardiology then recommended patient be admitted to the medical floor for additional treatment and observation. Since cardioversion patient has gone in and out of normal sinus rhythm at least 3 times. Currently denies chest pain/pressure, palpitations. No jaw discomfort. Chronic SOB around baseline. Reports had some nausea and vomiting 1-2 days ago. No fever, chills, or abdominal pain. In the ED pt was tachycardic up to 147, vitals otherwise largely stable WNL. Labs were significant for a mildly elevated BNP of 231, otherwise grossly unremarkable. Initial troponin 3.1 with repeat flat at 3.8 No leukocytosis. Stable H&H. No significant electrolyte abnormalities. Renal and hepatic function WNL. Albumin 3.6. CXR showed nonspecific increased bronchovascular markings that could be related to pulmonary edema, atypical/viral infection, small airway disease, or underlying interstitial lung abnormality. Initial EKG demonstrated atrial flutter with variable AV block but no evidence of significant ST elevations or depressions. Repeat EKG showed normal sinus rhythm and third EKG showed pt was agin in atrial flutter with variable AV block. Pt was treated with fentanyl, Versed, and flecainide. Pt will be admitted to the hospital for treatment and further evaluation of symptomatic atrial flutter with RVR. Hospital course: Patient came to the hospital due to chest pain, palpitation, elevated troponin: Patient symptoms resolved spontaneously, EKG shows NSR, troponin is slightly elevated possibly related to palpitations, chest pain seems atypical,telemetry seems fine -Unclear if she had an episode of atrial flutter with rapid rate at again at home causing symptoms.seen by Cardiology recommended to continue Tikosyn and home medications. Patient will follow-up outpatient with Cardiology. Patient was strongly advised to avoid caffeinated or alcohol due to above. plan: continue home meds cardiology will arrange outpatient followup. Above management discussed with the patient detail length she understand and in agreement with the above plan, time spent 35 min Time Attestation Total time managing care of this patient today: 35 mintues. Discharge Coordination Time (in mins): 35 min Quality: Safe Use of Opioids Does Pt have an Active Cancer Diagnosis on the Problem List?: No Quality: Stroke Does the patient have a stroke diagnosis?: No Physical Exam Vital Signs: Vital Signs: Last Vital Signs Temp 97.0 F 04/12/24 07:32 Pulse 71 04/12/24 07:32 Resp 18 04/12/24 07:32 BP 122/68 04/12/24 07:32 Pulse Ox 97 04/12/24 07:32 O2 Del Method Room Air 04/12/24 07:32 BMI result Body Mass Index 32.7 Gen: in no acute distress Lungs: clear to auscultation bilaterally Heart: regular rhythm, no murmurs Abd: soft, non-tender, non-distended Ext: no edema Skin: warm/well-perfused Neuro: alert and oriented x3, no focal findings Psych: appropriate affect DS: Data Data Completed and Pending Completed studies during hospitalization [Text1]: Procedures Assistance with Respiratory Ventilation, Less than 24 Consecutive Hours, Continuous Positive Airway Pressure (04/15/21) Sikh of Cardiac Rhythm, Single (03/21/24) Labs on day of discharge: Laboratory Results - last 24 hr 04/11/24 04/11/24 04/11/24 10:18 12:40 17:26 Troponin I High Sens 25.1 H D 23.5 H Urine Color Yellow Urine Appearance Clear Urine pH 5.5 Ur Specific [place] 1.020 Urine Protein Negative Urine Glucose (UA) Negative Urine Ketones Negative Urine Blood Negative Urine Nitrite Negative Ur Leukocyte Esterase Negative Imaging Chest x-ray: Radiologist's impression: ITS Impressions Chest X-Ray 04/11/24 09:25 IMPRESSION: Small right pleural effusion. Discharge Plan Discharge Anticipated Discharge Date/Time: 04/12/24 09:42 Patient Disposition: Home, Self-Care Discharge Diagnosis: Elevated troponin, palpitations, chest pain. Referrals: Dafne Betancourt MD [Primary Care Provider] - 1 Week Discharge Medications: Continued (DME) Cock up splint See Rx Instructions .Route .MEDSUPPLY Qty: 1 0RF Rx Instructions: Wear on right wrist at night. (DME) cane See Rx Instructions .Route .MEDSUPPLY Qty: 1 0RF Rx Instructions: As directed Xarelto 20 mg tablet 20 mg PO DAILY Qty: 90 2RF sertraline 25 mg tablet 25 mg PO DAILY 90 Days Qty: 90 1RF spironolactone 25 mg tablet 25 mg PO DAILY 90 Days Qty: 90 0RF Protocol: Hold for SBP< HOLD for SBP < : 90 (DME) cane Device See Rx Instructions .Route Qty: 1 0RF Rx Instructions: As directed leflunomide 10 mg tablet 10 mg PO DAILY Qty: 30 0RF atorvastatin 40 mg tablet 40 mg PO BEDTIME gabapentin 600 mg tablet 600 mg PO DAILY PRN (Reason: Pain) Orencia ClickJect 125 mg/mL auto-injector 125 mg subcut WE prednisone 5 mg tablet 5 mg PO DAILY metoprolol succinate 50 mg Tablet Extended Release 24 Hr 50 mg PO BID Qty: 60 0RF Protocol: Hold for SBP/HR < HOLD for SBP < : 90 HOLD for HR < : 60 dofetilide 500 mcg capsule 500 mcg PO Q12H Qty: 60 0RF Discharge Orders: Discharge Order (Routine); Ordered 04/12/24 Ordered By: Theresa Donaldson Diet: Advance to usual diet Activity on Discharge: As tolerated Stand Alone Forms: Patient Portal Discharge page Print Language: Andorran Care Plan Goals: Patient came to the hospital due to chest pain, palpitation, elevated troponin: Patient symptoms resolved spontaneously, EKG shows NSR, troponin is slightly elevated probably related to palpitations, chest pain seems atypical-seen by Cardiology recommended to continue Tikosyn and home medications. Patient will follow-up outpatient with Cardiology. Patient was strongly advised to avoid caffeinated or alcohol due to above. Health Concerns: As above. Plan of Treatment: As above. Assessment: As above.
[2024-04-12] MEDS: predniSONE 5 MG TABLET PO (10:47)
[2024-04-12] MEDS: Leflunomide 10 MG TABLET PO (10:48)
[2024-04-12] MEDS: Rivaroxaban 20 MG TABLET PO (10:48)
[2024-04-12] MEDS: Spironolactone 25 MG TABLET PO (10:48)
[2024-04-12] MEDS: Metoprolol Succinate ER 50 MG TAB.ER.24H PO (10:48)
[2024-04-12] MEDS: Sertraline HCL 25 MG TABLET PO (10:48)
[2024-04-12] MEDS: 0.9 % Sodium Chloride Flush 3 ML SYRINGE IVFLUSH (10:48)
--- NOTE | 2024-04-12 10:52 | MHC.CM.PN ---
pt has been medically cleared for DC, her plan is home, self care, family to transport.
== END 2024-04-12 13:37 | disposition home or self-care (01) ==
LOC: HO.ED 13:51 → HO.EDOVER 16:41 → HO.IMC 16:53
PROVIDERS: Admitting Provider Internal Medicine; Emergency Provider Emergency Medicine; PCP Internal Medicine; Visit Provider Internal Medicine
DX: R07.9 Chest pain, unspecified (principal); R79.89 Other specified abnormal findings of blood chemistry; Z51.81 Encounter for therapeutic drug level monitoring; R00.2 Palpitations; R42 Dizziness and giddiness; I48.92 Unspecified atrial flutter; Z79.899 Other long term (current) drug therapy; I11.0 Hypertensive heart disease with heart failure; I50.9 Heart failure, unspecified; J44.9 Chronic obstructive pulmonary disease, unspecified; M06.9 Rheumatoid arthritis, unspecified; K21.9 Gastro-esophageal reflux disease without esophagitis; J90 Pleural effusion, not elsewhere classified
CPT/HCPCS: 36415; 71045; 80048; 80076; 81003; 83690; 84484; 85025; 93005; 93306; 96374; 99222; 99285; J2270; Q9957

== ENCOUNTER → 2024-04-11 13:22 | Outpatient (BNV) | payer OTHER, SELFPAY | PROVIDERS: Admitting Provider Internal Medicine; Emergency Provider Emergency Medicine; PCP Internal Medicine; Visit Provider Internal Medicine | DX: R07.9 Chest pain, unspecified (principal) | CPT/HCPCS: 93010; 93306 ==

== ENCOUNTER → 2024-04-11 16:26 | Outpatient (BNV) | payer OTHER, SELFPAY | PROVIDERS: Admitting Provider Internal Medicine; Emergency Provider Emergency Medicine; PCP Internal Medicine; Visit Provider Internal Medicine | DX: R07.9 Chest pain, unspecified (principal); R79.89 Other specified abnormal findings of blood chemistry | CPT/HCPCS: 99222; 99239 ==

== ENCOUNTER → 2024-04-11 16:26 | Outpatient (BNV) | payer OTHER, SELFPAY | PROVIDERS: Admitting Provider Internal Medicine; Emergency Provider Emergency Medicine; PCP Internal Medicine; Visit Provider Internal Medicine | DX: I48.92 Unspecified atrial flutter (principal); R79.89 Other specified abnormal findings of blood chemistry; Z51.81 Encounter for therapeutic drug level monitoring; Z79.899 Other long term (current) drug therapy | CPT/HCPCS: 99223 ==

== ENCOUNTER → 2024-04-24 08:59 | Outpatient (REF) | payer OTHER, SELFPAY ==
--- NOTE | 2024-04-24 09:01 | HM_ITS ---
* Total monitoring time 2 days. * Underlying rhythm is sinus with an average rate of 77/Min. * Frequent supraventricular ectopy with a burden of 2.4%. Short runs noted. Longest episode 38 minutes. Fastest 175/Min. Possible atrial tachycardia versus flutter. * Rare ventricular ectopy. * No significant pauses or AV blocks. * No patient markers or diary events. MTDD
== END ==
LOC: HO.CARD 08:59
PROVIDERS: PCP Internal Medicine; Visit Provider Internal Medicine Cardiovascular Disease
DX: I48.92 Unspecified atrial flutter (principal)
CPT/HCPCS: 93225

== ENCOUNTER → 2024-04-24 09:01 | Outpatient (BNV) | payer OTHER, SELFPAY | PROVIDERS: PCP Internal Medicine; Visit Provider Internal Medicine | DX: I47.10 Supraventricular tachycardia, unspecified (principal) | CPT/HCPCS: 93227 ==

== ENCOUNTER 2024-04-25 08:34 | Outpatient (REF) | payer OTHER, SELFPAY ==
[2024-04-25 11:21] LABS: C Reactive Protein 0.25 mg/dL (< or = 0.50)
[2024-04-25 11:43] LABS: Erythrocyte Sedimentation Rate 69 MM/HR (0-20)
== END 2024-04-25 08:35 | disposition home or self-care (01) ==
LOC: HO.LAB 08:34
PROVIDERS: PCP Internal Medicine; Visit Provider Nurse Practitioner Family
DX: M05.79 Rheumatoid arthritis with rheumatoid factor of multiple sites without organ or systems involvement (principal)
CPT/HCPCS: 36415; 85652; 86140; 99212

== ENCOUNTER 2024-04-25 08:34 | Outpatient (AMB) | payer OTHER, SELFPAY ==
[2024-04-25 08:37] VITALS: BP 142/62; PULSE 65; O2SAT 96; BMI 32.1
--- NOTE | 2024-04-25 08:37 | A.OFFVIS_ITS ---
Vital Signs 04/25/24 08:37 Height 4 ft 11 in Weight 158 lb 15.253 oz BMI 32.1 BP 142/62 H Blood Pressure Location Rt brachial Position Sitting Pulse 65 Pulse Source Pulse Oximeter Pulse Oximetry (%) 96 Oxygen Delivery Method Room Air Intake Visit Reasons: RA Flare/Start Leflunomide Intake Note: Patient last seen 01/25/24 by Pedro, presents today for follow up and test resul ts. Reports recent ED visit [facility], meds adjusted. Has f/u with pulm for SOB Youth Liaison Officer Required: Yes Youth Liaison Officer Language: Pulverizer Operator Name: Jamar [id number] Accompanied by: Self / Same As Patient Allergies No Known Allergies [No Known Allergies*] Allergy (Verified 04/25/24 09:09) HPI Comments Details: Ms. Fallon, 68 yoF Patient returns for follow-up of her rheumatoid arthritis. She continues to take her Orencia 125 mg q.week, Leflunomide 10mg, Prednisone 5mg QD. The injection given at last visit was somewhat helpful to the right shoulder but sometimes she still gets a lot of pain in the left. The right shoulder she still cannot lift without pain. She denies PT ever done. --since last visit hospitalized twice for chest pain dizziness - she is now wearing a heart monitor since yesterday 01/25/2024: Today Ms. Fallon is complaining of right shoulder pain and swelling to bilateral 1st and 2nd MCP joints. She has not sure when it started but she says she has been having a lot of pain recently since last visit in October 2023. She continues to take her Orencia 125 mg q.week. she is also due for her Prolia today. She would also like an injection to her right shoulder. Prior Visit 10/25/2023 Ms. Fallon, 68 yoF Patient returns for follow-up of her rheumatoid arthritis. We use the iPad translating service to obtain the history and facilitate the exam and treatment plan. She has difficulty hearing so often we had to have the physical instructor repeat the translations. She was last seen June 2023. She remains on Orencia 125 mg subcutaneously once a week, acetaminophen - two Arthritis Strength twice a day, gabapentin 600 mg 2-3 times a day, and 2.5 mg prednisone every other day. Prednisone is prescribed for the COPD/asthma that she has. She denies RA related stiffness and pain in her hands but reports discomfort to touch of her right hand due to overensitivity secondary to former stroke. There is also some low back pain but in general walking is limited more by her breathing than her joint pains. She reports occasional pain to her knees. She had a carpal tunnel and cubital tunnel release done back in March 2023. She does not think that helped much her hand symptoms. There still is numbness in both hands. There may be fewer hand paresthesias however. We started her on Prolia in January 2023 without apparent side effects. She had the 2/2 in July 2023 for osteoporosis. She has a history of a left shoulder replacement. That surgery apparently relieved her pain but she is left with not very good range of motion. And now the right shoulder has limited motion and quite a bit pain. She follows with Orthopedic who did the injection. PMH: asthma-COPD overlap syndrome, paroxysmal atrial fibrillation, diastolic heart failure, right hemiplegia as a residual deficit from old lacunar infarcts in 2016 and mild major depression [facility] Medical History (Updated 04/25/24 @ 09:39 by [facility]) History of cardiac monitoring Diastolic heart failure Rheumatoid arthritis flare Abdominal discomfort Left shoulder pain Right wrist pain Right shoulder pain Obesity (BMI 30-39.9) Preoperative clearance Abnormal chest x-ray Obesity Pneumonitis Breast pain, left Diastolic dysfunction Pre-op chest exam Osteoarthritis of shoulders, bilateral Asthma-COPD overlap syndrome Personal history of nicotine dependence History of CVA (cerebrovascular accident) (~2017) ILD (interstitial lung disease) Post-menopausal Hypoxia Seropositive rheumatoid arthritis Right hemiplegia (~2017) Chronic anticoagulation GERD (gastroesophageal reflux disease) Rheumatoid arthritis Obstructive sleep apnea on CPAP Essential hypertension Paroxysmal atrial fibrillation (~2017) Pure hypercholesterolemia Surgical History History of appendectomy History of foot surgery History of shoulder surgery Family History Father No problems noted. Mother No problems noted. Brother Stomach cancer Social History Household Members: None Housing: Apartment Do you presently have visiting nurse or other home services: Yes Alcohol intake: current Alcohol intake frequency: does not drink Alcohol type: beer Patient Tobacco Use Status: Former Tobacco user Tobacco use type: Cigarette Years Smoked: 20 years e-Cigarette/Vaping Use: Never Used Second Hand Smoke Exposure: No service: No Current occupational status: retired Cognitive needs: No Hearing needs: No Vision needs: No Review of Systems Const All systems reviewed & are unremarkable except as noted in HPI and below Physical Exam Vital Signs: Last Vital Signs Pulse 65 04/25/24 08:37 BP 142/62 H 04/25/24 08:37 Pulse Ox 96 04/25/24 08:37 Oxygen Delivery Method Room Air 04/25/24 08:37 BMI result Body Mass Index 32.1 APPEARANCE: Patient in no acute distress, groomed and appears nourished. EYES no redness, eyelids normal. No temporal artery tenderness, redness or swelling. LUNG: Distant breath sounds. I do not hear any rales or rhonchi. There are no expiratory wheezes. EXTREMITIES: No edema, no calf tenderness, normal peripheral pulses. JOINT EXAM: Hands: LEFT:? Normal pain-free range of motion with no more mild swelling over the 1st, 2nd, 3rd and 5th MCP joints. None of these are tender today. There is early swan necking deformity of the 2nd through 4th PIP joints but none are tender. There is a boutonniere deformity at the 5th PIP which is no longer slightly tender. There is some decreased sensation over the fingertips but no thenar atrophy. ? RIGHT:? no more mild swelling and tenderness of the 1st 3 MCP joints. There is swan-neck deformity at the 2nd and 3rd PIP is without tenderness. No thenar atrophy. There is some see decreased sensation over the fingertips.? Wrists:? Right: Today No more slight discomfort with flexion or extension at 75 degrees. No tenderness or swelling. Left: Normal pain-free range of motion without tenderness, swelling, increased warmth or erythema. Elbows: Normal pain-free range of motion without tenderness, swelling, increased warmth or erythema. Shoulders:? LEFT Limited range of motion, unable to abduct or extend greater than 45 degrees.? Slight tenderness over the AC joint.? Old scar from prior shoulder surgery in [place].? No erythema, swelling or increased warmth. ? RIGHT:? Mild to moderate pain with abduction at 90 degrees or with any attempted rotation. There is mild anterior, subacromial and posterior tenderness. There seems to be a large space between the acromion and the top of the humerus suggesting rotator cuff tear. No swelling, redness or warmth. Questionable abductor weakness but no adenopathy. Hips:? Full range of motion without pain. Hip bursa: No tenderness. Knees:? Mild patellofemoral crepitus but pain-free range of motion. There is no tenderness, effusion, redness or warmth. Ankles: Normal pain-free range of motion without tenderness, swelling, increased warmth or erythema. Feet:? Normal pain-free range of motion with mild 1st MTP bony enlargement. The area is not tender however. Other joints in the feet have no tenderness, swelling, increased warmth or erythema. Tender points:.? No tenderness to digital palpation at the occiput, trapezius, second rib, lateral epicondyle, knees, greater trochanter and gluteal area bilaterally. ? Assessment & Plan Assessment & Plan (1) Long-term use of immunosuppressant medication: Code(s): Z79.60 - retirement (current) use of unspecified immunomodulators and immunosuppressants Category: Medical (2) Osteoporosis: Comment: Prolia-1st dose 01/19/2023 Code(s): M81.0 - Age-related osteoporosis without current pathological fracture Category: Medical Qualifiers: Osteoporosis type: age-related Presence of current pathological fracture: without current pathological fracture Qualified Code(s): M81.0 - Age- related osteoporosis without current pathological fracture (3) Rheumatoid arthritis involving multiple sites with positive rheumatoid factor: Code(s): M05.79 - Rheumatoid arthritis with rheumatoid factor of multiple sites without organ or systems involvement (4) Bursitis of right shoulder: Code(s): M75.51 - Bursitis of right shoulder Category: Medical (5) History of cardiac monitoring: Code(s): Z92.89 - Personal history of other medical treatment Category: Medical Plan #RA/OA Shoulder bursitis: Mrs. Fallon is here for follow-up of Rheumatoid arthritis. She is doing well on the regimen. The swelling and tenderness to hand IP joints she had at January 2024 visit is resolved. With the addition of Leflunomide and Prednisone I think we are gaining better contraol of the RA. I will obtain updated labs to check if her ESR has trended down. Her breathing sound much better today also. As identified at last visit, her cardiac issues seem to be worsening based on review of cardiac visit notes. Today she is wearing a heart monitor. We will hold at this dose of LEF for now. She will continue with the Orencia 125 mg QW. LEF 10mg QD and Prednisone 5 mg QD. I will also prescribe her PT for her shoulders #Osteoporosis: Repeat DEXA scan January 2024 shows significant improvement in bone density. Lowest T-score -2.6 up from T-Score -3.8 on DEXA 10/2021. She received a Prolia January 2024, next Jul 2024 #Credit Risk Officer Use/Operations Research Group Manager: She is wearing ekg monitor tech today in the context of increased cardiac concerns. It is also important to note that the TNF-inhibitors can contribute t cardiac problems. I have reached out to her pole shaver and bring to attention if we should consider a different medication for her. Her CBC, liver and kidney studies are good to continue Orencia and leflunomide. She denies side effects of medications. Individuals with chronic obstructive pulmonary disease (COPD) should be monitored closely as Orencia has been noted to increase the risk of COPD exacerbation.?In spite of her COPD this does not seem to have caused her significant flare ups or recent pulmonary infections. I spent 35 minutes reviewing chart, evaluating patient and documenting Follow-up in 4 months Orders: Orders Erythrocyte Sedimentation Rate 4 Months M0. - Rheumatoid arthritis with rheumatoid factor of multiple sites without organ or systems involvement, Z79.60 - retirement (current) use of unspecified immunomodulators and immunosuppressants Comprehensive Met. Panel 4 Months M0. - Rheumatoid arthritis with rheumatoid factor of multiple sites without organ or systems involvement, Z79.60 - intermediate project manager (current) use of unspecified immunomodulators and immunosuppressants PT Evaluation and Treatment Today M19.011 - Primary osteoarthritis, right shou lder, M19.012 - Primary osteoarthritis, left shoulder, M75.51 - Bursitis of right shoulder Complete Blood Count Auto Diff 4 Months M0. - Rheumatoid arthritis with rheumatoid factor of multiple sites without organ or systems involvement, Z79.60 - retirement (current) use of unspecified immunomodulators and immunosuppressants C Reactive Protein 4 Months M0.79 - Rheumatoid arthritis with rheumatoid factor of multiple sites without organ or systems involvement, Z79.60 - retirement (current) use of unspecified immunomodulators and immunosuppressants Erythrocyte Sedimentation Rate Today M05.79 - Rheumatoid arthritis with rheumatoid factor of multiple sites without organ or systems involvement C Reactive Protein Today M05.79 - Rheumatoid arthritis with rheumatoid factor of multiple sites without organ or systems involvement Coding Level of Care Code Est Pt Level 4 (98707) Complex EM visit Add On G2211 Diagnoses Long-term use of immunosuppressant medication Z79.60 Age-related osteoporosis without current pathological fracture M81.0 Osteoporosis type: age-related Presence of current pathological fracture: without current pathological fracture Rheumatoid arthritis involving multiple sites with positive rheumatoid factor M05.79 Bursitis of right shoulder M75.51 History of cardiac monitoring Z92.89
== END 2024-04-25 09:30 | disposition home or self-care (01) ==
LOC: HO.RHE 08:34
PROVIDERS: PCP Internal Medicine; Visit Provider Nurse Practitioner Family
DX: Z79.60 Long term (current) use of unspecified immunomodulators and immunosuppressants (principal); M81.0 Age-related osteoporosis without current pathological fracture; M05.79 Rheumatoid arthritis with rheumatoid factor of multiple sites without organ or systems involvement; M75.51 Bursitis of right shoulder; Z92.89 Personal history of other medical treatment
CPT/HCPCS: 99214; G2211

== ENCOUNTER 2024-05-01 13:30 | Outpatient (AMB) | payer OTHER, SELFPAY ==
[2024-05-01 14:06] VITALS: BP 100/72; PULSE 85; BMI 32.4
--- NOTE | 2024-05-01 14:06 | A.OFFVIS_ITS ---
Vital Signs 05/01/24 14:06 Height 4 ft 11 in Weight 160 lb 7.944 oz BMI 32.4 BP 100/72 Blood Pressure Location Lt brachial Position Sitting Pulse 85 Pulse Source Pulse Oximeter Intake Visit Reasons: follow up and holter Basketball Assembler Required: Yes Basketball Assembler Language: Setswana Allergies No Known Allergies [No Known Allergies*] Allergy (Verified 05/01/24 14:08) Medication List - Last Reconciled 05/01/24 by LULU Roberts abatacept (Orencia ClickJect) 125 mg subcut WE acetaminophen ER 650 mg PO Q6-8H PRN atorvastatin 40 mg PO BEDTIME [cane As directed] cane As directed [Cock up splint Wear on right wrist at night. ] dofetilide 500 mcg PO Q12H dofetilide 500 mcg PO Q12H gabapentin 600 mg PO DAILY PRN leflunomide 10 mg PO DAILY losartan 100 mg PO DAILY metoprolol succinate ER 50 mg See Protocol PO BID omeprazole 20 mg PO DAILY prednisone 5 mg PO DAILY rivaroxaban (Xarelto) 20 mg PO DAILY sertraline 25 mg PO DAILY 90 days spironolactone 25 mg See Protocol PO DAILY 90 days HPI HPI follow up and holter: Details: Leeanne is a 69-year-old female with past medical history of hypertension, hyper lipidemia, obstructive sleep apnea with CPAP use, CVA with mild residual right- sided weakness, asthma/COPD overlap syndrome, diastolic heart failure, paroxysmal atrial flutter who was recently admitted to [facility] with symptomatic atrial flutter requiring Tikosyn load while inpatient. This helped to suppress her rhythm however following discharge he returned for ER evaluation day later with report of palpitations. Her EKG showed sinus rhythm. No med changes were made at that time. An outpatient Holter monitor planned. Today she reports that she is still noticing episodes of rapid heartbeats at times. She becomes fatigued and lightheaded with her episodes. She also tells me she ran out of metoprolol and Tikosyn 1 week ago. She says she made attempts at getting refills by calling her PCP office, pharmacy and this office. She denies any chest discomfort at rest or with activity. No concerning shortness of breath recently. No PND, orthopnea or edema. No presyncope, syncope, falls. She has been doing only light activities. She tells me she is traveling to [place] for 1 week and leaving on May 21. No bleeding issues reported. Taking all other meds as directed. [facility] Medical History History of cardiac monitoring Diastolic heart failure Rheumatoid arthritis flare Abdominal discomfort Left shoulder pain Right wrist pain Right shoulder pain Obesity (BMI 30-39.9) Preoperative clearance Abnormal chest x-ray Obesity Pneumonitis Breast pain, left Diastolic dysfunction Pre-op chest exam Osteoarthritis of shoulders, bilateral Asthma-COPD overlap syndrome Personal history of nicotine dependence History of CVA (cerebrovascular accident) (~2016) ILD (interstitial lung disease) Post-menopausal Hypoxia Seropositive rheumatoid arthritis Right hemiplegia (~2016) Chronic anticoagulation GERD (gastroesophageal reflux disease) Rheumatoid arthritis Obstructive sleep apnea on CPAP Essential hypertension Paroxysmal atrial fibrillation (~2016) Pure hypercholesterolemia Surgical History History of appendectomy History of foot surgery History of shoulder surgery Family History Father No problems noted. Mother No problems noted. Brother Stomach cancer Social History Household Members: None Housing: Apartment Do you presently have visiting nurse or other home services: Yes Alcohol intake: current Alcohol intake frequency: does not drink Alcohol type: beer Patient Tobacco Use Status: Former Tobacco user Tobacco use type: Cigarette Years Smoked: 20 years e-Cigarette/Vaping Use: Never Used Second Hand Smoke Exposure: No service: No Current occupational status: retired Cognitive needs: No Hearing needs: No Vision needs: No Review of Systems Const All systems reviewed & are unremarkable except as noted in HPI and below ENT Reports dizziness Card Details: palpitations Denies chest pain, Denies chest pain at rest, Denies chest pain with activity, Reports rapid heart rate, Denies pedal edema, Denies edema, Denies leg edema, Denies lightheadedness, Denies palpitations, Denies dyspnea, Denies dyspnea on exertion and Denies orthopnea Resp Denies cough, Denies dyspnea and Denies dyspnea on exertion GI Denies hematochezia and Denies change in stool character Musc Denies abnormal gait, Denies limited range of motion, Denies muscle cramps, Denies muscle weakness, Denies numbness, Denies radiating pain into limb, Denies stiffness and Denies tingling Neuro Denies abnormal gait, Reports dizziness, Denies numbness and Denies tingling Endo Denies palpitations Physical Exam Vital Signs: Last Vital Signs Pulse 85 05/01/24 14:06 BP 100/72 05/01/24 14:06 BMI result Body Mass Index 32.4 Const General: cooperative, healthy appearing, comfortable and no acute distress Orientation/consciousness: patient oriented x3 Neck Neck: Yes normal visual inspection and Yes no JVD Resp Effort & Inspection: normal respiratory effort Auscultation: clear to auscultation bilaterally, no crackles, no rales, no rhonchi and no wheezes Cardio Jugular venous distension: no JVD Rate: regular rate Rhythm: regular rhythm Heart sounds: S1 normal heart sound present, S2 normal heart sound present, no murmurs and no rubs Skin General skin exam: no rashes or lesions noted Neuro General: patient oriented x3 Extrem General: Yes normal to inspection and No no pedal edema Psych Appearance: grossly normal Mental Status: mental status grossly normal Speech and movement: Normal speech and movement present Office Procedures EKG Details: Today, read by me sinus rhythm with PAC, nonspecific T-wave abnormality aVL, rate 66, QTC 423 milliseconds [id number], Complete Assessment & Plan Assessment & Plan (1) Paroxysmal atrial flutter: Code(s): I48.92 - Unspecified atrial flutter Category: Medical Plan: History of paroxysmal atrial flutter with increasing episodes recently. On last office visit in January she was felt to be in persistent a flutter, symptomatic. Flecainide dose was increased and cardioversion planned. I do not see that cardioversion was done at that time for unclear reason however she did present to the emergency room on 03/21/2024 with symptom of chest and jaw discomfort. Her EKG showed atrial flutter with rapid ventricular response. She did undergo cardioversion while in the emergency room. She was admitted and noted to have recurrent paroxysmal atrial flutter. Her meds adjusted to help with rhythm control. She was started on Tikosyn while inpatient. She was discharged on Tikosyn 500 mg q.12 hours, metoprolol 50 mg b.i.d., Xarelto 20 mg daily. Outpatient Holter monitor was done on 04/24/2024 for 2 days shows sinus rhythm with average heart rate 77, supraventricular ectopy 2.4% of the time, a 38 minute of atrial tach versus atrial flutter, rate 175. Today she reports that she has been noticing intermittent racing heart, symptomatic. She reports that she ran out of Tikosyn and metoprolol 1 week ago. EKG done today is showing sinus rhythm with PAC, rate 66, QTC [address] Montoya. Will send refills for her medications today. Instructed to restart this evening. Will arrange for an office EKG in 4 days. Will refer to electrophysiology for evaluation for ablation. Reviewed this with her and she is agreeable with this plan. Instructed on avoidance of all stimulants. If she has tachycardia instructed to lay down and rest. Light physical activity preferred. Emergency care if needed for symptoms. Cardiology office visit 1 month, sooner if needed (2) Visit for monitoring Tikosyn therapy: Code(s): Z51.81 - Encounter for therapeutic drug level monitoring; Z79.899 - Other intermediate (current) drug therapy Category: Medical Plan: As above (3) Chronic anticoagulation: Code(s): Z79.01 - buttermaker continuous churn (current) use of anticoagulants Category: Medical Plan: On Xarelto for anticoagulation. No bleeding issues reported. (4) Essential hypertension: Code(s): I10 - Essential (primary) hypertension Category: Medical Plan: On low side today. Instructed on increasing fluid intake, it is currently 96 degrees outside. (5) Asthma-COPD overlap syndrome: Code(s): J44.9 - Chronic obstructive pulmonary disease, unspecified Category: Medical Plan: Stable at present (6) Hospital discharge follow-up: Code(s): Z09 - Encounter for follow-up examination after completed treatment for conditions other than malignant neoplasm Category: Medical Plan: As above Plan Time spent on chart review, documentation, interview and assessment Orders: Referrals Cardiac Electrophysiology Referral I48.92 - Unspecified atrial flutter Medications: New dofetilide 500 mcg PO Q12H 60 caps 4RF Refilled metoprolol succinate ER 50 mg See Protocol PO BID 60 tabs 5RF Coding Level of Care Code Est Pt Level 4 (62313) Diagnoses Paroxysmal atrial flutter I48.92 Visit for monitoring Tikosyn therapy Z51.81; Z79.899 Chronic anticoagulation Z79.01 Essential hypertension I10 Asthma-COPD overlap syndrome J44.9 Hospital discharge follow-up Z09 CPT Codes EKG - CPT: [id number], Complete ([id number]) Time Spent (min) 30
== END 2024-05-01 14:43 | disposition home or self-care (01) ==
PROVIDERS: PCP Internal Medicine; Visit Provider Nurse Practitioner Family
DX: I48.92 Unspecified atrial flutter (principal); I10 Essential (primary) hypertension; Z79.899 Other long term (current) drug therapy; Z79.01 Long term (current) use of anticoagulants; J44.9 Chronic obstructive pulmonary disease, unspecified; Z09 Encounter for follow-up examination after completed treatment for conditions other than malignant neoplasm; I49.1 Atrial premature depolarization
CPT/HCPCS: 93010; 99214

== ENCOUNTER → 2024-05-01 13:30 | Outpatient (BNVA) | payer OTHER, SELFPAY | PROVIDERS: PCP Internal Medicine; Visit Provider Nurse Practitioner Family | DX: I49.1 Atrial premature depolarization (principal); I48.92 Unspecified atrial flutter; I10 Essential (primary) hypertension; J44.9 Chronic obstructive pulmonary disease, unspecified; Z51.81 Encounter for therapeutic drug level monitoring; Z79.01 Long term (current) use of anticoagulants | CPT/HCPCS: 93005; 99212 ==

== ENCOUNTER → 2024-05-05 08:39 | Outpatient (BNVA) | payer OTHER, SELFPAY | PROVIDERS: PCP Internal Medicine; Visit Provider Nurse Practitioner Family ==

== ENCOUNTER 2024-05-07 09:24 | Outpatient (AMB) | payer OTHER, SELFPAY ==
[2024-05-07 09:27] VITALS: BP 118/60; PULSE 58; O2SAT 97; BMI 32.3
--- NOTE | 2024-05-07 09:27 | A.OFFVIS_ITS ---
Vital Signs 05/07/24 09:27 Height 4 ft 11 in Weight 160 lb BMI 32.3 BP 118/60 Blood Pressure Location Lt brachial Position Sitting Pulse 58 Pulse Source Pulse Oximeter Pulse Oximetry (%) 97 Oxygen Delivery Method Room Air Intake Visit Reasons: Asthma Project Landscape Architect Required: No Allergies No Known Allergies [No Known Allergies*] Allergy (Verified 05/07/24 09:30) HPI Comments Details: The patient is a 69-year-old woman with a known history of cardiovascular disease, RA with worsening respiratory symptoms. She was evaluated in the ER with evidence of airspace disease and pneumonitis. It was not clear if it was medication related. She does a history of rheumatoid arthritis and has been on immunomodulator therapy both with methotrexate and has been on TNF inhibitors. the patient was placed on a prednisone taper. She also required oxygen. She was discharged on oxygen. Today during the visit she is staying that she is feeling better and she is not using the oxygen. Therefore we did go for 6 minutes walk test in the patient did well her Peterson dyspnea score was 3/10 and she was able to maintain a pulse ox of 93-94% with activity. Therefore the patient does not require oxygen supplementation at this time. She also had a hard time with the oxygen via her CPAP. At this point she is going to sleep without it and when she comes back from her trip to [place] will go ahead and perform an overnight oximetry. I personally reviewed her chest x- rays. She had an x-ray today demonstrating interval improvement of the ground- glass opacities in the fluffy opacities suggesting improvement of the pneumonitis. Patient has been taking prednisone currently finishing up 30 mg in will be tapering down to 20. she has a trip planned to go to [place] when she will be there for Most of the month of May. Therefore, will have her continue on 10 mg of prednisone and will repeat her x-ray when she returns. In the meantime is not clear if this was a medication related issue but unfortunately methotrexate is also a potential culprit. I will request blood work. The patient be traveling to [place] and right now she really does need the oxygen unless her condition worsens again. 02/17/2022 the patient is having worsening shortness of breath. Mainly with activity. Moderate severity. She also has a nonproductive cough. Has not taking any medications for this. She is to have oxygen but then she was no longer using it. She also has a CPAP that has been very helpful for her. However she does need to have a repeat study to get reactivated with a [employer] company. She did have a sleep study ordered and she was called at home. However, is not clear why she did not follow through with sleep study. At this point though she is having worsening breathing symptoms. She continues on the methotrexate she is also on amiodarone. She did have a chest x-ray demonstra ting interval worsening of the airspace disease. I will request a CT scan of the chest at this time. Depending on the findings we have to re-evaluate her medications that potentially could result in pulmonary toxicity. during the office visit we did take it for a walking oximetry. The patient did not desaturate to the point of needing oxygen, but, she did decrease to the low 90s. During the ambulation she was found to have audible wheezing. Therefore she completed the 6 minute walk test and had a breathing treatment. She did feel better after the breathing treatment. We will start her on nebulized therapy at this time. 04/21/2022 the patient is here for a pulmonary follow-up visit. Overall the patient states that her breathing is better. She is having some difficulties tolerating the prednisone. In addition to that since stopping the methotrexate she has been having increasing joint pains. She is on Orencia now. She also was taken off the Amiodarone. The patient has not had any recent imaging studies. We need to follow-up with her pneumonitis. I am hopeful that it was stabilized. If she continues to have significant pneumonitis then consider a diagnostic intervention. 06/08/2022 the patient is here for a pulmonary follow-up visit. She continues to improve. She is less short of breath. She still getting some shortness of breath with activity however. The patient is not on any oxygen. She did not qualify during the last visit and she is doing well now. She did start the biologic therapy. She has been off the amiodarone and methotrexate. She continues to be on a small dose of prednisone. The patient is hoping to come off the prednisone due to her uncontrolled diabetes. She did have a chest x-ray that I personally reviewed. It appears as some of the upper lung zone reticular nodular opacities have improved. She still has some basilar changes. This could be vascular congestion versus interstitial lung disease. The patient will be weaned off the prednisone. However, if she develops any worsening symptoms then she is to call the office so we can re-evaluate. The patient will return in 2 months time to the point will repeat her CT scan to assess her interstitial lung disease and see if she needs additional prednisone. 08/11/2022 the patient is here for a pulmonary follow-up visit. Overall the patient has been doing relatively well. She has been off the amiodarone and also the methotrexate. She is also continued on a small dose of prednisone for her pneumonitis. Will go and repeat a chest x-ray to address her progress. Clinically the patient is doing well. Denies any worsening shortness of breath denies any cough. She is done with pain of her wrist and also the arm. It appears that she has some nerve entrapment will need surgery. A small pulmonary standpoint the patient is doing better and may able to proceed with surgery with anesthesia at this time. In the meantime will also maximize her respiratory therapy by starting her on maintenance inhalers the provided with best the capacity for her surgical intervention. 12/18/2022 the patient is here for a pulmonary follow-up visit. The patient overall is doing about same. Complains of dyspnea on exertion. She also has a dry cough. Explained to the patient that she does have underlying pulmonary fibrosis. At this time she is off the potential offending agents. Although her connective tissue disease could resulting interval progression of the interstitial lung disease. Based on her x-rays there is an appear to be any significant progression. She will undergo a chest x-ray today as well. She also did undergo a 6 minutes walk test and she did very well actually improving her pulse ox when ambulating. Please from a respiratory status the patient is doing well. She has not had her surgery yet. from a pulmonary standpoint the patient does have some increased risk for perioperative pulmonary complications but she has this time medically maximized from a pulmonary standpoint he may pursue surgery. 05/07/2024 the patient is here for a pulmonary follow-up visit. He has been awhile since we last saw her. She is doing fairly well. She did have her surgery at some point in still having issue with the hand however. The patient complains of dyspnea on exertion. [id number] severity. Specially when going up a flight of stairs or an incline. She does not have any inhalers at this time. We did talk about her cardiac history she has issues with tachyarrhythmias in atrial fibrillation. Therefore it has important not to give her anything does can have caused her to have significant cardiac interactions. She has been admitted to the hospital few times. She did have a chest x-ray which I personally reviewed demonstrating no evidence of any interstitial lung disease. She had interstitial lung disease in the past with pneumonitis likely secondary to medications. She has been a lot better since she has been off the amiodarone methotrexate. Therefore will hold off on any imaging studies at this time. The patient will start Incruse to try to improve her respiratory capacity. We did go for brief walking oximetry in her pulse ox was 96% throughout the walk which is reassuring. [facility] Medical History History of cardiac monitoring Diastolic heart failure Rheumatoid arthritis flare Abdominal discomfort Left shoulder pain Right wrist pain Right shoulder pain Obesity (BMI 30-39.9) Preoperative clearance Abnormal chest x-ray Obesity Pneumonitis Breast pain, left Diastolic dysfunction Pre-op chest exam Osteoarthritis of shoulders, bilateral Asthma-COPD overlap syndrome Personal history of nicotine dependence History of CVA (cerebrovascular accident) (~2017) ILD (interstitial lung disease) Post-menopausal Hypoxia Seropositive rheumatoid arthritis Right hemiplegia (~2017) Chronic anticoagulation GERD (gastroesophageal reflux disease) Rheumatoid arthritis Obstructive sleep apnea on CPAP Essential hypertension Paroxysmal atrial fibrillation (~2017) Pure hypercholesterolemia Surgical History History of appendectomy History of foot surgery History of shoulder surgery Family History Father No problems noted. Mother No problems noted. Brother Stomach cancer Social History Household Members: None Housing: Apartment Do you presently have visiting nurse or other home services: Yes Alcohol intake: current Alcohol intake frequency: does not drink Alcohol type: beer Patient Tobacco Use Status: Former Tobacco user Tobacco use type: Cigarette Years Smoked: 20 years e-Cigarette/Vaping Use: Never Used Second Hand Smoke Exposure: No service: No Current occupational status: retired Cognitive needs: No Hearing needs: No Vision needs: No Review of Systems Const Denies chills, Denies fatigue, Denies fever(s), Denies frequent falls, Denies weakness, Denies weight gain and Denies weight loss ENT Denies dizziness Card Denies chest pain, Denies leg edema, Denies lightheadedness, Denies palpitations, Reports dyspnea on exertion, Denies orthopnea and Denies other (loss of consciousness) Resp Reports cough and Reports dyspnea on exertion GI Denies hematochezia and Denies change in stool character Musc Denies abnormal gait, Reports myalgias, Reports arthralgias, Denies muscle weakness, Denies numbness, Denies radiating pain into limb and Denies tingling Neuro Denies abnormal gait, Denies dizziness, Denies frequent falls, Denies numbness, Denies tingling and Denies weakness Endo Denies fatigue and Denies palpitations Physical Exam Vital Signs: Last Vital Signs Pulse 58 05/07/24 09:27 BP 118/60 05/07/24 09:27 Pulse Ox 97 05/07/24 09:27 Oxygen Delivery Method Room Air 05/07/24 09:27 BMI result Body Mass Index 32.3 Const General: alert Neck Neck: Yes normal visual inspection, Yes full ROM and Yes no lymphadenopathy Chest Chest palpation & inspection: normal inspection of the chest Resp Auscultation: no wheezes and diminished lung sounds Cardio Rate: regular rate Rhythm: regular rhythm Heart sounds: S1 normal heart sound present and S2 normal heart sound present GI Palpation (GI): Soft to palpation and nontender Auscultation: normal bowel sounds General: Yes no CVA tenderness Back/Spine/Pelvis Back: no CVA tenderness Skin General skin exam: rashes and/or lesions noted Assessment & Plan Assessment & Plan (1) Asthma-COPD overlap syndrome: Code(s): J44.9 - Chronic obstructive pulmonary disease, unspecified Category: Medical Plan: Stable at present (2) Pneumonitis: Comment: Etiology is not clear. Possibly medication related. Although CTD related ILD is also possible. Code(s): J18.9 - Pneumonia, unspecified organism Category: Medical (3) Rheumatoid arthritis: Code(s): M06.9 - Rheumatoid arthritis, unspecified Category: Medical Qualifiers: Rheumatoid arthritis location: multiple sites Rheumatoid factor presence: with rheumatoid factor Qualified Code(s): M05.79 - Rheumatoid arthritis with rheumatoid factor of multiple sites without organ or systems involvement Plan start Incruse STEFANO as needed F/U 3-4 months Medications: New umeclidinium 62.5 mcg/actuation (Incruse Ellipta) 1 inh inhalation DAILY 30 ea 11RF 30 days J45.909 - Unspecified asthma, uncomplicated Coding Level of Care Code Est Pt Level 4 (60898) Diagnoses Asthma-COPD overlap syndrome J44.9 Pneumonitis J18.9 Rheumatoid arthritis involving multiple sites with positive rheumatoid factor M05.79 Rheumatoid arthritis location: multiple sites Rheumatoid factor presence: with rheumatoid factor Time Spent (min) 16
== END 2024-05-07 09:49 | disposition home or self-care (01) ==
PROVIDERS: PCP Internal Medicine; Visit Provider Hospitalist
DX: J44.9 Chronic obstructive pulmonary disease, unspecified (principal); J18.9 Pneumonia, unspecified organism; M05.79 Rheumatoid arthritis with rheumatoid factor of multiple sites without organ or systems involvement
CPT/HCPCS: 99214

== ENCOUNTER → 2024-05-07 09:24 | Outpatient (BNVA) | payer OTHER, SELFPAY | PROVIDERS: PCP Internal Medicine; Visit Provider Hospitalist | DX: J44.9 Chronic obstructive pulmonary disease, unspecified (principal); J18.9 Pneumonia, unspecified organism; R06.00 Dyspnea, unspecified | CPT/HCPCS: 99212 ==

== ENCOUNTER 2024-05-13 09:33 | Outpatient (REF) | payer OTHER, SELFPAY ==
--- NOTE | ~2024-05-13 | MM_ITS ---
EXAMINATION: MM SCREENING DIGITAL BREAST TOMOSYNTHESIS, BILATERAL CLINICAL INFORMATION: Screening. Asymptomatic. COMPARISON: Mammography: This study is compared with prior exams dating back to 2020. TECHNIQUE: Digital breast tomosynthesis is performed in both the craniocaudal and mediolateral oblique views along with computer-aided detection (CAD). Synthesized 2D images are generated from the tomosynthesis. FINDINGS: The breasts are almost entirely fatty (ACR BI-RADS breast composition Category a). There are no significant masses, abnormal calcifications, or other abnormalities. MM/MM tomosynthesis screening BI IMPRESSION: No mammographic evidence of malignancy. ASSESSMENT: BI-RADS BI-RADS 1 - Negative RECOMMENDATION: Routine annual mammography screening. 1 year F/U This examination should not preclude the clinical evaluation of a suspicious palpable abnormality. This patient's information was entered into a reminder system with a target due date for their next mammogram.
== END 2024-05-13 09:34 | disposition home or self-care (01) ==
LOC: HO.MAMMO 09:33
PROVIDERS: PCP Internal Medicine; Visit Provider Internal Medicine
DX: Z12.31 Encounter for screening mammogram for malignant neoplasm of breast (principal)
CPT/HCPCS: 77063; 77067

== ENCOUNTER → 2024-05-13 10:45 | Outpatient (BNV) | payer OTHER, SELFPAY | PROVIDERS: PCP Internal Medicine; Visit Provider Radiology Diagnostic Radiology | DX: Z12.31 Encounter for screening mammogram for malignant neoplasm of breast (principal) | CPT/HCPCS: 77063; 77067 ==

== ENCOUNTER 2024-06-17 08:45 | Outpatient (AMB) | payer OTHER, SELFPAY ==
[2024-06-17 08:55] VITALS: BP 100/62; PULSE 75; BMI 31.5
--- NOTE | 2024-06-17 08:55 | A.OFFVIS_ITS ---
Vital Signs 06/17/24 08:55 Height 4 ft 11 in Weight 156 lb 1.396 oz BMI 31.5 BP 100/62 Blood Pressure Location Lt brachial Position Sitting Pulse 75 Pulse Source Pulse Oximeter Intake Visit Reasons: 1m follow up Shift Production Supervisor Required: Yes Shift Production Supervisor Language: Concrete Stone Finisher Name: yolanda bolivar [id number] Allergies No Known Allergies [No Known Allergies*] Allergy (Verified 06/17/24 08:57) Medication List - Last Reconciled 06/17/24 by LULU Roberts acetaminophen ER 650 mg PO Q6-8H PRN atorvastatin 40 mg PO BEDTIME [cane As directed] cane As directed [Cock up splint Wear on right wrist at night. ] dofetilide 500 mcg PO Q12H gabapentin 600 mg PO DAILY PRN leflunomide TAKE 1 TABLET BY MOUTH EVERY DAY losartan 100 mg PO DAILY metoprolol succinate ER 50 mg See Protocol PO BID omeprazole 20 mg PO DAILY Orencia ClickJect (abatacept) 125 mg subcut QWEEK NS prednisone 5 mg PO DAILY rivaroxaban (Xarelto) 20 mg PO DAILY sertraline 25 mg PO DAILY 90 days spironolactone 25 mg See Protocol PO DAILY 90 days umeclidinium 62.5 mcg/actuation (Incruse Ellipta) 1 inh inhalation DAILY 30 days HPI HPI 1m follow up: Details: Leeanne is a 69-year-old female with past medical history of hypertension, hyperlipidemia, obstructive sleep apnea with CPAP use, CVA with mild residual right-sided weakness, asthma/COPD overlap syndrome, diastolic heart failure, paroxysmal atrial flutter who was recently admitted to [facility] with symptomatic atrial flutter requiring Tikosyn load while inpatient. On last visit she had run out medications including Tikosyn and was restarted. She was referred to EP for ablation. Today she reports that she has not received a call from the electrophysiology office. She says she has been taking her meds as directed. She denies having any recurrent heart palpitations. No chest discomfort at rest or with activity. No shortness of breath recently. No PND, orthopnea or edema. No presyncope, syncope, falls. She has been doing only light activities. No bleeding issues reported. Taking all meds as directed. [facility] Medical History History of cardiac monitoring Diastolic heart failure Rheumatoid arthritis flare Abdominal discomfort Left shoulder pain Right wrist pain Right shoulder pain Obesity (BMI 30-39.9) Preoperative clearance Abnormal chest x-ray Obesity Pneumonitis Breast pain, left Diastolic dysfunction Pre-op chest exam Osteoarthritis of shoulders, bilateral Asthma-COPD overlap syndrome Personal history of nicotine dependence History of CVA (cerebrovascular accident) (~2016) ILD (interstitial lung disease) Post-menopausal Hypoxia Seropositive rheumatoid arthritis Right hemiplegia (~2016) Chronic anticoagulation GERD (gastroesophageal reflux disease) Rheumatoid arthritis Obstructive sleep apnea on CPAP Essential hypertension Paroxysmal atrial fibrillation (~2016) Pure hypercholesterolemia Surgical History History of appendectomy History of foot surgery History of shoulder surgery Family History Father No problems noted. Mother No problems noted. Brother Stomach cancer Social History Household Members: None Housing: Apartment Do you presently have visiting nurse or other home services: Yes Alcohol intake: current Alcohol intake frequency: does not drink Alcohol type: beer Patient Tobacco Use Status: Former Tobacco user Tobacco use type: Cigarette Years Smoked: 20 years e-Cigarette/Vaping Use: Never Used Second Hand Smoke Exposure: No service: No Current occupational status: retired Cognitive needs: No Hearing needs: No Vision needs: No Review of Systems Const All systems reviewed & are unremarkable except as noted in HPI and below ENT Denies dizziness Card Denies chest pain, Denies chest pain at rest, Denies chest pain with activity, Denies rapid heart rate, Denies pedal edema, Denies edema, Denies leg edema, Denies lightheadedness, Denies palpitations, Denies dyspnea, Denies dyspnea on exertion and Denies orthopnea Resp Denies cough, Denies dyspnea and Denies dyspnea on exertion GI Denies hematochezia and Denies change in stool character Musc Denies abnormal gait, Denies limited range of motion, Denies muscle cramps, Denies muscle weakness, Denies numbness, Denies radiating pain into limb, Denies stiffness and Denies tingling Neuro Denies abnormal gait, Denies dizziness, Denies numbness and Denies tingling Endo Denies palpitations Physical Exam Vital Signs: Last Vital Signs Pulse 75 06/17/24 08:55 BP 100/62 06/17/24 08:55 BMI result Body Mass Index 31.5 Const General: cooperative, healthy appearing, comfortable and no acute distress Orientation/consciousness: patient oriented x3 Neck Neck: Yes normal visual inspection and Yes no JVD Resp Effort & Inspection: normal respiratory effort Auscultation: clear to auscultation bilaterally, no crackles, no rales, no rhonchi and no wheezes Cardio Jugular venous distension: no JVD Rate: regular rate Rhythm: regular rhythm Heart sounds: S1 normal heart sound present, S2 normal heart sound present, no murmurs and no rubs Skin General skin exam: no rashes or lesions noted Neuro General: patient oriented x3 Extrem General: Yes normal to inspection and No no pedal edema Psych Appearance: grossly normal Mental Status: mental status grossly normal Speech and movement: Normal speech and movement present Office Procedures EKG Details: Today, read by me, normal sinus rhythm, nonspecific ST abnormality, no significant changes from prior, QTC 477 milliseconds, rate 67 [id number], Complete Assessment & Plan Assessment & Plan (1) Paroxysmal atrial flutter: Code(s): I48.92 - Unspecified atrial flutter Category: Medical Plan: History of paroxysmal atrial flutter with increasing episodes recently. On last office visit in January she was felt to be in persistent a flutter, symptomatic. Flecainide dose was increased and cardioversion planned. I do not see that cardioversion was done at that time for unclear reason however she did present to the emergency room on 03/21/2024 with symptom of chest and jaw discomfort. Her EKG showed atrial flutter with rapid ventricular response. She did undergo cardioversion while in the emergency room. She was admitted and noted to have recurrent paroxysmal atrial flutter. Her meds adjusted to help with rhythm control. She was started on Tikosyn while inpatient. She was discharged on Tikosyn 500 mg q.12 hours, metoprolol 50 mg b.i.d., Xarelto 20 mg daily. Outpatient Holter monitor was done on 04/24/2024 for 2 days shows sinus rhythm with average heart rate 77, supraventricular ectopy 2.4% of the time, a 38 minute of atrial tach versus atrial flutter, rate 175. On last visit she reported she had ran out of Tikosyn and metoprolol for the last week. Her meds were restarted. A follow-up EKG showed sinus rhythm, rate 60. She was referred to electrophysiology to evaluate for ablation. Today she reports she has been doing well since last visit. She has been taking her meds as directed. She has not had recurrent heart palpitations. An EKG done today is showing sinus rhythm with nonspecific ST abnormality which has been seen on prior EKGs, rate 67, QTC 477 milliseconds. Will check with our fire controlman regarding EP appointment. Patient is agreeable to the plan for ablation. Will have her continue on current med management. Instructed on avoidance of all stimulants. If she has tachycardia instructed to lay down and rest. Light physical activity preferred. Emergency care if needed for symptoms. Cardiology office visit and EKG in 3 month, sooner if needed (2) Visit for monitoring Tikosyn therapy: Code(s): Z51.81 - Encounter for therapeutic drug level monitoring; Z79.899 - Other parts counterman (current) drug therapy Category: Medical Plan: As above (3) Chronic anticoagulation: Code(s): Z79.01 - technician terminal and repeater (current) use of anticoagulants Category: Medical Plan: On Xarelto for anticoagulation. No bleeding issues reported. (4) Essential hypertension: Code(s): I10 - Essential (primary) hypertension Category: Medical Plan: On low side today, asymptomatic. Reviewed good hydration. No med changes made. (5) Asthma-COPD overlap syndrome: Code(s): J44.9 - Chronic obstructive pulmonary disease, unspecified Category: Medical Plan: Stable at present Plan Time spent on chart review, documentation, interview and assessment Coding Level of Care Code Est Pt Level 4 (91584) Diagnoses Paroxysmal atrial flutter I48.92 Visit for monitoring Tikosyn therapy Z51.81; Z79.899 Chronic anticoagulation Z79.01 Essential hypertension I10 Asthma-COPD overlap syndrome J44.9 CPT Codes EKG - CPT: 37960-[id number], Complete ([id number]) Time Spent (min) 28
== END 2024-06-17 09:29 | disposition home or self-care (01) ==
PROVIDERS: PCP Internal Medicine; Visit Provider Nurse Practitioner Family
DX: I48.92 Unspecified atrial flutter (principal); Z51.81 Encounter for therapeutic drug level monitoring; Z79.899 Other long term (current) drug therapy; Z79.01 Long term (current) use of anticoagulants; I10 Essential (primary) hypertension; J44.9 Chronic obstructive pulmonary disease, unspecified
CPT/HCPCS: 93010; 99214

== ENCOUNTER → 2024-06-17 08:45 | Outpatient (BNVA) | payer OTHER, SELFPAY | PROVIDERS: PCP Internal Medicine; Visit Provider Nurse Practitioner Family | DX: I48.92 Unspecified atrial flutter (principal); I10 Essential (primary) hypertension; J44.9 Chronic obstructive pulmonary disease, unspecified; Z51.81 Encounter for therapeutic drug level monitoring; Z79.01 Long term (current) use of anticoagulants; Z79.899 Other long term (current) drug therapy | CPT/HCPCS: 93005; 99212 ==

== ENCOUNTER 2024-07-21 08:49 | Outpatient (AMB) | payer OTHER, SELFPAY ==
[2024-07-21 09:02] VITALS: BP 110/80; BMI 31.4
--- NOTE | 2024-07-21 09:02 | A.OFFPC_ITS ---
Vital Signs 07/21/24 09:02 Height 4 ft 11 in Weight 155 lb 8 oz BMI 31.4 BP 110/80 Blood Pressure Location Lt brachial Position Sitting Intake Visit Reasons: depression Intake Note: Patient here for a follow up depression,c/o trouble swallowing and abdominal discomfort and chest Health And Wellness Sales Consultant Required: No Accompanied by: Self / Same As Patient Allergies No Known Allergies [No Known Allergies*] Allergy (Verified 07/21/24 09:17) Medication List - Last Reconciled 07/21/24 by Dafne Pollard MD acetaminophen ER 650 mg PO Q6-8H PRN atorvastatin 40 mg PO BEDTIME [cane As directed] cane As directed [Cock up splint Wear on right wrist at night. ] dofetilide 500 mcg PO Q12H gabapentin 600 mg PO DAILY PRN leflunomide 10 mg PO DAILY losartan 100 mg PO DAILY metoprolol succinate ER 50 mg See Protocol PO BID omeprazole 20 mg PO DAILY Orencia ClickJect (abatacept) 125 mg subcut QWEEK NS prednisone 5 mg PO DAILY rivaroxaban (Xarelto) 20 mg PO DAILY sertraline 25 mg PO DAILY 90 days spironolactone 25 mg See Protocol PO DAILY 90 days umeclidinium 62.5 mcg/actuation (Incruse Ellipta) 1 inh inhalation DAILY 30 days Tobacco use date assessed: 01/17/24 Fall risk assessment: No Falls in past year Last assessed Fall Risk: 07/21/24 Dental Screening Dental Screen Date: 01/17/24 HPI HPI Comments History of Present Illness Details This is a 69-year-old female with paroxysmal atrial fibrillation, rheumatoid arthritis, mild recurrent major depression and asthma-COPD overlap syndrome that comes today for follow-up on her conditions. Atrial fibrillation is follow by cardiology has been stable. Rheumatoid arthritis has improved with medications and follow by Rheumatology. Depression stable with SSRIs. On long- acting inhaler for asthma-COPD overlap syndrome and use rescue inhaler less than once a month and follow by pulmonology. No chest pain or shortness on breath. Complains of difficulty swallowing solids and I will order a barium swallow. [facility] Medical History (Updated 07/21/24 @ 14:59 by Dafne Pollard MD) History of cardiac monitoring Diastolic heart failure Rheumatoid arthritis flare Abdominal discomfort Left shoulder pain Right wrist pain Right shoulder pain Obesity (BMI 30-39.9) Preoperative clearance Abnormal chest x-ray Obesity Pneumonitis Breast pain, left Diastolic dysfunction Pre-op chest exam Osteoarthritis of shoulders, bilateral Asthma-COPD overlap syndrome Personal history of nicotine dependence History of CVA (cerebrovascular accident) (~2016) ILD (interstitial lung disease) Post-menopausal Hypoxia Seropositive rheumatoid arthritis Right hemiplegia (~2017) Chronic anticoagulation GERD (gastroesophageal reflux disease) Rheumatoid arthritis Obstructive sleep apnea on CPAP Essential hypertension Paroxysmal atrial fibrillation (~2017) Pure hypercholesterolemia Surgical History History of appendectomy History of foot surgery History of shoulder surgery Family History Father No problems noted. Mother No problems noted. Brother Stomach cancer Social History Household Members: None Housing: Apartment Do you presently have visiting nurse or other home services: Yes Alcohol intake: current Alcohol intake frequency: does not drink Alcohol type: beer Patient Tobacco Use Status: Former Tobacco user Tobacco use type: Cigarette Years Smoked: 20 years e-Cigarette/Vaping Use: Never Used Second Hand Smoke Exposure: No service: No Current occupational status: retired Cognitive needs: No Hearing needs: No Vision needs: No Questionnaire PHQ-9 Over the last 2 weeks, how often have you been bothered by any of the following problems? 1. Little interest or pleasure in doing things: not at all 2. Feeling down, depressed, or hopeless: not at all 3. Trouble falling or staying asleep, or sleeping too much: several days 4. Feeling tired or having little energy: several days 5. Poor appetite or overeating: several days 6. Feeling bad about yourself - or that you are a failure or have let yourself or your family down: not at all 7. Trouble concentrating on things, such as reading the newspaper or watching television: not at all 8. Moving or speaking so slowly that other people could have noticed. Or the opposite - being so fidgety or restless that you have been moving around a lot more than usual: not at all 9. Thoughts that you would be better off or of hurting yourself in some way: not at all Total score: 3 Depression Screening Interpretation: Positive Depression Screening Follow-up: Existing condition, In treatment and Follow-up Visit Requested Depression Screening Done: Yes 50644 - PHQ-9 Billing: Yes Source: Developed by Drs. Kai Mejia, Neil Florian and colleagues, with an educational phil from [employer]. Thrive Questionnaire Date Thrive assessed: 03/23/24 GENNY-7 AMB Questionnaire GENNY-7 Date GENNY - 7 assessed: 07/21/24 Feeling nervous, anxious, or on edge: 1 = Several days Not being able to stop or control worryin = Not at all Worrying too much about different things: 1 = Several days Trouble relaxin = Not at all Being so restless that it is hard to sit still: 0 = Not at all Becoming easily annoyed or irritable: 3 = Nearly every day Feeling afraid as if something awful might happen: 1 = Several days Total GENNY-7 score (0-4 normal; 5-9 mild; 10-14 moderate; 15-21 severe): 6 Source: Developed by Drs. Kai Mejai, Jade Cheng, Neil Gannon and colleagues, with an educational phil from [employer]. GENNY-7 Assessment Billing GENNY-7 Assessment Tool: GENNY-7 Assessment 77399 Review of Systems Const All systems reviewed & are unremarkable except as noted in HPI and below ENT Reports dysphagia Card Denies chest pain at rest, Denies chest pain with activity, Denies edema, Denies irregular heart rhythm, Denies claudication, Denies dyspnea, Denies dyspnea on exertion, Denies orthopnea, Denies paroxysmal nocturnal dyspnea and Denies slow heart rate Resp Denies cough, Denies dyspnea and Denies dyspnea on exertion GI Denies abdominal pain, Denies change in bowel habits, Reports dysphagia, Denies excessive flatus, Denies nausea and Denies vomiting Denies urinary incontinence, Denies urinary hesitancy and Denies urinary urgency Musc Denies abnormal gait, Denies atrophy, Denies deformity and Denies limited range of motion Skin/Breast Denies bleeding lesions, Denies changing lesions and Denies rash Neuro Denies abnormal gait, Denies behavioral changes and Denies lack of coordination Psych Denies behavioral changes Physical exam (Primary Care) Vital Signs: Last Vital Signs BP 110/80 07/21/24 09:02 BMI result Body Mass Index 31.4 BMI Assessment/Plan discussion: High BMI High, discussed plan: lifestyle, weight reduction, dietary and physical activity Tobacco/Smoking Status: Tobacco use Status Tobacco use date assessed 01/17/24 07/21/24 09:06 Patient Tobacco Use Status Former Tobacco user 07/21/24 09:06 Tobacco use type Cigarette 07/21/24 09:06 e-Cigarette/Vaping Use Never Used 07/21/24 09:06 PHQ-9: PHQ-9 Score PHQ-9: Total score 3 07/21/24 09:21 Depression Screening Interpretation: Positive Depression Screening Follow-up: Existing condition, In treatment and Follow-up Visit Requested Thrive Assessment: Date of Thrive Assessment Date Thrive assessed 03/23/24 07/21/24 09:06 Resp Effort & Inspection: normal respiratory effort Auscultation: clear to auscultation bilaterally Cardio Jugular venous distension: no JVD Rate: regular rate Rhythm: regular rhythm Heart sounds: S1 normal heart sound present and S2 normal heart sound present Extrem General: Yes full ROM Assessment and Plan Assessment & Plan (1) Dysphagia: Code(s): R13.10 - Dysphagia, unspecified Plan: Barium swallow study ordered. (2) Mild recurrent major depression: Code(s): F33.0 - Major depressive disorder, recurrent, mild Plan: Continue SSRIs. (3) Asthma-COPD overlap syndrome: Code(s): J44.9 - Chronic obstructive pulmonary disease, unspecified Plan: Continue long-acting inhaler. Use rescue inhaler as needed. (4) Paroxysmal atrial fibrillation: Onset Date: ~2016 Comment: (Dx 08/2017) Code(s): I48.0 - Paroxysmal atrial fibrillation Plan: Continue chronic anticoagulation. Follow-up with Cardiology. The goal is heart rate control. (5) Rheumatoid arthritis: Code(s): M06.9 - Rheumatoid arthritis, unspecified Qualifiers: Rheumatoid arthritis location: multiple sites Rheumatoid factor presence: with rheumatoid factor Qualified Code(s): M05.79 - Rheumatoid arthritis with rheumatoid factor of multiple sites without organ or systems involvement Plan: Continue leflunomide. Follow-up with rheumatology. Orders: Orders [place] barium swallow modified Today R13.10 - Dysphagia, unspecified Referrals Gastroenterology Referral R13.10 - Dysphagia, unspecified Coding Level of Care Code Est Pt Level 4 (62192) Complex EM visit Add On G2211 Diagnoses Dysphagia R13.10 Mild recurrent major depression F33.0 Asthma-COPD overlap syndrome J44.9 Paroxysmal atrial fibrillation I48.0 Rheumatoid arthritis involving multiple sites with positive rheumatoid factor M05.79 Rheumatoid arthritis location: multiple sites Rheumatoid factor presence: with rheumatoid factor Additional Codes GENNY-7 Assessment Billing - GENNY-7 Assessment Tool: GENNY-7 Assessment 81885 ([id number]) Time Spent (min) 23
== END 2024-07-21 09:29 | disposition home or self-care (01) ==
PROVIDERS: PCP Internal Medicine; Visit Provider Internal Medicine
DX: J44.9 Chronic obstructive pulmonary disease, unspecified (principal); F33.0 Major depressive disorder, recurrent, mild; I48.0 Paroxysmal atrial fibrillation; M05.79 Rheumatoid arthritis with rheumatoid factor of multiple sites without organ or systems involvement; R13.10 Dysphagia, unspecified
CPT/HCPCS: 99214; G2211

== ENCOUNTER 2024-08-05 08:54 | Outpatient (AMB) | payer OTHER, SELFPAY ==
[2024-08-05 09:20] VITALS: BP 118/60; PULSE 73; O2SAT 98; BMI 31.6
--- NOTE | 2024-08-05 09:20 | A.OFFVIS_ITS ---
Vital Signs 08/05/24 09:20 Height 4 ft 11 in Weight 156 lb 8.451 oz BMI 31.6 BP 118/60 Blood Pressure Location Lt brachial Position Sitting Pulse 73 Pulse Source Pulse Oximeter Pulse Oximetry (%) 98 Oxygen Delivery Method Room Air Intake Visit Reasons: Asthma Business Risk Consultant Required: No Allergies No Known Allergies [No Known Allergies*] Allergy (Verified 08/05/24 09:23) HPI Comments Details: The patient is a 69-year-old woman with a known history of cardiovascular disease, RA with worsening respiratory symptoms. She was evaluated in the ER with evidence of airspace disease and pneumonitis. It was not clear if it was medication related. She does a history of rheumatoid arthritis and has been on immunomodulator therapy both with methotrexate and has been on TNF inhibitors. the patient was placed on a prednisone taper. She also required oxygen. She was discharged on oxygen. Today during the visit she is staying that she is feeling better and she is not using the oxygen. Therefore we did go for 6 minutes walk test in the patient did well her Peterson dyspnea score was 3/10 and she was able to maintain a pulse ox of 93-94% with activity. Therefore the patient does not require oxygen supplementation at this time. She also had a hard time with the oxygen via her CPAP. At this point she is going to sleep without it and when she comes back from her trip to [place] will go ahead and perform an overnight oximetry. I personally reviewed her chest x- rays. She had an x-ray today demonstrating interval improvement of the ground- glass opacities in the fluffy opacities suggesting improvement of the pneumonitis. Patient has been taking prednisone currently finishing up 30 mg in will be tapering down to 20. she has a trip planned to go to [place] when she will be there for Most of the month of May. Therefore, will have her continue on 10 mg of prednisone and will repeat her x-ray when she returns. In the meantime is not clear if this was a medication related issue but unfortunately methotrexate is also a potential culprit. I will request blood work. The patient be traveling to [place] and right now she really does need the oxygen unless her condition worsens again. 02/17/2022 the patient is having worsening shortness of breath. Mainly with activity. Moderate severity. She also has a nonproductive cough. Has not taking any medications for this. She is to have oxygen but then she was no longer using it. She also has a CPAP that has been very helpful for her. However she does need to have a repeat study to get reactivated with a [employer] company. She did have a sleep study ordered and she was called at home. However, is not clear why she did not follow through with sleep study. At this point though she is having worsening breathing symptoms. She continues on the methotrexate she is also on amiodarone. She did have a chest x-ray demonstrating interval worsening of the airspace disease. I will request a CT scan of the chest at this time. Depending on the findings we have to re- evaluate her medications that potentially could result in pulmonary toxicity. during the office visit we did take it for a walking oximetry. The patient did not desaturate to the point of needing oxygen, but, she did decrease to the low 90s. During the ambulation she was found to have audible wheezing. Therefore she completed the 6 minute walk test and had a breathing treatment. She did feel better after the breathing treatment. We will start her on nebulized therapy at this time. 04/21/2022 the patient is here for a pulmonary follow-up visit. Overall the patient states that her breathing is better. She is having some difficu lties tolerating the prednisone. In addition to that since stopping the methotrexate she has been having increasing joint pains. She is on Orencia now. She also was taken off the Amiodarone. The patient has not had any recent imaging studies. We need to follow-up with her pneumonitis. I am hopeful that it was stabilized. If she continues to have significant pneumonitis then consider a diagnostic intervention. 06/08/2022 the patient is here for a pulmonary follow-up visit. She continues to improve. She is less short of breath. She still getting some shortness of breath with activity however. The patient is not on any oxygen. She did not qualify during the last visit and she is doing well now. She did start the biologic therapy. She has been off the amiodarone and methotrexate. She continues to be on a small dose of prednisone. The patient is hoping to come off the prednisone due to her uncontrolled diabetes. She did have a chest x-ray that I personally reviewed. It appears as some of the upper lung zone reticular nodular opacities have improved. She still has some basilar changes. This could be vascular congestion versus interstitial lung disease. The patient will be weaned off the prednisone. However, if she develops any worsening symptoms then she is to call the office so we can re-evaluate. The patient will return in 2 months time to the point will repeat her CT scan to assess her interstitial lung disease and see if she needs additional prednisone. 08/11/2022 the patient is here for a pulmonary follow-up visit. Overall the patient has been doing relatively well. She has been off the amiodarone and also the methotrexate. She is also continued on a small dose of prednisone for her pneumonitis. Will go and repeat a chest x-ray to address her progress. Clinically the patient is doing well. Denies any worsening shortness of breath denies any cough. She is done with pain of her wrist and also the arm. It appears that she has some nerve entrapment will need surgery. A small pulmonary standpoint the patient is doing better and may able to proceed with surgery with anesthesia at this time. In the meantime will also maximize her respiratory therapy by starting her on maintenance inhalers the provided with best the capacity for her surgical intervention. 12/18/2022 the patient is here for a pulmonary follow-up visit. The patient overall is doing about same. Complains of dyspnea on exertion. She also has a dry cough. Explained to the patient that she does have underlying pulmonary fibrosis. At this time she is off the potential offending agents. Although her connective tissue disease could resulting interval progression of the interstitial lung disease. Based on her x-rays there is an appear to be any significant progression. She will undergo a chest x-ray today as well. She also did undergo a 6 minutes walk test and she did very well actually improving her pulse ox when ambulating. Please from a respiratory status the patient is doing well. She has not had her surgery yet. from a pulmonary standpoint the patient does have some increased risk for perioperative pulmonary complications but she has this time medically maximized from a pulmonary standpoint he may pursue surgery. 05/07/2024 the patient is here for a pulmonary follow-up visit. He has been awhile since we last saw her. She is doing fairly well. She did have her surgery at some point in still having issue with the hand however. The patient complains of dyspnea on exertion. [id number] severity. Specially when going up a flight of stairs or an incline. She does not have any inhalers at this time. We did talk about her cardiac history she has issues with tachyarrhythmias in atrial fibrillation. Therefore it has important not to give her anything does can have caused her to have significant cardiac interactions. She has been admitted to the hospital few times. She did have a chest [facility] I personally reviewed demonstrating no evidence of any interstitial lung disease. She had interstitial lung disease in the past with pneumonitis likely secondary to medications. She has been a lot better since she has been off the amiodarone methotrexate. Therefore will hold off on any imaging studies at this time. The patient will start Incruse to try to improve her respiratory capacity. We did go for brief walking oximetry in her pulse ox was 96% throughout the walk which is reassuring. 08/05/2024 the patient is here for a pulmonary follow-up visit. Overall doing well. She did not use the Incruse and uses she is concerned about tachyarrhythmias. She already has a history atrial fibrillation. She does feel palpitations when she uses them. I did try to encourage her that the Incruse will not give her any issues. Although, she really needs more rescue inhaler then a maintenance inhalers and she does not use it regularly. Therefore I will send her Atrovent HFA that she can use as needed comfortably that is not going to affect her heart. We also did talk about her underlying pulmonary issues. We did look at a CT scan that she had back in 2021 demonstrating evidence of interstitial lung disease with pneumonitis. She also has some degree of emphysema. The patient did subsequently have a chest x-ray back in 03/01/2024 demonstrating stable disease without any significant parenchymal disease that I can appreciate. Seems to be stable. Will plan to repeat the chest x-ray in the next 6 months or so. Otherwise will go ahead and send a rescue inhaler, CHRISTA. [facility] Medical History (Updated 07/21/24 @ 14:59 by Dafne Pollard MD) History of cardiac monitoring Diastolic heart failure Rheumatoid arthritis flare Abdominal discomfort Left shoulder pain Right wrist pain Right shoulder pain Obesity (BMI 30-39.9) Preoperative clearance Abnormal chest x-ray Obesity Pneumonitis Breast pain, left Diastolic dysfunction Pre-op chest exam Osteoarthritis of shoulders, bilateral Asthma-COPD overlap syndrome Personal history of nicotine dependence History of CVA (cerebrovascular accident) (~2017) ILD (interstitial lung disease) Post-menopausal Hypoxia Seropositive rheumatoid arthritis Right hemiplegia (~2017) Chronic anticoagulation GERD (gastroesophageal reflux disease) Rheumatoid arthritis Obstructive sleep apnea on CPAP Essential hypertension Paroxysmal atrial fibrillation (~2017) Pure hypercholesterolemia Surgical History History of appendectomy History of foot surgery History of shoulder surgery Family History Father No problems noted. Mother No problems noted. Brother Stomach cancer Social History Household Members: None Housing: Apartment Do you presently have visiting nurse or other home services: Yes Alcohol intake: current Alcohol intake frequency: does not drink Alcohol type: beer Patient Tobacco Use Status: Former Tobacco user Tobacco use type: Cigarette Years Smoked: 20 years e-Cigarette/Vaping Use: Never Used Second Hand Smoke Exposure: No service: No Current occupational status: retired Cognitive needs: No Hearing needs: No Vision needs: No Review of Systems Const Denies chills, Denies fatigue and Denies fever(s) ENT Denies dizziness Card Denies chest pain, Denies leg edema, Denies lightheadedness, Denies palpitations, Reports dyspnea on exertion, Denies orthopnea and Denies other (loss of consciousness) Resp Reports cough and Reports dyspnea on exertion GI Denies hematochezia and Denies change in stool character Musc Denies abnormal gait, Reports myalgias, Reports arthralgias, Denies muscle weakness, Denies numbness, Denies radiating pain into limb and Denies tingling Neuro Denies abnormal gait, Denies dizziness, Denies numbness and Denies tingling Endo Denies fatigue and Denies palpitations Physical Exam Vital Signs: Last Vital Signs Pulse 73 08/05/24 09:20 BP 118/60 08/05/24 09:20 Pulse Ox 98 08/05/24 09:20 Oxygen Delivery Method Room Air 08/05/24 09:20 BMI result Body Mass Index 31.6 Assessment & Plan Assessment & Plan (1) Asthma-COPD overlap syndrome: Code(s): J44.9 - Chronic obstructive pulmonary disease, unspecified Category: Medical Plan: Stable at present (2) Pneumonitis: Comment: Etiology is not clear. Possibly medication related. Although CTD related ILD is also possible. Code(s): J18.9 - Pneumonia, unspecified organism Category: Medical (3) Rheumatoid arthritis: Code(s): M06.9 - Rheumatoid arthritis, unspecified Category: Medical Qualifiers: Rheumatoid arthritis location: multiple sites Rheumatoid factor presence: with rheumatoid factor Qualified Code(s): M05.79 - Rheumatoid arthritis with rheumatoid factor of multiple sites without organ or systems involvement Plan stop Incruse start Atrovent HFA as needed CXR in 6 months F/U 6 months Orders: Orders XR chest 2V Today J44.9 - Chronic obstructive pulmonary disease, unspecified Medications: New ipratropium bromide 17 mcg/actuation (Atrovent HFA) 2 puffs inhalation Q8H 12.9 grams 11RF 30 days Coding Level of Care Code Est Pt Level 4 (12800) Diagnoses Asthma-COPD overlap syndrome J44.9 Pneumonitis J18.9 Rheumatoid arthritis involving multiple sites with positive rheumatoid factor M05.79 Rheumatoid arthritis location: multiple sites Rheumatoid factor presence: with rheumatoid factor Time Spent (min) 16
== END 2024-08-05 09:49 | disposition home or self-care (01) ==
PROVIDERS: PCP Internal Medicine; Visit Provider Hospitalist
DX: J44.9 Chronic obstructive pulmonary disease, unspecified (principal); J18.9 Pneumonia, unspecified organism; M05.79 Rheumatoid arthritis with rheumatoid factor of multiple sites without organ or systems involvement
CPT/HCPCS: 99214

== ENCOUNTER → 2024-08-05 08:54 | Outpatient (BNVA) | payer OTHER, SELFPAY | PROVIDERS: PCP Internal Medicine; Visit Provider Hospitalist | DX: J44.9 Chronic obstructive pulmonary disease, unspecified (principal); J18.9 Pneumonia, unspecified organism; M05.79 Rheumatoid arthritis with rheumatoid factor of multiple sites without organ or systems involvement | CPT/HCPCS: 99212 ==

== ENCOUNTER 2024-08-19 08:53 | Outpatient (REF) | payer OTHER, SELFPAY ==
[2024-08-19 09:25] LABS: MANUAL DIFF FLAG NO
[2024-08-19 09:45] LABS: Basophils Absolute Auto 0.1 X10*3/uL (0.0-0.2); Eosinophils Absolute Auto 0.2 X10*3/uL (0.0-0.4); Eosinophils Percent Auto 2.9 % (0-4); Hemoglobin 12.5 g/dl (12.0-16.0); Imm Gran Abs Auto 0.02 X10*3/uL (0.00-0.03); Imm Gran Pct Auto 0.3 % (0.0-0.4); Lymphocytes Absolute Auto 1.8 X10*3/uL (1.2-4.9); Lymphocytes Percent Auto 24.7 % (20-40); Mean Corpuscular HGB Conc 31.3 g/dl (31.0-35.0); Mean Corpuscular Hemoglobin 27.1 pg (27.0-33.0); Mean Corpuscular Volume 86.6 fL (80.0-98.0); Mean Platelet Volume 12.9 fL (9.4-12.3); Monocytes Absolute Auto 0.8 X10*3/uL (0.1-1.2); Monocytes Percent Auto 11.4 % (2-11); Neutrophils Absolute Auto 4.3 x10*3/uL (2.0-8.3); Neutrophils Percent Auto 59.7 % (45-73); Platelet Count 186 X10*3/uL (160-400); Red Blood Count 4.62 X10*6/uL (4.20-5.50); Red Cell Distribution Width 13.5 % (11.0-16.0); White Blood Count 7.1 X10*3/uL (4.8-10.8)
[2024-08-19 09:50] LABS: INTERNATIONAL NORM RATIO 1.1 (0.9-1.1); Prothrombin Time 12.5 SEC (10.9-12.4)
[2024-08-19 10:00] LABS: Anion Gap 13 (12-20); Blood Urea Nitrogen 13 mg/dL (9-16); Calcium 9.7 mg/dL (8.4-10.2); Carbon Dioxide 25 mmol/L (22-29); Chloride 110 mmol/L (96-108); Estimated Glomerular Filt Rate > 60; Glucose Random 86 mg/dL (60-115); Potassium 4.7 mmol/L (3.3-5.1); Sodium 143 mmol/L (135-145)
== END 2024-08-19 08:54 | disposition home or self-care (01) ==
LOC: HO.LAB 08:53
PROVIDERS: PCP Internal Medicine; Visit Provider Internal Medicine Cardiovascular Disease
DX: M05.79 Rheumatoid arthritis with rheumatoid factor of multiple sites without organ or systems involvement (principal); Z79.60 Long term (current) use of unspecified immunomodulators and immunosuppressants; I48.0 Paroxysmal atrial fibrillation
CPT/HCPCS: 36415; 80048; 85025; 85610

== ENCOUNTER 2024-08-29 10:38 | Outpatient (REF) | payer OTHER, SELFPAY ==
[2024-08-29 11:30] LABS: Basophils Absolute Auto 0.1 X10*3/uL (0.0-0.2); Basophils Percent Auto 0.7 % (0-2); Eosinophils Absolute Auto 0.2 X10*3/uL (0.0-0.4); Eosinophils Percent Auto 2.5 % (0-4); Hematocrit 41.1 % (37.0-47.0); Hemoglobin 12.7 g/dl (12.0-16.0); Imm Gran Abs Auto 0.04 X10*3/uL (0.00-0.03); Imm Gran Pct Auto 0.5 % (0.0-0.4); Lymphocytes Absolute Auto 1.3 X10*3/uL (1.2-4.9); Lymphocytes Percent Auto 16.2 % (20-40); Mean Corpuscular HGB Conc 30.9 g/dl (31.0-35.0); Mean Corpuscular Hemoglobin 27.2 pg (27.0-33.0); Mean Platelet Volume 13.2 fL (9.4-12.3); Monocytes Absolute Auto 0.5 X10*3/uL (0.1-1.2); Monocytes Percent Auto 5.8 % (2-11); Neutrophils Percent Auto 74.3 % (45-73); Platelet Count 193 X10*3/uL (160-400); Red Blood Count 4.67 X10*6/uL (4.20-5.50); Red Cell Distribution Width 13.7 % (11.0-16.0); White Blood Count 8.1 X10*3/uL (4.8-10.8)
[2024-08-29 12:03] LABS: Erythrocyte Sedimentation Rate 67 MM/HR (0-20)
[2024-08-29 12:21] LABS: Alanine Aminotransferase 17 U/L (0-31); Albumin Level 3.9 g/dL (3.5-5.0); Alkaline Phosphatase 67 U/L (39-117); Anion Gap 12 (12-20); Aspartate Amino Transferase 20 U/L (5-31); Bilirubin Total 0.3 mg/dL (0.0-1.0); Blood Urea Nitrogen 15 mg/dL (9-16); C Reactive Protein 0.46 mg/dL (< or = 0.50); Calcium 9.6 mg/dL (8.4-10.2); Carbon Dioxide 23 mmol/L (22-29); Chloride 111 mmol/L (96-108); Estimated Glomerular Filt Rate > 60; Glucose Random 126 mg/dL (60-115); Potassium 4.3 mmol/L (3.3-5.1); Sodium 142 mmol/L (135-145); Total Protein 7.5 g/dL (6.5-8.0)
[2024-09-04 16:15] LABS: Vitamin D 25-OH, D2 <4 ng/mL; Vitamin D 25-OH, D3 35 ng/mL; Vitamin D 25-OH, Total 35 ng/mL (30-100)
== END 2024-08-29 10:39 | disposition home or self-care (01) ==
LOC: HO.LAB 10:38
PROVIDERS: Absent Provider Nurse Practitioner Family; PCP Internal Medicine; Visit Provider Student in an Organized Health Care Education/Training Program
DX: M05.79 Rheumatoid arthritis with rheumatoid factor of multiple sites without organ or systems involvement (principal); E55.9 Vitamin D deficiency, unspecified; M81.0 Age-related osteoporosis without current pathological fracture; Z79.60 Long term (current) use of unspecified immunomodulators and immunosuppressants
CPT/HCPCS: 36415; 80053; 82306; 85025; 85652; 86140

== ENCOUNTER 2024-09-05 18:54 | Observation (INO) | payer OTHER, SELFPAY ==
[2024-09-05] VITALS (9 sets, daily range): BP systolic 93–141; BP diastolic 57–83; PULSE 65–190; RESP 16–24; TEMP 36.6–37.3; O2SAT 95–98; BMI 30.7
--- NOTE | 2024-09-05 | ECG_ITS ---
Test Reason : FAST HR Blood Pressure : / mmHG Vent. Rate : 182 BPM Atrial Rate : 000 BPM P-R Int : 000 ms QRS Dur : 070 ms QT Int : 236 ms P-R-T Axes : 000 027 165 degrees QTc Int : 410 ms Supraventricular tachycardia Marked ST abnormality, possible inferolateral subendocardial injury Abnormal ECG When compared with ECG of 11-APR-2024 08:11, Vent. rate has increased BY [address] now depressed in Inferior leads ST now depressed in Anterolateral leads T wave inversion now evident in Lateral leads Referred By: Generic ED Physician Electronically Signed By:Brian Pacheco
--- NOTE | 2024-09-05 18:59 | ED_ITS ---
HPI - General Adult General Chief complaint: Arrhythmia/Palpitations Stated complaint: FAST HR Time Seen by Provider: 09/05/24 18:59 History of Present Illness ED Provider: [place] CORTEZ narrative: The patient is a 69-year-old woman. She has a history of atrial fibrillation that was managed for a long time with flecainide. Ultimately she was referred to an autocad detailer to proposed an ablation procedure. She had the ablation procedure yesterday at [facility]. She was discharged from the hospital this morning. Not long after getting home from the hospital this morning she developed chest pressure while she was not doing anything in particular. After 10 minutes she contacted her daughter who called 911. Paramedics found the patient quite tachycardic and they brought her to the hospital. On arrival here heart rate was around 180-190. She was having chest pressure on arrival. No significant shortness of breath. No fever, sweats, chills. No cough or sputum. Related Data Home Medications ?Medication ?Instructions ?Recorded ?Confirmed atorvastatin 40 mg tablet 40 mg PO BEDTIME 03/21/24 09/05/24 prednisone 5 mg tablet 10 mg PO DAILY 03/21/24 09/05/24 nebulizers 08/05/24 abatacept 125 mg/mL subcutaneous 125 mg subcut WE 09/05/24 09/05/24 auto-injector (Orencia ClickJect) acetaminophen 650 mg 650 mg PO Q6H PRN for pain 09/05/24 09/05/24 tablet,extended release budesonide 0.5 mg/2 mL suspension 0.5 mg inhalation DAILY 09/05/24 09/05/24 for nebulization Previous Rx's ?Medication ?Instructions ?Recorded Cock up splint #1 ea 04/12/22 cane #1 ea 08/30/23 cane #1 ea 04/01/24 umeclidinium 62.5 mcg/actuation 1 inh inhalation DAILY 30 days #30 05/07/24 blister powder for inhalation ea (Incruse Ellipta) dofetilide 500 mcg capsule 500 mcg PO Q12H #60 caps 05/30/24 metoprolol succinate 50 mg 50 mg PO BID #60 tabs 05/30/24 tablet,extended release 24 hr rivaroxaban 20 mg tablet (Xarelto) 20 mg PO DAILY #90 tabs 06/22/24 spironolactone 25 mg tablet 25 mg PO DAILY 90 days #90 tabs 07/01/24 gabapentin 600 mg tablet 600 mg PO DAILY PRN Pain 30 days 07/28/24 #30 tabs sertraline 25 mg tablet 25 mg PO DAILY 90 days #90 tabs 08/04/24 ipratropium bromide 17 2 puff inhalation Q8H 30 days 08/05/24 mcg/actuation HFA aerosol inhaler #12.9 grams (Atrovent HFA) losartan 100 mg tablet 100 mg PO DAILY #90 tabs 08/20/24 leflunomide 10 mg tablet 10 mg PO DAILY #30 tabs 08/21/24 Allergies Allergy/AdvReac Type Severity Reaction Status Date / Time No Known Allergies Allergy Verified 09/05/24 19:13 [No Known Allergies*] Review of Systems 2 Review of Systems: Yes all other systems are reviewed and are negative [facility] Past Medical History Medical History History of cardiac monitoring Diastolic heart failure Rheumatoid arthritis flare Abdominal discomfort Left shoulder pain Right wrist pain Right shoulder pain Obesity (BMI 30-39.9) Preoperative clearance Abnormal chest x-ray Obesity Pneumonitis Breast pain, left Diastolic dysfunction Pre-op chest exam Osteoarthritis of shoulders, bilateral Asthma-COPD overlap syndrome Personal history of nicotine dependence History of CVA (cerebrovascular accident) (~2016) ILD (interstitial lung disease) Post-menopausal Hypoxia Seropositive rheumatoid arthritis Right hemiplegia (~2016) Chronic anticoagulation GERD (gastroesophageal reflux disease) Rheumatoid arthritis Obstructive sleep apnea on CPAP Essential hypertension Paroxysmal atrial fibrillation (~2016) Pure hypercholesterolemia Surgical History History of appendectomy History of foot surgery History of shoulder surgery Family History Family History Father No problems noted. Mother No problems noted. Brother Stomach cancer Social History Social History Household Members: None Housing: Apartment Do you presently have visiting nurse or other home services: No Alcohol intake: current Alcohol intake frequency: does not drink Alcohol type: beer Patient Tobacco Use Status: Former Tobacco user Tobacco use type: Cigarette Years Smoked: 20 years e-Cigarette/Vaping Use: Never Used Second Hand Smoke Exposure: No service: No Current occupational status: retired Cognitive needs: No Hearing needs: No Vision needs: No Physical Exam ED Vital Signs: Vital Signs - 24 hr 09/05/24 19:10 09/05/24 19:11 09/05/24 19:12 Temperature 99.1 F 98.8 F Pulse Rate 184 H 190 H 181 H Respiratory Rate 24 H 18 Blood Pressure 112/83 112/83 112/83 Pulse Oximetry 97 97 Oxygen Delivery Method Room Air Nasal Cannula Oxygen Flow Rate 2 09/05/24 19:13 09/05/24 20:00 Temperature Pulse Rate 95 81 Respiratory Rate 19 18 Blood Pressure 93/57 L 120/74 Pulse Oximetry 98 95 Oxygen Delivery Method Nasal Cannula Room Air Oxygen Flow Rate 2 BMI result Body Mass Index 30.7 Const Other: The patient was awake, alert, pleasant, cooperative. She looked mildly apprehensive but not in acute distress. HENMT Other: Face is symmetrical. Mucous membranes moist. Eyes Other: Pupils are round equal, conjunctivae clear, extraocular movements intact. Neck Other: No apparent JVD Resp Effort & Inspection: normal respiratory effort Auscultation: clear to auscultation bilaterally Cardio Other: The patient is initially very tachycardic. No definite murmur. Later she had a regular rate and rhythm with no definite murmur. GI Other: Abdomen is soft and nontender Skin Other: Skin was dry and unremarkable Neuro Other: The patient was awake and alert with a normal mental status. She is Italian- speaking and was interviewed with a magazine writer. Cranial nerves seem intact. She moves her extremities normally and seems grossly neurologically intact. Extrem Other: No significant peripheral edema Medications Administered Generic Name Dose Route Start Last Admin Trade Name Freq PRN Reason Stop Dose Admin Atorvastatin Calcium 40 mg 09/05/24 23:05 09/06/24 01:17 Atorvastatin Calcium 40 Mg Tablet PO 40 mg BEDTIME RIAZ Administration Melatonin 6 mg 09/05/24 21:53 09/06/24 01:17 Melatonin 3 Mg Tablet PO 6 mg BEDTIME PRN Administration Insomnia Metoprolol Succinate 50 mg 09/05/24 23:10 09/06/24 01:17 Metoprolol Succinate Er 50 Mg Tab.Er.24h PO 50 mg BID RIAZ Administration Protocol Sodium Chloride 3 ml 09/06/24 00:00 09/06/24 01:17 0.9 % Sodium Chloride Flush 3 Ml Syringe IVFLUSH 3 ml QSHIFT RIAZ Administration Discontinued Medications Generic Name Dose Route Start Last Admin Trade Name Keshav PRN Reason Stop Dose Admin Diltiazem HCl 20 mg 09/05/24 19:07 09/05/24 19:10 Diltiazem Hcl 50 Mg/10 Ml Vial IVPUSH 09/05/24 19:08 20 mg STAT STA Administration Medical Decision Making Medical Decision Making [facility] Narrative: The patient arrived with the 1st EKG that showed a narrow complex tachycardia at 182 beats per minute. This was quite a regular rhythm possibly consistent with SVT. The patient was given 20 mg of IV diltiazem for control of her tachydysrhythmia. Not long after receiving the IV diltiazem the patient seemed to be in a sinus rhythm. A repeat EKG was obtained that showed sinus rhythm at 91 beats per minute. Labs were done. The patient's troponin came back quite elevated at 12,000. I discussed the case with the on-call marketing sales representative who recommended that although the troponin elevation may be related to the ablation procedure it would be prudent to keep the patient in the hospital overnight for observation Lab Data 09/05/24 19:28 09/05/24 19:28 Labs: Lab Results 09/05/24 Range/Units 19:28 WBC 12.0 H (4.8-10.8) X10*3/uL RBC 4.00 L (4.20-5.50) X10*6/uL Hgb 10.8 L (12.0-16.0) g/dl Hct 34.3 L (37.0-47.0) % MCV 85.8 (80.0-98.0) fL MCH 27.0 (27.0-33.0) pg MCHC 31.5 (31.0-35.0) g/dl RDW 14.3 (11.0-16.0) % Plt Count 170 (160-400) X10*3/uL MPV 12.7 H (9.4-12.3) fL Immature Gran % (Auto) 0.5 H (0.0-0.4) % Neut % (Auto) 79.3 H (45-73) % Lymph % (Auto) 10.5 L (20-40) % Cross % (Auto) 9.0 (2-11) % Eos % (Auto) 0.3 (0-4) % Baso % (Auto) 0.4 (0-2) % Lymph # (Auto) 1.3 (1.2-4.9) X10*3/uL Cross # (Auto) 1.1 (0.1-1.2) X10*3/uL Eos # (Auto) 0.0 (0.0-0.4) X10*3/uL Baso # (Auto) 0.1 (0.0-0.2) X10*3/uL Abs Immat Gran (auto) 0.06 H (0.00-0.03) X10*3/uL Absolute Neuts (auto) 9.5 H (2.0-8.3) x10*3/uL Absolute Nucleated RBC 0.000 (0.0-0.012) X10*3/uL Nucleated RBC % (auto) 0.0 (0.0-0.2) /100WBC Sodium 139 (135-145) mmol/L Potassium 3.8 (3.3-5.1) mmol/L Chloride 109 H (96-108) mmol/L Carbon Dioxide 21 L (22-29) mmol/L Anion Gap 13 (12-20) BUN 26 H (9-16) mg/dL Creatinine 0.82 (0.5-1.4) mg/dL Estim Creat Clear Calc 60.9 Estimated GFR > 60 Random Glucose 133 H (60-115) mg/dL Calcium 8.8 D (8.4-10.2) mg/dL Magnesium 1.9 (1.6-2.6) mg/dL Total Bilirubin 0.5 (0.0-1.0) mg/dL AST 108 H (5-31) U/L ALT 22 (0-31) U/L Alkaline Phosphatase 62 (39-117) U/L Troponin I High Sens 16712.0 H* D (<3.5-17.0) ng/L B-Natriuretic Peptide 289 H (<100) pg/mL Total Protein 6.7 (6.5-8.0) g/dL Albumin 3.5 (3.5-5.0) g/dL Lipase 41 (8-78) U/L Critical Care Time Critical Care Time Critical Care Time: Yes Total Critical Care Time: 35 Attestation: The patient was critically ill with a high probability of imminent or life- threatening deterioration. ?I spent greater than 30 minutes of discontinuous time evaluating the patient, delivering critical care at the bedside, discussing evaluating data with consultants. ?Critical care time does not include time spent performing separately billable procedures or teaching. ?Time spent performing critical care with 35 minutes. Discharge Plan Discharge Clinical Impression: Chest pressure, Narrow complex tachycardia Patient Disposition: Admitted As Inpatient Interventions: Admission Worksheet (ED) Last Done: 09/05/24 23:37 Discharge Date/Time: 09/06/24 00:40
[2024-09-05] MEDS: dilTIAZem HCL 50 MG/10 ML VIAL 20 MG IVPUSH (19:10)
[2024-09-05 19:32] LABS: MANUAL DIFF FLAG NO
[2024-09-05 19:34] LABS: Basophils Absolute Auto 0.1 X10*3/uL (0.0-0.2); Basophils Percent Auto 0.4 % (0-2); Eosinophils Percent Auto 0.3 % (0-4); Hematocrit 34.3 % (37.0-47.0); Hemoglobin 10.8 g/dl (12.0-16.0); Imm Gran Abs Auto 0.06 X10*3/uL (0.00-0.03); Imm Gran Pct Auto 0.5 % (0.0-0.4); Lymphocytes Absolute Auto 1.3 X10*3/uL (1.2-4.9); Lymphocytes Percent Auto 10.5 % (20-40); Mean Corpuscular HGB Conc 31.5 g/dl (31.0-35.0); Mean Corpuscular Volume 85.8 fL (80.0-98.0); Mean Platelet Volume 12.7 fL (9.4-12.3); Monocytes Absolute Auto 1.1 X10*3/uL (0.1-1.2); Neutrophils Absolute Auto 9.5 x10*3/uL (2.0-8.3); Neutrophils Percent Auto 79.3 % (45-73); Platelet Count 170 X10*3/uL (160-400); Red Cell Distribution Width 14.3 % (11.0-16.0)
[2024-09-05 20:01] LABS: Alanine Aminotransferase 22 U/L (0-31); Albumin Level 3.5 g/dL (3.5-5.0); Alkaline Phosphatase 62 U/L (39-117); Anion Gap 13 (12-20); Aspartate Amino Transferase 108 U/L (5-31); Bilirubin Total 0.5 mg/dL (0.0-1.0); Blood Urea Nitrogen 26 mg/dL (9-16); Calcium 8.8 mg/dL (8.4-10.2); Carbon Dioxide 21 mmol/L (22-29); Chloride 109 mmol/L (96-108); Creatinine Clr Calc Pharmacy 60.9; Estimated Glomerular Filt Rate > 60; Glucose Random 133 mg/dL (60-115); Lipase 41 U/L (8-78); Magnesium 1.9 mg/dL (1.6-2.6); Potassium 3.8 mmol/L (3.3-5.1); Sodium 139 mmol/L (135-145); Total Protein 6.7 g/dL (6.5-8.0)
[2024-09-05 20:08] LABS: B Type Natriuretic Peptide 289 pg/mL (<100)
--- NOTE | 2024-09-05 21:55 | P.HPHOSP_ITS ---
History of Present Illness Date of Service: 09/05/24 Chief Complaint: Chest pressure This is a 69-year-old female with pertinent history of atrial fibrillation status post ablation on anticoagulation, interstitial lung disease, hypertension, mixed hyperlipidemia, mood disorder, LOW not on CPAP, COPD not on home oxygen, congestive heart failure with preserved EF, rheumatoid arthritis who presents to the emergency department for evaluation of chest pressure. Patient was discharged home on the day of presentation from outside facility where she was admitted for AFib with RVR. Patient underwent ablation on 09/04. She was resting at home and around 17:30 started having midsternal chest pressure. Denies palpitations or shortness of breath. The chest pressure was nonradiating and did not relieve with rest. No fever, chills, abdominal pain, nausea, vomiting, changes in urinary or bowel habits. History obtained with the help of certified court/medical interpreter. In the emergency department, patient was found to be in SVT and given IV diltiazem. Patient converted to normal sinus rhythm after IV diltiazem. Chest pressure relieved once patient was no longer in SVT. Troponin elevated at 12,649 and cardiology was consulted who requested admission for observation. Review of Systems 2 Constitutional: Constitutional: Reports no additional constitutional complaints Cardiovascular: Cardiovascular: Reports chest pain and Reports chest pain at rest Respiratory: Respiratory: Reports no additional respiratory complaints Gastrointestinal: Gastrointestinal: Reports no additional gastrointestinal complaints Genitourinary: Genitourinary: Reports no additional female genitourinary complaints [facility] Medical History History of cardiac monitoring Diastolic heart failure Rheumatoid arthritis flare Abdominal discomfort Left shoulder pain Right wrist pain Right shoulder pain Obesity (BMI 30-39.9) Preoperative clearance Abnormal chest x-ray Obesity Pneumonitis Breast pain, left Diastolic dysfunction Pre-op chest exam Osteoarthritis of shoulders, bilateral Asthma-COPD overlap syndrome Personal history of nicotine dependence History of CVA (cerebrovascular accident) (~2017) ILD (interstitial lung disease) Post-menopausal Hypoxia Seropositive rheumatoid arthritis Right hemiplegia (~2017) Chronic anticoagulation GERD (gastroesophageal reflux disease) Rheumatoid arthritis Obstructive sleep apnea on CPAP Essential hypertension Paroxysmal atrial fibrillation (~2017) Pure hypercholesterolemia Family History Father No problems noted. Mother No problems noted. Brother Stomach cancer Surgical History History of appendectomy History of foot surgery History of shoulder surgery Social History Household Members: None Housing: Apartment Do you presently have visiting nurse or other home services: Yes Alcohol intake: current Alcohol intake frequency: does not drink Alcohol type: beer Patient Tobacco Use Status: Former Tobacco user Tobacco use type: Cigarette Years Smoked: 20 years Smoked in Last 30 Days: No e-Cigarette/Vaping Use: Never Used Second Hand Smoke Exposure: No Advance Directives: No Advance Directives Information Provided: No Do you have a plan to hurt others: No Plan service: No Current occupational status: retired Cognitive needs: No Hearing needs: No Vision needs: No Meds Allergies Allergy/AdvReac Type Severity Reaction Status Date / Time No Known Allergies Allergy Verified 09/05/24 19:13 [No Known Allergies*] Home Medications ?Medication ?Instructions ?Recorded ?Confirmed ?Last Taken ?Type atorvastatin 40 mg tablet 40 mg PO BEDTIME 03/21/24 09/05/24 09/04/24 History prednisone 5 mg tablet 10 mg PO DAILY 03/21/24 09/05/24 09/05/24 History nebulizers 08/05/24 Unknown History abatacept 125 mg/mL subcutaneous 125 mg subcut WE 09/05/24 09/05/24 09/03/24 History auto-injector (Orencia ClickJect) acetaminophen 650 mg 650 mg PO Q6H PRN for pain 09/05/24 09/05/24 Unknown History tablet,extended release budesonide 0.5 mg/2 mL suspension 0.5 mg inhalation DAILY 09/05/24 09/05/24 09/05/24 History for nebulization Physical Exam 2 Vital Signs and Narrative: Vital Signs: Last Vital Signs Temp 98.8 F 09/05/24 19:12 Pulse 81 09/05/24 20:00 Resp 18 09/05/24 20:00 BP 120/74 09/05/24 20:00 Pulse Ox 95 09/05/24 20:00 O2 Del Method Room Air 09/05/24 20:00 O2 Flow Rate 2 09/05/24 19:13 BMI result Body Mass Index 30.7 Middle-aged female lying in bed in no distress Neck supple, no JVD Regular rate and rhythm, S1-S2 heard Regular breath sounds bilaterally, no wheezing or crackles appreciated Abdomen soft nontender, no guarding, no rigidity Patient is awake, alert and oriented to self, place, time and person ; no focal motor deficit Psych: Normal mood No pedal edema Results Labs 09/05/24 19:28 09/05/24 19:28 Labs: Laboratory Results - last 24 hr 09/05/24 19:28 MCV 85.8 MCH 27.0 MCHC 31.5 RDW 14.3 Plt Count 170 MPV 12.7 H Immature Gran % (Auto) 0.5 H Neut % (Auto) 79.3 H Lymph % (Auto) 10.5 L [place] % (Auto) 9.0 Eos % (Auto) 0.3 Baso % (Auto) 0.4 Lymph # (Auto) 1.3 [place] # (Auto) 1.1 Eos # (Auto) 0.0 Baso # (Auto) 0.1 Abs Immat Gran (auto) 0.06 H Absolute Neuts (auto) 9.5 H Absolute Nucleated RBC 0.000 Nucleated RBC % (auto) 0.0 Anion Gap 13 Estim Creat Clear Calc 60.9 Estimated GFR > 60 Random Glucose 133 H Calcium 8.8 D Magnesium 1.9 Total Bilirubin 0.5 AST 108 H ALT 22 Alkaline Phosphatase 62 Troponin I High Sens 15637.0 H* D B-Natriuretic Peptide 289 H Total Protein 6.7 Albumin 3.5 Lipase 41 Assessment and Plan (1) Chest pressure: Status: Acute (2) Elevated troponin: Status: Acute Plan This is a 69-year-old female with pertinent history of atrial fibrillation status post ablation on anticoagulation, interstitial lung disease, hypertension, mixed hyperlipidemia, mood disorder, LOW not on CPAP, COPD not on home oxygen, congestive heart failure with preserved EF, rheumatoid arthritis who presents to the emergency department for evaluation of chest pressure. #. Chest pressure: Likely in the setting of SVT. Resolution of symptoms after SVT broke with IV diltiazem in the ER. Will admit for observation with cardiac monitoring. #. Elevated troponin: Likely type 2 in the setting of recent ablation. Cardiology consulted from the ER who requested admission for observation. Repeat troponin in a.m. #. Congestive heart failure with preserved EF: No decompensation during admission. Patient is on spironolactone #. Atrial fibrillation status post ablation: On Xarelto, dofetilide and beta- [place] #. Hypertension: Continue home losartan and metoprolol #. Mixed hyperlipidemia: On statin #. LOW: Patient not on CPAP at home #. Mood disorder: Continue sertraline #. COPD: No exacerbation during admission. Continue home inhalers #. Interstitial lung disease: On chronic prednisone #. Leukocytosis, due to chronic steroid use. No sepsis #. Rheumatoid arthritis: On leflunomide Med rec pending DVT prophylaxis: Xarelto Full code. Discussed with patient at bedside Quality Stroke Does the patient have a stroke diagnosis?: No VTE Prior VTE?: No VTE Risk Level:: Medical - moderate - high VTE Device Contraindication: Treatment Not Indicated VTE Drug Contraindication: N/A - Med Ordered
--- NOTE | 2024-09-05 22:37 | PHA.MEDREC ---
Addendum entered by Jossy Mai RPh 09/05/24 22:45: CHECKED BY [facility] Original Note: Pharmacy Consult ? Medication Reconciliation Pharmacy has completed the medication reconciliation. 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 After speaking with the patient she states was just Dc'd from [facility] and there was a list with some medications but the patient was not able to answer what they were. She tried getting ahold of her daughter since her could help but she could not get ahold of her. She was able to confirm she does her Orencia ClickJect 125 mg/mL injection on Wednesdays and took it this past Sunday. She confirmed she took her medications today.
--- NOTE | 2024-09-06 | ECG_ITS ---
Test Reason : REDO Blood Pressure : / mmHG Vent. Rate : 091 BPM Atrial Rate : 091 BPM P-R Int : 208 ms QRS Dur : 072 ms QT Int : 362 ms P-R-T Axes : 044 021 067 degrees QTc Int : 445 ms Sinus rhythm with Premature supraventricular complexes Diffuse ST elevations-consider acute pericarditis Otherwise normal ECG When compared with ECG of 05-SEP-2024 18:52, Premature supraventricular complexes are now Present Vent. rate has decreased BY [address] elevation has replaced ST depression in Inferior leads ST elevation has replaced ST depression in Anterior leads Referred By: Brandi Knox Electronically Signed By:Brian Pacheco
[2024-09-06] MEDS: Atorvastatin Calcium 40 MG TABLET PO (01:17)
[2024-09-06] MEDS: Melatonin 3 MG TABLET 6 MG PO (01:17)
[2024-09-06] MEDS: 0.9 % Sodium Chloride Flush 3 ML SYRINGE IVFLUSH ×2 (01:17→08:40)
[2024-09-06] MEDS: Metoprolol Succinate ER 50 MG TAB.ER.24H PO ×2 (01:17→08:42)
[2024-09-06 01:27] VITALS: BP 122/64; PULSE 74; RESP 20; TEMP 36.8; O2SAT 98
[2024-09-06 01:29] VITALS: BMI 29.6
[2024-09-06 04:00] VITALS: BP 118/59; PULSE 72; RESP 16; TEMP 36.4; O2SAT 95
[2024-09-06 07:17] LABS: Basophils Absolute Auto 0.1 X10*3/uL (0.0-0.2); Basophils Percent Auto 0.5 % (0-2); Eosinophils Absolute Auto 0.1 X10*3/uL (0.0-0.4); Eosinophils Percent Auto 1.2 % (0-4); Hematocrit 34.2 % (37.0-47.0); Hemoglobin 10.8 g/dl (12.0-16.0); Imm Gran Abs Auto 0.04 X10*3/uL (0.00-0.03); Imm Gran Pct Auto 0.4 % (0.0-0.4); Lymphocytes Absolute Auto 1.8 X10*3/uL (1.2-4.9); Lymphocytes Percent Auto 19.1 % (20-40); MANUAL DIFF FLAG SCAN; Mean Corpuscular HGB Conc 31.6 g/dl (31.0-35.0); Mean Corpuscular Hemoglobin 27.3 pg (27.0-33.0); Mean Corpuscular Volume 86.6 fL (80.0-98.0); Monocytes Absolute Auto 0.9 X10*3/uL (0.1-1.2); Neutrophils Absolute Auto 6.7 x10*3/uL (2.0-8.3); Neutrophils Percent Auto 69.8 % (45-73); PLT CLUMP 1; Red Blood Count 3.95 X10*6/uL (4.20-5.50); Red Cell Distribution Width 14.4 % (11.0-16.0); SCAN SMEAR FLAG 1; White Blood Count 9.6 X10*3/uL (4.8-10.8)
[2024-09-06 07:29] LABS: Anion Gap 10 (12-20); Blood Urea Nitrogen 16 mg/dL (9-16); Carbon Dioxide 20 mmol/L (22-29); Chloride 114 mmol/L (96-108); Creatinine Clr Calc Pharmacy 81.9; Estimated Glomerular Filt Rate > 60; Glucose Random 81 mg/dL (60-115); Sodium 140 mmol/L (135-145)
[2024-09-06] MEDS: Tiotropium Bromide 2.5 mcg 1 PUFF/2.5 MCG MIST.INHAL 2 PUFF INHALE (07:30)
[2024-09-06] MEDS: Budesonide 0.5 MG/2 ML AMPUL.NEB INHALE (07:30)
[2024-09-06 07:32] VITALS: PULSE 62; RESP 16; O2SAT 97
[2024-09-06 07:38] LABS: Mean Platelet Volume 13.2 fL (9.4-12.3); Platelet Count 141 X10*3/uL (160-400)
[2024-09-06 07:39] LABS: SLIDE REVIEW VERIFIED
[2024-09-06 08:00] VITALS: BP 106/59; PULSE 64; RESP 18; TEMP 36.3
[2024-09-06 08:25] LABS: Troponin-I High Sensitivity 8401.5 ng/L (<3.5-17.0)
[2024-09-06] MEDS: Sertraline HCL 25 MG TABLET PO (08:41)
[2024-09-06] MEDS: Leflunomide 10 MG TABLET PO (08:42)
[2024-09-06] MEDS: Dofetilide 125 MCG CAPSULE 500 MCG PO (08:42)
[2024-09-06] MEDS: predniSONE 10 MG TABLET PO (08:42)
[2024-09-06] MEDS: Losartan Potassium 50 MG TABLET 100 MG PO (08:42)
[2024-09-06] MEDS: Spironolactone 25 MG TABLET PO (08:43)
[2024-09-06 12:00] VITALS: BP 99/53; PULSE 64; RESP 18; TEMP 36.1; O2SAT 99
--- NOTE | 2024-09-06 12:09 | P.CONCA_ITS ---
History of Present Illness History of Present Illness Date of Service: 09/06/24 Requesting physician: Brandi Knox Chief complaint: SVT, CP, Elevated troponins Narrative: 69-year-old female with history of paroxysmal atrial fibrillation who underwent ablation on September 04. She was discharged on SundaySeptember 05 and came in the ER in the evening with chest pain. She is describing a central pressure-like feeling and was noticed to be in SVT with heart rate 182 beats per minute. She had EKG changes of subendocardial injury. Her high sensitive troponin level was 12,000. She spontaneously broke out of the SVT and symptoms completely improved after that. She has not had any further discomfort in her chest or breathing issues. I had a discussion with Dr. Newton who performed the ablation. He felt that the troponin elevation was explained by ablation because they are using pulse field ablation at this point. This morning the patient is feeling fine. She has walked with her walker and has no symptoms. Blood pressure is well controlled. No further episodes of arrhythmia. [facility] Past Medical History Medical History History of cardiac monitoring Diastolic heart failure Rheumatoid arthritis flare Abdominal discomfort Left shoulder pain Right wrist pain Right shoulder pain Obesity (BMI 30-39.9) Preoperative clearance Abnormal chest x-ray Obesity Pneumonitis Breast pain, left Diastolic dysfunction Pre-op chest exam Osteoarthritis of shoulders, bilateral Asthma-COPD overlap syndrome Personal history of nicotine dependence History of CVA (cerebrovascular accident) (~2017) ILD (interstitial lung disease) Post-menopausal Hypoxia Seropositive rheumatoid arthritis Right hemiplegia (~2017) Chronic anticoagulation GERD (gastroesophageal reflux disease) Rheumatoid arthritis Obstructive sleep apnea on CPAP Essential hypertension Paroxysmal atrial fibrillation (~2017) Pure hypercholesterolemia Family History Family History Father No problems noted. Mother No problems noted. Brother Stomach cancer Surgical History Surgical History History of appendectomy History of foot surgery History of shoulder surgery Social History Social History Household Members: None Housing: Apartment Do you presently have visiting nurse or other home services: No Alcohol intake: current Alcohol intake frequency: does not drink Alcohol type: beer Patient Tobacco Use Status: Former Tobacco user Tobacco use type: Cigarette Years Smoked: 20 years e-Cigarette/Vaping Use: Never Used Second Hand Smoke Exposure: No service: No Current occupational status: retired Cognitive needs: No Hearing needs: No Vision needs: No Meds Allergies Allergy/AdvReac Type Severity Reaction Status Date / Time No Known Allergies Allergy Verified 09/05/24 19:13 [No Known Allergies*] Active Medications: Current Medications Acetaminophen (Acetaminophen 325 Mg Tablet) 650 mg PO Q6H PRN PRN Reason: Pain, Mild (Pain Scale 1-3), fever or headache Atorvastatin Calcium (Atorvastatin Calcium 40 Mg Tablet) 40 mg PO BEDTIME [facility] Last Admin: 09/06/24 01:17 Dose: 40 mg Budesonide (Budesonide 0.5 Mg/2 Ml Ampul.Neb) 0.5 mg INHALE RDAILY [facility] Last Admin: 09/06/24 07:30 Dose: 0.5 mg Calcium Carbonate (Calcium Carbonate 750 Mg Tab.Chew) 750 mg PO Q4H PRN PRN Reason: Heartburn Dofetilide (Dofetilide 125 Mcg Capsule) 500 mcg PO BID [facility] Last Admin: 09/06/24 08:42 Dose: 500 mcg Ipratropium [place] (Ipratropium [place] 1 Puff/17 Mcg Inhaler) 2 puff INHALE Q8H PRN PRN Reason: Shortness of Breath/Wheezing Leflunomide (Leflunomide 10 Mg Tablet) 10 mg PO DAILY [facility] Last Admin: 09/06/24 08:42 Dose: 10 mg Losartan Potassium (Losartan Potassium 50 Mg Tablet) 100 mg PO DAILY [facility]; Protocol Last Admin: 09/06/24 08:42 Dose: 100 mg Magnesium Hydroxide (Milk Of Magnesia 30 Ml Oral.Susp) 30 ml PO DAILY PRN PRN Reason: Constipation Melatonin (Melatonin 3 Mg Tablet) 6 mg PO BEDTIME PRN PRN Reason: Insomnia Last Admin: 09/06/24 01:17 Dose: 6 mg Metoprolol Succinate (Metoprolol Succinate Er 50 Mg Tab.Er.24h) 50 mg PO BID [facility]; Protocol Last Admin: 09/06/24 08:42 Dose: 50 mg Ondansetron HCl (Ondansetron Hcl 4 Mg/2 Ml Vial) 4 mg IVPUSH Q8H PRN PRN Reason: Nausea and Vomiting Prednisone (Prednisone 10 Mg Tablet) 10 mg PO DAILY [facility] Last Admin: 09/06/24 08:42 Dose: 10 mg Rivaroxaban (Rivaroxaban 20 Mg Tablet) 20 mg PO DAILY@1700 RIAZ Sertraline HCl (Sertraline Hcl 25 Mg Tablet) 25 mg PO DAILY [facility] Last Admin: 09/06/24 08:41 Dose: 25 mg Sodium Chloride (0.9 % Sodium Chloride Flush 3 Ml Syringe) 3 ml IVFLUSH QSHIFT [facility] Last Admin: 09/06/24 08:40 Dose: 3 ml Spironolactone (Spironolactone 25 Mg Tablet) 25 mg PO DAILY [facility]; Protocol Last Admin: 09/06/24 08:43 Dose: 25 mg Tiotropium [place] (Tiotropium [place] 2.5 Mcg 1 Puff/2.5 Mcg Mist.Inhal) 2 puff INHALE RDAILY [facility] Last Admin: 09/06/24 07:30 Dose: 2 puff Home Medications ?Medication ?Instructions ?Recorded ?Confirmed ?Last Taken ?Type atorvastatin 40 mg tablet 40 mg PO BEDTIME 03/21/24 09/05/24 09/04/24 History prednisone 5 mg tablet 10 mg PO DAILY 03/21/24 09/05/24 09/05/24 History nebulizers 08/05/24 Unknown History abatacept 125 mg/mL subcutaneous 125 mg subcut WE 09/05/24 09/05/24 09/03/24 History auto-injector (Orencia ClickJect) acetaminophen 650 mg 650 mg PO Q6H PRN for pain 09/05/24 09/05/24 Unknown History tablet,extended release budesonide 0.5 mg/2 mL suspension 0.5 mg inhalation DAILY 09/05/24 09/05/24 09/05/24 History for nebulization Physical Exam 2 Vital Signs: Vital Signs: Last Vital Signs Temp 97.4 F 09/06/24 08:00 Pulse 64 09/06/24 08:00 Resp 18 09/06/24 08:00 BP 106/59 L 09/06/24 08:00 Pulse Ox 95 09/06/24 04:00 O2 Del Method Room Air 09/06/24 08:00 O2 Flow Rate 2 09/05/24 19:13 BMI result Body Mass Index 29.6 GENERAL APPEARANCE: in no acute distress, pleasant. NECK: no carotid bruit, no jugular venous distention. SKIN: no suspicious lesions, warm and dry. HEART: no murmurs, regular rate and rhythm. LUNGS: clear to auscultation bilaterally. ABDOMEN: soft, nontender. EXTREMITIES: no edema. PERIPHERAL PULSES: equal. NEUROLOGIC: No gross deficits, AAO X 3 Objective Labs and Meds 09/06/24 06:55 09/06/24 06:55 Lab results: Laboratory Results - last 24 hr 09/05/24 09/06/24 19:28 06:55 WBC 12.0 H 9.6 RBC 4.00 L 3.95 L Hgb 10.8 L 10.8 L Hct 34.3 L 34.2 L MCV 85.8 86.6 MCH 27.0 27.3 MCHC 31.5 31.6 RDW 14.3 14.4 Plt Count 170 141 L MPV 12.7 H 13.2 H Immature Gran % (Auto) 0.5 H 0.4 Neut % (Auto) 79.3 H 69.8 Lymph % (Auto) 10.5 L 19.1 L [place] % (Auto) 9.0 9.0 Eos % (Auto) 0.3 1.2 Baso % (Auto) 0.4 0.5 Lymph # (Auto) 1.3 1.8 [place] # (Auto) 1.1 0.9 Eos # (Auto) 0.0 0.1 Baso # (Auto) 0.1 0.1 Abs Immat Gran (auto) 0.06 H 0.04 H Absolute Neuts (auto) 9.5 H 6.7 Absolute Nucleated RBC 0.000 0.000 Nucleated RBC % (auto) 0.0 0.0 Smear Tech's Comments VERIFIED Sodium 139 140 Potassium 3.8 4.0 Chloride 109 H 114 H Carbon Dioxide 21 L 20 L Anion Gap 13 10 L BUN 26 H 16 Creatinine 0.82 0.60 Estim Creat Clear Calc 60.9 81.9 Estimated GFR > 60 > 60 Random Glucose 133 H 81 Calcium 8.8 D 9.0 Magnesium 1.9 Total Bilirubin 0.5 AST 108 H ALT 22 Alkaline Phosphatase 62 Troponin I High Sens 37919.0 H* D 8401.5 H* B-Natriuretic Peptide 289 H Total Protein 6.7 Albumin 3.5 Lipase 41 Assessment and Plan (1) Elevated troponin: Status: Acute (2) Narrow complex tachycardia: Status: Acute (3) Chest pressure: Status: Acute Plan [age] year female presenting 1 day after atrial fibrillation ablation with supraventricular tachycardia and significantly elevated troponin levels of more than 12,000. She had chest discomfort while she was in the SVT and chest pain improved after she broke out of SVT and has no further symptoms since then. She has walked with a walker and we will ambulate the hallways to make sure she does not have any recurrent symptoms. High sensitive troponin level is trending down. With pulse field ablation there is significant elevation of troponin more than cryoablation. Clinically it appears that the troponin elevation coincides with the recent procedure and SVT may have played some role in elevation and troponin 2. In any case she has no symptoms she has she broke out of SVT. She will continue same medicines currently. We will arrange follow-up in our office. She can go home. Thank you for allowing me to participate in the care of your patient. Please feel free to contact me if you have any questions. Procedures Date of Service Date of Service: 09/06/24
--- NOTE | 2024-09-06 12:52 | PM.DS ---
DS: Providers Provider Date of Service: 09/06/24 Date of admission: 09/05/24 21:53 Primary care physician: Dafne Pollard MD Consults: 09/05/24 21:53 Consult to Cardiology Routine Consulting Provider: [facility] [place] [facility] [place] [facility] Reason for consultation: eleavted troponin Has provider been notified: Yes DS: Diagnosis Discharge Diagnosis (1) Elevated troponin: Status: Acute (2) Narrow complex tachycardia: Status: Acute (3) Chest pressure: Status: Acute DS: Summary Hospital Course Hospital Course: HP as per admitting provider. This is a 69-year-old female with pertinent history of atrial fibrillation status post ablation on anticoagulation, interstitial lung disease, hypertension, mixed hyperlipidemia, mood disorder, LOW not on CPAP, COPD not on home oxygen, congestive heart failure with preserved EF, rheumatoid arthritis who presents to the emergency department for evaluation of chest pressure. Patient was discharged home on the day of presentation from outside facility where she was admitted for AFib with RVR. Patient underwent ablation on 09/04. She was resting at home and around 17:30 started having midsternal chest pressure. Denies palpitations or shortness of breath. The chest pressure was nonradiating and did not relieve with rest. No fever, chills, abdominal pain, nausea, vomiting, changes in urinary or bowel habits. History obtained with the help of maker up folding. In the emergency department, patient was found to be in SVT and given IV diltiazem. Patient converted to normal sinus rhythm after IV diltiazem. Chest pressure relieved once patient was no longer in SVT. Troponin elevated at 12,649 and cardiology was consulted who requested admission for observation. #. Chest pressure: Likely in the setting of SVT. Resolution of symptoms after SVT broke with IV diltiazem in the ER. Also had ablation 09/05/24 so also contributed. #. Elevated troponin: Likely type 2 in the setting of recent ablation. #. Congestive heart failure with preserved EF: No decompensation during admission. Patient is on spironolactone #. Atrial fibrillation status post ablation: On Xarelto, dofetilide and beta-d[place] #. Hypertension: Continue home losartan and metoprolol #. Mixed hyperlipidemia: On statin #. LOW: Patient not on CPAP at home #. Mood disorder: Continue sertraline #. COPD: No exacerbation during admission. Continue home inhalers #. Interstitial lung disease: On chronic prednisone #. Leukocytosis, due to chronic steroid use. No sepsis #. Rheumatoid arthritis: On leflunomide Time Attestation Discharge Coordination Time (in mins): 40 Quality: Safe Use of Opioids Does Pt have an Active Cancer Diagnosis on the Problem List?: No Quality: Stroke Does the patient have a stroke diagnosis?: No Physical Exam Vital Signs: Vital Signs: Last Vital Signs Temp 97.0 F 09/06/24 12:00 Pulse 64 09/06/24 12:00 Resp 18 09/06/24 12:00 BP 99/53 L 09/06/24 12:00 Pulse Ox 99 09/06/24 12:00 O2 Del Method Room Air 09/06/24 12:00 O2 Flow Rate 2 09/05/24 19:13 BMI result Body Mass Index 29.6 Appearing in no acute distress head is normocephalic atraumatic eyes pupils are PERRLA sclera is anicteric mouth throat mucous membranes are intact and moist neck is supple no lymphadenopathy, no JVD noted lung sounds are clear to auscultation heart regular rate rhythm, clear S1, S2 positive bowel sounds, abdomen is soft, nontender neuro patient is alert x3, no focal deficits DS: Data Data Completed and Pending Completed studies during hospitalization [Text1]: Procedures Assistance with Respiratory Ventilation, Less than 24 Consecutive Hours, Continuous Positive Airway Pressure (04/15/21) Restorationist of Cardiac Rhythm, Single (03/21/24) Labs on day of discharge: Laboratory Results - last 24 hr 09/05/24 09/06/24 19:28 06:55 WBC 12.0 H 9.6 RBC 4.00 L 3.95 L Hgb 10.8 L 10.8 L Hct 34.3 L 34.2 L MCV 85.8 86.6 MCH 27.0 27.3 MCHC 31.5 31.6 RDW 14.3 14.4 Plt Count 170 141 L MPV 12.7 H 13.2 H Immature Gran % (Auto) 0.5 H 0.4 Neut % (Auto) 79.3 H 69.8 Lymph % (Auto) 10.5 L 19.1 L [place] % (Auto) 9.0 9.0 Eos % (Auto) 0.3 1.2 Baso % (Auto) 0.4 0.5 Lymph # (Auto) 1.3 1.8 [place] # (Auto) 1.1 0.9 Eos # (Auto) 0.0 0.1 Baso # (Auto) 0.1 0.1 Abs Immat Gran (auto) 0.06 H 0.04 H Absolute Neuts (auto) 9.5 H 6.7 Absolute Nucleated RBC 0.000 0.000 Nucleated RBC % (auto) 0.0 0.0 Smear Tech's Comments VERIFIED Sodium 139 140 Potassium 3.8 4.0 Chloride 109 H 114 H Carbon Dioxide 21 L 20 L Anion Gap 13 10 L BUN 26 H 16 Creatinine 0.82 0.60 Estim Creat Clear Calc 60.9 81.9 Estimated GFR > 60 > 60 Random Glucose 133 H 81 Calcium 8.8 D 9.0 Magnesium 1.9 Total Bilirubin 0.5 AST 108 H ALT 22 Alkaline Phosphatase 62 Troponin I High Sens 96737.0 H* D 8401.5 H* B-Natriuretic Peptide 289 H Total Protein 6.7 Albumin 3.5 Lipase 41 Discharge Plan Discharge Anticipated Discharge Date/Time: 09/06/24 12:02 Patient Disposition: Home, Self-Care Discharge Diagnosis: Chest pain elevated troponin Referrals: Dafne Betancourt MD [Primary Care Provider] - 1 Week Discharge Medications: Continued (DME) Cock up splint See Rx Instructions .Route .MEDSUPPLY Qty: 1 0RF Rx Instructions: Wear on right wrist at night. (DME) cane See Rx Instructions .Route .MEDSUPPLY Qty: 1 0RF Rx Instructions: As directed (DME) cane Device See Rx Instructions .Route Qty: 1 0RF Rx Instructions: As directed dofetilide 500 mcg capsule 500 mcg PO Q12H Qty: 60 4RF metoprolol succinate 50 mg tablet extended release 24 hr 50 mg PO BID Qty: 60 5RF Protocol: Hold for SBP/HR < HOLD for SBP < : 90 HOLD for HR < : 60 Xarelto 20 mg tablet 20 mg PO DAILY Qty: 90 2RF spironolactone 25 mg tablet 25 mg PO DAILY 90 Days Qty: 90 0RF Protocol: Hold for SBP< HOLD for SBP < : 90 gabapentin 600 mg tablet 600 mg PO DAILY PRN (Reason: Pain) 30 Days Qty: 30 1RF sertraline 25 mg tablet 25 mg PO DAILY 90 Days Qty: 90 0RF losartan 100 mg tablet 100 mg PO DAILY Qty: 90 1RF leflunomide 10 mg tablet 10 mg PO DAILY Qty: 30 0RF atorvastatin 40 mg tablet 40 mg PO BEDTIME prednisone 5 mg tablet 10 mg PO DAILY budesonide 0.5 mg/2 mL suspension for nebulization 0.5 mg inhalation DAILY acetaminophen 650 mg tablet extended release 650 mg PO Q6H PRN (Reason: for pain) Orencia ClickJect 125 mg/mL auto-injector 125 mg subcut WE Incruse Ellipta 62.5 mcg/actuation blister with device 1 inh inhalation DAILY 30 Days Qty: 30 11RF (DME) nebulizers Misc See Rx Instructions .ROUTE Rx Instructions: As directed Atrovent HFA 17 mcg/actuation HFA aerosol inhaler 2 puff inhalation Q8H 30 Days Qty: 12.9 11RF Discharge Orders: Discharge Order (Routine); Ordered 09/06/24 Ordered By: Brandi Knox Diet: Advance to usual diet Activity on Discharge: As tolerated Stand Alone Forms: Patient Portal Discharge page Print Language: Grenadian Care Plan Goals: chest pain likely related to recent ablation elevated troponins are related to recent ablation Health Concerns: Chest pain elevated troponin Plan of Treatment: Follow-up with primary care provider as needed Take all medications as prescribed Assessment: See discharge summary
--- NOTE | 2024-09-07 13:47 | MHC.CM.PN ---
PT LIVES ALONE AND HAS DAILY [employer] SERVICES PT USES A ROLLATOR AND A CPAP COPY OF HCP REQUESTED PCP: LINWOOD URIAS PT DISCHARGED HOME YESTERDAY WITH NO NEW SERVICES [facility]IA [facility]
== END 2024-09-06 14:18 | disposition home or self-care (01) ==
LOC: HO.ED 21:50 → HO.EDOVER 22:25 → HO.IMC 23:25
PROVIDERS: Admitting Provider Student in an Organized Health Care Education/Training Program; Emergency Provider Emergency Medicine; PCP Internal Medicine; Visit Provider Nurse Practitioner Acute Care
DX: R07.9 Chest pain, unspecified (principal); I47.19 Other supraventricular tachycardia; R79.89 Other specified abnormal findings of blood chemistry; I48.91 Unspecified atrial fibrillation; E78.2 Mixed hyperlipidemia; F39 Unspecified mood [affective] disorder; G47.33 Obstructive sleep apnea (adult) (pediatric); I11.0 Hypertensive heart disease with heart failure; I50.30 Unspecified diastolic (congestive) heart failure; M06.9 Rheumatoid arthritis, unspecified; J44.9 Chronic obstructive pulmonary disease, unspecified; Z79.01 Long term (current) use of anticoagulants; Z79.899 Other long term (current) drug therapy
CPT/HCPCS: 36415; 80048; 80053; 83690; 83735; 83880; 84484; 85025; 93005; 94640; 96374; 99222; 99285

== ENCOUNTER 2024-09-05 21:53 | Outpatient (BNV) | payer OTHER, SELFPAY | END 2024-09-06 | PROVIDERS: Admitting Provider Student in an Organized Health Care Education/Training Program; Emergency Provider Emergency Medicine; PCP Internal Medicine; Visit Provider Internal Medicine Cardiovascular Disease | DX: I47.10 Supraventricular tachycardia, unspecified (principal) | CPT/HCPCS: 93010 ==

== ENCOUNTER → 2024-09-05 21:53 | Outpatient (BNV) | payer OTHER, SELFPAY | PROVIDERS: Admitting Provider Student in an Organized Health Care Education/Training Program; Emergency Provider Emergency Medicine; PCP Internal Medicine; Visit Provider Internal Medicine Cardiovascular Disease | DX: I47.10 Supraventricular tachycardia, unspecified (principal) | CPT/HCPCS: 93010; 99223 ==

== ENCOUNTER → 2024-09-05 21:53 | Outpatient (BNV) | payer OTHER, SELFPAY | PROVIDERS: Admitting Provider Student in an Organized Health Care Education/Training Program; Emergency Provider Emergency Medicine; PCP Internal Medicine; Visit Provider Student in an Organized Health Care Education/Training Program | DX: R79.89 Other specified abnormal findings of blood chemistry (principal); I47.19 Other supraventricular tachycardia; R07.89 Other chest pain | CPT/HCPCS: 99223; 99239 ==

== ENCOUNTER 2024-09-09 08:57 | Outpatient (AMB) | payer OTHER, SELFPAY ==
--- NOTE | 2024-09-09 09:28 | MHC.OFFVIS ---
Vital Signs 09/09/24 09:36 Height 4 ft 11 in Weight 154 lb 8.705 oz BMI 31.2 BP 92/58 L Blood Pressure Location Rt brachial Position Sitting Pulse 56 Pulse Source Pulse Oximeter Pulse Oximetry (%) 96 Oxygen Delivery Method Room Air Intake Visit Reasons: RA follow up & osteoporosis prolia inj Intake Note: Patient presents for RA/Osteoporosis and Prolia injection. Basic Sciences Professor Required: Yes Basic Sciences Professor Language: Sql Report Writer Services: Basic Sciences Professor Present Basic Sciences Professor Name: August [id number] Information Interpreted: non-clinical & clinical Allergies No Known Allergies [No Known Allergies*] Allergy (Verified 09/09/24 09:35) Medication List - Last Reconciled 09/09/24 by Rell Perez MD abatacept (Orencia ClickJect) 125 mg subcut WE acetaminophen ER 650 mg PO Q6H PRN atorvastatin 40 mg PO BEDTIME budesonide 0.5 mg inhalation DAILY [cane As directed] cane As directed [Cock up splint Wear on right wrist at night. ] dofetilide 500 mcg PO Q12H gabapentin 600 mg PO DAILY PRN 30 days ipratropium bromide 17 mcg/actuation (Atrovent HFA) 2 puffs inhalation Q8H 30 days leflunomide 10 mg PO DAILY losartan 100 mg PO DAILY metoprolol succinate ER 50 mg See Protocol PO BID nebulizers As directed prednisone 10 mg PO DAILY rivaroxaban (Xarelto) 20 mg PO DAILY sertraline 25 mg PO DAILY 90 days spironolactone 25 mg See Protocol PO DAILY 90 days umeclidinium 62.5 mcg/actuation (Incruse Ellipta) 1 inh inhalation DAILY 30 days HPI Comments Details: This is a 69-year-old female with rheumatoid arthritis who presents for follow-up. She remains on Orencia 125 mg subcutaneously weekly and leflunomide 10 mg daily. Patient had ablation procedure for her AFib a few days ago and then presented to the hospital with chest heaviness, troponins were significantly elevated. It was attributed to post ablation pericarditis. She was discharged home. She states that her joints feel about the same overall. She states that she gets some swelling in her knees 1 or 2 days before her Orencia injection. [facility] Medical History (Updated 09/09/24 @ 10:24 by Rell Perez MD) History of cardiac monitoring Diastolic heart failure Rheumatoid arthritis flare Abdominal discomfort Left shoulder pain Right wrist pain Right shoulder pain Obesity (BMI 30-39.9) Preoperative clearance Abnormal chest x-ray Obesity Pneumonitis Breast pain, left Diastolic dysfunction Pre-op chest exam Osteoarthritis of shoulders, bilateral Asthma-COPD overlap syndrome Personal history of nicotine dependence History of CVA (cerebrovascular accident) (~2016) ILD (interstitial lung disease) Post-menopausal Hypoxia Seropositive rheumatoid arthritis Right hemiplegia (~2017) Chronic anticoagulation GERD (gastroesophageal reflux disease) Rheumatoid arthritis Obstructive sleep apnea on CPAP Essential hypertension Paroxysmal atrial fibrillation (~2017) Pure hypercholesterolemia Surgical History History of appendectomy History of foot surgery History of shoulder surgery Family History Father No problems noted. Mother No problems noted. Brother Stomach cancer Social History Household Members: None Housing: Apartment Do you presently have visiting nurse or other home services: No Alcohol intake: current Alcohol intake frequency: does not drink Alcohol type: beer Patient Tobacco Use Status: Former Tobacco user Tobacco use type: Cigarette Years Smoked: 20 years e-Cigarette/Vaping Use: Never Used Second Hand Smoke Exposure: No service: No Current occupational status: retired Cognitive needs: No Hearing needs: No Vision needs: No Review of Systems Musc Reports arthralgias, Reports joint swelling and Reports limited range of motion Physical Exam Vital Signs: Last Vital Signs Pulse 56 09/09/24 09:36 BP 92/58 L 09/09/24 09:36 Pulse Ox 96 09/09/24 09:36 Oxygen Delivery Method Room Air 09/09/24 09:36 BMI result Body Mass Index 31.2 Const General: cooperative, healthy appearing and comfortable Nutritional Appearance: obese Orientation/consciousness: patient oriented x3 Limitations: no limitations HEENT Head: Yes normocephalic and Yes atraumatic Mouth: moist mucous membranes Resp Effort & Inspection: normal respiratory effort and able to speak in complete sentences Auscultation: clear to auscultation bilaterally Neuro General: patient oriented x3 Extrem Other: RA deformities of both hands with multiple swan-neck deformities, also signs of hands osteoarthritis with prominent Heberden's nodes Significantly limited range of motion of both shoulders No knee warmth or swelling bilaterally No knee pain with flexion-extension bilaterally Office Meds Prolia 60 mg/mL subcutaneous syringe Performing Provider: Rell Perez MD Performing Location: [facility] Rheumatology Administered by: Rell Perez MD on 09/09/24 10:25 Dose Route Admin Location Dispensed Lot Number Expiration Date NDC Photographer Model 60 mg subcut 1 mL [id number] 01/09/26 54902-112-59 AMGEN Assessment & Plan Assessment & Plan (1) Rheumatoid arthritis: Comment: ++RF +++CCP On Humira from February 2019 to March 2021-discontinued due to congestive heart failure. Orencia started April 2021- present Methotrexate 2018- February 2022 discontinued due to interstitial lung disease Leflunomide added 01/2024 Code(s): M06.9 - Rheumatoid arthritis, unspecified Category: Medical Qualifiers: Rheumatoid arthritis location: multiple sites Rheumatoid factor presence: with rheumatoid factor Qualified Code(s): M05.79 - Rheumatoid arthritis with rheumatoid factor of multiple sites without organ or systems involvement Plan: This is a 69 year old female with seropositive deforming RA who presents for follow-up. Doing well on leflunomide 10 mg daily and Orencia 125 mg subcutaneously weekly. I do not see any active synovitis on exam. Continue current meds Labs before next visit in 3 months (2) Long-term use of immunosuppressant medication: Code(s): Z79.60 - watermelon inspector (current) use of unspecified immunomodulators and immunosuppressants Category: Medical Plan: Side effects of Orencia were discussed with the patient in detail including increased risk of infection, demyelinating disease, reactivation of latent TB, possible increased risk of solid and skin tumors. Patient fully aware. Advised patient to seek medical care [facility] if patient has an infection and advised patient to stop the medication until the infection is resolved. (3) Osteoporosis: Comment: Prolia-1st dose 01/19/2023 Code(s): M81.0 - Age-related osteoporosis without current pathological fracture Category: Medical Qualifiers: Osteoporosis type: age-related Presence of current pathological fracture: without current pathological fracture Qualified Code(s): M81.0 - Age-related osteoporosis without current pathological fracture Plan: DEXA 12/2023 showed improvement in bone density. Patient received her Prolia injection in clinic today. Continue with Prolia injection q.6 months. Next injection would be 02/2024 Check vitamin-D level before next visit Plan I spent 30 minutes reviewing patient's chart, evaluating patient, ordering diagnostic workup, counseling patient and documenting in the chart Orders: Orders Comprehensive Met. Panel 3 Months M81.0 - Age-related osteoporosis without current pathological fracture, Z79.60 - watermelon inspector (current) use of unspecified immunomodulators and immunosuppressants, Z79.899 - Other prison (current) drug therapy C Reactive Protein 3 Months M81.0 - Age-related osteoporosis without current pathological fracture, Z79.60 - [facility] (current) use of unspecified immunomodulators and immunosuppressants, Z79.899 - Other medical terminologist (current) drug therapy Erythrocyte Sedimentation Rate 3 Months M81.0 - Age-related osteoporosis without current pathological fracture, Z79.60 - [facility] (current) use of unspecified immunomodulators and immunosuppressants, Z79.899 - Other medical terminologist (current) drug therapy Complete Blood Count Auto Diff 3 Months M81.0 - Age-related osteoporosis without current pathological fracture, Z79.60 - watermelon inspector (current) use of unspecified immunomodulators and immunosuppressants, Z79.899 - Other medical terminologist (current) drug therapy Hepatitis A,B,C Profile 3 Months Z11.59 - Encounter for screening for other viral diseases T Spot TB 3 Months Z11.7 - Encounter for testing for latent tuberculosis infection Vitamin D 25-OH (D2 and D3) 3 Months E55.9 - Vitamin D deficiency, unspecified AMB Denosumab Injection Patient Supplied Today M81.0 - Age-related osteoporosis without current pathological fracture Medications: New Prolia (denosumab) 60 mg subcut ONCE 1 mL 0RF NS M81.0 - Age-related osteoporosis without current pathological fracture Refilled Orencia ClickJect (abatacept) 125 mg subcut QWEEK 4 mL 2RF NS leflunomide 10 mg PO DAILY 90 tabs 0RF M06.9 - Rheumatoid arthritis, unspecified Coding Level of Care Code Est Pt Level 4 (59925) Complex EM visit Add On G2211 Diagnoses Rheumatoid arthritis involving multiple sites with positive rheumatoid factor M05.79 Rheumatoid arthritis location: multiple sites Rheumatoid factor presence: with rheumatoid factor Long-term use of immunosuppressant medication Z79.60 Age-related osteoporosis without current pathological fracture M81.0 Osteoporosis type: age-related Presence of current pathological fracture: without current pathological fracture
[2024-09-09 09:36] VITALS: BP 92/58; PULSE 56; O2SAT 96; BMI 31.2
== END 2024-09-09 10:13 | disposition home or self-care (01) ==
LOC: HO.RHE 08:57
PROVIDERS: PCP Internal Medicine; Visit Provider Student in an Organized Health Care Education/Training Program
DX: M05.79 Rheumatoid arthritis with rheumatoid factor of multiple sites without organ or systems involvement (principal); Z79.60 Long term (current) use of unspecified immunomodulators and immunosuppressants; M81.0 Age-related osteoporosis without current pathological fracture
CPT/HCPCS: 99214; G2211

== ENCOUNTER → 2024-09-09 08:57 | Outpatient (BNVA) | payer OTHER, SELFPAY | PROVIDERS: PCP Internal Medicine; Visit Provider Student in an Organized Health Care Education/Training Program | DX: I48.0 Paroxysmal atrial fibrillation (principal); J44.9 Chronic obstructive pulmonary disease, unspecified; K21.9 Gastro-esophageal reflux disease without esophagitis; I47.19 Other supraventricular tachycardia; F33.0 Major depressive disorder, recurrent, mild; M05.79 Rheumatoid arthritis with rheumatoid factor of multiple sites without organ or systems involvement; H91.93 Unspecified hearing loss, bilateral; H53.8 Other visual disturbances; M81.0 Age-related osteoporosis without current pathological fracture; E55.9 Vitamin D deficiency, unspecified; Z09 Encounter for follow-up examination after completed treatment for conditions other than malignant neoplasm; Z79.60 Long term (current) use of unspecified immunomodulators and immunosuppressants; Z79.899 Other long term (current) drug therapy | CPT/HCPCS: 96372; 99212; 99495; J0897 ==

== ENCOUNTER 2024-09-09 13:29 | Outpatient (AMB) | payer OTHER, SELFPAY ==
--- NOTE | 2024-09-09 13:43 | MHC.PC.OV ---
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 ] dofetilide 500 mcg PO Q12H gabapentin 600 mg PO DAILY PRN 30 days ipratropium bromide 17 mcg/actuation (Atrovent HFA) 2 puffs inhalation Q8H 30 days leflunomide 10 mg PO DAILY losartan 100 mg PO DAILY metoprolol succinate ER 50 mg See Protocol PO BID nebulizers As directed Orencia ClickJect (abatacept) 125 mg subcut QWEEK NS prednisone 10 mg PO DAILY rivaroxaban (Xarelto) 20 mg PO DAILY sertraline 25 mg PO DAILY 90 days spironolactone 25 mg See Protocol PO DAILY 90 days umeclidinium 62.5 mcg/actuation (Incruse Ellipta) 1 inh inhalation DAILY 30 days Tobacco use date assessed: 01/17/24 Fall risk assessment: No Falls in past year Last assessed Fall Risk: 09/09/24 Dental Screening Dental Screen Date: 09/09/24 Did you have a dental visit in the last 12 months?: No Did you have a dental problem in the last 6 months where you did not have access to dental care?: No Was dental information given to patient?: Patient has dentist HPI TCM TCM Information Date of Discharge 09/06/24 Discharged From Interactive Contact Date (Reference documentation from this date) 09/08/24 HPI Comments History of Present Illness Details This is a 69-year-old female with rheumatoid arthritis, paroxysmal atrial fibrillation, mild recurrent major depression, and asthma-COPD overlap syndrome that comes today after hospital discharge follow-up with discharge date 09/06/2024 due to narrow complex tachycardia, acute chest pain and elevated troponins. Patient underwent ablation on 09/04/2024 at [facility] after being admitted with atrial fibrillation with rapid ventricular response. She said that 2 days later started having chest pain and daughter called 911 which bring her to the ER. [place] [facility] [place] she was found to have supraventricular tachycardia and was given IV diltiazem. Patient converted to normal sinus rhythm. Chest pressure was relieved. Troponins were still elevated and Cardiology was consulted which requested admission for observation. Patient feels markedly improved and it is saturating at 96% on room air and her heart rate is 94. Denies any chest pain, shortness on breath or palpitations. Complains of blurry vision and would like to see Ophthalmology. Has bilateral hearing loss and damage her hearing aids because she showers with them and do not work anymore. She also has chronic GERD and does not want to use any PPIs. Would like to see Gastroenterology. She follows with rheumatology for her rheumatoid arthritis. On SSRIs for her depression. Asthma-COPD overlap syndrome has been well controlled with long-acting inhaler and follow by pulmonology. Atrial fibrillation follow by cardiology and is on chronic anticoagulation. She denies any active bleeding. [facility] Medical History (Updated 09/09/24 @ 14:34 by Dafne Pollard MD) History of cardiac monitoring Diastolic heart failure Rheumatoid arthritis flare Abdominal discomfort Left shoulder pain Right wrist pain Right shoulder pain Obesity (BMI 30-39.9) Preoperative clearance Abnormal chest x-ray Obesity Pneumonitis Breast pain, left Diastolic dysfunction Pre-op chest exam Osteoarthritis of shoulders, bilateral Asthma-COPD overlap syndrome Personal history of nicotine dependence History of CVA (cerebrovascular accident) (~2017) ILD (interstitial lung disease) Post-menopausal Hypoxia Seropositive rheumatoid arthritis Right hemiplegia (~2017) Chronic anticoagulation GERD (gastroesophageal reflux disease) Rheumatoid arthritis Obstructive sleep apnea on CPAP Essential hypertension Paroxysmal atrial fibrillation (~2017) Pure hypercholesterolemia Surgical History History of appendectomy History of foot surgery History of shoulder surgery Family History Father No problems noted. Mother No problems noted. Brother Stomach cancer Social History Household Members: None Housing: Apartment Do you presently have visiting nurse or other home services: No Alcohol intake: current Alcohol intake frequency: does not drink Alcohol type: beer Patient Tobacco Use Status: Former Tobacco user Tobacco use type: Cigarette Years Smoked: 20 years e-Cigarette/Vaping Use: Never Used Second Hand Smoke Exposure: No service: No Current occupational status: retired Cognitive needs: No Hearing needs: No Vision needs: No Questionnaire Thrive Questionnaire Date Thrive assessed: 09/06/24 GENNY-7 AMB Questionnaire GENNY-7 Date GENNY - 7 assessed: 07/21/24 Source: Developed by Drs. Kai Mejai, Jade Cheng, Neil Gannon and colleagues, with an educational phil from [employer]. Review of Systems Const All systems reviewed & are unremarkable except as noted in HPI and below Eyes Reports blurry vision ENT Reports hearing loss Card Denies chest pain at rest, Denies chest pain with activity, Denies edema, Denies irregular heart rhythm, Denies claudication, Denies dyspnea, Denies dyspnea on exertion, Denies orthopnea, Denies paroxysmal nocturnal dyspnea and Denies slow heart rate Resp Denies cough, Denies dyspnea and Denies dyspnea on exertion GI Denies abdominal pain, Denies change in bowel habits, Denies excessive flatus, Reports heartburn, Denies nausea and Denies vomiting Physical exam (Primary Care) Vital Signs: Last Vital Signs BP 110/62 09/09/24 13:50 BMI result Body Mass Index 31.3 BMI Assessment/Plan discussion: High BMI High, discussed plan: lifestyle, weight reduction, dietary and physical activity Tobacco/Smoking Status: Tobacco use Status Tobacco use date assessed 01/17/24 09/09/24 13:43 Patient Tobacco Use Status Former Tobacco user 09/09/24 13:43 Tobacco use type Cigarette 09/09/24 13:43 e-Cigarette/Vaping Use Never Used 09/09/24 13:43 Thrive Assessment: Date of Thrive Assessment Date Thrive assessed 09/06/24 09/09/24 13:43 Resp Effort & Inspection: normal respiratory effort Auscultation: clear to auscultation bilaterally Cardio Jugular venous distension: no JVD Rate: regular rate Rhythm: regular rhythm Heart sounds: S1 normal heart sound present and S2 normal heart sound present Extrem Other: swan neck deformities in fingers Office Procedures Flu Questionnaire Does the patient have a severe egg allergy?: No Immunizations Fluarix Triv [id number] (PF) 45 mcg (15 mcg x 3)/0.5 mL IM syringe Performing Provider: Dafne Pollard MD [place] [facility] Documented (not given) by: Remy Mccall Dirk on 09/09/24 14:32 Reason Not Given: Not Given Coding Level of Care Code TCM Mod MDM <= 7 Days Diagnoses Hospital discharge follow-up Z09 Narrow complex tachycardia I47.19 Mild recurrent major depression F33.0 Asthma-COPD overlap syndrome J44.9 Rheumatoid arthritis involving multiple sites with positive rheumatoid factor M05.79 Rheumatoid arthritis location: multiple sites Rheumatoid factor presence: with rheumatoid factor Chronic GERD K21.9 Bilateral hearing loss, unspecified hearing loss type H91.93 Hearing loss type: unspecified Laterality: bilateral Blurry vision H53.8 Paroxysmal atrial fibrillation I48.0 Time Spent (min) 28 Assessment & Plan Assessment & Plan (1) Hospital discharge follow-up: Code(s): Z09 - Encounter for follow-up examination after completed treatment for conditions other than malignant neoplasm Category: Medical Plan: Discharge date 09/06/2024. Patient with supraventricular tachycardia at ER given IV diltiazem convert into normal sinus rhythm. Was admitted for observation due to persistent elevated troponins. Patient feels markedly improved with no chest pain or palpitations. (2) Narrow complex tachycardia: Code(s): I47.19 - Other supraventricular tachycardia Category: Medical Plan: Resolve with IV diltiazem. Denies palpitations, shortness on breath or chest pain. (3) Mild recurrent major depression: Code(s): F33.0 - Major depressive disorder, recurrent, mild Category: Medical Plan: Continue SSRIs. (4) Asthma-COPD overlap syndrome: Code(s): J44.9 - Chronic obstructive pulmonary disease, unspecified Category: Medical Plan: Continue long-acting inhaler. Use rescue inhaler as needed. (5) Rheumatoid arthritis: Comment: ++RF +++CCP On Humira from February 2019 to March 2021-discontinued due to congestive heart failure. Orencia started April 2021- present Methotrexate 2018- February 2022 discontinued due to interstitial lung disease Leflunomide added 01/2024 Code(s): M06.9 - Rheumatoid arthritis, unspecified Category: Medical Qualifiers: Rheumatoid arthritis location: multiple sites Rheumatoid factor presence: with rheumatoid factor Qualified Code(s): M05.79 - Rheumatoid arthritis with rheumatoid factor of multiple sites without organ or systems involvement Plan: Continue Orencia. Follow-up with rheumatology. (6) Chronic GERD: Code(s): K21.9 - Gastro-esophageal reflux disease without esophagitis Category: Medical Plan: Upper GI ordered. Referred to Gastroenterology. (7) Hearing loss: Code(s): H91.90 - Unspecified hearing loss, unspecified ear Category: Medical Qualifiers: Hearing loss type: unspecified Laterality: bilateral Qualified Code(s): H91.93 - Unspecified hearing loss, bilateral Plan: Referred to speech and hearing. (8) Blurry vision: Code(s): H53.8 - Other visual disturbances Category: Medical Plan: Referred to Ophthalmology. (9) Paroxysmal atrial fibrillation: Onset Date: ~2016 Comment: (Dx 08/2017) Code(s): I48.0 - Paroxysmal atrial fibrillation Category: Medical Plan: Continue metoprolol and chronic anticoagulation. Orders: Orders [place] upper GI series Today K21.9 - Gastro-esophageal reflux disease without esophagitis Referrals Gastroenterology Referral K21.9 - Gastro-esophageal reflux disease without esophagitis Ophthalmology Referral H53.8 - Other visual disturbances Speech and Hearing Referral H91.90 - Unspecified hearing loss, unspecified ear Medications: Changed From gabapentin 600 mg PO DAILY 30 days PRN 30 tabs 1RF Pain To gabapentin 600 mg PO BID PRN 60 tabs 4RF Pain 30 days
[2024-09-09 13:50] VITALS: BP 110/62; BMI 31.3
== END 2024-09-09 14:19 | disposition home or self-care (01) ==
LOC: HO.HMCH 13:30
PROVIDERS: PCP Internal Medicine; Visit Provider Internal Medicine
DX: I47.19 Other supraventricular tachycardia (principal); F33.0 Major depressive disorder, recurrent, mild; J44.9 Chronic obstructive pulmonary disease, unspecified; M05.79 Rheumatoid arthritis with rheumatoid factor of multiple sites without organ or systems involvement; I48.0 Paroxysmal atrial fibrillation; Z09 Encounter for follow-up examination after completed treatment for conditions other than malignant neoplasm; K21.9 Gastro-esophageal reflux disease without esophagitis; H91.93 Unspecified hearing loss, bilateral; H53.8 Other visual disturbances

== ENCOUNTER 2024-09-30 09:02 | Outpatient (REF) | payer OTHER, SELFPAY | END 2024-09-30 09:03 | disposition home or self-care (01) | LOC: HO.SH 09:02 | PROVIDERS: Visit Provider Internal Medicine | DX: Z01.118 Encounter for examination of ears and hearing with other abnormal findings (principal); H90.3 Sensorineural hearing loss, bilateral | CPT/HCPCS: 92557; 92567 ==

== ENCOUNTER → 2024-10-03 08:47 | Outpatient (REF) | payer OTHER, SELFPAY ==
--- NOTE | 2024-10-03 08:49 | CA_ITS ---
Transthoracic Echocardiogram Patient (Last, First, Middle): Leeanne Lozada, Gender: Female Date of : 1955 Age: 69 Procedure Date: 10/03/2024 Procedure Type: Transthoracic Echocardiogram Location: OP Height: 149.86 cm Weight: 69.85 kg BSA: 1.65 m2 Heart Rate: bpm BP: 130 / 83 mmHg Nuclear Operations Specialist: Referring MD: Brian Pacheco MD Estate Planning Director: Noah Montoya MD Symptoms: R79.89 - Other specified abnormal findings of blood chemistry Study Quality: Good ECG Rhythm: Sinus Conclusions: - 1. Normal LV ejection fraction of 65-70% with mild LVH with grade 2 diastolic dysfunction 2. Severely dilated left atrium 3. Severe mitral calcification with cardiac valvular Dopplers within normal limits 4. Upper limits of normal RV systolic pressure 5. No gross pericardial effusion Findings Left Ventricle Normal left ventricular size and systolic function. There is mildly increased left ventricular wall thickness. The visually estimated ejection fraction is between 65-70%. Spectral Doppler is indicative of a pseudonormal filling pattern. E/E prime ratio is >15, consistent with elevated filling pressures. Evidence suggests grade II (moderate) diastolic dysfunction. Right Ventricle Normal right ventricular cavity size and systolic function. Atria The left atrium is severely dilated. There is no evidence of interatrial shunt. The right atrium is likely dilated. Aortic Valve The aortic valve was not well visualized. There is no aortic valve stenosis. There is no aortic valve regurgitation. Mitral Valve There is mild anterior and severe posterior mitral leaflet thickening. There is severe mitral annular calcification. There is no mitral valve regurgitation. mild mitral stenosis can not be ruled out Pulmonic Valve The pulmonic valve is likely normal. There is trace pulmonic valve regurgitation. Tricuspid Valve Normal tricuspid valve structure. There is mild tricuspid valve regurgitation. The right ventricular systolic pressure is 36 mmHg. Normal right atrial pressure. There is no evidence of pulmonary hypertension. Great Vessels The pulmonary artery was not well visualized. There is no dilatation of the ascending aorta measuring 2.90 cm. Small plaque is seen in the sino tubular ridge. Venous The inferior vena cava is normal in size and collapses greater than 50% with inspiration. Pericardium/Pleural There is no evidence of pericardial effusion. Prior Study Comparison No significant change compared to prior study dated: 04/11/2024. Measurements 2D Linear Measurements IVSd: 1.37 0.6-0.9/0.6-1.0 cm LVIDd: 3.57 3.9-5.3/4.2-5.9 cm LVIDd Index: 2.16 2.4-3.2/2.2-3.1 cm/m2 LVIDs: 2.14 2.0-3.6 cm LVPWd: 1.33 0.7-1.1 cm Ao Root: 2.50 2.1-3.5 cm LA Diam: 4.20 2.7-3.8/3.0-4.0 cm LAIDs Index: 2.55 1.5-2.3 cm/m2 LV Mass: 209.03 67-162/88-224 g LV Mass Index: 126.69 43-95/49-115 g/m2 LVOT Diam: 2.00 3.0+(-)1.3 cm Mitral Valve MV VTI: 0.55 MV Pk Latrell: 1.43 MV Mn Latrell: 0.88 MV Pk Grad: 8.00 MV Mn Grad: 4.00 MV Pk E: 1.44 MV PK A: 1.11 MV Decel Time: 315.00 E/A: 1.30 E'Lateral: 3.70 E'Medial: 3.70 E/E' Med: 38.90 E/E' Lat: 38.90 PHT: 92.00 MVA PHT: 2.39 MVA Continuity: 1.78 Decel Barbour: 4.56 Aortic Valve AoV Pk Latrell: 1.48 AoV Mn Latrell: 0.97 AoV VTI: 0.33 AoV Pk Grad: 9.00 Aov Mn Grad: 4.00 RICHARD Cont.VTI: 2.93 LVOT LVOT Pk Latrell: 1.32 LVOT Mn Latrell: 0.88 LVOT VTI: 0.31 LVOT Pk Grad: 7.00 LVOT Mn Grad: 4.00 LVOT Diam: 2.00 LVOT Area: 3.14 Diastolic Function MV Pk E: 1.44 MV Pk A: 1.11 E/A: 1.30 E'Medial: 3.70 E/E' Med: 38.90 E' Laterial: 3.70 E/E' Lat: 38.90 Right Ventricle TAPSE (mm): 22.00 TVS' Latrell: 11.00 Tricuspid Valve TR Pk Latrell: 2.88 TR Pk Grad: 33.00 RA Press: 3.00 RVSP: 36.00 Great Vessels Aorta Ao Root-2D: 2.50 2.0-3.7 cm Ao Asc: 2.90 2.1-3.4 cm Pulmonary Valve PV Pk Latrell: 0.83 Peak PV Grad: 3.00 Updated in Other Vendor System with Status of Final Noah Montoya MD electronically signed on 10/04/2024 10:17:53 AM with status of Final
== END ==
LOC: HO.CARD 08:47
PROVIDERS: PCP Internal Medicine; Visit Provider Internal Medicine Cardiovascular Disease
DX: R79.89 Other specified abnormal findings of blood chemistry (principal)
CPT/HCPCS: 93306

== ENCOUNTER → 2024-10-03 08:49 | Outpatient (BNV) | payer OTHER, SELFPAY | PROVIDERS: PCP Internal Medicine; Visit Provider Internal Medicine Cardiovascular Disease | DX: I34.2 Nonrheumatic mitral (valve) stenosis (principal); I34.81 Nonrheumatic mitral (valve) annulus calcification | CPT/HCPCS: 93306 ==

== ENCOUNTER 2024-11-03 08:48 | Outpatient (AMB) | payer OTHER, SELFPAY ==
--- NOTE | 2024-11-03 09:17 | MHC.OFFVIS ---
Vital Signs 11/03/24 09:18 Height 4 ft 11 in Weight 156 lb 8.451 oz BMI 31.6 BP 126/60 Blood Pressure Location Lt brachial Position Sitting Pulse 72 Pulse Source Pulse Oximeter Pulse Oximetry (%) 97 Oxygen Delivery Method Room Air Intake Visit Reasons: Dysphagia, unspecified Intake Note: NEW PATIENT Leeanne presents in office today for a scheduled initial assessment and consult Prior hx of colo/egd? None found in chart Meds and Allergies reviewed? Y Any significant concerns or questions? Dysphagia. Pt has significant cardiac hx and sees Dr. Montoya. Pt also reports GERD and abd pain. Pharmacy verified? [facility] Pharmacy Ladle Builder Required: Yes Ladle Builder Services: Ladle Builder Present Ladle Builder Name: [id number] Ramesh Information Interpreted: non-clinical & clinical Allergies No Known Allergies [No Known Allergies*] Allergy (Verified 11/03/24 09:18) HPI HPI Dysphagia, unspecified: Details: 69-year-old female with past medical history of chronic GERD, PAF on coagulation on Xarelto, chest pain, long time of immunosuppressant use, osteoarthritis, osteoporosis, asthma, COPD, CVA, hypertension, hyperlipidemia is here today for initial consultation. Patient was sent to us by her PCP for evaluating ongoing and worsening dysphagia. Patient has been diagnosed with GERD in the past, however recently she is having more trouble swallowing. Patient is using budesonide inhaler and reports that she is rinsing her mouth after using it. Patient denies choking episodes. Denies any nausea or vomiting. Reports postprandial abdominal bloating. Denies constipation, diarrhea. Denies melena, hematochezia, unintentional weight loss or ribbon like stools. Denies any dyspepsia or odynophagia. [facility] Medical History History of cardiac monitoring Diastolic heart failure Rheumatoid arthritis flare Abdominal discomfort Left shoulder pain Right wrist pain Right shoulder pain Obesity (BMI 30-39.9) Preoperative clearance Abnormal chest x-ray Obesity Pneumonitis Breast pain, left Diastolic dysfunction Pre-op chest exam Osteoarthritis of shoulders, bilateral Asthma-COPD overlap syndrome Personal history of nicotine dependence History of CVA (cerebrovascular accident) (~2017) ILD (interstitial lung disease) Post-menopausal Hypoxia Seropositive rheumatoid arthritis Right hemiplegia (~2017) Chronic anticoagulation GERD (gastroesophageal reflux disease) Rheumatoid arthritis Obstructive sleep apnea on CPAP Essential hypertension Paroxysmal atrial fibrillation (~2017) Pure hypercholesterolemia Surgical History History of appendectomy History of foot surgery History of shoulder surgery Family History Father No problems noted. Mother No problems noted. Brother Stomach cancer Social History Household Members: None Housing: Apartment Do you presently have visiting nurse or other home services: No Alcohol intake: current Alcohol intake frequency: does not drink Alcohol type: beer Patient Tobacco Use Status: Former Tobacco user Tobacco use type: Cigarette Years Smoked: 20 years e-Cigarette/Vaping Use: Never Used Second Hand Smoke Exposure: No service: No Current occupational status: retired Cognitive needs: No Hearing needs: No Vision needs: No Review of Systems Const Denies weight gain and Denies weight loss ENT Reports no additional complaints, Reports dysphagia and Denies odynophagia Card Reports no additional complaints Resp Reports no additional complaints GI Denies abdominal pain, Denies belching, Denies melena, Reports bloating, Denies change in bowel habits, Reports dysphagia, Denies excessive flatus, Denies dyspepsia, Reports heartburn, Denies diarrhea, Denies loose stools, Denies nausea, Denies odynophagia and Denies vomiting Reports no additional complaints Musc Reports no additional complaints Neuro Reports no additional complaints Psych Reports no additional complaints Endo Reports no additional complaints Physical Exam Vital Signs: Last Vital Signs Pulse 72 11/03/24 09:18 BP 126/60 11/03/24 09:18 Pulse Ox 97 11/03/24 09:18 Oxygen Delivery Method Room Air 11/03/24 09:18 BMI result Body Mass Index 31.6 Const General: healthy appearing and no acute distress Nutritional Appearance: obese Orientation/consciousness: patient oriented x3 Resp Effort & Inspection: normal respiratory effort, able to speak in complete sentences, no tracheal deviation and symmetric chest movement Auscultation: clear to auscultation bilaterally Cardio Rate: regular rate GI Inspection: Yes normal to inspection, No distended and Yes obesity Palpation (GI): Soft to palpation, not firm, nontender and No hepatosplenomegaly present Auscultation: normal bowel sounds General: Yes no CVA tenderness Back/Spine/Pelvis Back: no CVA tenderness Skin General skin exam: elasticity normal, turgor normal and dry skin Neuro General: patient oriented x3 Psych Appearance: grossly normal Mental Status: mental status grossly normal Assessment & Plan Assessment & Plan (1) Chronic GERD: Code(s): K21.9 - Gastro-esophageal reflux disease without esophagitis Category: Medical (2) Dysphagia: Code(s): R13.10 - Dysphagia, unspecified Category: Medical Qualifiers: Dysphagia type: unspecified Qualified Code(s): R13.10 - Dysphagia, unspecified (3) Postprandial abdominal bloating: Code(s): R14.0 - Abdominal distension (gaseous) Plan Will order upper GI with barium swallow to rule out Schatzki ring, esophageal dysmotility, esophageal narrowing. Patient will start taking pantoprazole daily. Avoid dietary triggers and late night snacking. Possible patient might have eosinophilic esophagitis that could be contributing to her dysphagia. Patient was educated that she must rinse her mouth well each time she uses her inhaler. Patient reports also pain in her upper abdomen will check liver enzymes. Check vitamin B12, folate vitamin-D level. Patient will return to the office in 3 months to discuss labs and upper GI series with barium swallow. She is agreeable to this plan and verbalizes understanding of instructions. She was given the opportunity to ask questions and all questions answered. Thank you for allowing me to participate in her care Orders: Orders Liver Panel 11/03/24 R74.01 - Elevation of levels of liver transaminase levels [place] upper GI w Ba Swallow 11/03/24 K21.9 - Gastro-esophageal reflux disease without esophagitis Vitamin B12 and Folate 11/03/24 R19.7 - Diarrhea, unspecified Vitamin D 25-OH (D2 and D3) 11/03/24 E55.9 - Vitamin D deficiency, unspecified Medications: New pantoprazole take one tablet half an hour before breakfast 40 mg PO DAILY 30 tabs 3RF K21.9 - Gastro-esophageal reflux disease without esophagitis Coding Level of Care Code New Pt Level 4 (11953) Diagnoses Chronic GERD K21.9 Dysphagia, unspecified type R13.10 Dysphagia type: unspecified Postprandial abdominal bloating R14.0 Time Spent (min) 45 Comment 30 minutes spent with patient and additional 15 minutes spent reviewing her records
[2024-11-03 09:18] VITALS: BP 126/60; PULSE 72; O2SAT 97; BMI 31.6
== END 2024-11-03 10:02 | disposition home or self-care (01) ==
PROVIDERS: PCP Internal Medicine; Visit Provider Nurse Practitioner Family
DX: K21.9 Gastro-esophageal reflux disease without esophagitis (principal); R13.10 Dysphagia, unspecified; R14.0 Abdominal distension (gaseous)
CPT/HCPCS: 99204

== ENCOUNTER 2024-11-03 08:48 | Outpatient (REF) | payer OTHER, SELFPAY ==
[2024-11-03 11:57] LABS: Alanine Aminotransferase 17 U/L (0-31); Albumin Level 4.4 g/dL (3.5-5.0); Alkaline Phosphatase 64 U/L (39-117); Aspartate Amino Transferase 26 U/L (5-31); Bilirubin Direct 0.1 mg/dL (0.0-0.5); Bilirubin Total 0.3 mg/dL (0.0-1.0); Total Protein 8.1 g/dL (6.5-8.0)
[2024-11-03 12:21] LABS: Folate 11.9 ng/mL (> or = 4.0); Vitamin B12 1766 pg/mL (200-900)
[2024-11-08 10:54] LABS: Vitamin D 25-OH, D2 <4 ng/mL; Vitamin D 25-OH, D3 40 ng/mL; Vitamin D 25-OH, Total 40 ng/mL (30-100)
== END 2024-11-03 08:49 | disposition home or self-care (01) ==
LOC: HO.LAB 08:48
PROVIDERS: PCP Internal Medicine; Visit Provider Nurse Practitioner Family
DX: R74.01 Elevation of levels of liver transaminase levels (principal); E55.9 Vitamin D deficiency, unspecified; R19.7 Diarrhea, unspecified; K21.9 Gastro-esophageal reflux disease without esophagitis; R13.10 Dysphagia, unspecified; R14.0 Abdominal distension (gaseous)
CPT/HCPCS: 36415; 80076; 82306; 82607; 82746; 99202

== ENCOUNTER 2024-11-27 13:19 | Outpatient (AMB) | payer OTHER, SELFPAY ==
[2024-11-27 13:31] VITALS: BP 112/70; PULSE 76; O2SAT 98; BMI 31.3
--- NOTE | 2024-11-27 13:31 | MHC.PC.OV ---
Vital Signs 11/27/24 13:31 Height 4 ft 11 in Weight 155 lb BMI 31.3 BP 112/70 Blood Pressure Location Lt brachial Position Sitting Pulse 76 Pulse Source Pulse Oximeter Pulse Oximetry (%) 98 Oxygen Delivery Method Room Air Intake Visit Reasons: Cataract surgery r eye 12/25/24 L eye 01/08/25 Circuit Walker Required: Yes Circuit Walker Language: Piecer Up Name: Dafne Pollard MD Information Interpreted: non-clinical & clinical Accompanied by: Self / Same As Patient Allergies No Known Allergies [No Known Allergies*] Allergy (Verified 11/27/24 13:57) Medication List - Last Reconciled 11/27/24 by Dafne Pollard MD acetaminophen ER 650 mg PO Q6H PRN atorvastatin 40 mg PO BEDTIME budesonide 0.5 mg inhalation DAILY [cane As directed] cane As directed [Cock up splint Wear on right wrist at night. ] dofetilide 500 mcg PO Q12H gabapentin 600 mg PO BID PRN 30 days ipratropium bromide 17 mcg/actuation (Atrovent HFA) 2 puffs inhalation Q8H 30 days leflunomide 10 mg PO DAILY metoprolol succinate ER 50 mg See Protocol PO BID nebulizers As directed Orencia ClickJect (abatacept) 125 mg subcut QWEEK NS pantoprazole 40 mg PO DAILY prednisone 10 mg PO DAILY rivaroxaban (Xarelto) 20 mg PO DAILY sertraline 25 mg PO DAILY 90 days spironolactone 25 mg See Protocol PO DAILY 90 days umeclidinium 62.5 mcg/actuation (Incruse Ellipta) 1 inh inhalation DAILY 30 days Tobacco use date assessed: 11/27/24 Fall risk assessment: No Falls in past year Last assessed Fall Risk: 11/27/24 Dental Screening Dental Screen Date: 11/27/24 Did you have a dental visit in the last 12 months?: No Did you have a dental problem in the last 6 months where you did not have access to dental care?: No Was dental information given to patient?: Patient declined HPI HPI Comments History of Present Illness Details The patient is a 69-year-old female presenting with cataracts. During the conversation, the patient refers to an operative procedure related to cataracts, indicating a need for surgical evaluation or treatment. The patient did not provide specific details about the duration of symptoms or any previous medical interventions related to cataracts. The discussion did not include any associated symptoms or progression of the cataracts over time. She has 5 to 7 METs of ADLs. EKG and labs are pending for medical clearance. She has paroxysmal atrial flutter, asthma-COPD overlap syndrome, rheumatoid arthritis, [place] on cpap, and mild major depression stable with meds. [facility] Medical History (Updated 11/27/24 @ 14:06 by Dafne Pollard MD) History of cardiac monitoring Diastolic heart failure Rheumatoid arthritis flare Abdominal discomfort Left shoulder pain Right wrist pain Right shoulder pain Obesity (BMI 30-39.9) Preoperative clearance Abnormal chest x-ray Obesity Pneumonitis Breast pain, left Diastolic dysfunction Pre-op chest exam Osteoarthritis of shoulders, bilateral Asthma-COPD overlap syndrome Personal history of nicotine dependence History of CVA (cerebrovascular accident) (~2017) ILD (interstitial lung disease) Post-menopausal Hypoxia Seropositive rheumatoid arthritis Right hemiplegia (~2017) Chronic anticoagulation GERD (gastroesophageal reflux disease) Rheumatoid arthritis Obstructive sleep apnea on CPAP Essential hypertension Paroxysmal atrial fibrillation (~2017) Pure hypercholesterolemia Surgical History History of appendectomy History of foot surgery History of shoulder surgery Family History Father No problems noted. Mother No problems noted. Brother Stomach cancer Social History Household Members: None Housing: Apartment Do you presently have visiting nurse or other home services: No Alcohol intake: current Alcohol intake frequency: does not drink Alcohol type: beer Patient Tobacco Use Status: Former Tobacco user Tobacco use type: Cigarette Years Smoked: 20 years e-Cigarette/Vaping Use: Never Used Second Hand Smoke Exposure: No service: No Current occupational status: retired Cognitive needs: No Hearing needs: No Vision needs: No Questionnaire PHQ-9 Over the last 2 weeks, how often have you been bothered by any of the following problems? 1. Little interest or pleasure in doing things: not at all 2. Feeling down, depressed, or hopeless: not at all 3. Trouble falling or staying asleep, or sleeping too much: not at all 4. Feeling tired or having little energy: not at all 5. Poor appetite or overeating: not at all 6. Feeling bad about yourself - or that you are a failure or have let yourself or your family down: not at all 7. Trouble concentrating on things, such as reading the newspaper or watching television: not at all 8. Moving or speaking so slowly that other people could have noticed. Or the opposite - being so fidgety or restless that you have been moving around a lot more than usual: not at all 9. Thoughts that you would be better off or of hurting yourself in some way: not at all Total score: 0 Depression Screening Interpretation: Negative Depression Screening Done: Yes 88397 - PHQ-9 Billing: Yes Source: Developed by Drs. Kai Mejia, Jade Cheng, Neil Gannon and colleagues, with an educational phil from [employer]. Thrive Questionnaire Date Thrive assessed: 11/27/24 I am a: Patient What is your living situation today?: I have a steady place to live Within the past 12 months, did the food you bought not last and you didn't have the money to get more?: Never true Within the past 12 months, did you worry whether your food would run out before you got money to buy more?: Never true Do you have trouble paying for medicines?: No Do you have trouble getting transportation to medical appointments?: No Do you have trouble paying your heating and electricity bill?: No Do you have trouble taking care of your child, family member or friend?: No Do you have trouble with day-to-day activities such as bathing, preparing meals, shopping, managing finances, etc.?: No Are you currently unemployed and looking for a job?: No Are you interested in more education?: No Please select the resources that you would like help with: None Currently or been in a relationship where the following occur: No concerns reported THRIVE Score: 0 AUDIT C Alcohol Use Questionnaire (AUDIT-C) 1. How often do you have a drink containing alcohol?: Monthly or less 2. How many drinks containing alcohol do you have on a typical day when you are drinking?: 1 or 2 3. How often do you have six or more drinks on one occasion?: Never Total Score: 1 Score Reviewed/Action Taken: No GENNY-7 AMB Questionnaire GENNY-7 Date GENNY - 7 assessed: 11/27/24 Feeling nervous, anxious, or on edge: 1 = Several days Not being able to stop or control worryin = Not at all Worrying too much about different things: 1 = Several days Trouble relaxin = Not at all Being so restless that it is hard to sit still: 0 = Not at all Becoming easily annoyed or irritable: 0 = Not at all Feeling afraid as if something awful might happen: 0 = Not at all Total GENNY-7 score (0-4 normal; 5-9 mild; 10-14 moderate; 15-21 severe): 2 Source: Developed by Drs. Kai Mejia, Jade Cheng, Neil Gannon and colleagues, with an educational phil from [employer]. GENNY-7 Assessment Billing GENNY-7 Assessment Tool: GENNY-7 Assessment 42242 Review of Systems Const All systems reviewed & are unremarkable except as noted in HPI and below Card Denies chest pain at rest, Denies chest pain with activity, Denies edema, Denies irregular heart rhythm, Denies claudication, Denies dyspnea, Denies dyspnea on exertion, Denies orthopnea, Denies paroxysmal nocturnal dyspnea and Denies slow heart rate Resp Denies cough, Denies dyspnea and Denies dyspnea on exertion GI Denies abdominal pain, Denies change in bowel habits, Denies excessive flatus, Denies nausea and Denies vomiting Physical exam (Primary Care) Vital Signs: Last Vital Signs Pulse 76 11/27/24 13:31 BP 112/70 11/27/24 13:31 Pulse Ox 98 11/27/24 13:31 Oxygen Delivery Method Room Air 11/27/24 13:31 BMI result Body Mass Index 31.3 BMI Assessment/Plan discussion: High BMI High, discussed plan: lifestyle, weight reduction, dietary and physical activity Tobacco/Smoking Status: Tobacco use Status Tobacco use date assessed 11/27/24 11/27/24 13:35 Patient Tobacco Use Status Former Tobacco user 11/27/24 13:35 Tobacco use type Cigarette 11/27/24 13:35 e-Cigarette/Vaping Use Never Used 11/27/24 13:35 PHQ-9: PHQ-9 Score PHQ-9: Total score 0 11/27/24 13:59 Depression Screening Interpretation: Negative Thrive Assessment: Date of Thrive Assessment Date Thrive assessed 11/27/24 11/27/24 13:35 Currently or been in a relationship where the following occur: No concerns reported Resp Effort & Inspection: normal respiratory effort Auscultation: clear to auscultation bilaterally Cardio Jugular venous distension: no JVD Rate: regular rate Rhythm: regular rhythm Heart sounds: S1 normal heart sound present and S2 normal heart sound present Extrem General: Yes full ROM Coding Level of Care Code Est Pt Level 4 (36051) Complex EM visit Add On G2211 Diagnoses Pre-op evaluation Z01.818 Paroxysmal atrial flutter I48.92 Mild recurrent major depression F33.0 Asthma-COPD overlap syndrome J44.9 Rheumatoid arthritis involving multiple sites with positive rheumatoid factor M05.79 Rheumatoid arthritis location: multiple sites Rheumatoid factor presence: with rheumatoid factor Obstructive sleep apnea on CPAP G47.33; Z99.89 Additional Codes GENNY-7 Assessment Billing - GENNY-7 Assessment Tool: GENNY-7 Assessment 06638 ([id number]) PHQ-9 - 73080 - PHQ-9 Billing: Yes ([id number]) Time Spent (min) 23 Assessment & Plan Assessment & Plan (1) Pre-op evaluation: Code(s): Z01.818 - Encounter for other preprocedural examination Category: Medical (2) Paroxysmal atrial flutter: Code(s): I48.92 - Unspecified atrial flutter Category: Medical (3) Mild recurrent major depression: Code(s): F33.0 - Major depressive disorder, recurrent, mild Category: Medical (4) Asthma-COPD overlap syndrome: Code(s): J44.9 - Chronic obstructive pulmonary disease, unspecified Category: Medical (5) Rheumatoid arthritis: Comment: ++RF +++CCP On Humira from February 2019 to March 2021-discontinued due to congestive heart failure. Orencia started April 2021- present Methotrexate 2018- February 2022 discontinued due to interstitial lung disease Leflunomide added 01/2024 Code(s): M06.9 - Rheumatoid arthritis, unspecified Category: Medical Qualifiers: Rheumatoid arthritis location: multiple sites Rheumatoid factor presence: with rheumatoid factor Qualified Code(s): M05.79 - Rheumatoid arthritis with rheumatoid factor of multiple sites without organ or systems involvement (6) Obstructive sleep apnea on CPAP: Comment: not using cpap currently--doesn't have Code(s): G47.33 - Obstructive sleep apnea (adult) (pediatric); Z99.89 - Dependence on other enabling machines and devices Category: Medical Plan - Evaluate and plan for cataract surgery. - Discuss potential outcomes and necessary pre-operative procedures for cataract surgery. Patient was informed and verbally consented to the use of an ambient scribe for clinic note documentation during this visit. During the visit, I discussed with the patient the potential need for cataract surgery. We reviewed the usual surgical procedures, including the risks and benefits associated with the operation. I explained the necessity for pre-operative assessments and the expected outcomes post-surgery. We also talked about the importance of post-operative monitoring and follow-up to ensure optimal recovery and visual outcomes. The patient was informed about when to contact our office should there be any unexpected changes in her vision or symptoms. Orders: Orders Complete Blood Count Auto Diff 11/27/24 D64.9 - Anemia, unspecified ECG 12 lead EKG 11/27/24 Z01.818 - Encounter for other preprocedural examination Vitamin D 25-OH Total 11/27/24 E55.9 - Vitamin D deficiency, unspecified Lipid Panel 11/27/24 E78.5 - Hyperlipidemia, unspecified Comprehensive [place]. Panel Fast 11/27/24 Z01.818 - Encounter for other preprocedural examination Patient Instructions: - Follow up with the ophthalmology department for a surgical evaluation. - Prepare for pre-operative assessments as advised by the patient care provider. - Monitor for any changes in vision, and report them immediately.
== END 2024-11-27 14:04 | disposition home or self-care (01) ==
PROVIDERS: PCP Internal Medicine; Visit Provider Internal Medicine
DX: Z01.818 Encounter for other preprocedural examination (principal); I48.92 Unspecified atrial flutter; F33.0 Major depressive disorder, recurrent, mild; J44.9 Chronic obstructive pulmonary disease, unspecified; M05.79 Rheumatoid arthritis with rheumatoid factor of multiple sites without organ or systems involvement; G47.33 Obstructive sleep apnea (adult) (pediatric); Z99.89 Dependence on other enabling machines and devices

== ENCOUNTER → 2024-11-27 13:19 | Outpatient (BNVA) | payer OTHER, SELFPAY | PROVIDERS: PCP Internal Medicine; Visit Provider Internal Medicine | DX: Z01.818 Encounter for other preprocedural examination (principal); I48.92 Unspecified atrial flutter; F33.0 Major depressive disorder, recurrent, mild; J44.9 Chronic obstructive pulmonary disease, unspecified; M05.79 Rheumatoid arthritis with rheumatoid factor of multiple sites without organ or systems involvement; G47.33 Obstructive sleep apnea (adult) (pediatric); Z99.89 Dependence on other enabling machines and devices | CPT/HCPCS: 96127; 99212 ==

== ENCOUNTER 2024-12-01 08:02 | Outpatient (REF) | payer OTHER, SELFPAY ==
--- NOTE | 2024-12-01 08:44 | ECG_ITS ---
Test Reason : preop Blood Pressure : */* mmHG Vent. Rate : 58 BPM Atrial Rate : 58 BPM P-R Int : 166 ms QRS Dur : 64 ms QT Int : 460 ms P-R-T Axes : 23 13 75 degrees QTcB Int : 451 ms Sinus bradycardia Otherwise normal ECG When compared with ECG of 05-Sep-2024 19:09, Premature supraventricular complexes are no longer Present Vent. rate has decreased by 33 bpm Referred By: Dafne Pollard Electronically Signed By: PARIS RAIN MD
[2024-12-01 09:02] LABS: Alanine Aminotransferase 14 U/L (0-31); Albumin Level 4.1 g/dL (3.5-5.0); Alkaline Phosphatase 54 U/L (39-117); Anion Gap 12 (12-20); Aspartate Amino Transferase 24 U/L (5-31); Bilirubin Total 0.4 mg/dL (0.0-1.0); Blood Urea Nitrogen 13 mg/dL (9-16); C Reactive Protein 1.02 mg/dL (< or = 0.50); Carbon Dioxide 23 mmol/L (22-29); Chloride 112 mmol/L (96-108); Estimated Glomerular Filt Rate > 60; Glucose Random 84 mg/dL (60-115); Potassium 4.1 mmol/L (3.3-5.1); Sodium 143 mmol/L (135-145); Total Protein 8.1 g/dL (6.5-8.0)
[2024-12-01 09:21] LABS: Vitamin D 25-OH Total 48.8 ng/mL (>30)
[2024-12-01 09:22] LABS: HBS Num1 1.67 mIU/mL (0-7.99); HBc Num1 0.09 S/CO (0.00-0.79); HBsAGNum1 0.36 S/CO (0.00-0.99); Hepatitis A Antibody IgM 0.35 Index (0-0.79); Hepatitis B Core Antibody Nonreactive (Nonreactive); Hepatitis B Surface Antigen Negative (Negative); ~HepC Num1 0.07 S/CO (0.00-0.79); ~Hepatitis A Antibody IgM Nonreactive (Nonreactive); ~Hepatitis B Surface Antibody NONREACTIVE (Nonreactive); ~Hepatitis C Antibody Nonreactive (Nonreactive)
[2024-12-01 09:25] LABS: Erythrocyte Sedimentation Rate 73 MM/HR (0-20)
[2024-12-01 12:45] LABS: Basophils Absolute Auto 0.1 X10*3/uL (0.0-0.2); Basophils Percent Auto 0.7 % (0-2); Eosinophils Absolute Auto 0.2 X10*3/uL (0.0-0.4); Eosinophils Percent Auto 3.3 % (0-4); Hematocrit 39.2 % (37.0-47.0); Hemoglobin 12.2 g/dl (12.0-16.0); Imm Gran Abs Auto 0.02 X10*3/uL (0.00-0.03); Imm Gran Pct Auto 0.3 % (0.0-0.4); Lymphocytes Absolute Auto 2.1 X10*3/uL (1.2-4.9); Lymphocytes Percent Auto 30.4 % (20-40); MANUAL DIFF FLAG SCAN; Mean Corpuscular HGB Conc 31.1 g/dl (31.0-35.0); Mean Corpuscular Hemoglobin 26.8 pg (27.0-33.0); Mean Corpuscular Volume 86.2 fL (80.0-98.0); Monocytes Absolute Auto 0.7 X10*3/uL (0.1-1.2); Monocytes Percent Auto 9.4 % (2-11); Neutrophils Absolute Auto 3.9 x10*3/uL (2.0-8.3); Neutrophils Percent Auto 55.9 % (45-73); PLT CLUMP 1; Red Blood Count 4.55 X10*6/uL (4.20-5.50); SCAN SMEAR FLAG 1
[2024-12-01 12:46] LABS: White Blood Count 6.9 X10*3/uL (4.8-10.8)
[2024-12-01 13:41] LABS: Mean Platelet Volume 14.2 fL (9.4-12.3); Platelet Count 163 X10*3/uL (160-400)
[2024-12-01 13:48] LABS: SLIDE REVIEW VERIFIED
[2024-12-03 19:43] LABS: TS Negative Control Passed; TS Panel A 0; TS Panel B 0; TS Positive Control Passed; TSpotTB Negative (Negative)
[2024-12-04 16:49] LABS: Vitamin D 25-OH, D2 <4 ng/mL; Vitamin D 25-OH, D3 37 ng/mL; Vitamin D 25-OH, Total 37 ng/mL (30-100)
== END 2024-12-01 08:03 | disposition home or self-care (01) ==
LOC: HO.LAB 08:02
PROVIDERS: Student in an Organized Health Care Education/Training Program; PCP Internal Medicine; Visit Provider Internal Medicine
DX: Z01.818 Encounter for other preprocedural examination (principal); D64.9 Anemia, unspecified; E55.9 Vitamin D deficiency, unspecified; M81.0 Age-related osteoporosis without current pathological fracture; Z79.60 Long term (current) use of unspecified immunomodulators and immunosuppressants; Z79.899 Other long term (current) drug therapy; Z11.59 Encounter for screening for other viral diseases; Z11.7 Encounter for testing for latent tuberculosis infection
CPT/HCPCS: 36415; 80053; 82306; 85025; 85652; 86140; 86481; 86704; 86706; 86709; 86803; 87340; 93005

== ENCOUNTER → 2024-12-01 08:44 | Outpatient (BNV) | payer OTHER, SELFPAY | PROVIDERS: PCP Internal Medicine; Visit Provider Internal Medicine Cardiovascular Disease | DX: R00.1 Bradycardia, unspecified (principal) | CPT/HCPCS: 93010 ==

== ENCOUNTER 2024-12-11 09:52 | Outpatient (AMB) | payer OTHER, SELFPAY ==
--- NOTE | 2024-12-11 09:53 | MHC.OFFVIS ---
Vital Signs 12/11/24 09:58 Height 4 ft 11 in Weight 158 lb 8.198 oz BMI 32.0 BP 122/74 Blood Pressure Location Rt brachial Position Sitting Pulse 79 Pulse Source Pulse Oximeter Pulse Oximetry (%) 98 Oxygen Delivery Method Room Air Intake Visit Reasons: osteoporosis/RA Intake Note: Patient presents for Osteoporosis/RA. Left shoulder intense pain. I can't even sleep. Hydrometer Finisher Required: Yes Hydrometer Finisher Language: Machine Package Sealer Services: Hydrometer Finisher Present Hydrometer Finisher Name: [id number] Information Interpreted: non-clinical & clinical Allergies No Known Allergies [No Known Allergies*] Allergy (Verified 12/11/24 09:57) HPI Comments Details: Patient is a 69-year-old female with hyperlipidemia, hypertension complicated by CVA and coronary artery disease with subsequent systolic heart failure, paroxysmal atrial flutter/fibrillation on anticoagulation, polyarticular osteoarthritis, and seropositive erosive rheumatoid arthritis here today for follow up Interval History: Patient last seen 09/09/[address] Perez. At that time patient was complaining of right shoulder pain and received a right shoulder steroid injection. With respect to her rheumatoid arthritis she did not have any evidence of active synovitis on the exam and was overall doing well Today, Patient complains of left shoulder pain and is hoping to get an injection today She states that she is doing overall well. Tolerating the lower dose of prednisolone. Does note that 2 days after she takes the Orencia her left knee we will swell but this resolves on its own. Planning to go to [place] in February Rheumatologic History: ++RF +++CCP On Humira from February 2019 to March 2021-discontinued due to congestive heart failure. Orencia started April 2021- present Methotrexate 2018- February 2022 discontinued due to interstitial lung disease Leflunomide added 01/2024 Current Rheumatology Medication(s): Orencia 125 mg every week Leflunomide 10 mg every day Prednisone 2.5 mg everyday [facility] Medical History (Updated 12/11/24 @ 12:24 by Catie Nguyen MD) Encounter for monitoring denosumab therapy Osteoarthritis of left shoulder History of cardiac monitoring Diastolic heart failure Rheumatoid arthritis flare Abdominal discomfort Left shoulder pain Right wrist pain Right shoulder pain Obesity (BMI 30-39.9) Preoperative clearance Abnormal chest x-ray Obesity Pneumonitis Breast pain, left Diastolic dysfunction Pre-op chest exam Osteoarthritis of shoulders, bilateral Asthma-COPD overlap syndrome Personal history of nicotine dependence History of CVA (cerebrovascular accident) (~2017) ILD (interstitial lung disease) Post-menopausal Hypoxia Seropositive rheumatoid arthritis Right hemiplegia (~2017) Chronic anticoagulation GERD (gastroesophageal reflux disease) Rheumatoid arthritis Obstructive sleep apnea on CPAP Essential hypertension Paroxysmal atrial fibrillation (~2017) Pure hypercholesterolemia Surgical History History of appendectomy History of foot surgery History of shoulder surgery Family History Father No problems noted. Mother No problems noted. Brother Stomach cancer Social History Household Members: None Housing: Apartment Do you presently have visiting nurse or other home services: No Alcohol intake: current Alcohol intake frequency: does not drink Alcohol type: beer Patient Tobacco Use Status: Former Tobacco user Tobacco use type: Cigarette Years Smoked: 20 years e-Cigarette/Vaping Use: Never Used Second Hand Smoke Exposure: No service: No Current occupational status: retired Cognitive needs: No Hearing needs: No Vision needs: No Review of Systems Const Details: Review of Systems Constitutional: Denies fever, chills, weight loss ENT: Denies vision changes, eye pain or eye redness, dental caries, dry mouth GI: Denies nausea, vomiting, diarrhea, abdominal pain, change in BM Pulm: Denies SOB, LEDESMA, hemoptysis, wheezing Cards: Denies chest pain, palpitations Skin: Denies Raynaud's, rash, nail changes, photosensitivity, FINISHED CARPET INSPECTOR: Denies headaches, weakness, paresthesias, recurrent falls MSK: as per HPI All other systems reviewed and are unremarkable except noted above Physical Exam Vital Signs: Last Vital Signs Pulse 79 12/11/24 09:58 BP 122/74 12/11/24 09:58 Pulse Ox 98 12/11/24 09:58 Oxygen Delivery Method Room Air 12/11/24 09:58 BMI result Body Mass Index 32.0 Vital signs reviewed Physical Examination CONSTITUITIONAL Patient alert and cooperative. Well appearing and in no apparent painful distress HEENT Conjunctiva and sclera clear. ?Pupils equal round and reactive to light. ?No lymphadenopathy. ? CHEST/RESPIRATORY SYSTEM Normal respiratory effort and able to speak in complete sentences. ?Clear to auscultation bilaterally. ?No crackles, rales, rhonchi, wheezes heard. CARDIAC SYSTEM Regular rate and rhythm. ?S1 and S2 heard no murmurs. ?Radial pulses intact bilaterally MSK Hands: ?Good library circulation department chief strength bilaterally. No deformities noted. ?No synovitis noted to the MCPs, PIPs or DIPs. ?Patient has swan-neck deformities involving the 2nd and 3rd digits of bilateral hands. Heberden's nodes noted. Weakness noted to the right side which is consistent with her residual right-sided hemiplegia from her CVA in 2017 Wrists: ?Full range of motion at the wrists without pain. ?No tenderness to palpation or synovitis noted to the wrists. Elbows: Full range of motion without pain. No tenderness, weakness, swelling, increased warmth or erythema. Shoulders: Decreased range of motion to the left shoulder with scar noted over the anterior shoulder indicating previous surgery. Tenderness to palpation of the AC joint and posterior shoulder joint. Right shoulder with good active and passive range of motion no tenderness to palpation of the AC joint or the posterior glenohumeral joints. Hips: Full range of motion without pain. Hip bursa: No tenderness to palpation Knees: ?Full range of motion. ?No tenderness, swelling, increased warmth or erythema.?No effusion or crepitations Ankles: Full range of motion. ?No tenderness, swelling, increased warmth or erythema.? Feet: ?Negative squeeze test. ?No tenderness to palpation or swelling of the MTPs. Tender points:?No tenderness to palpation of the bilateral trapezius, supraspinatus, greater trochanters, anterior costochondral junctions, bilateral gluteal areas, bilateral suboccipital muscle insertions SKIN Skin intact without rashes. Results Reviewed Results Reviewed: Laboratory Tests 12/09/18 08/29/24 12/01/24 08:50 10:52 08:06 WBC 6.9 RBC 4.55 Hgb 12.2 Hct 39.2 Plt Count 163 ESR 67 H 73 H Sodium 143 Potassium 4.1 Chloride 112 H Carbon Dioxide 23 BUN 13 Creatinine 0.66 Estimated GFR > 60 AST 24 ALT 14 Alkaline Phosphatase 54 C-Reactive Protein 1.02 H Total Protein 8.1 H Albumin 4.1 25-OH Vitamin D Total 37 Rheumatoid Factor 1013.0 H Cycl Citrul Peptide IgG >250 H Hepatitis A IgM Ab Nonreactive Hep Bs Antigen Negative Hep Bs Antibody NONREACTIVE Hep B Core Total Ab Nonreactive Hepatitis C Ab (EIA) Nonreactive TB Test (T-Spot) Com Negative Assessment & Plan Assessment & Plan (1) Rheumatoid arthritis: Comment: ++RF +++CCP On Humira from February 2019 to March 2021-discontinued due to congestive heart failure. Orencia started April 2021- present Methotrexate 2018- February 2022 discontinued due to interstitial lung disease Leflunomide added 01/2024 Code(s): M06.9 - Rheumatoid arthritis, unspecified Category: Medical Qualifiers: Rheumatoid arthritis location: multiple sites Rheumatoid factor presence: with rheumatoid factor Qualified Code(s): M05.79 - Rheumatoid arthritis with rheumatoid factor of multiple sites without organ or systems involvement Plan: #Seropositive Erosive RA Patient is a 69-year-old female with seropositive erosive rheumatoid arthritis. Currently on Orencia and leflunomide. No evidence of synovitis today. She did note just some intermittent swelling after get taking her Orencia but this is transient. Currently on 2.5 mg of prednisone as per patient. We will stop prednisone and monitor off of prednisolone. If she has a flare of her disease we can increase the leflunomide from 10 mg to 20 mg I did note that she has persistently elevated inflammatory markers but this could be confounded by several other factors including her weight. Plan - Orencia 125mg SC every week - Leflunomide 10mg PO daily - Stop prednisone - RTC January 2025 (Going to [place] in February) - Labs before next visit: CBC, CMP, ESR, CRP (2) Osteoarthritis of left shoulder: Code(s): M19.012 - Primary osteoarthritis, left shoulder Category: Medical Qualifiers: Osteoarthritis type: primary Qualified Code(s): M19.012 - Primary osteoarthritis, left shoulder Plan: #OA left shoulder Patient with osteoarthritis to the left shoulder status post replacement. Has been complaining of pain to this joint. Recommended x-rays and follow up with orthopedi Pcs, as Rheumatology does not administer steroid injections in the setting of joint replacements. Plan - Check XR shoulder - Reach out to Ortho for follow up - Topical diclofenac 1% qid (3) Osteoporosis: Comment: DEXA 12/2023. Left femur neck -2.3, Left femur total -1.4, AP spine -2.6 Prolia started 01/19/2023 Code(s): M81.0 - Age-related osteoporosis without current pathological fracture Category: Medical Qualifiers: Osteoporosis type: age-related Presence of current pathological fracture: without current pathological fracture Qualified Code(s): M81.0 - Age-related osteoporosis without current pathological fracture Plan: #Osteoporosis without history of fracture Patient with osteoporosis without history of fracture. Currently on Prolia and is due for her next dose in February however patient is going to [place] so we will give her her dose early in January Plan - Prolia dose in January - Labs before visit: Vitamin D and CMP - Next DEXA 2025 (4) Long-term use of immunosuppressant medication: Code(s): Z79.60 - intermodal dispatcher (current) use of unspecified immunomodulators and immunosuppressants Category: Medical Plan: #Long-term Use of Orencia Discussed with the patient the benefits and risks of Orencia (abatacept) for the management of the rheumatic condition Benefits include reduce pain, maintenance of remission and reduction of flares as well as ?progression of the disease Risks include injection sites/infusion reactions, increased risk of infections, liver problems, heart failure and cancer (rare) (5) Encounter for monitoring denosumab therapy: Code(s): Z51.81 - Encounter for therapeutic drug level monitoring; Z79.620 - intermodal dispatcher (current) use of immunosuppressive biologic Category: Medical Plan: #Long-term use of Denosumab Discussed with patient the risks and benefits of denosumab (Prolia) for the management of their osteoporosis Benefits include improved bone density, decreased fracture risk Risks include rapid bone loss if denosumab stopped, osteonecrosis of the jaw especially in patients with poor oral hygiene/diabetes/use of glucocorticoids/age greater than 65 years, atypical femoral fractures, injection site reactions. Mild increased risk of infections due to RANKL on T helper cells, increased risk of hypocalcemia especially in CKD patients Keep vitamin-D at least 35 ng/mL Advised to delay non emergent dental procedures to toward the end of the 6 month cycle and if they plan to stop denosumab would need to continue antiresorptive to maintain the effects of denosumabe Plan I spent 40 minutes reviewing the record and labs, taking a history using the science interpreter, examining the patient, discussing the treatment plan and documenting in the medical record Orders: Orders XR shoulder LT min 2V Today M19.012 - Primary osteoarthritis, left shoulder Medications: New diclofenac sodium 1% Apply to left shoulder 4 times a day 4 grams topical QID 100 grams 4RF M19.012 - Primary osteoarthritis, left shoulder Coding Level of Care Code Est Pt Level 5 (13401) Complex EM visit Add On G2211 Diagnoses Rheumatoid arthritis involving multiple sites with positive rheumatoid factor M05.79 Rheumatoid arthritis location: multiple sites Rheumatoid factor presence: with rheumatoid factor Primary osteoarthritis of left shoulder M19.012 Osteoarthritis type: primary Age-related osteoporosis without current pathological fracture M81.0 Osteoporosis type: age-related Presence of current pathological fracture: without current pathological fracture Long-term use of immunosuppressant medication Z79.60 Encounter for monitoring denosumab therapy Z51.81; Z79.620
[2024-12-11 09:58] VITALS: BP 122/74; PULSE 79; O2SAT 98; BMI 32.0
--- OUTSIDE RECORDS SUMMARY | 2024-12-11 12:57 | XMS_ITS | Clinical Summary ---
Author Organization [employer] [facility] Address [address] [place] [address] Care Team Providers Care Live In Caregiver Name Role Phone Provider, Not In System Primary Care Provider Un available Immunizations Name Administration Dates Next Due Influenza injectable quadrivalent preservative f ree 09/14/2021,08/16/2017 Influenza, High Dose Seasonal, Preservative Free 10/21/2019,12/17/2018 Moderna Covid-19 Vaccine 12+ 03/28/2022 Pfizer Covid-19 Vaccine 12+ Bivalent 10/13/2022 Pneumococcal Conjugate PCV 20 12/19/2023 Pneumococcal Polysaccharide PPSV23 08/14/2017 Tdap 12/19/2023 Zoster, Recombinant 04/06/2023,11/23/2022 Social History Tobacco Use Types Packs/Day Years Used Date Smoking Tobacco: Never Assessed Comments Unknown Sex and Gender Information Value Date Recorded Sex Assigned at Female 09/11/2022 10:36 AM EDT Legal Sex Female 10:36 AM EDT Gender Identity Female 09/11/2022 10:36 AM EDT Sexual Orientation Straight 09/11/2022 10 :36 AM EDT Plan of Treatment Health Maintenance Due Date Last Done Comments CT Colonography 1954 Colonoscopy 1954 Colorectal Cancer Screening 1954 Depression Screening 1954 FIT DNA/Cologuard 1954 FIT 1954 FOBT 1954 SDOH Screening 1954 Sigmoidoscopy 1954 Alcohol/Substance Use Screening 1966 Tobacco Screening 1966 Hepatitis C Screening 1972 Mammogram 1994 COVID-19 Vaccine ( season) 2024 10/13/2022, 03/28/2022, 12/05/2021, Additional history exists Influenza Vaccine (#1) 2024 , 10/21/2019, 12/17/2018, Additional history exists RSV Patients and Patients Aged 60 years or older (1 - 1-dose 75+ series) 2029 DTaP/Tdap/Td Vaccines (2 - Td or Tdap) 12/19/2033 12/19/2023 Zoster Vaccines Completed 04/06/2023, 11/23/2022 Pneumococcal Vaccine: 50+ Years Completed 12/19/2023, 08/14/2017 HIB Vaccines Aged Out No longer eligi ble based on patient's age to complete this topic HPV Vaccines Aged Out No longer eligi ble based on patient's age to complete this topic Hepatitis A Vaccines Aged Out No long er eligible based on patient's age to complete this topic Hepatitis B Vaccines Aged Out No long er eligible based on patient's age to complete this topic IPV Vaccines Aged Out No longer eligi ble based on patient's age to complete this topic Meningococcal Vaccine Aged Out No zenia emil eligible based on patient's age to complete this topic RSV under 20 months Aged Out No longe r eligible based on patient's age to complete this topic Rotavirus Vaccines Aged Out No longer eligible based on patient's age to complete this topic Insurance [facility] AD[facility] Care Teams Live In Caregiver Relationship Specialty Start Date End Date Provider, Not In System PCP - General 10/13/22
== END 2024-12-11 10:40 | disposition home or self-care (01) ==
LOC: HO.RHE 09:52
PROVIDERS: PCP Internal Medicine; Visit Provider Student in an Organized Health Care Education/Training Program
DX: M05.79 Rheumatoid arthritis with rheumatoid factor of multiple sites without organ or systems involvement (principal); M19.012 Primary osteoarthritis, left shoulder; M81.0 Age-related osteoporosis without current pathological fracture; Z79.60 Long term (current) use of unspecified immunomodulators and immunosuppressants; Z51.81 Encounter for therapeutic drug level monitoring; Z79.620 Long term (current) use of immunosuppressive biologic
CPT/HCPCS: 99215; G2211

== ENCOUNTER 2024-12-11 09:52 | Outpatient (REF) | payer OTHER, SELFPAY ==
--- NOTE | ~2024-12-11 | XR_ITS ---
EXAMINATION: XR SHOULDER, LEFT CLINICAL INFORMATION: M19.012 - Primary osteoarthritis, left shoulder COMPARISON: None available. TECHNIQUE: AP external rotation, Grashey, scapular Y, and axillary views of the left shoulder. FINDINGS: There is reversed total left shoulder prosthesis. The prosthetic components are in alignment. There is no periprosthetic loosening or fracture seen. XR/XR shoulder LT min 2V Impression: Total reversed left shoulder prosthesis in satisfactory alignment. No periprosthetic loosening Electronically signed by: Jimmie Liu MD 12/11/2024 01:18 PM [facility]
--- OUTSIDE RECORDS SUMMARY | 2024-12-11 14:29 | XMS_ITS | Clinical Summary ---
Author Organization [employer] [facility] Address [address] [place] [address] Care Team Providers Care Hat Brusher Machine Name Role Phone Provider, Not In System [...] patient's age to complete this topic Insurance [facility] AD[facility] Care Teams Hat Brusher Machine Relationship Specialty Start Date End Date Provider, Not In System PCP - General 10/13/22
== END 2024-12-11 09:53 | disposition home or self-care (01) ==
LOC: HO.XRAY 09:52
PROVIDERS: PCP Internal Medicine; Visit Provider Student in an Organized Health Care Education/Training Program
DX: M19.012 Primary osteoarthritis, left shoulder (principal); M05.79 Rheumatoid arthritis with rheumatoid factor of multiple sites without organ or systems involvement; M81.0 Age-related osteoporosis without current pathological fracture; Z79.60 Long term (current) use of unspecified immunomodulators and immunosuppressants; Z51.81 Encounter for therapeutic drug level monitoring; Z79.620 Long term (current) use of immunosuppressive biologic
CPT/HCPCS: 73030; 99212

== ENCOUNTER → 2024-12-11 10:49 | Outpatient (BNV) | payer OTHER, SELFPAY | PROVIDERS: PCP Internal Medicine; Visit Provider Radiology Diagnostic Radiology | DX: M19.012 Primary osteoarthritis, left shoulder (principal) | CPT/HCPCS: 73030 ==

== ENCOUNTER 2025-01-16 12:18 | Outpatient (AMB) | payer OTHER, SELFPAY ==
--- NOTE | 2025-01-16 12:56 | A.OFFVIS_ITS ---
Intake Visit Reasons: OV- LT shoulder discussion Intake Note: Leeanne is a 69 year old right hand dominant female who present today for a follow up of her left shoulder pain. At her last visit in July of 2023 we injected the right shoulder and discussed that she is not a surgical candidate. She is requesting to repeat injection today. Allergies No Known Allergies [No Known Allergies*] Allergy (Verified 01/16/25 12:58) HPI HPI OV- LT shoulder discussion: Details: 69 yo F with right shoulder OA and bursal symptoms which we have injected in the past. She comes in today however for her left shoulder. She had left reverse TSA in [place] ~ 15 years ago. She now describes pain and discomfort. She denies recent injury and denies fever/chills. She thinks we have injected her left shoulder in the past but I tole her I do not think that is the case. [facility] Medical History (Updated 12/11/24 @ 12:24 by Catie Nguyen MD) Encounter for monitoring denosumab therapy Osteoarthritis of left shoulder History of cardiac monitoring Diastolic heart failure Rheumatoid arthritis flare Abdominal discomfort Left shoulder pain Right wrist pain Right shoulder pain Obesity (BMI 30-39.9) Preoperative clearance Abnormal chest x-ray Obesity Pneumonitis Breast pain, left Diastolic dysfunction Pre-op chest exam Osteoarthritis of shoulders, bilateral Asthma-COPD overlap syndrome Personal history of nicotine dependence History of CVA (cerebrovascular accident) (~2016) ILD (interstitial lung disease) Post-menopausal Hypoxia Seropositive rheumatoid arthritis Right hemiplegia (~2016) Chronic anticoagulation GERD (gastroesophageal reflux disease) Rheumatoid arthritis Obstructive sleep apnea on CPAP Essential hypertension Paroxysmal atrial fibrillation (~2016) Pure hypercholesterolemia Surgical History (Updated 01/20/25 @ 09:05 by Jacob Camara MD) History of appendectomy History of foot surgery History of shoulder surgery Family History Father No problems noted. Mother No problems noted. Brother Stomach cancer Social History Household Members: None Housing: Apartment Do you presently have visiting nurse or other home services: No Alcohol intake: current Alcohol intake frequency: does not drink Alcohol type: beer Patient Tobacco Use Status: Former Tobacco user Tobacco use type: Cigarette Years Smoked: 20 years e-Cigarette/Vaping Use: Never Used Second Hand Smoke Exposure: No service: No Current occupational status: retired Cognitive needs: No Hearing needs: No Vision needs: No Physical Exam Extrem Other: left shoulder with well healed incision with no e/o abnormality. ER to 30 abduction to 90 with pain forward flexion to 120 Results Reviewed Results Reviewed: I personally reviewed relevant radiographs. Left rTSA in expected post operative position with no hardware complications. Likely some early osteolysis. Assessment & Plan Assessment & Plan (1) History of reverse total replacement of left shoulder joint: Code(s): Z96.612 - Presence of left artificial shoulder joint Category: Surgical Plan: H/o left rTSA. Leeanne is not a surgical candidate and I think a revision surgery would be extensive and I do no think the risks would be warranted. I think pain management may be benefiicial for her. An rx was written. Orders: Referrals Pain Management Referral Z96.612 - Presence of left artificial shoulder joint Coding Level of Care Code Est Pt Level 4 (17294) Diagnoses History of reverse total replacement of left shoulder joint Z96.612
--- OUTSIDE RECORDS SUMMARY | 2025-01-16 14:02 | XMS_ITS | Clinical Summary ---
Author Organization [employer] [facility] Address [address] [place] [address] Care Team Providers Care Occupational Health And Safety Manager Name Role Phone Provider, Not In System [...] patient's age to complete this topic Insurance [facility] AD[facility] Care Teams Occupational Health And Safety Manager Relationship Specialty Start Date End Date Provider, Not In System PCP - General 10/13/22
== END 2025-01-16 14:11 | disposition home or self-care (01) ==
PROVIDERS: PCP Internal Medicine; Visit Provider Orthopaedic Surgery
DX: Z47.89 Encounter for other orthopedic aftercare (principal); Z96.612 Presence of left artificial shoulder joint
CPT/HCPCS: 99213

== ENCOUNTER → 2025-01-16 12:18 | Outpatient (BNVA) | payer OTHER, SELFPAY | PROVIDERS: PCP Internal Medicine; Visit Provider Orthopaedic Surgery | DX: Z96.612 Presence of left artificial shoulder joint (principal); Z47.89 Encounter for other orthopedic aftercare | CPT/HCPCS: 99212; J0665; J1100; J2003 ==

== ENCOUNTER 2025-01-22 08:57 | Outpatient (AMB) | payer OTHER, SELFPAY ==
--- NOTE | 2025-01-22 09:12 | MHC.PC.OV ---
Vital Signs 01/22/25 09:14 Height 4 ft 11 in Weight 156 lb BMI 31.5 BP 120/70 Blood Pressure Location Lt brachial Position Sitting Intake Visit Reasons: PE Intake Note: Patient here for a physical exam Reimbursement Coordinator Required: Yes Reimbursement Coordinator Language: Intervention Teacher Name: Dafne Pollard MD Information Interpreted: non-clinical & clinical Accompanied by: Self / Same As Patient Allergies No Known Allergies [No Known Allergies*] Allergy (Verified 01/22/25 09:36) Medication List - Last Reconciled 01/22/25 by Dafne Pollard MD acetaminophen ER 650 mg PO Q6H PRN atorvastatin 40 mg PO BEDTIME budesonide 0.5 mg inhalation DAILY [cane As directed] cane As directed [Cock up splint Wear on right wrist at night. ] diclofenac sodium 1% 4 grams topical QID dofetilide 500 mcg PO Q12H gabapentin 600 mg PO BID PRN 30 days ipratropium bromide 17 mcg/actuation (Atrovent HFA) 2 puffs inhalation Q8H 30 days leflunomide 10 mg PO DAILY metoprolol succinate ER 50 mg See Protocol PO BID nebulizers As directed Orencia ClickJect (abatacept) 125 mg subcut QWEEK NS pantoprazole 40 mg PO DAILY rivaroxaban (Xarelto) 20 mg PO DAILY sertraline 25 mg PO DAILY 90 days spironolactone 25 mg See Protocol PO DAILY 90 days umeclidinium 62.5 mcg/actuation (Incruse Ellipta) 1 inh inhalation DAILY 30 days Tobacco use date assessed: 11/27/24 Fall risk assessment: No Falls in past year Last assessed Fall Risk: 01/22/25 Dental Screening Dental Screen Date: 11/27/24 HPI HPI Comments History of Present Illness Details The patient is a 69-year-old female presenting for an annual physical examination. She has a well-documented medical history of rheumatoid arthritis managed with Orencia, and osteoporosis, with regular monitoring under a first coat sander with the latest bone densitometry in December 2023. She is diagnosed with paroxysmal atrial flutter treated with Xarelto and has been identified with COPD. Depression, another of her chronic conditions, is currently well-managed with Sertraline. Past surgical interventions the patient has undergone include appendectomy, foot surgery, and shoulder surgery. She has a history of tobacco use but has since quit and consumes alcohol occasionally. The patient has kept up-to-date with her health maintenance, having completed mammogram screening in 2023, receiving pneumonia and tetanus vaccinations in the same year. She has no known medication allergies and takes multiple medications for her various health issues. The patient is due for a colonoscopy as part of her routine cancer screening in February. - Mammogram conducted in 2023 - Bone densitometry in December 2023 - Pneumonia vaccine administered in 2023 - Tetanus vaccine administered in 2023 - Scheduled colonoscopy in February 2024 [facility] Medical History (Updated 01/22/25 @ 11:50 by Dafne Pollard MD) Encounter for monitoring denosumab therapy Osteoarthritis of left shoulder History of cardiac monitoring Diastolic heart failure Rheumatoid arthritis flare Abdominal discomfort Left shoulder pain Right wrist pain Right shoulder pain Obesity (BMI 30-39.9) Preoperative clearance Abnormal chest x-ray Obesity Pneumonitis Breast pain, left Diastolic dysfunction Pre-op chest exam Osteoarthritis of shoulders, bilateral Asthma-COPD overlap syndrome Personal history of nicotine dependence History of CVA (cerebrovascular accident) (~2016) ILD (interstitial lung disease) Post-menopausal Hypoxia Seropositive rheumatoid arthritis Right hemiplegia (~2016) Chronic anticoagulation GERD (gastroesophageal reflux disease) Rheumatoid arthritis Obstructive sleep apnea on CPAP Essential hypertension Paroxysmal atrial fibrillation (~2016) Pure hypercholesterolemia Surgical History History of appendectomy History of foot surgery History of shoulder surgery Family History Father No problems noted. Mother No problems noted. Brother Stomach cancer Social History (Updated 01/22/25 @ 09:40 by Dafne Pollard MD) Household Members: None Housing: Apartment Do you presently have visiting nurse or other home services: No Alcohol intake: current Alcohol intake frequency: holidays/special occasions only Alcohol type: wine Patient Tobacco Use Status: Former Tobacco user Tobacco use type: Cigarette Years Smoked: 20 years e-Cigarette/Vaping Use: Never Used Second Hand Smoke Exposure: No service: No Current occupational status: retired Cognitive needs: No Hearing needs: Yes Vision needs: No Questionnaire PHQ-9 Over the last 2 weeks, how often have you been bothered by any of the following problems? 1. Little interest or pleasure in doing things: not at all 2. Feeling down, depressed, or hopeless: not at all 3. Trouble falling or staying asleep, or sleeping too much: not at all 4. Feeling tired or having little energy: not at all 5. Poor appetite or overeating: not at all 6. Feeling bad about yourself - or that you are a failure or have let yourself or your family down: not at all 7. Trouble concentrating on things, such as reading the newspaper or watching television: not at all 8. Moving or speaking so slowly that other people could have noticed. Or the opposite - being so fidgety or restless that you have been moving around a lot more than usual: not at all 9. Thoughts that you would be better off or of hurting yourself in some way: not at all Total score: 0 Depression Screening Interpretation: Negative Depression Screening Done: Yes 06237 - PHQ-9 Billing: Yes Source: Developed by Drs. Kai Mejia, Jade Cheng, Neil Gannon and colleagues, with an educational phil from [employer]. Thrive Questionnaire Date Thrive assessed: 11/27/24 I am a: Patient What is your living situation today?: I have a steady place to live Within the past 12 months, did the food you bought not last and you didn't have the money to get more?: I choose not to answer this question Within the past 12 months, did you worry whether your food would run out before you got money to buy more?: I choose not to answer this question Do you have trouble paying for medicines?: I choose not to answer this question Do you have trouble getting transportation to medical appointments?: I choose not to answer this question Do you have trouble paying your heating and electricity bill?: I choose not to answer this question Do you have trouble taking care of your child, family member or friend?: I choose not to answer this question Do you have trouble with day-to-day activities such as bathing, preparing meals, shopping, managing finances, etc.?: I choose not to answer this question Are you currently unemployed and looking for a job?: I choose not to answer this question Are you interested in more education?: I choose not to answer this question Please select the resources that you would like help with: None Currently or been in a relationship where the following occur: I choose not to answer THRIVE Score: 0 AUDIT C Alcohol Use Questionnaire (AUDIT-C) 1. How often do you have a drink containing alcohol?: Never Total Score: 0 Score Reviewed/Action Taken: No GENNY-7 AMB Questionnaire GENNY-7 Date GENNY - 7 assessed: 11/27/24 Feeling nervous, anxious, or on edge: 0 = Not at all Not being able to stop or control worryin = Not at all Worrying too much about different things: 0 = Not at all Trouble relaxin = Not at all Being so restless that it is hard to sit still: 0 = Not at all Becoming easily annoyed or irritable: 0 = Not at all Feeling afraid as if something awful might happen: 0 = Not at all Total GENNY-7 score (0-4 normal; 5-9 mild; 10-14 moderate; 15-21 severe): 0 Source: Developed by Drs. Kai Mejia, Jade Cheng, Neil Gannon and colleagues, with an educational phil from [employer]. GENNY-7 Assessment Billing GENNY-7 Assessment Tool: GENNY-7 Assessment 60636 Review of Systems Const All systems reviewed & are unremarkable except as noted in HPI and below Card Denies chest pain at rest, Denies chest pain with activity, Denies edema, Denies irregular heart rhythm, Denies claudication, Denies dyspnea, Denies dyspnea on exertion, Denies orthopnea, Denies paroxysmal nocturnal dyspnea and Denies slow heart rate Resp Denies cough, Denies dyspnea and Denies dyspnea on exertion GI Denies abdominal pain, Denies change in bowel habits, Denies excessive flatus, Denies nausea and Denies vomiting Physical exam (Primary Care) Vital Signs: Last Vital Signs BP 120/70 01/22/25 09:14 BMI result Body Mass Index 31.5 BMI Assessment/Plan discussion: High BMI High, discussed plan: lifestyle, weight reduction, dietary and physical activity Tobacco/Smoking Status: Tobacco use Status Tobacco use date assessed 11/27/24 01/22/25 09:19 Patient Tobacco Use Status Former Tobacco user 01/22/25 09:40 Tobacco use type Cigarette 01/22/25 09:40 e-Cigarette/Vaping Use Never Used 01/22/25 09:40 PHQ-9: PHQ-9 Score PHQ-9: Total score 0 01/22/25 09:41 Depression Screening Interpretation: Negative Thrive Assessment: Date of Thrive Assessment Date Thrive assessed 11/27/24 01/22/25 09:19 Currently or been in a relationship where the following occur: I choose not to answer HENPR Head: Yes normal to inspection, Yes normocephalic and Yes atraumatic Ears: external ears normal Eyes General: appearance normal, both eyes and all related structures Eyelids: Yes eyelids normal Conjunctivae: conjunctivae normal Neck Neck: Yes normal visual inspection and Yes supple Resp Effort & Inspection: normal respiratory effort Auscultation: clear to auscultation bilaterally Cardio Jugular venous distension: no JVD Rate: regular rate Rhythm: regular rhythm Heart sounds: S1 normal heart sound present and S2 normal heart sound present GI Inspection: Yes normal to inspection Palpation (GI): Soft to palpation and nontender Auscultation: normal bowel sounds Skin General skin exam: no rashes or lesions noted Neuro General: no focal motor deficits Extrem General: Yes full ROM Psych Appearance: grossly normal Coding Level of Care Code Est Pt Prev Care >65y(65611) Diagnoses Physical exam Z00.00 Paroxysmal atrial flutter I48.92 Mild recurrent major depression F33.0 Asthma-COPD overlap syndrome J44.9 Right hemiplegia G81.91 Rheumatoid arthritis involving multiple sites with positive rheumatoid factor M05.79 Rheumatoid arthritis location: multiple sites Rheumatoid factor presence: with rheumatoid factor Additional Codes GENNY-7 Assessment Billing - GENNY-7 Assessment Tool: GENNY-7 Assessment 56341 ([id number]) PHQ-9 - 73935 - PHQ-9 Billing: Yes ([id number]) Time Spent (min) 30 Assessment & Plan Assessment & Plan (1) Physical exam: Code(s): Z00.00 - Encounter for general adult medical examination without abnormal findings Category: Medical (2) Paroxysmal atrial flutter: Code(s): I48.92 - Unspecified atrial flutter Category: Medical (3) Mild recurrent major depression: Code(s): F33.0 - Major depressive disorder, recurrent, mild Category: Medical (4) Asthma-COPD overlap syndrome: Code(s): J44.9 - Chronic obstructive pulmonary disease, unspecified Category: Medical (5) Right hemiplegia: Onset Date: ~2016 Code(s): G81.91 - Hemiplegia, unspecified affecting right dominant side Category: Medical (6) Rheumatoid arthritis: Comment: ++RF +++CCP On Humira from February 2019 to March 2021-discontinued due to congestive heart failure. Orencia started April 2021- present Methotrexate 2018- February 2022 discontinued due to interstitial lung disease Leflunomide added 01/2024 Code(s): M06.9 - Rheumatoid arthritis, unspecified Category: Medical Qualifiers: Rheumatoid arthritis location: multiple sites Rheumatoid factor presence: with rheumatoid factor Qualified Code(s): M05.79 - Rheumatoid arthritis with rheumatoid factor of multiple sites without organ or systems involvement Plan The annual physical focused on assessing chronic conditions, ensuring all were managed adequately, including rheumatoid arthritis, osteoporosis, atrial flutter, COPD, and depression. Orencia and the osteoporosis monitoring were confirmed effective. Atrial flutter remains stable on Xarelto, with COPD controlled by Atrovent and Incruse. Depression is well-maintained with Sertraline. Health maintenance is up-to-date with recent mammography and vaccinations. A colonoscopy is planned for February. She will continue all current medications with continued monitoring. Patient was informed and verbally consented to the use of an ambient scribe for clinic note documentation during this visit. During the visit, I reviewed with the patient her current management regimen for rheumatoid arthritis, osteoporosis, atrial flutter, COPD, and depression, emphasizing the importance of adherence to her prescribed medications. We discussed the significance of up-to-date health maintenance, including mammograms, vaccinations, and upcoming colonoscopy for preventive care. The patient is aware that continued abstinence from smoking and moderation in alcohol consumption are beneficial to her health. Future follow-ups will focus on ongoing medication efficiency and adjusting dosages, if necessary. Orders: Referrals Open Access Screening Colonoscopy Referral Z12.12 - Encounter for screening for malignant neoplasm of rectum Medications: Changed From acetaminophen ER 650 mg PO Q6H PRN for pain To acetaminophen ER 650 mg PO Q6H PRN 120 tabs 11RF for pain 30 days From pantoprazole take one tablet half an hour before breakfast 40 mg PO DAILY 30 tabs 3RF K21.9 - Gastro-esophageal reflux disease without esophagitis To pantoprazole take one tablet half an hour before breakfast 40 mg PO DAILY 90 tabs 1RF 90 days K21.9 - Gastro-esophageal reflux disease without esophagitis From gabapentin 600 mg PO BID 30 days PRN 60 tabs 4RF Pain To gabapentin 600 mg PO BID PRN 180 tabs 1RF Pain 90 days Refilled sertraline 25 mg PO DAILY 90 tabs 0RF 90 days atorvastatin 40 mg PO BEDTIME 90 tabs 3RF metoprolol succinate ER 50 mg See Protocol PO BID 180 tabs 3RF rivaroxaban (Xarelto) 20 mg PO DAILY 90 tabs 2RF spironolactone 25 mg See Protocol PO DAILY 90 tabs 0RF 90 days Patient Instructions: - Continue taking prescribed medications regularly. - Maintain current lifestyle habits for optimal health. - Prepare for the colonoscopy scheduled in February. - Reach out if symptoms related to any chronic condition worsen.
[2025-01-22 09:14] VITALS: BP 120/70; BMI 31.5
== END 2025-01-22 09:50 | disposition home or self-care (01) ==
LOC: HO.HMCH 08:58
PROVIDERS: PCP Internal Medicine; Visit Provider Internal Medicine
DX: Z00.00 Encounter for general adult medical examination without abnormal findings (principal); I48.92 Unspecified atrial flutter; F33.0 Major depressive disorder, recurrent, mild; J44.9 Chronic obstructive pulmonary disease, unspecified; G81.91 Hemiplegia, unspecified affecting right dominant side; M05.79 Rheumatoid arthritis with rheumatoid factor of multiple sites without organ or systems involvement

== ENCOUNTER → 2025-01-22 08:57 | Outpatient (BNVA) | payer OTHER, SELFPAY | PROVIDERS: PCP Internal Medicine; Visit Provider Internal Medicine | DX: Z00.00 Encounter for general adult medical examination without abnormal findings (principal); I48.92 Unspecified atrial flutter; F33.0 Major depressive disorder, recurrent, mild; J44.9 Chronic obstructive pulmonary disease, unspecified; G81.91 Hemiplegia, unspecified affecting right dominant side; M05.79 Rheumatoid arthritis with rheumatoid factor of multiple sites without organ or systems involvement | CPT/HCPCS: 96127; 99397 ==

== ENCOUNTER 2025-01-27 08:50 | Outpatient (AMB) | payer OTHER, SELFPAY ==
[2025-01-27 09:01] VITALS: BP 118/70; PULSE 68; O2SAT 96; BMI 31.8
--- NOTE | 2025-01-27 09:01 | MHC.OFFVIS ---
Vital Signs 01/27/25 09:01 Height 4 ft 11 in Weight 157 lb 10.088 oz BMI 31.8 BP 118/70 Blood Pressure Location Rt brachial Position Sitting Pulse 68 Pulse Source Pulse Oximeter Pulse Oximetry (%) 96 Oxygen Delivery Method Room Air Intake Visit Reasons: Asthma Allergies No Known Allergies [No Known Allergies*] Allergy (Verified 01/22/25 09:36) HPI Comments Details: The patient is a 69-year-old woman with a known history of cardiovascular disease, RA with worsening respiratory symptoms. She was evaluated in the ER with evidence of airspace disease and pneumonitis. It was not clear if it was medication related. She does a history of rheumatoid arthritis and has been on immunomodulator therapy both with methotrexate and has been on TNF inhibitors. the patient was placed on a prednisone taper. She also required oxygen. She was discharged on oxygen. Today during the visit she is staying that she is feeling better and she is not using the oxygen. Therefore we did go for 6 minutes walk test in the patient did well her Peterson dyspnea score was 3/10 and she was able to maintain a pulse ox of 93-94% with activity. Therefore the patient does not require oxygen supplementation at this time. She also had a hard time with the oxygen via her CPAP. At this point she is going to sleep without it and when she comes back from her trip to [place] will go ahead and perform an overnight oximetry. I personally reviewed her chest x-rays. She had an x-ray today demonstrating interval improvement of the ground-glass opacities in the fluffy opacities suggesting improvement of the pneumonitis. Patient has been taking prednisone currently finishing up 30 mg in will be tapering down to 20. she has a trip planned to go to [place] when she will be there for Most of the month of May. Therefore, will have her continue on 10 mg of prednisone and will repeat her x-ray when she returns. In the meantime is not clear if this was a medication related issue but unfortunately methotrexate is also a potential culprit. I will request blood work. The patient be traveling to [place] and right now she really does need the oxygen unless her condition worsens again. 02/17/2022 the patient is having worsening shortness of breath. Mainly with activity. Moderate severity. She also has a nonproductive cough. Has not taking any medications for this. She is to have oxygen but then she was no longer using it. She also has a CPAP that has been very helpful for her. However she does need to have a repeat study to get reactivated with a [employer] company. She did have a sleep study ordered and she was called at home. However, is not clear why she did not follow through with sleep study. At this point though she is having worsening breathing symptoms. She continues on the methotrexate she is also on amiodarone. She did have a chest x-ray demonstrating interval worsening of the airspace disease. I will request a CT scan of the chest at this time. Depending on the findings we have to re-evaluate her medications that potentially could result in pulmonary toxicity. during the office visit we did take it for a walking oximetry. The patient did not desaturate to the point of needing oxygen, but, she did decrease to the low 90s. During the ambulation she was found to have audible wheezing. Therefore she completed the 6 minute walk test and had a breathing treatment. She did feel better after the breathing treatment. We will start her on nebulized therapy at this time. 04/21/2022 the patient is here for a pulmonary follow-up visit. Overall the patient states that her breathing is better. She is having some difficulties tolerating the prednisone. In addition to that since stopping the methotrexate she has been having increasing joint pains. She is on Orencia now. She also was taken off the Amiodarone. The patient has not had any recent imaging studies. We need to follow-up with her pneumonitis. I am hopeful that it was stabilized. If she continues to have significant pneumonitis then consider a diagnostic intervention. 06/08/2022 the patient is here for a pulmonary follow-up visit. She continues to improve. She is less short of breath. She still getting some shortness of breath with activity however. The patient is not on any oxygen. She did not qualify during the last visit and she is doing well now. She did start the biologic therapy. She has been off the amiodarone and methotrexate. She continues to be on a small dose of prednisone. The patient is hoping to come off the prednisone due to her uncontrolled diabetes. She did have a chest x-ray that I personally reviewed. It appears as some of the upper lung zone reticular nodular opacities have improved. She still has some basilar changes. This could be vascular congestion versus interstitial lung disease. The patient will be weaned off the prednisone. However, if she develops any worsening symptoms then she is to call the office so we can re-evaluate. The patient will return in 2 months time to the point will repeat her CT scan to assess her interstitial lung disease and see if she needs additional prednisone. 08/11/2022 the patient is here for a pulmonary follow-up visit. Overall the patient has been doing relatively well. She has been off the amiodarone and also the methotrexate. She is also continued on a small dose of prednisone for her pneumonitis. Will go and repeat a chest x-ray to address her progress. Clinically the patient is doing well. Denies any worsening shortness of breath denies any cough. She is done with pain of her wrist and also the arm. It appears that she has some nerve entrapment will need surgery. A small pulmonary standpoint the patient is doing better and may able to proceed with surgery with anesthesia at this time. In the meantime will also maximize her respiratory therapy by starting her on maintenance inhalers the provided with best the capacity for her surgical intervention. 12/18/2022 the patient is here for a pulmonary follow-up visit. The patient overall is doing about same. Complains of dyspnea on exertion. She also has a dry cough. Explained to the patient that she does have underlying pulmonary fibrosis. At this time she is off the potential offending agents. Although her connective tissue disease could resulting interval progression of the interstitial lung disease. Based on her x-rays there is an appear to be any significant progression. She will undergo a chest x-ray today as well. She also did undergo a 6 minutes walk test and she did very well actually improving her pulse ox when ambulating. Please from a respiratory status the patient is doing well. She has not had her surgery yet. from a pulmonary standpoint the patient does have some increased risk for perioperative pulmonary complications but she has this time medically maximized from a pulmonary standpoint he may pursue surgery. 05/07/2024 the patient is here for a pulmonary follow-up visit. He has been awhile since we last saw her. She is doing fairly well. She did have her surgery at some point in still having issue with the hand however. The patient complains of dyspnea on exertion. [id number] severity. Specially when going up a flight of stairs or an incline. She does not have any inhalers at this time. We did talk about her cardiac history she has issues with tachyarrhythmias in atrial fibrillation. Therefore it has important not to give her anything does can have caused her to have significant cardiac interactions. She has been admitted to the hospital few times. She did have a chest x-ray which I personally reviewed demonstrating no evidence of any interstitial lung disease. She had interstitial lung disease in the past with pneumonitis likely secondary to medications. She has been a lot better since she has been off the amiodarone methotrexate. Therefore will hold off on any imaging studies at this time. The patient will start Incruse to try to improve her respiratory capacity. We did go for brief walking oximetry in her pulse ox was 96% throughout the walk which is reassuring. 08/05/2024 the patient is here for a pulmonary follow-up visit. Overall doing well. She did not use the Incruse and uses she is concerned about tachyarrhythmias. She already has a history atrial fibrillation. She does feel palpitations when she uses them. I did try to encourage her that the Incruse will not give her any issues. Although, she really needs more rescue inhaler then a maintenance inhalers and she does not use it regularly. Therefore I will send her Atrovent HFA that she can use as needed comfortably that is not going to affect her heart. We also did talk about her underlying pulmonary issues. We did look at a CT scan that she had back in 2021 demonstrating evidence of interstitial lung disease with pneumonitis. She also has some degree of emphysema. The patient did subsequently have a chest x-ray back in 03/01/2024 demonstrating stable disease without any significant parenchymal disease that I can appreciate. Seems to be stable. Will plan to repeat the chest x-ray in the next 6 months or so. Otherwise will go ahead and send a rescue inhaler, CHRISTA. 01/27/2025 the patient is here for pulmonary follow-up visit. Overall she is doing okay. Seems to be tolerating the ipratropium HFA well for her breathing. Does not affect her heart and she does using does not feel too heavy on her chest. Therefore she does use it as needed. Her asthma has been under control and has not required any prednisone which is reassuring. She does have significant arthritic 80s because of rheumatoid arthritis. Although she has been on good maintenance medications for that. We did look at her last chest x-ray demonstrating some interstitial disease. Although she was supposed to have a repeat chest x-ray and she has not as of yet. I will put on order rim in order for her to get an x-ray before her next visit in 6 months. If she has any worsening symptoms prior to this she will call for an earlier assessment. [facility] Medical History (Updated 01/22/25 @ 11:50 by Dafne Pollard MD) Encounter for monitoring denosumab therapy Osteoarthritis of left shoulder History of cardiac monitoring Diastolic heart failure Rheumatoid arthritis flare Abdominal discomfort Left shoulder pain Right wrist pain Right shoulder pain Obesity (BMI 30-39.9) Preoperative clearance Abnormal chest x-ray Obesity Pneumonitis Breast pain, left Diastolic dysfunction Pre-op chest exam Osteoarthritis of shoulders, bilateral Asthma-COPD overlap syndrome Personal history of nicotine dependence History of CVA (cerebrovascular accident) (~2017) ILD (interstitial lung disease) Post-menopausal Hypoxia Seropositive rheumatoid arthritis Right hemiplegia (~2017) Chronic anticoagulation GERD (gastroesophageal reflux disease) Rheumatoid arthritis Obstructive sleep apnea on CPAP Essential hypertension Paroxysmal atrial fibrillation (~2017) Pure hypercholesterolemia Surgical History History of appendectomy History of foot surgery History of shoulder surgery Family History Father No problems noted. Mother No problems noted. Brother Stomach cancer Social History (Updated 01/22/25 @ 09:40 by Dafne Pollard MD) Household Members: None Housing: Apartment Do you presently have visiting nurse or other home services: No Alcohol intake: current Alcohol intake frequency: holidays/special occasions only Alcohol type: wine Patient Tobacco Use Status: Former Tobacco user Tobacco use type: Cigarette Years Smoked: 20 years e-Cigarette/Vaping Use: Never Used Second Hand Smoke Exposure: No service: No Current occupational status: retired Cognitive needs: No Hearing needs: Yes Vision needs: No Review of Systems Const Denies chills, Denies fatigue and Denies fever(s) ENT Denies dizziness Card Denies chest pain, Denies leg edema, Denies lightheadedness, Denies palpitations, Reports dyspnea on exertion, Denies orthopnea and Denies other (loss of consciousness) Resp Reports cough and Reports dyspnea on exertion GI Denies hematochezia and Denies change in stool character Musc Denies abnormal gait, Reports myalgias, Reports arthralgias, Denies muscle weakness, Denies numbness, Denies radiating pain into limb and Denies tingling Neuro Denies abnormal gait, Denies dizziness, Denies numbness and Denies tingling Endo Denies fatigue and Denies palpitations Physical Exam Vital Signs: Last Vital Signs Pulse 68 01/27/25 09:01 BP 118/70 01/27/25 09:01 Pulse Ox 96 01/27/25 09:01 Oxygen Delivery Method Room Air 01/27/25 09:01 BMI result Body Mass Index 31.8 Const General: alert Neck Neck: Yes normal visual inspection, Yes full ROM and Yes no lymphadenopathy Chest Chest palpation & inspection: normal inspection of the chest Resp Auscultation: no rales, no wheezes and diminished lung sounds Cardio Rate: regular rate Rhythm: regular rhythm Heart sounds: S1 normal heart sound present and S2 normal heart sound present GI Palpation (GI): Soft to palpation and nontender Auscultation: normal bowel sounds General: Yes no CVA tenderness Back/Spine/Pelvis Back: no CVA tenderness Skin General skin exam: rashes and/or lesions noted Assessment & Plan Assessment & Plan (1) Asthma-COPD overlap syndrome: Code(s): J44.9 - Chronic obstructive pulmonary disease, unspecified Category: Medical Plan: Stable at present (2) Pneumonitis: Comment: Etiology is not clear. Possibly medication related. Although CTD related ILD is also possible. Code(s): J18.9 - Pneumonia, unspecified organism Category: Medical (3) Rheumatoid arthritis: Comment: ++RF +++CCP On Humira from February 2019 to March 2021-discontinued due to congestive heart failure. Orencia started April 2021- present Methotrexate 2018- February 2022 discontinued due to interstitial lung disease Leflunomide added 01/2024 Code(s): M06.9 - Rheumatoid arthritis, unspecified Category: Medical Qualifiers: Rheumatoid arthritis location: multiple sites Rheumatoid factor presence: with rheumatoid factor Qualified Code(s): M05.79 - Rheumatoid arthritis with rheumatoid factor of multiple sites without organ or systems involvement Plan continue Atrovent HFA as needed CXR in 6 months F/U 6 months Orders: Orders XR chest 2V Today J44.9 - Chronic obstructive pulmonary disease, unspecified Coding Level of Care Code Est Pt Level 4 (97355) Complex EM visit Add On G2211 Diagnoses Asthma-COPD overlap syndrome J44.9 Pneumonitis J18.9 Rheumatoid arthritis involving multiple sites with positive rheumatoid factor M05.79 Rheumatoid arthritis location: multiple sites Rheumatoid factor presence: with rheumatoid factor Time Spent (min) 17
--- OUTSIDE RECORDS SUMMARY | 2025-01-27 09:20 | XMS_ITS | Clinical Summary ---
Author Organization [facility] Address [address] [place] [address] Care Team Providers Care Piano Instructor Name Role Phone Provider, Not In System [...] patient's age to complete this topic Insurance [facility] Care Teams Piano Instructor Relationship Specialty Start Date End Date Provider, Not In System PCP - General 10/13/22
== END 2025-01-27 09:29 | disposition home or self-care (01) ==
LOC: HO.HPS 08:51
PROVIDERS: PCP Internal Medicine; Visit Provider Hospitalist
DX: J44.9 Chronic obstructive pulmonary disease, unspecified (principal); J18.9 Pneumonia, unspecified organism; M05.79 Rheumatoid arthritis with rheumatoid factor of multiple sites without organ or systems involvement
CPT/HCPCS: 99214; G2211

== ENCOUNTER → 2025-01-27 08:50 | Outpatient (BNVA) | payer OTHER, SELFPAY | PROVIDERS: PCP Internal Medicine; Visit Provider Hospitalist | DX: J44.9 Chronic obstructive pulmonary disease, unspecified (principal); J18.9 Pneumonia, unspecified organism; M05.79 Rheumatoid arthritis with rheumatoid factor of multiple sites without organ or systems involvement | CPT/HCPCS: 99212 ==

== ENCOUNTER 2025-01-30 09:54 | Outpatient (AMB) | payer OTHER, SELFPAY ==
[2025-01-30 11:18] VITALS: BP 120/68; PULSE 57; O2SAT 97; BMI 31.7
--- NOTE | 2025-01-30 11:18 | MHC.OFFVIS ---
Vital Signs 01/30/25 11:18 Height 4 ft 11 in Weight 156 lb 15.506 oz BMI 31.7 BP 120/68 Blood Pressure Location Lt brachial Position Sitting Pulse 57 Pulse Source Pulse Oximeter Pulse Oximetry (%) 97 Oxygen Delivery Method Room Air Intake Visit Reasons: osteoporosis/RA Intake Note: Patient last seen by Doctor Catie Nguyen on 12/11/24. Presents today for Osteoporosis/RA follow up and X-ray LT shoulder test results. 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 ] diclofenac sodium 1% 4 grams topical QID dofetilide 500 mcg PO Q12H gabapentin 600 mg PO BID PRN 90 days ipratropium bromide 17 mcg/actuation (Atrovent HFA) 2 puffs inhalation Q8H 30 days leflunomide 10 mg PO DAILY metoprolol succinate ER 50 mg See Protocol PO BID nebulizers As directed Orencia ClickJect (abatacept) 125 mg subcut QWEEK NS pantoprazole 40 mg PO DAILY 90 days rivaroxaban (Xarelto) 20 mg PO DAILY sertraline 25 mg PO DAILY 90 days spironolactone 25 mg See Protocol PO DAILY 90 days umeclidinium 62.5 mcg/actuation (Incruse Ellipta) 1 inh inhalation DAILY 30 days HPI Comments Details: Patient is a 69-year-old female with hyperlipidemia, hypertension complicated by CVA and coronary artery disease with subsequent systolic heart failure, paroxysmal atrial flutter/fibrillation on anticoagulation, polyarticular osteoarthritis, and seropositive erosive rheumatoid arthritis here today for follow up Interval History: Patient last seen 12/11/2024 with me. At that time patient was complaining of left shoulder pain and was hoping to get an injection. However since she had a left shoulder replacement she was urged to follow up with her ortho surgeon. Her RA was in remission and she was recommended to stop the prednisone Went to see her orthopedic doctor who recommended surgery but patient does not want any more surgeries. She was able to stop the prednisone without any flares Rheumatologic History: ++RF +++CCP On Humira from February 2019 to March 2021-discontinued due to congestive heart failure. Orencia started April 2021- present Methotrexate 2018- February 2022 discontinued due to interstitial lung disease Leflunomide added 01/2024 Prednisone stopped 11/2024 Current Rheumatology Medication(s): Orencia 125 mg every week SC Leflunomide 10 mg every day [facility] Medical History (Updated 01/22/25 @ 11:50 by Dafne Pollard MD) Encounter for monitoring denosumab therapy Osteoarthritis of left shoulder History of cardiac monitoring Diastolic heart failure Rheumatoid arthritis flare Abdominal discomfort Left shoulder pain Right wrist pain Right shoulder pain Obesity (BMI 30-39.9) Preoperative clearance Abnormal chest x-ray Obesity Pneumonitis Breast pain, left Diastolic dysfunction Pre-op chest exam Osteoarthritis of shoulders, bilateral Asthma-COPD overlap syndrome Personal history of nicotine dependence History of CVA (cerebrovascular accident) (~2016) ILD (interstitial lung disease) Post-menopausal Hypoxia Seropositive rheumatoid arthritis Right hemiplegia (~2016) Chronic anticoagulation GERD (gastroesophageal reflux disease) Rheumatoid arthritis Obstructive sleep apnea on CPAP Essential hypertension Paroxysmal atrial fibrillation (~2016) Pure hypercholesterolemia Surgical History History of appendectomy History of foot surgery History of shoulder surgery Family History Father No problems noted. Mother No problems noted. Brother Stomach cancer Social History (Updated 01/22/25 @ 09:40 by Dafne Pollard MD) Household Members: None Housing: Apartment Do you presently have visiting nurse or other home services: No Alcohol intake: current Alcohol intake frequency: holidays/special occasions only Alcohol type: wine Patient Tobacco Use Status: Former Tobacco user Tobacco use type: Cigarette Years Smoked: 20 years e-Cigarette/Vaping Use: Never Used Second Hand Smoke Exposure: No service: No Current occupational status: retired Cognitive needs: No Hearing needs: Yes Vision needs: No Review of Systems Const Details: Review of Systems Constitutional: Denies fever, chills, weight loss ENT: Denies vision changes, eye pain or eye redness, dental caries, dry mouth GI: Denies nausea, vomiting, diarrhea, abdominal pain, change in BM Pulm: Denies SOB, LEDESMA, hemoptysis, wheezing Cards: Denies chest pain, palpitations Skin: Denies Raynaud's, rash, nail changes, photosensitivity, CHIEF 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 Well appearing and in no apparent painful distress HEENT Conjunctiva and sclera clear. ?Pupils equal round and reactive to light. ?No lymphadenopathy. ? CHEST/RESPIRATORY SYSTEM Normal respiratory effort and able to speak in complete sentences. ?Clear to auscultation bilaterally. ?No crackles, rales, rhonchi, wheezes heard. CARDIAC SYSTEM Regular rate and rhythm. ?S1 and S2 heard no murmurs. 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 No deformities noted. ?No synovitis noted to the MCPs, PIPs or DIPs. ?Patient has swan-neck deformities involving the 2nd and 3rd digits of bilateral hands. Heberden's nodes noted. Weakness noted to the right side which is consistent with her residual right-sided hemiplegia from her CVA in 2017 Wrists: ?Full range of motion at the wrists without pain. ?No tenderness to palpation or synovitis noted to the wrists. Elbows: Full range of motion without pain. No tenderness, weakness, swelling, increased warmth or erythema. Shoulders: Decreased range of motion to the left shoulder with scar noted over the anterior shoulder indicating previous surgery. Tenderness to palpation of the AC joint and posterior shoulder joint. Right shoulder with good active and passive range of motion no tenderness to palpation of the AC joint or the posterior glenohumeral joints. Hips: Full range of motion without pain. Hip bursa: No tenderness to palpation Knees: ?Full range of motion. ?No tenderness, swelling, increased warmth or erythema.?No effusion or crepitations Ankles: Full range of motion. ?No tenderness, swelling, increased warmth or erythema.? Feet: ?Negative squeeze test. ?No tenderness to palpation or swelling of the MTPs. Tender points:?No tenderness to palpation of the bilateral trapezius, supraspinatus, greater trochanters, anterior costochondral junctions, bilateral gluteal areas, bilateral suboccipital muscle insertions SKIN Skin intact without rashes. Results Reviewed Results Reviewed: Laboratory Tests 12/09/18 08/29/24 12/01/24 08:50 10:52 08:06 WBC 6.9 RBC 4.55 Hgb 12.2 Hct 39.2 Plt Count 163 ESR 67 H 73 H Sodium 143 Potassium 4.1 Chloride 112 H Carbon Dioxide 23 BUN 13 Creatinine 0.66 Estimated GFR > 60 AST 24 ALT 14 Alkaline Phosphatase 54 C-Reactive Protein 1.02 H Total Protein 8.1 H Albumin 4.1 25-OH Vitamin D Total 37 Rheumatoid Factor 1013.0 H Cycl Citrul Peptide IgG >250 H Hepatitis A IgM Ab Nonreactive Hep Bs Antigen Negative Hep Bs Antibody NONREACTIVE Hep B Core Total Ab Nonreactive Hepatitis C Ab (EIA) Nonreactive TB Test (T-Spot) Com Negative XR Left Shoulder 11/2024 FINDINGS: There is reversed total left shoulder prosthesis. The prosthetic components are in alignment. There is no periprosthetic loosening or fracture seen. Impression: Total reversed left shoulder prosthesis in satisfactory alignment. No periprosthetic loosening Assessment & Plan Assessment & Plan (1) Rheumatoid arthritis: Comment: ++RF +++CCP On Humira from February 2019 to March 2021-discontinued due to congestive heart failure. Orencia started April 2021- present Methotrexate 2018- February 2022 discontinued due to interstitial lung disease Leflunomide added 01/2024 Code(s): M06.9 - Rheumatoid arthritis, unspecified Category: Medical Qualifiers: Rheumatoid arthritis location: multiple sites Rheumatoid factor presence: with rheumatoid factor Qualified Code(s): M05.79 - Rheumatoid arthritis with rheumatoid factor of multiple sites without organ or systems involvement Plan: #Seropositive Erosive RA Patient is a 69-year-old female with seropositive erosive rheumatoid arthritis. Currently on Orencia and leflunomide. No evidence of synovitis today. Doing well off prednisone. Plan - Orencia 125mg SC every week - Leflunomide 10mg PO daily - RTC 4 months - Labs before next visit: CBC, CMP, ESR, CRP, hepatitis panel, t spot (2) Osteoarthritis of left shoulder: Code(s): M19.012 - Primary osteoarthritis, left shoulder Category: Medical Qualifiers: Osteoarthritis type: primary Qualified Code(s): M19.012 - Primary osteoarthritis, left shoulder Plan: #OA left shoulder Patient with osteoarthritis to the left shoulder status post replacement. Scheduled with ortho for injection Plan - Ortho for follow up - Topical diclofenac 1% qid (3) Osteoporosis: Comment: DEXA 12/2023. Left femur neck -2.3, Left femur total -1.4, AP spine -2.6 Prolia started 01/19/2023 Code(s): M81.0 - Age-related osteoporosis without current pathological fracture Category: Medical Qualifiers: Osteoporosis type: age-related Presence of current pathological fracture: without current pathological fracture Qualified Code(s): M81.0 - Age-related osteoporosis without current pathological fracture Plan: #Osteoporosis without history of fracture Patient with osteoporosis without history of fracture. 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 immunomodulators and immunosuppressants Category: Medical Plan: #Long-term Use of Orencia Discussed with the patient the benefits and risks of Orencia (abatacept) for the management of the rheumatic condition Benefits include reduce pain, maintenance of remission and reduction of flares as well as ?progression of the disease Risks include injection sites/infusion reactions, increased risk of infections, liver problems, heart failure and cancer (rare) (5) Encounter for monitoring denosumab therapy: Code(s): Z51.81 - Encounter for therapeutic drug level monitoring; Z79.620 - 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 Mild increased risk of infections due to RANKL on T helper cells, increased risk of hypocalcemia especially in CKD patients Keep vitamin-D at least 35 ng/mL Advised to delay non emergent dental procedures to toward the end of the 6 month cycle and if they plan to stop denosumab would need to continue antiresorptive to maintain the effects of denosumabe Plan I spent 30 minutes reviewing the record and labs, taking a history using the quill picking machine operator, examining the patient, discussing the treatment plan and documenting in the medical record Orders: Orders Complete Blood Count Auto Diff 4 Months - Rheumatoid arthritis with rheumatoid factor of multiple sites without organ or systems involvement C Reactive Protein 4 Months . - Rheumatoid arthritis with rheumatoid factor of multiple sites without organ or systems involvement Erythrocyte Sedimentation Rate 4 Months - Rheumatoid arthritis with rheumatoid factor of multiple sites without organ or systems involvement Hepatitis A,B,C Profile 4 Months . - Rheumatoid arthritis with rheumatoid factor of multiple sites without organ or systems involvement Comprehensive Met. Panel 4 Months - Rheumatoid arthritis with rheumatoid factor of multiple sites without organ or systems involvement T Spot TB 4 Months . - Rheumatoid arthritis with rheumatoid factor of multiple sites without organ or systems involvement Vitamin D 25-OH (D2 and D3) Today E55.9 - Vitamin D deficiency, unspecified Medications: Refilled Orencia ClickJect (abatacept) 125 mg subcut QWEEK 4 mL 3RF NS leflunomide 10 mg PO DAILY 90 tabs 1RF M06.9 - Rheumatoid arthritis, unspecified Coding Level of Care Code Est Pt Level 4 (56387) Complex EM visit Add On G2211 Diagnoses Rheumatoid arthritis involving multiple sites with positive rheumatoid factor Rheumatoid arthritis location: multiple sites Rheumatoid factor presence: with rheumatoid factor Primary osteoarthritis of left shoulder M19.012 Osteoarthritis type: primary Age-related osteoporosis without current pathological fracture M81.0 Osteoporosis type: age-related Presence of current pathological fracture: without current pathological fracture Long-term use of immunosuppressant medication Z79.60 Encounter for monitoring denosumab therapy Z51.81; Z79.620
--- OUTSIDE RECORDS SUMMARY | 2025-01-30 11:33 | XMS_ITS | Clinical Summary ---
Author Organization [employer] [facility] Address [address] [place] [address] Care Team Providers Care Energy Operations Vice President Name Role Phone Provider, Not In System [...] patient's age to complete this topic Insurance [facility] ADV Care Teams Energy Operations Vice President Relationship Specialty Start Date End Date Provider, Not In System PCP - General 10/13/22
== END 2025-01-30 12:07 | disposition home or self-care (01) ==
PROVIDERS: PCP Internal Medicine; Visit Provider Student in an Organized Health Care Education/Training Program
DX: M05.79 Rheumatoid arthritis with rheumatoid factor of multiple sites without organ or systems involvement (principal); M19.012 Primary osteoarthritis, left shoulder; M81.0 Age-related osteoporosis without current pathological fracture; Z79.60 Long term (current) use of unspecified immunomodulators and immunosuppressants; Z51.81 Encounter for therapeutic drug level monitoring; Z79.620 Long term (current) use of immunosuppressive biologic
CPT/HCPCS: 99214; G2211

== ENCOUNTER → 2025-01-30 09:54 | Outpatient (BNVA) | payer OTHER, SELFPAY | PROVIDERS: PCP Internal Medicine; Visit Provider Student in an Organized Health Care Education/Training Program | DX: M05.79 Rheumatoid arthritis with rheumatoid factor of multiple sites without organ or systems involvement (principal); M19.012 Primary osteoarthritis, left shoulder; M81.0 Age-related osteoporosis without current pathological fracture; Z79.60 Long term (current) use of unspecified immunomodulators and immunosuppressants; Z51.81 Encounter for therapeutic drug level monitoring; Z79.620 Long term (current) use of immunosuppressive biologic | CPT/HCPCS: 99212 ==

== ENCOUNTER 2025-02-02 09:15 | Outpatient (AMB) | payer OTHER, SELFPAY ==
--- NOTE | 2025-02-02 09:32 | A.OFFVIS_ITS ---
Vital Signs 02/02/25 09:33 Height 4 ft 11 in Weight 157 lb 6.561 oz BMI 31.8 BP 114/60 Blood Pressure Location Rt brachial Position Sitting Pulse 64 Pulse Source Pulse Oximeter Pulse Oximetry (%) 97 Oxygen Delivery Method Room Air Intake Visit Reasons: 3 month follow up Intake Note: ESTABLISHED PATIENT for mgmt of GERD w/ dysphagia. Labs done, imaging ordered bu t outstanding. Currently being recoordinated with CS. Chief Complaint; Pt reports that sx have been well controlled with PPI since starting the Rx after last visit. Pt reports she is going to need 90 day refill since she is going to be going to [place] for extended period of time. Rewards Consultant Required: Yes Rewards Consultant Services: Rewards Consultant Present Rewards Consultant Name: Jenaro [id number] + [facility] [place] Information Interpreted: clinical only Accompanied by: Self / Same As Patient Allergies No Known Allergies [No Known Allergies*] Allergy (Verified 02/05/25 08:55) HPI HPI 3 month follow up: Details: LAST VISIT: Chronic GERD Dysphagia Postprandial abdominal bloating Plan Will order upper GI with barium swallow to rule out Schatzki ring, esophageal dysmotility, esophageal narrowing. Patient will start taking pantoprazole daily. Avoid dietary triggers and late night snacking. Possible patient might have eosinophilic esophagitis that could be contributing to her dysphagia. Patient was educated that she must rinse her mouth well each time she uses her inhaler. Patient reports also pain in her upper abdomen will check liver enzymes. Check vitamin B12, folate vitamin-D level. Patient will return to the office in 3 months to discuss labs and upper GI series with barium swallow. She is agreeable to this plan and verbalizes understanding of instructions. She was given the opportunity to ask questions and all questions answered. ? Thank you for allowing me to participate in her care Orders Orders Liver Panel 11/03/24 R74.01 FL upper GI w Ba Swallow 11/03/24 K21.9 Vitamin B12 and Folate 11/03/24 R19.7 Vitamin D 25-OH (D2 and D3) 11/03/24 E55.9 Medications New pantoprazole take one tablet half an hour before breakfast 40 mg PO DAILY 30 tabs 3RF K21.9 TODAY'S VISIT Patient is here today for follow-up. Patient reports that she has been doing well since last visit. Patient states that she takes pantoprazole in the morning and her symptoms of acid reflux are well suppressed. Patient denies any dyspepsia, dysphagia or odynophagia. Denies melena, hematochezia, unintentional weight loss or ribbon like stools. Patient is due to go for colonoscopy and upper endoscopy, however has not followed up with her chief concierge. Patient was supposed to be seen last year. Will walk her over today so she can make an appointment. Patient denies cardiac or respiratory symptoms. No issues with anesthesia in the past. Patient is on Xarelto for AFib. History of sleep apnea, on CPAP [facility] Medical History Encounter for monitoring denosumab therapy Osteoarthritis of left shoulder History of cardiac monitoring Diastolic heart failure Rheumatoid arthritis flare Abdominal discomfort Left shoulder pain Right wrist pain Right shoulder pain Obesity (BMI 30-39.9) Preoperative clearance Abnormal chest x-ray Obesity Pneumonitis Breast pain, left Diastolic dysfunction Pre-op chest exam Osteoarthritis of shoulders, bilateral Asthma-COPD overlap syndrome Personal history of nicotine dependence History of CVA (cerebrovascular accident) (~2017) ILD (interstitial lung disease) Post-menopausal Hypoxia Seropositive rheumatoid arthritis Right hemiplegia (~2017) Chronic anticoagulation GERD (gastroesophageal reflux disease) Rheumatoid arthritis Obstructive sleep apnea on CPAP Essential hypertension Paroxysmal atrial fibrillation (~2017) Pure hypercholesterolemia Surgical History Cataract History of appendectomy History of foot surgery History of shoulder surgery Family History Father No problems noted. Mother No problems noted. Brother Stomach cancer Social History Household Members: None Housing: Apartment Do you presently have visiting nurse or other home services: No Alcohol intake: current Alcohol intake frequency: holidays/special occasions only Alcohol type: wine Patient Tobacco Use Status: Former Tobacco user Tobacco use type: Cigarette Years Smoked: 20 years e-Cigarette/Vaping Use: Never Used Second Hand Smoke Exposure: No service: No Current occupational status: retired Cognitive needs: No Hearing needs: Yes Vision needs: No Review of Systems Const Denies weight gain and Denies weight loss ENT Reports no additional complaints, Denies dysphagia and Denies odynophagia Card Reports no additional complaints Resp Reports no additional complaints GI Denies abdominal pain, Denies belching, Denies melena, Denies bloating, Denies change in bowel habits, Denies dysphagia, Denies excessive flatus, Denies dyspepsia, Denies heartburn, Denies diarrhea, Denies loose stools, Denies nausea, Denies odynophagia and Denies vomiting Reports no additional complaints Musc Reports no additional complaints Neuro Reports no additional complaints Psych Reports no additional complaints Endo Reports no additional complaints Physical Exam Vital Signs: Last Vital Signs Pulse 64 02/02/25 09:33 BP 114/60 02/02/25 09:33 Pulse Ox 97 02/02/25 09:33 Oxygen Delivery Method Room Air 02/02/25 09:33 BMI result Body Mass Index 31.8 Const General: healthy appearing and no acute distress Nutritional Appearance: obese Orientation/consciousness: patient oriented x3 Resp Effort & Inspection: normal respiratory effort, able to speak in complete sentences, no tracheal deviation and symmetric chest movement Auscultation: clear to auscultation bilaterally Cardio Rate: regular rate GI Inspection: Yes normal to inspection, No distended and Yes obesity Palpation (GI): Soft to palpation, not firm, nontender and No hepatosplenomegaly present Auscultation: normal bowel sounds General: Yes no CVA tenderness Back/Spine/Pelvis Back: no CVA tenderness Skin General skin exam: elasticity normal, turgor normal and dry skin Neuro General: patient oriented x3 Psych Appearance: grossly normal Mental Status: mental status grossly normal Assessment & Plan Assessment & Plan (1) Chronic GERD: Code(s): K21.9 - Gastro-esophageal reflux disease without esophagitis Category: Medical (2) Dysphagia: Code(s): R13.10 - Dysphagia, unspecified Category: Medical Qualifiers: Dysphagia type: unspecified Qualified Code(s): R13.10 - Dysphagia, unspecified (3) Postprandial abdominal bloating: Code(s): R14.0 - Abdominal distension (gaseous) Plan Patient will be sent for upper endoscopy and colonoscopy. Continue pantoprazole daily. Patient has not followed up with her chief concierge in almost a year and was supposed to see them in 3 months according to the last note. Patient will book appointment with Cardiology for clearance. We will see her in 4 months to discuss colonoscopy and endoscopy. Patient will call our office if she will have any GI concerning symptoms. Patient is agreeable to this plan and verbalizes understanding of instructions. She was given the opportunity to ask questions and all questions answered. Thank you for allowing me to participate in her care Medications: Refilled pantoprazole take one tablet half an hour before breakfast 40 mg PO DAILY 90 tabs 2RF 90 days K21.9 - Gastro-esophageal reflux disease without esophagitis Coding Level of Care Code Est Pt Level 3 (35582) Diagnoses Chronic GERD K21.9 Dysphagia, unspecified type R13.10 Dysphagia type: unspecified Postprandial abdominal bloating R14.0 Time Spent (min) 30 Comment 20 minutes spent with patient and additional 10 minutes spent reviewing her records
[2025-02-02 09:33] VITALS: BP 114/60; PULSE 64; O2SAT 97; BMI 31.8
== END 2025-02-02 12:01 | disposition home or self-care (01) ==
LOC: HO.HGI 09:16
PROVIDERS: PCP Internal Medicine; Visit Provider Nurse Practitioner Family
DX: K21.9 Gastro-esophageal reflux disease without esophagitis (principal); R13.10 Dysphagia, unspecified; R14.0 Abdominal distension (gaseous)
CPT/HCPCS: 99213

== ENCOUNTER → 2025-02-02 09:15 | Outpatient (BNVA) | payer OTHER, SELFPAY | PROVIDERS: PCP Internal Medicine; Visit Provider Nurse Practitioner Family | DX: K21.9 Gastro-esophageal reflux disease without esophagitis (principal); R13.10 Dysphagia, unspecified; R14.0 Abdominal distension (gaseous) | CPT/HCPCS: 99212 ==

== ENCOUNTER 2025-02-05 08:53 | Outpatient (AMB) | payer OTHER, SELFPAY ==
--- NOTE | 2025-02-05 08:54 | MHC.OFFVIS ---
Vital Signs 02/05/25 08:55 Height 4 ft 11 in Weight 157 lb 2 oz BMI 31.7 BP 133/68 Blood Pressure Location Lt brachial Position Sitting Pulse 77 Pulse Source Pulse Oximeter Pulse Oximetry (%) 96 Oxygen Delivery Method Room Air Intake Visit Reasons: Presence of left artificial shoulder joint Sewer Pipe Cleaner Required: Yes Sewer Pipe Cleaner Language: Glass Technologist Services: Sewer Pipe Cleaner Present Sewer Pipe Cleaner Name: Tracy([id number]) Allergies No Known Allergies [No Known Allergies*] Allergy (Verified 02/05/25 08:55) HPI Comments Details: Leeanne is very pleasant [place]er-speaking 69 years old female who presents me in my office with complains on pain in the left upper shoulder mid shoulder left arm and left forearm. She reported that 15 years ago she received total reversed left shoulder replacement in [place]. For awhile she experienced improvement however few years ago she started to feel pain in his shoulder. X-rays available and demonstrates significant osteoporosis but no dislodgement and no misalignment of the prosthesis. She reports that she can not sleep normally because of her pain. She reports today pain 10/10. She is retired individual. Movements aggravate her pain. In terms of tissue damage he reports her pain as shooting and radiating experience. She had physical therapy 6-7 months ago in the attempt to make her pain better. She denies any help from physical therapy. She never had any injections. Her past medical history significant for of atrial fibrillation status post ablation on anticoagulation, interstitial lung disease, hypertension, mixed hyperlipidemia, mood disorder, LOW not on CPAP, COPD not on home oxygen, congestive heart failure with preserved EF, rheumatoid arthritis on DMARDS medications. History of AFib with RVR. History of ablation in August 2024 she takes beta-blockers and Xarelto as anticoagulants. She takes Tylenol for pain. She takes Orencia for rheumatoid arthritis. She takes sertraline for anxiety and depression. Her surgical history as described above total reverse total shoulder replacement on the left. She denies smoking cigarettes. She takes alcohol socially. She drinks coffee and caffeinated beverages and she denies recreational drugs. [facility] Medical History Encounter for monitoring denosumab therapy Osteoarthritis of left shoulder History of cardiac monitoring Diastolic heart failure Rheumatoid arthritis flare Abdominal discomfort Left shoulder pain Right wrist pain Right shoulder pain Obesity (BMI 30-39.9) Preoperative clearance Abnormal chest x-ray Obesity Pneumonitis Breast pain, left Diastolic dysfunction Pre-op chest exam Osteoarthritis of shoulders, bilateral Asthma-COPD overlap syndrome Personal history of nicotine dependence History of CVA (cerebrovascular accident) (~2016) ILD (interstitial lung disease) Post-menopausal Hypoxia Seropositive rheumatoid arthritis Right hemiplegia (~2016) Chronic anticoagulation GERD (gastroesophageal reflux disease) Rheumatoid arthritis Obstructive sleep apnea on CPAP Essential hypertension Paroxysmal atrial fibrillation (~2016) Pure hypercholesterolemia Surgical History Cataract History of appendectomy History of foot surgery History of shoulder surgery Family History Father No problems noted. Mother No problems noted. Brother Stomach cancer Social History Household Members: None Housing: Apartment Do you presently have visiting nurse or other home services: No Alcohol intake: current Alcohol intake frequency: holidays/special occasions only Alcohol type: wine Patient Tobacco Use Status: Former Tobacco user Tobacco use type: Cigarette Years Smoked: 20 years e-Cigarette/Vaping Use: Never Used Second Hand Smoke Exposure: No service: No Current occupational status: retired Cognitive needs: No Hearing needs: Yes Vision needs: No Review of Systems Const Reports as per HPI ENT Reports Normal hearing present Card Reports as per HPI Resp Reports as per HPI GI Reports no additional complaints Reports no additional complaints Musc Reports as per HPI Neuro Reports no additional complaints, Reports Normal hearing present, Denies Abnormal speech present, Denies confusion and Denies Sensory deficit (Neuro) Psych Reports as per HPI and Denies confusion Aller/Immun Reports as per HPI Physical Exam Vital Signs: Last Vital Signs Pulse 77 02/05/25 08:55 BP 133/68 02/05/25 08:55 Pulse Ox 96 02/05/25 08:55 Oxygen Delivery Method Room Air 02/05/25 08:55 BMI result Body Mass Index 31.7 Const General: no acute distress; No confusion Nutritional Appearance: obese morbidly obese Orientation/consciousness: patient oriented x3 and No confusion Eyes General: appearance normal, both eyes and all related structures Pupils: Equal, round and reactive pupils present EOM: EOMs intact bilaterally Neck Neck: Yes full ROM Chest Chest palpation & inspection: normal inspection of the chest Resp Effort & Inspection: normal respiratory effort, able to speak in complete sentences, normal respiratory pattern, no audible wheezes and no cough Cardio Jugular venous distension: no JVD GI Inspection: Yes normal to inspection Neuro General: patient oriented x3, gait normal and No confusion Cranial nerves: Yes CN's II-XII intact bilaterally, Yes Equal, round and reactive pupils present, Yes Normal hearing present and Yes Ability to bilaterally elevate shoulders present Speech: No Abnormal speech present Gait exam (Neuro): Normal gait present Motor exam (neuro): 5/5 motor strength present throughout Sensory Exam: No Sensory deficit (Neuro) Extrem Other: On the anterior surface of the left shoulder and left upper arm there is very thin very well-healed scar radiating previous surgery. Limited range of motion to the left upper extremity in his shoulder joint. General: No pedal edema Psych Speech and movement: Normal speech and movement present Affect: normal affect Attitude: cooperative Thought process: Normal thought process present Thought content: Normal thought content present Insight: Good insight present (Psych) Judgement: Good judgement present (Psych) Results Reviewed Results Reviewed: I personally examined x-ray of this patient's left shoulder and read radiologist report. The alignment of the joint prosthesis is appropriate. There is no overt periprosthetic loosening, however proximal humeral bone is osteoporotic. Assessment & Plan Assessment & Plan (1) History of reverse total replacement of left shoulder joint: Code(s): Z96.612 - Presence of left artificial shoulder joint Category: Surgical (2) Left shoulder pain: Code(s): M25.512 - Pain in left shoulder Category: Medical (3) Chronic pain syndrome: Code(s): G89.4 - Chronic pain syndrome Category: Medical Plan I will schedule this patient for diagnostic suprascapular left nerve block. If this will not result in good pain relief for the patient I will schedule her for interscalene diagnostic nerve block. Stimulation of the targets with sprint PNS versus curonix PNS will be considered for this patient as the results of the suprascapular nerve block versus interscalene nerve block will become available for me. Unfortunately patient can not take NSAIDs. She is on blood thinners. To help her pain and also to help her sleep at night I will start her on baclofen 10 mg t.i.d.. Medications: New baclofen 10 mg PO TID 30 days 90 tabs 6RF Patient Instructions: I here by testify that I spent 45 minutes in conversation with this patient as well as evaluating her diagnostic studies and diagnostic reports as well as planning her care and organizing this note. railroad hand from voice [phone] was helping us to maintain this conversation in [place]. Coding Level of Care Code New Pt Level 4 (96992) Diagnoses History of reverse total replacement of left shoulder joint Z96.612 Left shoulder pain M25.512 Chronic pain syndrome G89.4
[2025-02-05 08:55] VITALS: BP 133/68; PULSE 77; O2SAT 96; BMI 31.7
== END 2025-02-05 09:34 | disposition home or self-care (01) ==
LOC: HO.PMC 08:54
PROVIDERS: PCP Internal Medicine; Referring Provider Orthopaedic Surgery; Visit Provider Anesthesiology
DX: Z96.612 Presence of left artificial shoulder joint (principal); M25.512 Pain in left shoulder; G89.4 Chronic pain syndrome
CPT/HCPCS: 99204

== ENCOUNTER → 2025-02-05 08:53 | Outpatient (BNVA) | payer OTHER, SELFPAY | PROVIDERS: PCP Internal Medicine; Referring Provider Orthopaedic Surgery; Visit Provider Anesthesiology | DX: G89.4 Chronic pain syndrome (principal); M25.512 Pain in left shoulder; Z96.612 Presence of left artificial shoulder joint | CPT/HCPCS: 99202 ==

== ENCOUNTER 2025-02-13 13:13 | Outpatient (AMB) | payer OTHER, SELFPAY ==
--- NOTE | 2025-02-13 14:48 | AM.OFFVISNUR ---
Intake Visit Reasons: prolia injection Allergies No Known Allergies [No Known Allergies*] Allergy (Verified 02/05/25 08:55) Nursing Note Leeanne Gordillo presents today? for? Prolia 60mg/mL injection for the treatment of osteoporosis. The patient has not had any recent fever or illness. The injection site to be used is without erythema, edema, and is clean, dry and intact. Prolia 60 mg/mL [facility] 02607-508-17 Lot # [id number] Expiration 06/11/2027 given in the Left posterior forearm. The patient tolerated the procedure well.? We discussed follow-up? precautions including but not limited to injection site soreness, redness, itching or swelling. The patient can call the office for consideration of treatment recommendations e.g., medication to reduce pain (e.g., Tylenol) or itching (e.g., Benadryl) if needed. Skin and mucosal symptoms such as generalized hives, itching, or flushing; swelling of lips, face, throat, or eyes. Respiratory symptoms such as nasal congestion, change in voice, sensation of throat closing, stridor, shortness of breath, wheeze, or cough. Gastrointestinal symptoms such as nausea, vomiting, diarrhea, cramping abdominal pain. Cardiovascular symptoms such as collapse, dizziness, tachycardia, hypotension are considered medical emergencies and the patient verbalizes that urgent medical attention (call 911) should be sought. The patient was observed for 30 minutes. No injection site reactions noted. The patient was discharged from the practice. Via server security administrator, Marcel # [id number], I reminded Mrs. Gordillo of the importance of keeping her follow up appointments. Patient?s next Prolia injection is scheduled for August 122024 Office Meds Prolia 60 mg/mL subcutaneous syringe Performing Provider: Catie Nguyen MD [place] [facility] Administered by: Leonides Scott RN on 02/13/25 13:27 Dose Route Admin Location Dispensed Lot Number Expiration Date [facility] Roll Forming Supervisor 60 mg subcut 1 mL [id number] 06/11/27 57697-782-48 [facility] Assessment & Plan Assessment & Plan Orders: Orders AMB Denosumab Injection Practice Supplied Today M81.0 - Age-related osteoporosis without current pathological fracture Medications: New Prolia (denosumab) 60 mg subcut ONCE 1 mL 0RF NS M81.0 - Age-related osteoporosis without current pathological fracture Coding
--- OUTSIDE RECORDS SUMMARY | 2025-02-13 15:07 | XMS_ITS | Clinical Summary ---
Author Organization [facility] Address [address] [place] [address] Care Team Providers Care Inspection Clerk Name Role Phone Provider, Not In System [...] patient's age to complete this topic Insurance [facility] AD[facility] Care Teams Inspection Clerk Relationship Specialty Start Date End Date Provider, Not In System PCP - General 10/13/22
== END 2025-02-13 13:31 | disposition home or self-care (01) ==
LOC: HO.RHE 13:14
PROVIDERS: PCP Internal Medicine; Visit Provider Student in an Organized Health Care Education/Training Program
DX: M81.0 Age-related osteoporosis without current pathological fracture (principal)

== ENCOUNTER → 2025-02-13 13:13 | Outpatient (BNVA) | payer OTHER, SELFPAY | PROVIDERS: PCP Internal Medicine; Visit Provider Student in an Organized Health Care Education/Training Program | DX: M81.0 Age-related osteoporosis without current pathological fracture (principal) | CPT/HCPCS: 96372; J0897 ==

== ENCOUNTER 2025-04-28 09:04 | Outpatient (REF) | payer OTHER, SELFPAY ==
--- NOTE | ~2025-04-28 | FL_ITS ---
EXAMINATION: XR UPPER GI AIR CONTRAST SERIES WITH BARIUM SWALLOW CLINICAL INFORMATION: Gastroesophageal reflux disease without esophagitis COMPARISON: None available. TECHNIQUE: Routine upper GI air contrast study and barium swallow was performed in upright and lying position. FINDINGS: Following oral administration of thick barium and effervescent granules and upright view there is normal propagation bolus from the oral cavity through the pharynx, esophagus into stomach without any obstruction, narrowing or stricture. The course, caliber and peristalsis of the esophagus is normal. However there is fixed and persistent mild narrowing of the gastroesophageal junction. On placing patient in supine and prone there is little moderate increased gastric secretions likely hyper acidity. There is moderate gastroesophageal reflux of contrast into the midesophagus with reducible hiatal hernia. Mucosal pattern of the stomach, duodenal bulb and the sweep is normal. FLUOROSCOPY TIME: 1 minute 8 seconds. DOSE AREA PRODUCT: 1050 uGy-m2 (microgray-meter squared) FL/FL upper GI w air w Ba Swallow IMPRESSION: Consistent narrowing of GE junction on upright views suspicious for underlying lesion or spasm. Increased gastric secretions likely secondary to a hyper acidity. There is moderate gastroesophageal reflux with transient reducible hiatal hernia Electronically signed by: Jimmie Liu MD 04/28/2025 11:27 AM EDT
== END 2025-04-28 09:05 | disposition home or self-care (01) ==
LOC: HO.XRAY 09:04
PROVIDERS: PCP Internal Medicine; Visit Provider Nurse Practitioner Family
DX: K21.9 Gastro-esophageal reflux disease without esophagitis (principal)
CPT/HCPCS: 74246

== ENCOUNTER → 2025-04-28 09:06 | Outpatient (BNV) | payer OTHER, SELFPAY | PROVIDERS: PCP Internal Medicine; Visit Provider Radiology Diagnostic Radiology | DX: K21.9 Gastro-esophageal reflux disease without esophagitis (principal) | CPT/HCPCS: 74246 ==

== ENCOUNTER 2025-04-30 08:53 | Outpatient (AMB) | payer OTHER, SELFPAY ==
--- OUTSIDE RECORDS SUMMARY | 2025-04-30 09:22 | XMS_ITS | Clinical Summary ---
Author Organization [employer] Address [address] [place] [address] Care Team Providers Care Sewer Line Repairer Name Role Phone Provider, Not In System Primary Care Provider Un available Immunizations Immunization Administration Dates Next Due Influenza injectable quadrivalent [...] 03/28/2022, 12/05/2021, Additional history exists Influenza Vaccine (Season Ended) 2025 09/14/2021, 10/21/2019, 12/17/2018, Additional history exists RSV Patients [...] patient's age to complete this topic Meningococcal B Vaccine Aged Out No l onger eligible based on patient's age to complete this topic Meningococcal Vaccine Aged Out No zenia emil eligible based on patient's age to complete this topic RSV under 20 months Aged Out No longe r eligible based on patient's age to complete this topic Rotavirus Vaccines Aged Out No longer eligible based on patient's age to complete this topic Insurance [facility] [place] [address] [place] [address] Care Teams Sewer Line Repairer Relationship Specialty Start Date End Date Provider, Not In System PCP - General 10/13/22
--- NOTE | 2025-04-30 09:49 | MHC.OFFVIS ---
Vital Signs 04/30/25 09:51 Height 4 ft 11 in Weight 153 lb 14.122 oz BMI 31.1 BP 132/64 Blood Pressure Location Lt brachial Position Sitting Pulse 56 Pulse Source Monitor Intake Visit Reasons: colonoscopy clearance Intake Note: colonoscopy clearance Manager Heart Failure Required: Yes Manager Heart Failure Language: Fire Fighting Equipment Specialist Name: [id number] Accompanied by: Self / Same As Patient Allergies No Known Allergies (No Known Allergies*) Allergy (Verified 02/05/25 08:55) Medication List - Last Reconciled 04/30/25 by LULU Roberts acetaminophen ER 650 mg PO Q6H PRN 30 days atorvastatin 40 mg PO BEDTIME baclofen 10 mg PO TID 30 days [cane As directed] cane As directed [Cock up splint Wear on right wrist at night. ] diclofenac sodium 1% 4 grams topical QID dofetilide 500 mcg PO Q12H gabapentin 600 mg PO BID PRN 90 days ipratropium bromide 17 mcg/actuation (Atrovent HFA) 2 puffs inhalation Q8H 30 days leflunomide 10 mg PO DAILY losartan 100 mg PO DAILY 90 days metoprolol succinate ER 50 mg See Protocol PO BID nebulizers As directed Orencia ClickJect (abatacept) 125 mg subcut QWEEK NS pantoprazole 40 mg PO DAILY 90 days rivaroxaban (Xarelto) 20 mg PO DAILY sertraline 25 mg PO DAILY 90 days spironolactone 25 mg See Protocol PO DAILY 90 days umeclidinium 62.5 mcg/actuation (Incruse Ellipta) 1 inh inhalation DAILY 30 days HPI HPI colonoscopy clearance: Details: Leeanne is a 70-year-old female with past medical history of hypertension, hyperlipidemia, obstructive sleep apnea with CPAP use, CVA with mild residual right-sided weakness, asthma/COPD overlap syndrome, diastolic heart failure, paroxysmal atrial flutter treated with rhythm control using Tikosyn, who had atrial flutter ablation 09/04/24 who presents for follow up and preop clearance for colonoscopy. Today she reports that she has been doing well overall. She offers no concerning symptoms. She does not remember if she had a follow-up with electrophysiology after her procedure. She denies heart palpitations, chest discomfort, shortness of breath. She is very vague with her answers. She is having a barium swallow procedure tomorrow. No date yet for her colonoscopy. No bleeding issues reported with Xarelto. [facility] Medical History Encounter for monitoring denosumab therapy Osteoarthritis of left shoulder History of cardiac monitoring Diastolic heart failure Rheumatoid arthritis flare Abdominal discomfort Left shoulder pain Right wrist pain Right shoulder pain Obesity (BMI 30-39.9) Preoperative clearance Abnormal chest x-ray Obesity Pneumonitis Breast pain, left Diastolic dysfunction Pre-op chest exam Osteoarthritis of shoulders, bilateral Asthma-COPD overlap syndrome Personal history of nicotine dependence History of CVA (cerebrovascular accident) (~2017) ILD (interstitial lung disease) Post-menopausal Hypoxia Seropositive rheumatoid arthritis Right hemiplegia (~2016) Chronic anticoagulation GERD (gastroesophageal reflux disease) Rheumatoid arthritis Obstructive sleep apnea on CPAP Essential hypertension Paroxysmal atrial fibrillation (~2016) Pure hypercholesterolemia Surgical History Cataract History of appendectomy History of foot surgery History of shoulder surgery Family History Father No problems noted. Mother No problems noted. Brother Stomach cancer Social History Household Members: None Housing: Apartment Do you presently have visiting nurse or other home services: No Alcohol intake: current Alcohol intake frequency: holidays/special occasions only Alcohol type: wine Patient Tobacco Use Status: Former Tobacco user Tobacco use type: Cigarette Years Smoked: 20 years e-Cigarette/Vaping Use: Never Used Second Hand Smoke Exposure: No service: No Current occupational status: retired Cognitive needs: No Hearing needs: Yes Vision needs: No Review of Systems Const All systems reviewed & are unremarkable except as noted in HPI and below Denies chills, Denies fatigue, Denies fever(s), Denies frequent falls, Denies weakness, Denies weight gain and Denies weight loss ENT Denies dizziness Card Denies chest pain, Denies leg edema, Denies lightheadedness, Denies palpitations, Denies dyspnea and Denies dyspnea on exertion Resp Denies cough, Denies dyspnea and Denies dyspnea on exertion GI Denies hematochezia Musc Denies abnormal gait, Denies muscle weakness, Denies numbness, Denies radiating pain into limb and Denies tingling Neuro Denies abnormal gait, Denies dizziness, Denies frequent falls, Denies numbness, Denies tingling and Denies weakness Endo Denies fatigue and Denies palpitations Physical Exam Vital Signs: Last Vital Signs Pulse 56 04/30/25 09:51 BP 132/64 04/30/25 09:51 BMI result Body Mass Index 31.1 Const General: cooperative, healthy appearing, comfortable and no acute distress Orientation/consciousness: patient oriented x3 Neck Neck: Yes normal visual inspection and Yes no JVD Resp Effort & Inspection: normal respiratory effort Auscultation: clear to auscultation bilaterally, no crackles, no rales, no rhonchi and no wheezes Cardio Rate: regular rate Rhythm: regular rhythm Heart sounds: S1 normal heart sound present, S2 normal heart sound present, no gallops, no murmurs and no rubs Neuro General: patient oriented x3 Extrem General: Yes normal to inspection, No no pedal edema and No calf tenderness Psych Appearance: grossly normal Mental Status: mental status grossly normal Speech and movement: Normal speech and movement present Office Procedures EKG Details: Today, read by me, sinus bradycardia, rate 56, QTC 453 milliseconds [id number], Complete Results Reviewed Results Reviewed: Echocardiogram 10/03/2024 showed EF 65-70%, mild LVH, grade 2 diastolic dysfunction, severe dilated left atrium severe mitral calcification with cardiac valve Dopplers normal Nuclear stress test 12/26/2021 showing normal myocardial perfusion imaging EF greater than 70%. Assessment & Plan Assessment & Plan (1) Paroxysmal atrial flutter: Code(s): I48.92 - Unspecified atrial flutter Category: Medical Plan: History of paroxysmal atrial flutter, symptomatic that is treated with rhythm control using Tikosyn. She was previously on flecainide and had recurrent atrial flutter. She did undergo an atrial flutter ablation 09/04/2024 and does not recall if she saw the chucking lathe operator in follow-up after that procedure. Her med list continues to show [place]. She is still on Xarelto for anticoagulation. EKG done today showing sinus bradycardia, rate 56, QTC. 453 milliseconds. Will have her continue on current med management. Will work on obtaining notes from the electrophysiology office. Instructed on avoidance of all stimulants. Cardiology office visit and EKG in 6 month, sooner if needed (2) Visit for monitoring Tikosyn therapy: Code(s): Z51.81 - Encounter for therapeutic drug level monitoring; Z79.899 - Other terminal gauger (current) drug therapy Category: Medical Plan: As above (3) Chronic anticoagulation: Code(s): Z79.01 - nursing home (current) use of anticoagulants Category: Medical Plan: On Xarelto for anticoagulation. No bleeding issues reported. (4) Essential hypertension: Code(s): I10 - Essential (primary) hypertension Category: Medical Plan: Blood pressure goal less than 130/80. Near goal today. No med changes made. (5) Asthma-COPD overlap syndrome: Code(s): J44.9 - Chronic obstructive pulmonary disease, unspecified Category: Medical Plan: Stable at present (6) Preop cardiovascular exam: Code(s): Z01.810 - Encounter for preprocedural cardiovascular examination Category: Medical Plan: Preop for colonoscopy. She may proceed with low cardiac risk. She is on Xarelto which can be held 48 hours prior to the procedure and plan restart as soon as cleared by GI to do so. Cardiac monitoring for PAF. Call/consult Cardiology if needed. Plan I discussed her history of atrial flutter and ablation procedure she underwent 08/2024. We reviewed her medications and I informed her that I would check with EP to see if any med changes could be made. I reviewed with the patient the need for cardiovascular clearance before her colonoscopy and the importance of determining whether her blood thinner should be held prior to the procedure. We also talked about scheduling a follow-up with cardiology in six months and reviewing her medications based on the previous heart procedure notes. Patient Instructions: - Confirmed witht the patinet that rivaroxaban needs to be held 48 hr before the colonoscopy. - Attend the scheduled cardiology follow-up in six months. - Continue current medications unless advised otherwise by the doctor. Patient was informed and verbally consented to the use of an ambient scribe for clinic note documentation during this visit. Visit time spent on chart review, interview, assessment, orders, documentation. Coding Level of Care Code Est Pt Level 4 (89005) Complex EM visit Add On G2211 Diagnoses Paroxysmal atrial flutter I48.92 Visit for monitoring Tikosyn therapy Z51.81; Z79.899 Chronic anticoagulation Z79.01 Essential hypertension I10 Asthma-COPD overlap syndrome J44.9 Preop cardiovascular exam Z01.810 CPT Codes EKG - CPT: 65084-[id number], Complete ([id number]) Time Spent (min) 30
[2025-04-30 09:51] VITALS: BP 132/64; PULSE 56; BMI 31.1
== END 2025-04-30 10:21 | disposition home or self-care (01) ==
PROVIDERS: PCP Internal Medicine; Visit Provider Nurse Practitioner Family
DX: I48.92 Unspecified atrial flutter (principal); Z51.81 Encounter for therapeutic drug level monitoring; Z79.899 Other long term (current) drug therapy; Z79.01 Long term (current) use of anticoagulants; I10 Essential (primary) hypertension; J44.9 Chronic obstructive pulmonary disease, unspecified; Z01.810 Encounter for preprocedural cardiovascular examination
CPT/HCPCS: 93010; 99214; G2211

== ENCOUNTER → 2025-04-30 08:53 | Outpatient (BNVA) | payer OTHER, SELFPAY | PROVIDERS: PCP Internal Medicine; Visit Provider Nurse Practitioner Family | DX: Z01.810 Encounter for preprocedural cardiovascular examination (principal); I48.92 Unspecified atrial flutter; I10 Essential (primary) hypertension; J44.9 Chronic obstructive pulmonary disease, unspecified; Z51.81 Encounter for therapeutic drug level monitoring; Z79.899 Other long term (current) drug therapy; Z79.01 Long term (current) use of anticoagulants | CPT/HCPCS: 93005; 99212 ==

== ENCOUNTER 2025-05-01 12:19 | Outpatient (REF) | payer OTHER, SELFPAY ==
--- NOTE | ~2025-05-01 | FL_ITS ---
EXAMINATION: XR BARIUM SWALLOW CLINICAL INFORMATION: Dysphagia COMPARISON: None available. TECHNIQUE: Modified barium swallow was performed in lateral fluoroscopy in presence of speech therapist. FINDINGS: Following oral administration of various consistencies of food coated with barium especially thick barium, nectar consistency and cracker coated barium and solid food there is normal oral phase with propagation of bolus from the oral cavity through the pharynx and esophagus without laryngeal penetration and aspiration. There is no retention of barium in the valleculae or piriform sinuses. FLUOROSCOPY TIME: 1 minute 24 seconds DOSE AREA PRODUCT: 1196 uGy-m2 (microgray-meter squared) FL/FL Modified Barium Swallow IMPRESSION: Unremarkable modified barium swallow examination. Recommend correlation with speech therapy report. Electronically signed by: Jimmie Liu MD 05/01/2025 04:15 PM EDT
--- NOTE | 2025-05-04 16:10 | MHC.SL.IMP ---
Date of Plan of Treatment: 05/04/25 Onset of Symptoms/Illness: 04/28/25 Date Treatment Started: 05/04/25 Admitting Diagnosis: R13.10 Dysphagia Primary Speech & Language Diagnosis: R13.10 Dysphagia Reason for Today's Visit: [id number] Modified Barium Swallow Study Pre-evaluation Dietary Consistencies: Regular Pre-evaluation Liquid Consistency: Thin Pre-evaluation Medication Administration: Whole with Liquid Medical History: Modified Barium Swallow Study Fluoroscopic Evaluation of Swallowing Function CPT Code 68760 Evaluation Year: 2024 Reason for Study: Patient reporting difficulty swallowing. Referring Physician: Dafne Pollard MD Evaluating Clinician: Natalie Younger MA, CCC-DAMPENER Study Number: 1 Patient Name: Leeanne Gordillo Status: Outpatient, Ambulatory Age: 70 Sex: Female Medical History Medical History Encounter for monitoring denosumab therapy Osteoarthritis of left shoulder History of cardiac monitoring Diastolic heart failure Rheumatoid arthritis flare Abdominal discomfort Left shoulder pain Right wrist pain Right shoulder pain Obesity (BMI 30-39.9) Preoperative clearance Abnormal chest x-ray Obesity Pneumonitis Breast pain, left Diastolic dysfunction Pre-op chest exam Osteoarthritis of shoulders, bilateral Asthma-COPD overlap syndrome Personal history of nicotine dependence History of CVA (cerebrovascular accident) (~2016) ILD (interstitial lung disease) Post-menopausal Hypoxia Seropositive rheumatoid arthritis Right hemiplegia (~2016) Chronic anticoagulation GERD (gastroesophageal reflux disease) Rheumatoid arthritis Obstructive sleep apnea on CPAP Essential hypertension Paroxysmal atrial fibrillation (~2017) Pure hypercholesterolemia Surgical History Cataract History of appendectomy History of foot surgery History of shoulder surgery Current (pre-evaluation) Intake/Diet: Route: PO Diet Grade: Regular Liquid Consistencies: Thin Pre-Study Functional Oral Intake Scale (FOIS): 7- Total oral intake with no restrictions Pain: None reported at time of study SUBJECTIVE: Patient is a 70 year old female referred for a modified barium swallow study (MBSS) by Dafne Pollard MD from the primary care office. Patient c/o food feeling stuck in her throat and sometimes coughing after eating solids. She denies pain with swallowing. She did have an upper GI series/barium swallow earlier this week 04/28 showing moderate reflux, per Dr. Liu, ?Consistent narrowing of GE junction on upright views suspicious for underlying lesion or spasm. Increased gastric secretions likely secondary to a hyper acidity. There is moderate gastroesophageal reflux with transient reducible hiatal hernia.? Pertinent medical history includes asthma-COPD overlap, CVA, LOW on CPAP, GERD, and right hemiplegia. Food and Liquid Trials: Oral Impairment: Lip Closure: 0=No labial escape Oral Impairment: Tongue Control During Bolus Hold: 0=Cohesive bolus between tongue to palatal seal Oral Impairment: Bolus Preparation/Mastication: 1=Slow prolonged chewing/mashing with complete re-collection Oral Impairment: Bolus Transport/Lingual Motion: 2=Slowed tongue motion Oral Impairment: Oral Residue: 1=Trace residue lining oral structures Oral Impairment:Initiation of Pharyngeal Swallow: 1=Bolus head in valleculae Pharyngeal Impairment: Soft Palate Elevation: 0=No bolus between soft palate (SP)/pharyngeal wall (PW) Pharyngeal Impairment: Laryngeal Elevation: 0=Complete superior movement of thyroid cartilage (see description) Pharyngeal Impairment: Anterior Hyoid Excursion: 0=Complete anterior movement Pharyngeal Impairment: Epiglottic Movement: 0=Complete inversion Pharyngeal Impairment: Laryngeal Vestibular Closure:: 0=Complete: no air/contrast in laryngeal vestibule Pharyngeal Impairment: Pharyngeal Stripping Wave: 0=Present: complete Pharyngeal Impairment: Pharyngeal Contraction: Did not test Pharyngeal Impairment: Pharyngoesophageal Segment Openin=Complete distension and complete duration: no obstruction of flow Pharyngeal Impairment: Tongue Base (TB) Retraction: 2=Narrow column of contrast/air between TB and posterior PW Pharyngeal Impairment: Pharyngeal Residue: 1=Trace residue within or on pharyngeal structures Pharyngeal Impairment: Esophageal Clearance Upright Position: Did not test Impressions and Recommendations Clinical Observations: OBJECTIVE: Time-out: performed at 13:15 Evaluation Start: 13:00; Stop: 13:05 Patient Positioning: Standing Viewing Planes: LATERAL ONLY Contrast: MBSImP? Standardized Protocol using commercially prepared, standardized Barium viscosities, including: Varibar? THIN LIQUID (40% w/v, <15 cps) , Varibar? PUDDING (40% w/v, <4223-6682 cps) , 1/2 Shortbread Cookie (1 x1 x.25 ) MBSImP ID: [id number] MBSImP Results: Lip closure for intraoral bolus containment resulted in no labial escape. Tongue control during bolus hold maintained a cohesive bolus held between tongue to palate seal. Bolus preparation and mastication resulted in slow, prolonged chewing/mashing but with complete re-collection. Bolus transport/lingual motion was with slowed tongue motion. Oral residue was a trace, lining oral structures. Initiation of the pharyngeal swallow occurred when the bolus head was in the valleculae. Soft palate elevation resulted in no bolus between the soft palate and the pharyngeal wall. Laryngeal elevation demonstrated complete superior movement of the thyroid cartilage with complete approximation of the arytenoids to the epiglottic petiole. Anterior hyoid excursion demonstrated complete anterior movement. Epiglottic movement resulted in complete inversion. Laryngeal vestibular closure was complete, as indicated by no air or contrast within the laryngeal vestibule at the height of the swallow. Pharyngeal stripping wave was present and complete. Pharyngeal contraction could not be determined due to logistical reasons not related to physiologic impairment. Pharyngoesophageal segment opening was completely distended for complete duration with no obstruction of bolus flow. Tongue base retraction allowed a narrow column of contrast or air between the retracted tongue base and the posterior pharyngeal wall. Pharyngeal residue was a trace within or on pharyngeal structures. Esophageal clearance in the upright position could not be assessed due to logistical reasons not related to physiologic impairment. Oral Impairment Score: 4 Pharyngeal Impairment Score: 2 (absence of score, component 13) Esophageal Impairment Score: --- (absence of score, component 17) Laryngeal Penetration and Aspiration: Neither penetration nor aspiration was observed in today's study with Cookie, Pudding-thick, Thin. ASSESSMENT: This exam was performed by the radiologist and the speech pathologist. Patient was standing for lateral view only. She was able to feed herself without difficulty and trialed the following consistencies: Thin liquid (individual & sequential cup sips) Puree (mixture applesauce w/ barium pudding) Regular (Sintia Doone cookie coated in barium pudding) Good lip closure with no anterior bolus loss. Good tongue control with no premature posterior escape. Mastication was slowed and prolonged, but with good clearance on secondary swallows. Posterior lingual motion was mildly slowed. Pharyngeal swallow trigger initiated as the bolus reached the valleculae. No evidence of nasopharyngeal reflux. Complete laryngeal elevation with complete epiglottic inversion and complete laryngeal vestibular closure. No evidence of aspiration or penetration. Trace residue seen coating the tongue base, with complete clearing of the valleculae and pyriforms. Liquid Intake Recommendation: Thin Dietary Recommendations: Regular Medication Administration: Whole with Liquid Please contact the pharmacy regarding appropriate crushable or liquid drug formulations that are available whenever modified delivery is recommended. Compensatory Strategies Recommended: Sitting Upright (90 deg), Small Bites and Sips, Alternate Liquids/Solids, Rate of Ingestion Change Recommendation for Speech Therapy: NA:Typical Evaluation Text Comment: Intake Recommendations: Route: PO Diet Grade: Regular Liquid Consistencies: Thin Post-Study Functional Oral Intake Scale (FOIS): 7- Total oral intake with no restrictions Overall, unremarkable exam. Good oral and pharyngeal clearance. No evidence of aspiration or penetration. Therapy Recommendations: Therapy will be discontinued, as patients swallow in the oral and pharyngeal phase is deemed functional based on observations made during this exam. Patient may benefit from follow-up w/ G.I. in light of recent upper GI/barium swallow showing reflux, hiatal hernia. Clinician - Supplemental, Miscellaneous Communication: It is important to note MBSS objective studies are snapshots in time and Patient function might vary with factors such as time of day or concomitant medical conditions. For this reason, the final treatment plan for this patient should rest with their medical care team. Additional recommendations should be considered with the totality of the Patient in mind. Thank for the opportunity to participate in the care of this patient. If you have any questions about the content of this report, please contact the [facility] at [facility]. Education: Education regarding findings from today's study and plans for therapy were provided to Patient only through Verbal Instruction. Understanding was expressed by the Patient only. Legislative Correspondent Clinician/Clinical Fellow: No Supervisory Statement: N/A Speech Language Pathologist: Natalie Younger M.A., CCC-DAMPENER
== END 2025-05-01 12:20 | disposition home or self-care (01) ==
LOC: HO.XRAY 12:19
PROVIDERS: Visit Provider Internal Medicine
DX: R13.10 Dysphagia, unspecified (principal)
CPT/HCPCS: 74230; 92611

== ENCOUNTER → 2025-05-01 13:00 | Outpatient (BNV) | payer OTHER, SELFPAY | PROVIDERS: Visit Provider Radiology Diagnostic Radiology | DX: R13.10 Dysphagia, unspecified (principal) | CPT/HCPCS: 74230 ==

== ENCOUNTER 2025-05-07 06:02 | Inpatient (IN) | payer OTHER, SELFPAY ==
[2025-05-07] VITALS (11 sets, daily range): BP systolic 93–141; BP diastolic 47–87; PULSE 60–92; RESP 16–22; TEMP 36.3–37.2; O2SAT 93–98; BMI 30.5; BMI 32.5
--- NOTE | ~2025-05-07 | XR_ITS ---
EXAMINATION: XR HAND, LEFT CLINICAL INFORMATION: pain COMPARISON: August 24, 2017. TECHNIQUE: PA, lateral, and oblique views of the left hand. FINDINGS: Sclerosis along the articular surface with subchondral cyst formation at the radiocarpal joint, carpometacarpal joints, metacarpophalangeal joints at first and second and distal interphalangeal joints from the 2nd-5th digits and to a lesser extent in the interphalangeal joints from the third to the fifth digits. No acute cortical disruption or malalignment. XR/XR hand LT 2V IMPRESSION: Moderate to severe osteoarthritis/osteoarthrosis. Worsened since prior exam. Electronically signed by: Hector Mcrae MD 05/07/2025 08:31 AM EDT
--- NOTE | ~2025-05-07 | XR_ITS ---
EXAMINATION: XR CHEST 1 VIEW HISTORY: chest pain COMPARISON: Comparison is made with the prior examination dated 04/11/2024. FINDINGS: A single AP portable view of the chest performed at 6:17 AM is submitted. There are increased interstitial markings, most prominent in the right upper lobe. There are no focal airspace opacities. There is no pleural effusion, pneumothorax, or pulmonary vascular congestion. The heart is top normal in size. There is severe degenerative change of the right shoulder. The patient is status post left reverse shoulder arthroplasty. XR/XR chest 1V IMPRESSION: No acute cardiopulmonary abnormality. Electronically signed by: Kai Zhong MD 05/07/2025 07:44 AM EDT
--- NOTE | 2025-05-07 06:08 | ECG_ITS ---
Test Reason : chest pain Blood Pressure : */* mmHG Vent. Rate : 84 BPM Atrial Rate : 84 BPM P-R Int : 148 ms QRS Dur : 62 ms QT Int : 416 ms P-R-T Axes : -5 18 68 degrees QTcB Int : 491 ms Normal sinus rhythm Prolonged QT Abnormal ECG When compared with ECG of 01-Dec-2024 08:46, No significant change was found Referred By: Generic ED Physician Electronically Signed By: FLETCHER SCHWARZ
[2025-05-07 06:37] LABS: MANUAL DIFF FLAG NO
[2025-05-07 06:39] LABS: Basophils Absolute Auto 0.1 X10*3/uL (0.0-0.2); Basophils Percent Auto 0.6 % (0-2); Eosinophils Absolute Auto 0.2 X10*3/uL (0.0-0.4); Eosinophils Percent Auto 2.7 % (0-4); Hematocrit 33.8 % (37.0-47.0); Hemoglobin 10.9 g/dl (12.0-16.0); Imm Gran Abs Auto 0.02 X10*3/uL (0.00-0.03); Imm Gran Pct Auto 0.2 % (0.0-0.4); Lymphocytes Absolute Auto 1.6 X10*3/uL (1.2-4.9); Lymphocytes Percent Auto 17.2 % (20-40); Mean Corpuscular HGB Conc 32.2 g/dl (31.0-35.0); Mean Corpuscular Volume 83.7 fL (80.0-98.0); Mean Platelet Volume 12.1 fL (9.4-12.3); Monocytes Percent Auto 10.7 % (2-11); Neutrophils Absolute Auto 6.2 x10*3/uL (2.0-8.3); Neutrophils Percent Auto 68.6 % (45-73); Platelet Count 182 X10*3/uL (160-400); Red Blood Count 4.04 X10*6/uL (4.20-5.50); Red Cell Distribution Width 14.1 % (11.0-16.0)
--- NOTE | 2025-05-07 06:42 | PC.NURSE ---
see BP. pt denies symptoms. CP resolved. BP low. MD Pagan notified. 1L NS bolus verbally ordered. no leg edema, no crackles auscultated. pt also now shares she has a mild headache that is similar to headaches she has experienced in the past. NS infusing.
[2025-05-07 06:55] LABS: Alanine Aminotransferase 10 U/L (0-31); Albumin Level 3.7 g/dL (3.5-5.0); Alkaline Phosphatase 49 U/L (39-117); Anion Gap 14 (12-20); Aspartate Amino Transferase 23 U/L (5-31); Bilirubin Total 0.4 mg/dL (0.0-1.0); Blood Urea Nitrogen 19 mg/dL (9-16); Carbon Dioxide 19 mmol/L (22-29); Chloride 110 mmol/L (96-108); Creatinine Clr Calc Pharmacy 66.7; Estimated Glomerular Filt Rate > 60; Glucose Random 96 mg/dL (60-115); Magnesium 1.5 mg/dL (1.6-2.6); Potassium 4.1 mmol/L (3.3-5.1); Sodium 139 mmol/L (135-145); Total Protein 6.9 g/dL (6.5-8.0)
[2025-05-07] MEDS: 0.9 % Sodium Chloride 1,000 ML 999 ML IV (06:56)
[2025-05-07 07:06] LABS: Troponin-I High Sensitivity 66.6 ng/L (<3.5-17.0)
--- NOTE | 2025-05-07 07:52 | ED_ITS ---
HPI - Chest Pain General Chief Complaint: Chest Pain Stated Complaint: CP (afib? ) Time Seen by Provider: 05/07/25 07:25 Source: patient, EMS, old records reviewed and deputy probation officer Mode of arrival: ambulatory Limitations: no limitations History of Present Illness ED Provider: DR. Gibbons HPI narrative: 70-year-old female with pertinent history of AFib on anticoagulation, interstitial lung disease, hypertension, HDL, mood disorder, LOW, COPD no supplemental oxygen, CHFrEF, rheumatoid arthritis causing chronic arthralgia patient woke up from sleep at 03:00 with bilateral hand pain secondary to her chronic arthritis then started to have mid chest pain with no radiation, no shortness of breath. as per EMS report patient initially was in AFib with RVR of 170's now patient is in normal sinus rhythm. No lower extremity swelling or tenderness. Patient currently has no chest pain or shortness of breath. No trauma, no fall, no hands injury. Related Data Home Medications ?Medication ?Instructions ?Recorded ?Confirmed nebulizers 08/05/24 04/30/25 pantoprazole 40 mg tablet,delayed 40 mg PO DAILY@0630 05/07/25 release Previous Rx's ?Medication ?Instructions ?Recorded Cock up splint #1 ea 04/12/22 cane #1 ea 08/30/23 cane #1 ea 04/01/24 umeclidinium 62.5 mcg/actuation 1 inh inhalation DAILY 30 days #30 05/07/24 blister powder for inhalation ea (Incruse Ellipta) ipratropium bromide 17 2 puff inhalation Q8H 30 day s 08/05/24 mcg/actuation HFA aerosol inhaler #12.9 grams (Atrovent HFA) atorvastatin 40 mg tablet 40 mg PO BEDTIME #90 tabs gabapentin 600 mg tablet 600 mg PO BID PRN Pain 90 da ys 01/22/25 #180 tabs metoprolol succinate 50 mg 50 mg PO BID #180 tabs 01/10 02/03 tablet,extended release 24 hr rivaroxaban 20 mg tablet (Xarelto) 20 mg PO DAILY #90 tabs 01/22/25 sertraline 25 mg tablet 25 mg PO DAILY 90 days #90 t abs 01/22/25 Orencia ClickJect 125 mg/mL 125 mg subcut QWEEK #4 mL 01/30/25 subcutaneous auto-injector (abatacept) leflunomide 10 mg tablet 10 mg PO DAILY #90 tabs 01/11 12/06 diclofenac sodium 1 % topical gel 4 g topical QID #100 grams 02/03/25 baclofen 10 mg tablet 10 mg PO TID 30 days #90 tab s 02/05/25 losartan 100 mg tablet 100 mg PO DAILY 90 days #90 tabs 02/16/25 acetaminophen 650 mg 650 mg PO Q6H PRN for pain 3 0 days 02/20/25 tablet,extended release #120 tabs spironolactone 25 mg tablet 25 mg PO DAILY 90 days #90 tabs 02/20/25 dofetilide 500 mcg capsule 500 mcg PO Q12H #180 caps 0 02/23/25 Allergies Allergy/AdvReac Type Severity Reaction Status Date / Time No Known Allergies (No Known Allergy Verified 05/07/25 06:26 Allergies*) Review of Systems 2 Review of Systems: All other systems are reviewed and are negative Constitutional: Reports as per HPI and Reports no additional constitutional complaints Eyes: Reports as per HPI and Reports no additional eye complaints Reports system reviewed and no additional complaints, except as documented Cardiovascular: Reports as per HPI and Reports no additional cardiovascular complaints Respiratory: Reports as per HPI and Reports no additional respiratory complaints Gastrointestinal: Reports as per HPI and Reports no additional gastrointestinal complaints Genitourinary: Reports no additional female genitourinary complaints Musculoskeletal: Reports no additional musculoskeletal complaints Skin/Breast: Reports system reviewed and no additional complaints, except as docu Psychiatric: Reports no additional psychiatric complaints Endocrine: Reports no additional endocrine complaints Hematologic/Lymphatic: Reports no additional hematologic/lymphatic complaints Allergic/Immunologic: Reports no additional allergic/immunologic complaints Reports system reviewed and no additional complaints, except as documented and Reports Abnormal speech present [facility] Past Medical History Medical History Encounter for monitoring denosumab therapy Osteoarthritis of left shoulder History of cardiac monitoring Diastolic heart failure Rheumatoid arthritis flare Abdominal discomfort Left shoulder pain Right wrist pain Right shoulder pain Obesity (BMI 30-39.9) Preoperative clearance Abnormal chest x-ray Obesity Pneumonitis Breast pain, left Diastolic dysfunction Pre-op chest exam Osteoarthritis of shoulders, bilateral Asthma-COPD overlap syndrome Personal history of nicotine dependence History of CVA (cerebrovascular accident) (~2017) ILD (interstitial lung disease) Post-menopausal Hypoxia Seropositive rheumatoid arthritis Right hemiplegia (~2017) Chronic anticoagulation GERD (gastroesophageal reflux disease) Rheumatoid arthritis Obstructive sleep apnea on CPAP Essential hypertension Paroxysmal atrial fibrillation (~2017) Pure hypercholesterolemia Surgical History Cataract History of appendectomy History of foot surgery History of shoulder surgery Family History Family History Father No problems noted. Mother No problems noted. Brother Stomach cancer Social History Social History Household Members: None Housing: Apartment Do you presently have visiting nurse or other home services: No Alcohol intake: current Alcohol intake frequency: holidays/special occasions only Alcohol type: wine Patient Tobacco Use Status: Former Tobacco user Tobacco use type: Cigarette Years Smoked: 20 years Smoked in Last 30 Days: No e-Cigarette/Vaping Use: Never Used Second Hand Smoke Exposure: No Use of substances other than those prescribed or required for medical reasons: No Advance Directives: No Advance Directives Information Provided: Yes Do you have a plan to hurt others: No Plan service: No Current occupational status: retired Cognitive needs: No Hearing needs: Yes Vision needs: No Physical Exam 2 Vital Signs: Vital Signs: Last Vital Signs Temp 97.8 F 05/07/25 06:14 Pulse 73 05/07/25 07:51 Resp 18 05/07/25 07:51 BP 98/58 L 05/07/25 07:51 Pulse Ox 93 05/07/25 07:51 O2 Del Method Room Air 05/07/25 07:51 BMI result Body Mass Index 30.5 Vital signs have been reviewed and appear to be correct. Blood pressure elevated. Heart rate normal. Respiratory rate normal. Temperature normal. Oxygen saturation normal. Appearance: Alert. Oriented X3. No acute distress. Head: Normal external exam. Normocephalic. Atraumatic. No Wells signs noted. No raccoon eyes noted Eyes: PERRLA. EOMI. Conjunctiva and sclera normal. Eyelids normal. ENT: TM's Normal. Pharynx normal. Uvula midline. Moist mucous membranes. No trismus noted. No drooling noted. No muffled voice noted. Neck: Normal inspection. Neck supple. FROM. No adenopathy. Thyroid Normal. No meningeal signs. No neck mass noted. CVS: Normal heart rate and rhythm. Heart sound normal. No murmurs noted. Pulses normal throughout. Respiratory: No respiratory distress. Painless inspiration. Breath sounds normal. No wheezes/rales/rhonchi noted. Chest nontender. No accessory muscle usage noted or decreased air movement noted. Abdomen: Soft and nontender. Bowel sounds normal in all 4 quadrants. No distention noted. No organomegaly noted. No visible injury noted. Back: No CVA tenderness. Full range of motion noted. Skin: Skin warm and dry. Normal skin color. Normal skin turgor. No rashes/lesions/lacerations noted. Extremities: Bilateral diffuse MCP joint swelling, with typical arthritic changes in both hands, neurovascularly intact. Neuro: Oriented X 3. Cranial nerve exam: II-XII are grossly intact No motor deficit. No sensory deficit. Reflexes normal. Course Reevaluation(s) Reevaluation #1: 70-year-old female with rheumatoid arthritis and chronic generalized arthralgia and body ache woke up at 02:00 in the morning with chest pain found to be in AFib with RVR by EMS (EKG / strep is not available ) this report was obtained from nursing note, patient converted into normal sinus rhythm. Now she has no chest pain no palpitation. serial troponin showing increased serum troponin, patient had an echo cardiogram in the ED, also had cardiology consultation Dr. Frederick. Patient last Xarelto was at 05:00, will hold off on heparin for now, admit to hospitalist service. Hypomagnesemia will replete IV. Time: 11:29 Medications Administered Discontinued Medications Generic Name Dose Route Start Last Admin Trade Name Freq PRN Reason Stop Dose Admin Sodium Chloride 1,000 mls @ 999 mls/hr 05/07/25 06:45 05/07/25 08:01 Ns IV 05/07/25 07:45 Infused .Q1H1M RIAZ Infusion Medical Decision Making Differential Diagnosis Differential Diagnoses: The differential diagnosis associated with the presentation includes ( ACS, CHF, Dysrhythmia,pneumonia, pneumothorax, pleural effusion, rheumatoid arthritis flare up, electrolyte derangement, severe anemia.) Admission/Observation Consideration of admission/observation: Escalation of care including admission/observation considered Consult Healthcare Provider Management of the patient was discussed with: Hospitalist ( Dr. Donaldson) and Auto Vinyl Top Installer ( Dr. Frederick) Lab Data MDM Lab Attestation statement: I reviewed the patient's lab results. 05/07/25 06:34 05/07/25 06:34 Labs: Lab Results 05/07/25 05/07/25 Range/Units 06:34 09:17 WBC 9.0 (4.8-10.8) X10*3/uL RBC 4.04 L (4.20-5.50) X10*6/uL Hgb 10.9 L (12.0-16.0) g/dl Hct 33.8 L (37.0-47.0) % MCV 83.7 (80.0-98.0) fL MCH 27.0 (27.0-33.0) pg MCHC 32.2 (31.0-35.0) g/dl RDW 14.1 (11.0-16.0) % Plt Count 182 (160-400) X10*3/uL MPV 12.1 (9.4-12.3) fL Immature Gran % (Auto) 0.2 (0.0-0.4) % Neut % (Auto) 68.6 (45-73) % Lymph % (Auto) 17.2 L (20-40) % Roosevelt % (Auto) 10.7 (2-11) % Eos % (Auto) 2.7 (0-4) % Baso % (Auto) 0.6 (0-2) % Lymph # (Auto) 1.6 (1.2-4.9) X10*3/uL Roosevelt # (Auto) 1.0 (0.1-1.2) X10*3/uL Eos # (Auto) 0.2 (0.0-0.4) X10*3/uL Baso # (Auto) 0.1 (0.0-0.2) X10*3/uL Abs Immat Gran (auto) 0.02 (0.00-0.03) X10*3/uL Absolute Neuts (auto) 6.2 (2.0-8.3) x10*3/uL Absolute Nucleated RBC 0.000 (0.0-0.012) X10*3/uL Nucleated RBC % (auto) 0.0 (0.0-0.2) /100WBC Sodium 139 (135-145) mmol/L Potassium 4.1 (3.3-5.1) mmol/L Chloride 110 H (96-108) mmol/L Carbon Dioxide 19 L (22-29) mmol/L Anion Gap 14 (12-20) BUN 19 H (9-16) mg/dL Creatinine 0.65 (0.5-1.4) mg/dL Estim Creat Clear Calc 66.7 Estimated GFR > 60 Random Glucose 96 (60-115) mg/dL Calcium 9.0 (8.4-10.2) mg/dL Magnesium 1.5 L (1.6-2.6) mg/dL Total Bilirubin 0.4 (0.0-1.0) mg/dL AST 23 (5-31) U/L ALT 10 (0-31) U/L Alkaline Phosphatase 49 (39-117) U/L Troponin I High Sens 66.6 H* D 138.6 H* D (<3.5-17.0) ng/L Total Protein 6.9 (6.5-8.0) g/dL Albumin 3.7 (3.5-5.0) g/dL Independent Interpretation I performed an independent interpretation of an: EKG ( Normal sinus rhythm at 84 beats per minute with prolongation of QTC otherwise unremarkable intervals, no change from previous EKG.) and Plain X-Ray ( chest/left hand x-rays; no acute intrathoracic pathology, left hand showing osteoarthritis.) Radiology Impression Discussion of test interpretation with radiology: I have reviewed the radiologist's reading. Discharge Plan Discharge Clinical Impression: Paroxysmal A-fib, Elevated troponin, Hypomagnesemia Patient Disposition: Admitted As Inpatient Print Language: Persian
[2025-05-07 09:53] LABS: Troponin-I High Sensitivity 138.6 ng/L (<3.5-17.0)
--- NOTE | 2025-05-07 10:32 | CA_ITS ---
Transthoracic Echocardiogram Patient (Last, First, Middle): Leeanne Lozada, Gender: Female Date of : 1955 Age: 70 Procedure Date: 05/07/2025 Procedure Type: Transthoracic Echocardiogram Location: ER Height: 149.86 cm Weight: 68.04 kg BSA: 1.63 m2 Heart Rate: bpm BP: 95 / 58 mmHg Customer Engineer: DIOMEDES Referring MD: Evert Gibbons MD Symptoms: Chest pain, elevated troponin Study Quality: Adequate with contrast ECG Rhythm: Sinus Conclusions: - The left ventricular systolic function is hyperdynamic. The visually estimated ejection fraction is >70%. - The left atrium is severely dilated. - There is moderate calcification of the aortic valve. - There is severe mitral annular calcification. - Mild pulmonary hypertension is present. Findings Procedure Information Contrast agent, definity, is being given per protocol without apparent complications. Left Ventricle Normal left ventricular cavity size. There is mildly increased left ventricular wall thickness. The left ventricular systolic function is hyperdynamic. The visually estimated ejection fraction is >70%. Low-level LVOT/ Intraventricular gradients with increase during Valsalva. Right Ventricle Normal right ventricular cavity size and systolic function. Atria The left atrium is severely dilated. The right atrium is normal in size. Aortic Valve There is moderate calcification of the aortic valve. There is no aortic valve stenosis. There is no aortic valve regurgitation. Mitral Valve There is severe mitral annular calcification. There is trace mitral valve regurgitation. There is no mitral valve stenosis. Pulmonic Valve The pulmonic valve is likely normal. Tricuspid Valve There is mild tricuspid valve regurgitation. Mild pulmonary hypertension is present. Great Vessels The asc aorta is normal in size. Small plaque is seen in the ascending aorta. Venous The inferior vena cava is normal in size and collapses greater than 50% with inspiration. Pericardium/Pleural There is no evidence of pericardial effusion. Prior Study Comparison No significant change compared to prior study dated: 10/03/2024. Measurements 2D Linear Measurements IVSd: 1.15 0.6-0.9/0.6-1.0 cm LVIDd: 3.37 3.9-5.3/4.2-5.9 cm LVIDd Index: 2.07 2.4-3.2/2.2-3.1 cm/m2 LVIDs: 2.26 2.0-3.6 cm LVPWd: 1.19 0.7-1.1 cm LA Diam: 4.40 2.7-3.8/3.0-4.0 cm LAIDs Index: 2.70 1.5-2.3 cm/m2 LV Mass: 153.81 67-162/88-224 g LV Mass Index: 94.36 43-95/49-115 g/m2 LVOT Diam: 1.90 3.0+(-)1.3 cm 2D Systolic Function EF 4C: 73.70 >55% EF 2C: 78.40 >55% EF BiP: 75.40 >55% Mitral Valve MV VTI: 0.67 MV Pk Latrell: 1.81 MV Mn Latrell: 1.13 MV Pk Grad: 13.00 MV Mn Grad: 6.00 MV Pk E: 1.61 MV PK A: 0.99 MV Decel Time: 350.00 E/A: 1.60 E'Lateral: 3.92 E'Medial: 3.92 E/E' Med: 41.10 E/E' Lat: 41.10 PHT: 102.00 MVA PHT: 2.16 MVA Continuity: 1.36 Decel [place]: 4.60 Aortic Valve AoV Pk Latrell: 1.53 AoV Mn Latrell: 1.08 AoV VTI: 0.37 AoV Pk Grad: 9.00 Aov Mn Grad: 5.00 RICHARD Cont.VTI: 2.51 LVOT LVOT Pk Latrell: 1.40 LVOT Mn Latrell: 0.89 LVOT VTI: 0.32 LVOT Pk Grad: 8.00 LVOT Mn Grad: 4.00 LVOT Diam: 1.90 LVOT Area: 2.84 Diastolic Function MV Pk E: 1.61 MV Pk A: 0.99 E/A: 1.60 E'Medial: 3.92 E/E' Med: 41.10 E' Laterial: 3.92 E/E' Lat: 41.10 Right Ventricle TAPSE (mm): 23.00 TVS' Latrell: 10.00 Tricuspid Valve TR Pk Latrell: 2.94 TR Pk Grad: 35.00 RA Press: 8.00 RVSP: 43.00 Great Vessels Aorta Sinus of Valsalva: 2.89 2.0-3.[address] [place]: 1.96 1.7-3.4 cm Ao Asc: 3.00 2.1-3.4 cm Updated in Other Vendor System with Status of Final Chuy Frederick MD electronically signed on 05/07/2025 3:34:52 PM with status of Final
--- NOTE | 2025-05-07 11:18 | P.CONCA_ITS ---
History of Present Illness History of Present Illness Date of Service: 05/07/25 Chief complaint: CP (afib? ) Narrative: This is a cardiology consultation regarding chest pain. Patient has generally seen in our clinic and had seen a nurse practitioner few days back. At that time, she was apparently doing fine. However, currently admitted for chest pain. Difficult to get full history as she is not a good historian. Used payment analyst for the same. Also discussed with daughter who is at the bedside. Apparently, overnight she developed discomfort in her upper extremities which is somewhat arthritic in her description. After that, she apparently developed chest pain. That last for a couple of hours which led to ER visit. Per documentation by triage, apparently patient was in atrial fibrillation rapid ventricular rate in the 170s when the EMS arrived. After that, she got IV fluids. The heart rates that ranged between 170s to 190s. Then she was eventually seen in the ER. However, that time she was in normal sinus rhythm. Hence not clear if she actually had atrial fibrillation rapid rate causing chest pains. Patient herself denies any clear-cut palpitations. Review of Systems 2 Review of Systems: Yes all other systems are reviewed and are negative Constitutional: Constitutional: Reports as per HPI and Reports no additional constitutional complaints Eyes: Eyes: Reports as per HPI and Denies no additional eye complaints ENT: Denies system reviewed and no additional complaints, except as documented and Reports as per HPI Cardiovascular: Cardiovascular: Reports as per HPI, Reports no additional cardiovascular complaints, Denies acrocyanosis, Denies cool extremities, Reports chest pain, Denies leg edema, Denies lightheadedness, Denies palpitations and Denies dyspnea Respiratory: Respiratory: Reports as per HPI, Denies no additional respiratory complaints and Denies dyspnea Gastrointestinal: Gastrointestinal: Reports as per HPI and Denies no additional gastrointestinal complaints Genitourinary: Genitourinary: Reports as per HPI Musculoskeletal: Musculoskeletal: Reports no additional musculoskeletal complaints and Reports as per HPI Integumentary/Breasts: Skin/Breast: Reports system reviewed and no additional complaints, except as docu Neurologic: Reports system reviewed and no additional complaints, except as documented and Reports as per HPI Psychiatric: Psychiatric: Reports no additional psychiatric complaints and Reports as per HPI Endocrine: Endocrine: Reports no additional endocrine complaints, Reports as per HPI and Denies palpitations Hematologic/Lymphatic: Hematologic/Lymphatic: Reports no additional hematologic/lymphatic complaints and Reports as per HPI Allergic/Immunologic: Allergic/Immunologic: Reports no additional allergic/immunologic complaints and Reports as per HPI PMFSH Past Medical History Medical History Encounter for monitoring denosumab therapy Osteoarthritis of left shoulder History of cardiac monitoring Diastolic heart failure Rheumatoid arthritis flare Abdominal discomfort Left shoulder pain Right wrist pain Right shoulder pain Obesity (BMI 30-39.9) Preoperative clearance Abnormal chest x-ray Obesity Pneumonitis Breast pain, left Diastolic dysfunction Pre-op chest exam Osteoarthritis of shoulders, bilateral Asthma-COPD overlap syndrome Personal history of nicotine dependence History of CVA (cerebrovascular accident) (~2016) ILD (interstitial lung disease) Post-menopausal Hypoxia Seropositive rheumatoid arthritis Right hemiplegia (~2016) Chronic anticoagulation GERD (gastroesophageal reflux disease) Rheumatoid arthritis Obstructive sleep apnea on CPAP Essential hypertension Paroxysmal atrial fibrillation (~2016) Pure hypercholesterolemia Family History Family History Father No problems noted. Mother No problems noted. Brother Stomach cancer Surgical History Surgical History Cataract History of appendectomy History of foot surgery History of shoulder surgery Social History Social History Household Members: None Housing: Apartment Do you presently have visiting nurse or other home services: No Alcohol intake: current Alcohol intake frequency: holidays/special occasions only Alcohol type: wine Patient Tobacco Use Status: Former Tobacco user Tobacco use type: Cigarette Years Smoked: 20 years Smoked in Last 30 Days: No e-Cigarette/Vaping Use: Never Used Second Hand Smoke Exposure: No Use of substances other than those prescribed or required for medical reasons: No Advance Directives: No Advance Directives Information Provided: Yes Do you have a plan to hurt others: No Plan service: No Current occupational status: retired Cognitive needs: No Hearing needs: Yes Vision needs: No Meds Allergies Allergy/AdvReac Type Severity Reaction Status Date / Time No Known Allergies (No Known Allergy Verified 05/07/25 06:26 Allergies*) Home Medications ?Medication ?Instructions ?Recorded ?Confirmed ?Last Taken ?Type nebulizers 08/05/24 04/30/25 Unknown H istory pantoprazole 40 mg tablet,delayed 40 mg PO DAILY@0630 05/07/25 Unknown History release Physical Exam 2 Vital Signs: Vital Signs: Last Vital Signs Temp 97.8 F 05/07/25 06:14 Pulse 73 05/07/25 07:51 Resp 18 05/07/25 07:51 BP 98/58 L 05/07/25 07:51 Pulse Ox 93 05/07/25 07:51 O2 Del Method Room Air 05/07/25 07:51 BMI result Body Mass Index 30.5 Const: General: comfortable and no acute distress O rientation/consciousness: patient oriented x3 HEENT: Other: Unremarkable Head: Yes normal to inspection Neck: Neck: Yes normal visual inspection Chest: Chest palpation & inspection: normal inspection of the chest Resp: Auscultation: clear to auscultation bilaterally Cardio: Palpation: normal PMI Heart sounds: S1 normal heart sound present, S2 normal heart sound present, no gallops, no murmurs and no rubs GI: Palpation (GI): Soft to palpation Back/Spine/Pelvis: Other: unremarkable Skin: General skin exam: no rashes or lesions noted Neuro: General: patient oriented x3 Extrem: General: Yes normal to inspection Psych: Mental Status: mental status grossly normal Objective Labs and Meds 05/07/25 06:34 05/07/25 06:34 Lab results: Laboratory Results - last 24 hr 05/07/25 05/07/25 06:34 09:17 WBC 9.0 RBC 4.04 L Hgb 10.9 L Hct 33.8 L MCV 83.7 MCH 27.0 MCHC 32.2 RDW 14.1 Plt Count 182 MPV 12.1 Immature Gran % (Auto) 0.2 Neut % (Auto) 68.6 Lymph % (Auto) 17.2 L [place] % (Auto) 10.7 Eos % (Auto) 2.7 Baso % (Auto) 0.6 Lymph # (Auto) 1.6 [place] # (Auto) 1.0 Eos # (Auto) 0.2 Baso # (Auto) 0.1 Abs Immat Gran (auto) 0.02 Absolute Neuts (auto) 6.2 Absolute Nucleated RBC 0.000 Nucleated RBC % (auto) 0.0 Sodium 139 Potassium 4.1 Chloride 110 H Carbon Dioxide 19 L Anion Gap 14 BUN 19 H Creatinine 0.65 Estim Creat Clear Calc 66.7 Estimated GFR > 60 Random Glucose 96 Calcium 9.0 Magnesium 1.5 L Total Bilirubin 0.4 AST 23 ALT 10 Alkaline Phosphatase 49 Troponin I High Sens 66.6 H* D 138.6 H* D Total Protein 6.9 Albumin 3.7 ECG Interpretation: EKG in the ER shows sinus rhythm at 84/Min; prolonged QT; no clear ischemic changes. Imaging Radiologist's impression: Impressions Chest X-Ray 05/07/25 05:17 IMPRESSION: No acute cardiopulmonary abnormality. Electronically signed by: Kai Zhong MD 05/07/2025 07:44 AM EDT RP Hand X-Ray 05/07/25 08:10 IMPRESSION: Moderate to severe osteoarthritis/osteoarthrosis. Worsened since prior exam. Electronically signed by: Hector Mcrae MD 05/07/2025 08:31 AM EDT RP Assessment and Plan (1) Atrial fibrillation with rapid ventricular response: Status: Acute This is per EMS documentation but no strips available to confirm. We will monitor on telemetry. She is status post atrial flutter ablation. She is maintained on Tikosyn per med review. Need to correct magnesium. Otherwise, continue anticoagulation. Monitor on telemetry. Suspect she will need atrial fibrillation ablation as well. To be decided. (2) Elevated troponin: Status: Acute Could be related to atrial fibrillation and rapid ventricular response. Obtain echocardiogram for any wall motion abnormalities. Continue her usual anticoagulation. Currently, she is chest pain-free. Plan Discussed with Dr. Gibbons. Procedures Date of Service Date of Service: 05/07/25
--- NOTE | 2025-05-07 12:15 | PM.IMHP ---
History of Present Illness Date of Service: 05/07/25 Attending physician on admission: Tila Cao Chief Complaint: Chest pain Leeanne Gordillo is a 70 years old woman with past medical history significant for CVA with right hemiparesis, paroxysmal atrial flutter s/o ablation (09/04/24) on Xarelto/metoprolol/leflunomaide, HFpEF 65-70 %, interstitial lung disease, GERD, RA, obstructive sleep apnea on CPAP, essential hypertension, COPD and hyperlipidemia was brought to the emergency department via EMS after she started to experience left-sided chest pain that started this morning around 02:00. The pain woke her up. She reported associated nausea. Denied any events of vomiting, palpitations, dizziness or diaphoresis. She also complaining of bolus and pain and swelling which she attributes to the RA. According to triage note, EMS found the patient to have heart rate of 170s and received aspirin (4 baby aspirin) and NS bolus. Patient took all her morning medications before presenting to ED including metoprolol and dofetilide. Upon arriving to the emergency department her heart rate was NSR. On my evaluation, patient denied any chest pain. In the ED, she was found to stable vital signs. Blood workup showed WBC of 9.0, hemoglobin 10.9 and platelets of 182. There are no significant electrolyte imbalances except for her clubbing. CO2 is 19 with normal anion gap. BUN is 19 and creatinine 0.65. Troponin is trending up 6.6--> 138.6. ECG showed normal sinus rhythm, HR 84 bpm and QT 491 ms. ED Tx: NS 1 L bolus, magnesium sulfate 2 g IV. Review of Systems Review of Systems: All 12 systems were reviewed and normal except as noted in HPI. COUNTS INCLUDE 234 BEDS AT THE [facility] Medical History Encounter for monitoring denosumab therapy Osteoarthritis of left shoulder History of cardiac monitoring Diastolic heart failure Rheumatoid arthritis flare Abdominal discomfort Left shoulder pain Right wrist pain Right shoulder pain Obesity (BMI 30-39.9) Preoperative clearance Abnormal chest x-ray Obesity Pneumonitis Breast pain, left Diastolic dysfunction Pre-op chest exam Osteoarthritis of shoulders, bilateral Asthma-COPD overlap syndrome Personal history of nicotine dependence History of CVA (cerebrovascular accident) (~2017) ILD (interstitial lung disease) Post-menopausal Hypoxia Seropositive rheumatoid arthritis Right hemiplegia (~2016) Chronic anticoagulation GERD (gastroesophageal reflux disease) Rheumatoid arthritis Obstructive sleep apnea on CPAP Essential hypertension Paroxysmal atrial fibrillation (~2016) Pure hypercholesterolemia Family History Father No problems noted. Mother No problems noted. Brother Stomach cancer Surgical History Cataract History of appendectomy History of foot surgery History of shoulder surgery Social History Household Members: None Housing: Apartment Do you presently have visiting nurse or other home services: No Alcohol intake: current Alcohol intake frequency: holidays/special occasions only Alcohol type: wine Patient Tobacco Use Status: Former Tobacco user Tobacco use type: Cigarette Years Smoked: 20 years Smoked in Last 30 Days: No e-Cigarette/Vaping Use: Never Used Second Hand Smoke Exposure: No Use of substances other than those prescribed or required for medical reasons: No Advance Directives: No Advance Directives Information Provided: Yes Do you have a plan to hurt others: No Plan service: No Current occupational status: retired Cognitive needs: No Hearing needs: Yes Vision needs: No Meds Allergies Allergy/AdvReac Type Severity Reaction Status Date / Time No Known Allergies (No Known Allergy Verified 05/07/25 06:26 Allergies*) Active Medications: Current Medications Magnesium Sulfate (Magnesium Sulfate/H2o) 2 gm in 50 mls @ 25 mls/hr IV ONCE ONE Stop: 05/07/25 13:39 Home Medications ?Medication ?Instructions ?Recorded ?Confirmed ?Last Taken ?Type nebulizers 08/05/24 04/30/25 Unknown History abatacept 125 mg/mL subcutaneous 125 mg subcut WE 05/07/25 05/07/25 05/06/25 History auto-injector (Orencia ClickJect) gabapentin 600 mg tablet 600 mg PO BID Pain 05/07/25 05/07/25 05/07/25 History pantoprazole 40 mg tablet,delayed 40 mg PO DAILY@0630 05/07/25 05/07/25 05/07/25 History release rivaroxaban 20 mg tablet (Xarelto) 20 mg PO DAILY@1700 05/07/25 05/07/25 05/07/25 History Physical Exam Vital Signs and Narrative: Vital Signs: Last Vital Signs Temp 97.8 F 05/07/25 06:14 Pulse 73 05/07/25 07:51 Resp 18 05/07/25 07:51 BP 98/58 L 05/07/25 07:51 Pulse Ox 93 05/07/25 07:51 O2 Del Method Room Air 05/07/25 07:51 BMI result Body Mass Index 30.5 Constitutional - Awake and Alert, No apparent distress. Obese. Pleasant. HEENT - PERRLA, EOMI Heart - RRR, No murmurs Ljungs - Normal lung expansion, Normal respiratory effort, No respiratory distress, CTA bilaterally Abdomen - NT / ND; +BS; No rebound or guarding Extremities - no calf tenderness bilaterally, no swelling Musculoskeletal - Normal inspection, normal ROM. Bilateral hand dorsum swollen tender to palpation. Skin - Warm/Dry Neurological - Alert & oriented x3. Right-sided residual hemiparesis. Normal speech. Psychological - Appropriate affect Results Labs 05/07/25 06:34 05/07/25 06:34 Labs: Laboratory Results - last 24 hr 05/07/25 05/07/25 06:34 09:17 MCV 83.7 MCH 27.0 MCHC 32.2 RDW 14.1 Plt Count 182 MPV 12.1 Immature Gran % (Auto) 0.2 Neut % (Auto) 68.6 Lymph % (Auto) 17.2 L [place] % (Auto) 10.7 Eos % (Auto) 2.7 Baso % (Auto) 0.6 Lymph # (Auto) 1.6 [place] # (Auto) 1.0 Eos # (Auto) 0.2 Baso # (Auto) 0.1 Abs Immat Gran (auto) 0.02 Absolute Neuts (auto) 6.2 Absolute Nucleated RBC 0.000 Nucleated RBC % (auto) 0.0 Anion Gap 14 Estim Creat Clear Calc 66.7 Estimated GFR > 60 Random Glucose 96 Calcium 9.0 Magnesium 1.5 L Total Bilirubin 0.4 AST 23 ALT 10 Alkaline Phosphatase 49 Troponin I High Sens 66.6 H* D 138.6 H* D Total Protein 6.9 Albumin 3.7 Imaging Radiologist's Impressions: Impressions Chest X-Ray 05/07/25 05:17 IMPRESSION: No acute cardiopulmonary abnormality. Electronically signed by: Kia Zhong MD 05/07/2025 07:44 AM EDT RP Hand X-Ray 05/07/25 08:10 IMPRESSION: Moderate to severe osteoarthritis/osteoarthrosis. Worsened since prior exam. Electronically signed by: Hector Mcrae MD 05/07/2025 08:31 AM EDT RP Assessment and Plan (1) Atrial fibrillation with rapid ventricular response: Status: Acute (2) Elevated troponin: Status: Acute (3) Hypomagnesemia: Status: Acute Plan Leeanne Gordillo is a 70 y/o woman admitted with: Atrial fibrillation with rapid ventricular response (or flutter?); now rhythm and rate controlled;paroxysmal (per EMS, no cardiac strips available). Admit to hospitalist service. Telemetry. Continue Xarelto, metoprolol and dofetilide (pt took all morning meds before arriving to ED including metoprolol and dofetilide). EEG. TTE. Cardiology input appreciated -might need ablation. Cardiac diet -no caffeine. Prolonged QT, 491 ms, likely secondary to hypomagnesemia; on dofetilide and metoprolol. Received magnesium sulfate 2 g in the ED. Magnesium oxide 400 mg p.o. b.i.d.. Telemetry. Continue to monitor magnesium level and replete as needed. Hypomagnesemia. Received 2 g of magnesium sulfate. Start treatment with magnesium oxide 400 mg p.o. b.i.d.. Continue to monitor magnesium level. Telemetry. Elevated troponin, possibly secondary to above. Continue to monitor. Essential hypertension. Continue metoprolol, losartan and spironolactone. GERD. Continue pantoprazole. Hyperlipidemia. Continue atorvastatin. COPD/interstitial lung disease -home oxygen. Not in exacerbation. Continue Ellipta and Atrovent. Bilateral hand pain secondary to rheumatoid arthritis. Continue leflunomide. Obstructive sleep apnea. Nocturnal CPAP. History of CVA with residual right hemiparesis. No acute symptoms. Continue Xarelto and statin. HFpEF. 65-70 %. No acute symptoms. DVT prophylaxis: Xarelto Code status: Full Patient will need hospitalization for at least 2 midnights for rapid AFib associated with elevated troponin and prolonged QT treatment with continuous cardiac monitoring, repletion of magnesium and monitoring of cardiac troponin; patient will also need evaluation were subspecialty and echocardiogram. Quality Stroke Does the patient have a stroke diagnosis?: No VTE Prior VTE?: No VTE Risk Level:: Medical - moderate - high VTE Device Contraindication: Treatment Not Indicated VTE Drug Contraindication: N/A - Med Ordered
[2025-05-07] MEDS: Magnesium Sulfate/H2O 2 GM/50 ML PIGGYBACK IV (12:18)
--- NOTE | 2025-05-07 12:57 | PHA.MEDREC ---
Addendum entered by Primo Ramsey RP 05/07/25 14:02: Reviewed by [facility] Original Note: Pharmacy Consult ? Medication Reconciliation Pharmacy has completed the medication reconciliation. Spoke with pt and daughter at bedside, utilizing park interpreter (Giovana) and daughter had a list on hand we were able to read through and confirm her medications with. Pt and daughter stated the pr has not been using the Atrovent or Incruse inhalers in a while with no clear explanation on why the pt stopped them. Patient confirmed her Orencia injection once a week on Wednesdays and confirmed she took it yesterday.
--- NOTE | 2025-05-07 15:19 | MHC.EDTECH ---
pt boosted in bed and is now comfortable, vitals obtained, call calles within reach
--- NOTE | 2025-05-07 16:00 | ECG_ITS ---
Test Reason : HYPOMAGNESIUM Blood Pressure : */* mmHG Vent. Rate : 69 BPM Atrial Rate : 69 BPM P-R Int : 148 ms QRS Dur : 62 ms QT Int : 426 ms P-R-T Axes : 23 17 74 degrees QTcB Int : 456 ms Normal sinus rhythm Low voltage QRS Borderline ECG When compared with ECG of 07-May-2025 06:15, QT has shortened Referred By: Tila Cao Electronically Signed By: FLETCHER SCHWARZ
--- NOTE | 2025-05-07 16:41 | MHC.EDTECH ---
EKG obtained and photo sent to hospitalist aixa sommer via [employer] text @[id number]
[2025-05-07 16:43] LABS: Magnesium 2.4 mg/dL (1.6-2.6)
[2025-05-07 16:59] LABS: Troponin-I High Sensitivity 98.3 ng/L (<3.5-17.0)
[2025-05-07] MEDS: Magnesium Oxide 400 MG TABLET PO (17:35)
[2025-05-07] MEDS: Baclofen 10 MG TABLET PO (20:20)
[2025-05-07] MEDS: Metoprolol Succinate ER 50 MG TAB.ER.24H PO (20:20)
[2025-05-07] MEDS: Atorvastatin Calcium 40 MG TABLET PO (20:20)
[2025-05-07] MEDS: Rivaroxaban 20 MG TABLET PO (20:20)
[2025-05-07] MEDS: Gabapentin 600 MG TABLET PO (20:20)
[2025-05-07] MEDS: 0.9 % Sodium Chloride Flush 3 ML SYRINGE IVFLUSH (20:20)
[2025-05-07] MEDS: Acetaminophen 325 MG TABLET 975 MG PO (20:25)
[2025-05-07] MEDS: Throat Lozenge, Medicated LOZENGE 1 LOZENGE MUCOUS MEM (21:34)
[2025-05-07] MEDS: Melatonin 3 MG TABLET 6 MG PO (21:36)
[2025-05-08 03:54] VITALS: BP 161/77; PULSE 74; RESP 16; TEMP 36.7; O2SAT 97
[2025-05-08 07:09] LABS: MANUAL DIFF FLAG NO
[2025-05-08 07:11] LABS: Basophils Absolute Auto 0.1 X10*3/uL (0.0-0.2); Basophils Percent Auto 0.7 % (0-2); Eosinophils Absolute Auto 0.7 X10*3/uL (0.0-0.4); Eosinophils Percent Auto 8.3 % (0-4); Hematocrit 35.8 % (37.0-47.0); Hemoglobin 11.4 g/dl (12.0-16.0); Imm Gran Abs Auto 0.02 X10*3/uL (0.00-0.03); Imm Gran Pct Auto 0.2 % (0.0-0.4); Lymphocytes Absolute Auto 1.5 X10*3/uL (1.2-4.9); Lymphocytes Percent Auto 18.1 % (20-40); Mean Corpuscular HGB Conc 31.8 g/dl (31.0-35.0); Mean Corpuscular Hemoglobin 27.1 pg (27.0-33.0); Mean Platelet Volume 12.4 fL (9.4-12.3); Monocytes Absolute Auto 0.8 X10*3/uL (0.1-1.2); Monocytes Percent Auto 9.1 % (2-11); Neutrophils Absolute Auto 5.3 x10*3/uL (2.0-8.3); Neutrophils Percent Auto 63.6 % (45-73); Platelet Count 167 X10*3/uL (160-400); Red Blood Count 4.21 X10*6/uL (4.20-5.50); Red Cell Distribution Width 14.3 % (11.0-16.0); White Blood Count 8.4 X10*3/uL (4.8-10.8)
[2025-05-08 07:24] VITALS: BP 94/63; PULSE 66; RESP 20; TEMP 36.6; O2SAT 96
[2025-05-08 07:25] LABS: Anion Gap 12 (12-20); Blood Urea Nitrogen 13 mg/dL (9-16); Carbon Dioxide 23 mmol/L (22-29); Chloride 111 mmol/L (96-108); Creatinine Clr Calc Pharmacy 81.5; Estimated Glomerular Filt Rate > 60; Glucose Random 85 mg/dL (60-115); Magnesium 2.1 mg/dL (1.6-2.6); Potassium 4.3 mmol/L (3.3-5.1); Sodium 142 mmol/L (135-145)
[2025-05-08 07:47] LABS: Troponin-I High Sensitivity 54.2 ng/L (<3.5-17.0)
[2025-05-08] MEDS: Leflunomide 10 MG TABLET PO (08:44)
[2025-05-08] MEDS: Dofetilide 125 MCG CAPSULE 500 MCG PO (08:45)
[2025-05-08] MEDS: Metoprolol Succinate ER 50 MG TAB.ER.24H PO (08:45)
[2025-05-08] MEDS: Gabapentin 600 MG TABLET PO (08:45)
[2025-05-08] MEDS: Baclofen 10 MG TABLET PO ×2 (08:46→16:23)
[2025-05-08] MEDS: Losartan Potassium 50 MG TABLET 100 MG PO (08:46)
[2025-05-08] MEDS: Spironolactone 25 MG TABLET PO (08:46)
[2025-05-08] MEDS: Magnesium Oxide 400 MG TABLET PO ×2 (08:46→16:23)
[2025-05-08] MEDS: Sertraline HCL 25 MG TABLET PO (08:46)
--- NOTE | 2025-05-08 10:43 | MHC.CM.PN ---
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 Cary, HCP discussed, pt. to complete form here, naming her dtr, Leeanne, and it will be added to her chart. Pt. lives alone, she has [employer] services from her DTR and her neighbor, 22 hrs per week. For DME, she has a CPAP machine, a cane and a walker. Family to transport her home at [place]. DCP: home, resume [employer] services. CM to follow for DC needs.
--- NOTE | 2025-05-08 10:54 | PM.PNCARD ---
Subjective Subjective Date of Service: 05/08/25 Interval history: She states she feels fine today. No new complaints. No palpitations or chest pains. Review of Systems Review of Systems Yes all other systems are reviewed and are negative Constitutional: Reports as per HPI and Reports no additional constitutional complaints Eyes: Reports as per HPI and Denies no additional eye complaints Denies system reviewed and no additional complaints, except as documented and Reports as per HPI Cardiovascular: Reports as per HPI, Reports no additional cardiovascular complaints, Denies acrocyanosis, Denies cool extremities, Denies chest pain, Denies leg edema, Denies lightheadedness, Denies palpitations and Denies dyspnea Respiratory: Reports as per HPI, Denies no additional respiratory complaints and Denies dyspnea Gastrointestinal: Reports as per HPI and Denies no additional gastrointestinal complaints Genitourinary: Reports as per HPI Musculoskeletal: Reports no additional musculoskeletal complaints and Reports as per HPI Skin/Breast: Reports system reviewed and no additional complaints, except as docu Reports system reviewed and no additional complaints, except as documented and Reports as per HPI Psychiatric: Reports no additional psychiatric complaints and Reports as per HPI Endocrine: Reports no additional endocrine complaints, Reports as per HPI and Denies palpitations Hematologic/Lymphatic: Reports no additional hematologic/lymphatic complaints and Reports as per HPI Allergic/Immunologic: Reports no additional allergic/immunologic complaints and Reports as per HPI Physical Exam Vital Signs: Last Vital Signs Temp 97.9 F 05/08/25 07:24 Pulse 66 05/08/25 07:24 Resp 20 05/08/25 07:24 BP 94/63 05/08/25 07:24 Pulse Ox 96 05/08/25 07:24 O2 Del Method Room Air 05/08/25 07:24 BMI result Body Mass Index 32.5 Const General: comfortable and no acute distress Orientation/consciousness: patient oriented x3 HEENT Other: Unremarkable Head: Yes normal to inspection Neck Neck: Yes normal visual inspection Chest Chest palpation & inspection: normal inspection of the chest Resp Auscultation: clear to auscultation bilaterally Cardio Palpation: normal PMI Heart sounds: S1 normal heart sound present, S2 normal heart sound present, no gallops, no murmurs and no rubs GI Palpation (GI): Soft to palpation Back/Spine/Pelvis Other: unremarkable Skin General skin exam: no rashes or lesions noted Neuro General: patient oriented x3 Extrem General: Yes normal to inspection Psych Mental Status: mental status grossly normal Objective Labs and Meds 05/08/25 07:01 05/08/25 07:01 Lab results: Laboratory Results - last 24 hr 05/07/25 05/08/25 16:14 07:01 WBC 8.4 RBC 4.21 Hgb 11.4 L Hct 35.8 L MCV 85.0 MCH 27.1 MCHC 31.8 RDW 14.3 Plt Count 167 MPV 12.4 H Immature Gran % (Auto) 0.2 Neut % (Auto) 63.6 Lymph % (Auto) 18.1 L [place] % (Auto) 9.1 Eos % (Auto) 8.3 H Baso % (Auto) 0.7 Lymph # (Auto) 1.5 [place] # (Auto) 0.8 Eos # (Auto) 0.7 H Baso # (Auto) 0.1 Abs Immat Gran (auto) 0.02 Absolute Neuts (auto) 5.3 Absolute Nucleated RBC 0.000 Nucleated RBC % (auto) 0.0 Sodium 142 Potassium 4.3 Chloride 111 H Carbon Dioxide 23 Anion Gap 12 BUN 13 Creatinine 0.55 Estim Creat Clear Calc 81.5 Estimated GFR > 60 Random Glucose 85 Calcium 9.0 Magnesium 2.4 2.1 Troponin I High Sens 98.3 H* 54.2 H* Progress Note: A&P Assessment and plan (1) Atrial fibrillation with rapid ventricular response: Status: Acute Assessment and Plan: This is per EMS, but no strips available to confirm No arrhythmias seen on telemetry. She is status post atrial flutter ablation. Seems like she is maintained on Tikosyn as an outpatient, as it was probably not stopped after the flutter ablation. We can stop this now and just do a Holter monitor as an outpatient to see if she truly has any recurring atrial fibrillation or not. Continue anticoagulation. We will follow up in clinic. (2) Elevated troponin: Status: Acute Assessment and Plan: Could be related to atrial fibrillation and rapid ventricular response. In the echocardiogram, hyperdynamic LVEF. Aortic/mitral valve calcifications and severely dilated left atrium. She has got no chest pains. If necessary, consider ischemic workup as an outpatient. Time Spent With Patient Time: Total time managing care of this patient today ____ minutes. Progress Note: Quality Stroke Does the patient have a stroke diagnosis?: No Procedures Date of Service Date of Service: 05/08/25
[2025-05-08 11:23] VITALS: BP 116/60; PULSE 67; RESP 18; TEMP 36.2; O2SAT 97
--- NOTE | 2025-05-08 12:49 | PM.DS ---
DS: Providers Provider Date of Service: 05/08/25 Date of admission: 05/07/25 11:36 Date of discharge: 05/08/25 Primary care physician: Dafne Pollard MD Consults: 05/07/25 10:32 Consult to Cardiology Stat Consulting Provider: [facility] Reason for consultation: elevated troponin, chest pain. Has provider been notified: Yes 05/07/25 11:35 Consult to Cardiology Routine Consulting Provider: [facility] Reason for consultation: Tachycardia, elevated troponin Has provider been notified: Yes Attending physician on discharge: Theresa Donaldson Discharging clinician: Theresa Donaldson DS: Diagnosis Discharge Diagnosis (1) Atrial fibrillation with rapid ventricular response: Status: Acute (2) Elevated troponin: Status: Acute DS: Summary Hospital Course Hospital Course: HPI:70 years old woman with past medical history significant for CVA with right hemiparesis, paroxysmal atrial flutter s/o ablation (09/04/24) on Xarelto/metoprolol/leflunomaide, HFpEF 65-70 %, interstitial lung disease, GERD, RA, obstructive sleep apnea on CPAP, essential hypertension, COPD and hyperlipidemia was brought to the emergency department via EMS after she started to experience left-sided chest pain that started this morning around 02:00. The pain woke her up. She reported associated nausea. Denied any events of vomiting, palpitations, dizziness or diaphoresis. She also complaining of bolus and pain and swelling which she attributes to the RA. According to triage note, EMS found the patient to have heart rate of 170s and received aspirin (4 baby aspirin) and NS bolus. Patient took all her morning medications before presenting to ED including metoprolol and dofetilide. Upon arriving to the emergency department her heart rate was NSR. On my evaluation, patient denied any chest pain. In the ED, she was found to stable vital signs. Blood workup showed WBC of 9.0, hemoglobin 10.9 and platelets of 182. There are no significant electrolyte imbalances except for her clubbing. CO2 is 19 with normal anion gap. BUN is 19 and creatinine 0.65. Troponin is trending up 6.6--> 138.6. ECG showed normal sinus rhythm, HR 84 bpm and QT 491 ms. ED Tx: NS 1 L bolus, magnesium sulfate 2 g IV. Hospital course: 70 y/o woman admitted with: Atrial fibrillation with rapid ventricular response (or flutter?); now rhythm and rate controlled;paroxysmal : seen by cardiology: per EMS, but no strips available to confirm,No arrhythmias seen on telemetry.She is status post atrial flutter ablation. Seems like she is maintained on Tikosyn as an outpatient, as it was probably not stopped after the flutter ablation. We can stop this now and just do a Holter monitor as an outpatient to see if she truly has any recurring atrial fibrillation or not. Continue Xarelto, metoprolol and dofetilide stopped. elevated tropnonin : no chest pain , echo:The left ventricular systolic function is hyperdynamic. The visually estimated ejection fraction is >70%. The left atrium is severely dilated. There is moderate calcification of the aortic valve. There is severe mitral annular calcification. Mild pulmonary hypertension is present. seen by cardiology -no acute intervention echo seems fine and patient asymptomatic. Prolonged QT, 491 ms, likely secondary to hypomagnesemia-seems improving on tele seems 470 ms - continue Magnesium oxide 400 mg p.o. b.i.d.. monitor bmp& magnesium level . hand xray:Moderate to severe osteoarthritis/osteoarthrosis. Worsened since prior exam. Continue patient denies any significant pain, moving hands fine, continue home Tylenol and follow-up with PCP outpatient plan: stop tikosyn Monitor renal function electrolytes and magnesium level outpatient. Above management discussed with the patient in detail length with the help of interpreter translator, she understand and in agreement with the above plan, time spent 40 minute, all question answered, staff was present during conversation. Time Attestation Total time managing care of this patient today: 40 mintues. Discharge Coordination Time (in mins): 40 min Quality: Safe Use of Opioids Does Pt have an Active Cancer Diagnosis on the Problem List?: No Quality: Stroke Does the patient have a stroke diagnosis?: No Physical Exam Vital Signs: Vital Signs: Last Vital Signs Temp 97.1 F 05/08/25 11:23 Pulse 67 05/08/25 11:23 Resp 18 05/08/25 11:23 BP 116/60 05/08/25 11:23 Pulse Ox 97 05/08/25 11:23 O2 Del Method Room Air 05/08/25 11:23 BMI result Body Mass Index 32.5 Appearance: Alert.? Oriented X3.? . cvs: rrr, [id number] . res: clear to auscultation ,no rhonchii or wheezing abd: no rebound or guarding ,nt, bs present. ext pulses present , no cyanosis . neuro: axo3 , nonfocal. DS: Data Data Completed and Pending Completed studies during hospitalization [Text1]: Procedures Assistance with Respiratory Ventilation, Less than 24 Consecutive Hours, Continuous Positive Airway Pressure (04/15/21) Latter Day of Cardiac Rhythm, Single (03/21/24) Labs on day of discharge: Laboratory Results - last 24 hr 05/07/25 05/08/25 16:14 07:01 WBC 8.4 RBC 4.21 Hgb 11.4 L Hct 35.8 L MCV 85.0 MCH 27.1 MCHC 31.8 RDW 14.3 Plt Count 167 MPV 12.4 H Immature Gran % (Auto) 0.2 Neut % (Auto) 63.6 Lymph % (Auto) 18.1 L [place] % (Auto) 9.1 Eos % (Auto) 8.3 H Baso % (Auto) 0.7 Lymph # (Auto) 1.5 [place] # (Auto) 0.8 Eos # (Auto) 0.7 H Baso # (Auto) 0.1 Abs Immat Gran (auto) 0.02 Absolute Neuts (auto) 5.3 Absolute Nucleated RBC 0.000 Nucleated RBC % (auto) 0.0 Sodium 142 Potassium 4.3 Chloride 111 H Carbon Dioxide 23 Anion Gap 12 BUN 13 Creatinine 0.55 Estim Creat Clear Calc 81.5 Estimated GFR > 60 Random Glucose 85 Calcium 9.0 Magnesium 2.4 2.1 Troponin I High Sens 98.3 H* 54.2 H* Imaging Chest x-ray: Radiologist's impression: ITS Impressions Chest X-Ray 05/07/25 05:17 IMPRESSION: No acute cardiopulmonary abnormality. Hand X-Ray 05/07/25 08:10 IMPRESSION: Moderate to severe osteoarthritis/osteoarthrosis. Worsened since prior exam. Discharge Plan Discharge Anticipated Discharge Date/Time: 05/08/25 12:34 Patient Disposition: Home, Self-Care Discharge Diagnosis: afib,elevated troponin, hypomagnesemia Referrals: Dafne Betancourt MD [Primary Care Provider, Internal Medicine] - 1 Week Discharge Medications: Continued (DME) Cock up splint See Rx Instructions .Route .MEDSUPPLY Qty: 1 0RF Rx Instructions: Wear on right wrist at night. (DME) cane See Rx Instructions .Route .MEDSUPPLY Qty: 1 0RF Rx Instructions: As directed (DME) cane Device See Rx Instructions .Route Qty: 1 0RF Rx Instructions: As directed losartan 100 mg tablet 100 mg PO DAILY 90 Days Qty: 90 1RF acetaminophen 650 mg tablet extended release 650 mg PO Q6H PRN (Reason: for pain) 30 Days Qty: 120 11RF spironolactone 25 mg tablet 25 mg PO DAILY 90 Days Qty: 90 0RF Protocol: Hold for SBP< HOLD for SBP < : 90 pantoprazole 40 mg tablet,delayed release (DR/EC) 40 mg PO DAILY@0630 Rx Instructions: take one tablet half an hour before breakfast gabapentin 600 mg tablet 600 mg PO BID [place] ClickJect 125 mg/mL auto-injector 125 mg subcut WE Xarelto 20 mg tablet 20 mg PO DAILY@1700 (DME) nebulizers Misc See Rx Instructions .Route Rx Instructions: As directed baclofen 10 mg tablet 10 mg PO TID 30 Days Qty: 90 6RF atorvastatin 40 mg tablet 40 mg PO BEDTIME Qty: 90 3RF metoprolol succinate 50 mg tablet extended release 24 hr 50 mg PO BID Qty: 180 3RF Protocol: Hold for SBP/HR < HOLD for SBP < : 90 HOLD for HR < : 60 sertraline 25 mg tablet 25 mg PO DAILY 90 Days Qty: 90 0RF leflunomide 10 mg tablet 10 mg PO DAILY Qty: 90 1RF Discontinued dofetilide 500 mcg capsule 500 mcg PO Q12H Qty: 180 3RF Discharge Orders: Discharge Order (Routine); Ordered 05/08/25 Ordered By: Theresa Donaldson Diet: Advance to usual diet Activity on Discharge: As tolerated Stand Alone Forms: Patient Portal Discharge page Print Language: Korean Care Plan Goals: as below. Health Concerns: as below. Plan of Treatment: hr seems improved -cardiology rec to dc tikosyn. hypomagnesemia improved with repletion. Assessment: as above.
[2025-05-08 13:45] VITALS: BP 116/60; PULSE 67; O2SAT 97
[2025-05-08] MEDS: Rivaroxaban 20 MG TABLET PO (16:23)
== END 2025-05-08 16:47 | disposition home or self-care (01) | DRG 309 ==
LOC: HO.ED 11:28 → HO.EDOVER 11:45 → HO.IMC 15:30
PROVIDERS: Admitting Provider Internal Medicine; Emergency Provider Emergency Medicine; PCP Internal Medicine; Visit Provider Internal Medicine
DX: I48.0 Paroxysmal atrial fibrillation (principal); I50.32 Chronic diastolic (congestive) heart failure; I69.351 Hemiplegia and hemiparesis following cerebral infarction affecting right dominant side; I11.0 Hypertensive heart disease with heart failure; E83.42 Hypomagnesemia; R94.31 Abnormal electrocardiogram [ECG] [EKG]; M06.9 Rheumatoid arthritis, unspecified; K21.9 Gastro-esophageal reflux disease without esophagitis; E78.5 Hyperlipidemia, unspecified; G47.33 Obstructive sleep apnea (adult) (pediatric); E66.9 Obesity, unspecified; Z68.32 Body mass index [BMI] 32.0-32.9, adult; Z87.891 Personal history of nicotine dependence; Z79.01 Long term (current) use of anticoagulants; Z79.899 Other long term (current) drug therapy
CPT/HCPCS: 36415; 71045; 73120; 80048; 80053; 83735; 84484; 85025; 93005; 93306; 97162; 99285; J3475; Q9957

== ENCOUNTER → 2025-05-07 06:11 | Outpatient (BNV) | payer OTHER, SELFPAY | PROVIDERS: Emergency Provider Emergency Medicine; Visit Provider Radiology Diagnostic Radiology | DX: R07.9 Chest pain, unspecified (principal); M19.042 Primary osteoarthritis, left hand | CPT/HCPCS: 71045; 73120 ==

== ENCOUNTER → 2025-05-07 06:32 | Outpatient (BNV) | payer OTHER, SELFPAY | PROVIDERS: Emergency Provider Emergency Medicine; Visit Provider Internal Medicine | DX: I48.91 Unspecified atrial fibrillation (principal); R79.89 Other specified abnormal findings of blood chemistry | CPT/HCPCS: 99233 ==

== ENCOUNTER → 2025-05-07 11:36 | Outpatient (BNV) | payer OTHER, SELFPAY | PROVIDERS: Admitting Provider Internal Medicine; Emergency Provider Emergency Medicine; Visit Provider Internal Medicine | DX: I48.91 Unspecified atrial fibrillation (principal); R79.89 Other specified abnormal findings of blood chemistry | CPT/HCPCS: 99239 ==

== ENCOUNTER 2025-05-11 09:24 | Outpatient (AMB) | payer OTHER, SELFPAY ==
--- NOTE | 2025-05-11 09:26 | A.OFFVIS_ITS ---
Vital Signs 05/11/25 09:40 Height 4 ft 11 in Weight 152 lb BMI 30.7 BP 116/58 L Blood Pressure Location Rt brachial Position Sitting Pulse 68 Pulse Source Pulse Oximeter Pulse Oximetry (%) 97 Oxygen Delivery Method Room Air Intake Visit Reasons: Urgent visit , Per Heather Intake Note: ESTABLISHED PATIENT for mgmt of GERD w/ dysphagia. Labs done, imaging ordered but outstanding. Currently being recoordinated with CS. Chief Complaint; Pt denies any specific sx or concerns today. Pt states that she is taking PPI without difficulty. Would like to review recent hospitalization details. Feeder Catcher Tobacco Required: Yes Feeder Catcher Tobacco Services: Feeder Catcher Tobacco Present Feeder Catcher Tobacco Name: Yesenia [id number] Information Interpreted: clinical only Accompanied by: Self / Same As Patient Allergies No Known Allergies (No Known Allergies*) Allergy (Verified 05/11/25 09:27) HPI HPI Urgent visit , Per Heather: Details: LAST VISIT: Chronic GERD Dysphagia Postprandial abdominal bloating Plan Patient will be sent for upper endoscopy and colonoscopy. Continue pantoprazole daily. Patient has not followed up with her machine heel builder in almost a year and was supposed to see them in 3 months according to the last note. Patient will book appointment with Cardiology for clearance. We will see her in 4 months to discuss colonoscopy and endoscopy. Patient will call our office if she will have any GI concerning symptoms. Patient is agreeable to this plan and verbalizes understanding of instructions. She was given the opportunity to ask questions and all questions answered. ? Thank you for allowing me to participate in her care Refilled pantoprazole take one tablet half an hour before breakfast 40 mg PO DAILY 90 tabs 2RF 90 days K21.9 * TODAY'S VISIT Patient is here today for follow-up in to discuss upper GI series with barium swallow. Patient reports to be feeling fairly well. Patient reports that with pantoprazole she has known reflux. Patient denies having dysphagia except occas ional dysphagia with liquids. Upper GI series showed low esophageal narrowing at the GE junction concerning for lesion or spasm. Patient will need to go for endoscopy. Recently patient has been admitted with chest pain. Just discharged from the hospital few days ago. She is being followed by our cardiology department and has appointment for Holter monitor. History of PAF. Currently patient denies any cardiac or respiratory symptoms. She will need to go also for colonoscopy. Patient denies dyspepsia or odynophagia. Denies melena, hematochezia, unintentional weight loss or ribbon like stools. Patient denies any other GI concerning symptoms. Modified barium swallow was ordered by PCP and patient had that done 3 days after her upper GI series. That test was normal. Speech therapy notes reviewed and no identifiable reason for patient has occasional dysphagia. [facility] Medical History (Updated 05/11/25 @ 10:37 by JOSE E Thorne) Esophageal abnormality Encounter for monitoring denosumab therapy Osteoarthritis of left shoulder History of cardiac monitoring Diastolic heart failure Rheumatoid arthritis flare Abdominal discomfort Left shoulder pain Right wrist pain Right shoulder pain Obesity (BMI 30-39.9) Preoperative clearance Abnormal chest x-ray Obesity Pneumonitis Breast pain, left Diastolic dysfunction Pre-op chest exam Osteoarthritis of shoulders, bilateral Asthma-COPD overlap syndrome Personal history of nicotine dependence History of CVA (cerebrovascular accident) (~2017) ILD (interstitial lung disease) Post-menopausal Hypoxia Seropositive rheumatoid arthritis Right hemiplegia (~2017) Chronic anticoagulation GERD (gastroesophageal reflux disease) Rheumatoid arthritis Obstructive sleep apnea on CPAP Essential hypertension Paroxysmal atrial fibrillation (~2017) Pure hypercholesterolemia Surgical History Cataract History of appendectomy History of foot surgery History of shoulder surgery Family History Father No problems noted. Mother No problems noted. Brother Stomach cancer Social History Household Members: None Housing: Apartment Do you presently have visiting nurse or other home services: Yes Alcohol intake: current Alcohol intake frequency: holidays/special occasions only Alcohol type: wine Patient Tobacco Use Status: Former Tobacco user Tobacco use type: Cigarette Years Smoked: 20 years e-Cigarette/Vaping Use: Never Used Second Hand Smoke Exposure: No service: No Current occupational status: retired Cognitive needs: No Hearing needs: Yes Vision needs: No Review of Systems Const Denies weight gain and Denies weight loss ENT Reports no additional complaints, Reports dysphagia (Occasional with liquids) and Denies odynophagia Card Reports no additional complaints Resp Reports no additional complaints GI Denies abdominal pain, Denies belching, Denies melena, Denies bloating, Denies change in bowel habits, Reports dysphagia (Occasional with liquids), Denies excessive flatus, Denies dyspepsia, Denies heartburn, Reports diarrhea, Denies loose stools, Denies nausea, Denies odynophagia and Denies vomiting Reports no additional complaints Musc Reports no additional complaints Neuro Reports no additional complaints Psych Reports no additional complaints Endo Reports no additional complaints Physical Exam Vital Signs: Last Vital Signs Pulse 68 05/11/25 09:40 BP 116/58 L 05/11/25 09:40 Pulse Ox 97 05/11/25 09:40 Oxygen Delivery Method Room Air 05/11/25 09:40 BMI result Body Mass Index 30.7 Const General: healthy appearing and no acute distress Nutritional Appearance: obese Orientation/consciousness: patient oriented x3 Resp Effort & Inspection: normal respiratory effort, able to speak in complete sentences, no tracheal deviation and symmetric chest movement Auscultation: clear to auscultation bilaterally Cardio Rate: regular rate GI Inspection: Yes normal to inspection, No distended and Yes obesity Palpation (GI): Soft to palpation, not firm, nontender and No hepatosplenomegaly present Auscultation: normal bowel sounds General: Yes no CVA tenderness Back/Spine/Pelvis Back: no CVA tenderness Skin General skin exam: elasticity normal, turgor normal and dry skin Neuro General: patient oriented x3 Psych Appearance: grossly normal Mental Status: mental status grossly normal Results Reviewed Results Reviewed: UPPER GI SERIES WITH BARIUM SWALLOW 04/28/2025 IMPRESSION: Consistent narrowing of GE junction on upright views suspicious for underlying lesion or spasm. Increased gastric secretions likely secondary to a hyper acidity. There is moderate gastroesophageal reflux with transient reducible hiatal hernia MODIFIED BARIUM SWALLOW 05/01/2025 FINDINGS: Following oral administration of various consistencies of food coated with barium especially thick barium, nectar consistency and cracker coated barium and solid food there is normal oral phase with propagation of bolus from the oral cavity through the pharynx and esophagus without laryngeal penetration and aspiration. There is no retention of barium in the valleculae or piriform sinuses. Assessment & Plan Assessment & Plan (1) GERD (gastroesophageal reflux disease): Code(s): K21.9 - Gastro-esophageal reflux disease without esophagitis Category: Medical Qualifiers: Esophagitis presence: esophagitis presence not specified Qualified Code(s): K21.9 - Gastro-esophageal reflux disease without esophagitis (2) Dysphagia: Code(s): R13.10 - Dysphagia, unspecified Category: Medical Qualifiers: Dysphagia type: unspecified Qualified Code(s): R13.10 - Dysphagia, unspecified (3) Chronic GERD: Code(s): K21.9 - Gastro-esophageal reflux disease without esophagitis Category: Medical (4) Esophageal abnormality: Code(s): K22.9 - Disease of esophagus, unspecified Category: Medical Plan Lesion versus spasm seen at GE junction. Patient will be sent for upper endosco py, however she will need to be cleared by Cardiology. Patient has appointment for Holter on monitor on the of this month. She has appointment already scheduled with us on the . She will continue taking pantoprazole as this is helping her. Avoid dietary triggers and to late night snacking. Staying upright for minimal 3 hours after meals discussed with her. Patient will increase fiber in her diet. She is agreeable to this plan and verbalizes understanding of instructions. She was given the opportunity to ask questions and all questions answered. Thank you for allowing me to participate in her care Coding Level of Care Code Est Pt Level 4 (58124) Complex EM visit Add On G2211 Diagnoses Gastroesophageal reflux disease, unspecified whether esophagitis present K21.9 Esophagitis presence: esophagitis presence not specified Dysphagia, unspecified type R13.10 Dysphagia type: unspecified Chronic GERD K21.9 Esophageal abnormality K22.9 Time Spent (min) 35 Comment 25 minute spent with patient and additional 10 minutes spent reviewing her records
[2025-05-11 09:40] VITALS: BP 116/58; PULSE 68; O2SAT 97; BMI 30.7
--- OUTSIDE RECORDS SUMMARY | 2025-05-11 09:43 | XMS_ITS | Clinical Summary ---
Author Organization [facility] Address [address] [place] [address] Care Team Providers Care Head Cd Reactor Operator Name Role Phone Provider, Not In System [...] patient's age to complete this topic Insurance [place] [address] [place] [address] Care Teams Head Cd Reactor Operator Relationship Specialty Start Date End Date Provider, Not In System PCP - General 10/13/22
== END 2025-05-11 10:39 | disposition home or self-care (01) ==
LOC: HO.HGI 09:25
PROVIDERS: PCP Internal Medicine; Visit Provider Nurse Practitioner Family
DX: K21.9 Gastro-esophageal reflux disease without esophagitis (principal); R13.10 Dysphagia, unspecified; K22.9 Disease of esophagus, unspecified
CPT/HCPCS: 99214; G2211

== ENCOUNTER → 2025-05-11 09:24 | Outpatient (BNVA) | payer OTHER, SELFPAY | PROVIDERS: PCP Internal Medicine; Visit Provider Nurse Practitioner Family | DX: K21.9 Gastro-esophageal reflux disease without esophagitis (principal); R13.10 Dysphagia, unspecified; K22.9 Disease of esophagus, unspecified | CPT/HCPCS: 99212 ==

== ENCOUNTER 2025-05-13 08:52 | Outpatient (REF) | payer OTHER, SELFPAY ==
[2025-05-13 11:07] LABS: Hematocrit 37.1 % (37.0-47.0); Hemoglobin 11.5 g/dl (12.0-16.0); Imm Gran Abs Auto 0.02 X10*3/uL (0.00-0.03); Imm Gran Pct Auto 0.2 % (0.0-0.4); Lymphocytes Absolute Auto 2.0 X10*3/uL (1.2-4.9); MANUAL DIFF FLAG SCAN; Mean Corpuscular HGB Conc 31.0 g/dl (31.0-35.0); Mean Corpuscular Hemoglobin 26.4 pg (27.0-33.0); Mean Corpuscular Volume 85.3 fL (80.0-98.0); NRBC Abs Auto 0.000 X10*3/uL (0.0-0.012); NRBC Pct Auto 0.0 /100WBC (0.0-0.2); PLT CLUMP 1; Red Blood Count 4.35 X10*6/uL (4.20-5.50); SCAN SMEAR FLAG 1
[2025-05-13 11:08] LABS: White Blood Count 8.1 X10*3/uL (4.8-10.8)
[2025-05-13 11:25] LABS: Platelet Count 172 X10*3/uL (160-400)
[2025-05-13 11:29] LABS: Alanine Aminotransferase 11 U/L (0-31); Albumin Level 4.2 g/dL (3.5-5.0); Alkaline Phosphatase 52 U/L (39-117); Anion Gap 12 (12-20); Aspartate Amino Transferase 24 U/L (5-31); Blood Urea Nitrogen 14 mg/dL (9-16); Calcium 10.0 mg/dL (8.4-10.2); Carbon Dioxide 23 mmol/L (22-29); Chloride 108 mmol/L (96-108); Estimated Glomerular Filt Rate > 60; Potassium 4.3 mmol/L (3.3-5.1); Sodium 139 mmol/L (135-145); Total Protein 7.9 g/dL (6.5-8.0)
[2025-05-13 11:45] LABS: HBS Num1 1.72 mIU/mL (0-7.99); HBc Num1 0.06 S/CO (0.00-0.79); HBsAGNum1 0.38 S/CO (0.00-0.99); Hepatitis A Antibody IgM 0.47 Index (0-0.79); Hepatitis B Surface Antigen Negative (Negative); ~HepC Num1 0.10 S/CO (0.00-0.79); ~Hepatitis A Antibody IgM Nonreactive (Nonreactive); ~Hepatitis B Surface Antibody NONREACTIVE (Nonreactive); ~Hepatitis C Antibody Nonreactive (Nonreactive)
[2025-05-18 01:19] LABS: TS Negative Control Passed; TS Panel A 0; TS Panel B 0; TS Positive Control Passed; TSpotTB Negative (Negative)
[2025-05-18 11:43] LABS: Vitamin D 25-OH, D2 <4 ng/mL; Vitamin D 25-OH, D3 43 ng/mL; Vitamin D 25-OH, Total 43 ng/mL (30-100)
== END 2025-05-13 08:53 | disposition home or self-care (01) ==
LOC: HO.LAB 08:52
PROVIDERS: Student in an Organized Health Care Education/Training Program; PCP Internal Medicine
DX: I10 Essential (primary) hypertension (principal); R07.9 Chest pain, unspecified; I48.0 Paroxysmal atrial fibrillation; K22.9 Disease of esophagus, unspecified; E83.42 Hypomagnesemia; Z79.01 Long term (current) use of anticoagulants; M05.79 Rheumatoid arthritis with rheumatoid factor of multiple sites without organ or systems involvement; E55.9 Vitamin D deficiency, unspecified
CPT/HCPCS: 36415; 80053; 82306; 85025; 85652; 86140; 86481; 86704; 86706; 86709; 86803; 87340; 99495

== ENCOUNTER 2025-05-13 08:52 | Outpatient (AMB) | payer OTHER, SELFPAY ==
--- NOTE | 2025-05-13 08:56 | A.OFFPC_ITS ---
Vital Signs 05/13/25 08:58 Height 4 ft 11 in Weight 150 lb BMI 30.3 BP 110/60 Blood Pressure Location Lt brachial Position Sitting Pulse 66 Pulse Source Pulse Oximeter Temp 96.9 F Temp Source Temporal Artery Scan Pulse Oximetry (%) 97 Oxygen Delivery Method Room Air Intake Visit Reasons: [facility] 05/08 tachycardia Intake Note: Patient is here for hospital discharge and TCM follow up. Patient was discharged from [facility] on 05/08/25. Yard Pipe Grader Required: Yes Yard Pipe Grader Language: Central Office Supervisor Name: Adri ([id number]) Roofing Machine Tender: Not Required per policy Accompanied by: Self / Same As Patient Allergies No Known Allergies (No Known Allergies*) Allergy (Verified 05/13/25 09:27) Medication List - Last Reconciled 05/13/25 by Dorothy Bethea PA-C abatacept (Orencia ClickJect) 125 mg subcut WE acetaminophen ER 650 mg PO Q6H PRN 30 days atorvastatin 40 mg PO BEDTIME baclofen 10 mg PO TID 30 days [cane As directed] cane As directed [Cock up splint Wear on right wrist at night. ] gabapentin 600 mg PO BID leflunomide 10 mg PO DAILY losartan 100 mg PO DAILY 90 days magnesium gluconate 250 mg (20 x 12.5 mg magne- sium (250 mg)) PO TID metoprolol succinate ER 50 mg See Protocol PO BID nebulizers As directed pantoprazole 40 mg PO DAILY@0630 rivaroxaban (Xarelto) 20 mg PO DAILY@1700 sertraline 25 mg PO DAILY 90 days spironolactone 25 mg See Protocol PO DAILY 90 days Tobacco use date assessed: 05/13/25 Fall risk assessment: No Falls in past year Last assessed Fall Risk: 05/13/25 Dental Screening Dental Screen Date: 11/27/24 HPI [facility] 05/08 tachycardia HPI Details 70-year-old female with past medical his tory of GERD, rheumatoid arthritis, obstructive sleep apnea, hypercholesterolemia, hypertension, history of CVA, asthma-COPD overlap syndrome, major depression, atrial fibrillation last seen 01/[address] Arguelles coming in for hospital discharge follow up. In review of the notes, patient was seen in [facility] ED 05/07/2025 for left-sided chest pain patient was stable and troponin up trending admitted for further evaluation. Echocardiogram was obtained no acute intervention. She is advised to continue on the Xarelto and metoprolol and stop the Tikosyn and follow up with Cardiology for outpatient Holter monitor. She was advised to monitor electrolytes and magnesium level outpatient as these were abnormal and patient was discharged home 05/08/2025. She is Holter monitor scheduled for 06/01/2025 and she will be due for repeat send. She has no acute concerns today and is feeling generally well since her hospitalization. She denies any chest pain, palpitations or any other symptoms. advanced practice provider was used for the duration of this visit Adri ([id number]). TCM TCM Information Date of Discharge 05/10/25 Discharged From [facility] Interactive Contact Date (Reference documentation from this date) 05/11/25 [facility] Medical History Esophageal abnormality Encounter for monitoring denosumab therapy Osteoarthritis of left shoulder History of cardiac monitoring Diastolic heart failure Rheumatoid arthritis flare Abdominal discomfort Left shoulder pain Right wrist pain Right shoulder pain Obesity (BMI 30-39.9) Preoperative clearance Abnormal chest x-ray Obesity Pneumonitis Breast pain, left Diastolic dysfunction Pre-op chest exam Osteoarthritis of shoulders, bilateral Asthma-COPD overlap syndrome Personal history of nicotine dependence History of CVA (cerebrovascular accident) (~2017) ILD (interstitial lung disease) Post-menopausal Hypoxia Seropositive rheumatoid arthritis Right hemiplegia (~2017) Chronic anticoagulation GERD (gastroesophageal reflux disease) Rheumatoid arthritis Obstructive sleep apnea on CPAP Essential hypertension Paroxysmal atrial fibrillation (~2017) Pure hypercholesterolemia Surgical History Cataract History of appendectomy History of foot surgery History of shoulder surgery Family History Father No problems noted. Mother No problems noted. Brother Stomach cancer Social History Household Members: None Housing: Apartment Do you presently have visiting nurse or other home services: Yes Alcohol intake: current Alcohol intake frequency: holidays/special occasions only Alcohol type: wine Patient Tobacco Use Status: Former Tobacco user Tobacco use type: Cigarette Years Smoked: 20 years e-Cigarette/Vaping Use: Never Used Second Hand Smoke Exposure: Yes service: No Current occupational status: retired Cognitive needs: No Hearing needs: Yes Vision needs: No Questionnaire Thrive Questionnaire Date Thrive assessed: 01/22/25 I am a: Patient What is your living situation today?: I have a steady place to live Within the past 12 months, did the food you bought not last and you didn't have the money to get more?: I choose not to answer this question Within the past 12 months, did you worry whether your food would run out before you got money to buy more?: I choose not to answer this question Do you have trouble paying for medicines?: I choose not to answer this question Do you have trouble getting transportation to medical appointments?: I choose not to answer this question Do you have trouble paying your heating and electricity bill?: I choose not to answer this question Do you have trouble taking care of your child, family member or friend?: I choose not to answer this question Do you have trouble with day-to-day activities such as bathing, preparing meals, shopping, managing finances, etc.?: I choose not to answer this question Are you currently unemployed and looking for a job?: I choose not to answer this question Are you interested in more education?: I choose not to answer this question Please select the resources that you would like help with: None Currently or been in a relationship where the following occur: I choose not to answer THRIVE Score: 0 GENNY-7 AMB Questionnaire GENNY-7 Date GENNY - 7 assessed: 11/27/24 Source: Developed by Drs. Kai Mejia, Jade Chneg, Neil Gannon and colleagues, with an educational phil from [employer]. Review of Systems Const Denies body aches, Denies chills, Denies fever(s), Denies headache(s) and Denies poor appetite Eyes Reports no additional complaints ENT Reports dysphagia, Denies dizziness, Denies headache(s) and Denies odynophagia Card Denies chest pain, Denies syncope, Denies edema, Denies irregular heart rhythm, Denies lightheadedness and Denies dyspnea Resp Denies cough and Denies dyspnea GI Denies abdominal pain, Denies constipation, Reports dysphagia, Denies diarrhea, Denies nausea, Denies odynophagia and Denies vomiting Reports no additional complaints Musc Reports no additional complaints and Denies abnormal gait Skin/Breast Reports system reviewed and no additional complaints, except as documented Neuro Denies abnormal gait, Denies dizziness, Denies syncope and Denies headache(s) Psych Reports no additional complaints Physical exam (Primary Care) Vital Signs: Last Vital Signs Temp 96.9 F 05/13/25 08:58 Pulse 66 05/13/25 08:58 BP 110/60 05/13/25 08:58 Pulse Ox 97 05/13/25 08:58 Oxygen Delivery Method Room Air 05/13/25 08:58 BMI result Body Mass Index 30.3 Tobacco/Smoking Status: Tobacco use Status Tobacco use date assessed 05/13/25 05/13/25 09:04 Patient Tobacco Use Status Former Tobacco user 05/13/25 09:04 Tobacco use type Cigarette 05/13/25 09:04 e-Cigarette/Vaping Use Never Used 05/13/25 09:04 Thrive Assessment: Date of Thrive Assessment Date Thrive assessed 01/22/25 05/13/25 09:04 Currently or been in a relationship where the following occur: I choose not to answer Const General: cooperative, healthy appearing, comfortable and no acute distress Orientation/consciousness: patient oriented x3 HENMT Head: Yes normocephalic Ears: hearing grossly normal bilaterally General nose exam: Normal external nose present Eyes General: appearance normal, both eyes and all related structures Conjunctivae: conjunctivae normal Neck Neck: Yes full ROM and Yes no lymphadenopathy Resp Effort & Inspection: normal respiratory effort Auscultation: clear to auscultation bilaterally, no crackles, no rales, no rhonchi and no wheezes Cardio Rate: regular rate Rhythm: regular rhythm Skin General skin exam: no rashes or lesions noted Neuro General: patient oriented x3 Gait exam (Neuro): Normal gait present Extrem General: Yes normal to inspection, Yes full ROM and No edema Psych Affect: normal affect Attitude: cooperative Insight: Good insight present (Psych) Judgement: Good judgement present (Psych) Coding Level of Care Code TCM Mod MDM <= 7 Days Complex EM visit Add On G2211 Diagnoses Essential hypertension I10 Chest pain R07.9 Chest pain type: unspecified Paroxysmal A-fib I48.0 Esophageal abnormality K22.9 Hypomagnesemia E83.42 Assessment & Plan Assessment & Plan (1) Essential hypertension: Code(s): I10 - Essential (primary) hypertension Category: Medical Plan: Continue on current blood pressure medication. Avoid salt intake and encourage healthy diet and regular exercise. (2) Chest pain: Code(s): R07.9 - Chest pain, unspecified Category: Medical Qualifiers: Chest pain type: unspecified Qualified Code(s): R07.9 - Chest pain, unspecified Plan: Chest pain has resolved at this time. Advised patient to continue to monitor her symptoms and reviewed red flag symptoms and when to present for re- evaluation. (3) Paroxysmal A-fib: Code(s): I48.0 - Paroxysmal atrial fibrillation Category: Medical Plan: Patient is currently on Xarelto for full oral anticoagulation and rate control with metoprolol. The dofetilide was discontinued by her education and training coordinator. She will continue to follow with Cardiology (4) Esophageal abnormality: Code(s): K22.9 - Disease of esophagus, unspecified Category: Medical Plan: She is being seen by GI and is scheduled for an urgent endoscopy for esophageal abnormality. She will continue to follow with GI for this concern (5) Hypomagnesemia: Code(s): E83.42 - Hypomagnesemia Category: Medical Plan: Patient would like to have blood work done today I did update the orders as this is a holiday weekend and it will be difficult for her to get to the lab. Plan This note was constructed using voice recognition software. While every effort has been made to ensure accuracy and overseamer, still areas may have been included sometimes these areas may affect the content or meeting of the given symptoms. Total time spent caring for the patient today was 30 minutes. This includes time spent before the visit reviewing the chart, time spent during the visit, and time spent after the visit and documentation. Patient was informed and verbally consented to the use of an ambient scribe for clinic note documentation during this visit. Orders: Orders Basic Metabolic Panel Today E83.42 - Hypomagnesemia Magnesium Today E83.42 - Hypomagnesemia
[2025-05-13 08:58] VITALS: BP 110/60; PULSE 66; TEMP 36.1; O2SAT 97; BMI 30.3
--- OUTSIDE RECORDS SUMMARY | 2025-05-13 09:00 | XMS_ITS | Clinical Summary ---
Author Organization [employer] Address [address] [place] [address] Care Team Providers Care Inside Technical Sales Representative Name Role Phone Provider, Not In System [...] patient's age to complete this topic Insurance [facility] [place] [address] [place] [address] Care Teams Inside Technical Sales Representative Relationship Specialty Start Date End Date Provider, Not In System PCP - General 10/13/22
== END 2025-05-13 09:48 | disposition home or self-care (01) ==
LOC: HO.HMCH 08:53
PROVIDERS: PCP Internal Medicine
DX: I10 Essential (primary) hypertension (principal); R07.9 Chest pain, unspecified; I48.0 Paroxysmal atrial fibrillation; K22.9 Disease of esophagus, unspecified; E83.42 Hypomagnesemia

== ENCOUNTER 2025-05-19 09:14 | Outpatient (REF) | payer OTHER, SELFPAY ==
--- OUTSIDE RECORDS SUMMARY | 2025-05-19 09:39 | XMS_ITS | Clinical Summary ---
Author Organization [employer] Address [address] [place] [address] Care Team Providers Care Energy Audit Advisor Name Role Phone Provider, Not In System [...] 12/05/2021, Additional history exists Influenza Vaccine (#1) 2025 , 10/21/2019, 12/17/2018, Additional history exists RSV [...] patient's age to complete this topic Insurance [facility] [place] [address] [place] [address] Care Teams Energy Audit Advisor Relationship Specialty Start Date End Date Provider, Not In System PCP - General 10/13/22
== END 2025-05-19 09:15 | disposition home or self-care (01) ==
LOC: HO.MAMMO 09:14
PROVIDERS: PCP Internal Medicine; Visit Provider Internal Medicine
DX: Z12.31 Encounter for screening mammogram for malignant neoplasm of breast (principal)
CPT/HCPCS: 77063; 77067

== ENCOUNTER → 2025-05-19 09:17 | Outpatient (BNV) | payer OTHER, SELFPAY | PROVIDERS: PCP Internal Medicine; Visit Provider Internal Medicine | DX: Z12.31 Encounter for screening mammogram for malignant neoplasm of breast (principal) | CPT/HCPCS: 77063; 77067 ==

== ENCOUNTER 2025-05-28 08:47 | Outpatient (AMB) | payer OTHER, SELFPAY ==
--- OUTSIDE RECORDS SUMMARY | 2025-05-28 08:59 | XMS_ITS | Clinical Summary ---
Author Organization [employer] Address [address] [place] [address] Care Team Providers Care Scroll Machine Operator Name Role Phone Provider, Not In [...] patient's age to complete this topic Insurance [facility] [place] [id number] [place] [address] Care Teams Scroll Machine Operator Relationship Specialty Start Date End Date Provider, Not In System PCP - General 10/13/22
--- NOTE | 2025-05-28 09:34 | MHC.OFFVIS ---
Vital Signs 05/28/25 09:39 Height 4 ft 11 in Weight 152 lb 1.903 oz BMI 30.7 BP 115/62 Blood Pressure Location Lt brachial Position Sitting Pulse 67 Pulse Source Pulse Oximeter Pulse Oximetry (%) 97 Oxygen Delivery Method Room Air Intake Visit Reasons: osteoporosis/RA Intake Note: Patient presents for Osteoporosis/RA follow up. Staking Press Operator Required: Yes Staking Press Operator Language: Lab Analyst Services: Staking Press Operator Present Staking Press Operator Name: Josh [id number] Information Interpreted: non-clinical & clinical Allergies No Known Allergies (No Known Allergies*) Allergy (Verified 05/28/25 09:38) Medication List - Last Reconciled 05/28/25 by Catie Nguyen MD abatacept (Orencia ClickJect) 125 mg subcut WE acetaminophen ER 650 mg PO Q6H PRN 30 days atorvastatin 40 mg PO BEDTIME baclofen 10 mg PO TID 30 days [cane As directed] cane As directed [Cock up splint Wear on right wrist at night. ] gabapentin 600 mg PO BID leflunomide 10 mg PO DAILY losartan 100 mg PO DAILY 90 days magnesium gluconate 250 mg (20 x 12.5 mg magne- sium (250 mg)) PO TID metoprolol succinate ER 50 mg See Protocol PO BID nebulizers As directed pantoprazole 40 mg PO DAILY@0630 rivaroxaban (Xarelto) 20 mg PO DAILY@1700 sertraline 25 mg PO DAILY 90 days spironolactone 25 mg See Protocol PO DAILY 90 days HPI Comments Details: Patient is a 69-year-old female with hyperlipidemia, hypertension complicated by CVA and coronary artery disease with subsequent systolic heart failure, paroxysmal atrial flutter/fibrillation on anticoagulation, polyarticular osteoarthritis, and seropositive erosive rheumatoid arthritis here today for follow up Interval History: Patient last seen 01/30/25 with me - Stopped prednisone without any flares - ortho recommending left shoulder surgery revision but patient deferring Today - Has been consistent with the Orencia but patient states that the medication is no longer functioning - Complaining of polyarticular joint pain Rheumatologic History: ++RF +++CCP On Humira from February 2019 to March 2021-discontinued due to congestive heart failure. Orencia started April 2021- present Methotrexate 2018- February 2022 discontinued due to interstitial lung disease Leflunomide added 01/2024 Prednisone stopped 11/2024 Current Rheumatology Medication(s): Orencia 125 mg every week SC Leflunomide 10 mg every day [facility] Medical History Esophageal abnormality Encounter for monitoring denosumab therapy Osteoarthritis of left shoulder History of cardiac monitoring Diastolic heart failure Rheumatoid arthritis flare Abdominal discomfort Left shoulder pain Right wrist pain Right shoulder pain Obesity (BMI 30-39.9) Preoperative clearance Abnormal chest x-ray Obesity Pneumonitis Breast pain, left Diastolic dysfunction Pre-op chest exam Osteoarthritis of shoulders, bilateral Asthma-COPD overlap syndrome Personal history of nicotine dependence History of CVA (cerebrovascular accident) (~2016) ILD (interstitial lung disease) Post-menopausal Hypoxia Seropositive rheumatoid arthritis Right hemiplegia (~2016) Chronic anticoagulation GERD (gastroesophageal reflux disease) Rheumatoid arthritis Obstructive sleep apnea on CPAP Essential hypertension Paroxysmal atrial fibrillation (~2016) Pure hypercholesterolemia Surgical History Cataract History of appendectomy History of foot surgery History of shoulder surgery Family History Father No problems noted. Mother No problems noted. Brother Stomach cancer Social History Household Members: None Housing: Apartment Do you presently have visiting nurse or other home services: Yes Alcohol intake: current Alcohol intake frequency: holidays/special occasions only Alcohol type: wine Patient Tobacco Use Status: Former Tobacco user Tobacco use type: Cigarette Years Smoked: 20 years e-Cigarette/Vaping Use: Never Used Second Hand Smoke Exposure: Yes service: No Current occupational status: retired Cognitive needs: No Hearing needs: Yes Vision needs: No Review of Systems Const Details: Review of Systems Constitutional: Denies fever, chills, weight loss ENT: Denies vision changes, eye pain or eye redness, dental caries, dry mouth GI: Denies nausea, vomiting, diarrhea, abdominal pain, change in BM Pulm: Denies SOB, LEDESMA, hemoptysis, wheezing Cards: Denies chest pain, palpitations Skin: Denies Raynaud's, rash, nail changes, photosensitivity, PILOT STEAM YACHT: Denies headaches, weakness, paresthesias, recurrent falls MSK: as per HPI All other systems reviewed and are unremarkable except noted above Physical Exam Vital Signs: Last Vital Signs Pulse 67 05/28/25 09:39 BP 115/62 05/28/25 09:39 Pulse Ox 97 05/28/25 09:39 Oxygen Delivery Method Room Air 05/28/25 09:39 BMI result Body Mass Index 30.7 Vital signs reviewed Physical Examination CONSTITUITIONAL Patient alert and cooperative. Well appearing and in no apparent painful distress HEENT Conjunctiva and sclera clear. No lymphadenopathy. CHEST/RESPIRATORY SYSTEM Normal respiratory effort and able to speak in complete sentences. Clear to auscultation bilaterally. No crackles, rales, rhonchi, wheezes heard. CARDIAC SYSTEM Regular rate and rhythm. S1 and S2 heard no murmurs. Radial pulses intact bilaterally MSK Hands Right Hand: Able to make a fist. TTP of the 1st MCP with swelling and warmth. No other MCPs affected Left Hand: Able to make a fist. TTP of the 3rd and 5th MCP and scattered PIPs [place] neck deformities noted bilaterally Wrists Right Wrist: Full ROM. 70 degrees of wrist flexion, 80 degrees of wrist extension. No swelling or TTP Left Wrist: Full ROM. 70 degrees of wrist flexion, 80 degrees of wrist extension. No swelling or TTP Elbows Right Elbow: Full ROM. No swelling or TTP. No TTP of the medial and lateral epicondyles Left Elbow: Full ROM. No swelling or TTP. No TTP of the medial and lateral epicondyles Shoulders Right shoulder: Siginificantly reduced ROM with pain to palpation Left shoulder: Full ROM. No swelling noted. No TTP of the AC joint, subacromial bursa or posterior shoulder Knees Right knee: Mild swelling and warmth. Good ROM Left knee: Full ROM. No swelling noted. No TTP of the knee joint lie or pes anserine bursa. Ankles Right ankle: Good ankle dorsiflexion and plantar flexion. No swelling. No TTP of the ankle joint Left ankle: Good ankle dorsiflexion and plantar flexion. No swelling but TTP of the ankle joint Feet Right foot: Negative squeeze test Left foot: Negative squeeze test Tender points? No tenderness to palpation of the bilateral trapezius, supraspinatus, anterior costochondral junctions, bilateral suboccipital muscle insertions SKIN No rashes Results Reviewed Results Reviewed: Laboratory Tests 01/20/25 07/02/25 08:06 10:24 WBC 8.1 RBC 4.35 Hgb 11.5 L Hct 37.1 Plt Count 172 ESR 91 H Sodium 139 Potassium 4.3 Chloride 108 Carbon Dioxide 23 BUN 14 Creatinine 0.64 AST 24 ALT 11 Alkaline Phosphatase 52 C-Reactive Protein 1.02 H 6.14 H 25-OH Vitamin D Total 43 Rheumatology 12/09/18 08:50 Rheumatoid Factor 1013.0 H Cycl Citrul Peptide IgG >250 H Infectious Labs 05/13/25 10:24 Hepatitis A IgM Ab Nonreactive Hep Bs Antigen Negative Hep Bs Antibody NONREACTIVE Hep B Core Total Ab Nonreactive Hepatitis C Ab (EIA) Nonreactive TB Test (T-Spot) Com Negative Assessment & Plan Assessment & Plan (1) Rheumatoid arthritis: Comment: ++RF +++CCP On Humira from February 2019 to March 2021-discontinued due to congestive heart failure. Orencia started April 2021- present Methotrexate 2018- February 2022 discontinued due to interstitial lung disease Leflunomide added 01/2024 Code(s): M06.9 - Rheumatoid arthritis, unspecified Category: Medical Qualifiers: Rheumatoid arthritis location: multiple sites Rheumatoid factor presence: with rheumatoid factor Qualified Code(s): M05.79 - Rheumatoid arthritis with rheumatoid factor of multiple sites without organ or systems involvement Plan: #Seropositive Erosive RA Patient is a 69-year-old female with seropositive erosive rheumatoid arthritis. Patient currently in a flare of disease despite consistency with Orencia. Has moderate disease activity on exam today and inflammatory markers significantly elevated compared to the last visit. We will need to change Orencia because there is a secondary nonresponse. Unable to do TNF inhibitors given her history of heart failure. No history of diverticulitis so we will move forward with Actemra Plan - Actemra 162mg SC every week - Stop leflunomide - Prednisone: take 10mg for 10 days then 5mg for 10 days and stop - RTC 4 months - Labs before next visit: CBC, CMP, ESR, CRP, lipid panel (2) Osteoarthritis of left shoulder: Code(s): M19.012 - Primary osteoarthritis, left shoulder Category: Medical Qualifiers: Osteoarthritis type: primary Qualified Code(s): M19.012 - Primary osteoarthritis, left shoulder Plan: #OA left shoulder Patient with osteoarthritis to the left shoulder status post replacement. Scheduled with ortho for injection Plan - Ortho for follow up - Topical diclofenac 1% qid (3) Osteoporosis: Comment: DEXA 12/2023. Left femur neck -2.3, Left femur total -1.4, AP spine -2.6 Prolia started 01/19/2023 Code(s): M81.0 - Age-related osteoporosis without current pathological fracture Category: Medical Qualifiers: Osteoporosis type: age-related Presence of current pathological fracture: without current pathological fracture Qualified Code(s): M81.0 - Age-related osteoporosis without current pathological fracture Plan: #Osteoporosis without history of fracture Patient with osteoporosis without history of fracture. 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 Benefits include decreased pain, improved mortality, improved quality of life Risks include LFT abnormalities, elevated triglycerides, GI perforations Contraindicated in a patient with history of diverticulitis Monitoring: CBC, CMP, triglycerides Plan I spent 42 minutes reviewing the record and labs, taking a history using the community services officer, examining the patient, discussing the treatment plan, ordering new medication and explaining side effects and documenting in the medical record Medications: New prednisone see taper instructions: Take 1 tablet for 10 days then half tablet for 10 days then stop 10 mg PO DIRECTED 15 tabs 0RF M05.79 - Rheumatoid arthritis with rheumatoid factor of multiple sites without organ or systems involvement tocilizumab (Actemra ACTPen) 162 mg (0.9 mL) subcut QWEEK 3.6 mL 5RF M05.79 - Rheumatoid arthritis with rheumatoid factor of multiple sites without organ or systems involvement Discontinued leflunomide Discontinued Reason: Doctor's Order 10 mg PO DAILY 90 tabs 1RF M06.9 - Rheumatoid arthritis, unspecified Coding Level of Care Code Est Pt Level 5 (76006) Complex EM visit Add On G2211 Diagnoses Rheumatoid arthritis involving multiple sites with positive rheumatoid factor M05.79 Rheumatoid arthritis location: multiple sites Rheumatoid factor presence: with rheumatoid factor Primary osteoarthritis of left shoulder M19.012 Osteoarthritis type: primary Age-related osteoporosis without current pathological fracture M81.0 Osteoporosis type: age-related Presence of current pathological fracture: without current pathological fracture Encounter for monitoring denosumab therapy Z51.81; Z79.620 Encounter for monitoring tocilizumab therapy Z51.81; Z79.620
[2025-05-28 09:39] VITALS: BP 115/62; PULSE 67; O2SAT 97; BMI 30.7
== END 2025-05-28 10:19 | disposition home or self-care (01) ==
LOC: HO.RHE 08:48
PROVIDERS: PCP Internal Medicine; Visit Provider Student in an Organized Health Care Education/Training Program
DX: M05.79 Rheumatoid arthritis with rheumatoid factor of multiple sites without organ or systems involvement (principal); M19.012 Primary osteoarthritis, left shoulder; M81.0 Age-related osteoporosis without current pathological fracture; Z51.81 Encounter for therapeutic drug level monitoring; Z79.620 Long term (current) use of immunosuppressive biologic
CPT/HCPCS: 99215; G2211

== ENCOUNTER → 2025-05-28 08:47 | Outpatient (BNVA) | payer OTHER, SELFPAY | PROVIDERS: PCP Internal Medicine; Visit Provider Student in an Organized Health Care Education/Training Program | DX: M05.79 Rheumatoid arthritis with rheumatoid factor of multiple sites without organ or systems involvement (principal); M81.0 Age-related osteoporosis without current pathological fracture; M19.012 Primary osteoarthritis, left shoulder; Z51.81 Encounter for therapeutic drug level monitoring; Z79.620 Long term (current) use of immunosuppressive biologic | CPT/HCPCS: 99212 ==

== ENCOUNTER → 2025-06-01 09:04 | Outpatient (REF) | payer OTHER, SELFPAY ==
--- NOTE | 2025-06-01 09:08 | HM_ITS ---
Cardiac event monitor Indication: Paroxysmal atrial fibrillation Technique: Patient was hooked up to cardiac event monitor from 06/01/2025 to 07/01/2025 for total period of 30 days. Total wear time was 22.8 days Findings: Baseline was normal sinus rhythm with average heart of 72 beats per minute. Minimal heart rate 46 beats per minute sinus bradycardia in the fastest heart rate of 166 beats per minute about appears to be atrial flutter. Patient was in sinus rhythm 98.8% of the time. No significant pauses or av conduction abnormalities noted. Rare episodes of atrial flutter with fast ventricular rate noted, total burden less than 1%. Occasional PACs noted with total burden of less than 1%. Patient marked the counter 1 time correlating with PAC. Conclusion: 1. Baseline was normal sinus rhythm with average heart rate of 72 beats per minute 2. Intermittent episodes of atrial flutter noted with total burden of less than 1% with maximum heart rate of 166 beats per minute 3. Occasional PACs noted 4. No significant pauses noted 5. Patient marked the event 1 time correlating with PACs MTDD
== END ==
LOC: HO.CARD 09:04
PROVIDERS: Visit Provider Nurse Practitioner Family
DX: I48.0 Paroxysmal atrial fibrillation (principal)
CPT/HCPCS: 93270

== ENCOUNTER → 2025-06-01 09:08 | Outpatient (BNV) | payer OTHER, SELFPAY | PROVIDERS: Visit Provider Internal Medicine Cardiovascular Disease | DX: I48.92 Unspecified atrial flutter (principal); I49.1 Atrial premature depolarization | CPT/HCPCS: 93272 ==

== ENCOUNTER 2025-06-05 09:16 | Outpatient (AMB) | payer OTHER, SELFPAY ==
--- NOTE | 2025-06-05 09:20 | A.OFFVIS_ITS ---
Vital Signs 06/05/25 09:22 Height 4 ft 11 in Weight 152 lb BMI 30.7 BP 116/62 Blood Pressure Location Rt brachial Position Sitting Pulse 64 Pulse Source Pulse Oximeter Pulse Oximetry (%) 97 Oxygen Delivery Method Room Air Intake Visit Reasons: discuss colo/egd Intake Note: ESTABLISHED PATIENT for mgmt of GERD w/ dysphagia. Imaging still needing to be rescheduled. Chief Complaint; Pt denies any changes since last visit. Pt still has not heard from Central Scheduling to book imaging. Pt currently has [place] cardiac [place] [facility] Research Laboratory Technician Required: Yes Research Laboratory Technician Services: Research Laboratory Technician Present Research Laboratory Technician Name: Shereen [id number] Information Interpreted: clinical only Accompanied by: Self / Same As Patient Allergies No Known Allergies (No Known Allergies*) Allergy (Verified 06/05/25 09:21) HPI HPI discuss colo/egd: Details: LAST VISIT: GERD (gastroesophageal reflux disease) Dysphagia Chronic GERD Esophageal abnormality Plan Lesion versus spasm seen at GE junction. Patient will be sent for upper endoscopy, however she will need to be cleared by Cardiology. Patient has appointment for Holter on monitor on the of this month. She has appointment already scheduled with us on the . She will continue taking pantoprazole as this is helping her. Avoid dietary triggers and to late night snacking. Staying upright for minimal 3 hours after meals discussed with her. Patient will increase fiber in her diet. She is agreeable to this plan and verbalizes understanding of instructions. She was given the opportunity to ask questions and all questions answered. ? Thank you for allowing me to participate in her care TODAY'S VISIT Patient is here today for follow-up. Patient reports that she has been feeling well on pantoprazole. Denies any GI concerning symptoms. Patient denies any cardiac symptoms at this moment. Will speak to cardiology providers about clearing her for upper endoscopy. Patient reports to have a good appetite. Denies any nausea or vomiting. Denies any dyspepsia, dysphagia or odynophagia. Denies melena, hematochezia, unintentional weight loss or ribbon like stools. [facility], [facility] Medical History Esophageal abnormality Encounter for monitoring denosumab therapy Osteoarthritis of left shoulder History of cardiac monitoring Diastolic heart failure Rheumatoid arthritis flare Abdominal discomfort Left shoulder pain Right wrist pain Right shoulder pain Obesity (BMI 30-39.9) Preoperative clearance Abnormal chest x-ray Obesity Pneumonitis Breast pain, left Diastolic dysfunction Pre-op chest exam Osteoarthritis of shoulders, bilateral Asthma-COPD overlap syndrome Personal history of nicotine dependence History of CVA (cerebrovascular accident) (~2017) ILD (interstitial lung disease) Post-menopausal Hypoxia Seropositive rheumatoid arthritis Right hemiplegia (~2017) Chronic anticoagulation GERD (gastroesophageal reflux disease) Rheumatoid arthritis Obstructive sleep apnea on CPAP Essential hypertension Paroxysmal atrial fibrillation (~2016) Pure hypercholesterolemia Surgical History Cataract History of appendectomy History of foot surgery History of shoulder surgery Family History Father No problems noted. Mother No problems noted. Brother Stomach cancer Social History Household Members: None Housing: Apartment Do you presently have visiting nurse or other home services: Yes Alcohol intake: current Alcohol intake frequency: holidays/special occasions only Alcohol type: wine Patient Tobacco Use Status: Former Tobacco user Tobacco use type: Cigarette Years Smoked: 20 years e-Cigarette/Vaping Use: Never Used Second Hand Smoke Exposure: Yes service: No Current occupational status: retired Cognitive needs: No Hearing needs: Yes Vision needs: No Review of Systems Const Denies weight gain and Denies weight loss ENT Reports no additional complaints, Reports dysphagia (Occasional with liquids) and Denies odynophagia Card Reports no additional complaints Resp Reports no additional complaints GI Denies abdominal pain, Denies belching, Denies melena, Denies bloating, Denies change in bowel habits, Reports dysphagia (Occasional with liquids), Denies excessive flatus, Denies dyspepsia, Denies heartburn, Reports diarrhea, Denies loose stools, Denies nausea, Denies odynophagia and Denies vomiting Reports no additional complaints Musc Reports no additional complaints Neuro Reports no additional complaints Psych Reports no additional complaints Endo Reports no additional complaints Physical Exam Vital Signs: Last Vital Signs Pulse 64 06/05/25 09:22 BP 116/62 06/05/25 09:22 Pulse Ox 97 06/05/25 09:22 Oxygen Delivery Method Room Air 06/05/25 09:22 BMI result Body Mass Index 30.7 Const General: healthy appearing and no acute distress Nutritional Appearance: obese Orientation/consciousness: patient oriented x3 Resp Effort & Inspection: normal respiratory effort, able to speak in complete sentences, no tracheal deviation and symmetric chest movement Auscultation: clear to auscultation bilaterally Cardio Rate: regular rate GI Inspection: Yes normal to inspection, No distended and Yes obesity Palpation (GI): Soft to palpation, not firm, nontender and No hepatosplenomegaly present Auscultation: normal bowel sounds General: Yes no CVA tenderness Back/Spine/Pelvis Back: no CVA tenderness Skin General skin exam: elasticity normal, turgor normal and dry skin Neuro General: patient oriented x3 Psych Appearance: grossly normal Mental Status: mental status grossly normal Assessment & Plan Assessment & Plan (1) GERD (gastroesophageal reflux disease): Code(s): K21.9 - Gastro-esophageal reflux disease without esophagitis Category: Medical Qualifiers: Esophagitis presence: esophagitis presence not specified Qualified Code(s): K21.9 - Gastro-esophageal reflux disease without esophagitis (2) Dysphagia: Code(s): R13.10 - Dysphagia, unspecified Category: Medical Qualifiers: Dysphagia type: unspecified Qualified Code(s): R13.10 - Dysphagia, unspecified (3) Chronic GERD: Code(s): K21.9 - Gastro-esophageal reflux disease without esophagitis Category: Medical (4) Esophageal abnormality: Code(s): K22.9 - Disease of esophagus, unspecified Category: Medical Plan Continue pantoprazole daily. Avoid dietary triggers and late night snacking. Staying upright for minimum 3 hours after meals discussed with patient. Will speak to Anay Wright NP from cardiology if able send patient for upper endoscopy due to abnormal findings on upper endoscopy. ? Lesion found at GE junction that needs to be evaluated. Message sent to surgical schedulers to book procedure for patient. Patient is agreeable to current plan of care and verbalizes understanding of instructions. She was given the opportunity to ask questions and all questions answered. Thank you for allowing me to participate in her care Coding Level of Care Code Est Pt Level 3 (52817) Diagnoses Gastroesophageal reflux disease, unspecified whether esophagitis present K21.9 Esophagitis presence: esophagitis presence not specified Dysphagia, unspecified type R13.10 Dysphagia type: unspecified Chronic GERD K21.9 Esophageal abnormality K22.9 Time Spent (min) 30 Comment 20 minutes spent with patient and additional 10 minutes spent reviewing her records
[2025-06-05 09:22] VITALS: BP 116/62; PULSE 64; O2SAT 97; BMI 30.7
--- OUTSIDE RECORDS SUMMARY | 2025-06-05 09:31 | XMS_ITS | Clinical Summary ---
Author Organization [employer] Address [address] [place] [address] Care Team Providers Care Chain Mortiser Operator Name Role Phone Provider, Not In [...] patient's age to complete this topic Insurance [facility] [place] [address] [place] [address] Care Teams Chain Mortiser Operator Relationship Specialty Start Date End Date Provider, Not In System PCP - General 10/13/22
== END 2025-06-05 10:17 | disposition home or self-care (01) ==
LOC: HO.HGI 09:17
PROVIDERS: PCP Internal Medicine; Visit Provider Nurse Practitioner Family
DX: K21.9 Gastro-esophageal reflux disease without esophagitis (principal); R13.10 Dysphagia, unspecified; K22.9 Disease of esophagus, unspecified
CPT/HCPCS: 99213

== ENCOUNTER → 2025-06-05 09:16 | Outpatient (BNVA) | payer OTHER, SELFPAY | PROVIDERS: PCP Internal Medicine; Visit Provider Nurse Practitioner Family | DX: K21.9 Gastro-esophageal reflux disease without esophagitis (principal); K22.9 Disease of esophagus, unspecified; R13.10 Dysphagia, unspecified; Z79.899 Other long term (current) drug therapy | CPT/HCPCS: 99212 ==

== ENCOUNTER 2025-06-26 09:14 | Day surgery (SDC) | payer OTHER, SELFPAY ==
[2025-06-23 15:53] VITALS: BMI 30.7
[2025-06-24 14:20] VITALS: BMI 30.7
--- NOTE | 2025-06-25 08:41 | HO.ANESPROP2 ---
Documented by User: Ariana Beltrán NP 06/25/25 08:44 HPI - Anesthesia Eval Consult details Narrative: 70yo F for Upper Endoscopy Cardiac optimized. Follows [facility] [place] Cardiology for HF and PAF (xarelto and s/p ablation). Recent breakthrough afib with RVR during [facility] [place] admit and on holter. Meds adjusted. 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) Encounter for monitoring denosumab therapy (Acute) Osteoarthritis of left shoulder (Acute) Pre-op evaluation (Acute) Hospital discharge follow-up (Acute) Hearing loss (Acute) Blurry vision (Acute) Chronic GERD (Acute) Dysphagia (Acute) Hospital discharge follow-up (Acute) History of cardiac monitoring (Acute) Visit for monitoring Tikosyn therapy (Acute) Paroxysmal atrial flutter (Acute) Elevated troponin (Acute) Chest pain (Acute) Physical exam (Acute) Blurry vision (Acute) Hearing loss (Acute) Bursitis of right shoulder (Acute) Long-term use of immunosuppressant medication (Acute) Osteoarthritis of right glenohumeral joint (Acute) Mobitz I (Acute) Carpal tunnel syndrome of right wrist (Acute) Cubital tunnel syndrome on right (Acute) Mild recurrent major depression (Acute) Osteoporosis (Acute) Osteoarthritis of shoulders, bilateral (Acute) Asthma-COPD overlap syndrome (Acute) History of CVA (cerebrovascular accident) (Acute ~2017) Right hemiplegia (Acute ~2017) Chronic anticoagulation (Acute) Essential hypertension (Acute) Pure hypercholesterolemia (Acute) Hypoxia (Acute) Obstructive sleep apnea on CPAP (Acute) Personal history of nicotine dependence (Acute) GERD (gastroesophageal reflux disease) (Acute) Rheumatoid arthritis (Acute) Post-menopausal (Acute) Past Medical History Medical History Esophageal abnormality Encounter for monitoring denosumab therapy Osteoarthritis of left shoulder History of cardiac monitoring Diastolic heart failure Rheumatoid arthritis flare Abdominal discomfort Left shoulder pain Right wrist pain Right shoulder pain Obesity (BMI 30-39.9) Preoperative clearance Abnormal chest x-ray Obesity Pneumonitis Breast pain, left Diastolic dysfunction Pre-op chest exam Osteoarthritis of shoulders, bilateral Asthma-COPD overlap syndrome Personal history of nicotine dependence History of CVA (cerebrovascular accident) (~2016) ILD (interstitial lung disease) Post-menopausal Hypoxia Seropositive rheumatoid arthritis Right hemiplegia (~2016) Chronic anticoagulation GERD (gastroesophageal reflux disease) Rheumatoid arthritis Obstructive sleep apnea on CPAP Essential hypertension Paroxysmal atrial fibrillation (~2016) Pure hypercholesterolemia Family History Family History Father No problems noted. Mother No problems noted. Brother Stomach cancer Family history of problems with anesthesia: No Surgical History Surgical History Cataract History of appendectomy History of foot surgery History of shoulder surgery History of Problems with Anesthesia: No Social History Social History Household Members: None Housing: Apartment Are you a primary pharmacist critical care to a significant other at home: No Do you presently have visiting nurse or other home services: No Alcohol intake: current Alcohol intake frequency: holidays/special occasions only Alcohol type: wine Patient Tobacco Use Status: Former Tobacco user Tobacco use type: Cigarette Years Smoked: 20 years Smoked in Last 30 Days: No e-Cigarette/Vaping Use: Never Used Second Hand Smoke Exposure: Yes Use of substances other than those prescribed or required for medical reasons: No Have you been hit, kicked, punched, or otherwise hurt by someone within the past year? If so, by whom?: No Are you DNR?: No Advance Directives: No Advance Directives Information Provided: Yes Advance Directives on File: No service: No Current occupational status: retired Cognitive needs: No Hearing needs: Yes Vision needs: No Meds Allergies Allergy/AdvReac Type Severity Reaction Status Date / Time No Known Allergies (No Known Allergy Verified 06/24/25 14:18 Allergies*) Home Medications ?Medication ?Instructions ?Recorded ?Confirmed ?Last Taken ?Type nebulizers 08/05/24 05/28/25 Unknown History gabapentin 600 mg tablet 600 mg PO BID Pain 05/07/25 06/24/25 05/07/25 History pantoprazole 40 mg tablet,delayed 40 mg PO DAILY@0630 05/07/25 06/24/25 05/07/25 History release rivaroxaban 20 mg tablet (Xarelto) 20 mg PO DAILY@1700 05/07/25 06/24/25 06/23/25 History dofetilide 500 mcg capsule 500 mcg PO Q12H 06/24/25 06/24/25 Unknown History losartan 100 mg tablet 100 mg PO DAILY 06/24/25 06/24/25 Unknown History Exam Height,Weight and Vital Signs: Height 4 ft 11 in Weight 68.946 kg Pertinent Lab Results Pertinent Lab Results: Laboratory Tests 05/13/25 10:24 WBC 8.1 Hgb 11.5 L Hct 37.1 Plt Count 172 Sodium 139 Potassium 4.3 Chloride 108 Carbon Dioxide 23 BUN 14 Creatinine 0.64 Narrative Narrative: EKG 04/2025 Vent. Rate : 69 BPM Atrial Rate : 69 BPM P-R Int : 148 ms QRS Dur : 62 ms QT Int : 426 ms P-R-T Axes : 23 17 74 degrees QTcB Int : 456 ms Normal sinus rhythm Low voltage QRS Borderline ECG When compared with ECG of 07-May-2025 06:15, QT has shortened ECHO 04/2025 Conclusions: - The left ventricular systolic function is hyperdynamic. The visually estimated ejection fraction is >70%. - The left atrium is severely dilated. - There is moderate calcification of the aortic valve. - There is severe mitral annular calcification. - Mild pulmonary hypertension is present. Assessment and Plan Assessment Anesthesia Assessment: Chart Reviewed Final Anesthetic Review Family History of Problems with Anesthesia: No History of Problems with Anesthesia: No Documented by User: Zen Chavez MD 06/26/25 11:33 HPI - Anesthesia Eval Anesthesia Pre-Procedure Meds If yes to any meds - educate patient: Pt education - increased risk of aspiration and/or euvolemic DKA [facility] Past Medical History Medical History Esophageal abnormality Encounter for monitoring denosumab therapy Osteoarthritis of left shoulder History of cardiac monitoring Diastolic heart failure Rheumatoid arthritis flare Abdominal discomfort Left shoulder pain Right wrist pain Right shoulder pain Obesity (BMI 30-39.9) Preoperative clearance Abnormal chest x-ray Obesity Pneumonitis Breast pain, left Diastolic dysfunction Pre-op chest exam Osteoarthritis of shoulders, bilateral Asthma-COPD overlap syndrome Personal history of nicotine dependence History of CVA (cerebrovascular accident) (~2016) ILD (interstitial lung disease) Post-menopausal Hypoxia Seropositive rheumatoid arthritis Right hemiplegia (~2017) Chronic anticoagulation GERD (gastroesophageal reflux disease) Rheumatoid arthritis Obstructive sleep apnea on CPAP Essential hypertension Paroxysmal atrial fibrillation (~2017) Pure hypercholesterolemia Functional capacity: independent ambulation Family History Family History Father No problems noted. Mother No problems noted. Brother Stomach cancer Surgical History Surgical History Cataract History of appendectomy History of foot surgery History of shoulder surgery Social History Social History Household Members: None Housing: Apartment Are you a primary pharmacist critical care to a significant other at home: No Do you presently have visiting nurse or other home services: No Alcohol intake: current Alcohol intake frequency: holidays/special occasions only Alcohol type: wine Patient Tobacco Use Status: Former Tobacco user Tobacco use type: Cigarette Years Smoked: 20 years Smoked in Last 30 Days: No e-Cigarette/Vaping Use: Never Used Second Hand Smoke Exposure: Yes Use of substances other than those prescribed or required for medical reasons: No Have you been hit, kicked, punched, or otherwise hurt by someone within the past year? If so, by whom?: No Are you DNR?: No Advance Directives: No Advance Directives Information Provided: Yes Advance Directives on File: No service: No Current occupational status: retired Cognitive needs: No Hearing needs: Yes Vision needs: No Travel History History of recent travel: No Recent Travel in [facility] Within the Last 8 Weeks: No Exposure or Possible Exposure to Illness During Travel: No History of Being in a Healthcare Facility as a Patient, Worker, or Visitor during Travel: No Medical Treatment Received for Symptoms/Illness Related to Travel: No Meds Allergies Allergy/AdvReac Type Severity Reaction Status Date / Time No Known Allergies (No Known Allergy Verified 06/24/25 14:18 Allergies*) Home Medications ?Medication ?Instructions ?Recorded ?Confirmed ?Last Taken ?Type nebulizers 08/05/24 05/28/25 Unknown History gabapentin 600 mg tablet 600 mg PO BID Pain 05/07/25 06/24/25 05/07/25 History pantoprazole 40 mg tablet,delayed 40 mg PO DAILY@0630 05/07/25 06/24/25 05/07/25 History release rivaroxaban 20 mg tablet (Xarelto) 20 mg PO DAILY@1700 05/07/25 06/24/25 06/23/25 History dofetilide 500 mcg capsule 500 mcg PO Q12H 06/24/25 06/24/25 Unknown History losartan 100 mg tablet 100 mg PO DAILY 06/24/25 06/24/25 Unknown History Exam Exam Date and Time: Airway Mallampati Class: II TM Dist: >3cm Neck ROM: Full Loose/Missing/Broken Teeth: No (no teeth) Heart: rrr Lungs: cta Assessment and Plan Final Anesthetic Review NPO: Yes ASA Class: II Final Preanesthetic Review: No Changes in Pt Med Stat, Meds/Allgs Chart Reviewed, Consent Obtained/Reviewed and Anes Risks/Benef Reviewed Patient Risk: Low Procedure Risk: Low Anesthetic Plan Anesthetic Plan: MAC: Disposition: Standard PACU
[2025-06-26 09:39] VITALS: BP 109/68; PULSE 58; RESP 16; TEMP 35.7; O2SAT 97
[2025-06-26] MEDS: Lactated Ringers 1,000 ML 50 ML IVCONT (09:41)
--- NOTE | 2025-06-26 09:44 | MHC.SHP ---
Pre-Procedural Eval Section A - 24 Hr Update-Section A only Date of Service: 06/26/25 Section B - Complete if H&P > 30 days Chief Complaint: Disease of esophagus,gerd,dysphagia Details of Present Illness: Esophageal abnormality Encounter for monitoring denosumab therapy Osteoarthritis of left shoulder History of cardiac monitoring Diastolic heart failure Rheumatoid arthritis flare Abdominal discomfort Left shoulder pain Right wrist pain Right shoulder pain Obesity (BMI 30-39.9) Preoperative clearance Abnormal chest x-ray Obesity Pneumonitis Breast pain, left Diastolic dysfunction Pre-op chest exam Osteoarthritis of shoulders, bilateral Asthma-COPD overlap syndrome Personal history of nicotine dependence History of CVA (cerebrovascular accident) (~2016) ILD (interstitial lung disease) Post-menopausal Hypoxia Seropositive rheumatoid arthritis Right hemiplegia (~2016) Chronic anticoagulation GERD (gastroesophageal reflux disease) Rheumatoid arthritis Obstructive sleep apnea on CPAP Essential hypertension Paroxysmal atrial fibrillation (~2016) Pure hypercholesterolemia Surgical History Cataract History of appendectomy History of foot surgery History of shoulder surgery Present Medications: see Short Stay Collaborative assessment Allergies: Allergies Allergy/AdvReac Type Severity Reaction Status Date / Time No Known Allergies (No Known Allergy Verified 06/24/25 14:18 Allergies*) Review of Systems Review of Systems Comment: Ten point ROS negative Exam Exam Comment: Gen appear: No acute distress HEENT: no icterus Chest: No overt resp distress Abd: soft, nontender, nondistended Psych: Stable affect, answering questions appropriately Neuro: A/Ox3 noted to move all extremities spontaneously Ext: no peripheral edema Plan Diagnosis/Plan: Unchanged I have reviewed the history and physical and performed a pertinent physical examination on my patient. No changes have occurred unless specified. Time Spent With Patient Time: Total time managing care of this patient today ____ minutes.
--- NOTE | 2025-06-26 11:00 | P.CONAN_ITS ---
[facility] Active Problems Active Problems: All Active Problems Esophageal abnormality (Acute) Hypomagnesemia (Acute) Atrial fibrillation with rapid ventricular response (Acute) Elevated troponin (Acute) Paroxysmal A-fib (Acute) Preop cardiovascular exam (Acute) Chronic pain syndrome (Acute) Left shoulder pain (Acute) Physical exam (Acute) History of reverse total replacement of left shoulder joint (Acute) Encounter for monitoring denosumab therapy (Acute) Osteoarthritis of left shoulder (Acute) Pre-op evaluation (Acute) Hospital discharge follow-up (Acute) Hearing loss (Acute) Blurry vision (Acute) Chronic GERD (Acute) Dysphagia (Acute) Hospital discharge follow-up (Acute) History of cardiac monitoring (Acute) Visit for monitoring Tikosyn therapy (Acute) Paroxysmal atrial flutter (Acute) Elevated troponin (Acute) Chest pain (Acute) Physical exam (Acute) Blurry vision (Acute) Hearing loss (Acute) Bursitis of right shoulder (Acute) Long-term use of immunosuppressant medication (Acute) Osteoarthritis of right glenohumeral joint (Acute) Mobitz I (Acute) Carpal tunnel syndrome of right wrist (Acute) Cubital tunnel syndrome on right (Acute) Mild recurrent major depression (Acute) Osteoporosis (Acute) Osteoarthritis of shoulders, bilateral (Acute) Asthma-COPD overlap syndrome (Acute) History of CVA (cerebrovascular accident) (Acute ~2017) Right hemiplegia (Acute ~2017) Chronic anticoagulation (Acute) Essential hypertension (Acute) Pure hypercholesterolemia (Acute) Hypoxia (Acute) Obstructive sleep apnea on CPAP (Acute) Personal history of nicotine dependence (Acute) GERD (gastroesophageal reflux disease) (Acute) Rheumatoid arthritis (Acute) Post-menopausal (Acute) Past Medical History Medical History Esophageal abnormality Encounter for monitoring denosumab therapy Osteoarthritis of left shoulder History of cardiac monitoring Diastolic heart failure Rheumatoid arthritis flare Abdominal discomfort Left shoulder pain Right wrist pain Right shoulder pain Obesity (BMI 30-39.9) Preoperative clearance Abnormal chest x-ray Obesity Pneumonitis Breast pain, left Diastolic dysfunction Pre-op chest exam Osteoarthritis of shoulders, bilateral Asthma-COPD overlap syndrome Personal history of nicotine dependence History of CVA (cerebrovascular accident) (~2017) ILD (interstitial lung disease) Post-menopausal Hypoxia Seropositive rheumatoid arthritis Right hemiplegia (~2017) Chronic anticoagulation GERD (gastroesophageal reflux disease) Rheumatoid arthritis Obstructive sleep apnea on CPAP Essential hypertension Paroxysmal atrial fibrillation (~2017) Pure hypercholesterolemia Functional capacity: uses cane/walker Family History Family History Father No problems noted. Mother No problems noted. Brother Stomach cancer Family history of problems with anesthesia: No Surgical History Surgical History Cataract History of appendectomy History of foot surgery History of shoulder surgery History of Problems with Anesthesia: No Social History Social History Household Members: None Housing: Apartment Are you a primary zoo caretaker to a significant other at home: No Do you presently have visiting nurse or other home services: No Alcohol intake: current Alcohol intake frequency: holidays/special occasions only Alcohol type: wine Patient Tobacco Use Status: Former Tobacco user Tobacco use type: Cigarette Years Smoked: 20 years Smoked in Last 30 Days: No e-Cigarette/Vaping Use: Never Used Second Hand Smoke Exposure: Yes Use of substances other than those prescribed or required for medical reasons: No Have you been hit, kicked, punched, or otherwise hurt by someone within the past year? If so, by whom?: No Are you DNR?: No Advance Directives: No Advance Directives Information Provided: Yes Advance Directives on File: No service: No Current occupational status: retired Cognitive needs: No Hearing needs: Yes Vision needs: No Meds Allergies Allergy/AdvReac Type Severity Reaction Status Date / Time No Known Allergies (No Known Allergy Verified 06/24/25 14:18 Allergies*) Active Medications: Current Medications Albuterol Sulfate (Albuterol Sulfate (0.083%) 2.5 Mg/3 Ml Vial.Neb) 2.5 mg INHALE ONCE PRN PRN Reason: Shortness of Breath/Wheezing Lactated Ringer's (Lr) 1,000 mls @ 50 mls/hr IVCONT .Q20H RIAZ Last Admin: 06/26/25 09:41 Dose: 50 mls/hr Home Medications ?Medication ?Instructions ?Recorded ?Confirmed ?Last Taken ?Type nebulizers 08/05/24 05/28/25 Unknown H istory gabapentin 600 mg tablet 600 mg PO BID Pain 05/07/25 06/24/2505/07/25 History pantoprazole 40 mg tablet,delayed 40 mg PO DAILY@0630 05/07/25 06/24/25 05/07/25 History release rivaroxaban 20 mg tablet (Xarelto) 20 mg PO DAILY@1700 05/07/25 06/24/25 5 History dofetilide 500 mcg capsule 500 mcg PO Q12H 06/24/25 Unknown History losartan 100 mg tablet 100 mg PO DAILY 06/24/25 Unknown History Exam Height,Weight and Vital Signs: Height 4 ft 11 in Weight 68.946 kg Last Vital Signs Temp 96.3 F L 06/26/25 09:39 Pulse 58 06/26/25 09:39 Resp 16 06/26/25 09:39 BP 109/68 06/26/25 09:39 Pulse Ox 97 06/26/25 09:39 O2 Del Method Room Air 06/26/25 09:39 Assessment and Plan Final Anesthetic Review Family History of Problems with Anesthesia: No History of Problems with Anesthesia: No
--- NOTE | 2025-06-26 11:08 | P.OP_ITS ---
Operative Note Operative Note Date of Service: 06/26/25 Narrative: Procedure: Esophagogastroduodenoscopy Endoscopist: Sakina Flores MD Indication: Abnormal barium swallow Anesthesia Provider: Dr Chavez Anesthesia Type: MAC ?? EGD Procedure:?? The procedure, indications, preparation and potential complications were reviewed with the patient with the help of translator interpreter, who indicated understanding and gave written informed consent to proceed. A physical exam was performed. The endoscope was introduced through the mouth, and advanced to the second part of duodenum. The mucosa was carefully examined on slow withdrawal of the endoscope. The patient tolerated the procedure well. There were no immediate complications.? ? EGD Findings:? * Esophagus:? Normal mucosa noted in the entire esophagus. Mild narrowing was noted at the level of GE junction. The Z line was at 34 cm and displaced by a small hiatal hernia with the diaphragmatic pinch at 36 cm. Cold forceps biopsies were taken from the lower esophagus. * Stomach:? Normal mucosa was noted in the stomach. Retroflexion was performed in the cardia. * Duodenum:? Normal mucosa was noted in the whole of the examined duodenum. Additional intervention: A through the scope balloon was passed through the biopsy channel and advanced with the GE junction. The esophagus was incrementally dilated from 15 mm to 18 mm. A small tear was noted at the GE junction confirming successful dilation. ? EGD Impressions:? * Normal esophageal mucosa (biopsy) * GE junction stricture (dilation) * Hiatal hernia * Normal stomach * Normal duodenum ?? Recommendations:?? * Follow biopsy results. Our office will call or send a letter with results within 7-10 days. * Avoid NSAIDs * Repeat EGD can be arranged as needed for recurrence of symptoms Above has been reviewed with the patient.
[2025-06-26 11:28] VITALS: BP 124/59; PULSE 65; RESP 18; TEMP 36.1; O2SAT 99
[2025-06-26 11:40] VITALS: BP 128/75; PULSE 78; RESP 12; TEMP 36.1; O2SAT 97
[2025-06-26 11:51] VITALS: BP 120/64; PULSE 59; RESP 16; TEMP 36.1; O2SAT 95
== END 2025-06-26 12:24 | disposition home or self-care (01) ==
PROVIDERS: PCP Internal Medicine; Visit Provider Internal Medicine
PROC: 0DJ08ZZ Inspection of Upper Intestinal Tract, Via Natural or Artificial Opening Endoscopic (ICD-10-PCS; CPT 43235; principal; 2025-06-26 11:00)
DX: R13.10 Dysphagia, unspecified (principal); K22.2 Esophageal obstruction; K22.9 Disease of esophagus, unspecified; K44.9 Diaphragmatic hernia without obstruction or gangrene; K21.9 Gastro-esophageal reflux disease without esophagitis; I10 Essential (primary) hypertension; E78.00 Pure hypercholesterolemia, unspecified; I48.0 Paroxysmal atrial fibrillation; J44.9 Chronic obstructive pulmonary disease, unspecified; G47.33 Obstructive sleep apnea (adult) (pediatric); Z99.89 Dependence on other enabling machines and devices; Z86.73 Personal history of transient ischemic attack (TIA), and cerebral infarction without residual deficits; Z87.891 Personal history of nicotine dependence; Z79.02 Long term (current) use of antithrombotics/antiplatelets; Z79.60 Long term (current) use of unspecified immunomodulators and immunosuppressants; Z79.899 Other long term (current) drug therapy; Z79.01 Long term (current) use of anticoagulants
CPT/HCPCS: 43249; 43239; 88305; C1726; J2003; J2704; J3010

== ENCOUNTER → 2025-06-26 09:14 | Outpatient (BNV) | payer OTHER, SELFPAY | PROVIDERS: PCP Internal Medicine; Visit Provider Internal Medicine | DX: R13.10 Dysphagia, unspecified (principal); K44.9 Diaphragmatic hernia without obstruction or gangrene; K22.2 Esophageal obstruction | CPT/HCPCS: 43239; 43249 ==

== ENCOUNTER 2025-06-28 21:05 | Inpatient (IN) | payer OTHER, SELFPAY ==
--- NOTE | 2025-06-28 | ECG_ITS ---
Test Reason : chest pain Blood Pressure : */* mmHG Vent. Rate : 139 BPM Atrial Rate : * BPM P-R Int : * ms QRS Dur : 62 ms QT Int : 298 ms P-R-T Axes : * 28 90 degrees QTcB Int : 453 ms Atrial flutter Low voltage QRS Nonspecific ST and T wave abnormality Abnormal ECG When compared with ECG of 07-May-2025 16:33, Vent. rate has increased by 70 bpm Nonspecific T wave abnormality now evident in Inferior leads Referred By: Generic ED Physician Electronically Signed By: PARIS RAIN MD
--- NOTE | 2025-06-28 | ECG_ITS ---
Test Reason : REPEAT Blood Pressure : */* mmHG Vent. Rate : 64 BPM Atrial Rate : 64 BPM P-R Int : 232 ms QRS Dur : 64 ms QT Int : 430 ms P-R-T Axes : 91 18 86 degrees QTcB Int : 443 ms Sinus rhythm with 1st degree A-V block with Premature atrial complexes Low voltage QRS Borderline ECG When compared with ECG of 28-Jun-2025 21:16, Premature atrial complexes are now Present Vent. rate has decreased by 75 bpm Nonspecific T wave abnormality no longer evident in Inferior leads Normal sinus rhythm has replaced Atrial flutter Referred By: Zechariah Portillo Electronically Signed By: PARIS RAIN MD
--- NOTE | ~2025-06-28 | XR_ITS ---
EXAMINATION: XR CHEST CLINICAL INFORMATION: Rapid a flutter COMPARISON: None available. TECHNIQUE: Frontal view of the chest was obtained. FINDINGS: There is mild cardiac enlargement. Mediastinal and hilar contours appear normal. Aortic mural calcifications. Lungs are diffusely hyperaerated bilaterally. There are coarsened bronchovascular markings bilaterally, most notable in the right upper lobe distribution. These are stable. No pneumothorax or effusion. No focal osseous or soft tissue abnormality. Severe degenerative changes right shoulder. Total reverse left shoulder arthroplasty. XR/XR chest 1V IMPRESSION: 1. Pulmonary hyperaeration with chronic parenchymal opacities bilaterally, most notable right upper lung distribution. Findings are most consistent with chronic lung disease. 2. Mild cardiac enlargement. Electronically signed by: Zechariah Nguyen MD 06/29/2025 09:13 AM EDT
[2025-06-28 21:07] VITALS: BP 94/68; PULSE 152; O2SAT 94
[2025-06-28 21:35] VITALS: BP 94/73; PULSE 137; RESP 19; TEMP 37.1; O2SAT 97; BMI 31.9
[2025-06-28 21:44] LABS: Hematocrit 39.0 % (37.0-47.0); Hemoglobin 12.5 g/dl (12.0-16.0); Mean Corpuscular HGB Conc 32.1 g/dl (31.0-35.0); Mean Corpuscular Hemoglobin 26.4 pg (27.0-33.0); Mean Corpuscular Volume 82.5 fL (80.0-98.0); NRBC Abs Auto 0.000 X10*3/uL (0.0-0.012); NRBC Pct Auto 0.0 /100WBC (0.0-0.2); Platelet Count 121 X10*3/uL (160-400); Red Blood Count 4.73 X10*6/uL (4.20-5.50); White Blood Count 7.0 X10*3/uL (4.8-10.8)
--- NOTE | 2025-06-28 21:44 | ED.DIZZY ---
HPI - Dizziness General Chief Complaint: Dizziness Stated Complaint: chest pain and dizziness since 4 am Time Seen by Provider: 06/28/25 21:33 Source: patient Mode of arrival: ambulatory Limitations: no limitations History of Present Illness ED Provider: Zechariah ALVAREZ HPI Narrative: The patient is a 70-year-old female with history of paroxysmal atrial fibrillation with RVR, GERD, previous CVA, anticoagulated on Xarelto, hypertension, hyperlipidemia, LOW with CPAP, and rheumatoid arthritis, presenting to the ED for evaluation of dizziness which began at 04:00 today when she was using the bathroom. Patient reports associated rapid heart palpitations sensation. Patient reports she has been seen for this previously, was on a Holter monitor for the past 3 weeks but discontinued this on Sunday due to a developing rash and itchiness. The patient is followed by cardiology here at [facility]. The patient denies associated chest pain, shortness of breath, abdominal pain, nausea, vomiting, fever/chills, back pain, or other acute somatic complaint. Patient is noted to be borderline hypotensive upon arrival with heart rate 140. Related Data Home Medications ?Medication ?Instructions ?Recorded ?Confirmed nebulizers 08/05/24 05/28/25 gabapentin 600 mg tablet 600 mg PO BID Pain 05/07/25 06/24/25 pantoprazole 40 mg tablet,delayed 40 mg PO DAILY@0630 05/07/25 06/24/25 release rivaroxaban 20 mg tablet (Xarelto) 20 mg PO DAILY@1700 05/07/25 06/24/25 dofetilide 500 mcg capsule 500 mcg PO Q12H 06/24/25 06/24/25 losartan 100 mg tablet 100 mg PO DAILY 06/24/25 06/24/25 Previous Rx's ?Medication ?Instructions ?Recorded Cock up splint #1 ea 04/12/22 cane #1 ea 08/30/23 cane #1 ea 04/01/24 atorvastatin 40 mg tablet 40 mg PO BEDTIME #90 tabs 01/22/25 sertraline 25 mg tablet 25 mg PO DAILY 90 days #90 tabs 01/22/25 baclofen 10 mg tablet 10 mg PO TID 30 days #90 tabs 02/05/25 acetaminophen 650 mg 650 mg PO Q6H PRN for pain 30 days 02/20/25 tablet,extended release #120 tabs spironolactone 25 mg tablet 25 mg PO DAILY 90 days #90 tabs 02/20/25 prednisone 10 mg tablet 10 mg PO DIRECTED #15 tabs 05/28/25 tocilizumab 162 mg/0.9 mL 162 mg (0.9 mL) subcut QWEEK #3.6 05/28/25 subcutaneous pen injector (Actemra mL ACTPen) metoprolol succinate 50 mg 75 mg PO BID 30 days #90 tabs 06/09/25 tablet,extended release 24 hr Allergies Allergy/AdvReac Type Severity Reaction Status Date / Time No Known Allergies (No Known Allergy Verified 06/28/25 21:40 Allergies*) Review of Systems Review of Systems: Yes all other systems are reviewed and are negative [facility] Past Medical History Medical History Esophageal abnormality Encounter for monitoring denosumab therapy Osteoarthritis of left shoulder History of cardiac monitoring Diastolic heart failure Rheumatoid arthritis flare Abdominal discomfort Left shoulder pain Right wrist pain Right shoulder pain Obesity (BMI 30-39.9) Preoperative clearance Abnormal chest x-ray Obesity Pneumonitis Breast pain, left Diastolic dysfunction Pre-op chest exam Osteoarthritis of shoulders, bilateral Asthma-COPD overlap syndrome Personal history of nicotine dependence History of CVA (cerebrovascular accident) (~2017) ILD (interstitial lung disease) Post-menopausal Hypoxia Seropositive rheumatoid arthritis Right hemiplegia (~2017) Chronic anticoagulation GERD (gastroesophageal reflux disease) Rheumatoid arthritis Obstructive sleep apnea on CPAP Essential hypertension Paroxysmal atrial fibrillation (~2017) Pure hypercholesterolemia Surgical History Cataract History of appendectomy History of foot surgery History of shoulder surgery Family History Family History Father No problems noted. Mother No problems noted. Brother Stomach cancer Social History Social History Household Members: None Housing: Apartment Are you a primary health care legal assistant to a significant other at home: No Do you presently have visiting nurse or other home services: No Alcohol intake: current Alcohol intake frequency: holidays/special occasions only Alcohol type: wine Patient Tobacco Use Status: Former Tobacco user Tobacco use type: Cigarette Years Smoked: 20 years Smoked in Last 30 Days: No e-Cigarette/Vaping Use: Never Used Second Hand Smoke Exposure: Yes Use of substances other than those prescribed or required for medical reasons: No Advance Directives: No Advance Directives Information Provided: No service: No Current occupational status: retired Cognitive needs: No Hearing needs: Yes Vision needs: No Physical Exam Vital Signs: Vital Signs: Last Vital Signs Temp 98.7 F 06/28/25 21:35 Pulse 66 06/29/25 00:58 Resp 14 06/29/25 00:58 BP 114/69 06/29/25 00:58 Pulse Ox 100 06/29/25 00:58 O2 Del Method Nasal Cannula 06/29/25 00:58 O2 Flow Rate 2 06/29/25 00:58 BMI result Body Mass Index 31.9 CONSTITUTIONAL: The patient appears non-toxic, well nourished and in no acute distress. Vital signs as documented. HEAD: Atraumatic, normocephalic. EYES: EOMs grossly intact, pupils equal, conjunctiva clear, no exudate. ENT: Nares patent, no discharge. Airway patent, no audible stridor, visible mucosa is pink and moist without noted lesions. NECK: Trachea is midline, no obvious masses or gross abnormalities. CHEST: Symmetric movement, normal appearance. LUNGS: LS present and CTAB, no w/r/r. Non-labored work of breathing. CARDIAC: Rapid but otherwise Regular Rhythm, S1/S2 appreciated, no murmurs, rubs or gallops. ABDOMEN: Abdomen soft and non-tender x4 quadrants, no palpable masses or organomegaly. : Deferred. EXTREMITIES: Normal tone, moves all extremities spontaneously without reported pain. No obvious acute injury or deformity noted. NEURO: Alert and oriented x3, CN II-XII appear grossly intact. Cerebellar Functioning grossly intact. No obvious sensory or motor deficits. Speech clear and appropriate. PSYCH: normal affect, appropriate eye contact, fluid speech, with appropriate response to questioning. No reported suicidality or homicidality. SKIN: Warm, dry, color appropriate, normal turgor. No rashes noted. Medications Administered Discontinued Medications Generic Name Dose Route Start Last Admin Trade Name Freq PRN Reason Stop Dose Admin Diltiazem HCl 18 mg 06/28/25 21:49 06/28/25 22:01 Diltiazem Hcl 50 Mg/10 Ml Vial IVPUSH 06/28/25 21:50 18 mg ONCE ONE Administration Sodium Chloride 1,000 mls @ 999 mls/hr 06/28/25 22:00 06/28/25 23:02 Ns IV 06/28/25 23:00 Infused .Q1H1M RIAZ Infusion Medical Decision Making Medical Decision Making MDM Narrative: 10:13 PM 06/28/2025 (Everardo ALVAREZ): The patient is a 70-year-old female presenting to the ED for evaluation of dizziness with associated tachycardia which began at 04:00 while using the bathroom. The patient has a history of atrial fibrillation with a RVR. Upon arrival to the ED patient is noted to be borderline hypotensive and tachycardic in the 140s. The patient is mentating well, but reports persistent dizziness, patient denies associated chest pain, pleurisy, fever/chills, nausea, vomiting, abdominal pain, or other associated somatic complaint. EKG shows SVT with rate of 139, unable to differentiate true SVT versus AFib with RVR, however given patient's history of AFib with RVR we are attempting 0.25 milligrams/kilogram of Cardizem and we will reassess. 10:17 PM 06/28/2025 (Everardo ALVAREZ): Patient has received 0.25 milligrams/kilogram of Cardizem, with marked improvement in heart rate and apparent conversion to sinus rhythm. We will obtain repeat EKG to confirm. We will await laboratory evaluation to rule out causative factor for RVR, we will also obtain serial troponin x2. If patient has no evidence of acute process causing AFib with a RVR, blood pressure improves and maintains, and troponin is negative, a risk benefit discussion will be held with the patient regarding admission versus discharge. 11:49 PM 06/28/2025 (Everardo ALVAREZ): Patient's troponin is elevated at 365.8. Chart review reveals the patient has had elevated troponins on all visits since August of 2024. The patient denies any active chest pain, denies chest pain throughout symptoms today. The patient's troponin today is elevated compared to her visits in April of this year, today's elevation may be related to demand ischemia from tachycardia throughout the day. The patient's troponin will be repeated. 2:20 AM 06/29/2025 (Everardo ALVAREZ): The patient's repeat troponin unfortunately elevated to 432, we will admit for elevated troponin. Patient remains chest pain-free, sinus rhythm, no tachycardia or hypotension. Admission/Observation Consideration of admission/observation: Escalation of care including admission/observation considered Lab Data MDM Lab Attestation statement: I reviewed the patient's lab results. 06/28/25 21:33 06/28/25 23:08 Labs: Lab Results 06/28/25 06/28/25 06/28/25 Range/Units 21:33 23:08 23:49 WBC 7.0 (4.8-10.8) X10*3/uL RBC 4.73 (4.20-5.50) X10*6/uL Hgb 12.5 (12.0-16.0) g/dl Hct 39.0 (37.0-47.0) % MCV 82.5 (80.0-98.0) fL MCH 26.4 L (27.0-33.0) pg MCHC 32.1 (31.0-35.0) g/dl RDW 15.4 (11.0-16.0) % Plt Count 121 L D (160-400) X10*3/uL MPV 12.9 H (9.4-12.3) fL Absolute Nucleated RBC 0.000 (0.0-0.012) X10*3/uL Nucleated RBC % (auto) 0.0 (0.0-0.2) /100WBC PT 13.1 H (10.9-12.4) SEC INR 1.1 (0.9-1.1) Sodium 143 (135-145) mmol/L Potassium 4.0 (3.3-5.1) mmol/L Chloride 114 H (96-108) mmol/L Carbon Dioxide 20 L (22-29) mmol/L Anion Gap 13 (12-20) BUN 19 H (9-16) mg/dL Creatinine 0.93 (0.5-1.4) mg/dL Estim Creat Clear Calc 47.8 Estimated GFR 59 Random Glucose 100 (60-115) mg/dL Calcium 8.4 D (8.4-10.2) mg/dL Magnesium 1.9 (1.6-2.6) mg/dL Total Bilirubin 0.2 (0.0-1.0) mg/dL AST 35 H (5-31) U/L ALT 28 (0-31) U/L Alkaline Phosphatase 56 (39-117) U/L Troponin I High Sens 365.8 H* D (<3.5-17.0) ng/L Total Protein 6.1 L (6.5-8.0) g/dL Albumin 3.6 (3.5-5.0) g/dL Urine Color Yellow Urine Appearance Clear Urine pH 5.5 (5.0-9.0) Ur Specific [place] 1.010 (1.005-1.025) Urine Protein Negative (Neg-Trace) mg/dL Urine Glucose (UA) Negative (Negative) mg/dL Urine Ketones Negative (Negative) mg/dL Urine Blood Negative (Negative) Urine Nitrite Negative (Negative) Ur Leukocyte Esterase Trace H (Negative) Urine RBC 0-2 (0-2) /HPF Urine WBC 0-5 (0-5) /HPF Ur Squamous Epith Cells 3-5 (0-2) /HPF Urine Bacteria Trace (None Seen) Hyaline Casts 0-2 (0-2) /LPF 06/29/25 Range/Units 01:21 WBC (4.8-10.8) X10*3/uL RBC (4.20-5.50) X10*6/uL Hgb (12.0-16.0) g/dl Hct (37.0-47.0) % MCV (80.0-98.0) fL MCH (27.0-33.0) pg MCHC (31.0-35.0) g/dl RDW (11.0-16.0) % Plt Count (160-400) X10*3/uL MPV (9.4-12.3) fL Absolute Nucleated RBC (0.0-0.012) X10*3/uL Nucleated RBC % (auto) (0.0-0.2) /100WBC PT (10.9-12.4) SEC INR (0.9-1.1) Sodium (135-145) mmol/L Potassium (3.3-5.1) mmol/L Chloride (96-108) mmol/L Carbon Dioxide (22-29) mmol/L Anion Gap (12-20) BUN (9-16) mg/dL Creatinine (0.5-1.4) mg/dL Estim Creat Clear Calc Estimated GFR Random Glucose (60-115) mg/dL Calcium (8.4-10.2) mg/dL Magnesium (1.6-2.6) mg/dL Total Bilirubin (0.0-1.0) mg/dL AST (5-31) U/L ALT (0-31) U/L Alkaline Phosphatase (39-117) U/L Troponin I High Sens 432.4 H* (<3.5-17.0) ng/L Total Protein (6.5-8.0) g/dL Albumin (3.5-5.0) g/dL Urine Color Urine Appearance Urine pH (5.0-9.0) Ur Specific [place] (1.005-1.025) Urine Protein (Neg-Trace) mg/dL Urine Glucose (UA) (Negative) mg/dL Urine Ketones (Negative) mg/dL Urine Blood (Negative) Urine Nitrite (Negative) Ur Leukocyte Esterase (Negative) Urine RBC (0-2) /HPF Urine WBC (0-5) /HPF Ur Squamous Epith Cells (0-2) /HPF Urine Bacteria (None Seen) Hyaline Casts (0-2) /LPF Independent Interpretation I performed an independent interpretation of an: EKG (EKG at 2116 shows SVT with a rate of 139, no evidence of acute ischemia, no ST elevation, no ectopy. QTC 453.) Interpretation: Repeat EKG at 22:21 hours shows sinus rhythm with a first-degree AV block, with rate of 64, no evidence of acute ischemia, no ST elevation. There are 2 PACs noted, no other ectopy, QTC 443. Compared to previous SVT has resolved. Discharge Plan Discharge Clinical Impression: Elevated troponin, Atrial fibrillation with rapid ventricular response Patient Disposition: Admitted As Inpatient Print Language: [place]
[2025-06-28 21:46] LABS: INTERNATIONAL NORM RATIO 1.1 (0.9-1.1); Prothrombin Time 13.1 SEC (10.9-12.4)
[2025-06-28 22:06] VITALS: BP 81/55; PULSE 70; RESP 15; O2SAT 94
[2025-06-28 22:36] VITALS: BP 97/58; PULSE 66; RESP 20; O2SAT 95
--- NOTE | 2025-06-28 22:44 | PC.NURSE ---
recollected CMP/troponin per the lab, the values were very out of wack so requested a redraw. pt in RVR at time of draw. provider aware.
[2025-06-28 23:26] LABS: Alanine Aminotransferase 28 U/L (0-31); Albumin Level 3.6 g/dL (3.5-5.0); Alkaline Phosphatase 56 U/L (39-117); Anion Gap 13 (12-20); Aspartate Amino Transferase 35 U/L (5-31); Blood Urea Nitrogen 19 mg/dL (9-16); Calcium 8.4 mg/dL (8.4-10.2); Carbon Dioxide 20 mmol/L (22-29); Chloride 114 mmol/L (96-108); Creatinine Clr Calc Pharmacy 47.8; Estimated Glomerular Filt Rate 59; Magnesium 1.9 mg/dL (1.6-2.6); Potassium 4.0 mmol/L (3.3-5.1); Sodium 143 mmol/L (135-145); Total Protein 6.1 g/dL (6.5-8.0)
--- NOTE | 2025-06-28 23:34 | PC.NURSE ---
Spoke with provider regarding patient plan of care, patient dropped to 87% while sleeping, put patient on 2L of oxygen due to LOW. Patient has a history and was resting during oxygen desat. Plan of care is awaiting plan of care.
[2025-06-28 23:38] LABS: Troponin-I High Sensitivity 365.8 ng/L (<3.5-17.0)
--- NOTE | 2025-06-28 23:53 | PC.NURSE ---
pt ambulated to the bathroom with walker. assist back into bed. HR remains below 70. VSS.
[2025-06-29] VITALS (9 sets, daily range): BP systolic 99–148; BP diastolic 58–97; PULSE 58–83; RESP 13–18; TEMP 36.6–37.3; O2SAT 97–100
[2025-06-29] LABS: Appearance Urine Clear; Glucose Urine UA Negative (Negative); PH 5.5 (5.0-9.0); Specific Gravity - Urine 1.010 (1.005-1.025); UMIC TRIGGER UACC YES
[2025-06-29 01:55] LABS: Troponin-I High Sensitivity 432.4 ng/L (<3.5-17.0)
--- NOTE | 2025-06-29 01:59 | PC.NURSE ---
20g IV x2, RAC and R forearm
--- NOTE | 2025-06-29 02:49 | PM.IMHP ---
History of Present Illness Date of Service: 06/29/25 Attending physician on admission: Tila Cao Chief Complaint: Dizziness Leeanne Gordillo is a 70 years old woman with a past medical history significant for paroxysmal atrial flutter status post ablation, essential hypertension, HFpEF, COPD on home O2 and LOW on CPAP was brought to the emergency department via EMS due to dizziness upon standing up. She denied associated chest pain, shortness on breath, headache, fever, chills, abdominal pain, nausea, vomiting or diarrhea. She denied alcohol abuse, tobacco smoking or illicit drug use. In the ED, she was found to have tachycardia, supraventricular tachycardia and hypotension of 81/55. Last blood pressure is 116/61. She is on 2 L/min supplemental oxygen via nasal cannula which is her baseline. Blood workup showed no leukocytosis. Hemoglobin is 12.5 and platelets 121. There are no significant electrolyte imbalances. CO2 is 20, anion gap 13 BUN 19 and creatinine 0.93. Her troponin is elevated at 365.8 then 472.4. Urinalysis is unremarkable. Initial EKGs is consistent with SVT. Most recent ECG showed sinus rhythm with 1st AV block and premature atrial complexes. ED tx: Diltiazem 18 mg IV, NS 1 L bolus IV Review of Systems Review of Systems: All 12 systems were reviewed and normal except as noted in HPI. [facility] Medical History Esophageal abnormality Encounter for monitoring denosumab therapy Osteoarthritis of left shoulder History of cardiac monitoring Diastolic heart failure Rheumatoid arthritis flare Abdominal discomfort Left shoulder pain Right wrist pain Right shoulder pain Obesity (BMI 30-39.9) Preoperative clearance Abnormal chest x-ray Obesity Pneumonitis Breast pain, left Diastolic dysfunction Pre-op chest exam Osteoarthritis of shoulders, bilateral Asthma-COPD overlap syndrome Personal history of nicotine dependence History of CVA (cerebrovascular accident) (~2017) ILD (interstitial lung disease) Post-menopausal Hypoxia Seropositive rheumatoid arthritis Right hemiplegia (~2017) Chronic anticoagulation GERD (gastroesophageal reflux disease) Rheumatoid arthritis Obstructive sleep apnea on CPAP Essential hypertension Paroxysmal atrial fibrillation (~2017) Pure hypercholesterolemia Family History Father No problems noted. Mother No problems noted. Brother Stomach cancer Surgical History Cataract History of appendectomy History of foot surgery History of shoulder surgery Social History Household Members: None Housing: Apartment Are you a primary career technical counselor to a significant other at home: No Do you presently have visiting nurse or other home services: No Alcohol intake: current Alcohol intake frequency: holidays/special occasions only Alcohol type: wine Patient Tobacco Use Status: Former Tobacco user Tobacco use type: Cigarette Years Smoked: 20 years Smoked in Last 30 Days: No e-Cigarette/Vaping Use: Never Used Second Hand Smoke Exposure: Yes Use of substances other than those prescribed or required for medical reasons: No Advance Directives: No Advance Directives Information Provided: No service: No Current occupational status: retired Cognitive needs: No Hearing needs: Yes Vision needs: No Meds Allergies Allergy/AdvReac Type Severity Reaction Status Date / Time No Known Allergies (No Known Allergy Verified 06/28/25 21:40 Allergies*) Active Medications: Current Medications Acetaminophen (Acetaminophen 325 Mg Tablet) 975 mg PO Q6H PRN PRN Reason: Pain, Mild 1-3,fever,headache Calcium Carbonate (Calcium Carbonate 750 Mg Tab.Chew) 750 mg PO Q4H PRN PRN Reason: Heartburn Magnesium Hydroxide (Milk Of Magnesia 30 Ml Oral.Susp) 30 ml PO DAILY PRN PRN Reason: Constipation Melatonin (Melatonin 3 Mg Tablet) 6 mg PO BEDTIME PRN PRN Reason: Insomnia Sodium Chloride (0.9 % Sodium Chloride Flush 3 Ml Syringe) 3 ml IVFLUSH [facility] Medications ?Medication ?Instructions ?Recorded ?Confirmed ?Last Taken ?Type nebulizers 08/05/24 05/28/25 Unknown History gabapentin 600 mg tablet 600 mg PO BID Pain 05/07/25 06/24/25 05/07/25 History pantoprazole 40 mg tablet,delayed 40 mg PO DAILY@0630 05/07/25 06/24/25 05/07/25 History release rivaroxaban 20 mg tablet (Xarelto) 20 mg PO DAILY@1700 05/07/25 06/24/25 06/23/25 History dofetilide 500 mcg capsule 500 mcg PO Q12H 06/24/25 06/24/25 Unknown History losartan 100 mg tablet 100 mg PO DAILY 06/24/25 06/24/25 Unknown History Physical Exam Vital Signs and Narrative: Vital Signs: Last Vital Signs Temp 98.7 F 06/28/25 21:35 Pulse 66 06/29/25 00:58 Resp 14 06/29/25 00:58 BP 114/69 06/29/25 00:58 Pulse Ox 100 06/29/25 00:58 O2 Del Method Nasal Cannula 06/29/25 00:58 O2 Flow Rate 2 06/29/25 00:58 BMI result Body Mass Index 31.9 Constitutional - Awake and Alert, No apparent distress. Nasal cannula in place. HEENT - PER, EOMI Cardiovascular - S1S2, RRR, No edema Lungs - Normal lung expansion, Normal respiratory effort, No respiratory distress, CTA bilaterally Abdomen - NT / ND; +BS; No rebound or guarding Extremities - no calf tenderness bilaterally, no swelling Musculoskeletal - Normal inspection, normal ROM Skin - Warm/Dry Neurological - Alert & oriented x3. Moving all extremities spontaneously. Psychological - Appropriate affect Results Labs 06/28/25 21:33 06/28/25 23:08 Labs: Laboratory Results - last 24 hr 06/28/25 06/28/25 06/28/25 21:33 23:08 23:49 MCV 82.5 MCH 26.4 L MCHC 32.1 RDW 15.4 Plt Count 121 L D MPV 12.9 H Absolute Nucleated RBC 0.000 Nucleated RBC % (auto) 0.0 PT 13.1 H INR 1.1 Anion Gap 13 Estim Creat Clear Calc 47.8 Estimated GFR 59 Random Glucose 100 Calcium 8.4 D Magnesium 1.9 Total Bilirubin 0.2 AST 35 H ALT 28 Alkaline Phosphatase 56 Total Protein 6.1 L Albumin 3.6 Urine Color Yellow Urine Appearance Clear Urine pH 5.5 Ur Specific [place] 1.010 Urine Protein Negative Urine Glucose (UA) Negative Urine Ketones Negative Urine Blood Negative Urine Nitrite Negative Ur Leukocyte Esterase Trace H Urine RBC 0-2 Urine WBC 0-5 Ur Squamous Epith Cells 3-5 Urine Bacteria Trace Hyaline Casts 0-2 Assessment and Plan (1) Supraventricular tachycardia: Status: Acute (2) Elevated troponin: Status: Acute Plan Leeanne Gordillo is a 70 y/o woman presents with: Supraventricular tachycardia likely atrial fib with rapid ventricular response, now NSR. Hx of ablation. s/p cardizem IV. Telemetry. Continue dofetilide, metoprolol and Eliquis. Elevated troponin, seems to be chronically elevated. Likely secondary to above. Patient denied chest pain or shortness on breath. Recheck troponin. Cardiology consult. HFpEF. No acute symptoms. Essential hypertension. Continue metoprolol, losartan and spironolactone GERD. Continue PPI. Hyperlipidemia. Continue statin. COPD/interstitial lung disease. On home oxygen. Not in acute exacerbation. Continue home inhalers. Rheumatoid arthritis. Continue leflunomide. Obstructive sleep apnea. Nocturnal CPAP. History of CVA with residual right hemiparesis. No acute symptoms. Continue statin. med rec pending Code status: Full DVT prophylaxis: Xarelto Patient will need hospitalization for at least 2 midnights for elevated troponin after event of rapid atrial flutter/SVT management, she will need continuous cardiac monitoring and advised to evaluation by subspecialty. Quality Stroke Does the patient have a stroke diagnosis?: No VTE Prior VTE?: No VTE Risk Level:: Medical - moderate - high VTE Device Contraindication: Treatment Not Indicated VTE Drug Contraindication: N/A - Med Ordered
--- NOTE | 2025-06-29 05:09 | PC.NURSE ---
Medication unable to be given for 4:15, as medication is not avaiable. Wrote to nursing inspection and testing supervisor to see if medication could be brought down to the ED.
[2025-06-29 05:17] LABS: MANUAL DIFF FLAG NO
[2025-06-29 05:19] LABS: Hematocrit 38.7 % (37.0-47.0); Hemoglobin 12.0 g/dl (12.0-16.0); Imm Gran Abs Auto 0.01 X10*3/uL (0.00-0.03); Imm Gran Pct Auto 0.2 % (0.0-0.4); Lymphocytes Absolute Auto 2.2 X10*3/uL (1.2-4.9); Mean Corpuscular HGB Conc 31.0 g/dl (31.0-35.0); Mean Corpuscular Hemoglobin 26.4 pg (27.0-33.0); Mean Corpuscular Volume 85.1 fL (80.0-98.0); NRBC Abs Auto 0.000 X10*3/uL (0.0-0.012); NRBC Pct Auto 0.0 /100WBC (0.0-0.2); Platelet Count 114 X10*3/uL (160-400); Red Blood Count 4.55 X10*6/uL (4.20-5.50); White Blood Count 6.1 X10*3/uL (4.8-10.8)
[2025-06-29 05:32] LABS: Anion Gap 13 (12-20); Blood Urea Nitrogen 16 mg/dL (9-16); Calcium 8.6 mg/dL (8.4-10.2); Carbon Dioxide 20 mmol/L (22-29); Chloride 115 mmol/L (96-108); Creatinine Clr Calc Pharmacy 68.3; Estimated Glomerular Filt Rate > 60; Potassium 4.0 mmol/L (3.3-5.1); Sodium 144 mmol/L (135-145)
--- NOTE | 2025-06-29 05:52 | PC.NURSE ---
Ambulated with patient to bathroom, patient independently ambulated with a steady gait. Use restroom independently, and was brought back to stretcher, given call light and reconnect to monitor.
--- NOTE | 2025-06-29 07:00 | CA_ITS ---
Transthoracic Echocardiogram Amended Patient (Last, First, Middle): Leeanne Lozada, Gender: Female Date of : 1955 Age: 70 Procedure Date: 06/29/2025 Procedure Type: Transthoracic Echocardiogram Location: ER Height: 149.86 cm Weight: 71.22 kg BSA: 1.66 m2 Heart Rate: 57 bpm BP: 115 / 60 mmHg Hydro Station Supervisor: SB Referring MD: Tila Cao MD Inserting Press Operator: Noah Montoya MD Symptoms: SVT, elevated troponin Study Quality: Adequate ECG Rhythm: Bradycardia Conclusions: - 1. Hyperdynamic LV ejection fraction of greater than 70% with pseudonormal filling pattern 2. Severely dilated left atrium 3. Calcified aortic and mitral valve with mild calcific mitral stenosis suspected 4. Normal RV systolic pressure 5. No gross pericardial effusion Findings Left Ventricle Normal left ventricular cavity size. There is normal left ventricular wall thickness. The left ventricular systolic function is hyperdynamic. The visually estimated ejection fraction is >70%. Spectral Doppler is indicative of a pseudonormal filling pattern. There is severe septal asymmetric hypertrophy. Right Ventricle Normal right ventricular cavity size and systolic function. Atria The left atrium is severely dilated. There is no evidence of interatrial shunt. The right atrium is normal in size. Aortic Valve Normal aortic valve structure and function. There is moderate calcification of the aortic valve. There is no aortic valve stenosis. There is no aortic valve regurgitation. Mitral Valve There is mild anterior and severe posterior mitral leaflet thickening. There is severe mitral annular calcification. There is no mitral valve regurgitation. There is mild mitral valve stenosis. Pulmonic Valve The pulmonic valve was not well visualized. Tricuspid Valve Likely normal tricuspid valve structure and function. There is trace tricuspid valve regurgitation. The right ventricular systolic pressure is normal. The right ventricular systolic pressure is 26 mmHg. Normal right atrial pressure. There is no evidence of pulmonary hypertension. Great Vessels All visible segments of the aorta are normal in size. The pulmonary artery was not well visualized. There is no dilatation of the ascending aorta measuring 2.90 cm. Small plaque is seen in the sino tubular ridge. Venous The inferior vena cava is normal in size and collapses greater than 50% with inspiration. Pericardium/Pleural There is no evidence of pericardial effusion. Prior Study Comparison No significant change compared to prior study dated: 05/07/2025. Measurements 2D Linear Measurements IVSd: 1.17 0.6-0.9/0.6-1.0 cm LVIDd: 4.23 3.9-5.3/4.2-5.9 cm LVIDd Index: 2.55 2.4-3.2/2.2-3.1 cm/m2 LVIDs: 2.99 2.0-3.6 cm LVPWd: 0.85 0.7-1.1 cm LA Diam: 4.50 2.7-3.8/3.0-4.0 cm LAIDs Index: 2.71 1.5-2.3 cm/m2 LV Mass: 174.70 67-162/88-224 g LV Mass Index: 105.24 43-95/49-115 g/m2 LVOT Diam: 2.20 3.0+(-)1.3 cm 2D Volumes LA Vol: 60.80 2D Systolic Function EF 4C: 75.30 >55% EF 2C: 73.40 >55% EF BiP: 74.90 >55% Mitral Valve MV VTI: 0.40 MV Pk Latrell: 1.32 MV Mn Latrell: 0.78 MV Pk Grad: 7.00 MV Mn Grad: 3.00 MV Pk E: 1.24 MV PK A: 0.91 MV Decel Time: 391.00 E/A: 1.40 E'Lateral: 3.49 E'Medial: 3.09 E/E' Med: 40.10 E/E' Lat: 35.50 PHT: 114.00 MVA PHT: 1.93 MVA Continuity: 2.48 Decel [place]: 3.17 Aortic Valve AoV Pk Latrell: 1.23 AoV Mn Latrell: 0.92 AoV VTI: 0.32 AoV Pk Grad: 6.00 Aov Mn Grad: 4.00 RICHARD Cont.VTI: 3.12 LVOT LVOT Pk Latrell: 1.08 LVOT Mn Latrell: 0.80 LVOT VTI: 0.26 LVOT Pk Grad: 5.00 LVOT Mn Grad: 3.00 LVOT Diam: 2.20 LVOT Area: 3.80 Diastolic Function MV Pk E: 1.24 MV Pk A: 0.91 E/A: 1.40 E'Medial: 3.09 E/E' Med: 40.10 E' Laterial: 3.49 E/E' Lat: 35.50 Right Ventricle TAPSE (mm): 16.50 TVS' Latrell: 8.66 Tricuspid Valve TR Pk Latrell: 2.38 TR Pk Grad: 23.00 RA Press: 3.00 RVSP: 26.00 Great Vessels Aorta Sinus of Valsalva: 2.70 2.0-3.5 cm Ao Asc: 2.90 2.1-3.4 cm Pulmonary Valve PV Pk Latrell: 0.83 Peak PV Grad: 3.00 Updated in Other Vendor System with Status of Final Noah Montoya MD electronically signed on 06/29/2025 2:15:30 PM with status of Final
--- NOTE | 2025-06-29 09:15 | PM.CNCAR ---
History of Present Illness History of Present Illness Date of Service: 06/29/25 Requesting physician: Brandi Knox Consult reason: other (Atrial flutter, chest pain) Chief complaint: Supraventricular tachycardia Narrative: I was consulted to see Leeanne in cardiology consultation today for recurrent tachyarrhythmias with symptoms. Patient 70 year female well known to wait prior history of highly symptomatic atrial flutter with heart failure syndrome status post ablation in August last year. She was supposed to be on Tikosyn therapy but somehow this was discontinued. I could not find any obvious recommendations in the chart as to why the Tikosyn was stopped. Patient has had multiple episodes of tachyarrhythmias associated with chest pressure. Last seen in her office in April at which time her metoprolol was increased to try to prevent her from having tachyarrhythmias. History was obtained with help of special education curriculum specialist. She came to the hospital because she woke up this morning at 04:00 with symptoms of chest pressure and rapid heart rate. Then she tried to get out of bed and she felt dizzy. She then decided to come to the emergency room. In the emergency room shows noted to have rapid heart rate with narrow complex tachycardia reported as SVT although it appears to be atypical atrial flutter. Patient was then given rate control medication subsequently converted to sinus rhythm. Currently feeling well with no chest pressure or palpitations or lightheadedness. Blood pressure remains elevated. Troponins elevated in the 304 100 range. She is currently on full oral anticoagulation with Xarelto which she has been taking religiously. Echocardiogram shows normal LV ejection fraction with severe left atrial enlargement with both mitral and aortic valve calcification without significant valvular abnormalities by Doppler. Review of Systems Constitutional: Constitutional: Reports no additional constitutional complaints Eyes: Eyes: Reports no additional eye complaints Cardiovascular: Cardiovascular: Reports chest pain at rest, Reports lightheadedness, Reports palpitations, Denies dyspnea, Reports dyspnea on exertion, Denies orthopnea and Denies paroxysmal nocturnal dyspnea Respiratory: Respiratory: Denies cough, Denies dyspnea, Reports dyspnea on exertion and Denies wheezing Gastrointestinal: Gastrointestinal: Reports no additional gastrointestinal complaints Genitourinary: Genitourinary: Reports no additional female genitourinary complaints Musculoskeletal: Musculoskeletal: Reports no additional musculoskeletal complaints Integumentary/Breasts: Skin/Breast: Reports system reviewed and no additional complaints, except as docu Neurologic: Reports system reviewed and no additional complaints, except as documented Psychiatric: Psychiatric: Reports no additional psychiatric complaints Endocrine: Endocrine: Reports no additional endocrine complaints and Reports palpitations Allergic/Immunologic: Allergic/Immunologic: Denies wheezing PMFSH Past Medical History Medical History Esophageal abnormality Encounter for monitoring denosumab therapy Osteoarthritis of left shoulder History of cardiac monitoring Diastolic heart failure Rheumatoid arthritis flare Abdominal discomfort Left shoulder pain Right wrist pain Right shoulder pain Obesity (BMI 30-39.9) Preoperative clearance Abnormal chest x-ray Obesity Pneumonitis Breast pain, left Diastolic dysfunction Pre-op chest exam Osteoarthritis of shoulders, bilateral Asthma-COPD overlap syndrome Personal history of nicotine dependence History of CVA (cerebrovascular accident) (~2016) ILD (interstitial lung disease) Post-menopausal Hypoxia Seropositive rheumatoid arthritis Right hemiplegia (~2016) Chronic anticoagulation GERD (gastroesophageal reflux disease) Rheumatoid arthritis Obstructive sleep apnea on CPAP Essential hypertension Paroxysmal atrial fibrillation (~2016) Pure hypercholesterolemia Family History Family History Father No problems noted. Mother No problems noted. Brother Stomach cancer Surgical History Surgical History Cataract History of appendectomy History of foot surgery History of shoulder surgery Social History Social History Household Members: None Housing: Apartment Are you a primary animal care specialist to a significant other at home: No Do you presently have visiting nurse or other home services: No Alcohol intake: current Alcohol intake frequency: holidays/special occasions only Alcohol type: wine Patient Tobacco Use Status: Former Tobacco user Tobacco use type: Cigarette Years Smoked: 20 years Smoked in Last 30 Days: No e-Cigarette/Vaping Use: Never Used Second Hand Smoke Exposure: Yes Use of substances other than those prescribed or required for medical reasons: No Advance Directives: No Advance Directives Information Provided: No Nutrition Risks: No Nutritional Risk service: No Current occupational status: retired Cognitive needs: No Hearing needs: Yes Vision needs: No Meds Allergies Allergy/AdvReac Type Severity Reaction Status Date / Time No Known Allergies (No Known Allergy Verified 06/28/25 21:40 Allergies*) Active Medications: Current Medications Acetaminophen (Acetaminophen 325 Mg Tablet) 975 mg PO Q6H PRN PRN Reason: Pain, Mild 1-3,fever,headache Calcium Carbonate (Calcium Carbonate 750 Mg Tab.Chew) 750 mg PO Q4H PRN PRN Reason: Heartburn Magnesium Hydroxide (Milk Of Magnesia 30 Ml Oral.Susp) 30 ml PO DAILY PRN PRN Reason: Constipation Melatonin (Melatonin 3 Mg Tablet) 6 mg PO BEDTIME PRN PRN Reason: Insomnia Sodium Chloride (0.9 % Sodium Chloride Flush 3 Ml Syringe) 3 ml IVFLUSH QSHIFranciscan Children's Medications ?Medication ?Instructions ?Recorded ?Confirmed ?Last Taken ?Type nebulizers 08/05/24 05/28/25 Unknown History gabapentin 600 mg tablet 600 mg PO BID Pain 05/07/25 06/24/25 05/07/25 History pantoprazole 40 mg tablet,delayed 40 mg PO DAILY@0630 05/07/25 06/24/25 05/07/25 History release rivaroxaban 20 mg tablet (Xarelto) 20 mg PO DAILY@1700 05/07/25 06/24/25 06/23/25 History dofetilide 500 mcg capsule 500 mcg PO Q12H 06/24/25 06/24/25 Unknown History losartan 100 mg tablet 100 mg PO DAILY 06/24/25 06/24/25 Unknown History ipratropium bromide 17 2 puff inhalation Q8H 06/29/25 Unknown History mcg/actuation HFA aerosol inhaler (Atrovent HFA) ketorolac 0.5 % eye drops 1 drp ophthalmic-Right TID 06/29/25 Unknown History leflunomide 10 mg tablet 10 mg PO DAILY 06/29/25 Unknown History metoprolol succinate 50 mg 50 mg PO BID 06/29/25 06/29/25 Unknown History tablet,extended release 24 hr tocilizumab 162 mg/0.9 mL 162 mg subcut QWEEK 06/29/25 Unknown History subcutaneous pen injector (Actemra ACTPen) Physical Exam Vital Signs: Vital Signs: Last Vital Signs Temp 98.0 F 06/29/25 05:57 Pulse 68 06/29/25 05:57 Resp 13 06/29/25 05:57 BP 148/97 H 06/29/25 05:57 Pulse Ox 100 06/29/25 05:57 O2 Del Method Nasal Cannula 06/29/25 05:57 O2 Flow Rate 2 08/18/25 05:57 BMI result Body Mass Index 31.9 Const: General: cooperative, comfortable, no acute distress, alert and awake Nutritional Appearance: overweight Orientation/consciousness: patient oriented x3 Limitations: no limitations HEENT: Head: Yes normocephalic and Yes atraumatic Neck: Neck: Yes trachea midline, Yes supple and Yes no JVD Resp: Effort & Inspection: normal respiratory effort Auscultation: clear to auscultation bilaterally Cardio: Jugular venous distension: no JVD Palpation: normal PMI Rate: regular rate Rhythm: regular rhythm Heart sounds: S1 normal heart sound present, S2 normal heart sound present, no click, no gallops and Murmur heart sound present systolic early GI: Auscultation: normal bowel sounds Skin: General skin exam: no rashes or lesions noted Neuro: General: patient oriented x3 and no focal motor deficits Extrem: General: Yes no clubbing, cyanosis or edema Objective Labs and Meds 06/29/25 05:12 06/29/25 05:12 Lab results: Laboratory Results - last 24 hr 06/28/25 06/28/25 06/28/25 21:33 23:08 23:49 WBC 7.0 RBC 4.73 Hgb 12.5 Hct 39.0 MCV 82.5 MCH 26.4 L MCHC 32.1 RDW 15.4 Plt Count 121 L D MPV 12.9 H Immature Gran % (Auto) Neut % (Auto) Lymph % (Auto) [place] % (Auto) Eos % (Auto) Baso % (Auto) Lymph # (Auto) [place] # (Auto) Eos # (Auto) Baso # (Auto) Abs Immat Gran (auto) Absolute Neuts (auto) Absolute Nucleated RBC 0.000 Nucleated RBC % (auto) 0.0 PT 13.1 H INR 1.1 Sodium 143 Potassium 4.0 Chloride 114 H Carbon Dioxide 20 L Anion Gap 13 BUN 19 H Creatinine 0.93 Estim Creat Clear Calc 47.8 Estimated GFR 59 Random Glucose 100 Calcium 8.4 D Magnesium 1.9 Total Bilirubin 0.2 AST 35 H ALT 28 Alkaline Phosphatase 56 Troponin I High Sens 365.8 H* D Total Protein 6.1 L Albumin 3.6 Urine Color Yellow Urine Appearance Clear Urine pH 5.5 Ur Specific [place] 1.010 Urine Protein Negative Urine Glucose (UA) Negative Urine Ketones Negative Urine Blood Negative Urine Nitrite Negative Ur Leukocyte Esterase Trace H Urine RBC 0-2 Urine WBC 0-5 Ur Squamous Epith Cells 3-5 Urine Bacteria Trace Hyaline Casts 0-2 06/29/25 06/29/25 01:21 05:12 WBC 6.1 RBC 4.55 Hgb 12.0 Hct 38.7 MCV 85.1 MCH 26.4 L MCHC 31.0 RDW 15.3 Plt Count 114 L MPV 12.6 H Immature Gran % (Auto) 0.2 Neut % (Auto) 42.2 L Lymph % (Auto) 36.1 [place] % (Auto) 11.6 H Eos % (Auto) 9.1 H Baso % (Auto) 0.8 Lymph # (Auto) 2.2 [place] # (Auto) 0.7 Eos # (Auto) 0.6 H Baso # (Auto) 0.1 Abs Immat Gran (auto) 0.01 Absolute Neuts (auto) 2.6 Absolute Nucleated RBC 0.000 Nucleated RBC % (auto) 0.0 PT INR Sodium 144 Potassium 4.0 Chloride 115 H Carbon Dioxide 20 L Anion Gap 13 BUN 16 Creatinine 0.65 Estim Creat Clear Calc 68.3 Estimated GFR > 60 Random Glucose 85 Calcium 8.6 Magnesium Total Bilirubin AST ALT Alkaline Phosphatase Troponin I High Sens 432.4 H* Total Protein Albumin Urine Color Urine Appearance Urine pH Ur Specific [place] Urine Protein Urine Glucose (UA) Urine Ketones Urine Blood Urine Nitrite Ur Leukocyte Esterase Urine RBC Urine WBC Ur Squamous Epith Cells Urine Bacteria Hyaline Casts Assessment and Plan (1) Paroxysmal atrial flutter: Status: Acute Paroxysmal atrial flutter recurrent in this elderly woman which is highly symptomatic causing chest pressure and troponin leak. Most likely from tachyarrhythmias although myocardial ischemia needs to be ruled out. As per the last office note she was supposed to have a myocardial perfusion imaging but this is not performed. Will switch her to a coronary CTA as an outpatient. At this point time continue with rhythm control approach as this has led to multiple hospitalization as well as causing intermittent symptoms. She has had ablation last August but persists with recurrent arrhythmias most likely due to significant left atrial enlargement. She will require antiarrhythmic drug support. At this point time given her normal QT interval and normal renal function will restart her on Tikosyn at 250 mcg b.i.d.. She will need inpatient hospitalization for 72 hours for monitoring for QT interval as well as pro arrhythmias. Continue metoprolol therapy. She requires better blood pressure control and add amlodipine 2.5 mg to her regimen. Clinically appears to be euvolemic and well compensated. No additional diuretics are needed at this point time. Management was discussed with her with the help of special education curriculum specialist. She understands. If her QT interval remains stable will gradually uptitrate Tikosyn therapy to maximally tolerated. Continue full disclosure cardiac telemetry. Will follow up with you. Procedures Date of Service Date of Service: 06/29/25
[2025-06-29] MEDS: 0.9 % Sodium Chloride Flush 3 ML SYRINGE IVFLUSH ×2 (10:01→18:00)
--- NOTE | 2025-06-29 10:30 | PHA.MEDREC ---
Addendum entered by Primo Ramsey RPh 06/29/25 11:13: Reviewed by [facility]. Pt states she is no longer on Orencia. Original Note: Pharmacy Consult ? Medication Reconciliation Pharmacy has completed the medication reconciliation. Spoke to patient through administrative support associate service to confirm med list. Patient states she is no longer taking Dofetilide 500 mg, Atrovent HFA, Losartan 100 mg and Prednisone 10 mg taper. Patient confirmed Actemra ACTPen 162 mg every Sunday, last dose 06/24/25. Parent last had her medication 06/27/25.
[2025-06-29 10:36] LABS: Troponin-I High Sensitivity 297.4 ng/L (<3.5-17.0)
--- NOTE | 2025-06-29 13:34 | PM.EVENT ---
Event Note Date of Service: 06/29/25 Event Note: Leeanne Gordillo is a 70 y/o woman presents with Supraventricular tachycardia likely atrial fib with rapid ventricular response now NSR. Hx of ablation. s/p cardizem IV. Telemetry. Continue dofetilide, metoprolol and Eliquis. Tikosyn restarted at 250mg BID Elevated troponin, seems to be chronically elevated. Likely secondary to above. Patient denied chest pain or shortness on breath. Recheck troponin. Cardiology consult. HFpEF. No acute symptoms. Essential hypertension. Continue metoprolol, losartan and spironolactone GERD. Continue PPI. Hyperlipidemia. Continue statin. COPD/interstitial lung disease. On home oxygen. Not in acute exacerbation. Continue home inhalers. Rheumatoid arthritis. Continue leflunomide. Obstructive sleep apnea. Nocturnal CPAP. History of CVA with residual right hemiparesis. No acute symptoms. Continue statin. Code status: Full DVT prophylaxis: Lynneto Time Spent With Patient Time: Total time managing care of this patient today ____ minutes.
[2025-06-30] VITALS (10 sets, daily range): BP systolic 122–153; BP diastolic 58–76; PULSE 57–90; RESP 12–21; TEMP 36.1–36.8; O2SAT 92–100; BMI 30.8
--- NOTE | 2025-06-30 | ECG_ITS ---
Test Reason : CP Blood Pressure : */* mmHG Vent. Rate : 57 BPM Atrial Rate : 57 BPM P-R Int : 164 ms QRS Dur : 62 ms QT Int : 448 ms P-R-T Axes : -5 0 81 degrees QTcB Int : 436 ms Sinus bradycardia Otherwise normal ECG When compared with ECG of 30-Jun-2025 09:18, No significant change was found Referred By: Brandi Knox Electronically Signed By: PARIS RAIN MD
[2025-06-30] MEDS: Metoprolol Succinate ER 50 MG TAB.ER.24H PO (08:06)
[2025-06-30] MEDS: 0.9 % Sodium Chloride Flush 3 ML SYRINGE IVFLUSH ×2 (08:07→16:56)
--- NOTE | 2025-06-30 08:47 | MHC.CM.PN ---
CM met with Patient at bedside with the assist of a [facility] Health Service Worker. IMM was addressed with Patient; original was given to Patient and a copy has been placed on the chart. Patient lives in an apartment with her 14 year old Granddaughter and she uses a cane & walker to assist with mobility. Patient has a [employer]ER 22 hours/week and CPAP; home/resume said services is the goal and CM has initiated and will follow for dc planning. PCP is Dr. Dafne Pollard and Daughter/HCP/Leeanne will transport to home at time of dc.
--- NOTE | 2025-06-30 09:18 | ECG_ITS ---
Test Reason : CP Blood Pressure : */* mmHG Vent. Rate : 65 BPM Atrial Rate : 65 BPM P-R Int : 168 ms QRS Dur : 64 ms QT Int : 460 ms P-R-T Axes : -4 15 69 degrees QTcB Int : 478 ms Normal sinus rhythm Normal ECG When compared with ECG of 28-Jun-2025 22:21, Premature atrial complexes are no longer Present UT interval has decreased Referred By: Brandi Knox Electronically Signed By: PARIS RAIN MD
--- NOTE | 2025-06-30 09:34 | PM.PNCARD ---
Subjective Subjective Date of Service: 06/30/25 Principal diagnosis: Paroxysmal atrial fibrillation, elevated troponins Interval history: Patient is doing well. Feeling well. No more chest pain. No overnight atrial fibrillation. Heart rate however seems to bump up with ambulation but remaining sinus Review of Systems Constitutional: Reports no additional constitutional complaints Cardiovascular: Denies chest pain at rest, Denies chest pain with activity, Denies palpitations, Denies dyspnea and Reports dyspnea on exertion Respiratory: Reports no additional respiratory complaints, Denies dyspnea and Reports dyspnea on exertion Gastrointestinal: Reports no additional gastrointestinal complaints Reports system reviewed and no additional complaints, except as documented Psychiatric: Reports no additional psychiatric complaints Endocrine: Denies palpitations Physical Exam Vital Signs: Last Vital Signs Temp 96.9 F 06/30/25 07:48 Pulse 76 06/30/25 07:48 Resp 15 06/30/25 07:48 BP 122/69 06/30/25 07:48 Pulse Ox 98 06/30/25 07:48 O2 Del Method Room Air 06/30/25 07:48 O2 Flow Rate 2 06/29/25 05:57 BMI result Body Mass Index 30.8 Const General: cooperative, comfortable, alert and awake Nutritional Appearance: overweight Orientation/consciousness: patient oriented x3 Limitations: no limitations Neck Neck: Yes trachea midline, Yes supple and Yes no JVD Resp Effort & Inspection: normal respiratory effort Auscultation: clear to auscultation bilaterally Cardio Jugular venous distension: no JVD Palpation: normal PMI Rate: regular rate Rhythm: regular rhythm Heart sounds: S1 normal heart sound present, S2 normal heart sound present, no click, no gallops and no murmurs GI Auscultation: normal bowel sounds Skin General skin exam: no rashes or lesions noted Neuro General: patient oriented x3 and no focal motor deficits Extrem General: Yes no clubbing, cyanosis or edema Objective Labs and Meds 06/29/25 05:12 06/29/25 05:12 Lab results: Laboratory Results - last 24 hr 06/29/25 09:57 Troponin I High Sens 297.4 H* Progress Note: A&P Assessment and plan (1) Paroxysmal atrial flutter: Status: Acute Assessment and Plan: Paroxysmal atrial fibrillation doing well with rhythm control approach. Will continue to uptitrate Tikosyn to 375 mcg b.i.d. for QTC today on EKGs less than 500 milliseconds. Continue increase metoprolol to 75 mg b.i.d.. Continue aggressive blood pressure control which today seems to be well optimized. Continue full oral anticoagulation. EKGs should be done as per protocol for Tikosyn (2) Elevated troponin: Status: Acute Assessment and Plan: Elevated troponin setting of atrial fibrillation most likely demand ischemia although underlying coronary artery disease needs to be ruled out. Will suggest as an outpatient to pursue coronary CTA. Continue full oral anticoagulation with Eliquis. Continue with statin therapy. Will follow with you Time Spent With Patient Time: Total time managing care of this patient today ____ minutes. Progress Note: Quality Stroke Does the patient have a stroke diagnosis?: No Procedures Date of Service Date of Service: 06/30/25
--- NOTE | 2025-06-30 10:32 | P.PNIM_ITS ---
Subjective Subjective Date of Service: 06/30/25 Interval History: Follow up SVT started in [facility] protocol Review of Systems Review of Systems: Yes all other systems are reviewed and are negative Physical Exam 2 Exam: Exam: Appearing in no acute distress lung sounds are clear to auscultation heart regular rate rhythm, clear S1, S2 positive bowel sounds, abdomen is soft, nontender neuro patient is alert x3, no focal deficits Vital Signs: Vital Signs: Last Vital Signs Temp 96.9 F 06/30/25 07:48 Pulse 76 06/30/25 07:48 Resp 15 06/30/25 07:48 BP 122/69 06/30/25 07:48 Pulse Ox 98 06/30/25 07:48 O2 Del Method Room Air 06/30/25 07:48 O2 Flow Rate 2 06/29/25 05:57 BMI result Body Mass Index 30.8 Objective Data Active Medications Acetaminophen (Acetaminophen 325 Mg Tablet) 975 mg PO Q6H PRN PRN Reason: Pain, Mild 1-3,fever,headache Amlodipine Besylate (Amlodipine Besylate 2.5 Mg Tablet) 2.5 mg PO DAILY [facility]; Protocol Last Admin: 06/30/25 08:06 Dose: 2.5 mg Documented By: DIEGO Atorvastatin Calcium (Atorvastatin Calcium 40 Mg Tablet) 40 mg PO BEDTIME [facility] Baclofen (Baclofen 10 Mg Tablet) 10 mg PO TID [facility] Last Admin: 06/30/25 08:06 Dose: 10 mg Documented By: DIEGO Calcium Carbonate (Calcium Carbonate 750 Mg Tab.Chew) 750 mg PO Q4H PRN PRN Reason: Heartburn Dofetilide (Dofetilide 125 Mcg Capsule) 250 mcg PO BID [facility] Last Admin: 06/30/25 08:06 Dose: 250 mcg Documented By: DIEGO Gabapentin (Gabapentin 600 Mg Tablet) 600 mg PO BID [facility] Last Admin: 06/30/25 08:06 Dose: 600 mg Documented By: DIEGO Leflunomide (Leflunomide 10 Mg Tablet) 10 mg PO DAILY [facility] Magnesium Hydroxide (Milk Of Magnesia 30 Ml Oral.Susp) 30 ml PO DAILY PRN PRN Reason: Constipation Melatonin (Melatonin 3 Mg Tablet) 6 mg PO BEDTIME PRN PRN Reason: Insomnia Metoprolol Succinate (Metoprolol Succinate Er 50 Mg Tab.Er.24h) 50 mg PO BID [facility]; Protocol Last Admin: 06/30/25 08:06 Dose: 50 mg Documented By: DIEGO Omeprazole (Omeprazole 20 Mg Capsule.) 20 mg PO DAILY@0630 [facility] Rivaroxaban (Rivaroxaban 20 Mg Tablet) 20 mg PO DAILY@1700 [facility] Sertraline HCl (Sertraline Hcl 25 Mg Tablet) 25 mg PO DAILY [facility] Last Admin: 06/30/25 08:06 Dose: 25 mg Documented By: DIEGO Sodium Chloride (0.9 % Sodium Chloride Flush 3 Ml Syringe) 3 ml IVFLUSH QSHIFT [facility] Last Admin: 06/30/25 08:07 Dose: 3 ml Documented By: DIEGO Spironolactone (Spironolactone 25 Mg Tablet) 25 mg PO DAILY [facility]; Protocol Last Admin: 06/30/25 08:06 Dose: 25 mg Documented By: DIEGO Labs 06/29/25 05:12 06/29/25 05:12 Assessment and Plan (1) Paroxysmal A-fib: Status: Acute Plan 70-year-old woman admitted with SVT Supraventricular tachycardia likely atrial fib with rapid ventricular response now NSR. Hx of ablation. s/p cardizem IV. metoprolol increased continue eliquis Seen evaluated by Cardiology, recommended Tikosyn initial dose to 250 mcg b.i.d., increased to 375 mcg b.i.d., increase BB Elevated troponin, seems to be chronically elevated. Likely secondary to above. Patient denied chest pain or shortness on breath. Recheck troponin. HFpEF. No acute symptoms. Essential hypertension. Continue metoprolol, losartan and spironolactone GERD. Continue PPI. Hyperlipidemia. Continue statin. COPD/interstitial lung disease. On home oxygen. Not in acute exacerbation. Continue home inhalers. Rheumatoid arthritis. Continue leflunomide. Obstructive sleep apnea. Nocturnal CPAP. History of CVA with residual right hemiparesis. No acute symptoms. Continue statin. Code status: Full DVT prophylaxis: Xarelto Quality Stroke Does the patient have a stroke diagnosis?: No VTE Prior VTE?: No VTE Risk Level:: Medical - moderate - high VTE Device Contraindication: Treatment Not Indicated VTE Drug Contraindication: N/A - Med Ordered
--- NOTE | 2025-06-30 12:04 | P.CDIM_ITS ---
PROVIDER RESPONSE TEXT: To clarify, the appropriate diagnosis supported by the clinical indicators: Chronic respiratory failure: hypoxic QUERY TEXT: PHYSICIAN'S DOCUMENTATION REQUEST Date of Query: 06/30/2025 10:11 AM EDT Patient Name: Leeanne Lozada Admit Date: 06/29/2025 Dear Brandi Knox NATUROPATH, A review of the medical record indicates additional documentation may be needed. Please review below and update the documentation accordingly. Clinical Indicators: patient is on home oxygen and inhalers PMH: COPD/Interstitial lung disease Please clarify which of the following accurately represents the patient's respiratory status: Chronic respiratory failure Please specify if Hypoxic, Hypercapnic, or Hypoxic and hypercapnic Other (explain) Clinically unable to determine (explain) Thank you, Cristin Issa RN Use of terms such as suspected, likely, concern for, or probable (associated with a specific diagnosis that is being evaluated, monitored, or treated as if it exists) are acceptable and can be coded in the inpatient setting, when documented at the time of discharge. Please use your independent medical judgment in providing your response. THIS QUERY IS PART OF THE PERMANENT MEDICAL RECORD
[2025-06-30] MEDS: Metoprolol Succinate ER 25 MG TAB.ER.24H 75 MG PO (22:09)
[2025-07-01] VITALS (10 sets, daily range): BP systolic 80–157; BP diastolic 40–70; PULSE 49–68; RESP 16–20; TEMP 36.2–36.8; O2SAT 93–98
--- NOTE | 2025-07-01 | ECG_ITS ---
Test Reason : check qt Blood Pressure : */* mmHG Vent. Rate : 49 BPM Atrial Rate : 49 BPM P-R Int : 168 ms QRS Dur : 66 ms QT Int : 528 ms P-R-T Axes : 10 10 74 degrees QTcB Int : 476 ms Sinus bradycardia Low voltage QRS Borderline ECG When compared with ECG of 30-Jun-2025 22:20, No significant change was found Referred By: Brandi Knox Electronically Signed By: PARIS RAIN MD
[2025-07-01] MEDS: 0.9 % Sodium Chloride Flush 3 ML SYRINGE IVFLUSH ×4 (05:51→21:17)
--- NOTE | 2025-07-01 07:46 | P.DS_ITS ---
DS: Providers Provider Date of Service: 07/02/25 <ANTONIO Crockett - Last Filed: 07/02/25 10:50> Date of admission: 06/29/25 02:22 <Brandi Knox NP - Last Filed: 07/01/25 07:52> Date of discharge: 07/02/25 <ANTONIO Crockett - Last Filed: 07/02/25 10:50> Primary care physician: Dafne Pollard MD <Brandi Knox NP - Last Filed: 07/01/25 07:52> Consults: 06/29/25 02:48 Consult to Cardiology Routine Consulting Provider: [facility] Reason for consultation: SVT elevated troponin Has provider been notified: No <Brandi Knox NP - Last Filed: 07/01/25 07:52> Attending physician on discharge: Zack Adamson <ANTONIO Crockett - Last Filed: 07/02/25 10:50> Discharging clinician: Giovana Marie <ANTONIO Crockett - Last Filed: 07/02/25 10:50> DS: Diagnosis Discharge Diagnosis (1) Paroxysmal A-fib: Status: Acute <Brandi Knox NP - Last Filed: 07/01/25 07:52> DS: Summary Hospital Course Hospital Course: History and physical as per admitting provider. Leeanne Gordillo is a 70 years old woman with a past medical history significant for paroxysmal atrial flutter status post ablation, essential hypertension, HFpEF, COPD on home O2 and LOW on CPAP was brought to the emergency department via EMS due to dizziness upon standing up. She denied associated chest pain, shortness on breath, headache, fever, chills, abdominal pain, nausea, vomiting or diarrhea. She denied alcohol abuse, tobacco smoking or illicit drug use. In the ED, she was found to have tachycardia, supraventricular tachycardia and hypotension of 81/55. Last blood pressure is 116/61. She is on 2 L/min supplemental oxygen via nasal cannula which is her baseline. Blood workup showed no leukocytosis. Hemoglobin is 12.5 and platelets 121. There are no significant electrolyte imbalances. CO2 is 20, anion gap 13 BUN 19 and creatinine 0.93. Her troponin is elevated at 365.8 then 472.4. Urinalysis is unremarkable. Initial EKGs is consistent with SVT. Most recent ECG showed sinus rhythm with 1st AV block and premature atrial complexes. ED tx: Diltiazem 18 mg IV, NS 1 L bolus IV 70-year-old patient treated for supraventricular tachycardia, atrial fibrillation with rapid ventricular response. Patient initiated on Tikosyn protocol at 375 mcg b.i.d., metoprolol was also increased for better blood pressure control and amlodipine was added as well. Blood pressure was low and therefore amlodipine was discontinued and dose of metoprolol was reduced. QTC has been stable during hospitalization. She will be discharged home with Toprol-XL 25 mg daily and Tikosyn 250 mcg b.i.d. Elevated troponin. No chest pain or ischemic changes noted on EKG. Likely secondary due to demand in the setting of rapid atrial flutter. Recommend outpatient coronary [place] in the future [place] [facility] Continue full anticoagulation. Hypertension. Unclear medication compliance at baseline. BP meds were titrated up due to uncontrolled hypertension but then blood pressure was low therefore new meds were discontinued. Blood pressure stable on Toprol-XL 25 mg daily. Will have VNA services for close blood pressure monitoring. Outpatient follow-up with Cardiology. No changes made to other baseline medications <Brandi Knox NP - Last Filed: 07/01/25 07:52> Time Attestation Discharge Coordination Time (in mins): 32 <ANTONIO Crockett - Last Filed: 07/02/25 10:50> Quality: Safe Use of Opioids Does Pt have an Active Cancer Diagnosis on the Problem List?: No <ANTONIO Crockett - Last Filed: 07/02/25 10:50> Quality: Stroke Does the patient have a stroke diagnosis?: No <ANTONIO Crockett - Last Filed: 07/02/25 10:50> Physical Exam Vital Signs: Vital Signs: Last Vital Signs Temp 98 F 07/01/25 04:00 Pulse 58 07/01/25 04:00 Resp 16 07/01/25 04:27 BP 157/67 H 07/01/25 04:00 Pulse Ox 93 07/01/25 04:00 O2 Del Method Room Air 07/01/25 04:00 O2 Flow Rate 2 06/29/25 05:57 BMI result Body Mass Index 30.8 <Brandi Knox NP - Last Filed: 07/01/25 07:52> Const: General: cooperative, comfortable, alert and awake <ANTONIO Crockett - Last Filed: 07/02/25 10:50> Nutritional Appearance: average body habitus <ANTONIO Crockett - Last Filed: 07/02/25 10:50> Orientation/consciousness: patient oriented x3 <ANTONIO Crockett - Last Filed: 07/02/25 10:50> Resp: Effort & Inspection: normal respiratory effort, able to speak in complete sentences, no respiratory distress and no use of accessory muscles <ANTONIO Crockett - Last Filed: 07/02/25 10:50> Cardio: Rate: bradycardic <ANTONIO Crockett - Last Filed: 07/02/25 10:50> Neuro: General: patient oriented x3 <ANTONIO Crockett - Last Filed: 07/02/25 10:50> DS: Data Data Completed and Pending Completed studies during hospitalization [Text1]: Procedures Assistance with Respiratory Ventilation, Less than 24 Consecutive Hours, Continuous Positive Airway Pressure (04/15/21) [employer] of Cardiac Rhythm, Single (03/21/24) <Brandi Knox NP - Last Filed: 07/01/25 07:52> Discharge Plan Discharge Anticipated Discharge Date/Time: 07/02/25 10:49 <Brandi Knox NP - Last Filed: 07/01/25 07:52> Patient Disposition: Home Health Service <Brandi Knox NP - Last Filed: 07/01/25 07:52> Discharge Diagnosis: Supraventricular tachycardia Atrial fibrillation/flutter Tikosyn protocol initiation <Brandi Knox NP - Last Filed: 07/01/25 07:52> Supraventricular tachycardia Atrial fibrillation/flutter Tikosyn protocol initiation <ANTONIO Crockett - Last Filed: 07/02/25 10:50> Referrals: Dafne Betancourt MD [Primary Care Provider, Internal Medicine] - 1 Week Noah Montoya MD [Physician, Cardiology] <Brandi Knox NP - Last Filed: 07/01/25 07:52> Discharge Medications: New dofetilide 125 mcg Capsule 250 mcg PO BID 90 Days Qty: 360 0RF metoprolol succinate [Toprol XL] 25 mg tablet extended release 24 hr 25 mg PO DAILY 90 Days Qty: 90 0RF Continued (DME) Cock up splint See Rx Instructions .Route .MEDSUPPLY Qty: 1 0RF Rx Instructions: Wear on right wrist at night. (DME) cane See Rx Instructions .Route .MEDSUPPLY Qty: 1 0RF Rx Instructions: As directed (DME) cane Device See Rx Instructions .Route Qty: 1 0RF Rx Instructions: As directed pantoprazole 40 mg tablet,delayed release (DR/EC) 40 mg PO DAILY@0630 Rx Instructions: take one tablet half an hour before breakfast gabapentin 600 mg tablet 600 mg PO BID Xarelto 20 mg tablet 20 mg PO DAILY@1700 leflunomide 10 mg tablet 10 mg PO DAILY ketorolac 0.5 % drops 1 drp ophthalmic-Right TID Actemra ACTPen 162 mg/0.9 mL pen injector 162 mg SUBCUT WE acetaminophen 650 mg tablet extended release 650 mg PO BID (DME) nebulizers Misc See Rx Instructions .Route Rx Instructions: As directed baclofen 10 mg tablet 10 mg PO TID 30 Days Qty: 90 6RF atorvastatin 40 mg tablet 40 mg PO BEDTIME Qty: 90 3RF sertraline 25 mg tablet 25 mg PO DAILY 90 Days Qty: 90 0RF Discontinued spironolactone 25 mg tablet 25 mg PO DAILY 90 Days Qty: 90 0RF Protocol: Hold for SBP< HOLD for SBP < : 90 metoprolol succinate 50 mg tablet extended release 24 hr 50 mg PO BID <Brandi Knox NP - Last Filed: 07/01/25 07:52> Discharge Orders: Discharge Order (Routine); Ordered 07/02/25 Ordered By: Giovana Marie <Brandi Knox NP - Last Filed: 07/01/25 07:52> Diet: Advance to usual diet <Brandi Knox NP - Last Filed: 07/01/25 07:52> Advance to usual diet <ANTONIO Crockett - Last Filed: 07/02/25 10:50> Activity on Discharge: As tolerated <Brandi Knox NP - Last Filed: 07/01/25 07:52> As tolerated <ANTONIO Crockett - Last Filed: 07/02/25 10:50> Stand Alone Forms: Patient Portal Discharge page <Brandi Knox NP - Last Filed: 07/01/25 07:52> Print Language: Belarusian <Brandi nKox NP - Last Filed: 07/01/25 07:52> Care Plan Goals: Follow up with Cardiology as needed for management of new medications <Brandi Knox NP - Last Filed: 07/01/25 07:52> Health Concerns: Supraventricular tachycardia Atrial fibrillation/flutter Tikosyn protocol initiation <Brandi Knox NP - Last Filed: 07/01/25 07:52> Plan of Treatment: Dose of metoprolol has been changed to Toprol-XL 25 mg once daily Stopped taking spironolactone You have been started on dofetilide (tikosyn) 250 mcg twice daily Call to schedule follow-up appointment with Cardiology in 2 weeks Discharged home with VNA services for close blood pressure monitoring Follow up with primary care provider as needed Take all medications as prescribed <Brandi Knox NP - Last Filed: 07/01/25 07:52> Assessment: See discharge summary <Brandi Knox NP - Last Filed: 07/01/25 07:52>
--- NOTE | 2025-07-01 07:50 | P.PNIM_ITS ---
Subjective Subjective Date of Service: 07/01/25 Interval History: Follow up SVT started in [facility] protocol Review of Systems Review of Systems: Yes all other systems are reviewed and are negative Physical Exam 2 Exam: Exam: Appearing in no acute distress lung sounds are clear to auscultation heart regular rate rhythm, clear S1, S2 positive bowel sounds, abdomen is soft, nontender neuro patient is alert x3, no focal deficits Vital Signs: Vital Signs: Last Vital Signs Temp 98 F 07/01/25 04:00 Pulse 58 07/01/25 04:00 Resp 16 07/01/25 04:27 BP 157/67 H 07/01/25 04:00 Pulse Ox 93 07/01/25 04:00 O2 Del Method Room Air 07/01/25 04:00 O2 Flow Rate 2 06/29/25 05:57 BMI result Body Mass Index 30.8 Objective Data Active Medications Acetaminophen (Acetaminophen 325 Mg Tablet) 975 mg PO Q6H PRN PRN Reason: Pain, Mild 1-3,fever,headache Last Admin: 07/01/25 05:56 Dose: 975 mg Documented By: MASTER Amlodipine Besylate (Amlodipine Besylate 2.5 Mg Tablet) 2.5 mg PO DAILY [facility]; Protocol Last Admin: 06/30/25 08:06 Dose: 2.5 mg Documented By: DIEGO Atorvastatin Calcium (Atorvastatin Calcium 40 Mg Tablet) 40 mg PO BEDTIME [facility] Last Admin: 06/30/25 22:07 Dose: 40 mg Documented By: MASTER Baclofen (Baclofen 10 Mg Tablet) 10 mg PO TID [facility] Last Admin: 06/30/25 22:07 Dose: 10 mg Documented By: MASTER Calcium Carbonate (Calcium Carbonate 750 Mg Tab.Chew) 750 mg PO Q4H PRN PRN Reason: Heartburn Dofetilide (Dofetilide 125 Mcg Capsule) 375 mcg PO BID [facility] Last Admin: 06/30/25 22:36 Dose: 375 mcg Documented By: MIGUEL ÁNGEL Gabapentin (Gabapentin 600 Mg Tablet) 600 mg PO BID [facility] Last Admin: 06/30/25 22:07 Dose: 600 mg Documented By: MASTER Leflunomide (Leflunomide 10 Mg Tablet) 10 mg PO DAILY [facility] Last Admin: 06/30/25 10:35 Dose: 10 mg Documented By: DIEGO Magnesium Hydroxide (Milk Of Magnesia 30 Ml Oral.Susp) 30 ml PO DAILY PRN PRN Reason: Constipation Melatonin (Melatonin 3 Mg Tablet) 6 mg PO BEDTIME PRN PRN Reason: Insomnia Metoprolol Succinate (Metoprolol Succinate Er 25 Mg Tab.Er.24h) 75 mg PO BID [facility]; Protocol Last Admin: 06/30/25 22:09 Dose: 75 mg Documented By: MASTER Omeprazole (Omeprazole 20 Mg Capsule.Dr) 20 mg PO DAILY@0630 [facility] Last Admin: 07/01/25 05:51 Dose: 20 mg Documented By: MASTER Rivaroxaban (Rivaroxaban 20 Mg Tablet) 20 mg PO DAILY@1700 [facility] Last Admin: 06/30/25 16:55 Dose: 20 mg Documented By: DIEGO Sertraline HCl (Sertraline Hcl 25 Mg Tablet) 25 mg PO DAILY [facility] Last Admin: 06/30/25 08:06 Dose: 25 mg Documented By: DIEGO Sodium Chloride (0.9 % Sodium Chloride Flush 3 Ml Syringe) 3 ml IVFLUSH QSHIFT [facility] Last Admin: 07/01/25 05:51 Dose: 3 ml Documented By: MASTER Spironolactone (Spironolactone 25 Mg Tablet) 25 mg PO DAILY [facility]; Protocol Last Admin: 06/30/25 08:06 Dose: 25 mg Documented By: DIEGO Labs 06/29/25 05:12 07/01/25 06:58 Assessment and Plan (1) Paroxysmal A-fib: Status: Acute Plan 70-year-old woman admitted with SVT Bradycardia and hypotension Hold metoprolol and spironolactone Continue Tikosyn as per Cardiology Continue to monitor patient closely Supraventricular tachycardia likely atrial fib with rapid ventricular response now NSR. Hx of ablation. s/p cardizem IV. metoprolol increased, on hold now continue eliquis Seen evaluated by Cardiology, recommended Tikosyn initial dose to 250 mcg b.i.d., increased to 375 mcg b.i.d. Elevated troponin, seems to be chronically elevated. Likely secondary to above. Patient denied chest pain or shortness on breath. No ischemic changes noted on EKG HFpEF. No acute symptoms. Essential hypertension. metoprolol, increased to 75 mg b.i.d Amlodipine 2.5 mg added Continue spironolactone GERD. Continue PPI. Hyperlipidemia. Continue statin. COPD/interstitial lung disease. On home oxygen. Not in acute exacerbation. Continue home inhalers. Rheumatoid arthritis. Continue leflunomide. Obstructive sleep apnea. Nocturnal CPAP. History of CVA with residual right hemiparesis. No acute symptoms. Continue statin. Code status: Full DVT prophylaxis: Xarelto Quality Stroke Does the patient have a stroke diagnosis?: No VTE Prior VTE?: No VTE Risk Level:: Medical - moderate - high VTE Device Contraindication: Treatment Not Indicated VTE Drug Contraindication: N/A - Med Ordered
[2025-07-01 08:16] LABS: Anion Gap 13 (12-20); Blood Urea Nitrogen 10 mg/dL (9-16); Calcium 9.1 mg/dL (8.4-10.2); Carbon Dioxide 21 mmol/L (22-29); Chloride 111 mmol/L (96-108); Creatinine Clr Calc Pharmacy 71.6; Estimated Glomerular Filt Rate > 60; Potassium 4.2 mmol/L (3.3-5.1); Sodium 141 mmol/L (135-145)
--- NOTE | 2025-07-01 10:37 | PM.PNCARD ---
Subjective Subjective Date of Service: 07/01/25 Principal diagnosis: Paroxysmal atrial fibrillation, elevated troponins Interval history: Patient is feeling well today. No overnight atrial fibrillation. However this morning noted to have sinus bradycardia with heart rate in the upper 40s. QTC is still Abilify 100 milliseconds. She has no chest pain. No shortness of breath no orthopnea or PND. No lightheadedness. Blood pressure is on the low side. Would increase her metoprolol yesterday because of elevated heart rate including with exercise. Denies any orthopnea. Review of Systems Review of Systems Yes all other systems are reviewed and are negative Physical Exam Vital Signs: Last Vital Signs Temp 98.2 F 07/01/25 08:00 Pulse 49 L 07/01/25 08:09 Resp 18 07/01/25 08:00 BP 101/58 L 07/01/25 09:58 Pulse Ox 94 07/01/25 08:00 O2 Del Method Room Air 07/01/25 08:00 O2 Flow Rate 2 06/29/25 05:57 BMI result Body Mass Index 30.8 Const General: cooperative, comfortable, alert and awake Nutritional Appearance: overweight Orientation/consciousness: patient oriented x3 Limitations: no limitations Neck Neck: Yes trachea midline, Yes supple and Yes no JVD Resp Effort & Inspection: normal respiratory effort Auscultation: clear to auscultation bilaterally Cardio Jugular venous distension: no JVD Palpation: normal PMI Rate: regular rate Rhythm: regular rhythm Heart sounds: S1 normal heart sound present, S2 normal heart sound present, no click, no gallops and no murmurs GI Auscultation: normal bowel sounds Skin General skin exam: no rashes or lesions noted Neuro General: patient oriented x3 and no focal motor deficits Extrem General: Yes no clubbing, cyanosis or edema Objective Labs and Meds 06/29/25 05:12 07/01/25 06:58 Lab results: Laboratory Results - last 24 hr 07/01/25 06:58 Hold Purple Top SEE NOTE Sodium 141 Potassium 4.2 Chloride 111 H Carbon Dioxide 21 L Anion Gap 13 BUN 10 Creatinine 0.61 Estim Creat Clear Calc 71.6 Estimated GFR > 60 Random Glucose 82 Calcium 9.1 Progress Note: A&P Assessment and plan (1) Paroxysmal atrial flutter: Status: Acute Assessment and Plan: Paroxysmal atrial flutter with overnight has developed bradycardia with increased dose of metoprolol which is unusual. May suggest sinoatrial robyn dysfunction. However will Holter morning metoprolol dose to reduce risk of polymorphic VT. Reduce to Toprol-XL 50 mg b.i.d. starting this evening. Continue with Tikosyn dose. She is tolerating this well. QTC interval was acceptable. One more day of monitoring. Continue aggressive blood pressure control. Continue full oral anticoagulation. (2) Elevated troponin: Status: Acute Assessment and Plan: Troponin elevation setting of high ventricular rate more suggestive of demand ischemia. Will need coronary evaluation with coronary CTA as outpatient. Continue full oral anticoagulation. Continue statin therapy. Will follow up with you Time Spent With Patient Time: Total time managing care of this patient today ____ minutes. Progress Note: Quality Stroke Does the patient have a stroke diagnosis?: No Procedures Date of Service Date of Service: 07/01/25
--- NOTE | 2025-07-01 10:42 | MHC.CM.PN ---
Per ROUNDS discussion, Patient is not yet medically cleared for dc (1 more day of Tikosyn & Bradycardia); Home/resume services is the goal and CM will continue to follow.
--- NOTE | 2025-07-01 12:28 | ECG_ITS ---
Test Reason : QTc check 2-3 hours after tikosyn Blood Pressure : */* mmHG Vent. Rate : 56 BPM Atrial Rate : 56 BPM P-R Int : 180 ms QRS Dur : 70 ms QT Int : 544 ms P-R-T Axes : 31 8 74 degrees QTcB Int : 524 ms Sinus bradycardia Prolonged QT Abnormal ECG When compared with ECG of 01-Jul-2025 07:53, QT has lengthened Referred By: Brandi Knox Electronically Signed By: PARIS RAIN MD
--- NOTE | 2025-07-01 21:14 | ECG_ITS ---
Test Reason : QT CK Blood Pressure : */* mmHG Vent. Rate : 73 BPM Atrial Rate : 73 BPM P-R Int : 168 ms QRS Dur : 60 ms QT Int : 440 ms P-R-T Axes : 15 1 71 degrees QTcB Int : 484 ms Normal sinus rhythm with sinus arrhythmia Nonspecific ST abnormality Abnormal ECG When compared with ECG of 01-Jul-2025 12:28, QT has shortened Referred By: Brandi Knox Electronically Signed By: PARIS RAIN MD
--- NOTE | 2025-07-01 23:50 | ECG_ITS ---
Test Reason : QT CK Blood Pressure : */* mmHG Vent. Rate : 56 BPM Atrial Rate : 56 BPM P-R Int : 170 ms QRS Dur : 70 ms QT Int : 490 ms P-R-T Axes : 15 9 67 degrees QTcB Int : 472 ms Sinus bradycardia Otherwise normal ECG When compared with ECG of 01-Jul-2025 21:14, No significant change was found Referred By: Brandi Knox Electronically Signed By: PARIS RAIN MD
[2025-07-02] VITALS: BP 82/62; PULSE 66; RESP 20; TEMP 36.2; O2SAT 98
[2025-07-02 03:17] VITALS: BP 111/59; PULSE 97; RESP 20; TEMP 35.8; O2SAT 95
[2025-07-02 03:35] VITALS: PULSE 64; RESP 16; O2SAT 97
--- NOTE | 2025-07-02 06:00 | ECG_ITS ---
Test Reason : QTC check Blood Pressure : */* mmHG Vent. Rate : 75 BPM Atrial Rate : 75 BPM P-R Int : 170 ms QRS Dur : 64 ms QT Int : 398 ms P-R-T Axes : 25 19 69 degrees QTcB Int : 444 ms Normal sinus rhythm Normal ECG When compared with ECG of 01-Jul-2025 23:50, No significant change was found Referred By: Brandi Knox Electronically Signed By: PARIS RAIN MD
[2025-07-02 07:30] VITALS: BP 130/67; PULSE 58; RESP 18; TEMP 36.4; O2SAT 96
[2025-07-02] MEDS: 0.9 % Sodium Chloride Flush 3 ML SYRINGE IVFLUSH (09:31)
--- NOTE | 2025-07-02 10:09 | P.PNCA_ITS ---
Subjective Subjective Date of Service: 07/02/25 Principal diagnosis: Paroxysmal atrial fibrillation, elevated troponins Interval history: Symptomatic atrial fibrillation troponin leak. Has remained in sinus rhythm. Last night blood pressure is on the lower side. It seems like a blood pressure medications has been hold for couple of days. She was remained in sinus rhythm. QTC interval has improved after reduction in Tikosyn dose. Review of Systems Review of Systems Yes all other systems are reviewed and are negative Physical Exam Vital Signs: Last Vital Signs Temp 97.6 F 07/02/25 07:30 Pulse 58 07/02/25 07:30 Resp 18 07/02/25 07:30 BP 130/67 07/02/25 07:30 Pulse Ox 96 07/02/25 07:30 O2 Del Method Room Air 07/02/25 07:30 O2 Flow Rate 2 06/29/25 05:57 BMI result Body Mass Index 30.8 Objective Labs and Meds 06/29/25 05:12 07/01/25 06:58 Progress Note: A&P Assessment and plan (1) Paroxysmal atrial flutter: Status: Acute Assessment and Plan: Paroxysmal atrial flutter also history of atrial fibrillation prior ablation. Came in with rapid atrial flutter. Symptomatic. Her response in the hospital with a blood pressure medication raises the possibility of noncompliance at home. Unsure about this. Patient denies it. Would continue with Tikosyn 250 mcg b.i.d.. Will also lower Toprol to 25 mg daily. Advised to report any new symptoms. Follow up in the clinic in 2 weeks. Importance of compliance with medication was discussed (2) Elevated troponin: Status: Acute Assessment and Plan: Elevated troponins in the setting of rapid atrial flutter. Most likely demand ischemia although raises the possibility of underlying coronary artery disease. Will obtain a coronary CTA in the future at [facility]. Continue statin therapy. Continue full oral anticoagulation. (3) Essential hypertension: Status: Acute Assessment and Plan: With the usual home medication her blood pressure is on the lower side yesterday. The blood pressure medication including amlodipine which was added as well as spironolactone and metoprolol has been held. Will just switch her to metoprolol 25 mg daily. Importance of compliance with medication as well as low-salt diet was discussed. Follow up in the clinic in 2 weeks time. Thank you for allowing me to partake in her care Time Spent With Patient Time: Total time managing care of this patient today ____ minutes. Progress Note: Quality Stroke Does the patient have a stroke diagnosis?: No Procedures Date of Service Date of Service: 07/02/25
--- NOTE | 2025-07-02 10:39 | P.DS_ITS ---
DS: Providers Provider Date of admission: 06/29/25 02:22 Primary care physician: Dafne Pollard MD Consults: 06/29/25 02:48 Consult to Cardiology Routine Consulting Provider: [facility] Reason for consultation: SVT elevated troponin Has provider been notified: No DS: Diagnosis Discharge Diagnosis (1) Paroxysmal atrial flutter: Status: Acute (2) Elevated troponin: Status: Acute (3) Essential hypertension: Status: Acute DS: Summary Hospital Course Hospital Course: History and physical as per admitting provider. Leeanne Gordillo is a 70 years old woman with a past medical history significant for paroxysmal atrial flutter status post ablation, essential hypertension, HFpEF, COPD on home O2 and LOW on CPAP was brought to the emergency department via EMS due to dizziness upon standing up. She denied associated chest pain, shortness on breath, headache, fever, chills, abdominal pain, nausea, vomiting or diarrhea. She denied alcohol abuse, tobacco smoking or illicit drug use. In the ED, she was found to have tachycardia, supraventricular tachycardia and hypotension of 81/55. Last blood pressure is 116/61. She is on 2 L/min supplemental oxygen via nasal cannula which is her baseline. Blood workup showed no leukocytosis. Hemoglobin is 12.5 and platelets 121. There are no significant electrolyte imbalances. CO2 is 20, anion gap 13 BUN 19 and creatinine 0.93. Her troponin is elevated at 365.8 then 472.4. Urinalysis is unremarkable. Initial EKGs is consistent with SVT. Most recent ECG showed sinus rhythm with 1st AV block and premature atrial complexes. ED tx: Diltiazem 18 mg IV, NS 1 L bolus IV 70-year-old patient treated for supraventricular tachycardia, atrial fibrillation with rapid ventricular response. Patient initiated on Tikosyn protocol at 375 mcg b.i.d., metoprolol was also increased for better blood pressure control and amlodipine was added as well. She is on Eliquis at home which we will continue she should follow up with Cardiology for management of these medications. QTC has been stable during hospitalization Elevated troponin. Chronically elevated. No chest pain or ischemic changes noted on EKG History of heart failure with preserved ejection fraction. No acute exacerbation during hospitalization Hypertension. Patient's metoprolol was increased to 75 mg b.i.d., she may continue spironolactone and amlodipine 2.5 mg daily was added GERD. Continue PPI Hyperlipidemia. Continue statin History of COPD/interstitial lung disease. On oxygen at home. No acute exacerbation during hospitalizations. May continue inhalers Rheumatoid arthritis. Continue leflunomide Obstructive sleep apnea. On nocturnal CPAP History of CVA with residual right hemiparesis. No acute symptoms. Continue statin Physical Exam Vital Signs: Vital Signs: Last Vital Signs Temp 97.6 F 07/02/25 07:30 Pulse 58 07/02/25 07:30 Resp 18 07/02/25 07:30 BP 130/67 07/02/25 07:30 Pulse Ox 96 07/02/25 07:30 O2 Del Method Room Air 07/02/25 07:30 O2 Flow Rate 2 06/29/25 05:57 BMI result Body Mass Index 30.8 DS: Data Data Completed and Pending Completed studies during hospitalization [Text1]: Procedures Assistance with Respiratory Ventilation, Less than 24 Consecutive Hours, Continuous Positive Airway Pressure (04/15/21) Hinduism of Cardiac Rhythm, Single (03/21/24) Discharge Plan Discharge Patient Disposition: Home, Self-Care Discharge Diagnosis: Supraventricular tachycardia Atrial fibrillation/flutter Tikosyn protocol initiation Referrals: Dafne Betancourt MD [Primary Care Provider, Internal Medicine] - 1 Week Noah Montoya MD [Physician, Cardiology] Discharge Medications: New amlodipine 2.5 mg Tablet 2.5 mg PO DAILY Qty: 30 0RF Protocol: Hold for SBP< HOLD for SBP < : 90 dofetilide 125 mcg Capsule 375 mcg PO BID Qty: 180 0RF metoprolol succinate 25 mg Tablet Extended Release 24 Hr 75 mg PO BID Qty: 180 0RF Protocol: Hold for SBP/HR < HOLD for SBP < : 90 HOLD for HR < : 60 Continued (DME) Cock up splint See Rx Instructions .Route .MEDSUPPLY Qty: 1 0RF Rx Instructions: Wear on right wrist at night. (DME) cane See Rx Instructions .Route .MEDSUPPLY Qty: 1 0RF Rx Instructions: As directed (DME) cane Device See Rx Instructions .Route Qty: 1 0RF Rx Instructions: As directed spironolactone 25 mg tablet 25 mg PO DAILY 90 Days Qty: 90 0RF Protocol: Hold for SBP< HOLD for SBP < : 90 pantoprazole 40 mg tablet,delayed release (DR/EC) 40 mg PO DAILY@0630 Rx Instructions: take one tablet half an hour before breakfast gabapentin 600 mg tablet 600 mg PO BID Xarelto 20 mg tablet 20 mg PO DAILY@1700 leflunomide 10 mg tablet 10 mg PO DAILY ketorolac 0.5 % drops 1 drp ophthalmic-Right TID Actemra ACTPen 162 mg/0.9 mL pen injector 162 mg SUBCUT WE acetaminophen 650 mg tablet extended release 650 mg PO BID (DME) nebulizers Misc See Rx Instructions .Route Rx Instructions: As directed baclofen 10 mg tablet 10 mg PO TID 30 Days Qty: 90 6RF atorvastatin 40 mg tablet 40 mg PO BEDTIME Qty: 90 3RF sertraline 25 mg tablet 25 mg PO DAILY 90 Days Qty: 90 0RF Discontinued metoprolol succinate 50 mg tablet extended release 24 hr 50 mg PO BID Diet: Advance to usual diet Activity on Discharge: As tolerated Stand Alone Forms: Patient Portal Discharge page Print Language: Kinyarwanda Care Plan Goals: Follow up with Cardiology as needed for management of new medications Health Concerns: Supraventricular tachycardia Atrial fibrillation/flutter Tielissasypatricia protocol initiation Plan of Treatment: Follow up with primary care provider as needed Take all medications as prescribed Assessment: See discharge summary
--- NOTE | 2025-07-02 10:50 | P.F2F_ITS ---
Service Date Service Date: 07/02/25 Encounter Date of encounter: 07/02/25 Reasons for Services Signs and symptoms assessed: Needs [facility] for medication adjustment, follow heart rate and blood pressure MD Overseeing Care: Dafne Pollard Homebound: Leaving the home is medically contraindicated at this time without the asist of a device and/or another person due th the listed conditions above and below. Reason homebound: other Certification: Based on the above findings, I certify that this patient is confined to the home and needs intermittent [facility] care, physical therapy and/or speech therapy, or continues to need occupational therapy. The patient is under my care, and I have initiated the establishment of the plan of care. The patient will be followed by a physician who will periodically review the plan of care. Time Spent With Patient Time: Total time managing care of this patient today ____ minutes.
--- NOTE | 2025-07-02 10:55 | MHC.CM.PN ---
Patient has been medically cleared for dc to home today, with services. A referral was made to [facility], who has been made aware of today's dc. Last IMM was addressed on 06/30/2025.
== END 2025-07-02 11:30 | disposition home health service (06) | DRG 309 ==
LOC: HO.ED 06-29 02:20 → HO.EDOVER 06-29 02:27 → HO.IMC 06-29 22:49
PROVIDERS: Nurse Practitioner Acute Care; Physician Assistant; Admitting Provider Internal Medicine; Emergency Provider Emergency Medicine; PCP Internal Medicine; Visit Provider Physician Assistant Medical
DX: I47.10 Supraventricular tachycardia, unspecified (principal); I24.89 Other forms of acute ischemic heart disease; J96.11 Chronic respiratory failure with hypoxia; I69.351 Hemiplegia and hemiparesis following cerebral infarction affecting right dominant side; I50.32 Chronic diastolic (congestive) heart failure; I11.0 Hypertensive heart disease with heart failure; I48.0 Paroxysmal atrial fibrillation; Z99.81 Dependence on supplemental oxygen; I95.9 Hypotension, unspecified; R94.31 Abnormal electrocardiogram [ECG] [EKG]; M05.9 Rheumatoid arthritis with rheumatoid factor, unspecified; K21.9 Gastro-esophageal reflux disease without esophagitis; E78.5 Hyperlipidemia, unspecified; G47.33 Obstructive sleep apnea (adult) (pediatric); Z87.891 Personal history of nicotine dependence; Z79.01 Long term (current) use of anticoagulants; Z79.899 Other long term (current) drug therapy
CPT/HCPCS: 36415; 71045; 80048; 80053; 81001; 83735; 84484; 85025; 85027; 85610; 93005; 93306; 94660; 99285; J1163; Q9957

== ENCOUNTER → 2025-06-28 21:16 | Outpatient (BNV) | payer OTHER, SELFPAY | PROVIDERS: Admitting Provider Internal Medicine; Emergency Provider Emergency Medicine; Visit Provider Internal Medicine Cardiovascular Disease | DX: I48.92 Unspecified atrial flutter (principal); I49.1 Atrial premature depolarization | CPT/HCPCS: 93010 ==

== ENCOUNTER 2025-06-29 02:22 | Outpatient (BNV) | payer OTHER, SELFPAY | END 2025-06-30 09:18 | PROVIDERS: Admitting Provider Internal Medicine; Emergency Provider Emergency Medicine; PCP Internal Medicine; Visit Provider Internal Medicine Cardiovascular Disease | DX: R00.1 Bradycardia, unspecified (principal); R07.9 Chest pain, unspecified | CPT/HCPCS: 93010 ==

== ENCOUNTER 2025-06-29 02:22 | Outpatient (BNV) | payer OTHER, SELFPAY | END 2025-07-01 07:53 | PROVIDERS: Admitting Provider Internal Medicine; Emergency Provider Emergency Medicine; PCP Internal Medicine; Visit Provider Internal Medicine Cardiovascular Disease | DX: R00.1 Bradycardia, unspecified (principal); I49.9 Cardiac arrhythmia, unspecified | CPT/HCPCS: 93010 ==

== ENCOUNTER 2025-06-29 02:22 | Outpatient (BNV) | payer OTHER, SELFPAY | END 2025-06-29 08:00 | PROVIDERS: Admitting Provider Internal Medicine; Emergency Provider Emergency Medicine; Visit Provider Radiology Diagnostic Radiology | DX: I48.92 Unspecified atrial flutter (principal); J98.4 Other disorders of lung; R91.8 Other nonspecific abnormal finding of lung field | CPT/HCPCS: 71045 ==

== ENCOUNTER 2025-06-29 02:22 | Outpatient (BNV) | payer OTHER, SELFPAY | END 2025-07-02 06:00 | PROVIDERS: Admitting Provider Internal Medicine; Emergency Provider Emergency Medicine; PCP Internal Medicine; Visit Provider Internal Medicine Cardiovascular Disease | DX: Z13.6 Encounter for screening for cardiovascular disorders (principal) | CPT/HCPCS: 93010 ==

== ENCOUNTER → 2025-06-29 02:22 | Outpatient (BNV) | payer OTHER, SELFPAY | PROVIDERS: Admitting Provider Internal Medicine; Emergency Provider Emergency Medicine; Visit Provider Internal Medicine | DX: I48.0 Paroxysmal atrial fibrillation (principal) | CPT/HCPCS: 99223; 99232; 99239; 99499; G0180 ==

== ENCOUNTER → 2025-06-29 02:22 | Outpatient (BNV) | payer OTHER, SELFPAY | PROVIDERS: Admitting Provider Internal Medicine; Emergency Provider Emergency Medicine; Visit Provider Internal Medicine Cardiovascular Disease | DX: I48.92 Unspecified atrial flutter (principal); I42.2 Other hypertrophic cardiomyopathy; I51.7 Cardiomegaly; I35.8 Other nonrheumatic aortic valve disorders | CPT/HCPCS: 93306; 99222; 99233 ==

== ENCOUNTER → 2025-07-08 08:56 | Outpatient (REF) | payer OTHER, SELFPAY ==
--- NOTE | ~2025-07-08 | NM_ITS ---
Lexiscan Myocardial perfusion study Indication: Elevated troponins Technique: The patient was brought in for a Lexiscan perfusion study on 07/08/2025 and was injected 0.4 mg of Lexiscan intravenously. Within a minute of this injection 25 mCi of sestamibi was given intravenously. Images were obtained using the SPECT gamma camera interlaced with the gating device. Images were obtained in supine position. Resting perfusion study was performed on 07/09/2025. Patient was administered 25 mCi of sestamibi intravenously at rest. Images were then obtained in supine position. Total DLP 79 mGy-cm. Images were processed with the software and compared side to side in short axis, horizontal long axis and vertical long axis views. Findings: Raw aquisition reviewed. The stress perfusion study showed diminished tracer uptake in the mid lateral wall. There is improvement with CT attenuation correction and hence suggestive of soft tissue attenuation artifact. The gated study shows normal LV systolic function with calculated LVEF of > 70%. LV cavity is normal in size. The gated study shows normal wall thickening and contraction of segments. Resting study shows diminished tracer uptake in the lateral wall. There is improvement with CT attenuation correction suggestive of soft tissue attenuation artifact. Gating at rest reveals normal wall motion with ejection fraction at > 70%. The findings are consistent with fixed lateral defect. Probably artifactual. No clear reversible defects. NM/NM cardiolite stress test Impression: 1. Myocardial perfusion imaging study shows no evidence of ischemia. Fixed appearing lateral defect, possibly artifactual. 2. Gated LVEF is > 70% during stress and rest. 3. Transient ischemic dilatation not present. EKG component of the test reported separately. Electronically signed by: Chuy Frederick MD 07/09/2025 04:15 PM EDT
--- NOTE | 2025-07-08 08:59 | CA_ITS ---
Acquisition Time: 2025-07-08 10:01:14 Total Exercise Time: 00:02:00 Test Indications: ELEVATED TROP,TACHYARRHYTHMIAS Medications: SEE DISCHARGE SUMMARY Protocol: LEXISCAN Max HR: 95 BPM 63% of Pred: 149 BPM Max BP: 114/68 mmHG Max Work Load: 1.0 METS Pharmacological stress test with Lexiscan while pt swings her legs and moves her arm, with reports of SOB and headache, without any arrythmias, with normotensive response to injection. Nondiagnostic EKG for ischemia. In recovery, pt treated with IVP Aminophylline 75 mg to reverse Lexiscan after which pt slowly feeling back to baseline. Nuclear images pending. Test reviewed with Dr. Frederick. Referred By: Malorie Wright Electronically Signed By: Kristofer Cornell
--- OUTSIDE RECORDS SUMMARY | 2025-07-08 09:26 | XMS_ITS | Clinical Summary ---
Author Organization [employer] Address [address] [place] [address] Care Team Providers Care Pump Tender Name Role Phone Provider, Not In System [...] patient's age to complete this topic Insurance [facility] [place] [address] [place] [address] Care Teams Pump Tender Relationship Specialty Start Date End Date Provider, Not In System PCP - General 10/13/22
== END ==
LOC: HO.CARD 08:56
PROVIDERS: PCP Internal Medicine; Visit Provider Nurse Practitioner Family
DX: R07.9 Chest pain, unspecified (principal); R79.89 Other specified abnormal findings of blood chemistry
CPT/HCPCS: 78452; 93017; A9500; J0280; J2785

== ENCOUNTER → 2025-07-08 08:59 | Outpatient (BNV) | payer OTHER, SELFPAY | PROVIDERS: PCP Internal Medicine | DX: I42.8 Other cardiomyopathies (principal) | CPT/HCPCS: 78452; 93016; 93018 ==

== ENCOUNTER 2025-07-27 08:54 | Outpatient (AMB) | payer OTHER, SELFPAY ==
--- NOTE | 2025-07-27 09:07 | MHC.PC.OV ---
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 ] dofetilide 250 mcg (2 x 125 mcg) PO BID 90 days gabapentin 600 mg PO BID PRN 90 days ketorolac 0.5% 1 drp ophthalmic-Right TID leflunomide 10 mg PO DAILY metoprolol succinate ER (Toprol XL) 25 mg PO DAILY 90 days nebulizers As directed pantoprazole 40 mg PO DAILY@0630 rivaroxaban (Xarelto) 20 mg PO DAILY@1700 sertraline 25 mg PO DAILY 90 days tocilizumab (Actemra ACTPen) 162 mg subcut WE Tobacco use date assessed: 07/27/25 Fall risk assessment: No Falls in past year Last assessed Fall Risk: 07/27/25 Dental Screening Dental Screen Date: 07/27/25 Did you have a dental visit in the last 12 months?: No Did you have a dental problem in the last 6 months where you did not have access to dental care?: No Was dental information given to patient?: No HPI HPI Comments History of Present Illness Details The patient is a 70-year-old female presenting for management of multiple chronic conditions including rheumatoid arthritis, atrial fibrillation, hypertension, osteoporosis, and depression. Rheumatoid arthritis has been a significant concern, with the patient receiving treatment including leflunomide and Actemra. The patient reports that the injections for arthritis make her feel unwell, but she continues with them as previous treatments were ineffective. The patient has a history of atrial fibrillation, managed with dofetilide and metoprolol. She was recently hospitalized for five days due to elevated heart rates and was treated with Cardizem drip. Amlodipine was recommended for blood pressure management, but it is not currently part of her regimen. Hypertension management has been challenging, with previous medications held due to low blood pressure. The patient's blood pressure is currently slightly elevated, and spironolactone is being considered for reintroduction. Osteoporosis is being managed with Prolia, and the patient is scheduled for her next injection soon. The patient reports depressive symptoms, which are being managed with sertraline. She notes some improvement but continues to experience daily challenges. [facility] Medical History (Updated 07/27/25 @ 09:50 by Dafne Pollard MD) Paroxysmal atrial fibrillation (~2017) Supraventricular tachycardia Paroxysmal A-fib Paroxysmal atrial flutter Esophageal abnormality Encounter for monitoring denosumab therapy Osteoarthritis of left shoulder History of cardiac monitoring Diastolic heart failure Rheumatoid arthritis flare Abdominal discomfort Left shoulder pain Right wrist pain Right shoulder pain Obesity (BMI 30-39.9) Preoperative clearance Abnormal chest x-ray Obesity Pneumonitis Breast pain, left Diastolic dysfunction Pre-op chest exam Osteoarthritis of shoulders, bilateral Asthma-COPD overlap syndrome Personal history of nicotine dependence History of CVA (cerebrovascular accident) (~2017) ILD (interstitial lung disease) Post-menopausal Hypoxia Seropositive rheumatoid arthritis Right hemiplegia (~2017) Chronic anticoagulation GERD (gastroesophageal reflux disease) Rheumatoid arthritis Obstructive sleep apnea on CPAP Essential hypertension Pure hypercholesterolemia Surgical History Cataract History of appendectomy History of foot surgery History of shoulder surgery Family History Father No problems noted. Mother No problems noted. Brother Stomach cancer Social History Household Members: None Housing: Assisted Living Facility Are you a primary career coach to a significant other at home: No Do you presently have visiting nurse or other home services: Yes ([employer]) Alcohol intake: current Alcohol intake frequency: holidays/special occasions only Alcohol type: wine Patient Tobacco Use Status: Former Tobacco user Tobacco use type: Cigarette Years Smoked: 20 years e-Cigarette/Vaping Use: Never Used Second Hand Smoke Exposure: No service: No Current occupational status: retired Cognitive needs: No Hearing needs: Yes Vision needs: No Questionnaire PHQ-9 Over the last 2 weeks, how often have you been bothered by any of the following problems? 1. Little interest or pleasure in doing things: several days 2. Feeling down, depressed, or hopeless: nearly every day 3. Trouble falling or staying asleep, or sleeping too much: several days 4. Feeling tired or having little energy: more than half the days 5. Poor appetite or overeating: nearly every day 6. Feeling bad about yourself - or that you are a failure or have let yourself or your family down: several days 7. Trouble concentrating on things, such as reading the newspaper or watching television: several days 8. Moving or speaking so slowly that other people could have noticed. Or the opposite - being so fidgety or restless that you have been moving around a lot more than usual: several days 9. Thoughts that you would be better off or of hurting yourself in some way: several days Total score: 14 Depression Screening Interpretation: Positive (no suicidal thoughts) Depression Screening Follow-up: Existing condition, In treatment and Follow-up Visit Requested Depression Screening Done: Yes 48116 - PHQ-9 Billing: Yes Source: Developed by Drs. Kai Mejia, Jade Cheng, Neil Gannon and colleagues, with an educational phil from [employer]. Thrive Questionnaire Date Thrive assessed: 07/27/25 I am a: Patient What is your living situation today?: I have a steady place to live Within the past 12 months, did the food you bought not last and you didn't have the money to get more?: I choose not to answer this question Within the past 12 months, did you worry whether your food would run out before you got money to buy more?: I choose not to answer this question Do you have trouble paying for medicines?: I choose not to answer this question Do you have trouble getting transportation to medical appointments?: I choose not to answer this question Do you have trouble paying your heating and electricity bill?: I choose not to answer this question Do you have trouble taking care of your child, family member or friend?: I choose not to answer this question Do you have trouble with day-to-day activities such as bathing, preparing meals, shopping, managing finances, etc.?: I choose not to answer this question Are you currently unemployed and looking for a job?: I choose not to answer this question Are you interested in more education?: I choose not to answer this question Please select the resources that you would like help with: None Currently or been in a relationship where the following occur: I choose not to answer THRIVE Score: 0 AUDIT C Alcohol Use Questionnaire (AUDIT-C) 1. How often do you have a drink containing alcohol?: Never Total Score: 0 Score Reviewed/Action Taken: No GENNY-7 AMB Questionnaire GENNY-7 Date GENNY - 7 assessed: 07/27/25 Feeling nervous, anxious, or on edge: 3 = Nearly every day Not being able to stop or control worryin = Not at all Worrying too much about different things: 1 = Several days Trouble relaxin = Several days Being so restless that it is hard to sit still: 1 = Several days Becoming easily annoyed or irritable: 1 = Several days Feeling afraid as if something awful might happen: 0 = Not at all Total GENNY-7 score (0-4 normal; 5-9 mild; 10-14 moderate; 15-21 severe): 7 Source: Developed by Drs. Kai Mejia, Jade Cheng, Neil Gannon and colleagues, with an educational phil from [employer]. GENNY-7 Assessment Billing GENNY-7 Assessment Tool: GENNY-7 Assessment 62396 Review of Systems Const All systems reviewed & are unremarkable except as noted in HPI and below Card Denies chest pain at rest, Denies chest pain with activity, Denies edema, Denies irregular heart rhythm, Denies claudication, Denies dyspnea, Denies dyspnea on exertion, Denies orthopnea, Denies paroxysmal nocturnal dyspnea and Denies slow heart rate Resp Denies cough, Denies dyspnea and Denies dyspnea on exertion GI Denies abdominal pain, Denies change in bowel habits, Denies excessive flatus, Denies nausea and Denies vomiting Denies urinary incontinence, Denies urinary hesitancy and Denies urinary urgency Musc Reports arthralgias Physical exam (Primary Care) Vital Signs: Last Vital Signs Temp 97.1 F 07/27/25 09:08 Pulse 72 07/27/25 09:08 Resp 18 07/27/25 09:08 BP 142/80 H 07/27/25 09:08 Pulse Ox 96 07/27/25 09:08 Oxygen Delivery Method Room Air 07/27/25 09:08 BMI result Body Mass Index 31.1 BMI Assessment/Plan discussion: High BMI High, discussed plan: lifestyle, weight reduction, dietary and physical activity Tobacco/Smoking Status: Tobacco use Status Tobacco use date assessed 07/27/25 07/27/25 09:20 Patient Tobacco Use Status Former Tobacco user 07/27/25 09:20 Tobacco use type Cigarette 07/27/25 09:20 e-Cigarette/Vaping Use Never Used 07/27/25 09:20 PHQ-9: PHQ-9 Score PHQ-9: Total score 14 07/27/25 09:20 Depression Screening Interpretation: Positive (no suicidal thoughts) Depression Screening Follow-up: Existing condition, In treatment and Follow-up Visit Requested Thrive Assessment: Date of Thrive Assessment Date Thrive assessed 07/27/25 07/27/25 09:20 Currently or been in a relationship where the following occur: I choose not to answer Resp Effort & Inspection: normal respiratory effort Auscultation: clear to auscultation bilaterally Cardio Jugular venous distension: no JVD Rate: regular rate Rhythm: regular rhythm Heart sounds: S1 normal heart sound present and S2 normal heart sound present GI Inspection: Yes normal to inspection Palpation (GI): Soft to palpation and nontender Auscultation: normal bowel sounds Extrem General: Yes full ROM Coding Level of Care Code Est Pt Level 4 (31783) Complex EM visit Add On G2211 Diagnoses Mild recurrent major depression F33.0 Essential hypertension I10 Rheumatoid arthritis involving multiple sites with positive rheumatoid factor M05.79 Rheumatoid arthritis location: multiple sites Rheumatoid factor presence: with rheumatoid factor Paroxysmal atrial fibrillation I48.0 Age-related osteoporosis without current pathological fracture M81.0 Osteoporosis type: age-related Presence of current pathological fracture: without current pathological fracture Additional Codes GENNY-7 Assessment Billing - GENNY-7 Assessment Tool: GENNY-7 Assessment 57999 ([id number]) PHQ-9 - 61880 - PHQ-9 Billing: Yes ([id number]) Time Spent (min) 24 Assessment & Plan Assessment & Plan (1) Mild recurrent major depression: Code(s): F33.0 - Major depressive disorder, recurrent, mild Category: Medical (2) Essential hypertension: Code(s): I10 - Essential (primary) hypertension Category: Medical (3) Rheumatoid arthritis: Comment: ++RF +++CCP On Humira from February 2019 to March 2021-discontinued due to congestive heart failure. Orencia started April 2021- present Methotrexate 2018- February 2022 discontinued due to interstitial lung disease Leflunomide added 01/2024 Code(s): M06.9 - Rheumatoid arthritis, unspecified Category: Medical Qualifiers: Rheumatoid arthritis location: multiple sites Rheumatoid factor presence: with rheumatoid factor Qualified Code(s): M05.79 - Rheumatoid arthritis with rheumatoid factor of multiple sites without organ or systems involvement (4) Paroxysmal atrial fibrillation: Onset Date: ~2016 Comment: (Dx 08/2017) Code(s): I48.0 - Paroxysmal atrial fibrillation Category: Medical (5) Osteoporosis: Comment: DEXA 12/2023. Left femur neck -2.3, Left femur total -1.4, AP spine -2.6 Prolia started 01/19/2023 Code(s): M81.0 - Age-related osteoporosis without current pathological fracture Category: Medical Qualifiers: Osteoporosis type: age-related Presence of current pathological fracture: without current pathological fracture Qualified Code(s): M81.0 - Age-related osteoporosis without current pathological fracture Plan Plan Patient was informed and verbally consented to the use of an ambient scribe for clinic note documentation during this visit. 1. Rheumatoid Arthritis The patient continues treatment with leflunomide and Actemra for rheumatoid arthritis, despite experiencing adverse effects from the injections. The plan includes monitoring her response to the current regimen and considering alternative therapies if necessary. 2. Atrial Fibrillation Management of atrial fibrillation includes dofetilide and metoprolol, with a recent hospitalization for elevated heart rates managed with Cardizem drip. Amlodipine was recommended for blood pressure control but is not currently included in her treatment plan. 3. Hypertension The patient's hypertension management is under review, with spironolactone being considered for reintroduction due to current elevated blood pressure readings. 4. Osteoporosis Osteoporosis is managed with Prolia, and the patient is scheduled for her next injection. 5. Depression Depression is being managed with sertraline, with the patient reporting some improvement but ongoing daily challenges. Orders: Orders Vitamin B12 and Folate 4 Months E53.8 - Deficiency of other specified B group vitamins Lipid Panel 4 Months E78.5 - Hyperlipidemia, unspecified Vitamin D 25-OH Total 4 Months E55.9 - Vitamin D deficiency, unspecified Comprehensive [place]. Panel Fast 4 Months I10 - Essential (primary) hypertension Medications: New spironolactone 25 mg PO DAILY 90 tabs 1RF 90 days
[2025-07-27 09:08] VITALS: BP 142/80; PULSE 72; RESP 18; TEMP 36.2; O2SAT 96; BMI 31.1
--- OUTSIDE RECORDS SUMMARY | 2025-07-27 10:15 | XMS_ITS | Clinical Summary ---
Author Organization [employer] Address [address] [place] [address] Care Team Providers Care Dealer Accounts Investigator Name Role Phone Provider, Not In System [...] 1972 Mammogram 1994 COVID-19 Vaccine ( season) 2025 10/13/2022, 03/28/2022, 12/05/2021, Additional history exists Influenza [...] patient's age to complete this topic Insurance [facility] [place] [address] [place] [address] Care Teams Dealer Accounts Investigator Relationship Specialty Start Date End Date Provider, Not In System PCP - General 10/13/22
== END 2025-07-27 09:52 | disposition home or self-care (01) ==
LOC: HO.HMCH 08:55
PROVIDERS: PCP Internal Medicine; Visit Provider Internal Medicine
DX: F33.0 Major depressive disorder, recurrent, mild (principal); I10 Essential (primary) hypertension; M05.79 Rheumatoid arthritis with rheumatoid factor of multiple sites without organ or systems involvement; I48.0 Paroxysmal atrial fibrillation; M81.0 Age-related osteoporosis without current pathological fracture

== ENCOUNTER → 2025-07-27 08:54 | Outpatient (BNVA) | payer OTHER, SELFPAY | PROVIDERS: PCP Internal Medicine; Visit Provider Internal Medicine | DX: I10 Essential (primary) hypertension (principal); M81.0 Age-related osteoporosis without current pathological fracture; F33.0 Major depressive disorder, recurrent, mild; M05.79 Rheumatoid arthritis with rheumatoid factor of multiple sites without organ or systems involvement; I48.0 Paroxysmal atrial fibrillation; Z79.899 Other long term (current) drug therapy | CPT/HCPCS: 96127; 99212 ==

== ENCOUNTER 2025-08-13 09:01 | Outpatient (REF) | payer OTHER, SELFPAY ==
--- OUTSIDE RECORDS SUMMARY | 2025-08-13 09:48 | XMS_ITS | Clinical Summary ---
Author Organization [employer] Address [address] [place] [address] Care Team Providers Care Riverboat Master Name Role Phone Provider, Not In System [...] patient's age to complete this topic Insurance [facility] [place] [address] [place] [address] Care Teams Riverboat Master Relationship Specialty Start Date End Date Provider, Not In System PCP - General 10/13/22
[2025-08-13 13:58] LABS: Alanine Aminotransferase 29 U/L (0-31); Albumin Level 4.1 g/dL (3.5-5.0); Alkaline Phosphatase 60 U/L (39-117); Anion Gap 10 (12-20); Aspartate Amino Transferase 33 U/L (5-31); Blood Urea Nitrogen 13 mg/dL (9-16); Calcium 9.2 mg/dL (8.4-10.2); Carbon Dioxide 26 mmol/L (22-29); Chloride 112 mmol/L (96-108); Estimated Glomerular Filt Rate > 60; Potassium 4.9 mmol/L (3.3-5.1); Sodium 143 mmol/L (135-145); Total Protein 6.5 g/dL (6.5-8.0)
== END 2025-08-13 09:02 | disposition home or self-care (01) ==
LOC: HO.HKASLDS 09:01
PROVIDERS: PCP Internal Medicine; Visit Provider Student in an Organized Health Care Education/Training Program
DX: M81.0 Age-related osteoporosis without current pathological fracture (principal)
CPT/HCPCS: 36415; 80053; 82306

== ENCOUNTER 2025-08-14 12:05 | Outpatient (AMB) | payer OTHER, SELFPAY ==
--- NOTE | 2025-08-14 12:51 | MHC.OFFVIS ---
Vital Signs 08/14/25 12:55 Height 4 ft 11 in Weight 157 lb 6.561 oz BMI 31.8 BP 130/76 Blood Pressure Location Lt brachial Position Sitting Pulse 57 Pulse Source Monitor Intake Visit Reasons: [place] [facility] [place] Machine I Engraver Required: Yes Machine I Engraver Name: Tabatha [id number] marielena Accompanied by: Self / Same As Patient Allergies No Known Allergies (No Known Allergies*) Allergy (Verified 08/14/25 12:59) Medication List - Last Reconciled 08/14/25 by Malorie Wright NP-C acetaminophen ER 650 mg PO BID atorvastatin 40 mg PO BEDTIME baclofen 10 mg PO TID 30 days [cane As directed] cane As directed [Cock up splint Wear on right wrist at night. ] dofetilide 250 mcg (2 x 125 mcg) PO BID 90 days gabapentin 600 mg PO BID PRN 90 days ketorolac 0.5% 1 drp ophthalmic-Right TID leflunomide 10 mg PO DAILY metoprolol succinate ER (Toprol XL) 25 mg PO DAILY 90 days nebulizers As directed pantoprazole 40 mg PO DAILY@0630 rivaroxaban (Xarelto) 20 mg PO DAILY@1700 sertraline 25 mg PO DAILY 90 days spironolactone 25 mg PO DAILY 90 days tocilizumab (Actemra ACTPen) 162 mg subcut WE HPI HPI follow-up [facility] [place]: Details: Leeanne is a 70-year-old female with past medical history of hypertension, hyperlipidemia, obstructive sleep apnea with CPAP use, CVA with mild residual right-sided weakness, asthma/COPD overlap syndrome, diastolic heart failure, paroxysmal atrial flutter on Tikosyn, atrial flutter ablation 09/04/24, who was recently [place] [facility] [place] dizziness and tachycardia, recurrent atrial flutter following stop of Tikosyn. She was restarted on Tikosyn and now presents for follow-up. Today she reports that she has been doing well since her hospital discharge. She offers no concerning symptoms. She recently saw the family dinner service specialist again but does not know the plan of care. She denies recent heart palpitations, chest discomfort or concerning shortness of breath. She is very vague with her answers. No bleeding issues reported with Xarelto. Taking meds as directed. 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 [facility] Medical History Paroxysmal atrial fibrillation (~2017) Supraventricular tachycardia Paroxysmal A-fib Paroxysmal atrial flutter Esophageal abnormality Encounter for monitoring denosumab therapy Osteoarthritis of left shoulder History of cardiac monitoring Diastolic heart failure Rheumatoid arthritis flare Abdominal discomfort Left shoulder pain Right wrist pain Right shoulder pain Obesity (BMI 30-39.9) Preoperative clearance Abnormal chest x-ray Obesity Pneumonitis Breast pain, left Diastolic dysfunction Pre-op chest exam Osteoarthritis of shoulders, bilateral Asthma-COPD overlap syndrome Personal history of nicotine dependence History of CVA (cerebrovascular accident) (~2017) ILD (interstitial lung disease) Post-menopausal Hypoxia Seropositive rheumatoid arthritis Right hemiplegia (~2017) Chronic anticoagulation GERD (gastroesophageal reflux disease) Rheumatoid arthritis Obstructive sleep apnea on CPAP Essential hypertension Pure hypercholesterolemia Surgical History Cataract History of appendectomy History of foot surgery History of shoulder surgery Family History Father No problems noted. Mother No problems noted. Brother Stomach cancer Social History Household Members: None Housing: Assisted Living Facility Are you a primary caretaker to a significant other at home: No Do you presently have visiting nurse or other home services: Yes ([employer]) Alcohol intake: current Alcohol intake frequency: holidays/special occasions only Alcohol type: wine Patient Tobacco Use Status: Former Tobacco user Tobacco use type: Cigarette Years Smoked: 20 years e-Cigarette/Vaping Use: Never Used Second Hand Smoke Exposure: No service: No Current occupational status: retired Cognitive needs: No Hearing needs: Yes Vision needs: No Review of Systems Const All systems reviewed & are unremarkable except as noted in HPI and below Denies daytime sleepiness, Denies difficulty sleeping, Denies snoring, Denies stops breathing during sleep and Denies weakness ENT Denies dizziness Card Denies chest pain, Denies rapid heart rate, Denies irregular heart rhythm, Denies claudication, Denies leg edema, Denies lightheadedness, Denies palpitations, Reports dyspnea, Denies dyspnea on exertion, Denies orthopnea, Denies paroxysmal nocturnal dyspnea and Denies slow heart rate Resp Denies cough, Reports dyspnea, Denies dyspnea on exertion and Denies snoring GI Reports no additional complaints, Denies hematochezia, Denies change in stool character and Denies dyspepsia Musc Denies abnormal gait, Denies muscle weakness and Denies numbness Neuro Denies abnormal gait, Denies dizziness, Denies numbness and Denies weakness Endo Denies palpitations Physical Exam Vital Signs: Last Vital Signs Pulse 57 08/14/25 12:55 BP 130/76 08/14/25 12:55 BMI result Body Mass Index 31.8 Const General: cooperative, healthy appearing, comfortable and no acute distress Orientation/consciousness: patient oriented x3 Neck Neck: Yes normal visual inspection and Yes no JVD Resp Effort & Inspection: normal respiratory effort Auscultation: clear to auscultation bilaterally, no crackles, no rales, no rhonchi and no wheezes Cardio Rate: regular rate Rhythm: regular rhythm Heart sounds: S1 normal heart sound present, S2 normal heart sound present, no gallops, no murmurs and no rubs Neuro General: patient oriented x3 Extrem General: Yes normal to inspection, No no pedal edema and No calf tenderness Psych Appearance: grossly normal Mental Status: mental status grossly normal Speech and movement: Normal speech and movement present Office Procedures EKG Details: Today, read by me, sinus bradycardia, rate 57, QTC 449 milliseconds [id number], Complete Assessment & Plan Assessment & Plan (1) Paroxysmal atrial flutter: Code(s): I48.92 - Unspecified atrial flutter Category: Medical Plan: History of paroxysmal atrial flutter, symptomatic that is treated with rhythm control using Tikosyn. She was previously failed flecainide. She did undergo an atrial flutter ablation 09/04/2024 and she did not see the family dinner service specialist in follow-up. Her Tikosyn was recently stopped and she did have a hospital admission for palpitations, dizziness. She use found to have atrial flutter. During that admission Tikosyn was restarted. EKG today is showing sinus bradycardia, rate 57, QTC 440 milliseconds. She was referred back to electrophysiology and was seen by 07/24/25. His note indicates that he will schedule her for PFA AF ablation . Instructed on avoidance of all stimulants. Continue metoprolol and Tikosyn for rate and rhythm control. Continue Xarelto for anticoagulation. Cardiology office visit and EKG in 3 month, sooner if needed (2) Visit for monitoring Tikosyn therapy: Code(s): Z51.81 - Encounter for therapeutic drug level monitoring; Z79.899 - Other care home (current) drug therapy Category: Medical Plan: As above (3) Chronic anticoagulation: Code(s): Z79.01 - senior care (current) use of anticoagulants Category: Medical Plan: On Xarelto for anticoagulation. No bleeding issues reported. (4) Essential hypertension: Code(s): I10 - Essential (primary) hypertension Category: Medical Plan: Blood pressure goal less than 130/80. Well controlled today. No med changes made. (5) Asthma-COPD overlap syndrome: Code(s): J44.9 - Chronic obstructive pulmonary disease, unspecified Category: Medical Plan: Stable at present (6) Hospital discharge follow-up: Code(s): Z09 - Encounter for follow-up examination after completed treatment for conditions other than malignant neoplasm Category: Medical Plan: Hospital discharge summary and cardiology notes reviewed. Plan Time spent on chart review, documentation, interview and assessment Coding Level of Care Code Est Pt Level 4 (89542) Complex EM visit Add On G2211 Diagnoses Paroxysmal atrial flutter I48.92 Visit for monitoring Tikosyn therapy Z51.81; Z79.899 Chronic anticoagulation Z79.01 Essential hypertension I10 Asthma-COPD overlap syndrome J44.9 Hospital discharge follow-up Z09 CPT Codes EKG - CPT: 69621-[id number], Complete ([id number]) Time Spent (min) 32
[2025-08-14 12:55] VITALS: BP 130/76; PULSE 57; BMI 31.8
--- OUTSIDE RECORDS SUMMARY | 2025-08-14 12:59 | XMS_ITS | Clinical Summary ---
Author Organization [employer] Address [address] [place] [address] Care Team Providers Care Middle School Professional Name Role Phone Provider, Not In System [...] patient's age to complete this topic Insurance [facility] [place] [address] [place] [address] Care Teams Middle School Professional Relationship Specialty Start Date End Date Provider, Not In System PCP - General 10/13/22
== END 2025-08-14 13:26 | disposition home or self-care (01) ==
LOC: HO.HCS 12:06
PROVIDERS: PCP Internal Medicine; Visit Provider Nurse Practitioner Family
DX: I48.92 Unspecified atrial flutter (principal); Z79.899 Other long term (current) drug therapy; Z79.01 Long term (current) use of anticoagulants; I10 Essential (primary) hypertension; J44.9 Chronic obstructive pulmonary disease, unspecified; Z09 Encounter for follow-up examination after completed treatment for conditions other than malignant neoplasm
CPT/HCPCS: 93010; 99214; G2211

== ENCOUNTER → 2025-08-14 12:05 | Outpatient (BNVA) | payer OTHER, SELFPAY | PROVIDERS: PCP Internal Medicine; Visit Provider Nurse Practitioner Family | DX: I10 Essential (primary) hypertension (principal); I48.92 Unspecified atrial flutter; J44.9 Chronic obstructive pulmonary disease, unspecified; Z79.01 Long term (current) use of anticoagulants; Z51.81 Encounter for therapeutic drug level monitoring; Z79.899 Other long term (current) drug therapy | CPT/HCPCS: 93005; 99212 ==

== ENCOUNTER 2025-08-17 08:53 | Outpatient (AMB) | payer OTHER, SELFPAY ==
--- NOTE | 2025-08-17 08:55 | A.OFFVIS_ITS ---
Vital Signs 08/17/25 08:56 Height 4 ft 11 in Weight 154 lb 5.177 oz BMI 31.2 BP 110/56 L Blood Pressure Location Lt brachial Position Sitting Pulse 65 Pulse Source Pulse Oximeter Pulse Oximetry (%) 95 Oxygen Delivery Method Room Air Intake Visit Reasons: Pneumonitis Allergies No Known Allergies (No Known Allergies*) Allergy (Verified 08/17/25 08:58) HPI Comments Details: The patient is a 70-year-old woman with a known history of cardiovascular disease, RA with worsening respiratory symptoms. She was evaluate d in the ER with evidence of airspace disease and pneumonitis. It was not clear if it was medication related. She does a history of rheumatoid arthritis and has been on immunomodulator therapy both with methotrexate and has been on TNF inhibitors. the patient was placed on a prednisone taper. She also required oxygen. She was discharged on oxygen. Today during the visit she is staying that she is feeling better and she is not using the oxygen. Therefore we did go for 6 minutes walk test in the patient did well her Peterson dyspnea score was 3/10 and she was able to maintain a pulse ox of 93-94% with activity. Therefore the patient does not require oxygen supplementation at this time. She also had a hard time with the oxygen via her CPAP. At this point she is going to sleep without it and when she comes back from her trip to [place] will go ahead and perform an overnight oximetry. I personally reviewed her chest x-rays. She had an x-ray today demonstrating interval improvement of the ground-glass opacities in the fluffy opacities suggesting improvement of the pneumonitis. Patient has been taking prednisone currently finishing up 30 mg in will be tapering down to 20. she has a trip planned to go to [place] when she will be there for Most of the month of May. Therefore, will have her continue on 10 mg of prednisone and will repeat her x-ray when she returns. In the meantime is not clear if this was a medication related issue but unfortunately methotrexate is also a potential culprit. I will request blood work. The patient be traveling to [place] and right now she really does need the oxygen unless her condition worsens again. 02/17/2022 the patient is having worsening shortness of breath. Mainly with activity. Moderate severity. She also has a nonproductive cough. Has not taking any medications for this. She is to have oxygen but then she was no longer using it. She also has a CPAP that has been very helpful for her. However she does need to have a repeat study to get reactivated with a [employer] company. She did have a sleep study ordered and she was called at home. However, is not clear why she did not follow through with sleep study. At this point though she is having worsening breathing symptoms. She continues on the methotrexate she is also on amiodarone. She did have a chest x-ray demonstrating interval worsening of the airspace disease. I will request a CT scan of the chest at this time. Depending on the findings we have to re- evaluate her medications that potentially could result in pulmonary toxicity. during the office visit we did take it for a walking oximetry. The patient did not desaturate to the point of needing oxygen, but, she did decrease to the low 90s. During the ambulation she was found to have audible wheezing. Therefore she completed the 6 minute walk test and had a breathing treatment. She did feel better after the breathing treatment. We will start her on nebulized therapy at this time. 04/21/2022 the patient is here for a pulmonary follow-up visit. Overall the patient states that her breathing is better. She is having some difficulties tolerating the prednisone. In addition to that since stopping the methotrexate she has been having increasing joint pains. She is on Orencia now. She also was taken off the Amiodarone. The patient has not had any recent imaging studies. We need to follow-up with her pneumonitis. I am hopeful that it was stabilized. If she continues to have significant pneumonitis then consider a diagnostic intervention. 06/08/2022 the patient is here for a pulmonary follow-up visit. She continues to improve. She is less short of breath. She still getting some shortness of breath with activity however. The patient is not on any oxygen. She did not qualify during the last visit and she is doing well now. She did start the biologic therapy. She has been off the amiodarone and methotrexate. She continues to be on a small dose of prednisone. The patient is hoping to come off the prednisone due to her uncontrolled diabetes. She did have a chest x-ray that I personally reviewed. It appears as some of the upper lung zone reticular nodular opacities have improved. She still has some basilar changes. This could be vascular congestion versus interstitial lung disease. The patient will be weaned off the prednisone. However, if she develops any worsening symptoms then she is to call the office so we can re-evaluate. The patient will return in 2 months time to the point will repeat her CT scan to assess her interstitial lung disease and see if she needs additional prednisone. 08/11/2022 the patient is here for a pulmonary follow-up visit. Overall the patient has been doing relatively well. She has been off the amiodarone and also the methotrexate. She is also continued on a small dose of prednisone for her pneumonitis. Will go and repeat a chest x-ray to address her progress. Clinically the patient is doing well. Denies any worsening shortness of breath denies any cough. She is done with pain of her wrist and also the arm. It appears that she has some nerve entrapment will need surgery. A small pulmonary standpoint the patient is doing better and may able to proceed with surgery with anesthesia at this time. In the meantime will also maximize her respiratory therapy by starting her on maintenance inhalers the provided with best the capacity for her surgical intervention. 12/18/2022 the patient is here for a pulmonary follow-up visit. The patient overall is doing about same. Complains of dyspnea on exertion. She also has a dry cough. Explained to the patient that she does have underlying pulmonary fibrosis. At this time she is off the potential offending agents. Although her connective tissue disease could resulting interval progression of the interstitial lung disease. Based on her x-rays there is an appear to be any significant progression. She will undergo a chest x-ray today as well. She also did undergo a 6 minutes walk test and she did very well actually improving her pulse ox when ambulating. Please from a respiratory status the patient is doing well. She has not had her surgery yet. from a pulmonary standpoint the patient does have some increased risk for perioperative pulmonary complications but she has this time medically maximized from a pulmonary standpoint he may pursue surgery. 05/07/2024 the patient is here for a pulmonary follow-up visit. He has been awhile since we last saw her. She is doing fairly well. She did have her surgery at some point in still having issue with the hand however. The patient complains of dyspnea on exertion. [id number] severity. Specially when going up a flight of stairs or an incline. She does not have any inhalers at this time. We did talk about her cardiac history she has issues with tachyarrhythmias in atrial fibrillation. Therefore it has important not to give her anything does can have caused her to have significant cardiac interactions. She has been admitted to the hospital few times. She did have a chest x-ray which I personally reviewed demonstrating no evidence of any interstitial lung disease. She had interstitial lung disease in the past with pneumonitis likely secondary to medications. She has been a lot better since she has been off the amiodarone methotrexate. Therefore will hold off on any imaging studies at this time. The patient will start Incruse to try to improve her respiratory capacity. We did go for brief walking oximetry in her pulse ox was 96% throughout the walk which is reassuring. 08/05/2024 the patient is here for a pulmonary follow-up visit. Overall doing well. She did not use the Incruse and uses she is concerned about tachyarrhythmias. She already has a history atrial fibrillation. She does feel palpitations when she uses them. I did try to encourage her that the Incruse will not give her any issues. Although, she really needs more rescue inhaler then a maintenance inhalers and she does not use it regularly. Therefore I will send her Atrovent HFA that she can use as needed comfortably that is not going to affect her heart. We also did talk about her underlying pulmonary issues. We did look at a CT scan that she had back in 2021 demonstrating evidence of interstitial lung disease with pneumonitis. She also has some degree of emphysema. The patient did subsequently have a chest x-ray back in 03/01/2024 demonstrating stable disease without any significant parenchymal disease that I can appreciate. Seems to be stable. Will plan to repeat the chest x-ray in the next 6 months or so. Otherwise will go ahead and send a rescue inhaler, CHRISTA. 01/27/2025 the patient is here for pulmonary follow-up visit. Overall she is doing okay. Seems to be tolerating the ipratropium HFA well for her breathing. Does not affect her heart and she does using does not feel too heavy on her chest. Therefore she does use it as needed. Her asthma has been under control and has not required any prednisone which is reassuring. She does have significant arthritic 80s because of rheumatoid arthritis. Although she has been on good maintenance medications for that. We did look at her last chest x- ray demonstrating some interstitial disease. Although she was supposed to have a repeat chest x-ray and she has not as of yet. I will put on order rim in order for her to get an x-ray before her next visit in 6 months. If she has any worsening symptoms prior to this she will call for an earlier assessment. 08/17/2025 the patient is here for pulmonary follow-up visit. Overall the patient has been doing okay. She does complaint of dyspnea on exertion moderate severity. Does get better with rest. The patient does not want any inhalers at this time. She continues on the Isabella 6 inhibitor for her rheumatoid arthritis. I am hopeful that this is also helping the inflammation of the lungs. Her last chest x-ray I personally reviewed with her back in June 2025 demonstrating some chronic interstitial changes. Will go ahead and repeat her CT scan in 6 months along with PFTs to assess for any progression of disease. We did go for brief walking oximetry and her pulse ox was about 93-95% with activity. She does have some dyspnea mild in severity. Will continue with the current respiratory therapy. If the patient changes her mind about inhalers she can always call and will follow up in 6 months after her CAT scan and breathing studies. If he has any issues prior to this she can always call for recommendations. [facility] Medical History Paroxysmal atrial fibrillation (~2017) Supraventricular tachycardia Paroxysmal A-fib Paroxysmal atrial flutter Esophageal abnormality Encounter for monitoring denosumab therapy Osteoarthritis of left shoulder History of cardiac monitoring Diastolic heart failure Rheumatoid arthritis flare Abdominal discomfort Left shoulder pain Right wrist pain Right shoulder pain Obesity (BMI 30-39.9) Preoperative clearance Abnormal chest x-ray Obesity Pneumonitis Breast pain, left Diastolic dysfunction Pre-op chest exam Osteoarthritis of shoulders, bilateral Asthma-COPD overlap syndrome Personal history of nicotine dependence History of CVA (cerebrovascular accident) (~2017) ILD (interstitial lung disease) Post-menopausal Hypoxia Seropositive rheumatoid arthritis Right hemiplegia (~2017) Chronic anticoagulation GERD (gastroesophageal reflux disease) Rheumatoid arthritis Obstructive sleep apnea on CPAP Essential hypertension Pure hypercholesterolemia Surgical History Cataract History of appendectomy History of foot surgery History of shoulder surgery Family History Father No problems noted. Mother No problems noted. Brother Stomach cancer Social History Household Members: None Housing: Assisted Living Facility Are you a primary in home caregiver to a significant other at home: No Do you presently have visiting nurse or other home services: Yes ([employer]) Alcohol intake: current Alcohol intake frequency: holidays/special occasions only Alcohol type: wine Patient Tobacco Use Status: Former Tobacco user Tobacco use type: Cigarette Years Smoked: 20 years e-Cigarette/Vaping Use: Never Used Second Hand Smoke Exposure: No service: No Current occupational status: retired Cognitive needs: No Hearing needs: Yes Vision needs: No Review of Systems Const All systems reviewed & are unremarkable except as noted in HPI and below Denies daytime sleepiness, Denies difficulty sleeping, Denies snoring, Denies stops breathing during sleep and Denies weakness ENT Denies dizziness Card Denies chest pain, Denies rapid heart rate, Denies irregular heart rhythm, Denies claudication, Denies leg edema, Denies lightheadedness, Denies palpitations, Reports dyspnea, Reports dyspnea on exertion, Denies orthopnea, Denies paroxysmal nocturnal dyspnea and Denies slow heart rate Resp Reports cough, Reports dyspnea, Reports dyspnea on exertion and Denies snoring GI Reports no additional complaints, Denies hematochezia, Denies change in stool character and Denies dyspepsia Musc Denies abnormal gait, Denies muscle weakness and Denies numbness Neuro Denies abnormal gait, Denies dizziness, Denies numbness and Denies weakness Endo Denies palpitations Physical Exam Vital Signs: Last Vital Signs Pulse 65 08/17/25 08:56 BP 110/56 L 08/17/25 08:56 Pulse Ox 95 08/17/25 08:56 Oxygen Delivery Method Room Air 08/17/25 08:56 BMI result Body Mass Index 31.2 Const General: alert Neck Neck: Yes normal visual inspection, Yes full ROM and Yes no lymphadenopathy Chest Chest palpation & inspection: normal inspection of the chest Resp Auscultation: no rales, no wheezes and diminished lung sounds Cardio Rate: regular rate Rhythm: regular rhythm Heart sounds: S1 normal heart sound present and S2 normal heart sound present GI Palpation (GI): Soft to palpation and nontender Auscultation: normal bowel sounds General: Yes no CVA tenderness Back/Spine/Pelvis Back: no CVA tenderness Skin General skin exam: rashes and/or lesions noted Assessment & Plan Assessment & Plan (1) Asthma-COPD overlap syndrome: Code(s): J44.9 - Chronic obstructive pulmonary disease, unspecified Category: Medical Plan: Stable at present (2) Pneumonitis: Comment: Etiology is not clear. Possibly medication related. Although CTD related ILD is also possible. Code(s): J18.9 - Pneumonia, unspecified organism Category: Medical (3) Rheumatoid arthritis: Comment: ++RF +++CCP On Humira from February 2019 to March 2021-discontinued due to congestive heart failure. Orencia started April 2021- present Methotrexate 2018- February 2022 discontinued due to interstitial lung disease Leflunomide added 01/2024 Code(s): M06.9 - Rheumatoid arthritis, unspecified Category: Medical Qualifiers: Rheumatoid arthritis location: multiple sites Rheumatoid factor presence: with rheumatoid factor Qualified Code(s): M05.79 - Rheumatoid arthritis with rheumatoid factor of multiple sites without organ or systems involvement Plan continue Atrovent HFA as needed CT chest PFTs F/U 6 months Orders: Orders CT chest wo IV con 6 Months J44.9 - Chronic obstructive pulmonary disease, unspecified PFT pulmonary function test 6 Months J44.9 - Chronic obstructive pulmonary disease, unspecified Coding Level of Care Code Est Pt Level 4 (55801) Complex EM visit Add On G2211 Diagnoses Asthma-COPD overlap syndrome J44.9 Pneumonitis J18.9 Rheumatoid arthritis involving multiple sites with positive rheumatoid factor M05.79 Rheumatoid arthritis location: multiple sites Rheumatoid factor presence: with rheumatoid factor Time Spent (min) 17
[2025-08-17 08:56] VITALS: BP 110/56; PULSE 65; O2SAT 95; BMI 31.2
--- OUTSIDE RECORDS SUMMARY | 2025-08-17 09:49 | XMS_ITS | Clinical Summary ---
Author Organization [employer] Address [address] [place] [address] Care Team Providers Care Interventional Nurse Name Role Phone Provider, Not In System [...] patient's age to complete this topic Insurance [facility] [place] [place] [address] [place] [address] Care Teams Interventional Nurse Relationship Specialty Start Date End Date Provider, Not In System PCP - General 10/13/22
== END 2025-08-17 09:13 | disposition home or self-care (01) ==
LOC: HO.HPS 08:54
PROVIDERS: PCP Internal Medicine; Visit Provider Hospitalist
DX: J44.9 Chronic obstructive pulmonary disease, unspecified (principal); J18.9 Pneumonia, unspecified organism; M05.79 Rheumatoid arthritis with rheumatoid factor of multiple sites without organ or systems involvement
CPT/HCPCS: 99214; G2211

== ENCOUNTER → 2025-08-17 08:53 | Outpatient (BNVA) | payer OTHER, SELFPAY | PROVIDERS: PCP Internal Medicine; Visit Provider Hospitalist | DX: R06.09 Other forms of dyspnea (principal); J18.9 Pneumonia, unspecified organism; M05.79 Rheumatoid arthritis with rheumatoid factor of multiple sites without organ or systems involvement; J45.909 Unspecified asthma, uncomplicated | CPT/HCPCS: 99212 ==

== ENCOUNTER 2025-08-20 09:24 | Outpatient (AMB) | payer OTHER, SELFPAY ==
--- NOTE | 2025-08-20 10:21 | MHC.OFFVIS ---
Intake Visit Reasons: Osteoporosis/prolia inj Allergies No Known Allergies (No Known Allergies*) Allergy (Verified 08/17/25 08:58) [facility] Medical History Paroxysmal atrial fibrillation (~2017) Supraventricular tachycardia Paroxysmal A-fib Paroxysmal atrial flutter Esophageal abnormality Encounter for monitoring denosumab therapy Osteoarthritis of left shoulder History of cardiac monitoring Diastolic heart failure Rheumatoid arthritis flare Abdominal discomfort Left shoulder pain Right wrist pain Right shoulder pain Obesity (BMI 30-39.9) Preoperative clearance Abnormal chest x-ray Obesity Pneumonitis Breast pain, left Diastolic dysfunction Pre-op chest exam Osteoarthritis of shoulders, bilateral Asthma-COPD overlap syndrome Personal history of nicotine dependence History of CVA (cerebrovascular accident) (~2016) ILD (interstitial lung disease) Post-menopausal Hypoxia Seropositive rheumatoid arthritis Right hemiplegia (~2017) Chronic anticoagulation GERD (gastroesophageal reflux disease) Rheumatoid arthritis Obstructive sleep apnea on CPAP Essential hypertension Pure hypercholesterolemia Surgical History Cataract History of appendectomy History of foot surgery History of shoulder surgery Family History Father No problems noted. Mother No problems noted. Brother Stomach cancer Social History Household Members: None Housing: Assisted Living Facility Are you a primary clinical care leader to a significant other at home: No Do you presently have visiting nurse or other home services: Yes ([employer]) Alcohol intake: current Alcohol intake frequency: holidays/special occasions only Alcohol type: wine Patient Tobacco Use Status: Former Tobacco user Tobacco use type: Cigarette Years Smoked: 20 years e-Cigarette/Vaping Use: Never Used Second Hand Smoke Exposure: No service: No Current occupational status: retired Cognitive needs: No Hearing needs: Yes Vision needs: No Office Meds Prolia 60 mg/mL subcutaneous syringe Performing Provider: Catie Nguyen MD Performing Location: [facility] Administered by: Jinny Joseph RN on 08/20/25 10:10 Dose Route Admin Location Dispensed Lot Number Expiration Date [employer] 60 mg subcut right upper arm 1 mL [id number] 01/10/28 89500-384-39 [employer] Total Dispensed Waste 1 mL 0 % Comments: Contacted a woodworking craftsman, id # [id number] via the [employer] mee to communicate with patient. She had no questions or concerns. Site was clean, dry, and intact. Injection administered in right upper arm. No adverse reactions noted. Patient discharged from practice. Assessment & Plan Assessment & Plan Orders: Orders AMB Denosumab Injection Practice Supplied Today M81.0 - Age-related osteoporosis without current pathological fracture Coding
--- NOTE | 2025-08-21 15:31 | AM.OFFVISNUR ---
Intake Visit Reasons: Osteoporosis/prolia inj Allergies No Known Allergies (No Known Allergies*) Allergy (Verified 08/17/25 08:58) Office Meds Prolia 60 mg/mL subcutaneous syringe Performing Provider: Catie Nguyen MD Performing Location: [facility] [place] Administered by: Jinny Joseph RN on 08/20/25 10:10 Dose Route Admin Location Dispensed Lot Number Expiration Date NDC Street Sweeper 60 mg subcut right upper arm 1 mL [id number] 01/10/28 81739-665-01 [employer] Total Dispensed Waste 1 mL 0 % Comments: Contacted a automotive parts interpreter, id # [id number] via the [employer] mee to communicate with patient. She had no questions or concerns. Site was clean, dry, and intact. Injection administered in right upper arm. No adverse reactions noted. Patient discharged from practice. Assessment & Plan Assessment & Plan Orders: Orders AMB Denosumab Injection Practice Supplied 08/20/25 M81.0 - Age-related osteoporosis without current pathological fracture Coding
== END 2025-08-20 10:15 | disposition home or self-care (01) ==
LOC: HO.RHES 09:25
PROVIDERS: PCP Internal Medicine; Visit Provider Student in an Organized Health Care Education/Training Program
DX: M81.0 Age-related osteoporosis without current pathological fracture (principal)

== ENCOUNTER → 2025-08-20 09:24 | Outpatient (BNVA) | payer OTHER, SELFPAY | PROVIDERS: PCP Internal Medicine; Visit Provider Student in an Organized Health Care Education/Training Program | DX: M81.0 Age-related osteoporosis without current pathological fracture (principal) | CPT/HCPCS: 96372; J0897 ==

== ENCOUNTER 2025-09-23 10:16 | Outpatient (REF) | payer OTHER, SELFPAY ==
[2025-09-23 11:19] LABS: Hematocrit 43.6 % (37.0-47.0); Hemoglobin 13.2 g/dl (12.0-16.0); Imm Gran Abs Auto 0.02 X10*3/uL (0.00-0.03); Imm Gran Pct Auto 0.3 % (0.0-0.4); Lymphocytes Absolute Auto 2.0 X10*3/uL (1.2-4.9); MANUAL DIFF FLAG SCAN; Mean Corpuscular HGB Conc 30.3 g/dl (31.0-35.0); Mean Corpuscular Hemoglobin 27.0 pg (27.0-33.0); Mean Corpuscular Volume 89.3 fL (80.0-98.0); NRBC Abs Auto 0.000 X10*3/uL (0.0-0.012); NRBC Pct Auto 0.0 /100WBC (0.0-0.2); PLT CLUMP 1; Red Blood Count 4.88 X10*6/uL (4.20-5.50); SCAN SMEAR FLAG 1
[2025-09-23 12:02] LABS: Platelet Count 168 X10*3/uL (160-400); White Blood Count 6.5 X10*3/uL (4.8-10.8)
[2025-09-23 12:06] LABS: Alanine Aminotransferase 27 U/L (0-31); Albumin Level 4.4 g/dL (3.5-5.0); Alkaline Phosphatase 65 U/L (39-117); Anion Gap 14 (12-20); Aspartate Amino Transferase 63 U/L (5-31); Blood Urea Nitrogen 19 mg/dL (9-16); Calcium 9.9 mg/dL (8.4-10.2); Carbon Dioxide 25 mmol/L (22-29); Chloride 109 mmol/L (96-108); Cholesterol 153 mg/dL (<200); Estimated Glomerular Filt Rate > 60; HDL Cholesterol 41 mg/dL (>40); Potassium 5.2 mmol/L (3.3-5.1); Sodium 143 mmol/L (135-145); Total Protein 7.7 g/dL (6.5-8.0); Triglycerides 270 mg/dL (<150)
--- OUTSIDE RECORDS SUMMARY | 2025-09-23 12:08 | XMS_ITS | Clinical Summary ---
Author Organization [employer] Address [address] [place] [address] Care Team Providers Care Urogynaecologist Name Role Phone Provider, Not In System [...] patient's age to complete this topic Insurance [facility] [place] [address] [place] [address] Care Teams Urogynaecologist Relationship Specialty Start Date End Date Provider, Not In System PCP - General 10/13/22
== END 2025-09-23 10:17 | disposition home or self-care (01) ==
LOC: HO.LAB 10:16
PROVIDERS: PCP Internal Medicine; Visit Provider Student in an Organized Health Care Education/Training Program
DX: M05.79 Rheumatoid arthritis with rheumatoid factor of multiple sites without organ or systems involvement (principal); Z13.6 Encounter for screening for cardiovascular disorders
CPT/HCPCS: 36415; 80053; 80061; 85025; 85652; 86140

== ENCOUNTER 2025-09-29 09:36 | Outpatient (AMB) | payer OTHER, SELFPAY ==
--- NOTE | 2025-09-29 10:03 | MHC.OFFVIS ---
Vital Signs 09/29/25 10:09 Height 4 ft 11 in Weight 158 lb 11.725 oz BMI 32.1 BP 115/62 Blood Pressure Location Lt brachial Position Sitting Pulse 81 Pulse Source Pulse Oximeter Pulse Oximetry (%) 98 Oxygen Delivery Method Room Air Intake Visit Reasons: osteoporosis/RA Intake Note: Patient presents for Osteoporosis/RA follow up. Readers' Advisory Service Librarian Required: Yes Readers' Advisory Service Librarian Language: Temperature Inspector Services: Readers' Advisory Service Librarian Present Readers' Advisory Service Librarian Name: [id number] Information Interpreted: non-clinical & clinical Allergies No Known Allergies (No Known Allergies*) Allergy (Verified 09/29/25 10:08) HPI Comments Details: Patient is a 70-year-old female with hyperlipidemia, hypertension complicated by CVA and coronary artery disease with subsequent systolic heart failure, paroxysmal atrial flutter/fibrillation on anticoagulation, polyarticular osteoarthritis, and seropositive erosive rheumatoid arthritis here today for follow up Interval History: Patient last seen 05/28/25 with me - On orencia 125mg SC every week and leflunomide 10mg daily - Has been consistent with the Orencia but patient states that the medication is no longer functioning - Complaining of polyarticular joint pain - Started on Actemra Today - On Actemra 162mg SC every week, leflunomide 10mg daily, Prolia 60mg SC every 6 months - Doing well on Actemra - Did have some swelling to the hands and knees 1-2 weesk ago but this has self resolved Rheumatologic History: ++RF +++CCP On Humira from February 2019 to March 2021-discontinued due to congestive heart failure. Orencia started April 2021- 05/2025, lost effectiveness Methotrexate 2018- February 2022 discontinued due to interstitial lung disease Leflunomide added 01/2024 Prednisone stopped 11/2024 Actemra 05/2025 Current Rheumatology Medication(s): Actemra 125mg SC every week Leflunomide 10 mg every day [facility] Medical History Paroxysmal atrial fibrillation (~2017) Supraventricular tachycardia Paroxysmal A-fib Paroxysmal atrial flutter Esophageal abnormality Encounter for monitoring denosumab therapy Osteoarthritis of left shoulder History of cardiac monitoring Diastolic heart failure Rheumatoid arthritis flare Abdominal discomfort Left shoulder pain Right wrist pain Right shoulder pain Obesity (BMI 30-39.9) Preoperative clearance Abnormal chest x-ray Obesity Pneumonitis Breast pain, left Diastolic dysfunction Pre-op chest exam Osteoarthritis of shoulders, bilateral Asthma-COPD overlap syndrome Personal history of nicotine dependence History of CVA (cerebrovascular accident) (~2017) ILD (interstitial lung disease) Post-menopausal Hypoxia Seropositive rheumatoid arthritis Right hemiplegia (~2017) Chronic anticoagulation GERD (gastroesophageal reflux disease) Rheumatoid arthritis Obstructive sleep apnea on CPAP Essential hypertension Pure hypercholesterolemia Surgical History Cataract History of appendectomy History of foot surgery History of shoulder surgery Family History Father No problems noted. Mother No problems noted. Brother Stomach cancer Social History Household Members: None Housing: Assisted Living Facility Are you a primary toddler caregiver to a significant other at home: No Do you presently have visiting nurse or other home services: Yes (temp[employer]) Alcohol intake: current Alcohol intake frequency: holidays/special occasions only Alcohol type: wine Patient Tobacco Use Status: Former Tobacco user Tobacco use type: Cigarette Years Smoked: 20 years e-Cigarette/Vaping Use: Never Used Second Hand Smoke Exposure: No service: No Current occupational status: retired Cognitive needs: No Hearing needs: Yes Vision needs: No Review of Systems Narrative Review of Systems Constitutional: Denies fever, chills, weight loss ENT: Denies vision changes, eye pain or eye redness, dental caries, dry mouth GI: Denies nausea, vomiting, diarrhea, abdominal pain, change in BM Pulm: Denies SOB, LEDESMA, hemoptysis, wheezing Cards: Denies chest pain, palpitations Skin: Denies Raynaud's, rash, nail changes, photosensitivity, APPLICATION INTEGRATION ENGINEER: Denies headaches, weakness, paresthesias, recurrent falls MSK: as per HPI All other systems reviewed and are unremarkable except noted above Physical Exam Exam Exam: Vital signs reviewed Physical Examination CONSTITUITIONAL Patient alert and cooperative. Well appearing and in no apparent painful distress MSK Hands Right Hand: Able to make a fist. No swelling or tenderness to palpation of the MCPs, PIPs or DIPs. Left Hand: Able to make a fist. No swelling or tenderness to palpation of the MCPs, PIPs or DIPs. Herbedens nodes noted bilaterally [place] neck deformities noted bilaterally Wrists Right Wrist: Full ROM to flexion and extension. No swelling or TTP Left Wrist: Full ROM to flexion and extension. No swelling or TTP Elbows Right Elbow: Full ROM. No swelling or TTP. No TTP of the medial epicondyle. No TTP of the lateral epicondyle Left Elbow: Full ROM. No swelling or TTP. No TTP of the medial epicondyle. No TTP of the lateral epicondyle Shoulders Right shoulder: No swelling noted. No TTP of the AC joint. No TTP of the subacromial bursa. No TTP of the posterior shoulder Left shoulder: No swelling noted. No TTP of the AC joint. No TTP of the subacromial bursa. No TTP of the posterior shoulder Decreased ROM Bilateral Knees Right knee: No swelling noted. No TTP of the knee joint line. No TTP of pes anserine bursa Left knee: No swelling noted. No TTP of the knee joint line. No TTP of pes anserine bursa. Ankles Right ankle: Good ankle dorsiflexion and plantar flexion. No swelling. No TTP of the ankle joint Left ankle: Good ankle dorsiflexion and plantar flexion. No swelling. No TTP of the ankle joint Feet Right foot: Negative squeeze test Left foot: Negative squeeze test Tender points? No tenderness to palpation of the bilateral trapezius, supraspinatus, anterior costochondral junctions, bilateral suboccipital muscle insertions SKIN No rashes Vital Signs: Last Vital Signs Pulse 81 09/29/25 10:09 BP 115/62 09/29/25 10:09 Pulse Ox 98 09/29/25 10:09 Oxygen Delivery Method Room Air 09/29/25 10:09 BMI result Body Mass Index 32.1 Results Reviewed Results Reviewed: Laboratory Tests 05/13/25 08/13/25 09/23/25 10:24 09:21 10:30 WBC 6.5 RBC 4.88 Hgb 13.2 Hct 43.6 Plt Count 168 D ESR 91 H 9 Sodium 143 Potassium 5.2 H Chloride 109 H Carbon Dioxide 25 BUN 19 H Creatinine 0.84 AST 33 H 63 H ALT 29 27 Alkaline Phosphatase 65 C-Reactive Protein 6.14 H < 0.04 Triglycerides 270 H Cholesterol 153 LDL Cholesterol, Calc 58 HDL Cholesterol 41 25-OH Vitamin D Total 55.8 Laboratory Tests 12/09/18 08:50 Rheumatoid Factor 1013.0 H Cycl Citrul Peptide IgG >250 H Laboratory Tests 05/13/25 10:24 Hepatitis A IgM Ab Nonreactive Hep Bs Antigen Negative Hep Bs Antibody NONREACTIVE Hep B Core Total Ab Nonreactive Hepatitis C Ab (EIA) Nonreactive TB Test (T-Spot) Com Negative Assessment & Plan Assessment & Plan (1) Rheumatoid arthritis: Comment: ++RF +++CCP On Humira from February 2019 to March 2021-discontinued due to congestive heart failure. Orencia started April 2021- present Methotrexate 2018- February 2022 discontinued due to interstitial lung disease Leflunomide added 01/2024 Code(s): M06.9 - Rheumatoid arthritis, unspecified Category: Medical Qualifiers: Rheumatoid arthritis location: multiple sites Rheumatoid factor presence: with rheumatoid factor Qualified Code(s): M05.79 - Rheumatoid arthritis with rheumatoid factor of multiple sites without organ or systems involvement Plan: #Seropositive Erosive RA Patient is a 70-year-old female with seropositive erosive rheumatoid arthritis. Currently in remission/low disease activity Continue current therapies Plan - Actemra 162mg SC every week - Leflunomide 10mg daily - RTC 4 months - Labs before next visit: CBC, CMP, ESR, CRP, lipid panel (2) Osteoarthritis of left shoulder: Code(s): M19.012 - Primary osteoarthritis, left shoulder Category: Medical Qualifiers: Osteoarthritis type: primary Qualified Code(s): M19.012 - Primary osteoarthritis, left shoulder Plan: #OA left shoulder Patient with osteoarthritis to the left shoulder status post replacement. Plan - Ortho for follow up - Topical diclofenac 1% qid (3) Osteoporosis: Comment: DEXA 12/2023. Left femur neck -2.3, Left femur total -1.4, AP spine -2.6 Prolia started 01/19/2023 Code(s): M81.0 - Age-related osteoporosis without current pathological fracture Category: Medical Qualifiers: Osteoporosis type: age-related Presence of current pathological fracture: without current pathological fracture Qualified Code(s): M81.0 - Age-related osteoporosis without current pathological fracture Plan: #Osteoporosis without history of fracture Patient with osteoporosis without history of fracture. Currently on Prolia and is due for her next dose in February however patient is going to [place] so we will give her her dose early Plan - Prolia dose in February - Next DEXA 2025 (4) Encounter for monitoring denosumab therapy: Code(s): Z51.81 - Encounter for therapeutic drug level monitoring; Z79.620 - tank terminal gauger (current) use of immunosuppressive biologic Category: Medical Plan: #Long-term use of Denosumab Discussed with patient the risks and benefits of denosumab (Prolia) for the management of their osteoporosis Benefits include improved bone density, decreased fracture risk Risks include rapid bone loss if denosumab stopped, osteonecrosis of the jaw especially in patients with poor oral hygiene/diabetes/use of glucocorticoids/age greater than 65 years, atypical femoral fractures, injection site reactions. Mild increased risk of infections due to RANKL on T helper cells, increased risk of hypocalcemia especially in CKD patients Keep vitamin-D at least 35 ng/mL Advised to delay non emergent dental procedures to toward the end of the 6 month cycle and if they plan to stop denosumab would need to continue antiresorptive to maintain the effects of denosumabe (5) Encounter for monitoring tocilizumab therapy: Code(s): Z51.81 - Encounter for therapeutic drug level monitoring; Z79.620 - tank terminal gauger (current) use of immunosuppressive biologic Plan: #Long-term Use of IL 6 Inhibitors: Tocilizumab/Sarilumab Discussed the risks and benefits of IL6 inhibitors with the management of this patient's rheumatic condition. Benefits include decreased pain, improved mortality, improved quality of life Risks include LFT abnormalities, elevated triglycerides, GI perforations Contraindicated in a patient with history of diverticulitis Monitoring: CBC, CMP, triglycerides (6) Encounter for monitoring leflunomide therapy: Code(s): Z51.81 - Encounter for therapeutic drug level monitoring; Z79.69 - tank terminal gauger (current) use of other immunomodulators and immunosuppressants Plan: #Long-term leflunomide Discussed with patient the benefits and risks of leflunomide for managing the rheumatic condition Benefits include: - Reduced pain, maintenance of remission and reduction of flares Risks include: - GI upset especially diarrhea, skin rash, cytopenias, hepatotoxicity, weight loss, neuropathy Leflunomide is highly teratogenic. Has a very long half-life. Needs cholestyramine washout if there is desire for Initiation: CBC, BMP, LFTs, hepatitis-B and C serologies every 2-4 weeks for 3 months Monitoring: CBC, BMP, LFTs, hepatitis B and C serologies Plan I spent 30 minutes reviewing the record and labs, taking a history using the parts interpreter, examining the patient, discussing the treatment plan, and explaining side effects and documenting in the medical record Medications: New leflunomide 10 mg PO DAILY 90 tabs 1RF M05.79 - Rheumatoid arthritis with rheumatoid factor of multiple sites without organ or systems involvement Changed From tocilizumab (Actemra ACTPen) 162 mg subcut WE M05.79 - Rheumatoid arthritis with rheumatoid factor of multiple sites without organ or systems involvement To tocilizumab (Actemra ACTPen) 162 mg (0.9 mL) subcut QWEEK 3.6 mL 5RF M05.79 - Rheumatoid arthritis with rheumatoid factor of multiple sites without organ or systems involvement Coding Level of Care Code Est Pt Level 4 (85132) Complex EM visit Add On G2211 Diagnoses Rheumatoid arthritis involving multiple sites with positive rheumatoid factor M05.79 Rheumatoid arthritis location: multiple sites Rheumatoid factor presence: with rheumatoid factor Primary osteoarthritis of left shoulder M19.012 Osteoarthritis type: primary Age-related osteoporosis without current pathological fracture M81.0 Osteoporosis type: age-related Presence of current pathological fracture: without current pathological fracture Encounter for monitoring denosumab therapy Z51.81; Z79.620 Encounter for monitoring tocilizumab therapy Z51.81; Z79.620 Encounter for monitoring leflunomide therapy Z51.81; Z79.69
[2025-09-29 10:09] VITALS: BP 115/62; PULSE 81; O2SAT 98; BMI 32.1
== END 2025-09-29 10:39 | disposition home or self-care (01) ==
LOC: HO.RHES 09:37
PROVIDERS: PCP Internal Medicine; Visit Provider Student in an Organized Health Care Education/Training Program
DX: M05.79 Rheumatoid arthritis with rheumatoid factor of multiple sites without organ or systems involvement (principal); M19.012 Primary osteoarthritis, left shoulder; M81.0 Age-related osteoporosis without current pathological fracture; Z51.81 Encounter for therapeutic drug level monitoring; Z79.620 Long term (current) use of immunosuppressive biologic; Z79.69 Long term (current) use of other immunomodulators and immunosuppressants
CPT/HCPCS: 99214; G2211

== ENCOUNTER → 2025-09-29 09:36 | Outpatient (BNVA) | payer OTHER, SELFPAY | PROVIDERS: PCP Internal Medicine; Visit Provider Student in an Organized Health Care Education/Training Program | DX: M05.79 Rheumatoid arthritis with rheumatoid factor of multiple sites without organ or systems involvement (principal); M19.012 Primary osteoarthritis, left shoulder; Z79.620 Long term (current) use of immunosuppressive biologic; Z79.69 Long term (current) use of other immunomodulators and immunosuppressants; M81.0 Age-related osteoporosis without current pathological fracture | CPT/HCPCS: 99212 ==